=== PATIENT | male | born 1955 | race American Indian/Alaskan Native ===

== ENCOUNTER 2016-04-01 19:13 | Inpatient (IN) | payer MEDICAID, OTHER ==
--- NOTE | 2016-04-01 20:47 | Emergency Department Report ---
HPI - General Chief Complaint: Dizziness Time Seen by Provider: 04/01/16 20:31 - HPI HPI: This is a 60-year-old Afro-Polish male presents to the emergency department from home by EMS with complaint of some dizziness. Patient says that the dizziness occurs when he goes from sitting or laying to standing. When he is just laying down he does not have this dizziness. He denies any headache, vision change, chest pain, shortness of breath, nausea, vomiting or fever. He did not take anything for symptoms prior to presentation. This is been going on for the past 2 days. No recent travel or sick contacts at home. He does not have a primary care doctor. He has a past medical history of non-insulin- dependent diabetes. Patient says he had the same set of symptoms 1 year ago and at that point he required a blood transfusion and was admitted here to [facility]. ED Past Medical Hx - Past Medical History Hx Congestive Heart Failure: No Hx Diabetes: Yes Hx Asthma: No Hx COPD: No - Surgical History Past Surgical History?: No - Social History Smoking Status: Current Every Day Smoker Substance Use Type: None - Medications Home Medications: Home Medications Medication Instructions Recorded Confirmed Last Taken Type metFORMIN 500 mg PO DAILY 04/01/16 04/01/16 Unknown History ED Review of Systems ROS: Stated complaint: DIZZY AND WEAK Other details as noted in HPI Comment: All other systems reviewed and negative Constitutional: denies: chills, fever Eyes: denies: eye pain, eye discharge, vision change ENT: denies: ear pain, throat pain Respiratory: denies: cough, shortness of breath, wheezing Cardiovascular: denies: chest pain, palpitations Gastrointestinal: denies: abdominal pain, nausea, diarrhea Genitourinary: denies: urgency, dysuria Musculoskeletal: denies: back pain, joint swelling, arthralgia Skin: denies: rash, lesions Neurological: other (dizziness/lightheaded). denies: headache, weakness, paresthesias Physical Exam - Physical Exam Vital Signs: Vital Signs 04/01/16 20:06 Temperature 98 F Pulse Rate 83 Respiratory 16 Rate Blood Pressure 136/83 O2 Sat by Pulse 100 Oximetry Physical Exam: GENERAL: The patient is well-developed well-nourished. HEENT: Normocephalic. Atraumatic. Extraocular motions are intact. Patient has moist mucous membranes. Pupils equal reactive to light bilaterally. Slightly pale conjunctiva bilaterally. NECK: Supple. Trachea is midline. CHEST/LUNGS: Clear to auscultation. There is no respiratory distress noted. HEART/CARDIOVASCULAR: Regular. There is no tachycardia. There is no gallop rub or murmur. ABDOMEN: Abdomen is soft, nontender. Patient has normal bowel sounds. There is no abdominal distention. SKIN: There is no rash. There is no edema. There is no diaphoresis. NEURO: The patient is awake, alert, and oriented. The patient is cooperative. The patient has no focal neurologic deficits. The patient has normal speech. Cranial nerves II through XII grossly intact. No dysmetria or pronator drift. MUSCULOSKELETAL: There is no tenderness or deformity. There is no limitation range of motion. There is no evidence of acute injury. Muscle strength 5 out of 5 for upper and lower extremities bilaterally. Cap refill less than 2 seconds. ED Course Vital Signs 04/01/16 20:06 Temperature 98 F Pulse Rate 83 Respiratory 16 Rate Blood Pressure 136/83 O2 Sat by Pulse 100 Oximetry ED Medical Decision Making - Lab Data Result diagrams: 04/01/16 20:44 04/01/16 20:44 - EKG Data -: EKG Interpreted by Tx EKG shows normal: sinus rhythm, axis (LAD), intervals, QRS complexes (left anterior fascicular block, LVH), ST-T waves (early repolarization) Rate: normal - EKG Data When compared to previous EKG there are: changes noted (LVH and early repolarization worse in this EKG from previous) Interpretation: other (sinus rhythm, left anterior fascicular block, LVH, early repolarization) - Medical Decision Making 60-year-old male presents to the emergency department with complaint of nonspecific lightheadedness and/or dizziness that seems to occur or worsen with any type of exertion or movement. Patient does have some fatigable horizontal nystagmus but otherwise does not have any focal, motor or sensory deficits. The patient says that this happened to him about 1 year ago and at that point he required transfusion for anemia. Once again the patient appears to have symptomatic anemia with hemoglobin of 6.8. 2 units of packed red blood cells been ordered and the patient be admitted to hospital for further evaluation and treatment. Patient was accepted for admission by the hospitalist, Dr marquez. - Differential Diagnosis symptomatically anemia, vasovagal, orthostatic hypotension, GA Critical Care Time: No Critical care attestation.: If time is entered above; I have spent that time in minutes in the direct care of this critically ill patient, excluding procedure time. ED Disposition Clinical Impression: Symptomatic anemia, Dizziness, Lightheadedness, Thrombocytosis, History of hepatitis C Disposition: OP ADMITTED IP TO THIS HOSP Is pt being admited?: Yes Condition: Stable Time of Disposition: 22:43
--- NOTE | 2016-04-01 21:04 | Admit Criteria Form ---
Admission Criteria Documentation: DIZZINESS Clinical Indications for Admission to Inpatient Care (Place 'X' for any and all applicable criteria): Admission is indicated for ANY ONE of the following(1)(2)(3)(4): [X ]I. Inpatient admission required rather than observation care (Also use Dizziness: Observation Care as appropriate) because of ANY ONE of the following: [ ]a) Hemodynamic instability that is severe or persistent [ X]b) Signs or symptoms that are severe or persistent (eg, vomit, orthostasis, inability to ambulate) [ ]c) Cardiac arrhythmias of immediate concern [ ]d) Severe (new) neurologic findings requiring inpatient care as indicated by ANY ONE of the following(6)(7): [ ]1) Cerebral bleeding, ischemia, or vasospasm(8)(9) [ ]2) Increased intracranial pressure or hydrocephalus(10)(11)(12) [ ]3) Papilledema [ ]4) Cerebral edema [ ]5) Mass effect on CT scan [ ]e) Continuous IV infusion of anticoagulation, platelet inhibitor, vasoactive, or antiarrhythmic medication [ ]f) Cerebral bleeding, hydrocephalus, or vasospasm monitoring(14) [ ]g) Increased intracranial pressure or cerebral edema monitoring [ ]h) Vomiting that is severe or persistent [ ]i) Other condition, treatment or monitoring requiring inpatient admission [ ]II. A suspected etiology that requires admission for treatment [ ]III. Acute bacterial labyrinthitis [ ]IV. Cerebellar, brainstem, or cerebral ischemia or hemorrhage (5) Extended stay beyond goal length of stay may be needed for evaluating and treating a specific cause of dizziness, including(32) [ ]a) Head injury (Also use Traumatic Brain Injury, Nonsurgical Treatment guideline) [ ]b) New-onset vertebrobasilar vascular insufficiency [ ]c) Acute Meniere disease with intractable symptoms [ ]d) Cardiac arrhythmias or conduction defects [ ]e) Acute neurologic event causing dizziness [ ]f) Myocardial ischemia [ ]g) Acute bacterial labyrinthitis. [ ]h) Severe acute vestibular neuronitis The original [email or web address] content created by [email or web address] has been revised. The portions of the content which have been revised are identified through the use of italic text or in bold, and [facility] [employer] has neither reviewed nor approved the modified material. All other unmodified content is copyright [facility]. Please see references footnoted in the original [facility] edition 2016 Admission Criteria Met: Pending
[2016-04-01 21:25] LABS: Basophils % (Auto) 1.5 % (0.0-1.8); Eosinophils % (Auto) 0.6 % (0.0-4.3); Mean Corpuscular HGB Conc 28 % (32-34); Platelet Count 965 K/mm3 (140-440); Red Blood Count 4.11 M/mm3 (3.65-5.03); White Blood Count 4.7 K/mm3 (4.5-11.0)
[2016-04-01 21:30] LABS: Hematocrit 24.4 % (35.5-45.6); Hemoglobin 6.8 gm/dl (11.8-15.2); Mean Corpuscular Hemoglobin 17 pg (28-32); Mean Corpuscular Volume 59 fl (84-94)
[2016-04-01 21:32] LABS: Anion Gap 21 mmol/L; BUN/Creatinine Ratio 28.33; Blood Urea Nitrogen 17 mg/dL (9-20); Carbon Dioxide 25 mmol/L (22-30); Chloride 96.2 mmol/L (98-107); Glucose 244 mg/dL (75-100); Potassium 4.4 mmol/L (3.6-5.0); Sodium 138 mmol/L (137-145)
[2016-04-01] MEDS ORDERED: NACL 0.9% 500 ML 500 ML IV ONE (21:48)
--- NOTE | 2016-04-01 22:26 | History and Physical Report ---
History of Present Illness Date of examination: 04/01/16 Date of admission: 04/01/16 Chief complaint: presyncope History of present illness: This is a 60-year-old male presents to the emergency department from home by EMS with complaint of some dizziness. Patient says that the dizziness occurs when he goes from sitting or laying to standing. When he is just laying down he does not have this dizziness. He denies any headache, vision change, chest pain, shortness of breath or fever. No recent travel or sick contacts at home. He does not have a primary care doctor. He has a past medical history of [id number] diabetes. Patient had a similar episode and was hospitalized here April 2015. The patient did not have any endoscopy at that time. The patient reports having anemia for at least 10 years and has been suspected of having chronic GI blood loss. His workup in [facility] has included several colonoscopies, the last of which was approximately two years ago and was unrevealing. He reports having upper endoscopy as well which has been negative although has never had a pill camera test. The patient has been on iron therapy chronically. The patient denies any weight loss, melena, rectal bleeding, abdominal pain, nausea or vomiting. Past History Past Medical History: diabetes, hepatitis (C) Past Surgical History: No surgical history Social history: no significant social history Family history: no significant family history Medications and Allergies Allergies Allergy/AdvReac Type Severity Reaction Status Date / Time No Known Allergies Allergy Verified 04/09/15 13:02 Home Medications Medication Instructions Recorded Confirmed Last Taken Type metFORMIN 500 mg PO DAILY 04/01/16 04/01/16 Unknown History Review of Systems All systems: negative Exam - Constitutional Vitals: Temp Pulse Resp BP Pulse Ox 98 F 83 16 136/83 100 04/01/16 20:06 04/01/16 20:06 04/01/16 20:06 04/01/16 20:06 04/01/16 20:06 General appearance: Present: no acute distress, well-nourished - EENT Eyes: Present: PERRL, scleral icterus ENT: hearing intact, clear oral mucosa - Neck Neck: Present: supple, normal ROM - Respiratory Respiratory effort: normal Respiratory: bilateral: CTA - Cardiovascular Heart Sounds: Present: S1 & S2. Absent: rub, click - Extremities Extremities: pulses symmetrical, No edema Peripheral Pulses: within normal limits - Abdominal General gastrointestinal: Present: soft, non-tender, non-distended, normal bowel sounds Male genitourinary: Present: normal - Integumentary Integumentary: Present: clear, warm, dry - Musculoskeletal Musculoskeletal: gait normal, strength equal bilaterally - Psychiatric Psychiatric: appropriate mood/affect, intact judgment & insight - Neurologic Neurologic: CNII-XII intact, moves all extremities Results - Labs CBC & Chem 7: 04/01/16 20:44 04/01/16 20:44 Labs: Laboratory Last Values WBC 4.7 K/mm3 (4.5-11.0) 04/01/16 20:44 RBC 4.11 M/mm3 (3.65-5.03) 04/01/16 20:44 Hgb 6.8 gm/dl (11.8-15.2) L 04/01/16 20:44 Hct 24.4 % (35.5-45.6) L 04/01/16 20:44 MCV 59 fl (84-94) L 04/01/16 20:44 MCH 17 pg (28-32) L 04/01/16 20:44 MCHC 28 % (32-34) L 04/01/16 20:44 RDW 19.0 % (13.2-15.2) H 04/01/16 20:44 Plt Count 965 K/mm3 (140-440) H 04/01/16 20:44 Lymph % (Auto) 19.9 % (13.4-35.0) 04/01/16 20:44 Labette % (Auto) 8.6 % (0.0-7.3) H 04/01/16 20:44 Eos % (Auto) 0.6 % (0.0-4.3) 04/01/16 20:44 Baso % (Auto) 1.5 % (0.0-1.8) 04/01/16 20:44 Lymph # 0.9 K/mm3 (1.2-5.4) L 04/01/16 20:44 Labette # 0.4 K/mm3 (0.0-0.8) 04/01/16 20:44 Eos # 0.0 K/mm3 (0.0-0.4) 04/01/16 20:44 Baso # 0.1 K/mm3 (0.0-0.1) 04/01/16 20:44 Seg Neutrophils % 69.4 % (40.0-70.0) 04/01/16 20:44 Seg Neutrophils # 3.3 K/mm3 (1.8-7.7) 04/01/16 20:44 Carbon Dioxide 25 mmol/L (22-30) 04/01/16 20:44 BUN 17 mg/dL (9-20) 04/01/16 20:44 Creatinine 0.6 mg/dL (0.8-1.5) L 04/01/16 20:44 Estimated GFR > 60 ml/min 04/01/16 20:44 BUN/Creatinine Ratio 28.33 % 04/01/16 20:44 Glucose 244 mg/dL (75-100) H 04/01/16 20:44 POC Glucose 273 (70-105) H 04/01/16 20:15 Calcium 9.0 mg/dL (8.4-10.2) 04/01/16 20:44 Troponin T < 0.010 ng/mL (0.00-0.029) 04/01/16 20:44 TSH 1.220 mlU/mL (0.270-4.200) 04/01/16 20:51 Assessment and Plan Assessment and plan: 1. Anemia likely secondary to chronic blood loss. He has had some workup in the past which has included colonoscopy and probably upper endoscopy by his description elsewhere. He has not had a capsule endoscopy test to exclude small bowel pathology. Patient was scheduled for outpatient workup per GI's note from April 2015. Patient however denies any endoscopy for the past 2 years since he has been in [place]. Consider GI consultation. Transfuse 2 units packed red blood cells. Patient with no signs of active bleeding. Check iron studies, B12, folate and LDH levels. Protonix 40 mg IV twice a day. 2. Hepatitis C. Follow-up with GI. 3. Presyncope. Etiology secondary to above/orthostasis. 4. DVT prophylaxis. Hold anticoagulation, SCDs only.
[2016-04-01] MEDS ORDERED: DULCOLAX PR PRN (22:31)
[2016-04-01] MEDS ORDERED: ZOFRAN IV PRN (22:31)
[2016-04-01] MEDS ORDERED: MILK OF MAGNESIA PO PRN (22:31)
[2016-04-01 23:30] LABS: Albumin/Globulin Ratio 1.3 %; Bilirubin,Direct 0.2 mg/dL (0-0.2); Bilirubin,Indirect 0.3 mg/dL; Bilirubin,Total 0.5 mg/dL (0.1-1.2); Iron 12 ug/dL (49-181); Iron 13 ug/dL (49-181); Lactate Dehydrogenase 118 units/L (91-180); Total Protein 7.1 g/dL (6.3-8.2)
[2016-04-01 23:40] LABS: Total Iron Binding Capacity 524 mcg/dL (250-450)
[2016-04-02] MEDS: TYLENOL PO PRN ×2 (02:33→08:09)
[2016-04-02 07:22] LABS: Mean Corpuscular HGB Conc 28 % (32-34); Platelet Count 775 K/mm3 (140-440); Red Blood Count 3.52 M/mm3 (3.65-5.03); Red Cell Distribution Width 18.8 % (13.2-15.2); White Blood Count 4.9 K/mm3 (4.5-11.0)
[2016-04-02 07:41] LABS: Anion Gap 18 mmol/L; BUN/Creatinine Ratio 28.33; Blood Urea Nitrogen 17 mg/dL (9-20); Calcium 8.5 mg/dL (8.4-10.2); Carbon Dioxide 25 mmol/L (22-30); Chloride 95.5 mmol/L (98-107); Glucose 201 mg/dL (75-100); Potassium 3.7 mmol/L (3.6-5.0); Sodium 135 mmol/L (137-145)
[2016-04-02 07:48] LABS: Hematocrit 20.9 % (35.5-45.6); Mean Corpuscular Hemoglobin 17 pg (28-32); Mean Corpuscular Volume 59 fl (84-94)
[2016-04-02 07:51] LABS: Hemoglobin 5.9 gm/dl (11.8-15.2)
[2016-04-02 09:06] LABS: Basophils % (Manual) 0 % (0.0-1.8); Blastocytes % (Manual) 0 %
[2016-04-02 09:07] LABS: Anisocytosis 1+; Elliptocytes Few; Hypochromasia 3+; Tear Drop Cells Few
[2016-04-02 09:08] LABS: Large Platelets Few; Microcytosis 2+; Ovalocytes Few; Platelet Estimate Appears Increased; Polychromasia Few
[2016-04-02 09:09] LABS: Diff Status Complete
[2016-04-02] MEDS: PROTONIX IV SCH ×2 (09:24→21:34)
[2016-04-02] MEDS ORDERED: FLUARIX QUAD 2016-2017(36 MOS+) IM ONE (12:00)
[2016-04-02] MEDS ORDERED: PNEUMOVAX 23 IM ONE (12:00)
--- NOTE | 2016-04-02 17:08 | Progress Note ---
Assessment and Plan Assessment and plan: -- Anemia likely secondary to chronic blood loss. Patient had extensive evaluation in the past by GI , received multiple units of blood transfusion Transfuse 2 units of PRBC closely monitor H&H , additional PRBC if needed We will consider GI evaluation if any change, patient will follow with GI as outpatient upon discharge --GI recommended capsule endoscopy as outpatient getting previous admission -- Hepatitis C. continue current management -- Presyncope. Candidate for symptomatic anemia -- DVT prophylaxis. No pharmacologic anticoagulation, use SCDs . Patient full CODE STATUS Condition treatment plan discussed in detail with the patient as well as his nurse and the case management History Interval history: patient seen and evaluated medical records reviewed No new events reported by the nursing staff Patient has significant drop in H&H Denies headache dizziness Denies hematemesis or melena Vital signs stable Hospitalist Physical - Constitutional Vitals: Temp Pulse Resp BP Pulse Ox 98.5 F 86 18 130/69 97 04/02/16 16:00 04/02/16 16:00 04/02/16 16:00 04/02/16 16:00 04/02/16 12:16 General appearance: Present: no acute distress, well-nourished - EENT Eyes: Present: PERRL, EOM intact - Neck Neck: Present: supple, normal ROM - Respiratory Respiratory effort: normal Respiratory: bilateral: diminished, negative: rales, rhonchi, wheezing - Cardiovascular Rhythm: regular Heart Sounds: Present: S1 & S2 - Extremities Extremities: no ischemia, pulses intact, pulses symmetrical Peripheral Pulses: within normal limits - Abdominal General gastrointestinal: soft, non-tender, non-distended, normal bowel sounds - Integumentary Integumentary: Present: clear, warm - Psychiatric Psychiatric: appropriate mood/affect, cooperative - Neurologic Neurologic: CNII-XII intact, moves all extremities Results - Labs CBC & Chem 7: 04/02/16 06:39 04/02/16 06:39 Labs: Laboratory Last Values WBC 4.9 K/mm3 (4.5-11.0) 04/02/16 06:39 RBC 3.52 M/mm3 (3.65-5.03) L 04/02/16 06:39 Hgb 5.9 gm/dl (11.8-15.2) L* 04/02/16 06:39 Hct 20.9 % (35.5-45.6) L 04/02/16 06:39 MCV 59 fl (84-94) L 04/02/16 06:39 MCH 17 pg (28-32) L 04/02/16 06:39 MCHC 28 % (32-34) L 04/02/16 06:39 RDW 18.8 % (13.2-15.2) H 04/02/16 06:39 Plt Count 775 K/mm3 (140-440) H 04/02/16 06:39 Lymph % (Auto) 19.9 % (13.4-35.0) 04/01/16 20:44 Drew % (Auto) 8.6 % (0.0-7.3) H 04/01/16 20:44 Eos % (Auto) 0.6 % (0.0-4.3) 04/01/16 20:44 Baso % (Auto) 1.5 % (0.0-1.8) 04/01/16 20:44 Lymph # 0.9 K/mm3 (1.2-5.4) L 04/01/16 20:44 Drew # 0.4 K/mm3 (0.0-0.8) 04/01/16 20:44 Eos # 0.0 K/mm3 (0.0-0.4) 04/01/16 20:44 Baso # 0.1 K/mm3 (0.0-0.1) 04/01/16 20:44 Add Manual Diff Complete 04/02/16 06:39 Total Counted 100 04/02/16 06:39 Seg Neutrophils % 69.4 % (40.0-70.0) 04/01/16 20:44 Seg Neuts % (Manual) 54.0 % (40.0-70.0) 04/02/16 06:39 Band Neutrophils % 0 % 04/02/16 06:39 Lymphocytes % (Manual) 33.0 % (13.4-35.0) 04/02/16 06:39 Reactive Lymphs % (Man) 0 % 04/02/16 06:39 Monocytes % (Manual) 9.0 % (0.0-7.3) H 04/02/16 06:39 Eosinophils % (Manual) 4.0 % (0.0-4.3) 04/02/16 06:39 Basophils % (Manual) 0 % (0.0-1.8) 04/02/16 06:39 Metamyelocytes % 0 % 04/02/16 06:39 Myelocytes % 0 % 04/02/16 06:39 Promyelocytes % 0 % 04/02/16 06:39 Blast Cells % 0 % 04/02/16 06:39 Nucleated RBC % Not Reportable 04/02/16 06:39 Seg Neutrophils # 3.3 K/mm3 (1.8-7.7) 04/01/16 20:44 Seg Neutrophils # Man 2.6 K/mm3 (1.8-7.7) 04/02/16 06:39 Band Neutrophils # 0.0 K/mm3 04/02/16 06:39 Lymphocytes # (Manual) 1.6 K/mm3 (1.2-5.4) 04/02/16 06:39 Abs React Lymphs (Man) 0.0 K/mm3 04/02/16 06:39 Monocytes # (Manual) 0.4 K/mm3 (0.0-0.8) 04/02/16 06:39 Eosinophils # (Manual) 0.2 K/mm3 (0.0-0.4) 04/02/16 06:39 Basophils # (Manual) 0.0 K/mm3 (0.0-0.1) 04/02/16 06:39 Metamyelocytes # 0.0 K/mm3 04/02/16 06:39 Myelocytes # 0.0 K/mm3 04/02/16 06:39 Promyelocytes # 0.0 K/mm3 04/02/16 06:39 Blast Cells # 0.0 K/mm3 04/02/16 06:39 WBC Morphology Not Reportable 04/02/16 06:39 Hypersegmented Neuts Not Reportable 04/02/16 06:39 Hyposegmented Neuts Not Reportable 04/02/16 06:39 Hypogranular Neuts Not Reportable 04/02/16 06:39 Smudge Cells Not Reportable 04/02/16 06:39 Toxic Granulation Not Reportable 04/02/16 06:39 Toxic Vacuolation Not Reportable 04/02/16 06:39 Dohle Bodies Not Reportable 04/02/16 06:39 Pelger-Huet Anomaly Not Reportable 04/02/16 06:39 Katia Rods Not Reportable 04/02/16 06:39 Platelet Estimate Appears increased 04/02/16 06:39 Clumped Platelets Not Reportable 04/02/16 06:39 Plt Clumps, EDTA Not Reportable 04/02/16 06:39 Large Platelets Few 04/02/16 06:39 Giant Platelets Not Reportable 04/02/16 06:39 Platelet Satelliting Not Reportable 04/02/16 06:39 Plt Morphology Comment Not Reportable 04/02/16 06:39 RBC Morphology Not Reportable 04/02/16 06:39 Dimorphic RBCs Not Reportable 04/02/16 06:39 Polychromasia Few 04/02/16 06:39 Hypochromasia 3+ 04/02/16 06:39 Poikilocytosis Not Reportable 04/02/16 06:39 Anisocytosis 1+ 04/02/16 06:39 Microcytosis 2+ 04/02/16 06:39 Macrocytosis Not Reportable 04/02/16 06:39 Spherocytes Not Reportable 04/02/16 06:39 Pappenheimer Bodies Not Reportable 04/02/16 06:39 Sickle Cells Not Reportable 04/02/16 06:39 Target Cells Not Reportable 04/02/16 06:39 Tear Drop Cells Few 04/02/16 06:39 Ovalocytes Few 04/02/16 06:39 Helmet Cells Not Reportable 04/02/16 06:39 Suarez-Saxton Bodies Not Reportable 04/02/16 06:39 Eagan Rings Not Reportable 04/02/16 06:39 Luke Cells Not Reportable 04/02/16 06:39 Bite Cells Not Reportable 04/02/16 06:39 Crenated Cell Not Reportable 04/02/16 06:39 Elliptocytes Few 04/02/16 06:39 Acanthocytes (Spur) Not Reportable 04/02/16 06:39 Rouleaux Not Reportable 04/02/16 06:39 Hemoglobin C Crystals Not Reportable 04/02/16 06:39 Schistocytes Not Reportable 04/02/16 06:39 Malaria parasites Not Reportable 04/02/16 06:39 Jl Bodies Not Reportable 04/02/16 06:39 Hem Pathologist Commnt No 04/02/16 06:39 Sodium 135 mmol/L (137-145) L 04/02/16 06:39 Potassium 3.7 mmol/L (3.6-5.0) 04/02/16 06:39 Chloride 95.5 mmol/L (98-107) L 04/02/16 06:39 Carbon Dioxide 25 mmol/L (22-30) 04/02/16 06:39 Anion Gap 18 mmol/L 04/02/16 06:39 BUN 17 mg/dL (9-20) 04/02/16 06:39 Creatinine 0.6 mg/dL (0.8-1.5) L 04/02/16 06:39 Estimated GFR > 60 ml/min 04/02/16 06:39 BUN/Creatinine Ratio 28.33 % 04/02/16 06:39 Glucose 201 mg/dL (75-100) H 04/02/16 06:39 POC Glucose 273 (70-105) H 04/01/16 20:15 Calcium 8.5 mg/dL (8.4-10.2) 04/02/16 06:39 Iron 12 ug/dL (49-181) L 04/01/16 22:47 TIBC 524 mcg/dL (250-450) H 04/01/16 22:47 Total Bilirubin 0.5 mg/dL (0.1-1.2) 04/01/16 22:47 Direct Bilirubin 0.2 mg/dL (0-0.2) 04/01/16 22:47 Indirect Bilirubin 0.3 mg/dL 04/01/16 22:47 AST 17 units/L (5-40) 04/01/16 22:47 ALT 10 units/L (7-56) 04/01/16 22:47 Alkaline Phosphatase 89 units/L (35-129) 04/01/16 22:47 Lactate Dehydrogenase 118 units/L (91-180) 04/01/16 22:47 Troponin T < 0.010 ng/mL (0.00-0.029) 04/02/16 01:27 Total Protein 7.1 g/dL (6.3-8.2) 04/01/16 22:47 Albumin 4.0 g/dL (3.9-5) 04/01/16 22:47 Albumin/Globulin Ratio 1.3 % 04/01/16 22:47 Vitamin B12 659.9 pg/mL (211-911) 04/01/16 22:47 Folate 17.00 ng/mL (7.3-26.0) 04/01/16 22:47 TSH 1.220 mlU/mL (0.270-4.200) 04/01/16 20:51 Blood Type A POSITIVE 04/01/16 22:47 Antibody Screen Negative 04/01/16 22:47 Crossmatch See Detail 04/01/16 22:47
[2016-04-03] MEDS: PROTONIX IV SCH ×2 (10:37→21:41)
[2016-04-03] MEDS ORDERED: PNEUMOVAX 23 IM ONE (12:00)
[2016-04-03] MEDS ORDERED: FLUARIX QUAD 2016-2017(36 MOS+) IM ONE (12:00)
--- NOTE | 2016-04-03 14:55 | Progress Note ---
Hospitalist Physical - Constitutional Vitals: Temp Pulse Resp BP Pulse Ox 98.1 F 88 20 133/71 100 04/03/16 08:00 04/03/16 08:00 04/03/16 08:00 04/03/16 08:00 04/03/16 10:31 General appearance: Present: no acute distress, well-nourished Results - Labs CBC & Chem 7: 04/02/16 06:39 04/02/16 06:39 Labs: Laboratory Last Values WBC 4.9 K/mm3 (4.5-11.0) 04/02/16 06:39 RBC 3.52 M/mm3 (3.65-5.03) L 04/02/16 06:39 Hgb 5.9 gm/dl (11.8-15.2) L* 04/02/16 06:39 Hct 20.9 % (35.5-45.6) L 04/02/16 06:39 MCV 59 fl (84-94) L 04/02/16 06:39 MCH 17 pg (28-32) L 04/02/16 06:39 MCHC 28 % (32-34) L 04/02/16 06:39 RDW 18.8 % (13.2-15.2) H 04/02/16 06:39 Plt Count 775 K/mm3 (140-440) H 04/02/16 06:39 Lymph % (Auto) 19.9 % (13.4-35.0) 04/01/16 20:44 [place] % (Auto) 8.6 % (0.0-7.3) H 04/01/16 20:44 Eos % (Auto) 0.6 % (0.0-4.3) 04/01/16 20:44 Baso % (Auto) 1.5 % (0.0-1.8) 04/01/16 20:44 Lymph # 0.9 K/mm3 (1.2-5.4) L 04/01/16 20:44 [place] # 0.4 K/mm3 (0.0-0.8) 04/01/16 20:44 Eos # 0.0 K/mm3 (0.0-0.4) 04/01/16 20:44 Baso # 0.1 K/mm3 (0.0-0.1) 04/01/16 20:44 Add Manual Diff Complete 04/02/16 06:39 Total Counted 100 04/02/16 06:39 Seg Neutrophils % 69.4 % (40.0-70.0) 04/01/16 20:44 Seg Neuts % (Manual) 54.0 % (40.0-70.0) 04/02/16 06:39 Band Neutrophils % 0 % 04/02/16 06:39 Lymphocytes % (Manual) 33.0 % (13.4-35.0) 04/02/16 06:39 Reactive Lymphs % (Man) 0 % 04/02/16 06:39 Monocytes % (Manual) 9.0 % (0.0-7.3) H 04/02/16 06:39 Eosinophils % (Manual) 4.0 % (0.0-4.3) 04/02/16 06:39 Basophils % (Manual) 0 % (0.0-1.8) 04/02/16 06:39 Metamyelocytes % 0 % 04/02/16 06:39 Myelocytes % 0 % 04/02/16 06:39 Promyelocytes % 0 % 04/02/16 06:39 Blast Cells % 0 % 04/02/16 06:39 Nucleated RBC % Not Reportable 04/02/16 06:39 Seg Neutrophils # 3.3 K/mm3 (1.8-7.7) 04/01/16 20:44 Seg Neutrophils # Man 2.6 K/mm3 (1.8-7.7) 04/02/16 06:39 Band Neutrophils # 0.0 K/mm3 04/02/16 06:39 Lymphocytes # (Manual) 1.6 K/mm3 (1.2-5.4) 04/02/16 06:39 Abs React Lymphs (Man) 0.0 K/mm3 04/02/16 06:39 Monocytes # (Manual) 0.4 K/mm3 (0.0-0.8) 04/02/16 06:39 Eosinophils # (Manual) 0.2 K/mm3 (0.0-0.4) 04/02/16 06:39 Basophils # (Manual) 0.0 K/mm3 (0.0-0.1) 04/02/16 06:39 Metamyelocytes # 0.0 K/mm3 04/02/16 06:39 Myelocytes # 0.0 K/mm3 04/02/16 06:39 Promyelocytes # 0.0 K/mm3 04/02/16 06:39 Blast Cells # 0.0 K/mm3 04/02/16 06:39 WBC Morphology Not Reportable 04/02/16 06:39 Hypersegmented Neuts Not Reportable 04/02/16 06:39 Hyposegmented Neuts Not Reportable 04/02/16 06:39 Hypogranular Neuts Not Reportable 04/02/16 06:39 Smudge Cells Not Reportable 04/02/16 06:39 Toxic Granulation Not Reportable 04/02/16 06:39 Toxic Vacuolation Not Reportable 04/02/16 06:39 Dohle Bodies Not Reportable 04/02/16 06:39 Pelger-Huet Anomaly Not Reportable 04/02/16 06:39 Katia Rods Not Reportable 04/02/16 06:39 Platelet Estimate Appears increased 04/02/16 06:39 Clumped Platelets Not Reportable 04/02/16 06:39 Plt Clumps, EDTA Not Reportable 04/02/16 06:39 Large Platelets Few 04/02/16 06:39 Giant Platelets Not Reportable 04/02/16 06:39 Platelet Satelliting Not Reportable 04/02/16 06:39 Plt Morphology Comment Not Reportable 04/02/16 06:39 RBC Morphology Not Reportable 04/02/16 06:39 Dimorphic RBCs Not Reportable 04/02/16 06:39 Polychromasia Few 04/02/16 06:39 Hypochromasia 3+ 04/02/16 06:39 Poikilocytosis Not Reportable 04/02/16 06:39 Anisocytosis 1+ 04/02/16 06:39 Microcytosis 2+ 04/02/16 06:39 Macrocytosis Not Reportable 04/02/16 06:39 Spherocytes Not Reportable 04/02/16 06:39 Pappenheimer Bodies Not Reportable 04/02/16 06:39 Sickle Cells Not Reportable 04/02/16 06:39 Target Cells Not Reportable 04/02/16 06:39 Tear Drop Cells Few 04/02/16 06:39 Ovalocytes Few 04/02/16 06:39 Helmet Cells Not Reportable 04/02/16 06:39 Suarez-[place] Bodies Not Reportable 04/02/16 06:39 [place] Rings Not Reportable 04/02/16 06:39 [place] Cells Not Reportable 04/02/16 06:39 Bite Cells Not Reportable 04/02/16 06:39 Crenated Cell Not Reportable 04/02/16 06:39 Elliptocytes Few 04/02/16 06:39 Acanthocytes (Spur) Not Reportable 04/02/16 06:39 Rouleaux Not Reportable 04/02/16 06:39 Hemoglobin C Crystals Not Reportable 04/02/16 06:39 Schistocytes Not Reportable 04/02/16 06:39 Malaria parasites Not Reportable 04/02/16 06:39 Jl Bodies Not Reportable 04/02/16 06:39 Hem Pathologist Commnt No 04/02/16 06:39 Sodium 135 mmol/L (137-145) L 04/02/16 06:39 Potassium 3.7 mmol/L (3.6-5.0) 04/02/16 06:39 Chloride 95.5 mmol/L (98-107) L 04/02/16 06:39 Carbon Dioxide 25 mmol/L (22-30) 04/02/16 06:39 Anion Gap 18 mmol/L 04/02/16 06:39 BUN 17 mg/dL (9-20) 04/02/16 06:39 Creatinine 0.6 mg/dL (0.8-1.5) L 04/02/16 06:39 Estimated GFR > 60 ml/min 04/02/16 06:39 BUN/Creatinine Ratio 28.33 % 04/02/16 06:39 Glucose 201 mg/dL (75-100) H 04/02/16 06:39 POC Glucose 273 (70-105) H 04/01/16 20:15 Calcium 8.5 mg/dL (8.4-10.2) 04/02/16 06:39 Iron 12 ug/dL (49-181) L 04/01/16 22:47 TIBC 524 mcg/dL (250-450) H 04/01/16 22:47 Total Bilirubin 0.5 mg/dL (0.1-1.2) 04/01/16 22:47 Direct Bilirubin 0.2 mg/dL (0-0.2) 04/01/16 22:47 Indirect Bilirubin 0.3 mg/dL 04/01/16 22:47 AST 17 units/L (5-40) 04/01/16 22:47 ALT 10 units/L (7-56) 04/01/16 22:47 Alkaline Phosphatase 89 units/L (35-129) 04/01/16 22:47 Lactate Dehydrogenase 118 units/L (91-180) 04/01/16 22:47 Troponin T < 0.010 ng/mL (0.00-0.029) 04/02/16 01: Total Protein 7.1 g/dL (6.3-8.2) 04/01/16 22:47 Albumin 4.0 g/dL (3.9-5) 04/01/16 22:47 Albumin/Globulin Ratio 1.3 % 04/01/16 22:47 Vitamin B12 659.9 pg/mL (211-911) 04/01/16 22:47 Folate 17.00 ng/mL (7.3-26.0) 04/01/16 22:47 TSH 1.220 mlU/mL (0.270-4.200) 04/01/16 20:51 Blood Type A POSITIVE 04/01/16 22:47 Antibody Screen Negative 04/01/16 22:47 Crossmatch See Detail 04/01/16 22:47
[2016-04-03 15:57] LABS: Mean Corpuscular HGB Conc 29 % (32-34); Platelet Count 573 K/mm3 (140-440); Red Blood Count 3.83 M/mm3 (3.65-5.03); White Blood Count 4.6 K/mm3 (4.5-11.0)
[2016-04-03 16:03] LABS: Hematocrit 25.7 % (35.5-45.6); Hemoglobin 7.6 gm/dl (11.8-15.2); Mean Corpuscular Volume 67 fl (84-94)
[2016-04-03 16:04] LABS: Mean Corpuscular Hemoglobin 20 pg (28-32); Red Cell Distribution Width 25.9 % (13.2-15.2)
--- NOTE | 2016-04-03 16:20 | Progress Note ---
Assessment and Plan Assessment and plan: -- Anemia likely secondary to acute on chronic blood loss. Heme-positive stool Patient had extensive evaluation in the past by GI , received multiple units of blood transfusion Status post 2 units of PRBC transfusion, mild improvement of H&H Consult GI for further evaluation -- Hepatitis C. continue current management --2 diabetes mellitus, moderate control -- Presyncope. Candidate for symptomatic anemia -- DVT prophylaxis. No pharmacologic anticoagulation, use SCDs . Patient full CODE STATUS Condition treatment plan discussed in detail with the patient as well as his nurse and the case management Plan Of care discussed with the patient as well as the nurse History Interval history: Patient seen and evaluated medical records reviewed Admitted with severe anemia status post blood transfusion Mild improvement of H&H Today stool guaiac is positive Patient complains of generalized weakness Alert awake oriented 3 not in acute distress Hospitalist Physical - Constitutional Vitals: Temp Pulse Resp BP Pulse Ox 98.1 F 88 20 133/71 100 04/03/16 08:00 04/03/16 08:00 04/03/16 08:00 04/03/16 08:00 04/03/16 10:31 General appearance: Present: no acute distress, well-nourished - EENT Eyes: Present: PERRL, EOM intact - Neck Neck: Present: supple, normal ROM - Respiratory Respiratory effort: normal Respiratory: bilateral: diminished, negative: rales, rhonchi, wheezing - Cardiovascular Rhythm: regular Heart Sounds: Present: S1 & S2 - Extremities Extremities: no ischemia, pulses intact, pulses symmetrical Peripheral Pulses: within normal limits - Abdominal General gastrointestinal: soft, non-tender, non-distended, normal bowel sounds - Integumentary Integumentary: Present: clear, warm - Psychiatric Psychiatric: appropriate mood/affect, cooperative - Neurologic Neurologic: CNII-XII intact, moves all extremities Results - Labs CBC & Chem 7: 04/04/16 07:44 04/04/16 07:44 Labs: Laboratory Last Values WBC 4.6 K/mm3 (4.5-11.0) 04/03/16 15:11 RBC 3.83 M/mm3 (3.65-5.03) 04/03/16 15:11 Hgb 7.6 gm/dl (11.8-15.2) L 04/03/16 15:11 Hct 25.7 % (35.5-45.6) L 04/03/16 15:11 MCV 67 fl (84-94) L D 04/03/16 15:11 MCH 20 pg (28-32) L 04/03/16 15:11 MCHC 29 % (32-34) L 04/03/16 15:11 RDW 25.9 % (13.2-15.2) H 04/03/16 15:11 Plt Count 573 K/mm3 (140-440) H 04/03/16 15:11 Lymph % (Auto) 19.9 % (13.4-35.0) 04/01/16 20:44 [place] % (Auto) 8.6 % (0.0-7.3) H 04/01/16 20:44 Eos % (Auto) 0.6 % (0.0-4.3) 04/01/16 20:44 Baso % (Auto) 1.5 % (0.0-1.8) 04/01/16 20:44 Lymph # 0.9 K/mm3 (1.2-5.4) L 04/01/16 20:44 [place] # 0.4 K/mm3 (0.0-0.8) 04/01/16 20:44 Eos # 0.0 K/mm3 (0.0-0.4) 04/01/16 20:44 Baso # 0.1 K/mm3 (0.0-0.1) 04/01/16 20:44 Add Manual Diff Complete 04/02/16 06:39 Total Counted 100 04/02/16 06:39 Seg Neutrophils % 69.4 % (40.0-70.0) 04/01/16 20:44 Seg Neuts % (Manual) 54.0 % (40.0-70.0) 04/02/16 06:39 Band Neutrophils % 0 % 04/02/16 06:39 Lymphocytes % (Manual) 33.0 % (13.4-35.0) 04/02/16 06:39 Reactive Lymphs % (Man) 0 % 04/02/16 06:39 Monocytes % (Manual) 9.0 % (0.0-7.3) H 04/02/16 06:39 Eosinophils % (Manual) 4.0 % (0.0-4.3) 04/02/16 06:39 Basophils % (Manual) 0 % (0.0-1.8) 04/02/16 06:39 Metamyelocytes % 0 % 04/02/16 06:39 Myelocytes % 0 % 04/02/16 06:39 Promyelocytes % 0 % 04/02/16 06:39 Blast Cells % 0 % 04/02/16 06:39 Nucleated RBC % Not Reportable 04/02/16 06:39 Seg Neutrophils # 3.3 K/mm3 (1.8-7.7) 04/01/16 20:44 Seg Neutrophils # Man 2.6 K/mm3 (1.8-7.7) 04/02/16 06:39 Band Neutrophils # 0.0 K/mm3 04/02/16 06:39 Lymphocytes # (Manual) 1.6 K/mm3 (1.2-5.4) 04/02/16 06:39 Abs React Lymphs (Man) 0.0 K/mm3 04/02/16 06:39 Monocytes # (Manual) 0.4 K/mm3 (0.0-0.8) 04/02/16 06:39 Eosinophils # (Manual) 0.2 K/mm3 (0.0-0.4) 04/02/16 06:39 Basophils # (Manual) 0.0 K/mm3 (0.0-0.1) 04/02/16 06:39 Metamyelocytes # 0.0 K/mm3 04/02/16 06:39 Myelocytes # 0.0 K/mm3 04/02/16 06:39 Promyelocytes # 0.0 K/mm3 04/02/16 06:39 Blast Cells # 0.0 K/mm3 04/02/16 06:39 WBC Morphology Not Reportable 04/02/16 06:39 Hypersegmented Neuts Not Reportable 04/02/16 06:39 Hyposegmented Neuts Not Reportable 04/02/16 06:39 Hypogranular Neuts Not Reportable 04/02/16 06:39 Smudge Cells Not Reportable 04/02/16 06:39 Toxic Granulation Not Reportable 04/02/16 06:39 Toxic Vacuolation Not Reportable 04/02/16 06:39 Dohle Bodies Not Reportable 04/02/16 06:39 Pelger-Huet Anomaly Not Reportable 04/02/16 06:39 Katia Rods Not Reportable 04/02/16 06:39 Platelet Estimate Appears increased 04/02/16 06:39 Clumped Platelets Not Reportable 04/02/16 06:39 Plt Clumps, EDTA Not Reportable 04/02/16 06:39 Large Platelets Few 04/02/16 06:39 Giant Platelets Not Reportable 04/02/16 06:39 Platelet Satelliting Not Reportable 04/02/16 06:39 Plt Morphology Comment Not Reportable 04/02/16 06:39 RBC Morphology Not Reportable 04/02/16 06:39 Dimorphic RBCs Not Reportable 04/02/16 06:39 Polychromasia Few 04/02/16 06:39 Hypochromasia 3+ 04/02/16 06:39 Poikilocytosis Not Reportable 04/02/16 06:39 Anisocytosis 1+ 04/02/16 06:39 Microcytosis 2+ 04/02/16 06:39 Macrocytosis Not Reportable 04/02/16 06:39 Spherocytes Not Reportable 04/02/16 06:39 Pappenheimer Bodies Not Reportable 04/02/16 06:39 Sickle Cells Not Reportable 04/02/16 06:39 Target Cells Not Reportable 04/02/16 06:39 Tear Drop Cells Few 04/02/16 06:39 Ovalocytes Few 04/02/16 06:39 Helmet Cells Not Reportable 04/02/16 06:39 [place] Bodies Not Reportable 04/02/16 06:39 [place] Rings Not Reportable 04/02/16 06:39 [place] Cells Not Reportable 04/02/16 06:39 Bite Cells Not Reportable 04/02/16 06:39 Crenated Cell Not Reportable 04/02/16 06:39 Elliptocytes Few 04/02/16 06:39 Acanthocytes (Spur) Not Reportable 04/02/16 06:39 Rouleaux Not Reportable 04/02/16 06:39 Hemoglobin C Crystals Not Reportable 04/02/16 06:39 Schistocytes Not Reportable 04/02/16 06:39 Malaria parasites Not Reportable 04/02/16 06:39 Jl Bodies Not Reportable 04/02/16 06:39 Hem Pathologist Commnt No 04/02/16 06:39 Sodium 135 mmol/L (137-145) L 04/02/16 06:39 Potassium 3.7 mmol/L (3.6-5.0) 04/02/16 06:39 Chloride 95.5 mmol/L (98-107) L 04/02/16 06:39 Carbon Dioxide 25 mmol/L (22-30) 04/02/16 06:39 Anion Gap 18 mmol/L 04/02/16 06:39 BUN 17 mg/dL (9-20) 04/02/16 06:39 Creatinine 0.6 mg/dL (0.8-1.5) L 04/02/16 06:39 Estimated GFR > 60 ml/min 04/02/16 06:39 BUN/Creatinine Ratio 28.33 % 04/02/16 06:39 Glucose 201 mg/dL (75-100) H 04/02/16 06:39 POC Glucose 273 (70-105) H 04/01/16 20:15 Calcium 8.5 mg/dL (8.4-10.2) 04/02/16 06:39 Iron 12 ug/dL (49-181) L 04/01/16 22:47 TIBC 524 mcg/dL (250-450) H 04/01/16 22:47 Total Bilirubin 0.5 mg/dL (0.1-1.2) 04/01/16 22:47 Direct Bilirubin 0.2 mg/dL (0-0.2) 04/01/16 22:47 Indirect Bilirubin 0.3 mg/dL 04/01/16 22:47 AST 17 units/L (5-40) 04/01/16 22:47 ALT 10 units/L (7-56) 04/01/16 22:47 Alkaline Phosphatase 89 units/L (35-129) 04/01/16 22:47 Lactate Dehydrogenase 118 units/L (91-180) 04/01/16 22:47 Troponin T < 0.010 ng/mL (0.00-0.029) 04/02/16 01:27 Total Protein 7.1 g/dL (6.3-8.2) 04/01/16 22:47 Albumin 4.0 g/dL (3.9-5) 04/01/16 22:47 Albumin/Globulin Ratio 1.3 % 04/01/16 22:47 Vitamin B12 659.9 pg/mL (211-911) 04/01/16 22:47 Folate 17.00 ng/mL (7.3-26.0) 04/01/16 22:47 TSH 1.220 mlU/mL (0.270-4.200) 04/01/16 20:51 Blood Type A POSITIVE 04/01/16 22:47 Antibody Screen Negative 04/01/16 22:47 Crossmatch See Detail 04/01/16 22:47
[2016-04-04 08:12] LABS: Hematocrit 26.4 % (35.5-45.6); Hemoglobin 7.8 gm/dl (11.8-15.2); Mean Corpuscular HGB Conc 30 % (32-34); Platelet Count 461 K/mm3 (140-440); Red Blood Count 3.96 M/mm3 (3.65-5.03); White Blood Count 5.6 K/mm3 (4.5-11.0)
[2016-04-04 08:23] LABS: Anion Gap 15 mmol/L; Blood Urea Nitrogen 9 mg/dL (9-20); Calcium 8.7 mg/dL (8.4-10.2); Carbon Dioxide 26 mmol/L (22-30); Chloride 97.9 mmol/L (98-107); Glucose 241 mg/dL (75-100); Mean Corpuscular Hemoglobin 20 pg (28-32); Mean Corpuscular Volume 67 fl (84-94); Potassium 4.2 mmol/L (3.6-5.0); Red Cell Distribution Width 26.9 % (13.2-15.2); Sodium 135 mmol/L (137-145)
--- NOTE | 2016-04-04 08:36 | Gastroenterology Consultation ---
<PATRICE COOL FRANCESCA - Last Filed: 04/04/16 08:40> History of Present Illness - Reason for Consult Consult date: 04/04/16 anemia Requesting physician: ESPINOZA GLASGOW - History of Present Illness Mr. Orosco is a 60 y/o male admitted with symptomatic anemia. He reports he has been feeling dizzy over the past few days. On admission his H/H was noted at 5.9/20.9. He has a hx of chronic anemia. He has been suspected chronic GI blood loss. The patient reports having anemia for at least 10 years. His workup in [facility] has included several colonoscopies, the last of which was approximately two years ago and was unrevealing. He reports having upper endoscopy as well which has been negative although has never had a pill camera test. During his last admission 04/2015 it was recommended that the patient follow up as an outpatient for repeat EGD/Colonoscopy with pill camera. He denies any signs of bleeding such as melena, hematochezia and hematemesis. NO N/V or abdominal pain. He was also assessed during previous admission for Hepatitis C and reported that he had been treated in the past. His platelet count at that time was decreased and it was felt as though he may have the early stages of cirrhosis (hx of etoh in the past) although no imaging c/w cirrhosis. Past History Past Medical History: diabetes, hepatitis (C) Past Surgical History: No surgical history Social history: no significant social history Family history: no significant family history Medications and Allergies Allergies Allergy/AdvReac Type Severity Reaction Status Date / Time No Known Allergies Allergy Verified 04/09/15 13:02 Home Medications Medication Instructions Recorded Confirmed Last Taken Type metFORMIN 500 mg PO DAILY 04/01/16 04/01/16 Unknown History Active Meds: Active Medications Acetaminophen (Tylenol) 650 mg PO Q4H PRN PRN Reason: Pain MILD(1-3)/Fever >100.5/DURÁN Last Admin: 04/02/16 08:09 Dose: 650 mg Bisacodyl (Dulcolax) 10 mg [place] QDAY PRN PRN Reason: Constipation unrelieved by MOM Magnesium Hydroxide (Milk Of Magnesia) 30 ml PO Q4H PRN PRN Reason: Constipation Ondansetron HCl (Zofran) 4 mg IV Q8H PRN PRN Reason: N/V unrelieved by Reglan Pantoprazole Sodium (Protonix) 40 mg PO BID LUCIAN Review of Systems - Review of Systems All systems: negative Constitutional: weakness, other (dizziness) Exam - Constitutional Vital Signs: Temp Pulse Resp BP Pulse Ox 99.0 F 99 H 18 112/67 100 04/04/16 04:51 04/04/16 04:51 04/04/16 04:51 04/04/16 04:51 04/04/16 04:51 General appearance: no acute distress - EENT Eyes: EOM intact ENT: hearing intact - Neck Neck: supple - Respiratory Respiratory: bilateral: CTA - Cardiovascular Rhythm: regular Heart Sounds: Present: S1 & S2 Extremities: No edema - Gastrointestinal General gastrointestinal: Present: soft, non-tender, normal bowel sounds - Integumentary Integumentary: Present: warm, dry - Neurologic Neurological: alert and oriented x3 - Psychiatric Psychiatric: appropriate mood/affect, cooperative - Labs CBC & Chem 7: 04/04/16 07:44 04/04/16 07:44 Lab Results: Laboratory Results - last 24 hr 04/03/16 04/04/16 04/04/16 15:11 07:44 07:44 WBC 4.6 5.6 RBC 3.83 3.96 Hgb 7.6 L 7.8 L Hct 25.7 L 26.4 L MCV 67 L D 67 L MCH 20 L 20 L MCHC 29 L 30 L RDW 25.9 H 26.9 H Plt Count 573 H 461 H Sodium 135 L Potassium 4.2 Chloride 97.9 L Carbon Dioxide 26 Anion Gap 15 BUN 9 Creatinine 0.6 L Estimated GFR > 60 BUN/Creatinine Ratio 15.00 Glucose 241 H Calcium 8.7 Assessment and Plan 1. Severe Anemia -Chronic -No overt signs of bleeding. -Will tentatively plan for EGD/Colonoscopy tomorrow. -Clear liquids today -No blood thinning meds -Patient will still need outpatient pill cam and continued work up for ? Hepatitis C per office. -Prep this PM, NPO after MN. <ARCENIO HOLLEY - Last Filed: 04/05/16 08:37> Medications and Allergies Active Meds: Active Medications Acetaminophen (Tylenol) 650 mg PO Q4H PRN PRN Reason: Pain MILD(1-3)/Fever >100.5/DURÁN Last Admin: 04/02/16 08:09 Dose: 650 mg Bisacodyl (Dulcolax) 10 mg [place] QDAY PRN PRN Reason: Constipation unrelieved by MOM Magnesium Hydroxide (Milk Of Magnesia) 30 ml PO Q4H PRN PRN Reason: Constipation Ondansetron HCl (Zofran) 4 mg IV Q8H PRN PRN Reason: N/V unrelieved by Reglan Pantoprazole Sodium (Protonix) 40 mg PO BID LUCIAN Last Admin: 04/04/16 22:20 Dose: 40 mg Exam - Constitutional Vital Signs: Temp Pulse Resp BP Pulse Ox 98.7 F 87 16 119/70 98 04/05/16 07:17 04/05/16 07:17 04/05/16 07:17 04/05/16 07:17 04/05/16 07:17 - Labs CBC & Chem 7: 04/04/16 07:44 04/04/16 07:44 Lab Results: Laboratory Results - last 24 hr 04/04/16 04/04/16 04/04/16 07:44 09:47 21:59 Add Manual Diff Complete Total Counted 100 Seg Neuts % (Manual) 91.0 H Band Neutrophils % 0 Lymphocytes % (Manual) 4.0 L Reactive Lymphs % (Man) 0 Monocytes % (Manual) 4.0 Eosinophils % (Manual) 1.0 Basophils % (Manual) 0 Metamyelocytes % 0 Myelocytes % 0 Promyelocytes % 0 Blast Cells % 0 Nucleated RBC % Not Reportable Seg Neutrophils # Man 5.1 Band Neutrophils # 0.0 Lymphocytes # (Manual) 0.2 L Abs React Lymphs (Man) 0.0 Monocytes # (Manual) 0.2 Eosinophils # (Manual) 0.1 Basophils # (Manual) 0.0 Metamyelocytes # 0.0 Myelocytes # 0.0 Promyelocytes # 0.0 Blast Cells # 0.0 WBC Morphology Not Reportable Hypersegmented Neuts Not Reportable Hyposegmented Neuts Not Reportable Hypogranular Neuts Not Reportable Smudge Cells Not Reportable Toxic Granulation Not Reportable Toxic Vacuolation Not Reportable Dohle Bodies Not Reportable Pelger-Huet Anomaly Not Reportable Katia Rods Not Reportable Platelet Estimate Appears normal Clumped Platelets Not Reportable Plt Clumps, EDTA Not Reportable Large Platelets Not Reportable Giant Platelets Not Reportable Platelet Satelliting Not Reportable Plt Morphology Comment Not Reportable RBC Morphology Not Reportable Dimorphic RBCs Yes Polychromasia 1+ Hypochromasia 2+ Poikilocytosis Not Reportable Anisocytosis 3+ Microcytosis 1+ Macrocytosis Not Reportable Spherocytes Not Reportable Pappenheimer Bodies Not Reportable Sickle Cells Not Reportable Target Cells Not Reportable Tear Drop Cells Few Ovalocytes Few Helmet Cells Not Reportable Su[place] Bodies Not Reportable [place] Rings Not Reportable [place] Cells Not Reportable Bite Cells Not Reportable Crenated Cell Not Reportable Elliptocytes 1+ Acanthocytes (Spur) Not Reportable Rouleaux Not Reportable Hemoglobin C Crystals Not Reportable Schistocytes Not Reportable Malaria parasites Not Reportable Jl Bodies Not Reportable Hem Pathologist Commnt No PT 13.6 INR 1.05 POC Glucose 244 H 04/05/16 06:02 Add Manual Diff Total Counted Seg Neuts % (Manual) Band Neutrophils % Lymphocytes % (Manual) Reactive Lymphs % (Man) Monocytes % (Manual) Eosinophils % (Manual) Basophils % (Manual) Metamyelocytes % Myelocytes % Promyelocytes % Blast Cells % Nucleated RBC % Seg Neutrophils # Man Band Neutrophils # Lymphocytes # (Manual) Abs React Lymphs (Man) Monocytes # (Manual) Eosinophils # (Manual) Basophils # (Manual) Metamyelocytes # Myelocytes # Promyelocytes # Blast Cells # WBC Morphology Hypersegmented Neuts Hyposegmented Neuts Hypogranular Neuts Smudge Cells Toxic Granulation Toxic Vacuolation Dohle Bodies Pelger-Huet Anomaly Katia Rods Platelet Estimate Clumped Platelets Plt Clumps, EDTA Large Platelets Giant Platelets Platelet Satelliting Plt Morphology Comment RBC Morphology Dimorphic RBCs Polychromasia Hypochromasia Poikilocytosis Anisocytosis Microcytosis Macrocytosis Spherocytes Pappenheimer Bodies Sickle Cells Target Cells Tear Drop Cells Ovalocytes Helmet Cells Suarez-[place] Bodies [place] Rings Luke Cells Bite Cells Crenated Cell Elliptocytes Acanthocytes (Spur) Rouleaux Hemoglobin C Crystals Schistocytes Malaria parasites Jl Bodies Hem Pathologist Commnt PT INR POC Glucose 183 H Assessment and Plan Pt seen and examined on 03/25. Agree with note by Anya Cool. He has a h/o chronic [place]IL[place], stopped taking iron ~10 months ago. Previous work up in [facility] included colonoscopy and EGD in the last 2-3 years which did not reveal etiology per pt. No overt GI bleeding. He will need repeat egd/ colonoscopy and likely capsule study which can all be done as outpatient. Restart iron, avoid NSAIDs.
[2016-04-04 09:48] LABS: Basophils % (Manual) 0 % (0.0-1.8); Blastocytes % (Manual) 0 %; Microcytosis 1+
[2016-04-04 09:49] LABS: Anisocytosis 3+; Hypochromasia 2+; Polychromasia 1+
[2016-04-04 09:50] LABS: Elliptocytes 1+; Ovalocytes Few; Tear Drop Cells Few
[2016-04-04 09:51] LABS: Diff Status Complete
[2016-04-04 10:29] LABS: INR 1.05 (0.87-1.13)
[2016-04-04] MEDS: PROTONIX PO SCH ×2 (12:45→22:20)
[2016-04-04] MEDS ORDERED: GOLYTELY PO ONE (18:00)
--- NOTE | 2016-04-04 18:05 | Anesthesia Consultation ---
Anesthesia Consult and Med Hx Date of service: 04/05/16 - Airway Anesthetic Teeth Evaluation: Good ROM Head & Neck: Adequate Mental/Hyoid Distance: Adequate Mallampati Class: Class II Intubation Access Assessment: Probably Good - Pulmonary Exam CTA: Yes - Cardiac Exam Cardiac Exam: RRR - Pre-Operative Health Status ASA Pre-Surgery Classification: ASA3 Proposed Anesthetic Plan: MAC - Pulmonary Hx Smoking: Yes (8-9 cigs/day) Hx Asthma: No COPD: No Hx Pneumonia: No - Cardiovascular System Hx Hypertension: No - Central Nervous System Hx Seizures: No CVA: No Hx Psychiatric Problems: No - Endocrine Hx End Stage Renal Disease: No Hx Cirrhosis: Yes (HEP C) Hx Non-Insulin Dependent Diabetes: Yes - Hematic Hx Anemia: Yes Hx Sickle Cell Disease: No - Other Systems Hx Alcohol Use: Yes Hx Cancer: No
--- NOTE | 2016-04-04 18:11 | Progress Note ---
Assessment and Plan Assessment and plan: -- Anemia likely secondary to acute on chronic blood loss. Heme-positive stool , received 2 units PRBC transfusion Hemoglobin mild improvement GI evaluation noted and appreciated Possible endoscopy tomorrow --Chronic GI bleeding, extensively evaluated in the past Advised capsule endoscopy, patient did not follow up with the GI -- Hepatitis C. continue current management -- Presyncope. Due to symptomatic anemia -- DVT prophylaxis. No pharmacologic anticoagulation, use SCDs . Patient full CODE STATUS Follow endoscopy if negative and patient stable can be discharged home tomorrow Plan of care discussed with the patient, GI his nurse and the case management History Interval history: Patient seen and evaluated medical records reviewed No new events reported by the nursing staff Patient feels better, received 2 units of PRBC GI evaluation noted, possible endoscopy tomorrow Patient denies nausea vomiting Denies diarrhea or abdominal pain Vital signs stable Hospitalist Physical - Constitutional Vitals: Temp Pulse Resp BP Pulse Ox 98.5 F 88 18 121/69 98 04/04/16 16:00 04/04/16 16:00 04/04/16 16:00 04/04/16 16:00 04/04/16 16:00 General appearance: Present: no acute distress, well-nourished - EENT Eyes: Present: PERRL, EOM intact - Neck Neck: Present: supple, normal ROM - Respiratory Respiratory effort: normal Respiratory: bilateral: diminished, negative: rales, rhonchi, wheezing - Cardiovascular Rhythm: regular Heart Sounds: Present: S1 & S2 - Extremities Extremities: no ischemia, pulses intact, pulses symmetrical Peripheral Pulses: within normal limits - Abdominal General gastrointestinal: soft, non-tender, non-distended, normal bowel sounds - Integumentary Integumentary: Present: clear, warm - Psychiatric Psychiatric: appropriate mood/affect, cooperative - Neurologic Neurologic: CNII-XII intact, moves all extremities Results - Labs CBC & Chem 7: 04/04/16 07:44 04/04/16 07:44 Labs: Laboratory Last Values WBC 5.6 K/mm3 (4.5-11.0) 04/04/16 07:44 RBC 3.96 M/mm3 (3.65-5.03) 04/04/16 07:44 Hgb 7.8 gm/dl (11.8-15.2) L 04/04/16 07:44 Hct 26.4 % (35.5-45.6) L 04/04/16 07:44 MCV 67 fl (84-94) L 04/04/16 07:44 MCH 20 pg (28-32) L 04/04/16 07:44 MCHC 30 % (32-34) L 04/04/16 07:44 RDW 26.9 % (13.2-15.2) H 04/04/16 07:44 Plt Count 461 K/mm3 (140-440) H 04/04/16 07:44 Lymph % (Auto) 19.9 % (13.4-35.0) 04/01/16 20:44 Wirt % (Auto) 8.6 % (0.0-7.3) H 04/01/16 20:44 Eos % (Auto) 0.6 % (0.0-4.3) 04/01/16 20:44 Baso % (Auto) 1.5 % (0.0-1.8) 04/01/16 20:44 Lymph # 0.9 K/mm3 (1.2-5.4) L 04/01/16 20:44 Wirt # 0.4 K/mm3 (0.0-0.8) 04/01/16 20:44 Eos # 0.0 K/mm3 (0.0-0.4) 04/01/16 20:44 Baso # 0.1 K/mm3 (0.0-0.1) 04/01/16 20:44 Add Manual Diff Complete 04/04/16 07:44 Total Counted 100 04/04/16 07:44 Seg Neutrophils % 69.4 % (40.0-70.0) 04/01/16 20:44 Seg Neuts % (Manual) 91.0 % (40.0-70.0) H 04/04/16 07:44 Band Neutrophils % 0 % 04/04/16 07:44 Lymphocytes % (Manual) 4.0 % (13.4-35.0) L 04/04/16 07:44 Reactive Lymphs % (Man) 0 % 04/04/16 07:44 Monocytes % (Manual) 4.0 % (0.0-7.3) 04/04/16 07:44 Eosinophils % (Manual) 1.0 % (0.0-4.3) 04/04/16 07:44 Basophils % (Manual) 0 % (0.0-1.8) 04/04/16 07:44 Metamyelocytes % 0 % 04/04/16 07:44 Myelocytes % 0 % 04/04/16 07:44 Promyelocytes % 0 % 04/04/16 07:44 Blast Cells % 0 % 04/04/16 07:44 Nucleated RBC % Not Reportable 04/04/16 07:44 Seg Neutrophils # 3.3 K/mm3 (1.8-7.7) 04/01/16 20:44 Seg Neutrophils # Man 5.1 K/mm3 (1.8-7.7) 04/04/16 07:44 Band Neutrophils # 0.0 K/mm3 04/04/16 07:44 Lymphocytes # (Manual) 0.2 K/mm3 (1.2-5.4) L 04/04/16 07:44 Abs React Lymphs (Man) 0.0 K/mm3 04/04/16 07:44 Monocytes # (Manual) 0.2 K/mm3 (0.0-0.8) 04/04/16 07:44 Eosinophils # (Manual) 0.1 K/mm3 (0.0-0.4) 04/04/16 07:44 Basophils # (Manual) 0.0 K/mm3 (0.0-0.1) 04/04/16 07:44 Metamyelocytes # 0.0 K/mm3 04/04/16 07:44 Myelocytes # 0.0 K/mm3 04/04/16 07:44 Promyelocytes # 0.0 K/mm3 04/04/16 07:44 Blast Cells # 0.0 K/mm3 04/04/16 07:44 WBC Morphology Not Reportable 04/04/16 07:44 Hypersegmented Neuts Not Reportable 04/04/16 07:44 Hyposegmented Neuts Not Reportable 04/04/16 07:44 Hypogranular Neuts Not Reportable 04/04/16 07:44 Smudge Cells Not Reportable 04/04/16 07:44 Toxic Granulation Not Reportable 04/04/16 07:44 Toxic Vacuolation Not Reportable 04/04/16 07:44 Dohle Bodies Not Reportable 04/04/16 07:44 Pelger-Huet Anomaly Not Reportable 04/04/16 07:44 Katia Rods Not Reportable 04/04/16 07:44 Platelet Estimate Appears normal 04/04/16 07:44 Clumped Platelets Not Reportable 04/04/16 07:44 Plt Clumps, EDTA Not Reportable 04/04/16 07:44 Large Platelets Not Reportable 04/04/16 07:44 Giant Platelets Not Reportable 04/04/16 07:44 Platelet Satelliting Not Reportable 04/04/16 07:44 Plt Morphology Comment Not Reportable 04/04/16 07:44 RBC Morphology Not Reportable 04/04/16 07:44 Dimorphic RBCs Yes 04/04/16 07:44 Polychromasia 1+ 04/04/16 07:44 Hypochromasia 2+ 04/04/16 07:44 Poikilocytosis Not Reportable 04/04/16 07:44 Anisocytosis 3+ 04/04/16 07:44 Microcytosis 1+ 04/04/16 07:44 Macrocytosis Not Reportable 04/04/16 07:44 Spherocytes Not Reportable 04/04/16 07:44 Pappenheimer Bodies Not Reportable 04/04/16 07:44 Sickle Cells Not Reportable 04/04/16 07:44 Target Cells Not Reportable 04/04/16 07:44 Tear Drop Cells Few 04/04/16 07:44 Ovalocytes Few 04/04/16 07:44 Helmet Cells Not Reportable 04/04/16 07:44 [place] Bodies Not Reportable 04/04/16 07:44 [place] Rings Not Reportable 04/04/16 07:44 [place] Cells Not Reportable 04/04/16 07:44 Bite Cells Not Reportable 04/04/16 07:44 Crenated Cell Not Reportable 04/04/16 07:44 Elliptocytes 1+ 04/04/16 07:44 Acanthocytes (Spur) Not Reportable 04/04/16 07:44 Rouleaux Not Reportable 04/04/16 07:44 Hemoglobin C Crystals Not Reportable 04/04/16 07:44 Schistocytes Not Reportable 04/04/16 07:44 Malaria parasites Not Reportable 04/04/16 07:44 Jl Bodies Not Reportable 04/04/16 07:44 Hem Pathologist Commnt No 04/04/16 07:44 PT 13.6 Sec. (12.2-14.9) 04/04/16 09:47 INR 1.05 (0.87-1.13) 04/04/16 09:47 Sodium 135 mmol/L (137-145) L 04/04/16 07:44 Potassium 4.2 mmol/L (3.6-5.0) 04/04/16 07:44 Chloride 97.9 mmol/L (98-107) L 04/04/16 07:44 Carbon Dioxide 26 mmol/L (22-30) 04/04/16 07:44 Anion Gap 15 mmol/L 04/04/16 07:44 BUN 9 mg/dL (9-20) 04/04/16 07:44 Creatinine 0.6 mg/dL (0.8-1.5) L 04/04/16 07:44 Estimated GFR > 60 ml/min 04/04/16 07:44 BUN/Creatinine Ratio 15.00 % 04/04/16 07:44 Glucose 241 mg/dL (75-100) H 04/04/16 07:44 POC Glucose 273 (70-105) H 04/01/16 20:15 Calcium 8.7 mg/dL (8.4-10.2) 04/04/16 07:44 Iron 12 ug/dL (49-181) L 04/01/16 22:47 TIBC 524 mcg/dL (250-450) H 04/01/16 22:47 Total Bilirubin 0.5 mg/dL (0.1-1.2) 04/01/16 22:47 Direct Bilirubin 0.2 mg/dL (0-0.2) 04/01/16 22:47 Indirect Bilirubin 0.3 mg/dL 04/01/16 22:47 AST 17 units/L (5-40) 04/01/16 22:47 ALT 10 units/L (7-56) 04/01/16 22:47 Alkaline Phosphatase 89 units/L (35-129) 04/01/16 22:47 Lactate Dehydrogenase 118 units/L (91-180) 04/01/16 22:47 Troponin T < 0.010 ng/mL (0.00-0.029) 04/02/16 01:27 Total Protein 7.1 g/dL (6.3-8.2) 04/01/16 22:47 Albumin 4.0 g/dL (3.9-5) 04/01/16 22:47 Albumin/Globulin Ratio 1.3 % 04/01/16 22:47 Vitamin B12 659.9 pg/mL (211-911) 04/01/16 22:47 Folate 17.00 ng/mL (7.3-26.0) 04/01/16 22:47 TSH 1.220 mlU/mL (0.270-4.200) 04/01/16 20:51 Blood Type A POSITIVE 04/01/16 22:47 Antibody Screen Negative 04/01/16 22:47 Crossmatch See Detail 04/01/16 22:47
[2016-04-05] MEDS ORDERED: WATER FOR IRRIG STERILE IR ONE ×2 (09:45→12:55)
[2016-04-05] MEDS ORDERED: DIPRIVAN 10 MG/ML IV ONE ×3 (09:56→11:13)
[2016-04-05] MEDS: NACL 0.9% 1000 ML 1,000 ML IV SCH ×2 (10:00→14:59)
--- NOTE | 2016-04-05 11:44 | Operative Report ---
Operative Report Operative Report: Date of procedure: 04/05/2016 Procedure: Esophagogastroduodenoscopy Preprocedure diagnosis: Iron deficiency anemia consistent with chronic blood loss Post procedure diagnosis: Notable small AVMs of the duodenum Endoscopist: Dr. Richards Anesthesia: Monitored anesthesia care per anesthesia department Medications: Propofol per anesthesia Estimated blood loss: [0] After careful discussion of the nature and purpose of the procedure as well as details the technique risks benefits and alternatives consent was obtained. The patient was placed in the left lateral decubitus position and medicated per anesthesia. The tip of the [employer] EQ 570 video scope was passed per orum under direct vision into the esophagus and advanced into the stomach and descending duodenum. The descending duodenum revealed multiple small AVMs 2-4 mm in size, approximately 4 or 5 lesions overall. The duodenal bulb and pylorus were symmetrical and normal. The scope was withdrawn into the stomach and the stomach then gently insufflated with air. The antrum was normal. The stomach was further insufflated and the scope was then retroflexed and partially withdrawn. The cardia, fundus, and body of the stomach were within normal limits and easily distensible.The scope was then withdrawn in the forward position. The esophagogastric junction was at 40 cm. The esophageal body was normal throughout. The procedure was was well tolerated and the patient was observed in recovery. 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 Consideration of ablation in the future if the patient's anemia does not correct with iron therapy and if there are no colonic lesions.] Electronically signed: Iker Richards MD
--- NOTE | 2016-04-05 11:49 | Operative Report ---
Operative Report Operative Report: Date of procedure: 04/05/2016 Preprocedure diagnosis: Iron deficiency anemia consistent with chronic GI blood loss Post procedure diagnosis: Multiple AVMs of the right colon, poor prep Procedure: Colonoscopy to the cecum Endoscopist: Dr. Richards Anesthesia: Monitored anesthesia care per anesthesia department Estimated blood loss: 0 Medications: Monitored anesthesia care. See separate report by anesthesia for details. After careful discussion of the nature and purpose of the procedure as well as details of the technique risks benefits and alternatives the patient gave consent. Please see recent history and physical from the office. The patient was placed in the left lateral decubitus position and medicated per anesthesia. A rectal exam was performed sphincter tone was normal there were no masses palpable. The [employer] 570 scope was passed transanally and advanced under continuous direct vision without difficulty to the cecum. The colon was poor overall with her being thick liquid stool and formed stool scattered throughout the colon. The cecum was normal. The ascending colon feels scattered AVMs approximately 7- 10 mm in size. The transverse colon feels scattered AVMs as well. The descending colon and sigmoid colon were normal within the limits of a poor prep. The rectum was normal on forward although the vault was too small for successful retroflexion. A good coned down view of the rectum was obtained. The procedure was well-tolerated overall and the patient was observed in recovery. Conclusions: Multiple AVMs in the right colon and a few in the transverse. Poor colonic preparation with insensitivity for small or flat lesions. The prep was also insufficient for safe use of cautery Plan: Iron therapy. Consider repeating colonoscopy as an outpatient with good preparation for ablation of AVMs to reduce chronic blood loss. Stable GI poole to advance diet and send home today. Office follow-up is requested. Signed electronically: Iker Richards M.D.
[2016-04-05] MEDS: PROTONIX PO SCH (14:59)
[2016-04-05 15:10] VITALS: BP 141/71
[2016-04-05] MEDS ORDERED: NOVOLOG SUB-Q ONE (16:32)
--- NOTE | 2016-04-05 16:37 | Discharge Summary ---
Providers - Providers Date of Admission: 04/01/16 22:31 Date of discharge: 04/05/16 Attending physician: WOODROW BUTLER 04/03/16 16:17 Consult to Physician [CONS] Routine Consulting Provider: PENELOPE DIAS Reason For Exam: severe anemia/heme positive stool Place consult to:: Notified:: [facility] Phone number called:: [phone] Was contact made?: Yes If yes, spoke with:: [facility] Time called:: 17:59 Primary care physician: DRY JANITOR Hospitalization Reason for admission: near syncopal episode Condition: Stable Pertinent studies: Colonoscopy; multiple AV malformation could not be cauterized secondary to poor preparation Repeat colonoscopy with good preparation as outpatient 2 units PRBC transfusion Hospital course: 60-year-old -Wel[place] male patient was admitted through emergency room with near syncope episode, initially evaluated noted to have severe anemia, hemoglobin of 6.8, received multiple units of PRBC Evaluated by GI, underwent colonoscopy which revealed multiple AV malformations Patient did not have proper preparation of the bowel and . Could not be cauterized GI recommend iron supplements, discharge and follow-up with them in the office in 1-2 weeks for further evaluation and management Today he is comfortable in bed alert awake oriented 3 Denies any nausea vomiting or abdominal pain [id number] evaluation and physical examination done by me prior to discharge is unremarkable as detailed below Final diagnosis: -- Anemia likely secondary to acute on chronic blood loss. Status post PRBC blood transfusion --multiple AV malformations on colonoscopy --Iron deficiency anemia --Chronic GI bleeding, -- Hepatitis C. stable -- Presyncope. Due to symptomatic anemia --Type 2 diabetes mellitus Disposition: DISCHARGED TO HOME OR SELFCARE Time spent for discharge: 32 min Core Measure Documentation - Palliative Care Palliative Care/ Comfort Measures: Not Applicable - Core Measures Any of the following diagnoses?: none Exam - Constitutional Vitals: Temp Pulse Resp BP Pulse Ox 97.8 F 76 16 141/71 97 04/05/16 15:10 04/05/16 15:10 04/05/16 15:10 04/05/16 15:10 04/05/16 15:10 General appearance: Present: no acute distress, well-nourished - EENT Eyes: Present: PERRL, EOM intact - Neck Neck: Present: supple, normal ROM - Respiratory Respiratory effort: normal Respiratory: bilateral: diminished, negative: rales, rhonchi, wheezing - Cardiovascular Rhythm: regular Heart Sounds: Present: S1 & S2 - Extremities Extremities: no ischemia, pulses intact, pulses symmetrical Peripheral Pulses: within normal limits - Abdominal General gastrointestinal: Present: soft, non-tender, non-distended, normal bowel sounds - Integumentary Integumentary: Present: clear, warm - Musculoskeletal Musculoskeletal: strength equal bilaterally, generalized weakness - Psychiatric Psychiatric: appropriate mood/affect, cooperative - Neurologic Neurologic: CNII-XII intact, moves all extremities Plan Activity: no restrictions Diet: diabetic Follow up with: PRIMARY CAREMD [Primary Care Provider] - 3-5 Days PENELOPE DIAS MD [Staff Physician] - 7 Days Prescriptions: Ferrous Sulfate [Feosol 325 MG tab] 325 mg PO BID #60 tablet Pantoprazole [Protonix TAB] 40 mg PO BID #60 tablet
== END 2016-04-05 19:45 | disposition home or self-care (01) | DRG 812 ==
LOC: ED 19:13 → 3A 22:31
PROVIDERS: ADMIT Hospitalist; ATTEND Internal Medicine
PROC: 30233N1 Transfusion of Nonautologous Red Blood Cells into Peripheral Vein, Percutaneous Approach (ICD-10-PCS; principal; 2016-04-01)
PROC: 0DJ08ZZ Inspection of Upper Intestinal Tract, Via Natural or Artificial Opening Endoscopic (ICD-10-PCS; 2016-04-05)
PROC: 0DJD8ZZ Inspection of Lower Intestinal Tract, Via Natural or Artificial Opening Endoscopic (ICD-10-PCS; 2016-04-05)
DX: D50.0 Iron deficiency anemia secondary to blood loss (chronic) (principal); K92.2 Gastrointestinal hemorrhage, unspecified; E11.9 Type 2 diabetes mellitus without complications; B19.20 Unspecified viral hepatitis C without hepatic coma; F17.210 Nicotine dependence, cigarettes, uncomplicated; Q27.33 Arteriovenous malformation of digestive system vessel; Z86.19 Personal history of other infectious and parasitic diseases
CPT/HCPCS: 36415; 80048; 80074; 82270; 82607; 82747; 82962; 83540; 83550; 83615; 84443; 84484; 85007; 85025; 85027; 85610; 86850; 86900; 86901; 86920; 90686; 90732; 93005; 93010; 99285; C9113; J1815; J2704; J7030; J7040; P9016

== ENCOUNTER 2017-03-22 00:03 | Inpatient (IN) | payer OTHER ==
[2017-03-22 01:00] LABS: Mean Corpuscular HGB Conc 27 % (32-34); Platelet Count 608 K/mm3 (140-440)
[2017-03-22 01:13] LABS: BUN/Creatinine Ratio 18; Blood Urea Nitrogen 16 mg/dL (9-20); Hemolysis Index 1
[2017-03-22 01:17] LABS: Mean Corpuscular Hemoglobin 17 pg (28-32); Mean Corpuscular Volume 63 fl (84-94); Red Cell Distribution Width 24.1 % (13.2-15.2)
[2017-03-22 01:19] LABS: Hematocrit 18.9 % (35.5-45.6)
[2017-03-22] MEDS ORDERED: NACL 0.9% 500 ML 500 ML IV ONE ×2 (02:18→09:25)
[2017-03-22] MEDS ORDERED: PROTONIX IV ONE (02:32)
--- NOTE | 2017-03-22 02:37 | Emergency Department Report ---
HPI - General Chief Complaint: Dizziness Time Seen by Provider: 03/22/17 02:18 - HPI HPI: Room 3 The patient is 59-year-old male presenting with chief complaint of dizziness. The patient states one week he gets dizzy whenever he stands up and attempts to walk. Patient denies nausea vomiting or diarrhea. Patient denies bright red blood per rectum or melena. Patient states she had a similar episode in April 2016 which required a blood transfusion. Patient states he was never told his source of bleeding Location: [See above] Duration: One week Quality: Dizziness Severity: Moderate Modifying factors: [see above] Context: [see above] Mode of transportation: [not driving] ED Past Medical Hx - Past Medical History Hx Diabetes: Yes - Surgical History Past Surgical History?: No - Family History Family history: no significant - Social History Smoking Status: Current Some Day Smoker (1/3 pack per day) Substance Use Type: None (denies illicit drug use), Alcohol (states he stopped drinking alcohol 25 years ago) - Medications Home Medications: Home Medications Medication Instructions Recorded Confirmed Last Taken Type metFORMIN 500 mg PO DAILY 04/01/16 04/01/16 Unknown History Ferrous Sulfate [Feosol 325 MG tab] 325 mg PO BID #60 tablet 04/05/16 Unknown Rx Pantoprazole [Protonix TAB] 40 mg PO BID #60 tablet 04/05/16 Unknown Rx ED Review of Systems ROS: Stated complaint: DIZZINESS Other details as noted in HPI Constitutional: malaise, other (dizziness) Gastrointestinal: denies: abdominal pain, nausea, diarrhea, hematemesis, melena , hematochezia Physical Exam - Physical Exam Vital Signs: Vital Signs 03/22/17 03/22/17 03/22/17 00:16 00:24 01:09 Temperature 98.4 F Pulse Rate 103 H 94 H Respiratory 16 16 Rate Blood Pressure 95/49 Blood Pressure 75/42 107/63 [Right] O2 Sat by Pulse 100 92 Oximetry 03/22/17 02:14 Temperature Pulse Rate 91 H Respiratory 12 Rate Blood Pressure 115/70 Blood Pressure [Right] O2 Sat by Pulse Oximetry Physical Exam: GENERAL: The patient is well-developed well-nourished male lying on stretcher not appearing to be in acute distress. [] HEENT: Normocephalic. Atraumatic. Extraocular motions are intact. Patient has moist mucous membranes. NECK: Supple. Trachea midline CHEST/LUNGS: Clear to auscultation. There is no respiratory distress noted. HEART/CARDIOVASCULAR: Regular. There is no tachycardia. There is no gallop rub or murmur. ABDOMEN: Abdomen is soft, nontender. Patient has normal bowel sounds. There is no abdominal distention. SKIN: There is no rash. There is no edema. There is no diaphoresis. NEURO: The patient is awake, alert, and oriented. The patient is cooperative. The patient has normal speech MUSCULOSKELETAL: There is no evidence of acute injury. RECTAL: Guaiac positive brown stool ED Course Vital Signs 03/22/17 03/22/17 03/22/17 00:16 00:24 01:09 Temperature 98.4 F Pulse Rate 103 H 94 H Respiratory 16 16 Rate Blood Pressure 95/49 Blood Pressure 75/42 107/63 [Right] O2 Sat by Pulse 100 92 Oximetry 03/22/17 02:14 Temperature Pulse Rate 91 H Respiratory 12 Rate Blood Pressure 115/70 Blood Pressure [Right] O2 Sat by Pulse Oximetry ED Medical Decision Making - Lab Data Result diagrams: 03/22/17 00:43 03/22/17 00:43 Laboratory Tests 03/22/17 03/22/17 00:43 00:43 WBC 3.8 L RBC 3.00 L Hgb 5.0 L* Hct 18.9 L* MCV 63 L MCH 17 L MCHC 27 L RDW 24.1 H Plt Count 608 H Sodium 136 L Potassium 4.1 Chloride 94.4 L Carbon Dioxide 24 Anion Gap 22 BUN 16 Creatinine 0.9 Estimated GFR > 60 BUN/Creatinine Ratio 18 Glucose 86 Calcium 9.0 - EKG Data -: EKG Interpreted by [place] EKG shows normal: sinus rhythm Rate: normal - EKG Data When compared to previous EKG there are: previous EKG unavailable Interpretation: nonspecific ST-T wave yonis (T-wave inversion in lead aVL) - Differential Diagnosis GI bleed Critical care attestation.: If time is entered above; I have spent that time in minutes in the direct care of this critically ill patient, excluding procedure time. ED Disposition Clinical Impression: Symptomatic anemia, GI bleed Disposition: OP ADMIT IP TO THIS HOSP Is pt being admited?: Yes Does the pt Need Aspirin: No Condition: Serious Referrals: CARMEN FUENTES MD [Primary Care Provider] - 3-5 Days Time of Disposition: 02:42 (hospitalist paged (Dr. Back))
--- NOTE | 2017-03-22 02:49 | History and Physical Report ---
History of Present Illness Date of examination: 03/22/17 Chief complaint: Dizziness History of present illness: 61-year-old male with past medical history is significant for diabetes mellitus 2, anemia presented to the emergency department complaining of dizziness for the last 2 days. Patient said he is not able to stand because of the dizziness. He has associated shortness of breath for the last 2 days. Patient didn't notice any change in the color of the stool. Patient has not been taking any NSAIDs. Patient was admitted previously for anemia and workup was done. No other complaints. REVIEW OF SYSTEMS: GENERAL: no weight change, + fatigue, no fever HEAD: no head ache EYES: no blurry vision, no acute visual loss EARS: no hearing loss, no discharge, no earache NOSE: no stuffiness, no sneezing, no discharge MOUTH, THROAT AND NECK: no bleeding gums, no sore throat, no swollen neck CARDIAC: no palpitations, + dyspnea on exertion, no orthopnea, no PND, no edema , no chest pain RESPIRATORY: + shortness of breath, no wheeze, + cough, no sputum, no hemoptysis , no asthma GI: no decreased appetite, no nausea, no vomiting, no dysphagia, no diarrhea, no constipation, no abdominal pain URINARY: no change in frequency, no urgency, no polyuria, no hematuria, no incontinence MUSCULOSKELETAL: no muscle weakness, no pain, no joint stiffness NEUROLOGIC: no loss of sensation/numbness, no tingling, no tremors, no weakness/ paralysis, + Dizziness HEMATOLOGIC: + anemia, no easy bruising SKIN: no rashes ENDOCRINE: no heat/cold intolerance, no polyuria, no polydipsia, no thyroid problems, + diabetes PSYCHIATRIC: no anxiety, no depression, no suicidal ideations Past History Past Medical History: anemia, diabetes Past Surgical History: No surgical history Social history: smoking (5-6 cigarettes a day), full code. denies: alcohol abuse, prescription drug abuse, IV drug use Family history: no significant family history Medications and Allergies Allergies Allergy/AdvReac Type Severity Reaction Status Date / Time No Known Allergies Allergy Verified 04/09/15 13:02 Home Medications Medication Instructions Recorded Confirmed Last Taken Type metFORMIN 500 mg PO DAILY 04/01/16 04/01/16 Unknown History Ferrous Sulfate [Feosol 325 MG tab] 325 mg PO BID #60 tablet 04/05/16 Unknown Rx Pantoprazole [Protonix TAB] 40 mg PO BID #60 tablet 04/05/16 Unknown Rx Exam - Physical Exam Narrative exam: Not in cardiopulmonary distress. The patient appeared well nourished and normally developed. Vital signs as documented. Head exam is unremarkable. No scleral icterus . Neck is without jugular venous distension, thyromegaly, or carotid bruits. Lungs are clear to auscultation. Cardiac exam reveals regular rate and Rhythm. First and second heart sounds normal. No murmurs, rubs or gallops. Abdominal exam reveals normal bowel sounds, no masses, no organomegaly and no aortic enlargement. Extremities are nonedematous and both femoral and pedal pulses are normal. DIRECTOR OF GRADUATE ADMISSIONS: Alert and oriented 3. No focal weakness. - Constitutional Vitals: Temp Pulse Resp BP Pulse Ox 98.4 F 91 H 12 115/70 92 03/22/17 00:16 03/22/17 02:14 03/22/17 02:14 03/22/17 02:14 03/22/17 01:09 Results - Labs CBC & Chem 7: 03/22/17 00:43 03/22/17 00:43 Labs: Laboratory Last Values WBC 3.8 K/mm3 (4.5-11.0) L 03/22/17 00:43 RBC 3.00 M/mm3 (3.65-5.03) L 03/22/17 00:43 Hgb 5.0 gm/dl (11.8-15.2) L* 03/22/17 00:43 Hct 18.9 % (35.5-45.6) L* 03/22/17 00:43 MCV 63 fl (84-94) L 03/22/17 00:43 MCH 17 pg (28-32) L 03/22/17 00:43 MCHC 27 % (32-34) L 03/22/17 00:43 RDW 24.1 % (13.2-15.2) H 03/22/17 00:43 Plt Count 608 K/mm3 (140-440) H 03/22/17 00:43 Sodium 136 mmol/L (137-145) L 03/22/17 00:43 Potassium 4.1 mmol/L (3.6-5.0) 03/22/17 00:43 Chloride 94.4 mmol/L (98-107) L 03/22/17 00:43 Carbon Dioxide 24 mmol/L (22-30) 03/22/17 00:43 Anion Gap 22 mmol/L 03/22/17 00:43 BUN 16 mg/dL (9-20) 03/22/17 00:43 Creatinine 0.9 mg/dL (0.8-1.5) 03/22/17 00:43 Estimated GFR > 60 ml/min 03/22/17 00:43 BUN/Creatinine Ratio 18 % 03/22/17 00:43 Glucose 86 mg/dL (75-100) 03/22/17 00:43 Calcium 9.0 mg/dL (8.4-10.2) 03/22/17 00:43 Assessment and Plan Assessment and plan: Symptomatic anemia, ? GI bleed - FOBT negative - We'll transfuse 2 units of blood, check H&H after that - On IV pantoprazole, GI consulted Diabetes mellitus - His blood sugar this morning was 86, patient said he has not been taking any metformin - The patient may not need antidiabetic medications DVT prophylaxis - SCDs because of severe anemia Disposition - Admit to [facility] floor Advance Directives: Yes VTE prophylaxis?: Mechanical Contraindication Mechanical VTE Prophylaxis: Contraindicated Reason for no VTE Prophylaxis: Medical contraindication Plan of care discussed with patient/family: Yes
[2017-03-22 03:57] LABS: Band Neutrophils # (Manual) 0.2 K/mm3; Eosinophils % (Manual) 0 % (0.0-4.3); Total Cells Counted 100
[2017-03-22 03:58] LABS: Anisocytosis 2+; Hypochromasia 3+; Platelet Estimate Appears Increased
[2017-03-22] MEDS ORDERED: NACL 0.9% 500 ML 500 ML ONE ×2 (04:32→13:10)
--- NOTE | 2017-03-22 09:26 | Progress Note ---
Assessment and Plan Assessment and plan: Symptomatic anemia, ? GI bleed - FOBT negative - We'll transfuse 2 units of blood, check H&H after that - On IV pantoprazole, GI consulted Diabetes mellitus - His blood sugar this morning was 86, patient said he has not been taking any metformin - The patient may not need antidiabetic medications DVT prophylaxis - SCDs because of severe anemia History Interval history: No new issues overnight. Hospitalist Physical - Constitutional Vitals: Temp Pulse Resp BP Pulse Ox 98.4 F 76 17 117/66 100 03/22/17 00:16 03/22/17 06:46 03/22/17 06:46 03/22/17 06:46 03/22/17 06:46 General appearance: Present: no acute distress, well-nourished - EENT Eyes: Present: PERRL, EOM intact ENT: hearing intact, clear oral mucosa, dentition normal - Neck Neck: Present: supple, normal ROM - Respiratory Respiratory effort: normal Respiratory: bilateral: CTA - Cardiovascular Rhythm: regular Heart Sounds: Present: S1 & S2. Absent: gallop, rub - Extremities Extremities: no ischemia, No edema, Full ROM - Abdominal General gastrointestinal: soft, non-tender, non-distended, normal bowel sounds - Integumentary Integumentary: Present: clear, warm, dry - Neurologic Neurologic: CNII-XII intact, moves all extremities Results - Labs CBC & Chem 7: 03/22/17 00:43 03/22/17 00:43 Labs: Laboratory Last Values WBC 3.8 K/mm3 (4.5-11.0) L 03/22/17 00:43 RBC 3.00 M/mm3 (3.65-5.03) L 03/22/17 00:43 Hgb 5.0 gm/dl (11.8-15.2) L* 03/22/17 00:43 Hct 18.9 % (35.5-45.6) L* 03/22/17 00:43 MCV 63 fl (84-94) L 03/22/17 00:43 MCH 17 pg (28-32) L 03/22/17 00:43 MCHC 27 % (32-34) L 03/22/17 00:43 RDW 24.1 % (13.2-15.2) H 03/22/17 00:43 Plt Count 608 K/mm3 (140-440) H 03/22/17 00:43 Add Manual Diff Complete 03/22/17 00:43 Total Counted 100 03/22/17 00:43 Seg Neuts % (Manual) 75.0 % (40.0-70.0) H 03/22/17 00:43 Band Neutrophils % 4.0 % 03/22/17 00:43 Lymphocytes % (Manual) 12.0 % (13.4-35.0) L 03/22/17 00:43 Reactive Lymphs % (Man) 3.0 % 03/22/17 00:43 Monocytes % (Manual) 5.0 % (0.0-7.3) 03/22/17 00:43 Eosinophils % (Manual) 0 % (0.0-4.3) 03/22/17 00:43 Basophils % (Manual) 1.0 % (0.0-1.8) 03/22/17 00:43 Metamyelocytes % 0 % 03/22/17 00:43 Myelocytes % 0 % 03/22/17 00:43 Promyelocytes % 0 % 03/22/17 00:43 Blast Cells % 0 % 03/22/17 00:43 Nucleated RBC % 1.0 % (0.0-0.9) H 03/22/17 00:43 Seg Neutrophils # Man 2.9 K/mm3 (1.8-7.7) 03/22/17 00:43 Band Neutrophils # 0.2 K/mm3 03/22/17 00:43 Lymphocytes # (Manual) 0.5 K/mm3 (1.2-5.4) L 03/22/17 00:43 Abs React Lymphs (Man) 0.1 K/mm3 03/22/17 00:43 Monocytes # (Manual) 0.2 K/mm3 (0.0-0.8) 03/22/17 00:43 Eosinophils # (Manual) 0.0 K/mm3 (0.0-0.4) 03/22/17 00:43 Basophils # (Manual) 0.0 K/mm3 (0.0-0.1) 03/22/17 00:43 Metamyelocytes # 0.0 K/mm3 03/22/17 00:43 Myelocytes # 0.0 K/mm3 03/22/17 00:43 Promyelocytes # 0.0 K/mm3 03/22/17 00:43 Blast Cells # 0.0 K/mm3 03/22/17 00:43 WBC Morphology Not Reportable 03/22/17 00:43 Hypersegmented Neuts Not Reportable 03/22/17 00:43 Hyposegmented Neuts Not Reportable 03/22/17 00:43 Hypogranular Neuts Not Reportable 03/22/17 00:43 Smudge Cells Not Reportable 03/22/17 00:43 Toxic Granulation Not Reportable 03/22/17 00:43 Toxic Vacuolation Not Reportable 03/22/17 00:43 Dohle Bodies Not Reportable 03/22/17 00:43 Pelger-Huet Anomaly Not Reportable 03/22/17 00:43 Katia Rods Not Reportable 03/22/17 00:43 Platelet Estimate Appears increased 03/22/17 00:43 Clumped Platelets Not Reportable 03/22/17 00:43 Plt Clumps, EDTA Not Reportable 03/22/17 00:43 Large Platelets Not Reportable 03/22/17 00:43 Giant Platelets Not Reportable 03/22/17 00:43 Platelet Satelliting Not Reportable 03/22/17 00:43 Plt Morphology Comment Not Reportable 03/22/17 00:43 RBC Morphology Not Reportable 03/22/17 00:43 Dimorphic RBCs Not Reportable 03/22/17 00:43 Polychromasia Not Reportable 03/22/17 00:43 Hypochromasia 3+ 03/22/17 00:43 Poikilocytosis Not Reportable 03/22/17 00:43 Anisocytosis 2+ 03/22/17 00:43 Microcytosis 2+ 03/22/17 00:43 Macrocytosis Not Reportable 03/22/17 00:43 Spherocytes Not Reportable 03/22/17 00:43 Pappenheimer Bodies Not Reportable 03/22/17 00:43 Sickle Cells Not Reportable 03/22/17 00:43 Target Cells Not Reportable 03/22/17 00:43 Tear Drop Cells Not Reportable 03/22/17 00:43 Ovalocytes Not Reportable 03/22/17 00:43 Helmet Cells Not Reportable 03/22/17 00:43 Suarez-[place] Bodies Not Reportable 03/22/17 00:43 [place] Rings Not Reportable 03/22/17 00:43 Luke Cells Not Reportable 03/22/17 00:43 Bite Cells Not Reportable 03/22/17 00:43 Crenated Cell Not Reportable 03/22/17 00:43 Elliptocytes Not Reportable 03/22/17 00:43 Acanthocytes (Spur) Not Reportable 03/22/17 00:43 Rouleaux Not Reportable 03/22/17 00:43 Hemoglobin C Crystals Not Reportable 03/22/17 00:43 Schistocytes Not Reportable 03/22/17 00:43 Malaria parasites Not Reportable 03/22/17 00:43 Jl Bodies Not Reportable 03/22/17 00:43 Hem Pathologist Commnt No 03/22/17 00:43 Sodium 136 mmol/L (137-145) L 03/22/17 00:43 Potassium 4.1 mmol/L (3.6-5.0) 03/22/17 00:43 Chloride 94.4 mmol/L (98-107) L 03/22/17 00:43 Carbon Dioxide 24 mmol/L (22-30) 03/22/17 00:43 Anion Gap 22 mmol/L 03/22/17 00:43 BUN 16 mg/dL (9-20) 03/22/17 00:43 Creatinine 0.9 mg/dL (0.8-1.5) 03/22/17 00:43 Estimated GFR > 60 ml/min 03/22/17 00:43 BUN/Creatinine Ratio 18 % 03/22/17 00:43 Glucose 86 mg/dL (75-100) 03/22/17 00:43 Calcium 9.0 mg/dL (8.4-10.2) 03/22/17 00:43 Blood Type A POSITIVE 03/22/17 01:44 Antibody Screen Negative 03/22/17 01:44 Crossmatch See Detail 03/22/17 01:44
[2017-03-22] MEDS: FEOSOL PO SCH ×2 (11:54→22:02)
[2017-03-22] MEDS: PROTONIX IV SCH ×2 (13:38→22:02)
--- NOTE | 2017-03-22 20:09 | Gastroenterology Consultation ---
History of Present Illness - Reason for Consult Consult date: 03/22/17 Iron Def Anemia Requesting physician: ESPINOZA GLASGOW - History of Present Illness The patient has been seen by us in 2016 and 2017 but has a hx of iron def for years. It was reported in the past that it was "cryptogenic" despite numerous studies in his former residence ([place]). 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 He returns to the ER for weakness and dark stools. He denies NSAIDs or other blood thinners. He has no abdominal pain, nausea, vomiting or weight loss. Of note, he has a hx of HCV "treated in the past" but no recent viral load is found. Past History Past Medical History: anemia (chronic with a hx of IV iron/transfusions and AVMs in upper/lower GI tract), diabetes Past Surgical History: No surgical history Social history: smoking (5-6 cigarettes a day), full code. denies: alcohol abuse, prescription drug abuse, IV drug use Family history: no significant family history Medications and Allergies Allergies Allergy/AdvReac Type Severity Reaction Status Date / Time No Known Allergies Allergy Verified 04/09/15 13:02 Home Medications Medication Instructions Recorded Confirmed Last Taken Type No Known Home Medications [No 03/22/17 03/22/17 Unknown History Reported Home Medications] Active Meds: Active Medications Ferrous Sulfate (Feosol) 325 mg PO BID [facility] Last Admin: 03/22/17 11:54 Dose: 325 mg Pantoprazole Sodium (Protonix) 40 mg IV BID [facility] Last Admin: 03/22/17 13:38 Dose: 40 mg I HAVE REVIEWED AND RECONCILED MEDICATIONS Review of Systems - Review of Systems All systems: negative (as noted in the HPI) Exam - Constitutional Vital Signs: Temp Pulse Resp BP Pulse Ox 99.4 F 82 16 110/61 99 03/22/17 18:49 03/22/17 18:49 03/22/17 18:49 03/22/17 18:49 03/22/17 18:49 General appearance: no acute distress - EENT Eyes: PERRL, EOM intact ENT: hearing intact, clear oral mucosa, poor dentition - Neck Neck: supple, normal ROM - Respiratory Respiratory effort: normal Respiratory: bilateral: CTA - Cardiovascular Rhythm: regular Heart Sounds: Present: S1 & S2 Extremities: no ischemia, No edema - Gastrointestinal General gastrointestinal: Present: soft, non-tender, non-distended - Integumentary Integumentary: Present: clear, warm, dry - Neurologic Neurological: alert and oriented x3 - Labs CBC & Chem 7: 03/22/17 00:43 03/22/17 00:43 Lab Results: Laboratory Results - last 24 hr 03/22/17 03/22/17 03/22/17 00:43 00:43 01:44 WBC 3.8 L RBC 3.00 L Hgb 5.0 L* Hct 18.9 L* MCV 63 L MCH 17 L MCHC 27 L RDW 24.1 H Plt Count 608 H Add Manual Diff Complete Total Counted 100 Seg Neuts % (Manual) 75.0 H Band Neutrophils % 4.0 Lymphocytes % (Manual) 12.0 L Reactive Lymphs % (Man) 3.0 Monocytes % (Manual) 5.0 Eosinophils % (Manual) 0 Basophils % (Manual) 1.0 Metamyelocytes % 0 Myelocytes % 0 Promyelocytes % 0 Blast Cells % 0 Nucleated RBC % 1.0 H Seg Neutrophils # Man 2.9 Band Neutrophils # 0.2 Lymphocytes # (Manual) 0.5 L Abs React Lymphs (Man) 0.1 Monocytes # (Manual) 0.2 Eosinophils # (Manual) 0.0 Basophils # (Manual) 0.0 Metamyelocytes # 0.0 Myelocytes # 0.0 Promyelocytes # 0.0 Blast Cells # 0.0 WBC Morphology Not Reportable Hypersegmented Neuts Not Reportable Hyposegmented Neuts Not Reportable Hypogranular Neuts Not Reportable Smudge Cells Not Reportable Toxic Granulation Not Reportable Toxic Vacuolation Not Reportable Dohle Bodies Not Reportable Pelger-Huet Anomaly Not Reportable Katia Rods Not Reportable Platelet Estimate Appears increased Clumped Platelets Not Reportable Plt Clumps, EDTA Not Reportable Large Platelets Not Reportable Giant Platelets Not Reportable Platelet Satelliting Not Reportable Plt Morphology Comment Not Reportable RBC Morphology Not Reportable Dimorphic RBCs Not Reportable Polychromasia Not Reportable Hypochromasia 3+ Poikilocytosis Not Reportable Anisocytosis 2+ Microcytosis 2+ Macrocytosis Not Reportable Spherocytes Not Reportable Pappenheimer Bodies Not Reportable Sickle Cells Not Reportable Target Cells Not Reportable Tear Drop Cells Not Reportable Ovalocytes Not Reportable Helmet Cells Not Reportable Suarez-[place] Bodies Not Reportable [place] Rings Not Reportable [place] Cells Not Reportable Bite Cells Not Reportable Crenated Cell Not Reportable Elliptocytes Not Reportable Acanthocytes (Spur) Not Reportable Rouleaux Not Reportable Hemoglobin C Crystals Not Reportable Schistocytes Not Reportable Malaria parasites Not Reportable Jl Bodies Not Reportable Hem Pathologist Commnt No Sodium 136 L Potassium 4.1 Chloride 94.4 L Carbon Dioxide 24 Anion Gap 22 BUN 16 Creatinine 0.9 Estimated GFR > 60 BUN/Creatinine Ratio 18 Glucose 86 Calcium 9.0 Blood Type A POSITIVE Antibody Screen Negative Crossmatch See Detail Assessment and Plan - Patient Problems (1) Iron deficiency anemia due to chronic blood loss Current Visit: Yes Status: Acute Plan to address problem: - Hx of AVMs at colonoscopy and EGD 2017. - Will start clears and encourage better prep for EGD/colon on Thursday with [facility]. - Patient needs outpatient f/u with Heme (has seen [facility] in the past) for regular iron infusions. (2) History of hepatitis C Current Visit: No Status: Acute Plan to address problem: - Unclear if treated in the past. - Will check HCV viral load. - US 2017 showed trace ascites and splenomegaly so suspect some degree of liver dysfunction.
[2017-03-22 20:42] LABS: Mean Corpuscular HGB Conc 30 % (32-34); Mean Corpuscular Volume 76 fl (84-94); Platelet Count 515 K/mm3 (140-440)
[2017-03-22 20:52] LABS: Hematocrit 37.3 % (35.5-45.6); Hemoglobin 11.2 gm/dl (11.8-15.2)
[2017-03-22 20:53] LABS: Mean Corpuscular Hemoglobin 23 pg (28-32); Red Cell Distribution Width 27.1 % (13.2-15.2)
--- NOTE | 2017-03-23 10:16 | Gastroenterology Progress Note ---
<KEYANA GALLEGO - Last Filed: 03/23/17 10:17> Assessment and Plan 1.TENNILLE due to chronic blood loss -HGB 11.2-s/p transfusion of 4 units PRBCs -continue to monitor H/H and transfuse as needed -hold blood thinning medications -currently hemodynamically stable -continue PPI -EGD/colonoscopy 2017 showed AVMs -will schedule for EGD/colonoscopy in am with [facility] -pt will need outpatient f/u with heme ([facility]) for regular iron infusions -clear liquids today then NPO after MM -continue supportive care 2.History of hep C -unclear if treated in the past -VL pending -U/S 2017 showed trace ascites and splenomegaly so suspect some degree of liver dysfunction Subjective Date of service: 03/23/17 Principal diagnosis: GI bleed, symptomatic anemia Interval history: Patient resting on stretcher. No acute distress. No active signs of bleeding overnight or this am per pt. Denies abd pain or N/V. Objective - Constitutional Vitals: Temp Pulse Resp BP Pulse Ox 98.1 F 73 18 118/63 100 03/23/17 08:27 03/23/17 08:27 03/23/17 08:27 03/23/17 08:27 03/23/17 08:27 General appearance: no acute distress - EENT Eyes: PERRL, EOM intact ENT: hearing intact - Respiratory Respiratory: bilateral: CTA - Cardiovascular Rhythm: regular Heart Sounds: Present: S1 & S2 - Gastrointestinal General gastrointestinal: Present: soft, non-tender, non-distended, normal bowel sounds - Integumentary Integumentary: Present: warm, dry - Neurologic Neurological: alert and oriented x3 - Labs CBC & Chem 7: 03/22/17 20:19 03/22/17 00:43 Labs: Laboratory Results - last 24 hr 03/22/17 03/22/17 01:44 20:19 WBC 8.1 RBC 4.90 Hgb 11.2 L D Hct 37.3 D MCV 76 L MCH 23 L MCHC 30 L RDW 27.1 H Plt Count 515 H Blood Type A POSITIVE Antibody Screen Negative Crossmatch See Detail <PENELOPE DIAS - Last Filed: 03/23/17 12:34> Assessment and Plan - Patient Problems (1) Iron deficiency anemia due to chronic blood loss Current Visit: Yes Status: Acute Plan to address problem: The patient was seen and examined. The GI care plan, EGD and colonoscopy tomorrow was discussed. Objective - Constitutional Vitals: Temp Pulse Resp BP Pulse Ox 98.1 F 73 18 118/63 100 03/23/17 08:27 03/23/17 08:27 03/23/17 08:27 03/23/17 08:27 03/23/17 08:27 - Labs CBC & Chem 7: 03/22/17 20:19 03/22/17 00:43 Labs: Laboratory Results - last 24 hr 03/22/17 03/22/17 01:44 20:19 WBC 8.1 RBC 4.90 Hgb 11.2 L D Hct 37.3 D MCV 76 L MCH 23 L MCHC 30 L RDW 27.1 H Plt Count 515 H Blood Type A POSITIVE Antibody Screen Negative Crossmatch See Detail
[2017-03-23] MEDS: FEOSOL PO SCH ×2 (11:16→22:06)
--- NOTE | 2017-03-23 14:33 | Progress Note ---
Assessment and Plan Symptomatic anemia, ? - due to GI bleed - FOBT positive - s/p 4units PRBC transfusion - On IV pantoprazole, GI following -EGD/colonoscopy 2016 showed AVMs -Plan for EGD/colonoscopy in am with [facility] -pt will need outpatient f/u with hematology ([facility]) for regular iron infusions -clear liquids today then NPO after Midnight -continue supportive care Diabetes mellitus - cont SSI for now DVT prophylaxis - SCDs because of severe anemia Brief history: 61-year-old male with past medical history is significant for diabetes mellitus 2, anemia presented to the emergency department complaining of dizziness for the last 2 days. On admission his Hb noted to be 5.0. Hospitalist Physical exam: GENERAL: well-developed elderly AAM lying on bed appeared to be in no discomfort. HEENT: Normocephalic. Atraumatic. No conjunctival congestion or icterus. Patient has moist mucous membranes. NECK: Supple. Trachea midline. CHEST/LUNGS: Clear to auscultated bilaterally, breathing nonlabored. No wheezes crackles or rhonchi. HEART/CARDIOVASCULAR: Regular in rate and rhythm. S1 and S2 positive. ABDOMEN: Abdomen is soft, nontender. Patient has normal bowel sounds. SKIN: There is no rash. Warm and dry. NEURO: No focal motor deficit. Follows command. MUSCULOSKELETAL: No joint effusion or tenderness. EXTRIMITY: No edema, no cyanosis or clubbing. PSYCH: Cooperative. Subjective Date of service: 03/23/17 Principal diagnosis: GI bleed, symptomatic anemia Interval history: Patient seen and examined. Medical records and medication list reviewed. No acute event overnight noted by the RN. Patient denies any chest pain or difficulty breathing. Patient has started on clear liquid diet. s/p 4 units of PRBC transfusion, plan for EGD/colonoscopy tomorrow Discussed plan of care at bedside with patient. Objective - Constitutional Vitals: Vital Signs - 12hr 03/23/17 03/23/17 03/23/17 05:30 05:34 08:27 Temperature 99.1 F 98.1 F Pulse Rate 76 73 Respiratory 20 20 18 Rate Blood Pressure 110/59 118/63 [Right] O2 Sat by Pulse 100 100 Oximetry - Labs CBC & Chem 7: 03/22/17 20:19 03/22/17 00:43 Labs: Abnormal lab results 03/22/17 03/22/17 Range/Units 01:44 20:19 Hgb 11.2 L D (11.8-15.2) gm/dl MCV 76 L (84-94) fl MCH 23 L (28-32) pg MCHC 30 L (32-34) % RDW 27.1 H (13.2-15.2) % Plt Count 515 H (140-440) K/mm3 Crossmatch See Detail
[2017-03-23] MEDS ORDERED: GOLYTELY PO ONE (16:00)
[2017-03-23] MEDS: PROTONIX IV SCH (22:07)
[2017-03-24 06:12] LABS: Hematocrit 35.7 % (35.5-45.6); Hemoglobin 11.1 gm/dl (11.8-15.2); Mean Corpuscular HGB Conc 31 % (32-34); Mean Corpuscular Volume 76 fl (84-94); Platelet Count 634 K/mm3 (140-440); Red Blood Count 4.69 M/mm3 (3.65-5.03)
[2017-03-24 06:15] LABS: Mean Corpuscular Hemoglobin 24 pg (28-32); Red Cell Distribution Width 27.6 % (13.2-15.2)
[2017-03-24 06:35] LABS: INR 1.06 (0.87-1.13)
[2017-03-24 08:00] LABS: Anisocytosis 2+; Band Neutrophils # (Manual) 0.1 K/mm3; Basophils % (Manual) 0 % (0.0-1.8); Hypochromasia 1+; Macrocytosis 1+; Total Cells Counted 100
[2017-03-24 08:01] LABS: Large Platelets Few; Platelet Estimate Consistent w Auto
[2017-03-24] MEDS ORDERED: WATER FOR IRRIG STERILE IR ONE (09:00)
[2017-03-24] MEDS ORDERED: WATER FOR IRRIG STERILE ONE (09:01)
[2017-03-24] MEDS ORDERED: INFANTS' GAS RELIEF PO ONE (09:01)
[2017-03-24] MEDS: NACL 0.9% 1000 ML 1,000 ML IV SCH ×2 (09:10→12:50)
--- NOTE | 2017-03-24 09:17 | Anesthesia Day of Surgery ---
Anesthesia Day of Surgery - Day of Surgery Patient Examined: Yes Patient H&P Reviewed: Yes Patient is NPO: Yes
--- NOTE | 2017-03-24 09:17 | Anesthesia Consultation ---
Anesthesia Consult and Med Hx Date of service: 03/24/17 - Airway Anesthetic Teeth Evaluation: Edentulous ROM Head & Neck: Adequate Mental/Hyoid Distance: Adequate Mallampati Class: Class II Intubation Access Assessment: Probably Good - Pre-Operative Health Status ASA Pre-Surgery Classification: ASA3 - Pulmonary Hx Smoking: Yes (8-9 cigs/day) Hx Asthma: No COPD: No Hx Pneumonia: No - Cardiovascular System Hx Hypertension: No - Central Nervous System Hx Seizures: No CVA: No Hx Psychiatric Problems: No - Endocrine Hx End Stage Renal Disease: No Hx Cirrhosis: Yes (HEP C) Hx Non-Insulin Dependent Diabetes: Yes - Hematic Hx Anemia: Yes Hx Sickle Cell Disease: No - Other Systems Hx Alcohol Use: Yes Hx Cancer: No
[2017-03-24] MEDS ORDERED: DIPRIVAN 10 MG/ML IV ONE ×3 (09:31→10:06)
--- NOTE | 2017-03-24 10:29 | Operative Report ---
Operative Report Operative Report: Date of procedure: 03/24/2018 Procedure: Enteroscopy and ablation of multiple AVMs Preprocedure diagnosis: History of AVMs now with recurrent severe anemia Post procedure diagnosis: Multiple AVMs of the upper digestive tract Endoscopist: Dr. Richards Anesthesia: Monitored anesthesia care per anesthesia department Medications: Propofol per anesthesia Estimated blood loss: 0 After careful discussion of the nature and purpose of the procedure as well as details the technique risks benefits and alternatives consent was obtained. The patient was placed in the left lateral decubitus position and medicated per anesthesia. The tip of the [employer] 570 video scope was passed per orum under direct vision into the esophagus and advanced into the stomach, descending duodenum and to the ligament of Treitz. The fourth portion of the duodenum reveal several AVMs which were ablated with the argon plasma cook helper. The third and descending duodenum likewise reveal several AVMs which were ablated with the argon plasma cook helper. The duodenal bulb and pylorus were symmetrical and normal. The scope was withdrawn into the stomach and the stomach then gently insufflated with air. The antrum was normal. The stomach was further insufflated and the scope was then retroflexed and partially withdrawn. The cardia, fundus, and body of the stomach were easily distensible.multiple small AVMs are present, approximately 6 lesions which were ablated with the argon plasma cook helper. The scope was then withdrawn in the forward position. The esophagogastric junction was at 40 cm. The esophageal body was normal throughout. The procedure was was well tolerated and the patient was observed in recovery. 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 Plan: Further evaluation with colonoscopy. Continue lifelong iron therapy. Consideration of pill camera study as outpatient. Electronically signed: Iker Richards MD
--- NOTE | 2017-03-24 10:32 | Post Anesthesia Evaluation ---
- Post Anesthesia Evaluation Patient Participated: Yes Airway Patent: Yes Stable Respiratory Function: Yes Nausea/Vomiting: No Temp > 96.8F: Yes Pain Manageable: Yes Adequeate Hydration: Yes Anesthesia Complications: No
--- NOTE | 2017-03-24 10:34 | Operative Report ---
Operative Report Operative Report: Date of procedure: 03/24/2017 Preprocedure diagnosis: History of arteriovenous malformations of the colon now presenting with severe anemia. Post procedure diagnosis: Numerous AVMs throughout the colon. Fair preparation. Procedure: Colonoscopy to the cecum with argon plasma coagulation and ablation of multiple AVMs. Endoscopist: Dr. Richards Anesthesia: Monitored anesthesia care per anesthesia department Estimated blood loss: 0 Medications: Monitored anesthesia care. See separate report by anesthesia for details. After careful discussion of the nature and purpose of the procedure as well as details of the technique risks benefits and alternatives the patient gave consent. Please see recent history and physical from the office. The patient was placed in the left lateral decubitus position and medicated per anesthesia. A rectal exam was performed sphincter tone was normal there were no masses palpable. The [employer] 570 scope was passed transanally and advanced under continuous direct vision without difficulty to the cecum. The colon preparation was fair and reasonably good after significant lavage. There were several AVMs in 3-6 mm in size in the cecum. Multiple AVMs in the same size category were present throughout the ascending colon, transverse colon and descending colon. Multiple AVMs were ablated with the argon plasma cooking teacher throughout the colon although there were probably several more that may not have been seen due to there being some thick liquid stool present. The sigmoid colon was normal. The rectum was normal on forward and retroflexed views. The procedure was well- tolerated overall and the patient was observed in recovery. Conclusions: Multiple AVMs throughout the colon, at least 15 lesions ablated. Fair prep reducing the sensitivity for additional lesions. No evidence of neoplasia. Plan: Continue lifelong iron therapy, the patient may need IV iron limitation depending on his progress. Consideration of outpatient pill camera study. Advance diet. The patient may go home if stable in other respects today. Signed electronically: Iker Richards M.D.
--- NOTE | 2017-03-24 12:47 | Progress Note ---
<KAILEE WAY - Last Filed: 03/24/17 14:45> Assessment and Plan Assessment and plan: Symptomatic anemia, ? - due to GI bleed - FOBT positive - s/p 4units PRBC transfusion - On IV pantoprazole, GI following -EGD/colonoscopy 2017 showed AVMs -s/p EGD/colonoscopy today with APC- multiple VMs throughout the colon, at least 15 lesions ablated. Fair prep reducing the sensitivity for additional lesions. No evidence of neoplasia. Continue lifelong iron therapy, the patient may need IV iron limitation depending on his progress. Consideration of outpatient pill camera study. -pt will need outpatient f/u with hematology ([place] cancer) for regular iron infusions -continue supportive care Diabetes mellitus - cont SSI for now DVT prophylaxis - SCDs because of severe anemia History Interval history: Patient seen and examined. He denies shortness of breath, nausea, vomiting, chest pain. Labs and nursing notes reviewed Hospitalist Physical - Constitutional Vitals: Temp Pulse Resp BP Pulse Ox 97.6 F 76 22 107/68 100 03/24/17 10:19 03/24/17 10:49 03/24/17 10:49 03/24/17 10:49 03/24/17 10:49 General appearance: Present: no acute distress, well-nourished - EENT Eyes: Present: PERRL, EOM intact ENT: hearing intact, clear oral mucosa - Neck Neck: Present: supple, normal ROM - Respiratory Respiratory effort: normal Respiratory: bilateral: CTA - Cardiovascular Rhythm: regular Heart Sounds: Present: S1 & S2 - Extremities Extremities: no ischemia, No edema - Abdominal General gastrointestinal: soft, non-tender, non-distended - Integumentary Integumentary: Present: clear - Psychiatric Psychiatric: appropriate mood/affect, cooperative - Neurologic Neurologic: CNII-XII intact, moves all extremities - Allied Health Allied health notes reviewed: nursing Results - Labs CBC & Chem 7: 03/24/17 04:43 03/22/17 00:43 Labs: Laboratory Last Values WBC 7.7 K/mm3 (4.5-11.0) 03/24/17 04:43 RBC 4.69 M/mm3 (3.65-5.03) 03/24/17 04:43 Hgb 11.1 gm/dl (11.8-15.2) L 03/24/17 04:43 Hct 35.7 % (35.5-45.6) 03/24/17 04:43 MCV 76 fl (84-94) L 03/24/17 04:43 MCH 24 pg (28-32) L 03/24/17 04:43 MCHC 31 % (32-34) L 03/24/17 04:43 RDW 27.6 % (13.2-15.2) H 03/24/17 04:43 Plt Count 634 K/mm3 (140-440) H 03/24/17 04:43 Add Manual Diff Complete 03/24/17 04:43 Total Counted 100 03/24/17 04:43 Seg Neuts % (Manual) 73.0 % (40.0-70.0) H 03/24/17 04:43 Band Neutrophils % 1.0 % 03/24/17 04:43 Lymphocytes % (Manual) 8.0 % (13.4-35.0) L 03/24/17 04:43 Reactive Lymphs % (Man) 0 % 03/24/17 04:43 Monocytes % (Manual) 13.0 % (0.0-7.3) H 03/24/17 04:43 Eosinophils % (Manual) 5.0 % (0.0-4.3) H 03/24/17 04:43 Basophils % (Manual) 0 % (0.0-1.8) 03/24/17 04:43 Metamyelocytes % 0 % 03/24/17 04:43 Myelocytes % 0 % 03/24/17 04:43 Promyelocytes % 0 % 03/24/17 04:43 Blast Cells % 0 % 03/24/17 04:43 Nucleated RBC % Not Reportable 03/24/17 04:43 Seg Neutrophils # Man 5.6 K/mm3 (1.8-7.7) 03/24/17 04:43 Band Neutrophils # 0.1 K/mm3 03/24/17 04:43 Lymphocytes # (Manual) 0.6 K/mm3 (1.2-5.4) L 03/24/17 04:43 Abs React Lymphs (Man) 0.0 K/mm3 03/24/17 04:43 Monocytes # (Manual) 1.0 K/mm3 (0.0-0.8) H 03/24/17 04:43 Eosinophils # (Manual) 0.4 K/mm3 (0.0-0.4) 03/24/17 04:43 Basophils # (Manual) 0.0 K/mm3 (0.0-0.1) 03/24/17 04:43 Metamyelocytes # 0.0 K/mm3 03/24/17 04:43 Myelocytes # 0.0 K/mm3 03/24/17 04:43 Promyelocytes # 0.0 K/mm3 03/24/17 04:43 Blast Cells # 0.0 K/mm3 03/24/17 04:43 WBC Morphology Not Reportable 03/24/17 04:43 Hypersegmented Neuts Not Reportable 03/24/17 04:43 Hyposegmented Neuts Not Reportable 03/24/17 04:43 Hypogranular Neuts Not Reportable 03/24/17 04:43 Smudge Cells Not Reportable 03/24/17 04:43 Toxic Granulation Not Reportable 03/24/17 04:43 Toxic Vacuolation Not Reportable 03/24/17 04:43 Dohle Bodies Not Reportable 03/24/17 04:43 Pelger-Huet Anomaly Not Reportable 03/24/17 04:43 Katia Rods Not Reportable 03/24/17 04:43 Platelet Estimate Consistent w auto 03/24/17 04:43 Clumped Platelets Not Reportable 03/24/17 04:43 Plt Clumps, EDTA Not Reportable 03/24/17 04:43 Large Platelets Few 03/24/17 04:43 Giant Platelets Not Reportable 03/24/17 04:43 Platelet Satelliting Not Reportable 03/24/17 04:43 Plt Morphology Comment Not Reportable 03/24/17 04:43 RBC Morphology Not Reportable 03/24/17 04:43 Dimorphic RBCs Not Reportable 03/24/17 04:43 Polychromasia 1+ 03/24/17 04:43 Hypochromasia 1+ 03/24/17 04:43 Poikilocytosis Not Reportable 03/24/17 04:43 Anisocytosis 2+ 03/24/17 04:43 Microcytosis Not Reportable 03/24/17 04:43 Macrocytosis 1+ 03/24/17 04:43 Spherocytes Not Reportable 03/24/17 04:43 Pappenheimer Bodies Not Reportable 03/24/17 04:43 Sickle Cells Not Reportable 03/24/17 04:43 Target Cells Not Reportable 03/24/17 04:43 Tear Drop Cells Not Reportable 03/24/17 04:43 Ovalocytes Not Reportable 03/24/17 04:43 Helmet Cells Not Reportable 03/24/17 04:43 [place] Bodies Not Reportable 03/24/17 04:43 [place] Rings Not Reportable 03/24/17 04:43 [place] Cells Not Reportable 03/24/17 04:43 Bite Cells Not Reportable 03/24/17 04:43 Crenated Cell Not Reportable 03/24/17 04:43 Elliptocytes Not Reportable 03/24/17 04:43 Acanthocytes (Spur) Not Reportable 03/24/17 04:43 Rouleaux Not Reportable 03/24/17 04:43 Hemoglobin C Crystals Not Reportable 03/24/17 04:43 Schistocytes Not Reportable 03/24/17 04:43 Malaria parasites Not Reportable 03/24/17 04:43 Jl Bodies Not Reportable 03/24/17 04:43 Hem Pathologist Commnt No 03/24/17 04:43 PT 14.4 Sec. (12.2-14.9) 03/24/17 04:43 INR 1.06 (0.87-1.13) 03/24/17 04:43 Sodium 136 mmol/L (137-145) L 03/22/17 00:43 Potassium 4.1 mmol/L (3.6-5.0) 03/22/17 00:43 Chloride 94.4 mmol/L (98-107) L 03/22/17 00:43 Carbon Dioxide 24 mmol/L (22-30) 03/22/17 00:43 Anion Gap 22 mmol/L 03/22/17 00:43 BUN 16 mg/dL (9-20) 03/22/17 00:43 Creatinine 0.9 mg/dL (0.8-1.5) 03/22/17 00:43 Estimated GFR > 60 ml/min 03/22/17 00:43 BUN/Creatinine Ratio 18 % 03/22/17 00:43 Glucose 86 mg/dL (75-100) 03/22/17 00:43 POC Glucose 74 (70-105) 03/24/17 09:08 Calcium 9.0 mg/dL (8.4-10.2) 03/22/17 00:43 Blood Type A POSITIVE 03/22/17 01:44 Antibody Screen Negative 03/22/17 01:44 Crossmatch See Detail 03/22/17 01:44 <ELISABETH ALBRIGHT R - Last Filed: 03/24/17 15:01> Assessment and Plan Assessment and plan: I saw and evaluated the patient. I agree with the findings and the plan of care as documented in the PA's~note Hospitalist Physical - Constitutional Vitals: Temp Pulse Resp BP Pulse Ox 97.6 F 76 22 107/68 100 03/24/17 10:19 03/24/17 10:49 03/24/17 10:49 03/24/17 10:49 03/24/17 10:49 Results - Labs CBC & Chem 7: 03/24/17 04:43 03/22/17 00:43 Labs: Laboratory Last Values WBC 7.7 K/mm3 (4.5-11.0) 03/24/17 04:43 RBC 4.69 M/mm3 (3.65-5.03) 03/24/17 04:43 Hgb 11.1 gm/dl (11.8-15.2) L 03/24/17 04:43 Hct 35.7 % (35.5-45.6) 03/24/17 04:43 MCV 76 fl (84-94) L 03/24/17 04:43 MCH 24 pg (28-32) L 03/24/17 04:43 MCHC 31 % (32-34) L 03/24/17 04:43 RDW 27.6 % (13.2-15.2) H 03/24/17 04:43 Plt Count 634 K/mm3 (140-440) H 03/24/17 04:43 Add Manual Diff Complete 03/24/17 04:43 Total Counted 100 03/24/17 04:43 Seg Neuts % (Manual) 73.0 % (40.0-70.0) H 03/24/17 04:43 Band Neutrophils % 1.0 % 03/24/17 04:43 Lymphocytes % (Manual) 8.0 % (13.4-35.0) L 03/24/17 04:43 Reactive Lymphs % (Man) 0 % 03/24/17 04:43 Monocytes % (Manual) 13.0 % (0.0-7.3) H 03/24/17 04:43 Eosinophils % (Manual) 5.0 % (0.0-4.3) H 03/24/17 04:43 Basophils % (Manual) 0 % (0.0-1.8) 03/24/17 04:43 Metamyelocytes % 0 % 03/24/17 04:43 Myelocytes % 0 % 03/24/17 04:43 Promyelocytes % 0 % 03/24/17 04:43 Blast Cells % 0 % 03/24/17 04:43 Nucleated RBC % Not Reportable 03/24/17 04:43 Seg Neutrophils # Man 5.6 K/mm3 (1.8-7.7) 03/24/17 04:43 Band Neutrophils # 0.1 K/mm3 03/24/17 04:43 Lymphocytes # (Manual) 0.6 K/mm3 (1.2-5.4) L 03/24/17 04:43 Abs React Lymphs (Man) 0.0 K/mm3 03/24/17 04:43 Monocytes # (Manual) 1.0 K/mm3 (0.0-0.8) H 03/24/17 04:43 Eosinophils # (Manual) 0.4 K/mm3 (0.0-0.4) 03/24/17 04:43 Basophils # (Manual) 0.0 K/mm3 (0.0-0.1) 03/24/17 04:43 Metamyelocytes # 0.0 K/mm3 03/24/17 04:43 Myelocytes # 0.0 K/mm3 03/24/17 04:43 Promyelocytes # 0.0 K/mm3 03/24/17 04:43 Blast Cells # 0.0 K/mm3 03/24/17 04:43 WBC Morphology Not Reportable 03/24/17 04:43 Hypersegmented Neuts Not Reportable 03/24/17 04:43 Hyposegmented Neuts Not Reportable 03/24/17 04:43 Hypogranular Neuts Not Reportable 03/24/17 04:43 Smudge Cells Not Reportable 03/24/17 04:43 Toxic Granulation Not Reportable 03/24/17 04:43 Toxic Vacuolation Not Reportable 03/24/17 04:43 Dohle Bodies Not Reportable 03/24/17 04:43 Pelger-Huet Anomaly Not Reportable 03/24/17 04:43 Katia Rods Not Reportable 03/24/17 04:43 Platelet Estimate Consistent w auto 03/24/17 04:43 Clumped Platelets Not Reportable 03/24/17 04:43 Plt Clumps, EDTA Not Reportable 03/24/17 04:43 Large Platelets Few 03/24/17 04:43 Giant Platelets Not Reportable 03/24/17 04:43 Platelet Satelliting Not Reportable 03/24/17 04:43 Plt Morphology Comment Not Reportable 03/24/17 04:43 RBC Morphology Not Reportable 03/24/17 04:43 Dimorphic RBCs Not Reportable 03/24/17 04:43 Polychromasia 1+ 03/24/17 04:43 Hypochromasia 1+ 03/24/17 04:43 Poikilocytosis Not Reportable 03/24/17 04:43 Anisocytosis 2+ 03/24/17 04:43 Microcytosis Not Reportable 03/24/17 04:43 Macrocytosis 1+ 03/24/17 04:43 Spherocytes Not Reportable 03/24/17 04:43 Pappenheimer Bodies Not Reportable 03/24/17 04:43 Sickle Cells Not Reportable 03/24/17 04:43 Target Cells Not Reportable 03/24/17 04:43 Tear Drop Cells Not Reportable 03/24/17 04:43 Ovalocytes Not Reportable 03/24/17 04:43 Helmet Cells Not Reportable 03/24/17 04:43 [place] Bodies Not Reportable 03/24/17 04:43 [place] Rings Not Reportable 03/24/17 04:43 [place] Cells Not Reportable 03/24/17 04:43 Bite Cells Not Reportable 03/24/17 04:43 Crenated Cell Not Reportable 03/24/17 04:43 Elliptocytes Not Reportable 03/24/17 04:43 Acanthocytes (Spur) Not Reportable 03/24/17 04:43 Rouleaux Not Reportable 03/24/17 04:43 Hemoglobin C Crystals Not Reportable 03/24/17 04:43 Schistocytes Not Reportable 03/24/17 04:43 Malaria parasites Not Reportable 03/24/17 04:43 Jl Bodies Not Reportable 03/24/17 04:43 Hem Pathologist Commnt No 03/24/17 04:43 PT 14.4 Sec. (12.2-14.9) 03/24/17 04:43 INR 1.06 (0.87-1.13) 03/24/17 04:43 Sodium 136 mmol/L (137-145) L 03/22/17 00:43 Potassium 4.1 mmol/L (3.6-5.0) 03/22/17 00:43 Chloride 94.4 mmol/L (98-107) L 03/22/17 00:43 Carbon Dioxide 24 mmol/L (22-30) 03/22/17 00:43 Anion Gap 22 mmol/L 03/22/17 00:43 BUN 16 mg/dL (9-20) 03/22/17 00:43 Creatinine 0.9 mg/dL (0.8-1.5) 03/22/17 00:43 Estimated GFR > 60 ml/min 03/22/17 00:43 BUN/Creatinine Ratio 18 % 03/22/17 00:43 Glucose 86 mg/dL (75-100) 03/22/17 00:43 POC Glucose 74 (70-105) 03/24/17 09:08 Calcium 9.0 mg/dL (8.4-10.2) 03/22/17 00:43 Blood Type A POSITIVE 03/22/17 01:44 Antibody Screen Negative 03/22/17 01:44 Crossmatch See Detail 03/22/17 01:44
[2017-03-24] MEDS: FEOSOL PO SCH ×2 (12:50→22:14)
[2017-03-24] MEDS: PROTONIX PO SCH ×2 (12:50→22:14)
[2017-03-24] MEDS: PROTONIX IV SCH (14:18)
--- NOTE | 2017-03-24 15:01 | Discharge Summary ---
Providers - Providers Date of Admission: 03/22/17 02:50 Date of discharge: 03/24/17 Attending physician: ELISABETH ALBRIGHT 03/22/17 02:42 Consult to Physician [CONS] Urgent Consulting Provider: PENELOPE DIAS Reason For Exam: GI bleed, symptomatic anemia Place consult to:: Notified:: Phone number called:: [phone] Was contact made?: Yes If yes, spoke with:: ALONSO Time called:: 16:56 Comment:: JANKI Primary care physician: CARMEN FUENTES Hospitalization Condition: Stable Hospital course: Patient is a 61-year-old man with history of type 2 diabetes mellitus who presents with rectal bleeding. 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 Dias: Conclusions: Multiple AVMs throughout the colon, at least 15 lesions ablated. Fair prep reducing the sensitivity for additional lesions. No evidence of neoplasia. Plan: Continue lifelong iron therapy, the patient may need IV iron limitation depending on his progress. Consideration of outpatient pill camera study. Advance diet. The patient may go home if stable in other respects today." h/h stable, Will discharge Disposition: DC-01 TO HOME OR SELFCARE Time spent for discharge: 32 minutes Core Measure Documentation - Palliative Care Palliative Care/ Comfort Measures: Not Applicable - Core Measures Any of the following diagnoses?: none - VTE Discharge Requirements Deep Vein Thrombosis/Pulmonary Embolism Present on Admission: No Has pt received <5 days of overlap therapy or INR<2.0: No Anticoagulant overlap therapy prescribed at discharge: No Contraindication No Overlap Therapy order at DC: Not Indicated Exam - Physical Exam Narrative exam: GEN: Thin frail BMI 19.7, NAD, AWAKE, ALERT, ORIENTATED 3 HEENT: NCAT, EOMI, PERRL, OP Clear NECK: supple, no adenopathy, no thyromegaly, no JVD CVS/HEART: RRR, NORMAL S1S2, NO JVD, pulses present bilaterally CHEST/LUNGS: CTA B, Symmetrical chest expansion, good air entry bilaterally GI/Abdomen: soft, NTND, good bowel sounds, no guarding or rebound /Bladder: no suprapubic tenderness, no CVA or paraspinal tenderness EXT/Skin: no c/c/e, no obvious rash MSK: FROM x 4 Neuro: CN 2-12 grossly intact, no new focal deficits Psych: calm - Constitutional Vitals: Temp Pulse Resp BP Pulse Ox 97.6 F 76 22 107/68 100 03/24/17 10:19 03/24/17 10:49 03/24/17 10:49 03/24/17 10:49 03/24/17 10:49 Plan Activity: other (no strenous activity until cleared by pcp) Diet: advance as tolerated Additional Instructions: Please call Dr. Dias office to schedule outpatient camera Scopy Follow up with: CARMEN FUENTES MD [Primary Care Provider] - 3-5 Days PENELOPE DIAS MD [Staff Physician] - 7 Days Prescriptions: Docusate Sodium [Colace] 100 mg PO BID #60 capsule Ferrous Sulfate [Feosol 325 MG tab] 325 mg PO BID #60 tablet Pantoprazole [Protonix TAB] 40 mg PO BID #30 day
[2017-03-25] MEDS: FEOSOL PO SCH (10:19)
[2017-03-25] MEDS: PROTONIX PO SCH (10:19)
[2017-03-25 10:44] VITALS: BP 108/65
--- NOTE | 2017-03-25 12:13 | Progress Note ---
Assessment and Plan Assessment and plan: Patient is a 61-year-old man with history of type 2 diabetes mellitus, anemia and tobacco dependency who presents to the emergency department with dizziness, he was found to have a hemoglobin of 5.0, hematocrit 18.9 with MCV of only 63 and he was fecal occult blood positive. -Acute on chronic blood loss anemia due to colonic AVMs Symptomatic anemia, - due to GI bleed - FOBT positive - s/p 4units PRBC transfusion - On pantoprazole, GI following "s/p EGD/colonoscopy today with APC- multiple AVMs throughout the colon, at least 15 lesions ablated. Fair prep reducing the sensitivity for additional lesions. No evidence of neoplasia. Continue lifelong iron therapy, the patient may need IV iron limitation depending on his progress. Consideration of outpatient pill camera study. pt will need outpatient f/u with hematology ([place] cancer) for regular iron infusions continue supportive care" per GI Diabetes mellitus, type 2 - cont SSI for now - ada diet Tobacco dependency Counseled on stopping DVT prophylaxis Suspected moderate malnutrition Diet supplements, lifestyle modification with diet discussed - DVT prophylaxis: SCDs because of severe anemia 03/25/17: He was supposed to be discharged home yesterday, but he did not leave the hospital stay, reason unknown to me (d/w nursing and Chief Hospitalist who spoke with Case biosolids management technician, David). Today porter sample case reports that nobody will come pick him up today because of bad weather. History Interval history: Patient was seen and examined. Follow-up on current diagnosis/dizziness. Overnight uneventful. Patient denies any chest pain, shortness breath, vomiting or severe headaches. Imaging, nursing note, chart, labs and old chart reviewed. Discussed with patient. Patient states his dizziness is better but is still there. He denies any severe headaches. He was slightly nauseous yesterday but no vomiting. He was supposed to be discharged home yesterday, but he did not leave the hospital stay, reason unknow to me (d/w nursing and Chief Hospitalist who spoke with Case biosolids management technician, David). Today porter sample case reports that nobody will come pick him up today because of bad weather. Hospitalist Physical - Physical exam Narrative exam: GEN: Thin frail BMI 19.7, NAD, AWAKE, ALERT, ORIENTATED 3 HEENT: NCAT, EOMI, PERRL, OP Clear NECK: supple, no adenopathy, no thyromegaly, no JVD CVS/HEART: RRR, NORMAL S1S2, NO JVD, pulses present bilaterally CHEST/LUNGS: CTA B, Symmetrical chest expansion, good air entry bilaterally GI/Abdomen: soft, NTND, good bowel sounds, no guarding or rebound /Bladder: no suprapubic tenderness, no CVA or paraspinal tenderness EXT/Skin: no c/c/e, no obvious rash MSK: FROM x 4 Neuro: CN 2-12 grossly intact, no new focal deficits Psych: calm - Constitutional Vitals: Temp Pulse Resp BP Pulse Ox 99.1 F 96 H 20 108/65 98 03/25/17 08:57 03/25/17 08:57 03/25/17 10:00 03/25/17 08:57 03/25/17 08:57 General appearance: Present: no acute distress, well-nourished Results - Labs CBC & Chem 7: 03/24/17 04:43 03/22/17 00:43 Labs: Laboratory Last Values WBC 7.7 K/mm3 (4.5-11.0) 03/24/17 04:43 RBC 4.69 M/mm3 (3.65-5.03) 03/24/17 04:43 Hgb 11.1 gm/dl (11.8-15.2) L 03/24/17 04:43 Hct 35.7 % (35.5-45.6) 03/24/17 04:43 MCV 76 fl (84-94) L 03/24/17 04:43 MCH 24 pg (28-32) L 03/24/17 04:43 MCHC 31 % (32-34) L 03/24/17 04:43 RDW 27.6 % (13.2-15.2) H 03/24/17 04:43 Plt Count 634 K/mm3 (140-440) H 03/24/17 04:43 Add Manual Diff Complete 03/24/17 04:43 Total Counted 100 03/24/17 04:43 Seg Neuts % (Manual) 73.0 % (40.0-70.0) H 03/24/17 04:43 Band Neutrophils % 1.0 % 03/24/17 04:43 Lymphocytes % (Manual) 8.0 % (13.4-35.0) L 03/24/17 04:43 Reactive Lymphs % (Man) 0 % 03/24/17 04:43 Monocytes % (Manual) 13.0 % (0.0-7.3) H 03/24/17 04:43 Eosinophils % (Manual) 5.0 % (0.0-4.3) H 03/24/17 04:43 Basophils % (Manual) 0 % (0.0-1.8) 03/24/17 04:43 Metamyelocytes % 0 % 03/24/17 04:43 Myelocytes % 0 % 03/24/17 04:43 Promyelocytes % 0 % 03/24/17 04:43 Blast Cells % 0 % 03/24/17 04:43 Nucleated RBC % Not Reportable 03/24/17 04:43 Seg Neutrophils # Man 5.6 K/mm3 (1.8-7.7) 03/24/17 04:43 Band Neutrophils # 0.1 K/mm3 03/24/17 04:43 Lymphocytes # (Manual) 0.6 K/mm3 (1.2-5.4) L 03/24/17 04:43 Abs React Lymphs (Man) 0.0 K/mm3 03/24/17 04:43 Monocytes # (Manual) 1.0 K/mm3 (0.0-0.8) H 03/24/17 04:43 Eosinophils # (Manual) 0.4 K/mm3 (0.0-0.4) 03/24/17 04:43 Basophils # (Manual) 0.0 K/mm3 (0.0-0.1) 03/24/17 04:43 Metamyelocytes # 0.0 K/mm3 03/24/17 04:43 Myelocytes # 0.0 K/mm3 03/24/17 04:43 Promyelocytes # 0.0 K/mm3 03/24/17 04:43 Blast Cells # 0.0 K/mm3 03/24/17 04:43 WBC Morphology Not Reportable 03/24/17 04:43 Hypersegmented Neuts Not Reportable 03/24/17 04:43 Hyposegmented Neuts Not Reportable 03/24/17 04:43 Hypogranular Neuts Not Reportable 03/24/17 04:43 Smudge Cells Not Reportable 03/24/17 04:43 Toxic Granulation Not Reportable 03/24/17 04:43 Toxic Vacuolation Not Reportable 03/24/17 04:43 Dohle Bodies Not Reportable 03/24/17 04:43 Pelger-Huet Anomaly Not Reportable 03/24/17 04:43 Katia Rods Not Reportable 03/24/17 04:43 Platelet Estimate Consistent w auto 03/24/17 04:43 Clumped Platelets Not Reportable 03/24/17 04:43 Plt Clumps, EDTA Not Reportable 03/24/17 04:43 Large Platelets Few 03/24/17 04:43 Giant Platelets Not Reportable 03/24/17 04:43 Platelet Satelliting Not Reportable 03/24/17 04:43 Plt Morphology Comment Not Reportable 03/24/17 04:43 RBC Morphology Not Reportable 03/24/17 04:43 Dimorphic RBCs Not Reportable 03/24/17 04:43 Polychromasia 1+ 03/24/17 04:43 Hypochromasia 1+ 03/24/17 04:43 Poikilocytosis Not Reportable 03/24/17 04:43 Anisocytosis 2+ 03/24/17 04:43 Microcytosis Not Reportable 03/24/17 04:43 Macrocytosis 1+ 03/24/17 04:43 Spherocytes Not Reportable 03/24/17 04:43 Pappenheimer Bodies Not Reportable 03/24/17 04:43 Sickle Cells Not Reportable 03/24/17 04:43 Target Cells Not Reportable 03/24/17 04:43 Tear Drop Cells Not Reportable 03/24/17 04:43 Ovalocytes Not Reportable 03/24/17 04:43 Helmet Cells Not Reportable 03/24/17 04:43 [place] Bodies Not Reportable 03/24/17 04:43 [place] Rings Not Reportable 03/24/17 04:43 [place] Cells Not Reportable 03/24/17 04:43 Bite Cells Not Reportable 03/24/17 04:43 Crenated Cell Not Reportable 03/24/17 04:43 Elliptocytes Not Reportable 03/24/17 04:43 Acanthocytes (Spur) Not Reportable 03/24/17 04:43 Rouleaux Not Reportable 03/24/17 04:43 Hemoglobin C Crystals Not Reportable 03/24/17 04:43 Schistocytes Not Reportable 03/24/17 04:43 Malaria parasites Not Reportable 03/24/17 04:43 Jl Bodies Not Reportable 03/24/17 04:43 Hem Pathologist Commnt No 03/24/17 04:43 PT 14.4 Sec. (12.2-14.9) 03/24/17 04:43 INR 1.06 (0.87-1.13) 03/24/17 04:43 Sodium 136 mmol/L (137-145) L 03/22/17 00:43 Potassium 4.1 mmol/L (3.6-5.0) 03/22/17 00:43 Chloride 94.4 mmol/L (98-107) L 03/22/17 00:43 Carbon Dioxide 24 mmol/L (22-30) 03/22/17 00:43 Anion Gap 22 mmol/L 03/22/17 00:43 BUN 16 mg/dL (9-20) 03/22/17 00:43 Creatinine 0.9 mg/dL (0.8-1.5) 03/22/17 00:43 Estimated GFR > 60 ml/min 03/22/17 00:43 BUN/Creatinine Ratio 18 % 03/22/17 00:43 Glucose 86 mg/dL (75-100) 03/22/17 00:43 POC Glucose 74 (70-105) 03/24/17 09:08 Calcium 9.0 mg/dL (8.4-10.2) 03/22/17 00:43 Blood Type A POSITIVE 03/22/17 01:44 Antibody Screen Negative 03/22/17 01:44 Crossmatch See Detail 03/22/17 01:44
== END 2017-03-25 15:07 | disposition home or self-care (01) | DRG 300 ==
LOC: ED 00:03 → 3A 02:50 → 2B-ACE 03-23 11:38
PROVIDERS: ADMIT Internal Medicine; ATTEND Internal Medicine
PROC: 30233N1 Transfusion of Nonautologous Red Blood Cells into Peripheral Vein, Percutaneous Approach (ICD-10-PCS; 2017-03-22)
PROC: 0D598ZZ Destruction of Duodenum, Via Natural or Artificial Opening Endoscopic (ICD-10-PCS; principal; 2017-03-24)
PROC: 0D5K8ZZ Destruction of Ascending Colon, Via Natural or Artificial Opening Endoscopic (ICD-10-PCS; 2017-03-24)
PROC: 0D5L8ZZ Destruction of Transverse Colon, Via Natural or Artificial Opening Endoscopic (ICD-10-PCS; 2017-03-24)
PROC: 0D5M8ZZ Destruction of Descending Colon, Via Natural or Artificial Opening Endoscopic (ICD-10-PCS; 2017-03-24)
DX: Q27.33 Arteriovenous malformation of digestive system vessel (principal); D62 Acute posthemorrhagic anemia; E11.9 Type 2 diabetes mellitus without complications; Z79.84 Long term (current) use of oral hypoglycemic drugs; F17.210 Nicotine dependence, cigarettes, uncomplicated; B19.20 Unspecified viral hepatitis C without hepatic coma; K74.60 Unspecified cirrhosis of liver
CPT/HCPCS: 36415; 80048; 82271; 82962; 85007; 85025; 85027; 85610; 86850; 86900; 86901; 86920; 87517; 93005; 93010; 96374; 96376; 99285; C9113; J2704; J7030; J7040; P9016

== ENCOUNTER 2017-06-26 12:31 | Inpatient (IN) | payer SELFPAY ==
--- NOTE | 2017-06-26 12:50 | Emergency Department Report ---
ED Dizziness HPI - General Stated Complaint: DIZZINESS Time Seen by Provider: 06/26/17 12:49 Source: patient Mode of arrival: Stretcher Limitations: No Limitations - History of Present Illness Initial Comments: 61-year-old male presents to emergency room with complaints of dizziness that lasted approximately 30 minutes. Patient states the dizziness to place approximately 3 hours ago and he has not had any since. Patient states his dizziness is better with rest. Patient states his dizziness is worse with standing up. Patient denies chest pain and shortness of breath. Patient denies fever and chills. Patient denies cough and abdominal pain. Patient denied syncope or loss of consciousness. MD Complaint: dizziness, lightheadedness -: Sudden Timing: sudden onset Description: lightheadedness History of Same: No History of Trauma: No Severity: severe Improves With: remaining still, rehydration, rest Worsens With: movement, position, exertion Associated Symptoms: denies other symptoms. denies: ataxia, chest pain, confusion, cough, diaphoresis, fever/chills, loss of appetite, malaise, rash, seizure, shortness of breath, syncope, weakness - Related Data Previous Rx's Medication Instructions Recorded Last Taken Type Docusate Sodium [Colace] 100 mg PO BID #60 capsule 03/24/17 Unknown Rx Ferrous Sulfate [Feosol 325 MG tab] 325 mg PO BID #60 tablet 03/24/17 Unknown Rx Pantoprazole [Protonix TAB] 40 mg PO BID #30 day 03/24/17 Unknown Rx Allergies Allergy/AdvReac Type Severity Reaction Status Date / Time No Known Allergies Allergy Verified 04/09/15 13:02 ED Review of Systems ROS: Stated complaint: DIZZINESS Other details as noted in HPI Comment: All other systems reviewed and negative Constitutional: denies: chills, fever Eyes: denies: eye pain, eye discharge, vision change ENT: denies: ear pain, throat pain Respiratory: denies: cough, shortness of breath, wheezing Cardiovascular: denies: chest pain, palpitations Endocrine: no symptoms reported Gastrointestinal: denies: abdominal pain, nausea, diarrhea Genitourinary: denies: urgency, dysuria Musculoskeletal: denies: back pain, joint swelling, arthralgia Skin: denies: rash, lesions Neurological: denies: headache, weakness, paresthesias Psychiatric: denies: anxiety, depression Hematological/Lymphatic: denies: easy bleeding, easy bruising ED Past Medical Hx - Past Medical History Previous Medical History?: Yes Hx Hypertension: No Hx Congestive Heart Failure: No Hx Diabetes: Yes Hx Sickle Cell Disease: No Hx Seizures: No Hx Asthma: No Hx COPD: No Hx Dementia: No Hx HIV: No - Surgical History Past Surgical History?: No - Family History Family history: no significant, diabetes - Social History Smoking Status: Never Smoker Substance Use Type: None - Medications Home Medications: Home Medications Medication Instructions Recorded Confirmed Last Taken Type Docusate Sodium [Colace] 100 mg PO BID #60 capsule 03/24/17 Unknown Rx Ferrous Sulfate [Feosol 325 MG tab] 325 mg PO BID #60 tablet 03/24/17 Unknown Rx Pantoprazole [Protonix TAB] 40 mg PO BID #30 day 03/24/17 Unknown Rx ED Physical Exam - General Limitations: No Limitations General appearance: alert, in no apparent distress - Head Head exam: Present: atraumatic, normocephalic - Eye Eye exam: Present: normal appearance - ENT ENT exam: Present: mucous membranes moist - Neck Neck exam: Present: normal inspection - Respiratory Respiratory exam: Present: normal lung sounds bilaterally. Absent: respiratory distress - Cardiovascular Cardiovascular Exam: Present: regular rate, normal rhythm. Absent: systolic murmur, diastolic murmur, rubs, gallop - GI/Abdominal GI/Abdominal exam: Present: soft, normal bowel sounds - Rectal Rectal exam: Present: normal inspection, normal rectal tone, heme (-) stool - Extremities Exam Extremities exam: Present: normal inspection - Back Exam Back exam: Present: normal inspection - Neurological Exam Neurological exam: Present: alert, oriented X3 - Psychiatric Psychiatric exam: Present: normal affect, normal mood - Skin Skin exam: Present: warm, dry, intact, normal color. Absent: rash ED Course Vital Signs 06/26/17 06/26/17 06/26/17 13:27 13:28 13:30 Pulse Rate 89 85 84 Respiratory 15 18 16 Rate Blood Pressure 114/56 124/60 Blood Pressure 114/60 [Left] O2 Sat by Pulse 100 100 100 Oximetry 06/26/17 06/26/17 06/26/17 13:45 14:00 14:15 Pulse Rate 83 88 90 Respiratory 17 16 17 Rate Blood Pressure 124/60 117/52 117/52 Blood Pressure [Left] O2 Sat by Pulse 100 Oximetry 06/26/17 06/26/17 06/26/17 14:30 14:46 15:00 Pulse Rate 95 H 92 H 93 H Respiratory 14 19 16 Rate Blood Pressure 115/48 117/52 119/59 Blood Pressure [Left] O2 Sat by Pulse 100 100 100 Oximetry 06/26/17 06/26/17 06/26/17 15:16 15:30 15:46 Pulse Rate 91 H 97 H 95 H Respiratory 15 17 14 Rate Blood Pressure 119/59 117/56 117/56 Blood Pressure [Left] O2 Sat by Pulse 100 100 100 Oximetry 06/26/17 06/26/17 06/26/17 16:00 16:16 16:30 Pulse Rate 98 H 92 H 102 H Respiratory 18 15 14 Rate Blood Pressure 122/64 122/64 113/68 Blood Pressure [Left] O2 Sat by Pulse 100 100 100 Oximetry 06/26/17 06/26/17 16:46 17:03 Pulse Rate 109 H Respiratory 13 16 Rate Blood Pressure 113/68 Blood Pressure [Left] O2 Sat by Pulse 98 Oximetry - Reevaluation(s) Reevaluation #1: Discussed case with hospitalist. Hospitalist agreed to admit. Discussed plan of care with patient and admission. Patient agreed to admission. 06/26/17 18:17 ED Medical Decision Making - Lab Data Result diagrams: 06/26/17 14:55 06/26/17 14:55 Critical care attestation.: If time is entered above; I have spent that time in minutes in the direct care of this critically ill patient, excluding procedure time. ED Disposition Clinical Impression: Dizziness, Anemia, Anemia due to chronic blood loss, Lightheadedness Disposition: OP ADMIT IP TO THIS HOSP Is pt being admited?: Yes Does the pt Need Aspirin: No Condition: Serious Referrals: PRIMARY CARE, [Primary Care Provider] - 3-5 Days Time of Disposition: 18:17
[2017-06-26 15:07] LABS: Mean Corpuscular HGB Conc 27 % (32-34); Platelet Count 362 K/mm3 (140-440); Red Blood Count 3.79 M/mm3 (3.65-5.03)
[2017-06-26 15:10] LABS: Hematocrit 24.1 % (35.5-45.6); Hemoglobin 6.6 gm/dl (11.8-15.2); Mean Corpuscular Hemoglobin 17 pg (28-32); Mean Corpuscular Volume 64 fl (84-94)
[2017-06-26 15:11] LABS: Red Cell Distribution Width 21.1 % (13.2-15.2)
[2017-06-26 15:36] LABS: Alanine Aminotransferase 9 units/L (7-56); Albumin 4.3 g/dL (3.9-5); BUN/Creatinine Ratio 23; Blood Urea Nitrogen 16 mg/dL (9-20); Calcium 8.6 mg/dL (8.4-10.2); Hemolysis Index 1
[2017-06-26] MEDS ORDERED: NACL 0.9% 500 ML 500 ML IV ONE (22:02)
[2017-06-26] MEDS ORDERED: SODIUM CHLORIDE FLUSH SYRINGE 10 ML IV PRN (22:02)
[2017-06-26] MEDS ORDERED: TYLENOL PO PRN (22:02)
[2017-06-26] MEDS ORDERED: ZOFRAN IV PRN (22:02)
--- NOTE | 2017-06-26 22:06 | History and Physical Report ---
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 He denies any blood in his stool, black stool, weight loss, shortness of breath, chest pain Review of systems Constitutional: no weight loss, chills Ears, eyes, nose, mouth and throat: no nasal congestion, no nasal discharge, no sinus pressure, no vision change, no red eye. Neck: No neck pain or rigidity. Cardiovascular: no chest pain, palpitations Respiratory: No cough, shortness of breath Gastrointestinal: no abdominal pain, hematochezia Genitourinary : no dysuria, frequency , no hematuria Musculoskeletal: no joint swelling or muscle ache Integumentary: no rash, no pruritis Neurological: no parathesias, no numbness, no focal weakness Endocrine: no cold or heat intolerance, no polyuria or polydipsia Hematologic/Lymphatic: no easy bruising, no easy bleeding, no gland swelling Allergic/Immunologic: no urticaria, no angioedema. PAST MEDICAL HISTORY: AVM, anemia PAST SURGICAL HISTORY: None SOCIAL HISTORY: Denies alcohol, tobacco, drugs FAMILY HISTORY: Hypertension Medications and Allergies Allergies Allergy/AdvReac Type Severity Reaction Status Date / Time No Known Allergies Allergy Verified 04/09/15 13:02 Home Medications Medication Instructions Recorded Confirmed Last Taken Type Docusate Sodium [Colace] 100 mg PO BID #60 capsule 03/24/17 06/26/17 Unknown Rx Ferrous Sulfate [Feosol 325 MG tab] 325 mg PO BID #60 tablet 03/24/17 06/26/17 Unknown Rx Pantoprazole [Protonix TAB] 40 mg PO BID #30 day 03/24/17 06/26/17 Unknown Rx Exam - Physical Exam Narrative exam: Gen. appearance: Patient lying in bed, no apparent distress HEENT: Normocephalic, atraumatic, pupils equally round and reactive to light, extraocular movement intact, and no sclericterus,. No JVD or thyromegaly or nodule,neck supple, no carotid bruit ,mucous membranes moist, no exudate or erythema Heart: S1, S2, regular rate and rhythm Lungs: Clear to auscultation bilaterally, breathing comfortable Abdomen: Positive bowel sounds, nontender, nondistended, no organomegaly Extremity: No edema, cyanosis, clubbing Skin: No rash, nodules, warm, dry Neuro: Oriented 3, cranial nerves II-12 intact, speech is fluent, motor and sensory intact Rectal: heme negative - Constitutional Vitals: Temp Pulse Resp BP Pulse Ox 97 H 11 L 129/71 100 06/26/17 21:46 06/26/17 21:46 06/26/17 21:46 06/26/17 21:46 Results - Labs CBC & Chem 7: 06/26/17 14:55 06/26/17 14:55 Labs: Abnormal lab results 06/26/17 06/26/17 06/26/17 Range/Units 14:55 14:55 16:39 WBC 3.7 L (4.5-11.0) K/mm3 Hgb 6.6 L (11.8-15.2) gm/dl Hct 24.1 L (35.5-45.6) % MCV 64 L (84-94) fl MCH 17 L (28-32) pg MCHC 27 L (32-34) % RDW 21.1 H (13.2-15.2) % Creatinine 0.7 L (0.8-1.5) mg/dL Glucose 102 H (75-100) mg/dL POC Glucose 109 H (70-105) Assessment and Plan Assessment Acute on chronic anemia History of multiple AVMs Plan Admit to medicine Transfuse packed red blood cells, premedicate prior to transfusion Consult GI, DVT prophylaxis
[2017-06-26] MEDS ORDERED: NACL 0.9% 500 ML 500 ML ONE (22:42)
[2017-06-26] MEDS ORDERED: BENADRYL IV PRN (22:49)
[2017-06-27] MEDS ORDERED: NACL 0.9% 500 ML 500 ML IV SCH (04:00)
--- NOTE | 2017-06-27 10:44 | Event Note ---
Date: 06/27/17 - full consult dictated - transfuse - no plans to scope at this time - will follow
--- NOTE | 2017-06-27 11:02 | Progress Note ---
Assessment and Plan Assessment and plan: Acute on chronic anemia. Etiology may be secondary to GI blood loss. Continue to monitor H&H after transfusion. GI consulted. No plans for endoscopy at this time. Patient may have further follow-up as an outpatient. History of multiple AVMs. History Interval history: No new issues overnight. No complaints of dizziness. Hospitalist Physical - Constitutional Vitals: Temp Pulse Resp BP Pulse Ox 98.2 F 82 18 136/73 100 06/27/17 08:08 06/27/17 08:08 06/27/17 08:08 06/27/17 08:08 06/27/17 08:08 General appearance: Present: no acute distress, well-nourished - EENT Eyes: Present: PERRL, EOM intact ENT: hearing intact, clear oral mucosa, dentition normal - Neck Neck: Present: supple, normal ROM - Respiratory Respiratory effort: normal Respiratory: bilateral: CTA - Cardiovascular Rhythm: regular Heart Sounds: Present: S1 & S2. Absent: gallop, rub - Extremities Extremities: no ischemia, No edema, Full ROM - Abdominal General gastrointestinal: soft, non-tender, non-distended, normal bowel sounds - Integumentary Integumentary: Present: clear, warm, dry - Neurologic Neurologic: CNII-XII intact, moves all extremities Results - Labs CBC & Chem 7: 06/26/17 14:55 06/26/17 14:55 Labs: Laboratory Last Values WBC 3.7 K/mm3 (4.5-11.0) L 06/26/17 14:55 RBC 3.79 M/mm3 (3.65-5.03) 06/26/17 14:55 Hgb 6.6 gm/dl (11.8-15.2) L 06/26/17 14:55 Hct 24.1 % (35.5-45.6) L 06/26/17 14:55 MCV 64 fl (84-94) L 06/26/17 14:55 MCH 17 pg (28-32) L 06/26/17 14:55 MCHC 27 % (32-34) L 06/26/17 14:55 RDW 21.1 % (13.2-15.2) H 06/26/17 14:55 Plt Count 362 K/mm3 (140-440) 06/26/17 14:55 Sodium 139 mmol/L (137-145) 06/26/17 14:55 Potassium 4.2 mmol/L (3.6-5.0) 06/26/17 14:55 Chloride 101.7 mmol/L (98-107) 06/26/17 14:55 Carbon Dioxide 23 mmol/L (22-30) 06/26/17 14:55 Anion Gap 19 mmol/L 06/26/17 14:55 BUN 16 mg/dL (9-20) 06/26/17 14:55 Creatinine 0.7 mg/dL (0.8-1.5) L 06/26/17 14:55 Estimated GFR > 60 ml/min 06/26/17 14:55 BUN/Creatinine Ratio 23 % 06/26/17 14:55 Glucose 102 mg/dL (75-100) H 06/26/17 14:55 POC Glucose 109 (70-105) H 06/26/17 16:39 Calcium 8.6 mg/dL (8.4-10.2) 06/26/17 14:55 Total Bilirubin 0.50 mg/dL (0.1-1.2) 06/26/17 14:55 AST 15 units/L (5-40) 06/26/17 14:55 ALT 9 units/L (7-56) 06/26/17 14:55 Alkaline Phosphatase 86 units/L (35-129) 06/26/17 14:55 Total Protein 7.1 g/dL (6.3-8.2) 06/26/17 14:55 Albumin 4.3 g/dL (3.9-5) 06/26/17 14:55 Albumin/Globulin Ratio 1.5 % 06/26/17 14:55 Blood Type A POSITIVE 06/26/17 16:50 Antibody Screen Negative 06/26/17 16:50 Crossmatch See Detail 06/26/17 16:50
[2017-06-27 11:04] LABS: Hematocrit 24.7 % (35.5-45.6); Hemoglobin 7.8 gm/dl (11.8-15.2); Mean Corpuscular HGB Conc 32 % (32-34); Platelet Count 267 K/mm3 (140-440); Red Blood Count 3.77 M/mm3 (3.65-5.03)
[2017-06-27 11:12] LABS: Mean Corpuscular Volume 66 fl (84-94)
[2017-06-27 11:13] LABS: Mean Corpuscular Hemoglobin 21 pg (28-32); Red Cell Distribution Width 25.7 % (13.2-15.2)
[2017-06-27 11:31] LABS: BUN/Creatinine Ratio 23; Blood Urea Nitrogen 14 mg/dL (9-20); Calcium 8.2 mg/dL (8.4-10.2); Hemolysis Index 2
[2017-06-27 12:47] LABS: Anisocytosis 1+; Basophils % (Manual) 0 % (0.0-1.8); Hypochromasia 1+; Total Cells Counted 100
[2017-06-27 12:48] LABS: Platelet Estimate Consistent w Auto; Tear Drop Cells Few
--- NOTE | 2017-06-27 13:42 | Consultation ---
REFERRING PHYSICIAN: Ramsey Rader M.D. INDICATION: GI bleed. HISTORY OF PRESENT ILLNESS: The patient is a 61-year-old man with a history of anemia and AVM in the colon, presents with signs of GI bleed. The patient has had a colonoscopy showing AVMs throughout the colon, which have been treated in the past. The patient on last admission, he was told he may need a PillCam to rule out small bowel AVMs as an outpatient. The patient reports progressive shortness of breath with some dark stools. He denies any hematemesis or bright red blood per rectum. Denies any fevers or chills. He denies any weight loss. Denies any specific other complaints. The patient subsequently came to Emergency Room where he was noted to be anemic and admitted and GI consulted. PAST MEDICAL HISTORY: AVM. MEDICATIONS: See chart. ALLERGIES: No known drug allergies. SOCIAL HISTORY: Denies alcohol, tobacco, or IV drug abuse. FAMILY HISTORY: Negative for colon cancer, IBD, or liver disease. REVIEW OF SYSTEMS: GENERAL: Reports mild weakness. HEENT: No visual complaints or tinnitus. PULMONARY: No shortness of breath. CARDIOVASCULAR: No chest pain. GASTROINTESTINAL: Reports occasional dark stools. All points of 13-point review of systems, otherwise negative. PHYSICAL EXAMINATION: VITAL SIGNS: Temperature of 98.2, pulse 82, respirations 18, blood pressure 136/73. GENERAL: Fairly nourished black male, in no acute distress. HEENT: Pupils equal, round and reactive. PULMONARY: Clear to auscultation bilaterally. CARDIOVASCULAR: Regular rhythm. Normal S1, S2. ABDOMEN: Positive bowel sounds, soft. SKIN: No obvious rashes. LABORATORY DATA: Labs pertinent for white count of 3.7, hemoglobin and hematocrit of 6.6 and 24.1, platelet count 362. Chem-7 within normal limits. LFTs within normal limits. ASSESSMENT AND PLAN: A 61-year-old male with a known history of multiple lower GI AVMs, now presents for anemia. The patient was supposed to get a PillCam as an outpatient. I suspect AVM bleed, either from the colon where he is known to have AVMs from small bowel. At this time, he showed no active bleeding. Management as noted below. PLAN: 1. We will review office chart. 2. Transfuse as ordered. 3. PPI b.i.d. and iron therapy. 4. Would hold on colonoscopy or endoscopic evaluation at this time. 4. We will follow further recommendation based on progress. JOB# [id number] CAB/NTS
[2017-06-27] MEDS: SODIUM CHLORIDE FLUSH SYRINGE 10 ML IV SCH ×2 (17:41→22:51)
[2017-06-28 07:39] VITALS: BP 135/76
--- NOTE | 2017-06-28 09:19 | Discharge Summary ---
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 The patient has a significant past medical history of GI AVMs. Patient was admitted with diagnosis of symptomatic anemia. The patient received PRBCs with stabilization of H&H. The patient was seen by GI consultation who recommended no colonoscopy or endoscopic evaluation at this time. GI suspects AVM bleed but patient showing no active bleeding presently. Therefore, patient will be followed up as an outpatient. Patient was supposed to have a PillCam as outpatient which he was counseled to obtain. The patient will receive PPI twice a day and iron therapy. Dedicated discharge time 32 minutes. Disposition: DC- TO HOME OR SELFCARE Time spent for discharge: 32 - Discharge Diagnoses (1) Dizziness Status: Acute (2) Lightheadedness Status: Acute (3) Anemia Status: Chronic (4) Anemia due to chronic blood loss Status: Chronic (5) GI bleed Status: Acute Core Measure Documentation - Palliative Care Palliative Care/ Comfort Measures: Not Applicable - Core Measures Any of the following diagnoses?: none Exam - Constitutional Vitals: Temp Pulse Resp BP Pulse Ox 98.4 F 89 18 135/76 99 06/28/17 07:00 06/28/17 07:00 06/28/17 07:00 06/28/17 07:00 06/28/17 07:00 General appearance: Present: no acute distress, well-nourished - EENT Eyes: Present: PERRL ENT: hearing intact, clear oral mucosa - Neck Neck: Present: supple, normal ROM - Respiratory Respiratory effort: normal Respiratory: bilateral: CTA - Cardiovascular Heart Sounds: Present: S1 & S2. Absent: rub, click - Extremities Extremities: pulses symmetrical, No edema Peripheral Pulses: within normal limits - Abdominal General gastrointestinal: Present: soft, non-tender, non-distended, normal bowel sounds Male genitourinary: Present: normal - Integumentary Integumentary: Present: clear, warm, dry - Musculoskeletal Musculoskeletal: gait normal, strength equal bilaterally - Psychiatric Psychiatric: appropriate mood/affect, intact judgment & insight - Neurologic Neurologic: CNII-XII intact, moves all extremities Plan Activity: no restrictions Weight Bearing Status: Full Weight Bearing Diet: regular Follow up with: PRIMARY CARE, [Primary Care Provider] - 3-5 Days MILANA SHEEHAN MD [Staff Physician] - 7 Days Prescriptions: Ferrous Sulfate [Feosol 325 MG tab] 325 mg PO BID #60 tablet Pantoprazole [Protonix TAB] 40 mg PO BID #30 day
[2017-06-28 11:21] LABS: Basophils % (Auto) 0.7 % (0.0-1.8); Eosinophils # (Auto) 0.1 K/mm3 (0.0-0.4); Eosinophils % (Auto) 3.1 % (0.0-4.3); Hematocrit 25.8 % (35.5-45.6); Hemoglobin 7.8 gm/dl (11.8-15.2); Lymphocytes # (Auto) 1.1 K/mm3 (1.2-5.4); Lymphocytes % (Auto) 24.5 % (13.4-35.0); Mean Corpuscular HGB Conc 30 % (32-34); Monocytes # (Auto) 0.4 K/mm3 (0.0-0.8); Platelet Count 229 K/mm3 (140-440); Red Blood Count 3.83 M/mm3 (3.65-5.03)
[2017-06-28 11:29] LABS: Mean Corpuscular Hemoglobin 20 pg (28-32); Mean Corpuscular Volume 68 fl (84-94)
[2017-06-28 11:40] LABS: BUN/Creatinine Ratio 18; Blood Urea Nitrogen 11 mg/dL (9-20); Calcium 8.7 mg/dL (8.4-10.2); Hemolysis Index 2
--- NOTE | 2017-06-28 12:52 | Gastroenterology Progress Note ---
Assessment and Plan GI: pt h/o AVM presented w/ anemia now stable - diet as tolerated - pill cam as outpt - ok to d/c from GI standpoint, will sign off, call if needed Subjective Date of service: 06/28/17 Interval history: - no signs bleeding overnight Objective - Constitutional Vitals: Temp Pulse Resp BP Pulse Ox 98.4 F 89 18 135/76 99 06/28/17 07:00 06/28/17 07:00 06/28/17 07:00 06/28/17 07:00 06/28/17 07:00 General appearance: no acute distress - Respiratory Respiratory: bilateral: CTA - Cardiovascular Rhythm: regular Heart Sounds: Present: S1 & S2 - Gastrointestinal General gastrointestinal: Present: soft, non-tender, non-distended - Labs CBC & Chem 7: 06/28/17 10:27 06/28/17 10:27 Labs: Laboratory Results - last 24 hr 06/28/17 06/28/17 10:27 10:27 WBC 4.4 L RBC 3.83 Hgb 7.8 L Hct 25.8 L MCV 68 L MCH 20 L MCHC 30 L RDW 25.0 H Plt Count 229 Lymph % (Auto) 24.5 [place] % (Auto) 9.0 H Eos % (Auto) 3.1 Baso % (Auto) 0.7 Lymph # 1.1 L [place] # 0.4 Eos # 0.1 Baso # 0.0 Seg Neutrophils % 62.7 Seg Neutrophils # 2.7 Sodium 140 Potassium 4.1 Chloride 102.6 Carbon Dioxide 28 Anion Gap 14 BUN 11 Creatinine 0.6 L Estimated GFR > 60 BUN/Creatinine Ratio 18 Glucose 90 Calcium 8.7
[2017-06-28] MEDS: SODIUM CHLORIDE FLUSH SYRINGE 10 ML IV SCH (13:59)
== END 2017-06-28 14:39 | disposition home or self-care (01) | DRG 379 ==
LOC: ED 12:31 → 3A 22:02
PROVIDERS: ADMIT Internal Medicine; ATTEND Hospitalist
DX: K92.2 Gastrointestinal hemorrhage, unspecified (principal); D50.0 Iron deficiency anemia secondary to blood loss (chronic); E11.9 Type 2 diabetes mellitus without complications; Z82.49 Family history of ischemic heart disease and other diseases of the circulatory system; Z79.899 Other long term (current) drug therapy
CPT/HCPCS: 36415; 36430; 80048; 80053; 82962; 85007; 85025; 85027; 86850; 86900; 86901; 86920; 93005; 93010; 99285; J7040; P9016

== ENCOUNTER 2017-07-28 14:53 | Inpatient (IN) | payer SELFPAY ==
[2017-07-28] MEDS ORDERED: ASPIRIN PO ONE (15:06)
[2017-07-28] MEDS ORDERED: NACL 0.9% 1000 ML 1,000 ML IV ONE (15:21)
[2017-07-28 15:40] LABS: Hematocrit 21.1 % (35.5-45.6); Hemoglobin 6.1 gm/dl (11.8-15.2); Mean Corpuscular HGB Conc 29 % (32-34); Platelet Count 377 K/mm3 (140-440); Red Blood Count 3.33 M/mm3 (3.65-5.03)
[2017-07-28 15:41] LABS: Mean Corpuscular Hemoglobin 18 pg (28-32); Mean Corpuscular Volume 63 fl (84-94)
[2017-07-28 15:42] LABS: Basophils % (Auto) 0.8 % (0.0-1.8); Eosinophils % (Auto) 0.5 % (0.0-4.3); Lymphocytes # (Auto) 1.5 K/mm3 (1.2-5.4); Lymphocytes % (Auto) 42.8 % (13.4-35.0); Monocytes # (Auto) 0.2 K/mm3 (0.0-0.8); Monocytes % (Auto) 6.5 % (0.0-7.3)
[2017-07-28 16:14] LABS: INR 0.96 (0.87-1.13)
[2017-07-28 16:15] LABS: Partial Thromboplastin Time 30.7 Sec. (24.2-36.6)
[2017-07-28 16:29] LABS: Alanine Aminotransferase 10 units/L (7-56); Albumin 4.6 g/dL (3.9-5); BUN/Creatinine Ratio 21; Blood Urea Nitrogen 15 mg/dL (9-20); Calcium 9.1 mg/dL (8.4-10.2); Hemolysis Index 2; Lipase 11 units/L (13-60)
[2017-07-28] MEDS ORDERED: NACL 0.9% 500 ML 500 ML IV ONE (21:55)
--- NOTE | 2017-07-28 22:00 | Emergency Department Report ---
ED Dizziness HPI - General Chief Complaint: Dizziness Stated Complaint: DIZZY Time Seen by Provider: 07/28/17 21:37 Source: patient, old records reviewed (admitted mar and june this year for symptomatic anemia and blood transfusion. Endoscopy and colonoscopy performed in Mar 2017 showed multiple AVMs at least 15 lesions of the proximal that and colon that were ablated) Mode of arrival: Ambulatory Limitations: No Limitations - History of Present Illness Initial Comments: 61-year-old male with a past medical history of recurrent anemia requiring blood transfusion, AVMs with hemorrhage, hep C, and type 2 diabetes presents to the hospital complaining of dizziness 2 days. Didn't describe the lightheadedness worse with sitting up and lying position. Patient denies shortness of breath, syncope, chest pain, or fatigue. Similar symptoms in the past with symptomatic anemia requiring blood transfusion. Patient denies melena , hematochezia, hematemesis, aspirin, Motrin, Aleve, or other blood thinner use. Patient's most recent admission for blood transfusion was and June. Patient was discharged on iron tablets and PPI but he is not compliant with these medications. Previous record reviewed patient had endoscopy in March and sure multiple AVMs. As per discharge summary in June patient was to arrange outpatient pill camera evaluation. patient does not have a primary care doctor - Related Data Previous Rx's Medication Instructions Recorded Last Taken Type Docusate Sodium [Colace CAP] 100 mg PO BID #60 capsule 03/24/17 Unknown Rx Ferrous Sulfate [Feosol 325 MG tab] 325 mg PO BID #60 tablet 06/28/17 Unknown Rx Pantoprazole [Protonix TAB] 40 mg PO BID #30 day 06/28/17 Unknown Rx Allergies Allergy/AdvReac Type Severity Reaction Status Date / Time No Known Allergies Allergy Verified 04/09/15 13:02 ED Review of Systems ROS: Stated complaint: DIZZY Other details as noted in HPI Comment: All other systems reviewed and negative ED Past Medical Hx - Past Medical History Previous Medical History?: Yes Hx Hypertension: No Hx Congestive Heart Failure: No Hx Diabetes: Yes (TYPE II) Hx Sickle Cell Disease: No Hx Seizures: No Hx Asthma: No Hx COPD: No Hx Dementia: No Hx HIV: No Additional medical history: ANEMIA. Proximal gut and multiple colon AVM's ( endoscopy/colonoscopy March 2017). hep C - Surgical History Past Surgical History?: No - Social History Smoking Status: Current Every Day Smoker Substance Use Type: None - Medications Home Medications: Home Medications Medication Instructions Recorded Confirmed Last Taken Type Docusate Sodium [Colace CAP] 100 mg PO BID #60 capsule 03/24/17 06/26/17 Unknown Rx Ferrous Sulfate [Feosol 325 MG tab] 325 mg PO BID #60 tablet 06/28/17 Unknown Rx Pantoprazole [Protonix TAB] 40 mg PO BID #30 day 06/28/17 Unknown Rx ED Physical Exam - General Limitations: No Limitations - Other Other exam information: General: No limitations, patient is alert in no acute distress Head exam: Atraumatic, normocephalic Eyes exam: Normal appearance ENT: Moist mucous membrane, normal oropharynx Neck exam: Normal inspection, full range of motion, no meningismus nontender Respiratory exam: Clear to auscultation bilateral, no wheezes, rales, crackles Cardiovascular: Normal rate and rhythm, normal heart sounds Abdomen: Soft, nondistended, and nontender, with normal bowel sounds, no rebound, or guarding Rectal: Guaiac positive stool, no melena, no gross blood Extremity: Full range of motion normal inspection no deformity Back: Normal Inspection, full range of motion, no tenderness Neurologic: Alert, oriented x3, cranial nerves intact, no motor or sensory deficit Psychiatric: normal affect, normal mood Skin: Warm, dry, intact ED Course Vital Signs 07/28/17 07/28/17 07/28/17 15:02 21:52 21:59 Temperature 97.6 F 98.3 F Pulse Rate 95 H 97 H 96 H Respiratory 20 16 16 Rate Blood Pressure 92/50 Blood Pressure 144/77 [Left] O2 Sat by Pulse 96 100 100 Oximetry 07/28/17 07/28/17 22:00 22:16 Temperature Pulse Rate 95 H 98 H Respiratory 14 17 Rate Blood Pressure 127/78 144/77 Blood Pressure [Left] O2 Sat by Pulse 100 Oximetry ED Medical Decision Making - Lab Data Result diagrams: 07/28/17 15:31 07/28/17 15:31 Lab Results 07/28/17 07/28/17 07/28/17 Range/Units 15:31 15:31 15:31 WBC 3.5 L (4.5-11.0) K/mm3 RBC 3.33 L (3.65-5.03) M/mm3 Hgb 6.1 L (11.8-15.2) gm/dl Hct 21.1 L (35.5-45.6) % MCV 63 L (84-94) fl MCH 18 L (28-32) pg MCHC 29 L (32-34) % RDW 24.0 H (13.2-15.2) % Plt Count 377 (140-440) K/mm3 Lymph % (Auto) 42.8 H (13.4-35.0) % [place] % (Auto) 6.5 (0.0-7.3) % Eos % (Auto) 0.5 (0.0-4.3) % Baso % (Auto) 0.8 (0.0-1.8) % Lymph # 1.5 (1.2-5.4) K/mm3 [place] # 0.2 (0.0-0.8) K/mm3 Eos # 0.0 (0.0-0.4) K/mm3 Baso # 0.0 (0.0-0.1) K/mm3 Seg Neutrophils % 49.4 (40.0-70.0) % Seg Neutrophils # 1.7 L (1.8-7.7) K/mm3 PT 13.3 (12.2-14.9) Sec. INR 0.96 (0.87-1.13) APTT 30.7 (24.2-36.6) Sec. Sodium 136 L (137-145) mmol/L Potassium 4.5 (3.6-5.0) mmol/L Chloride 95.7 L (98-107) mmol/L Carbon Dioxide 23 (22-30) mmol/L Anion Gap 22 mmol/L BUN 15 (9-20) mg/dL Creatinine 0.7 L (0.8-1.5) mg/dL Estimated GFR > 60 ml/min BUN/Creatinine Ratio 21 % Glucose 164 H (75-100) mg/dL Calcium 9.1 (8.4-10.2) mg/dL Total Bilirubin 0.80 (0.1-1.2) mg/dL AST 17 (5-40) units/L ALT 10 (7-56) units/L Alkaline Phosphatase 79 (35-129) units/L Total Protein 7.5 (6.3-8.2) g/dL Albumin 4.6 (3.9-5) g/dL Albumin/Globulin Ratio 1.6 % Lipase 11 L (13-60) units/L Blood Type Antibody Screen Crossmatch 07/28/17 Range/Units 15:31 WBC (4.5-11.0) K/mm3 RBC (3.65-5.03) M/mm3 Hgb (11.8-15.2) gm/dl Hct (35.5-45.6) % MCV (84-94) fl MCH (28-32) pg MCHC (32-34) % RDW (13.2-15.2) % Plt Count (140-440) K/mm3 Lymph % (Auto) (13.4-35.0) % [place] % (Auto) (0.0-7.3) % Eos % (Auto) (0.0-4.3) % Baso % (Auto) (0.0-1.8) % Lymph # (1.2-5.4) K/mm3 [place] # (0.0-0.8) K/mm3 Eos # (0.0-0.4) K/mm3 Baso # (0.0-0.1) K/mm3 Seg Neutrophils % (40.0-70.0) % Seg Neutrophils # (1.8-7.7) K/mm3 PT (12.2-14.9) Sec. INR (0.87-1.13) APTT (24.2-36.6) Sec. Sodium (137-145) mmol/L Potassium (3.6-5.0) mmol/L Chloride (98-107) mmol/L Carbon Dioxide (22-30) mmol/L Anion Gap mmol/L BUN (9-20) mg/dL Creatinine (0.8-1.5) mg/dL Estimated GFR ml/min BUN/Creatinine Ratio % Glucose (75-100) mg/dL Calcium (8.4-10.2) mg/dL Total Bilirubin (0.1-1.2) mg/dL AST (5-40) units/L ALT (7-56) units/L Alkaline Phosphatase (35-129) units/L Total Protein (6.3-8.2) g/dL Albumin (3.9-5) g/dL Albumin/Globulin Ratio % Lipase (13-60) units/L Blood Type A POSITIVE Antibody Screen Negative Crossmatch See Detail - EKG Data -: EKG Interpreted by Me EKG shows normal: sinus rhythm, axis (qrs -43 ), QRS complexes (qrsd 92), ST-T waves (no stemi) Rate: normal - EKG Data When compared to previous EKG there are: no significant change - Medical Decision Making Symptomatic anemia Iron studies pending Guaiac positive stool but brown without gross blood 2 units PRBCs ordered Repeat blood pressure normal range Plan to admit for further management - Differential Diagnosis iron deficiency anemia, GI bleed, dehydration, arrhythmia Critical Care Time: No Critical care attestation.: If time is entered above; I have spent that time in minutes in the direct care of this critically ill patient, excluding procedure time. ED Disposition Clinical Impression: Symptomatic anemia, History of hepatitis C, Lightheadedness, Guaiac + stool, Iron deficiency Disposition: OP ADMIT IP TO THIS HOSP Is pt being admited?: Yes Condition: Stable Time of Disposition: 22:12 (Dr Willis/hosp)
[2017-07-28 22:35] LABS: Albumin 4.6 g/dL (3.9-5); Bilirubin,Direct 0.2 mg/dL (0-0.2)
[2017-07-28 22:49] LABS: % Iron Saturation 1.77 %
[2017-07-28] MEDS ORDERED: TYLENOL PO PRN (23:21)
[2017-07-28] MEDS ORDERED: ZOFRAN IV PRN (23:21)
[2017-07-28] MEDS ORDERED: SODIUM CHLORIDE FLUSH SYRINGE 10 ML IV PRN (23:21)
--- NOTE | 2017-07-28 23:21 | History and Physical Report ---
History of Present Illness Date of examination: 07/28/17 History of present illness: 61-year-old man with a history of anemia, AVM, had a recent colonoscopy and EGD which shows multiple AVMs in the ascending, transverse, descending and proximal gut, comes to emergency room today with complaints of dizziness especially with standing. Also complain of generalized weakness, feeling tired. He denies any blood in his stool, black stool Review of systems Constitutional: no weight loss, chills Ears, eyes, nose, mouth and throat: no nasal congestion, no nasal discharge, no sinus pressure, no vision change, no red eye. Neck: No neck pain or rigidity. Cardiovascular: no chest pain, palpitations Respiratory: No cough, shortness of breath Gastrointestinal: no abdominal pain, hematochezia Genitourinary : no dysuria, frequency , no hematuria Musculoskeletal: no joint swelling or muscle ache Integumentary: no rash, no pruritis Neurological: no parathesias, no numbness, no focal weakness Endocrine: no cold or heat intolerance, no polyuria or polydipsia Hematologic/Lymphatic: no easy bruising, no easy bleeding, no gland swelling Allergic/Immunologic: no urticaria, no angioedema. PAST MEDICAL HISTORY: AVM, anemia PAST SURGICAL HISTORY: None SOCIAL HISTORY: Denies alcohol, tobacco, drugs FAMILY HISTORY: Hypertension Medications and Allergies Allergies Allergy/AdvReac Type Severity Reaction Status Date / Time No Known Allergies Allergy Verified 04/09/15 13:02 Home Medications Medication Instructions Recorded Confirmed Last Taken Type No Known Home Medications [No 07/28/17 07/28/17 Unknown History Reported Home Medications] Exam - Physical Exam Narrative exam: Gen. appearance: Patient lying in bed, no apparent distress HEENT: Normocephalic, atraumatic, pupils equally round and reactive to light, extraocular movement intact, and no sclericterus,. No JVD or thyromegaly or nodule,neck supple, no carotid bruit ,mucous membranes moist, no exudate or erythema Heart: S1, S2, regular rate and rhythm Lungs: Clear to auscultation bilaterally, breathing comfortable Abdomen: Positive bowel sounds, nontender, nondistended, no organomegaly Extremity: No edema, cyanosis, clubbing Skin: No rash, nodules, warm, dry Neuro: Oriented 3, cranial nerves II-12 intact, speech is fluent, motor and sensory intact Rectal: heme positive - Constitutional Vitals: Temp Pulse Resp BP Pulse Ox 98.3 F 98 H 17 144/77 100 07/28/17 21:59 07/28/17 22:16 07/28/17 22:16 07/28/17 22:16 07/28/17 22:00 Results - Labs CBC & Chem 7: 07/28/17 15:31 07/28/17 15:31 Labs: Abnormal lab results 07/28/17 07/28/17 07/28/17 Range/Units 15:31 15:31 15:31 WBC 3.5 L (4.5-11.0) K/mm3 RBC 3.33 L (3.65-5.03) M/mm3 Hgb 6.1 L (11.8-15.2) gm/dl Hct 21.1 L (35.5-45.6) % MCV 63 L (84-94) fl MCH 18 L (28-32) pg MCHC 29 L (32-34) % RDW 24.0 H (13.2-15.2) % Lymph % (Auto) 42.8 H (13.4-35.0) % Seg Neutrophils # 1.7 L (1.8-7.7) K/mm3 Sodium 136 L (137-145) mmol/L Chloride 95.7 L (98-107) mmol/L Creatinine 0.7 L (0.8-1.5) mg/dL Glucose 164 H (75-100) mg/dL Iron (49-181) ug/dL TIBC (250-450) mcg/dL Transferrin (180-329) mg/dl Lipase 11 L (13-60) units/L Crossmatch See Detail 07/28/17 Range/Units 22:02 WBC (4.5-11.0) K/mm3 RBC (3.65-5.03) M/mm3 Hgb (11.8-15.2) gm/dl Hct (35.5-45.6) % MCV (84-94) fl MCH (28-32) pg MCHC (32-34) % RDW (13.2-15.2) % Lymph % (Auto) (13.4-35.0) % Seg Neutrophils # (1.8-7.7) K/mm3 Sodium (137-145) mmol/L Chloride (98-107) mmol/L Creatinine (0.8-1.5) mg/dL Glucose (75-100) mg/dL Iron 11 L (49-181) ug/dL TIBC 623 H (250-450) mcg/dL Transferrin 515 H (180-329) mg/dl Lipase (13-60) units/L Crossmatch Assessment and Plan Assessment GI bleed Acute on chronic anemia History of multiple AVMs Plan Admit to medicine Transfuse packed red blood cells, check iron studies Consult GI, DVT prophylaxis
[2017-07-28] MEDS ORDERED: BENADRYL IV PRN (23:31)
[2017-07-29] MEDS ORDERED: NACL 0.9% 500 ML 500 ML ONE (00:04)
[2017-07-29 08:44] LABS: Hematocrit 24.3 % (35.5-45.6); Hemoglobin 7.7 gm/dl (11.8-15.2); Mean Corpuscular HGB Conc 32 % (32-34); Platelet Count 228 K/mm3 (140-440); Red Blood Count 3.49 M/mm3 (3.65-5.03)
[2017-07-29 08:50] VITALS: BP 136/72
[2017-07-29 09:12] LABS: BUN/Creatinine Ratio 32; Blood Urea Nitrogen 16 mg/dL (9-20); Calcium 8.7 mg/dL (8.4-10.2); Hemolysis Index 11
[2017-07-29 09:14] LABS: Mean Corpuscular Hemoglobin 22 pg (28-32); Mean Corpuscular Volume 70 fl (84-94); Red Cell Distribution Width 28.4 % (13.2-15.2)
[2017-07-29] MEDS ORDERED: SODIUM CHLORIDE FLUSH SYRINGE 10 ML IV SCH (10:00)
--- NOTE | 2017-07-29 10:06 | Progress Note ---
Hospitalist Physical - Constitutional Vitals: Temp Pulse Resp BP Pulse Ox 98.4 F 86 20 136/72 100 07/29/17 08:30 07/29/17 08:30 07/29/17 08:30 07/29/17 08:30 07/29/17 08:30 Results - Labs CBC & Chem 7: 07/29/17 07:59 07/29/17 07:59 Labs: Laboratory Last Values WBC 4.1 K/mm3 (4.5-11.0) L 07/29/17 07:59 RBC 3.49 M/mm3 (3.65-5.03) L 07/29/17 07:59 Hgb 7.7 gm/dl (11.8-15.2) L 07/29/17 07:59 Hct 24.3 % (35.5-45.6) L 07/29/17 07:59 MCV 70 fl (84-94) L 07/29/17 07:59 MCH 22 pg (28-32) L 07/29/17 07:59 MCHC 32 % (32-34) 07/29/17 07:59 RDW 28.4 % (13.2-15.2) H 07/29/17 07:59 Plt Count 228 K/mm3 (140-440) 07/29/17 07:59 Lymph % (Auto) 42.8 % (13.4-35.0) H 07/28/17 15:31 [place] % (Auto) 6.5 % (0.0-7.3) 07/28/17 15:31 Eos % (Auto) 0.5 % (0.0-4.3) 07/28/17 15:31 Baso % (Auto) 0.8 % (0.0-1.8) 07/28/17 15:31 Lymph # 1.5 K/mm3 (1.2-5.4) 07/28/17 15:31 [place] # 0.2 K/mm3 (0.0-0.8) 07/28/17 15:31 Eos # 0.0 K/mm3 (0.0-0.4) 07/28/17 15:31 Baso # 0.0 K/mm3 (0.0-0.1) 07/28/17 15:31 Seg Neutrophils % 49.4 % (40.0-70.0) 07/28/17 15:31 Seg Neutrophils # 1.7 K/mm3 (1.8-7.7) L 07/28/17 15:31 PT 13.3 Sec. (12.2-14.9) 07/28/17 15:31 INR 0.96 (0.87-1.13) 07/28/17 15:31 APTT 30.7 Sec. (24.2-36.6) 07/28/17 15:31 Sodium 141 mmol/L (137-145) 07/29/17 07:59 Potassium 4.1 mmol/L (3.6-5.0) 07/29/17 07:59 Chloride 101.3 mmol/L (98-107) 07/29/17 07:59 Carbon Dioxide 27 mmol/L (22-30) 07/29/17 07:59 Anion Gap 17 mmol/L 07/29/17 07:59 BUN 16 mg/dL (9-20) 07/29/17 07:59 Creatinine 0.5 mg/dL (0.8-1.5) L 07/29/17 07:59 Estimated GFR > 60 ml/min 07/29/17 07:59 BUN/Creatinine Ratio 32 % 07/29/17 07:59 Glucose 101 mg/dL (75-100) H 07/29/17 07:59 Calcium 8.7 mg/dL (8.4-10.2) 07/29/17 07:59 Iron 11 ug/dL (49-181) L 07/28/17 22:02 TIBC 623 mcg/dL (250-450) H 07/28/17 22:02 % Saturation 1.77 % 07/28/17 22:02 Transferrin 515 mg/dl (180-329) H 07/28/17 22:02 Total Bilirubin 0.80 mg/dL (0.1-1.2) 07/28/17 15:31 Direct Bilirubin 0.2 mg/dL (0-0.2) 07/28/17 15:31 Indirect Bilirubin 0.6 mg/dL 07/28/17 15:31 AST 25 units/L (5-40) 07/28/17 15:31 ALT 10 units/L (7-56) 07/28/17 15:31 Alkaline Phosphatase 80 units/L (35-129) 07/28/17 15: Total Protein 7.4 g/dL (6.3-8.2) 07/28/17 15: Albumin 4.6 g/dL (3.9-5) 07/28/17 15: Albumin/Globulin Ratio 1.6 % 07/28/17 15: Lipase 11 units/L (13-60) L 07/28/17 15: Blood Type A POSITIVE 07/28/17 15: Antibody Screen Negative 07/28/17: Crossmatch See Detail 07/28/17 15:
--- NOTE | 2017-07-29 10:21 | Gastroenterology Consultation ---
Addendum entered and electronically signed by KEYANA GALLEGO NP 07/29/17 12: 05: rectal exam revealed brown stool Original Note: <KEYANA GALLEGO - Last Filed: 07/29/17 10:53> History of Present Illness - Reason for Consult Consult date: 07/29/17 anemia, heme positive stool Requesting physician: JACQUELINE HAMMOND - History of Present Illness Patient is a 61 y/o male with PMH anemia, AVMs, hep C (s/p treatment), and DM who presented to ED with c/o weakness and dizziness. Upon admission H/H was found to be 6.1/21.1 with stool heme positive to which GI has been consulted. Patient is well known to our service. He has been seen by us since 2015 for a hx of TENNILLE due to AVMs. His last EGD/colonoscopy was done 03/2017 that revealed multiple AVMs in upper and lower GI tract that were ablated with APC. It was recommended that he have an outpatient pill camera to r/o small bowel AVMs, however pt did not follow up. This morning pt was resting in bed w/o acute distress. He denies any active signs of bleeding such as hematemesis, meleana, or hematochezia. Last BM was a couple of days ago with brown stool per pt. Denies CP, SOB, wt loss, abd pain, N/V, diarrhea, or constipation. No NSAID use. He has seen [facility] in the past for iron infusions but is currently off any iron supplements. Past History Past Medical History: anemia (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), diabetes, hepatitis (Hep C s/p treatment) Past Surgical History: No surgical history Social history: smoking Family history: hypertension Medications and Allergies Allergies Allergy/AdvReac Type Severity Reaction Status Date / Time No Known Allergies Allergy Verified 04/09/15 13:02 Home Medications Medication Instructions Recorded Confirmed Last Taken Type Ferrous Sulfate [Feosol 325 MG tab] 325 mg PO BID #60 tablet 07/29/17 Unknown Rx Pantoprazole [Protonix TAB] 40 mg PO QDAY #30 tablet 07/29/17 Unknown Rx Active Meds: Active Medications Acetaminophen (Tylenol) 650 mg PO Q4H PRN PRN Reason: Pain MILD(1-3)/Fever >100.5/DURÁN Diphenhydramine HCl (Benadryl) 25 mg IV Q6H PRN PRN Reason: Itching Ondansetron HCl (Zofran) 4 mg IV Q8H PRN PRN Reason: Nausea And Vomiting Sodium Chloride (Sodium Chloride Flush Syringe 10 Ml) 10 ml IV BID LUCIAN Sodium Chloride (Sodium Chloride Flush Syringe 10 Ml) 10 ml IV PRN PRN PRN Reason: LINE FLUSH Review of Systems - Review of Systems All systems: negative Constitutional: weakness Gastrointestinal: no hematemesis, no melena, no hematochezia Exam - Constitutional Vital Signs: Temp Pulse Resp BP Pulse Ox 98.4 F 86 20 136/72 100 07/29/17 08:30 07/29/17 08:30 07/29/17 08:30 07/29/17 08:30 07/29/17 08:30 General appearance: no acute distress - EENT Eyes: PERRL, EOM intact ENT: hearing intact - Respiratory Respiratory: bilateral: CTA - Cardiovascular Rhythm: regular Heart Sounds: Present: S1 & S2 - Gastrointestinal General gastrointestinal: Present: soft, non-tender, non-distended, normal bowel sounds - Neurologic Neurological: alert and oriented x3 - Labs CBC & Chem 7: 07/29/17 07:59 07/29/17 07:59 Lab Results: Laboratory Results - last 24 hr 07/28/17 07/28/17 07/28/17 15:31 15:31 15:31 WBC 3.5 L RBC 3.33 L Hgb 6.1 L Hct 21.1 L MCV 63 L MCH 18 L MCHC 29 L RDW 24.0 H Plt Count 377 Lymph % (Auto) 42.8 H [place] % (Auto) 6.5 Eos % (Auto) 0.5 Baso % (Auto) 0.8 Lymph # 1.5 [place] # 0.2 Eos # 0.0 Baso # 0.0 Seg Neutrophils % 49.4 Seg Neutrophils # 1.7 L PT 13.3 INR 0.96 APTT 30.7 Sodium 136 L Potassium 4.5 Chloride 95.7 L Carbon Dioxide 23 Anion Gap 22 BUN 15 Creatinine 0.7 L Estimated GFR > 60 BUN/Creatinine Ratio 21 Glucose 164 H Calcium 9.1 Iron TIBC % Saturation Transferrin Total Bilirubin 0.80 Direct Bilirubin Indirect Bilirubin AST 17 ALT 10 Alkaline Phosphatase 79 Total Protein 7.5 Albumin 4.6 Albumin/Globulin Ratio 1.6 Lipase 11 L Blood Type Antibody Screen Crossmatch 07/28/17 07/28/17 07/28/17 15:31 15:31 22:02 WBC RBC Hgb Hct MCV MCH MCHC RDW Plt Count Lymph % (Auto) [place] % (Auto) Eos % (Auto) Baso % (Auto) Lymph # [place] # Eos # Baso # Seg Neutrophils % Seg Neutrophils # PT INR APTT Sodium Potassium Chloride Carbon Dioxide Anion Gap BUN Creatinine Estimated GFR BUN/Creatinine Ratio Glucose Calcium Iron 11 L TIBC 623 H % Saturation 1.77 Transferrin 515 H Total Bilirubin 0.80 Direct Bilirubin 0.2 Indirect Bilirubin 0.6 AST 25 ALT 10 Alkaline Phosphatase 80 Total Protein 7.4 Albumin 4.6 Albumin/Globulin Ratio 1.6 Lipase Blood Type A POSITIVE Antibody Screen Negative Crossmatch See Detail 07/29/17 07/29/17 07:59 07:59 WBC 4.1 L RBC 3.49 L Hgb 7.7 L Hct 24.3 L MCV 70 L MCH 22 L MCHC 32 RDW 28.4 H Plt Count 228 Lymph % (Auto) [place] % (Auto) Eos % (Auto) Baso % (Auto) Lymph # [place] # Eos # Baso # Seg Neutrophils % Seg Neutrophils # PT INR APTT Sodium 141 Potassium 4.1 Chloride 101.3 Carbon Dioxide 27 Anion Gap 17 BUN 16 Creatinine 0.5 L Estimated GFR > 60 BUN/Creatinine Ratio 32 Glucose 101 H Calcium 8.7 Iron TIBC % Saturation Transferrin Total Bilirubin Direct Bilirubin Indirect Bilirubin AST ALT Alkaline Phosphatase Total Protein Albumin Albumin/Globulin Ratio Lipase Blood Type Antibody Screen Crossmatch Assessment and Plan 1.anemia -HGB 7.7- s/p transfusion of 2 units PRBCs -continue to monitor H/H and transfuse as needed -hold blood thinning medications -no active signs of bleeding- HD stable -etiology- pt has a h/o chronic 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 -last EGD/colonoscopy 03/2017 showed multiple AVMs in proximal gut and in colon (ablated with APC) -no recommendations for a repeat endoscopic evaluation at this time unless overt bleeding develops -start on daily PPI and iron supplement BID -avoid NSAIDs -continue supportive care -pt okay to be d/c per a GI standpoint with follow up clinic appt within 2 weeks to schedule outpatient pill camera -discussed plan of care with pt with understanding voiced and office information with card given to pt -will sign off, please call if needed <SUSANA RAMOS R - Last Filed: 07/29/17 15:41> Medications and Allergies Active Meds: Active Medications Acetaminophen (Tylenol) 650 mg PO Q4H PRN PRN Reason: Pain MILD(1-3)/Fever >100.5/DURÁN Diphenhydramine HCl (Benadryl) 25 mg IV Q6H PRN PRN Reason: Itching Ferrous Sulfate (Feosol) 325 mg PO BID [facility] Last Admin: 07/29/17 12:40 Dose: 325 mg Ondansetron HCl (Zofran) 4 mg IV Q8H PRN PRN Reason: Nausea And Vomiting Pantoprazole Sodium (Protonix) 40 mg PO QDAY [facility] Last Admin: 07/29/17 12:40 Dose: 40 mg Sodium Chloride (Sodium Chloride Flush Syringe 10 Ml) 10 ml IV BID [facility] Last Admin: 07/29/17 12:40 Dose: 10 ml Sodium Chloride (Sodium Chloride Flush Syringe 10 Ml) 10 ml IV PRN PRN PRN Reason: LINE FLUSH Exam - Constitutional Vital Signs: Temp Pulse Resp BP Pulse Ox 98.4 F 86 20 136/72 100 07/29/17 08:30 07/29/17 08:30 07/29/17 08:30 07/29/17 08:30 07/29/17 08:30 - Labs CBC & Chem 7: 07/29/17 07:59 07/29/17 07:59 Lab Results: Laboratory Results - last 24 hr 07/28/17 07/28/17 07/28/17 15:31 15:31 15:31 WBC 3.5 L RBC 3.33 L Hgb 6.1 L Hct 21.1 L MCV 63 L MCH 18 L MCHC 29 L RDW 24.0 H Plt Count 377 Lymph % (Auto) 42.8 H [place] % (Auto) 6.5 Eos % (Auto) 0.5 Baso % (Auto) 0.8 Lymph # 1.5 [place] # 0.2 Eos # 0.0 Baso # 0.0 Add Manual Diff Total Counted Seg Neutrophils % 49.4 Seg Neuts % (Manual) Band Neutrophils % Lymphocytes % (Manual) Reactive Lymphs % (Man) Monocytes % (Manual) Eosinophils % (Manual) Basophils % (Manual) Metamyelocytes % Myelocytes % Promyelocytes % Blast Cells % Nucleated RBC % Seg Neutrophils # 1.7 L Seg Neutrophils # Man Band Neutrophils # Lymphocytes # (Manual) Abs React Lymphs (Man) Monocytes # (Manual) Eosinophils # (Manual) Basophils # (Manual) Metamyelocytes # Myelocytes # Promyelocytes # Blast Cells # WBC Morphology Hypersegmented Neuts Hyposegmented Neuts Hypogranular Neuts Smudge Cells Toxic Granulation Toxic Vacuolation Dohle Bodies Pelger-Huet Anomaly Katia Rods Platelet Estimate Clumped Platelets Plt Clumps, EDTA Large Platelets Giant Platelets Platelet Satelliting Plt Morphology Comment RBC Morphology Dimorphic RBCs Polychromasia Hypochromasia Poikilocytosis Anisocytosis Microcytosis Macrocytosis Spherocytes Pappenheimer Bodies Sickle Cells Target Cells Tear Drop Cells Ovalocytes Stomatocytes Helmet Cells Su[place] Bodies [place] Rings [place] Cells Bite Cells Crenated Cell Elliptocytes Acanthocytes (Spur) Rouleaux Hemoglobin C Crystals Schistocytes Malaria parasites Jl Bodies Hem Pathologist Commnt PT 13.3 INR 0.96 APTT 30.7 Sodium 136 L Potassium 4.5 Chloride 95.7 L Carbon Dioxide 23 Anion Gap 22 BUN 15 Creatinine 0.7 L Estimated GFR > 60 BUN/Creatinine Ratio 21 Glucose 164 H POC Glucose Calcium 9.1 Iron TIBC % Saturation Transferrin Total Bilirubin 0.80 Direct Bilirubin Indirect Bilirubin AST 17 ALT 10 Alkaline Phosphatase 79 Total Protein 7.5 Albumin 4.6 Albumin/Globulin Ratio 1.6 Lipase 11 L Blood Type Antibody Screen Crossmatch 07/28/17 07/28/17 07/28/17 15:31 15:31 22:02 WBC RBC Hgb Hct MCV MCH MCHC RDW Plt Count Lymph % (Auto) [place] % (Auto) Eos % (Auto) Baso % (Auto) Lymph # [place] # Eos # Baso # Add Manual Diff Total Counted Seg Neutrophils % Seg Neuts % (Manual) Band Neutrophils % Lymphocytes % (Manual) Reactive Lymphs % (Man) Monocytes % (Manual) Eosinophils % (Manual) Basophils % (Manual) Metamyelocytes % Myelocytes % Promyelocytes % Blast Cells % Nucleated RBC % Seg Neutrophils # Seg Neutrophils # Man Band Neutrophils # Lymphocytes # (Manual) Abs React Lymphs (Man) Monocytes # (Manual) Eosinophils # (Manual) Basophils # (Manual) Metamyelocytes # Myelocytes # Promyelocytes # Blast Cells # WBC Morphology Hypersegmented Neuts Hyposegmented Neuts Hypogranular Neuts Smudge Cells Toxic Granulation Toxic Vacuolation Dohle Bodies Pelger-Huet Anomaly Katia Rods Platelet Estimate Clumped Platelets Plt Clumps, EDTA Large Platelets Giant Platelets Platelet Satelliting Plt Morphology Comment RBC Morphology Dimorphic RBCs Polychromasia Hypochromasia Poikilocytosis Anisocytosis Microcytosis Macrocytosis Spherocytes Pappenheimer Bodies Sickle Cells Target Cells Tear Drop Cells Ovalocytes Stomatocytes Helmet Cells [place] Bodies [place] Rings [place] Cells Bite Cells Crenated Cell Elliptocytes Acanthocytes (Spur) Rouleaux Hemoglobin C Crystals Schistocytes Malaria parasites Jl Bodies Hem Pathologist Commnt PT INR APTT Sodium Potassium Chloride Carbon Dioxide Anion Gap BUN Creatinine Estimated GFR BUN/Creatinine Ratio Glucose POC Glucose Calcium Iron 11 L TIBC 623 H % Saturation 1.77 Transferrin 515 H Total Bilirubin 0.80 Direct Bilirubin 0.2 Indirect Bilirubin 0.6 AST 25 ALT 10 Alkaline Phosphatase 80 Total Protein 7.4 Albumin 4.6 Albumin/Globulin Ratio 1.6 Lipase Blood Type A POSITIVE Antibody Screen Negative Crossmatch See Detail 07/29/17 07/29/17 07/29/17 06:41 07:28 07:59 WBC 4.1 L RBC 3.49 L Hgb 7.7 L Hct 24.3 L MCV 70 L MCH 22 L MCHC 32 RDW 28.4 H Plt Count 228 Lymph % (Auto) [place] % (Auto) Eos % (Auto) Baso % (Auto) Lymph # [place] # Eos # Baso # Add Manual Diff Complete Total Counted 100 Seg Neutrophils % Seg Neuts % (Manual) 68.0 Band Neutrophils % 0 Lymphocytes % (Manual) 25.0 Reactive Lymphs % (Man) 0 Monocytes % (Manual) 6.0 Eosinophils % (Manual) 0 Basophils % (Manual) 1.0 Metamyelocytes % 0 Myelocytes % 0 Promyelocytes % 0 Blast Cells % 0 Nucleated RBC % 1.0 H Seg Neutrophils # Seg Neutrophils # Man 2.8 Band Neutrophils # 0.0 Lymphocytes # (Manual) 1.0 L Abs React Lymphs (Man) 0.0 Monocytes # (Manual) 0.2 Eosinophils # (Manual) 0.0 Basophils # (Manual) 0.0 Metamyelocytes # 0.0 Myelocytes # 0.0 Promyelocytes # 0.0 Blast Cells # 0.0 WBC Morphology Not Reportable Hypersegmented Neuts Not Reportable Hyposegmented Neuts Not Reportable Hypogranular Neuts Not Reportable Smudge Cells Not Reportable Toxic Granulation Not Reportable Toxic Vacuolation Not Reportable Dohle Bodies Not Reportable Pelger-Huet Anomaly Not Reportable Katia Rods Not Reportable Platelet Estimate Appears normal Clumped Platelets Not Reportable Plt Clumps, EDTA Not Reportable Large Platelets Not Reportable Giant Platelets Not Reportable Platelet Satelliting Not Reportable Plt Morphology Comment Not Reportable RBC Morphology Not Reportable Dimorphic RBCs Yes Polychromasia 1+ Hypochromasia 2+ Poikilocytosis 2+ Anisocytosis 2+ Microcytosis Not Reportable Macrocytosis 1+ Spherocytes Not Reportable Pappenheimer Bodies Not Reportable Sickle Cells Not Reportable Target Cells Not Reportable Tear Drop Cells Rare Ovalocytes 2+ Stomatocytes 1+ Helmet Cells Rare [place] Bodies Not Reportable [place] Rings Not Reportable Luke Cells Not Reportable Bite Cells Not Reportable Crenated Cell Not Reportable Elliptocytes 1+ Acanthocytes (Spur) Rare Rouleaux Not Reportable Hemoglobin C Crystals Not Reportable Schistocytes Rare Malaria parasites Not Reportable Jl Bodies Not Reportable Hem Pathologist Commnt No PT INR APTT Sodium Potassium Chloride Carbon Dioxide Anion Gap BUN Creatinine Estimated GFR BUN/Creatinine Ratio Glucose POC Glucose 119 H 139 H Calcium Iron TIBC % Saturation Transferrin Total Bilirubin Direct Bilirubin Indirect Bilirubin AST ALT Alkaline Phosphatase Total Protein Albumin Albumin/Globulin Ratio Lipase Blood Type Antibody Screen Crossmatch 07/29/17 07/29/17 07:59 11:18 WBC RBC Hgb Hct MCV MCH MCHC RDW Plt Count Lymph % (Auto) [place] % (Auto) Eos % (Auto) Baso % (Auto) Lymph # [place] # Eos # Baso # Add Manual Diff Total Counted Seg Neutrophils % Seg Neuts % (Manual) Band Neutrophils % Lymphocytes % (Manual) Reactive Lymphs % (Man) Monocytes % (Manual) Eosinophils % (Manual) Basophils % (Manual) Metamyelocytes % Myelocytes % Promyelocytes % Blast Cells % Nucleated RBC % Seg Neutrophils # Seg Neutrophils # Man Band Neutrophils # Lymphocytes # (Manual) Abs React Lymphs (Man) Monocytes # (Manual) Eosinophils # (Manual) Basophils # (Manual) Metamyelocytes # Myelocytes # Promyelocytes # Blast Cells # WBC Morphology Hypersegmented Neuts Hyposegmented Neuts Hypogranular Neuts Smudge Cells Toxic Granulation Toxic Vacuolation Dohle Bodies Pelger-Huet Anomaly Katia Rods Platelet Estimate Clumped Platelets Plt Clumps, EDTA Large Platelets Giant Platelets Platelet Satelliting Plt Morphology Comment RBC Morphology Dimorphic RBCs Polychromasia Hypochromasia Poikilocytosis Anisocytosis Microcytosis Macrocytosis Spherocytes Pappenheimer Bodies Sickle Cells Target Cells Tear Drop Cells Ovalocytes Stomatocytes Helmet Cells Suarez-[place]un[place] Bodies [place] Rings [place] Cells Bite Cells Crenated Cell Elliptocytes Acanthocytes (Spur) Rouleaux Hemoglobin C Crystals Schistocytes Malaria parasites Jl Bodies Hem Pathologist Commnt PT INR APTT Sodium 141 Potassium 4.1 Chloride 101.3 Carbon Dioxide 27 Anion Gap 17 BUN 16 Creatinine 0.5 L Estimated GFR > 60 BUN/Creatinine Ratio 32 Glucose 101 H POC Glucose 150 H Calcium 8.7 Iron TIBC % Saturation Transferrin Total Bilirubin Direct Bilirubin Indirect Bilirubin AST ALT Alkaline Phosphatase Total Protein Albumin Albumin/Globulin Ratio Lipase Blood Type Antibody Screen Crossmatch Assessment and Plan Pt seen and examined. He has an approx 4 yr hx of anemia requiring transfusions. Does not recall ever getting IV iron. Discussed AVMs, and likely chronic blood loss, with patient. Advised to take chronic bid Iron and avoid ASA/NSAIDs. If this fails to maintain his H/H, he will definitely need Pillcam, and if unamenable to ablation due to numerous AVMs, possibly benefit from thalidomide, estrogen, or other agent that will help her coagulate better.
[2017-07-29 10:55] LABS: Eosinophils % (Manual) 0 % (0.0-4.3); Total Cells Counted 100
[2017-07-29 10:56] LABS: Acanthocytes Rare; Anisocytosis 2+; Dimorphic RBC Yes; Helmet Cells Rare; Hypochromasia 2+; Macrocytosis 1+; Ovalocytes 2+; Poikilocytosis 2+; Schistocytes Rare; Stomatocytes 1+; Tear Drop Cells Rare
[2017-07-29] MEDS ORDERED: PROTONIX PO SCH (11:00)
[2017-07-29] MEDS ORDERED: FEOSOL PO SCH (11:00)
--- NOTE | 2017-07-29 15:27 | Discharge Summary ---
Providers - Providers Date of Admission: 07/28/17 23:21 Date of discharge: 07/29/17 Attending physician: LESLI KELLEY MD 07/28/17 23:21 Consult to Physician [CONS] Routine Comment: Consulting Provider: MILANA SHEEHAN Physician Instructions: Reason For Exam: anemia, heme + stool Primary care physician: [employer] Hospitalization Condition: Stable Hospital course: Patient is a 61-year-old -[place] man who presented to the emergency department with complaints of dizziness exacerbated with standing. He also complained of generalized weakness. Patient has a history of multiple AVMs and his hemoglobin on presentation was 6.1. He was transfused with 2 units PRBC and GI was consulted. Patient was not found to have any acute bleed and his H&H remained stable. He was clinically and hemodynamically stable for discharge and advised to follow-up as an outpatient with GI for pillcam study. Patient is discharged with iron supplementation and Protonix. He will follow up with primary care provider within 5 days of discharge. Discharge diagnoses Symptomatic anemia History of multiple AVMs Disposition: - TO HOME OR SELFCARE Time spent for discharge: 32 minutes Core Measure Documentation - Palliative Care Palliative Care/ Comfort Measures: Not Applicable Exam - Physical Exam Narrative exam: General appearance: Present: no acute distress, well-nourished - EENT Eyes: Present: PERRL, EOM intact ENT: hearing intact, clear oral mucosa - Neck Present: supple, normal ROM - Respiratory Respiratory effort: normal Respiratory: bilateral: CTA - Cardiovascular Rhythm: regular Heart Sounds: Present: S1 & S2 - Extremities Extremities: no ischemia, No edema - Abdominal General gastrointestinal: soft, non-tender, non-distended - Integumentary Integumentary: Present: clear, warm, dry - Psychiatric Psychiatric: appropriate mood/affect, intact judgment & insight, cooperative - Neurologic Neurologic: CNII-XII intact, moves all extremities - Constitutional Vitals: Temp Pulse Resp BP Pulse Ox 98.4 F 86 20 136/72 100 07/29/17 08:30 07/29/17 08:30 07/29/17 08:30 07/29/17 08:30 07/29/17 08:30 Plan Follow up with: SUSANA RAMOS MD [Staff Physician] - 14 Days PRIMARY CARE, [Primary Care Provider] - 7 Days Prescriptions: Ferrous Sulfate [Feosol 325 MG tab] 325 mg PO BID #60 tablet Pantoprazole [Protonix TAB] 40 mg PO QDAY #30 tablet
== END 2017-07-29 16:49 | disposition home or self-care (01) | DRG 379 ==
LOC: ED 14:53 → 3A 23:21
PROVIDERS: ADMIT Internal Medicine; ATTEND Internal Medicine
PROC: 30233N1 Transfusion of Nonautologous Red Blood Cells into Peripheral Vein, Percutaneous Approach (ICD-10-PCS; principal; 2017-07-29)
DX: K92.2 Gastrointestinal hemorrhage, unspecified (principal); D64.9 Anemia, unspecified; B19.20 Unspecified viral hepatitis C without hepatic coma; E11.9 Type 2 diabetes mellitus without complications; F17.200 Nicotine dependence, unspecified, uncomplicated; Z82.49 Family history of ischemic heart disease and other diseases of the circulatory system
CPT/HCPCS: 36415; 80048; 80053; 80074; 82271; 82962; 83550; 83690; 85007; 85025; 85610; 85730; 86850; 86900; 86901; 86920; 93005; 93010; J7040; P9016

== ENCOUNTER 2018-05-03 15:46 | Inpatient (IN) | payer SELFPAY ==
[2018-05-03] MEDS ORDERED: NACL 0.9% 1000 ML 1,000 ML IV ONE (16:24)
--- NOTE | 2018-05-03 16:26 | Emergency Department Report ---
ED Dizziness HPI - General Chief Complaint: Dizziness Stated Complaint: DIZZY Time Seen by Provider: 05/03/18 16:04 Source: patient Mode of arrival: Ambulatory Limitations: No Limitations - History of Present Illness Initial Comments: Patient is a 61-year-old male with past medical history of well-controlled type 2 diabetes as well as a history of chronic anemia who is presenting with dizziness for the past 3 days. Patient states he gets dizzy and lightheaded when he stands. The patient is lying down and sitting in chair is mostly for the last several days. Patient denies any cough cold congestion fevers chills nausea vomiting or diarrhea. Patient states his appetite has been decreased - Related Data Previous Rx's Medication Instructions Recorded Last Taken Type Ferrous Sulfate [Feosol 325 MG tab] 325 mg PO BID #60 tablet 07/29/17 Unknown Rx Allergies Allergy/AdvReac Type Severity Reaction Status Date / Time No Known Allergies Allergy Verified 08/27/17 07:25 ED Review of Systems ROS: Stated complaint: DIZZY Other details as noted in HPI Comment: All other systems reviewed and negative ED Past Medical Hx - Past Medical History Hx Hypertension: No Hx Congestive Heart Failure: No Hx Diabetes: Yes Hx Sickle Cell Disease: No Hx Seizures: No Hx Asthma: No Hx COPD: No Hx Dementia: No Hx HIV: No Additional medical history: ANEMIA. Proximal gut and multiple colon AVM's (endo scopy/colonoscopy March 2017). hep C - Social History Smoking Status: Current Every Day Smoker Substance Use Type: None - Medications Home Medications: Home Medications Medication Instructions Recorded Confirmed Last Taken Type Ferrous Sulfate [Feosol 325 MG tab] 325 mg PO BID #60 tablet 07/29/17 08/27/17 Unknown Rx ED Physical Exam - General Limitations: No Limitations General appearance: alert, in no apparent distress - Head Head exam: Present: atraumatic, normocephalic - Eye Eye exam: Present: normal appearance, PERRL, EOMI, other (muddy sclera) - ENT ENT exam: Present: mucous membranes moist - Neck Neck exam: Present: normal inspection - Respiratory Respiratory exam: Present: normal lung sounds bilaterally. Absent: respiratory distress, wheezes, rales, rhonchi - Cardiovascular Cardiovascular Exam: Present: regular rate, normal rhythm. Absent: systolic murmur, diastolic murmur, rubs, gallop - GI/Abdominal GI/Abdominal exam: Present: soft, normal bowel sounds. Absent: distended, tenderness, guarding, rebound - Rectal Rectal exam: Present: deferred - Extremities Exam Extremities exam: Present: normal inspection - Back Exam Back exam: Present: normal inspection - Neurological Exam Neurological exam: Present: alert, oriented X3 - Psychiatric Psychiatric exam: Present: normal affect, normal mood - Skin Skin exam: Present: warm, dry, intact, normal color. Absent: rash ED Course Vital Signs 05/03/18 05/03/18 15:49 16:04 Temperature 97.5 F L Pulse Rate 87 90 Respiratory 16 16 Rate Blood Pressure 133/72 O2 Sat by Pulse 97 100 Oximetry ED Medical Decision Making - Lab Data Result diagrams: 05/03/18 16:02 05/03/18 16:02 Lab Results 05/03/18 05/03/18 Range/Units 16:02 16:02 WBC 2.7 L (4.5-11.0) K/mm3 RBC 2.50 L (3.65-5.03) M/mm3 Hgb 4.0 L* (11.8-15.2) gm/dl Hct 15.0 L* (35.5-45.6) % MCV 60 L (84-94) fl MCH 16 L (28-32) pg MCHC 27 L (32-34) % RDW 22.9 H (13.2-15.2) % Sodium 143 (137-145) mmol/L Potassium 3.9 (3.6-5.0) mmol/L Chloride 107.5 H (98-107) mmol/L Carbon Dioxide 23 (22-30) mmol/L Anion Gap 16 mmol/L BUN 18 (9-20) mg/dL Creatinine 0.7 L (0.8-1.5) mg/dL Estimated GFR > 60 ml/min BUN/Creatinine Ratio 26 % Glucose 94 (75-100) mg/dL Calcium 8.3 L (8.4-10.2) mg/dL Total Bilirubin 0.50 (0.1-1.2) mg/dL AST 11 (5-40) units/L ALT 8 (7-56) units/L Alkaline Phosphatase 64 (35-129) units/L Total Protein 6.3 (6.3-8.2) g/dL Albumin 3.8 L (3.9-5) g/dL Albumin/Globulin Ratio 1.5 % - EKG Data -: EKG Interpreted by Nv - EKG Data 05/03/18 17:00 EKG shows sinus rhythm a rate of 83 axis is leftward there are Q waves in the septal leads but no ST elevation or depressions. There is no evidence of STEMI. Time interpretation is 1557 - Medical Decision Making Patient is a 62-year-old -[place] male who has dizziness upon standing for the last 2-3 days. Patient noted to have extremely low hemoglobin. Further questioned patient states he has not seen any blood in his stool or any black tarry stools. Patient states he's had several blood transfusions in the last 5 years and no acute toe Y he is also anemic. Patient does have a muddy sclera isn't bilirubin is within normal limits. Patient be admitted to the hospitalist service and Dr. Ambriz. Critical care attestation.: If time is entered above; I have spent that time in minutes in the direct care of this critically ill patient, excluding procedure time. ED Disposition Clinical Impression: Symptomatic anemia, Iron deficiency anemia due to chronic blood loss, Guaiac + stool Disposition: OP ADMIT IP TO THIS HOSP Is pt being admited?: Yes Does the pt Need Aspirin: No Condition: Stable Time of Disposition: 17:04
[2018-05-03 16:31] LABS: Mean Corpuscular HGB Conc 27 % (32-34)
[2018-05-03 16:49] LABS: Mean Corpuscular Volume 60 fl (84-94); Red Cell Distribution Width 22.9 % (13.2-15.2)
[2018-05-03 16:58] LABS: Alanine Aminotransferase 8 units/L (7-56); Albumin 3.8 g/dL (3.9-5); BUN/Creatinine Ratio 26; Blood Urea Nitrogen 18 mg/dL (9-20); Calcium 8.3 mg/dL (8.4-10.2); Hemolysis Index 5
[2018-05-03] MEDS ORDERED: SODIUM CHLORIDE FLUSH SYRINGE 10 ML IV PRN (17:06)
[2018-05-03] MEDS ORDERED: PROVENTIL IH PRN (17:06)
--- NOTE | 2018-05-03 17:08 | History and Physical Report ---
History of Present Illness Chief complaint: I feel weak and dizzy History of present illness: 62 YO Male with Nicotine Dependence, AVM, Iron Deficiency Anemia, HCV, DM, presents to ED for evaluation. Pt states that he has experienced multiple episodes of dizziness, and near syncope upon standing over the past 1 week with progressively worsening symptoms over the past 3 days. Pt acknowledges decreased exercise tolerance, generalized weakness, and shortness of breath at rest and with exertion. Pt transported to [facility] for further care and evaluation. Patient denies fever, chills, CP, Palpitations, leg swelling, calf pain, hemoptysis, productive cough, skin rash, prolonged travel/immoblity, individual/family histo ry of DVT/PE, nausea vomiting or diarrhea. Pt seen and evaluated in ED and found to have GI Bleeding, complicated by symptomatic anemia. Past History Past Medical History: anemia, diabetes, hepatitis Past Surgical History: Other (colonoscopy) Social history: single, smoking Family history: diabetes Medications and Allergies Allergies Allergy/AdvReac Type Severity Reaction Status Date / Time No Known Allergies Allergy Verified 08/27/17 07:25 Home Medications Medication Instructions Recorded Confirmed Last Taken Type Ferrous Sulfate [Feosol 325 MG tab] 325 mg PO BID #60 tablet 07/29/17 08/27/17 Unknown Rx Active Meds: Active Medications Sodium Chloride (Nacl 0.9% 1000 Ml) 1,000 mls @ 999 mls/hr IV BOLUS ONE Stop: 05/03/18 17:24 Review of Systems Constitutional: no weight loss, no weight gain, no fever, no chills Ears, nose, mouth and throat: no ear pain, no ear discharge, no tinnitis, no decreased hearing, no nose pain Cardiovascular: no chest pain, no orthopnea, no palpitations, no rapid/irregular heart beat, no edema Respiratory: no cough, no cough with sputum, no excessive sputum, no hemoptysis Gastrointestinal: no abdominal pain, no nausea, no vomiting Genitourinary Male: no hematuria, no flank pain, no discharge, no urinary frequency, no urinary hesitancy Rectal: no pain, no incontinence, no bleeding Musculoskeletal: no neck stiffness, no neck pain, no shooting arm pain, no low back pain, no shooting leg pain Integumentary: no rash, no pruritis, no redness, no sores, no wounds Neurological: no head injury, no transient paralysis, no paralysis, no weakness, no numbness, no tingling Psychiatric: no anxiety, no memory loss, no change in sleep habits, no sleep disturbances, no insomnia, no hypersomnia Endocrine: no cold intolerance, no heat intolerance, no polyphagia, no excessive thirst, no polydipsia, no polyuria Hematologic/Lymphatic: no easy bruising, no easy bleeding, no lymphadenopathy, no lymphedema Allergic/Immunologic: no urticaria, no allergic rhinitis, no wheezing, no persistent infections, no anaphylaxis Exam - Constitutional Vitals: Temp Pulse Resp BP Pulse Ox 97.5 F L 90 16 133/72 100 05/03/18 15:49 05/03/18 16:04 05/03/18 16:04 05/03/18 15:49 05/03/18 16:04 General appearance: Present: mild distress - EENT Eyes: Present: PERRL (conjunctival pallor) ENT: hearing intact, clear oral mucosa - Neck Neck: Present: supple, normal ROM - Respiratory Respiratory effort: normal Respiratory: bilateral: CTA - Cardiovascular Heart Sounds: Present: S1 & S2. Absent: rub, click - Extremities Extremities: pulses symmetrical, No edema Peripheral Pulses: within normal limits - Abdominal General gastrointestinal: Present: soft, non-tender, non-distended, normal bowel sounds Male genitourinary: Present: normal - Integumentary Integumentary: Present: clear, warm, dry - Musculoskeletal Musculoskeletal: gait normal, strength equal bilaterally - Psychiatric Psychiatric: appropriate mood/affect, intact judgment & insight - Neurologic Neurologic: CNII-XII intact, moves all extremities Results - Labs CBC & Chem 7: 05/03/18 16:02 05/03/18 16:02 Labs: Abnormal lab results 05/03/18 05/03/18 Range/Units 16:02 16:02 WBC 2.7 L (4.5-11.0) K/mm3 RBC 2.50 L (3.65-5.03) M/mm3 Hgb 4.0 L* (11.8-15.2) gm/dl Hct 15.0 L* (35.5-45.6) % MCV 60 L (84-94) fl MCH 16 L (28-32) pg MCHC 27 L (32-34) % RDW 22.9 H (13.2-15.2) % Chloride 107.5 H (98-107) mmol/L Creatinine 0.7 L (0.8-1.5) mg/dL Calcium 8.3 L (8.4-10.2) mg/dL Albumin 3.8 L (3.9-5) g/dL Assessment and Plan - Patient Problems (1) GI bleed Current Visit: No Status: Acute Qualifiers: GI bleed type/associated pathology: unspecified gastrointestinal hemorrhage type Qualified Code(s): K92.2 - Gastrointestinal hemorrhage, unspecified Plan to address problem: Suspected secondary to AVM: IV ppi therapy, serial cbc. (2) Symptomatic anemia Current Visit: Yes Status: Acute Plan to address problem: PRBC transfusion, iron replacement therapy, repeat iron panel (3) Nicotine dependence with withdrawal Current Visit: Yes Status: Acute Qualifiers: Nicotine product type: cigarettes Qualified Code(s): F17.213 - Nicotine dependence, cigarettes, with withdrawal Plan to address problem: smoking cessation counseling, supportive care. (4) Diabetes Current Visit: Yes Status: Acute Plan to address problem: ADA diet, insulin therapy, accu check (5) Iron deficiency anemia due to chronic blood loss Onset Date: 04/10/15 Current Visit: No Status: Chronic Plan to address problem: Iron replacement therapy, iron panel, cbc, (6) DVT prophylaxis Current Visit: Yes Status: Acute Plan to address problem: SCD to BLE while in bed.
[2018-05-03 17:22] LABS: Bilirubin,Direct < 0.2 mg/dL (0-0.2)
[2018-05-03 17:43] LABS: Total Cells Counted 100
[2018-05-03 17:44] LABS: Anisocytosis 2+; Hypochromasia 3+; Platelet Estimate Appears Decreased; Poikilocytosis 2+
[2018-05-03 17:45] LABS: Platelet Count 21 K/mm3 (140-440); Schistocytes Few; Tear Drop Cells 1+
[2018-05-03] MEDS ORDERED: NACL 0.9% 500 ML 500 ML IV ONE (18:40)
[2018-05-03] MEDS ORDERED: NACL 0.9% 500 ML 500 ML IV NR (19:00)
[2018-05-03] MEDS ORDERED: PEPCID IV ONE (23:00)
[2018-05-03] MEDS: PROTONIX IV SCH (23:08)
[2018-05-03] MEDS: FEOSOL PO SCH (23:33)
[2018-05-04] MEDS ORDERED: NACL 0.9% 500 ML 500 ML ONE (00:06)
[2018-05-04] MEDS: SODIUM CHLORIDE FLUSH SYRINGE 10 ML IV SCH ×3 (00:22→21:51)
[2018-05-04 08:11] LABS: Hematocrit 27.2 % (35.5-45.6); Hemoglobin 8.7 gm/dl (11.8-15.2); Mean Corpuscular HGB Conc 32 % (32-34); Mean Corpuscular Volume 72 fl (84-94)
[2018-05-04 09:12] LABS: Eosinophils % (Manual) 0 % (0.0-4.3); Total Cells Counted 100
--- NOTE | 2018-05-04 09:16 | Progress Note ---
Assessment and Plan Assessment and plan: --Acute on chronic GI bleeding; history of AV malformations Closely monitor, GI consult --Acute on chronic blood loss anemia; hemoglobin 4 at the time of admission Received 3 units of PRBC today HB8.7 Closely monitor H&H additional transfusion as needed --Type 2 diabetes mellitus; Accu-Chek sliding scale coverage and ADA diet and insulin as needed --Iron deficiency anemia with chronic blood loss; Iron supplements and supportive care and blood transfusion as needed --Tobacco use; smoking cessation counseling, nicotine patch as needed --DVT prophylaxis; SCD History Interval history: Pt seen and examned Medcal records reviewed [employer] genet new complants vitals stable Hospitalist Physical - Constitutional Vitals: Temp Pulse Resp BP Pulse Ox 98 F 84 16 120/72 99 05/04/18 07:15 05/04/18 07:15 05/04/18 07:15 05/04/18 07:15 05/04/18 07:15 General appearance: Present: no acute distress, well-nourished - EENT Eyes: Present: PERRL, EOM intact - Neck Neck: Present: supple, normal ROM - Respiratory Respiratory effort: normal Respiratory: bilateral: diminished, negative: rales, rhonchi, wheezing - Cardiovascular Rhythm: regular Heart Sounds: Present: S1 & S2 - Extremities Extremities: no ischemia, No edema - Abdominal General gastrointestinal: soft, non-tender, non-distended, distended - Integumentary Integumentary: Present: clear, warm - Psychiatric Psychiatric: appropriate mood/affect, cooperative Results - Labs CBC & Chem 7: 05/05/18 06:47 05/05/18 06:47 Labs: Laboratory Last Values WBC 3.9 K/mm3 (4.5-11.0) L 05/04/18 07:43 RBC 3.80 M/mm3 (3.65-5.03) 05/04/18 07:43 Hgb 8.7 gm/dl (11.8-15.2) L D 05/04/18 07:43 Hct 27.2 % (35.5-45.6) L D 05/04/18 07:43 MCV 72 fl (84-94) L 05/04/18 07:43 MCH 23 pg (28-32) L 05/04/18 07:43 MCHC 32 % (32-34) 05/04/18 07:43 RDW 30.0 % (13.2-15.2) H 05/04/18 07:43 Plt Count 21 K/mm3 (140-440) L 05/03/18 16:02 Lymph % (Auto) Slasher Sawyer 05/04/18 07:43 [place] % (Auto) Slasher Sawyer 05/04/18 07:43 Eos % (Auto) Slasher Sawyer 05/04/18 07:43 Baso % (Auto) Slasher Sawyer 05/04/18 07:43 Lymph # Slasher Sawyer 05/04/18 07:43 [place] # Slasher Sawyer 05/04/18 07:43 Eos # Slasher Sawyer 05/04/18 07:43 Baso # Slasher Sawyer 05/04/18 07:43 Add Manual Diff Complete 05/03/18 16:02 Total Counted 100 05/03/18 16:02 Seg Neutrophils % Slasher Sawyer 05/04/18 07:43 Seg Neuts % (Manual) 66.0 % (40.0-70.0) 05/03/18 16:02 Band Neutrophils % 0 % 05/03/18 16:02 Lymphocytes % (Manual) 28.0 % (13.4-35.0) 05/03/18 16:02 Reactive Lymphs % (Man) 0 % 05/03/18 16:02 Monocytes % (Manual) 2.0 % (0.0-7.3) 05/03/18 16:02 Eosinophils % (Manual) 3.0 % (0.0-4.3) 05/03/18 16:02 Basophils % (Manual) 1.0 % (0.0-1.8) 05/03/18 16:02 Metamyelocytes % 0 % 05/03/18 16:02 Myelocytes % 0 % 05/03/18 16:02 Promyelocytes % 0 % 05/03/18 16:02 Blast Cells % 0 % 05/03/18 16:02 Nucleated RBC % Not Reportable 05/03/18 16:02 Seg Neutrophils # Slasher Sawyer 05/04/18 07:43 Seg Neutrophils # Man 1.8 K/mm3 (1.8-7.7) 05/03/18 16:02 Band Neutrophils # 0.0 K/mm3 05/03/18 16:02 Lymphocytes # (Manual) 0.8 K/mm3 (1.2-5.4) L 05/03/18 16:02 Abs React Lymphs (Man) 0.0 K/mm3 05/03/18 16:02 Monocytes # (Manual) 0.1 K/mm3 (0.0-0.8) 05/03/18 16:02 Eosinophils # (Manual) 0.1 K/mm3 (0.0-0.4) 05/03/18 16:02 Basophils # (Manual) 0.0 K/mm3 (0.0-0.1) 05/03/18 16:02 Metamyelocytes # 0.0 K/mm3 05/03/18 16:02 Myelocytes # 0.0 K/mm3 05/03/18 16:02 Promyelocytes # 0.0 K/mm3 05/03/18 16:02 Blast Cells # 0.0 K/mm3 05/03/18 16:02 WBC Morphology Not Reportable 05/03/18 16:02 Hypersegmented Neuts Not Reportable 05/03/18 16:02 Hyposegmented Neuts Not Reportable 05/03/18 16:02 Hypogranular Neuts Not Reportable 05/03/18 16:02 Smudge Cells Not Reportable 05/03/18 16:02 Toxic Granulation Not Reportable 05/03/18 16:02 Toxic Vacuolation Not Reportable 05/03/18 16:02 Dohle Bodies Not Reportable 05/03/18 16:02 Pelger-Huet Anomaly Not Reportable 05/03/18 16:02 Katia Rods Not Reportable 05/03/18 16:02 Platelet Estimate Appears decreased 05/03/18 16:02 Clumped Platelets Not Reportable 05/03/18 16:02 Plt Clumps, EDTA Not Reportable 05/03/18 16:02 Large Platelets Not Reportable 05/03/18 16:02 Giant Platelets Not Reportable 05/03/18 16:02 Platelet Satelliting Not Reportable 05/03/18 16:02 Plt Morphology Comment Not Reportable 05/03/18 16:02 RBC Morphology Not Reportable 05/03/18 16:02 Dimorphic RBCs Not Reportable 05/03/18 16:02 Polychromasia Not Reportable 05/03/18 16:02 Hypochromasia 3+ 05/03/18 16:02 Poikilocytosis 2+ 05/03/18 16:02 Anisocytosis 2+ 05/03/18 16:02 Microcytosis 1+ 05/03/18 16:02 Macrocytosis Not Reportable 05/03/18 16:02 Spherocytes Not Reportable 05/03/18 16:02 Pappenheimer Bodies Not Reportable 05/03/18 16:02 Sickle Cells Not Reportable 05/03/18 16:02 Target Cells Not Reportable 05/03/18 16:02 Tear Drop Cells 1+ 05/03/18 16:02 Ovalocytes Not Reportable 05/03/18 16:02 Helmet Cells Not Reportable 05/03/18 16:02 [place] Bodies Not Reportable 05/03/18 16:02 [place] Rings Not Reportable 05/03/18 16:02 Luke Cells Not Reportable 05/03/18 16:02 Bite Cells Not Reportable 05/03/18 16:02 Crenated Cell Not Reportable 05/03/18 16:02 Elliptocytes Few 05/03/18 16:02 Acanthocytes (Spur) Not Reportable 05/03/18 16:02 Rouleaux Not Reportable 05/03/18 16:02 Hemoglobin C Crystals Not Reportable 05/03/18 16:02 Schistocytes Few 05/03/18 16:02 Malaria parasites Not Reportable 05/03/18 16:02 Jl Bodies Not Reportable 05/03/18 16:02 Hem Pathologist Commnt No 05/03/18 16:02 Sodium 143 mmol/L (137-145) 05/03/18 16:02 Potassium 3.9 mmol/L (3.6-5.0) 05/03/18 16:02 Chloride 107.5 mmol/L (98-107) H 05/03/18 16:02 Carbon Dioxide 23 mmol/L (22-30) 05/03/18 16:02 Anion Gap 16 mmol/L 05/03/18 16:02 BUN 18 mg/dL (9-20) 05/03/18 16:02 Creatinine 0.7 mg/dL (0.8-1.5) L 05/03/18 16:02 Estimated GFR > 60 ml/min 05/03/18 16:02 BUN/Creatinine Ratio 26 % 05/03/18 16:02 Glucose 94 mg/dL (75-100) 05/03/18 16:02 Calcium 8.3 mg/dL (8.4-10.2) L 05/03/18 16:02 Total Bilirubin 0.50 mg/dL (0.1-1.2) 05/03/18 16:02 Direct Bilirubin < 0.2 mg/dL (0-0.2) 05/03/18 16:02 Indirect Bilirubin 0.3 mg/dL 05/03/18 16:02 AST 11 units/L (5-40) 05/03/18 16:02 ALT 8 units/L (7-56) 05/03/18 16:02 Alkaline Phosphatase 64 units/L (35-129) 05/03/18 16:02 Total Protein 6.3 g/dL (6.3-8.2) 05/03/18 16:02 Albumin 3.8 g/dL (3.9-5) L 05/03/18 16:02 Albumin/Globulin Ratio 1.5 % 05/03/18 16:02 Blood Type A POSITIVE 05/03/18 21:23 Antibody Screen TNR 05/03/18 21:23 JYOTI Antibody Screen Negative 05/03/18 21:23 Crossmatch See Detail 05/03/18 21:23
[2018-05-04 09:27] LABS: Anisocytosis 2+; Hypochromasia 3+; Poikilocytosis 2+; Schistocytes Few; Tear Drop Cells Few
[2018-05-04 09:28] LABS: Platelet Estimate Consistent w Auto
[2018-05-04 10:04] LABS: Platelet Count 21 K/mm3 (140-440)
[2018-05-04] MEDS: FEOSOL PO SCH ×2 (10:07→21:51)
[2018-05-04] MEDS: FOLVITE PO SCH (10:07)
[2018-05-04] MEDS: PROTONIX IV SCH ×2 (10:08→21:51)
--- NOTE | 2018-05-04 10:42 | Gastroenterology Consultation ---
<KEYANA SHER - Last Filed: 05/04/18 11:15> History of Present Illness - Reason for Consult Consult date: 05/04/18 anemia Requesting physician: JOEY CHERRY - History of Present Illness Patient is a 61 y/o male who presented to ED with c/o dizziness x 3 days. Upon admission, he was found to be severely anemic with H/H 4.0/15.0 to which GI has been consulted. H/H now improved to 8.7/27.2 s/p transfusion of 3 units PRBCs. Patient is well know to our service. 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 His last EGD/colonoscopy was in March 2017 with AVMs in upper/lower GI tract ablated with APC with recommendations given for chronic PPI/iron supplement (has seen [facility] in the past for IV infusions) and a pill camera as outpatient to r/o small bowel AVMs, which patient did not follow up in clinic to have done. This morning patient was sitting up on the side of the bed eating breakfast w/o acute distress. Reports dizziness now being improved s/p blood transfusion. Has no active signs of bleeding such as hematemesis, melena, or hematochezia. Last BM was a couple of days ago with brown stool per pt report. Denies fever, CP, SOB, wt loss, abd pain, N/V, diarrhea, or constipation. Tolerating diet. No NSAID use. Admits to being non- compliant with iron supplement at home for last couple of months. PMH significant for DM and hepatitis C (s/p treatment). Past History Past Medical History: anemia (chronic TENNILLE 2/2 AVMs in upper and lower GI tract), diabetes, hepatitis (Hep C (s/p treatment)), other Past Surgical History: Other (EGD/colonoscopy (last 03/2017)) Social history: single, smoking Family history: diabetes, hypertension Medications and Allergies Allergies Allergy/AdvReac Type Severity Reaction Status Date / Time No Known Allergies Allergy Verified 08/27/17 07:25 Home Medications Medication Instructions Recorded Confirmed Last Taken Type Ferrous Sulfate [Feosol 325 MG tab] 325 mg PO BID #60 tablet 05/05/18 Unknown Rx Folic Acid [Folvite] 1 mg PO QDAY #30 tablet 05/05/18 Unknown Rx Pantoprazole [Protonix TAB] 40 mg PO BID #30 tablet 05/05/18 Unknown Rx Active Meds: Active Medications Albuterol (Proventil) 2.5 mg IH Q3HRT PRN PRN Reason: Shortness Of Breath Ferrous Sulfate (Feosol) 325 mg PO BID [facility] Last Admin: 05/04/18 10:07 Dose: 325 mg Documented by: Folic Acid (Folvite) 1 mg PO QDAY [facility] Last Admin: 05/04/18 10:07 Dose: 1 mg Documented by: Pantoprazole Sodium (Protonix) 40 mg IV BID [facility] Last Admin: 05/04/18 10:08 Dose: 40 mg Documented by: Sodium Chloride (Sodium Chloride Flush Syringe 10 Ml) 10 ml IV BID [facility] Last Admin: 05/04/18 10:08 Dose: 10 ml Documented by: Sodium Chloride (Sodium Chloride Flush Syringe 10 Ml) 10 ml IV PRN PRN PRN Reason: LINE FLUSH medications reviewed/updated as required Review of Systems - Review of Systems Constitutional: other (dizziness (now improved)) Gastrointestinal: no abdominal pain, no nausea, no vomiting, no hematemesis, no melena, no hematochezia Exam - Constitutional Vital Signs: Temp Pulse Resp BP Pulse Ox 98 F 84 16 120/72 99 05/04/18 07:15 05/04/18 07:15 05/04/18 07:15 05/04/18 07:15 05/04/18 07:15 General appearance: no acute distress - EENT Eyes: PERRL, EOM intact ENT: hearing intact - Respiratory Respiratory: bilateral: CTA - Cardiovascular Rhythm: regular Heart Sounds: Present: S1 & S2 - Gastrointestinal General gastrointestinal: Present: soft, non-tender, non-distended, normal bowel sounds - Neurologic Neurological: alert and oriented x3 - Labs CBC & Chem 7: 05/04/18 07:43 05/03/18 16:02 Lab Results: Laboratory Results - last 24 hr 05/03/18 05/03/18 05/03/18 16:02 16:02 21:23 WBC 2.7 L RBC 2.50 L Hgb 4.0 L* Hct 15.0 L* MCV 60 L MCH 16 L MCHC 27 L RDW 22.9 H Plt Count 21 L Lymph % (Auto) [place] % (Auto) Eos % (Auto) Baso % (Auto) Lymph # [place] # Eos # Baso # Add Manual Diff Complete Total Counted 100 Seg Neutrophils % Seg Neuts % (Manual) 66.0 Band Neutrophils % 0 Lymphocytes % (Manual) 28.0 Reactive Lymphs % (Man) 0 Monocytes % (Manual) 2.0 Eosinophils % (Manual) 3.0 Basophils % (Manual) 1.0 Metamyelocytes % 0 Myelocytes % 0 Promyelocytes % 0 Blast Cells % 0 Nucleated RBC % Not Reportable Seg Neutrophils # Seg Neutrophils # Man 1.8 Band Neutrophils # 0.0 Lymphocytes # (Manual) 0.8 L Abs React Lymphs (Man) 0.0 Monocytes # (Manual) 0.1 Eosinophils # (Manual) 0.1 Basophils # (Manual) 0.0 Metamyelocytes # 0.0 Myelocytes # 0.0 Promyelocytes # 0.0 Blast Cells # 0.0 WBC Morphology Not Reportable Hypersegmented Neuts Not Reportable Hyposegmented Neuts Not Reportable Hypogranular Neuts Not Reportable Smudge Cells Not Reportable Toxic Granulation Not Reportable Toxic Vacuolation Not Reportable Dohle Bodies Not Reportable Pelger-Huet Anomaly Not Reportable Katia Rods Not Reportable Platelet Estimate Appears decreased Clumped Platelets Not Reportable Plt Clumps, EDTA Not Reportable Large Platelets Not Reportable Giant Platelets Not Reportable Platelet Satelliting Not Reportable Plt Morphology Comment Not Reportable RBC Morphology Not Reportable Dimorphic RBCs Not Reportable Polychromasia Not Reportable Hypochromasia 3+ Poikilocytosis 2+ Anisocytosis 2+ Microcytosis 1+ Macrocytosis Not Reportable Spherocytes Not Reportable Pappenheimer Bodies Not Reportable Sickle Cells Not Reportable Target Cells Not Reportable Tear Drop Cells 1+ Ovalocytes Not Reportable Helmet Cells Not Reportable Suarez-[place]il[place] Bodies Not Reportable [place] Rings Not Reportable [place] Cells Not Reportable Bite Cells Not Reportable Crenated Cell Not Reportable Elliptocytes Few Acanthocytes (Spur) Not Reportable Rouleaux Not Reportable Hemoglobin C Crystals Not Reportable Schistocytes Few Malaria parasites Not Reportable Jl Bodies Not Reportable Hem Pathologist Commnt No Sodium 143 Potassium 3.9 Chloride 107.5 H Carbon Dioxide 23 Anion Gap 16 BUN 18 Creatinine 0.7 L Estimated GFR > 60 BUN/Creatinine Ratio 26 Glucose 94 Calcium 8.3 L Total Bilirubin 0.50 Direct Bilirubin < 0.2 Indirect Bilirubin 0.3 AST 11 ALT 8 Alkaline Phosphatase 64 Total Protein 6.3 Albumin 3.8 L Albumin/Globulin Ratio 1.5 Blood Type A POSITIVE Antibody Screen TNR JYOTI Antibody Screen Negative Crossmatch See Detail 05/04/18 07:43 WBC 3.9 L RBC 3.80 Hgb 8.7 L D Hct 27.2 L D MCV 72 L MCH 23 L MCHC 32 RDW 30.0 H Plt Count 21 L Lymph % (Auto) Pipe Liner [place] % (Auto) Pipe Liner Eos % (Auto) Pipe Liner Baso % (Auto) Pipe Liner Lymph # Pipe Liner [place] # Pipe Liner Eos # Pipe Liner Baso # Pipe Liner Add Manual Diff Complete Total Counted 100 Seg Neutrophils % Pipe Liner Seg Neuts % (Manual) 71.0 H Band Neutrophils % 0 Lymphocytes % (Manual) 22.0 Reactive Lymphs % (Man) 0 Monocytes % (Manual) 6.0 Eosinophils % (Manual) 0 Basophils % (Manual) 1.0 Metamyelocytes % 0 Myelocytes % 0 Promyelocytes % 0 Blast Cells % 0 Nucleated RBC % Not Reportable Seg Neutrophils # Pipe Liner Seg Neutrophils # Man 2.8 Band Neutrophils # 0.0 Lymphocytes # (Manual) 0.9 L Abs React Lymphs (Man) 0.0 Monocytes # (Manual) 0.2 Eosinophils # (Manual) 0.0 Basophils # (Manual) 0.0 Metamyelocytes # 0.0 Myelocytes # 0.0 Promyelocytes # 0.0 Blast Cells # 0.0 WBC Morphology Not Reportable Hypersegmented Neuts Not Reportable Hyposegmented Neuts Not Reportable Hypogranular Neuts Not Reportable Smudge Cells Not Reportable Toxic Granulation Not Reportable Toxic Vacuolation Not Reportable Dohle Bodies Not Reportable Pelger-Huet Anomaly Not Reportable Katia Rods Not Reportable Platelet Estimate Consistent w auto Clumped Platelets Not Reportable Plt Clumps, EDTA Not Reportable Large Platelets Not Reportable Giant Platelets Not Reportable Platelet Satelliting Not Reportable Plt Morphology Comment Not Reportable RBC Morphology Not Reportable Dimorphic RBCs Not Reportable Polychromasia Not Reportable Hypochromasia 3+ Poikilocytosis 2+ Anisocytosis 2+ Microcytosis 1+ Macrocytosis Not Reportable Spherocytes Not Reportable Pappenheimer Bodies Not Reportable Sickle Cells Not Reportable Target Cells Not Reportable Tear Drop Cells Few Ovalocytes Not Reportable Helmet Cells Not Reportable Suarez-[place]il[place] Bodies Not Reportable [place] Rings Not Reportable Luke Cells Not Reportable Bite Cells Not Reportable Crenated Cell Not Reportable Elliptocytes Few Acanthocytes (Spur) Not Reportable Rouleaux Not Reportable Hemoglobin C Crystals Not Reportable Schistocytes Few Malaria parasites Not Reportable Jl Bodies Not Reportable Hem Pathologist Commnt No Sodium Potassium Chloride Carbon Dioxide Anion Gap BUN Creatinine Estimated GFR BUN/Creatinine Ratio Glucose Calcium Total Bilirubin Direct Bilirubin Indirect Bilirubin AST ALT Alkaline Phosphatase Total Protein Albumin Albumin/Globulin Ratio Blood Type Antibody Screen JYOTI Antibody Screen Crossmatch Assessment and Plan 1.anemia -H/H on admission 4.0/15.0- now 8.7/27.2 s/p transfusion 3 units PRBCs -continue to monitor H/H and transfuse as needed -hold blood thinning medications -no active signs of bleeding -etiology-h/o chronic 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 -last EGD/colonoscopy 03/2017 showed multiple AVMs in proximal gut and in colon (ablated with APC) -clinically, patient is stable w/o GI complaints. Tolerating diet . -no recommendations for a repeat endoscopic evaluation at this time unless overt bleeding develops -continue daily PPI -resume iron supplement BID -avoid NSAIDs -continue supportive care -if labs stable in am, patient okay to be d/c per a GI standpoint on lifelong iron therapy with follow up in clinic ~ 2 weeks to schedule outpatient pill camera -will sign off, please call if needed <ARCENIO HOLLEY - Last Filed: 05/05/18 16:09> Medications and Allergies Active Meds: Active Medications Albuterol (Proventil) 2.5 mg IH Q3HRT PRN PRN Reason: Shortness Of Breath Ferrous Sulfate (Feosol) 325 mg PO BID [facility] Last Admin: 05/05/18 10:53 Dose: 325 mg Documented by: Folic Acid (Folvite) 1 mg PO QDAY [facility] Last Admin: 05/05/18 10:53 Dose: 1 mg Documented by: Pantoprazole Sodium (Protonix) 40 mg PO BID [facility] Sodium Chloride (Sodium Chloride Flush Syringe 10 Ml) 10 ml IV BID [facility] Last Admin: 05/05/18 10:54 Dose: 10 ml Documented by: Sodium Chloride (Sodium Chloride Flush Syringe 10 Ml) 10 ml IV PRN PRN PRN Reason: LINE FLUSH Exam - Constitutional Vital Signs: Temp Pulse Resp BP Pulse Ox 98.8 F 85 14 137/76 94 05/05/18 12:00 05/05/18 13:00 05/05/18 13:00 05/05/18 13:00 05/05/18 13:00 - Labs CBC & Chem 7: 05/05/18 06:47 05/05/18 06:47 Lab Results: Laboratory Results - last 24 hr 05/05/18 05/05/18 06:47 06:47 WBC 4.9 RBC 3.64 L Hgb 8.4 L Hct 26.0 L MCV 72 L MCH 23 L MCHC 32 RDW 30.0 H Plt Count 24 L Add Manual Diff Complete Total Counted 100 Seg Neuts % (Manual) 72.0 H Band Neutrophils % 5.0 Lymphocytes % (Manual) 10.0 L Reactive Lymphs % (Man) 0 Monocytes % (Manual) 9.0 H Eosinophils % (Manual) 4.0 Basophils % (Manual) 0 Metamyelocytes % 0 Myelocytes % 0 Promyelocytes % 0 Blast Cells % 0 Nucleated RBC % Not Reportable Seg Neutrophils # Man 3.5 Band Neutrophils # 0.2 Lymphocytes # (Manual) 0.5 L Abs React Lymphs (Man) 0.0 Monocytes # (Manual) 0.4 Eosinophils # (Manual) 0.2 Basophils # (Manual) 0.0 Metamyelocytes # 0.0 Myelocytes # 0.0 Promyelocytes # 0.0 Blast Cells # 0.0 WBC Morphology Not Reportable Hypersegmented Neuts Not Reportable Hyposegmented Neuts Not Reportable Hypogranular Neuts Not Reportable Smudge Cells Not Reportable Toxic Granulation Not Reportable Toxic Vacuolation Not Reportable Dohle Bodies Not Reportable Pelger-Huet Anomaly Not Reportable Katia Rods Not Reportable Platelet Estimate Not Reportable Clumped Platelets Not Reportable Plt Clumps, EDTA Not Reportable Large Platelets Not Reportable Giant Platelets Not Reportable Platelet Satelliting Not Reportable Plt Morphology Comment Not Reportable RBC Morphology Not Reportable Dimorphic RBCs Yes Polychromasia Not Reportable Hypochromasia 2+ Poikilocytosis 2+ Anisocytosis 2+ Microcytosis 2+ Macrocytosis Not Reportable Spherocytes Not Reportable Pappenheimer Bodies Not Reportable Sickle Cells Not Reportable Target Cells Not Reportable Tear Drop Cells Not Reportable Ovalocytes Not Reportable Helmet Cells Not Reportable Suarez-Dilkon Bodies Not Reportable [place] Rings Not Reportable [place] Cells Not Reportable Bite Cells Not Reportable Crenated Cell Not Reportable Elliptocytes Few Acanthocytes (Spur) Not Reportable Rouleaux Not Reportable Hemoglobin C Crystals Not Reportable Schistocytes Few Malaria parasites Not Reportable Jl Bodies Not Reportable Hem Pathologist Commnt No Sodium 139 Potassium 4.1 Chloride 103.5 Carbon Dioxide 25 Anion Gap 15 BUN 11 Creatinine 0.5 L Estimated GFR > 60 BUN/Creatinine Ratio 22 Glucose 89 Calcium 8.5
[2018-05-05 07:08] LABS: Hemoglobin 8.4 gm/dl (11.8-15.2); Mean Corpuscular HGB Conc 32 % (32-34); Mean Corpuscular Volume 72 fl (84-94); Red Blood Count 3.64 M/mm3 (3.65-5.03)
[2018-05-05 07:17] LABS: Platelet Count 24 K/mm3 (140-440)
[2018-05-05 07:26] LABS: BUN/Creatinine Ratio 22; Blood Urea Nitrogen 11 mg/dL (9-20); Calcium 8.5 mg/dL (8.4-10.2); Hemolysis Index 36
[2018-05-05 08:19] LABS: Total Cells Counted 100
[2018-05-05 08:20] LABS: Anisocytosis 2+; Band Neutrophils # (Manual) 0.2 K/mm3; Basophils % (Manual) 0 % (0.0-1.8); Hypochromasia 2+; Poikilocytosis 2+
[2018-05-05 08:21] LABS: Dimorphic RBC Yes; Schistocytes Few
[2018-05-05] MEDS: PROTONIX IV SCH (10:53)
[2018-05-05] MEDS: FEOSOL PO SCH (10:53)
[2018-05-05] MEDS: FOLVITE PO SCH (10:53)
[2018-05-05] MEDS: SODIUM CHLORIDE FLUSH SYRINGE 10 ML IV SCH (10:54)
--- NOTE | 2018-05-05 11:58 | Gastroenterology Progress Note ---
<KEYANA SHER - Last Filed: 05/05/18 11:56> Assessment and Plan 1.anemia -H/H 8.4/26.0-stable -continue to monitor H/H and transfuse as needed -no active signs of bleeding -etiology-h/o chronic 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 -last EGD/colonoscopy 03/2017 showed multiple AVMs in proximal gut and in colon (ablated with APC) -clinically, patient is stable w/o GI complaints. Tolerating diet . -no recommendations for a repeat endoscopic evaluation at this time unless overt bleeding develops -continue daily PPI -continue iron supplement BID -avoid NSAIDs -continue supportive care -patient okay to be d/c per GI standpoint on lifelong iron therapy with follow up in clinic ~ 2 weeks to schedule outpatient pill camera -will sign off, please call if needed Subjective Date of service: 05/05/18 Principal diagnosis: anemia Interval history: No acute distress or GI complaints. No active signs of bleeding overnight. Objective - Constitutional Vitals: Temp Pulse Resp BP Pulse Ox 100.5 F H 79 20 119/54 97 05/05/18 08:00 05/05/18 08:01 05/05/18 08:01 05/05/18 08:01 05/05/18 08:01 General appearance: no acute distress - Respiratory Respiratory: bilateral: CTA - Cardiovascular Rhythm: regular Heart Sounds: Present: S1 & S2 - Gastrointestinal General gastrointestinal: Present: soft, non-tender, non-distended, normal bowel sounds - Neurologic Neurological: alert and oriented x3 - Labs CBC & Chem 7: 05/05/18 06:47 05/05/18 06:47 Labs: Laboratory Results - last 24 hr 05/05/18 05/05/18 06:47 06:47 WBC 4.9 RBC 3.64 L Hgb 8.4 L Hct 26.0 L MCV 72 L MCH 23 L MCHC 32 RDW 30.0 H Plt Count 24 L Add Manual Diff Complete Total Counted 100 Seg Neuts % (Manual) 72.0 H Band Neutrophils % 5.0 Lymphocytes % (Manual) 10.0 L Reactive Lymphs % (Man) 0 Monocytes % (Manual) 9.0 H Eosinophils % (Manual) 4.0 Basophils % (Manual) 0 Metamyelocytes % 0 Myelocytes % 0 Promyelocytes % 0 Blast Cells % 0 Nucleated RBC % Not Reportable Seg Neutrophils # Man 3.5 Band Neutrophils # 0.2 Lymphocytes # (Manual) 0.5 L Abs React Lymphs (Man) 0.0 Monocytes # (Manual) 0.4 Eosinophils # (Manual) 0.2 Basophils # (Manual) 0.0 Metamyelocytes # 0.0 Myelocytes # 0.0 Promyelocytes # 0.0 Blast Cells # 0.0 WBC Morphology Not Reportable Hypersegmented Neuts Not Reportable Hyposegmented Neuts Not Reportable Hypogranular Neuts Not Reportable Smudge Cells Not Reportable Toxic Granulation Not Reportable Toxic Vacuolation Not Reportable Dohle Bodies Not Reportable Pelger-Huet Anomaly Not Reportable Katia Rods Not Reportable Platelet Estimate Not Reportable Clumped Platelets Not Reportable Plt Clumps, EDTA Not Reportable Large Platelets Not Reportable Giant Platelets Not Reportable Platelet Satelliting Not Reportable Plt Morphology Comment Not Reportable RBC Morphology Not Reportable Dimorphic RBCs Yes Polychromasia Not Reportable Hypochromasia 2+ Poikilocytosis 2+ Anisocytosis 2+ Microcytosis 2+ Macrocytosis Not Reportable Spherocytes Not Reportable Pappenheimer Bodies Not Reportable Sickle Cells Not Reportable Target Cells Not Reportable Tear Drop Cells Not Reportable Ovalocytes Not Reportable Helmet Cells Not Reportable Su[place] Bodies Not Reportable [place] Rings Not Reportable [place] Cells Not Reportable Bite Cells Not Reportable Crenated Cell Not Reportable Elliptocytes Few Acanthocytes (Spur) Not Reportable Rouleaux Not Reportable Hemoglobin C Crystals Not Reportable Schistocytes Few Malaria parasites Not Reportable Jl Bodies Not Reportable Hem Pathologist Commnt No Sodium 139 Potassium 4.1 Chloride 103.5 Carbon Dioxide 25 Anion Gap 15 BUN 11 Creatinine 0.5 L Estimated GFR > 60 BUN/Creatinine Ratio 22 Glucose 89 Calcium 8.5 <ARCENIO HOLLEY - Last Filed: 05/05/18 16:10> Assessment and Plan pt seen and examined. agree with note above; needs to be on care home iron replacement therapy for known diffuse bowel avm's. avoid nsaid's. Objective - Constitutional Vitals: Temp Pulse Resp BP Pulse Ox 98.8 F 85 14 137/76 94 05/05/18 12:00 05/05/18 13:00 05/05/18 13:00 05/05/18 13:00 05/05/18 13:00 - Labs CBC & Chem 7: 05/05/18 06:47 05/05/18 06:47 Labs: Laboratory Results - last 24 hr 05/05/18 05/05/18 06:47 06:47 WBC 4.9 RBC 3.64 L Hgb 8.4 L Hct 26.0 L MCV 72 L MCH 23 L MCHC 32 RDW 30.0 H Plt Count 24 L Add Manual Diff Complete Total Counted 100 Seg Neuts % (Manual) 72.0 H Band Neutrophils % 5.0 Lymphocytes % (Manual) 10.0 L Reactive Lymphs % (Man) 0 Monocytes % (Manual) 9.0 H Eosinophils % (Manual) 4.0 Basophils % (Manual) 0 Metamyelocytes % 0 Myelocytes % 0 Promyelocytes % 0 Blast Cells % 0 Nucleated RBC % Not Reportable Seg Neutrophils # Man 3.5 Band Neutrophils # 0.2 Lymphocytes # (Manual) 0.5 L Abs React Lymphs (Man) 0.0 Monocytes # (Manual) 0.4 Eosinophils # (Manual) 0.2 Basophils # (Manual) 0.0 Metamyelocytes # 0.0 Myelocytes # 0.0 Promyelocytes # 0.0 Blast Cells # 0.0 WBC Morphology Not Reportable Hypersegmented Neuts Not Reportable Hyposegmented Neuts Not Reportable Hypogranular Neuts Not Reportable Smudge Cells Not Reportable Toxic Granulation Not Reportable Toxic Vacuolation Not Reportable Dohle Bodies Not Reportable Pelger-Huet Anomaly Not Reportable Katia Rods Not Reportable Platelet Estimate Not Reportable Clumped Platelets Not Reportable Plt Clumps, EDTA Not Reportable Large Platelets Not Reportable Giant Platelets Not Reportable Platelet Satelliting Not Reportable Plt Morphology Comment Not Reportable RBC Morphology Not Reportable Dimorphic RBCs Yes Polychromasia Not Reportable Hypochromasia 2+ Poikilocytosis 2+ Anisocytosis 2+ Microcytosis 2+ Macrocytosis Not Reportable Spherocytes Not Reportable Pappenheimer Bodies Not Reportable Sickle Cells Not Reportable Target Cells Not Reportable Tear Drop Cells Not Reportable Ovalocytes Not Reportable Helmet Cells Not Reportable Su[place] Bodies Not Reportable [place] Rings Not Reportable Luke Cells Not Reportable Bite Cells Not Reportable Crenated Cell Not Reportable Elliptocytes Few Acanthocytes (Spur) Not Reportable Rouleaux Not Reportable Hemoglobin C Crystals Not Reportable Schistocytes Few Malaria parasites Not Reportable Jl Bodies Not Reportable Hem Pathologist Commnt No Sodium 139 Potassium 4.1 Chloride 103.5 Carbon Dioxide 25 Anion Gap 15 BUN 11 Creatinine 0.5 L Estimated GFR > 60 BUN/Creatinine Ratio 22 Glucose 89 Calcium 8.5
--- NOTE | 2018-05-05 14:44 | Discharge Summary ---
Providers - Providers Date of Admission: 05/03/18 17:06 Date of discharge: 05/05/18 Attending physician: WOODROW BUTLER 05/03/18 18:39 Consult to Physician [CONS] Routine Comment: Consulting Provider: PENELOPE DIAS Physician Instructions: Reason For Exam: anemia Primary care physician: [facility] Hospitalization Reason for admission: symptomatic severe anemia Condition: Stable Procedures: 3 units of PRBC transfusion Hospital course: 61-year-old male patient with significant past medical history of recurrent GI bleeds secondary to AV malformations and iron deficiency anemia multiple transfusions in the past hepatitis C virus diabetes mellitus was admitted through emergency room with the generalized weakness and dizziness and near syncope patient was evaluated, Noted to have severe anemia with hemoglobin of 4 and hematocrit of 15, patient had symptomatic anemia, Admitted transfused 3 units of PRBC, evaluated by GI, patient had extensive workup in the past consistent with AV malformations, GI did not recommend any new endoscopic procedures After 2 units of PRBC hemoglobin improved to 8.4, no new episodes of bleeding Today patient is comfortable in no new complaints vital signs stable physical examination unremarkable Clear by GI for discharge and follow up in the office for further evaluation Patient is hemodynamically and clinically stable at discharge Discharge Diagnosis --Acute on chronic GI bleeding; history of AV malformations Closely monitor, GI consult --Acute on chronic blood loss anemia; hemoglobin 4 at the time of admission Received 3 units of PRBC today HB8.7 Closely monitor H&H additional transfusion as needed --Type 2 diabetes mellitus; Accu-Chek sliding scale coverage and ADA diet and insulin as needed --Iron deficiency anemia with chronic blood loss; Iron supplements and supportive care and blood transfusion as needed --Tobacco use; smoking cessation counseling, nicotine patch as needed --DVT prophylaxis; SCD Disposition: DC-01 TO HOME OR SELFCARE Time spent for discharge: 32 min Core Measure Documentation - Palliative Care Palliative Care/ Comfort Measures: Not Applicable - Core Measures Any of the following diagnoses?: none Exam - Constitutional Vitals: Temp Pulse Resp BP Pulse Ox 98.8 F 85 14 137/76 94 05/05/18 12:00 05/05/18 13:00 05/05/18 13:00 05/05/18 13:00 05/05/18 13:00 General appearance: Present: no acute distress, well-nourished - EENT Eyes: Present: PERRL, EOM intact - Neck Neck: Present: supple, normal ROM - Respiratory Respiratory effort: normal Respiratory: bilateral: diminished, negative: rales, rhonchi, wheezing - Cardiovascular Rhythm: regular Heart Sounds: Present: S1 & S2 - Extremities Extremities: no ischemia, No edema - Abdominal General gastrointestinal: Present: soft, non-tender, non-distended, normal bowel sounds - Integumentary Integumentary: Present: clear, warm - Musculoskeletal Musculoskeletal: strength equal bilaterally - Psychiatric Psychiatric: appropriate mood/affect, cooperative - Neurologic Neurologic: CNII-XII intact, moves all extremities Plan Activity: advance as tolerated Diet: regular Additional Instructions: If you have new episodes of GI bleeding contact M.D. or go to emergency room. GI in 2 weeks, possible outpatient Pill Cam study Follow up with: PRIMARY CAREMD [Primary Care Provider] - 7 Days MILANA SHEEHAN MD [Staff Physician] - 14 Days Prescriptions: Ferrous Sulfate [Feosol 325 MG tab] 325 mg PO BID #60 tablet Folic Acid [Folvite] 1 mg PO QDAY #30 tablet Pantoprazole [Protonix TAB] 40 mg PO BID #30 tablet
[2018-05-05 17:57] VITALS: BP 144/72
[2018-05-05] MEDS ORDERED: PROTONIX PO SCH (22:00)
== END 2018-05-05 17:45 | disposition home or self-care (01) | DRG 378 ==
LOC: ED 15:46 → IMCU 17:06 → CC1 05-04 08:54 → IMCU 05-04 09:16
PROVIDERS: ADMIT Internal Medicine; ATTEND Internal Medicine
PROC: 30233N1 Transfusion of Nonautologous Red Blood Cells into Peripheral Vein, Percutaneous Approach (ICD-10-PCS; principal; 2018-05-04)
DX: K55.21 Angiodysplasia of colon with hemorrhage (principal); F17.213 Nicotine dependence, cigarettes, with withdrawal; D62 Acute posthemorrhagic anemia; B19.20 Unspecified viral hepatitis C without hepatic coma; Z83.3 Family history of diabetes mellitus; Z71.6 Tobacco abuse counseling
CPT/HCPCS: 36415; 36430; 80048; 80053; 80076; 85007; 85025; 86850; 86900; 86901; 93005; 93010; 96360; G0378; C9113; J7040; P9016

== ENCOUNTER 2019-02-14 10:57 | Inpatient (IN) | payer OTHER ==
--- NOTE | 2019-02-14 11:31 | Emergency Department Report ---
Blank Doc - Documentation Documentation: 63-year-old male that presents with generlized weakness and dizziness. This initial assessment/diagnostic orders/clinical plan/treatment(s) is/are subject to change based on patient's health status, clinical progression and re- assessment by fellow clinical providers in the ED. Further treatment and workup at subsequent clinical providers discretion. Patient/guardians urged not to elope from the ED as their condition may be serious if not clinically assessed and managed. Initial orders include: 1- Patient sent to [facility] for further evaluation and treatment 2- labs 3- EKG 4- UA
[2019-02-14 12:38] LABS: INR 1.21 (0.87-1.13); Partial Thromboplastin Time 32.4 Sec. (24.2-36.6)
[2019-02-14 12:51] LABS: Alanine Aminotransferase 9 units/L (7-56); Albumin 3.8 g/dL (3.9-5); BUN/Creatinine Ratio 13; Blood Urea Nitrogen 8 mg/dL (9-20); Calcium 8.6 mg/dL (8.4-10.2); Hemolysis Index 0
--- NOTE | 2019-02-14 13:08 | Emergency Department Report ---
ED General Adult HPI - General Chief complaint: Weakness Stated complaint: LOW BLOOD Time Seen by Provider: 02/14/19 11:28 Source: patient Mode of arrival: Wheelchair Limitations: No Limitations - History of Present Illness Initial comments: The patient presents to the emergency department with a chief complaint of dizziness when standing up. Patient states that the last time this happened he needed a blood transfusion secondary to anemia. Patient states he has anemia frequently and does not know the cause of it. Patient denies any blood in the stool. Patient denies a room spinning states she is only dizzy when he tries to stand up. Patient denies slurred speech, facial droop, focal weakness. -: Gradual Severity scale (0 -10): 0 Improves with: none Worsens with: none Associated Symptoms: denies other symptoms Treatments Prior to Arrival: none - Related Data Previous Rx's Medication Instructions Recorded Last Taken Type Ferrous Sulfate [Feosol 325 MG tab] 325 mg PO BID #60 tablet 05/05/18 Unknown Rx Folic Acid [Folvite] 1 mg PO QDAY #30 tablet 05/05/18 Unknown Rx Pantoprazole [Protonix TAB] 40 mg PO BID #30 tablet 05/05/18 Unknown Rx Allergies Allergy/AdvReac Type Severity Reaction Status Date / Time No Known Allergies Allergy Verified 08/27/17 07:25 ED Review of Systems ROS: Stated complaint: LOW BLOOD Other details as noted in HPI Constitutional: denies: chills, fever Eyes: denies: eye pain, eye discharge, vision change ENT: denies: ear pain, throat pain Respiratory: denies: cough, shortness of breath, wheezing Cardiovascular: denies: chest pain, palpitations Endocrine: no symptoms reported Gastrointestinal: denies: abdominal pain, nausea, diarrhea Genitourinary: denies: urgency, dysuria Musculoskeletal: denies: back pain, joint swelling, arthralgia Skin: denies: rash, lesions Neurological: denies: headache, weakness, paresthesias Psychiatric: denies: anxiety, depression Hematological/Lymphatic: denies: easy bleeding, easy bruising ED Past Medical Hx - Past Medical History Previous Medical History?: Yes Hx Hypertension: No Hx Congestive Heart Failure: No Hx Diabetes: Yes Hx Sickle Cell Disease: No Hx Seizures: No Hx Asthma: No Hx COPD: No Hx Dementia: No Hx HIV: No Additional medical history: ANEMIA. Proximal gut and multiple colon AVM's (endoscopy/colonoscopy March 2017). hep C - Social History Smoking Status: Current Every Day Smoker Substance Use Type: None - Medications Home Medications: Home Medications Medication Instructions Recorded Confirmed Last Taken Type Ferrous Sulfate [Feosol 325 MG tab] 325 mg PO BID #60 tablet 05/05/18 Unknown Rx Folic Acid [Folvite] 1 mg PO QDAY #30 tablet 05/05/18 Unknown Rx Pantoprazole [Protonix TAB] 40 mg PO BID #30 tablet 05/05/18 Unknown Rx ED Physical Exam - General Limitations: No Limitations General appearance: alert, in no apparent distress - Head Head exam: Present: atraumatic, normocephalic - Eye Eye exam: Present: normal appearance, PERRL, EOMI - ENT ENT exam: Present: mucous membranes moist - Neck Neck exam: Present: normal inspection - Respiratory Respiratory exam: Present: normal lung sounds bilaterally. Absent: respiratory distress - Cardiovascular Cardiovascular Exam: Present: regular rate, normal rhythm. Absent: systolic murmur, diastolic murmur, rubs, gallop - GI/Abdominal GI/Abdominal exam: Present: soft, normal bowel sounds. Absent: distended, tenderness - Rectal Rectal exam: Present: deferred - Extremities Exam Extremities exam: Present: normal inspection - Back Exam Back exam: Present: normal inspection - Neurological Exam Neurological exam: Present: alert, oriented X3, CN II-XII intact. Absent: motor sensory deficit - Psychiatric Psychiatric exam: Present: normal affect, normal mood - Skin Skin exam: Present: warm, dry, intact, normal color. Absent: rash ED Course Vital Signs 02/14/19 02/14/19 02/14/19 11:17 11:28 11:47 Temperature 97.9 F 97.9 F Pulse Rate 95 H 90 Respiratory 18 Rate Blood Pressure 91/57 91/59 O2 Sat by Pulse 100 Oximetry 02/14/19 02/14/19 02/14/19 12:01 12:11 13:31 Temperature Pulse Rate 88 89 81 Respiratory 14 19 18 Rate Blood Pressure 117/45 117/45 106/58 O2 Sat by Pulse Oximetry ED Medical Decision Making - Lab Data Result diagrams: 02/14/19 13:23 02/14/19 12:22 Lab Results 02/14/19 02/14/19 02/14/19 Range/Units 12:22 12:22 13:23 WBC 3.6 L (4.5-11.0) K/mm3 RBC 2.51 L (3.65-5.03) M/mm3 Hgb 4.3 L* (11.8-15.2) gm/dl Hct 16.1 L* (35.5-45.6) % MCV 64 L (84-94) fl MCH 17 L (28-32) pg MCHC 27 L (32-34) % RDW 24.5 H (13.2-15.2) % Plt Count 245 (140-440) K/mm3 Add Manual Diff Complete Total Counted 100 Seg Neuts % (Manual) 65.0 (40.0-70.0) % Band Neutrophils % 0 % Lymphocytes % (Manual) 23.0 (13.4-35.0) % Reactive Lymphs % (Man) 0 % Monocytes % (Manual) 7.0 (0.0-7.3) % Eosinophils % (Manual) 4.0 (0.0-4.3) % Basophils % (Manual) 1.0 (0.0-1.8) % Metamyelocytes % 0 % Myelocytes % 0 % Promyelocytes % 0 % Blast Cells % 0 % Nucleated RBC % Not Reportable Seg Neutrophils # Man 2.3 (1.8-7.7) K/mm3 Band Neutrophils # 0.0 K/mm3 Lymphocytes # (Manual) 0.8 L (1.2-5.4) K/mm3 Abs React Lymphs (Man) 0.0 K/mm3 Monocytes # (Manual) 0.3 (0.0-0.8) K/mm3 Eosinophils # (Manual) 0.1 (0.0-0.4) K/mm3 Basophils # (Manual) 0.0 (0.0-0.1) K/mm3 Metamyelocytes # 0.0 K/mm3 Myelocytes # 0.0 K/mm3 Promyelocytes # 0.0 K/mm3 Blast Cells # 0.0 K/mm3 WBC Morphology Not Reportable Hypersegmented Neuts Not Reportable Hyposegmented Neuts Not Reportable Hypogranular Neuts Not Reportable Smudge Cells Not Reportable Toxic Granulation Not Reportable Toxic Vacuolation Not Reportable Dohle Bodies Not Reportable Pelger-Huet Anomaly Not Reportable Katia Rods Not Reportable Platelet Estimate Consistent w auto Clumped Platelets Not Reportable Plt Clumps, EDTA Not Reportable Large Platelets Not Reportable Giant Platelets Not Reportable Platelet Satelliting Not Reportable Plt Morphology Comment Not Reportable RBC Morphology Not Reportable Dimorphic RBCs Not Reportable Polychromasia Not Reportable Hypochromasia 3+ Poikilocytosis Few Anisocytosis 3+ Microcytosis 1+ Macrocytosis Not Reportable Spherocytes Not Reportable Pappenheimer Bodies Not Reportable Sickle Cells Not Reportable Target Cells Not Reportable Tear Drop Cells Few Ovalocytes Few Helmet Cells Not Reportable Suarez-[place] Bodies Not Reportable [place] Rings Not Reportable Luke Cells Not Reportable Bite Cells Not Reportable Crenated Cell Not Reportable Elliptocytes Few Acanthocytes (Spur) Not Reportable Rouleaux Not Reportable Hemoglobin C Crystals Not Reportable Schistocytes Not Reportable Malaria parasites Not Reportable Jl Bodies Not Reportable Hem Pathologist Commnt No PT 15.2 H (12.2-14.9) Sec. INR 1.21 H (0.87-1.13) APTT 32.4 (24.2-36.6) Sec. Sodium 143 (137-145) mmol/L Potassium 4.2 (3.6-5.0) mmol/L Chloride 106.9 (98-107) mmol/L Carbon Dioxide 25 (22-30) mmol/L Anion Gap 15 mmol/L BUN 8 L (9-20) mg/dL Creatinine 0.6 L (0.8-1.5) mg/dL Estimated GFR > 60 ml/min BUN/Creatinine Ratio 13 % Glucose 114 H (75-100) mg/dL Calcium 8.6 (8.4-10.2) mg/dL Total Bilirubin 0.50 (0.1-1.2) mg/dL AST 15 (5-40) units/L ALT 9 (7-56) units/L Alkaline Phosphatase 71 (35-129) units/L Total Protein 6.7 (6.3-8.2) g/dL Albumin 3.8 L (3.9-5) g/dL Albumin/Globulin Ratio 1.3 % - Radiology Data Radiology results: report reviewed - Medical Decision Making Results discussed with patient Patient states he has had workups in the past for his anemia and has not been told the reasoning for his anemia Critical Care Time: Yes Critical care time in (mins) excluding proc time.: 35 Critical care attestation.: If time is entered above; I have spent that time in minutes in the direct care of this critically ill patient, excluding procedure time. ED Disposition Clinical Impression: Anemia requiring transfusions Disposition: OP ADMIT IP TO THIS HOSP Is pt being admited?: Yes Does the pt Need Aspirin: No Condition: Fair
--- NOTE | 2019-02-14 13:28 | Cat Scan Report ---
CT HEAD WITHOUT CONTRAST INDICATION / CLINICAL INFORMATION: dizziness. TECHNIQUE: Axial imaging performed from the skull apex through the skull base without the use of cont rast. Sagittal and coronal reformatted images. All CT scans at this location are performed using CT dose reduction for ALARA by means of automated exposure control. COMPARISON: None available. FINDINGS: CEREBRAL PARENCHYMA: No significant abnormality. No acute territorial infarct. HEMORRHAGE: None. EXTRA-AXIAL SPACES: Normal in size and morphology for the patient's age. VENTRICULAR SYSTEM: Normal in size and morphology for the patient's age. MIDLINE SHIFT OR HERNIATION: None. CEREBELLUM / BRAINSTEM: No significant abnormality. CALVARIUM: No significant abnormality. ORBITS: Normal as visualized. PARANASAL SINUSES / MASTOID AIR CELLS: Normal as visualized. SOFT TISSUES of HEAD: No significant abnormality. ADDITIONAL FINDINGS: None. IMPRESSION: No acute intracranial abnormality. Signer Name: Rich Espinosa Jr, MD Signed: 02/14/2019 1:23 PM Workstation Name: [id number]
[2019-02-14 13:40] LABS: Mean Corpuscular HGB Conc 27 % (32-34); Platelet Count 245 K/mm3 (140-440); Red Blood Count 2.51 M/mm3 (3.65-5.03)
[2019-02-14 13:56] LABS: Hematocrit 16.1 % (35.5-45.6); Hemoglobin 4.3 gm/dl (11.8-15.2); Mean Corpuscular Volume 64 fl (84-94); Red Cell Distribution Width 24.5 % (13.2-15.2)
[2019-02-14] MEDS ORDERED: SODIUM CHLORIDE 0.9% 500 ML 500 ML IV ONE (14:30)
[2019-02-14 14:45] LABS: Anisocytosis 3+; Hypochromasia 3+; Total Cells Counted 100
[2019-02-14 14:46] LABS: Ovalocytes Few; Platelet Estimate Consistent w Auto; Poikilocytosis Few; Tear Drop Cells Few
[2019-02-14] MEDS ORDERED: SODIUM CHLORIDE 0.9% 500 ML 500 ML ONE (18:30)
[2019-02-14 18:46] LABS: Bilirubin,Urine NEG (Negative); Blood,Urine NEG (Negative); Color,Urine Yellow (Yellow); Protein,Urine <15 mg/dL mg/dL (Negative); WBC,Urine < 1.0 /HPF (0.0-6.0)
[2019-02-14] MEDS ORDERED: HYDROmorphone 1 MG/1 ML INJ IV PRN (21:59)
[2019-02-14] MEDS ORDERED: METOCLOPRAMIDE 10 MG/2 ML INJ IV PRN (21:59)
[2019-02-14] MEDS ORDERED: oxyCODONE /ACETAMINOPHEN 5-325MG TAB PO PRN (21:59)
[2019-02-14] MEDS ORDERED: ONDANSETRON 4 MG/2 ML INJ IV PRN (21:59)
[2019-02-14] MEDS ORDERED: ACETAMINOPHEN 325 MG TAB PO PRN (21:59)
--- NOTE | 2019-02-14 22:07 | History and Physical Report ---
History of Present Illness Date of examination: 02/14/19 Date of admission: 02/14/19 16:46 Chief complaint: Severe Weakness and Light headedness --1 week History of present illness: The patient presents to the emergency department with a chief complaint of dizziness and light headedness when standing up. Patient states that the last time this happened he needed a blood transfusion secondary to anemia. Patient states he has anemia frequently and does not know the cause of it. Patient denies any blood in the stool. Patient denies a room spinning. states he is only dizzy when he tries to stand up. Patient denies slurred speech, facial droop, focal weakness.No black tarry stools or hematemesis or coffee ground emesis. Past Medical History Previous Medical History?: Yes Diabetes: Yes Additional medical history: ANEMIA. Proximal gut and multiple colon AVM's (endo scopy/colonoscopy March 2017). hep C Surgery history None Social History Smoking Status: Current Every Day Smoker Substance Use Type: None Family History Htn - Medications Home Medications: Home Medications Medication Instructions Recorded Confirmed Last Taken Type Ferrous Sulfate [Feosol 325 MG tab] 325 mg PO BID #60 tablet 05/05/18 Unknown Rx Folic Acid [Folvite] 1 mg PO QDAY #30 tablet 05/05/18 Unknown Rx Pantoprazole [Protonix TAB] 40 mg PO BID #30 tablet 05/05/18 Unknown Rx Review of Systems ROS: Stated complaint: LOW BLOOD Other details as noted in HPI Constitutional: denies: chills, fever Eyes: denies: eye pain, eye discharge, vision change ENT: denies: ear pain, throat pain Respiratory: denies: cough, shortness of breath, wheezing Cardiovascular: denies: chest pain, palpitations Endocrine: no symptoms reported Gastrointestinal: denies: abdominal pain, nausea, diarrhea Genitourinary: denies: urgency, dysuria Musculoskeletal: denies: back pain, joint swelling, arthralgia Skin: denies: rash, lesions Neurological: denies: headache, weakness, paresthesias Psychiatric: denies: anxiety, depression Hematological/Lymphatic: denies: easy bleeding, easy bruising Medications and Allergies Allergies Allergy/AdvReac Type Severity Reaction Status Date / Time No Known Allergies Allergy Verified 08/27/17 07:25 Home Medications Medication Instructions Recorded Confirmed Last Taken Type Ferrous Sulfate [Feosol 325 MG tab] 325 mg PO BID #60 tablet 05/05/18 Unknown Rx Folic Acid [Folvite] 1 mg PO QDAY #30 tablet 05/05/18 Unknown Rx Pantoprazole [Protonix TAB] 40 mg PO BID #30 tablet 05/05/18 Unknown Rx Exam - Constitutional Vitals: Temp Pulse Resp BP Pulse Ox 98.1 F 82 20 114/59 100 02/14/19 20:23 02/14/19 19:35 02/14/19 19:35 02/14/19 19:35 02/14/19 19:35 General appearance: Present: no acute distress, well-nourished - EENT Eyes: Present: PERRL ENT: hearing intact, clear oral mucosa, other (Pale mucous membranes and Conjunctiva) - Neck Neck: Present: supple, normal ROM - Respiratory Respiratory effort: normal Respiratory: bilateral: CTA - Cardiovascular Heart rate: 78 Rhythm: regular Heart Sounds: Present: S1 & S2. Absent: rub, click - Extremities Extremities: no ischemia, pulses intact, pulses symmetrical, No edema Peripheral Pulses: within normal limits - Abdominal General gastrointestinal: Present: soft, non-tender, non-distended, normal bowel sounds Male genitourinary: Present: normal - Rectal Rectal Exam: stool brown (OB negative) - Integumentary Integumentary: Present: clear, warm, dry - Musculoskeletal Musculoskeletal: gait normal, strength equal bilaterally - Psychiatric Psychiatric: appropriate mood/affect, intact judgment & insight - Neurologic Neurologic: CNII-XII intact, moves all extremities - Allied Health Allied health notes reviewed: nursing, case management Results - Labs CBC & Chem 7: 02/14/19 13:23 02/14/19 12:22 Labs: Laboratory Last Values WBC 3.6 K/mm3 (4.5-11.0) L 02/14/19 13:23 RBC 2.51 M/mm3 (3.65-5.03) L 02/14/19 13:23 Hgb 4.3 gm/dl (11.8-15.2) L* 02/14/19 13:23 Hct 16.1 % (35.5-45.6) L* 02/14/19 13:23 MCV 64 fl (84-94) L 02/14/19 13:23 MCH 17 pg (28-32) L 02/14/19 13:23 MCHC 27 % (32-34) L 02/14/19 13:23 RDW 24.5 % (13.2-15.2) H 02/14/19 13:23 Plt Count 245 K/mm3 (140-440) 02/14/19 13:23 Add Manual Diff Complete 02/14/19 13:23 Total Counted 100 02/14/19 13:23 Seg Neuts % (Manual) 65.0 % (40.0-70.0) 02/14/19 13:23 Band Neutrophils % 0 % 02/14/19 13:23 Lymphocytes % (Manual) 23.0 % (13.4-35.0) 02/14/19 13:23 Reactive Lymphs % (Man) 0 % 02/14/19 13:23 Monocytes % (Manual) 7.0 % (0.0-7.3) 02/14/19 13:23 Eosinophils % (Manual) 4.0 % (0.0-4.3) 02/14/19 13:23 Basophils % (Manual) 1.0 % (0.0-1.8) 02/14/19 13:23 Metamyelocytes % 0 % 02/14/19 13:23 Myelocytes % 0 % 02/14/19 13:23 Promyelocytes % 0 % 02/14/19 13:23 Blast Cells % 0 % 02/14/19 13:23 Nucleated RBC % Not Reportable 02/14/19 13:23 Seg Neutrophils # Man 2.3 K/mm3 (1.8-7.7) 02/14/19 13:23 Band Neutrophils # 0.0 K/mm3 02/14/19 13:23 Lymphocytes # (Manual) 0.8 K/mm3 (1.2-5.4) L 02/14/19 13:23 Abs React Lymphs (Man) 0.0 K/mm3 02/14/19 13:23 Monocytes # (Manual) 0.3 K/mm3 (0.0-0.8) 02/14/19 13:23 Eosinophils # (Manual) 0.1 K/mm3 (0.0-0.4) 02/14/19 13:23 Basophils # (Manual) 0.0 K/mm3 (0.0-0.1) 02/14/19 13:23 Metamyelocytes # 0.0 K/mm3 02/14/19 13:23 Myelocytes # 0.0 K/mm3 02/14/19 13:23 Promyelocytes # 0.0 K/mm3 02/14/19 13:23 Blast Cells # 0.0 K/mm3 02/14/19 13:23 WBC Morphology Not Reportable 02/14/19 13:23 Hypersegmented Neuts Not Reportable 02/14/19 13:23 Hyposegmented Neuts Not Reportable 02/14/19 13:23 Hypogranular Neuts Not Reportable 02/14/19 13:23 Smudge Cells Not Reportable 02/14/19 13:23 Toxic Granulation Not Reportable 02/14/19 13:23 Toxic Vacuolation Not Reportable 02/14/19 13:23 Dohle Bodies Not Reportable 02/14/19 13:23 Pelger-Huet Anomaly Not Reportable 02/14/19 13:23 Katia Rods Not Reportable 02/14/19 13:23 Platelet Estimate Consistent w auto 02/14/19 13:23 Clumped Platelets Not Reportable 02/14/19 13:23 Plt Clumps, EDTA Not Reportable 02/14/19 13:23 Large Platelets Not Reportable 02/14/19 13:23 Giant Platelets Not Reportable 02/14/19 13:23 Platelet Satelliting Not Reportable 02/14/19 13:23 Plt Morphology Comment Not Reportable 02/14/19 13:23 RBC Morphology Not Reportable 02/14/19 13:23 Dimorphic RBCs Not Reportable 02/14/19 13:23 Polychromasia Not Reportable 02/14/19 13:23 Hypochromasia 3+ 02/14/19 13:23 Poikilocytosis Few 02/14/19 13:23 Anisocytosis 3+ 02/14/19 13:23 Microcytosis 1+ 02/14/19 13:23 Macrocytosis Not Reportable 02/14/19 13:23 Spherocytes Not Reportable 02/14/19 13:23 Pappenheimer Bodies Not Reportable 02/14/19 13:23 Sickle Cells Not Reportable 02/14/19 13:23 Target Cells Not Reportable 02/14/19 13:23 Tear Drop Cells Few 02/14/19 13:23 Ovalocytes Few 02/14/19 13:23 Helmet Cells Not Reportable 02/14/19 13:23 Suarez-[place] Bodies Not Reportable 02/14/19 13:23 [place] Rings Not Reportable 02/14/19 13:23 Luke Cells Not Reportable 02/14/19 13:23 Bite Cells Not Reportable 02/14/19 13:23 Crenated Cell Not Reportable 02/14/19 13:23 Elliptocytes Few 02/14/19 13:23 Acanthocytes (Spur) Not Reportable 02/14/19 13:23 Rouleaux Not Reportable 02/14/19 13:23 Hemoglobin C Crystals Not Reportable 02/14/19 13:23 Schistocytes Not Reportable 02/14/19 13:23 Malaria parasites Not Reportable 02/14/19 13:23 Jl Bodies Not Reportable 02/14/19 13:23 Hem Pathologist Commnt No 02/14/19 13:23 PT 15.2 Sec. (12.2-14.9) H 02/14/19 12:22 INR 1.21 (0.87-1.13) H 02/14/19 12:22 APTT 32.4 Sec. (24.2-36.6) 02/14/19 12:22 Sodium 143 mmol/L (137-145) 02/14/19 12:22 Potassium 4.2 mmol/L (3.6-5.0) 02/14/19 12:22 Chloride 106.9 mmol/L (98-107) 02/14/19 12:22 Carbon Dioxide 25 mmol/L (22-30) 02/14/19 12:22 Anion Gap 15 mmol/L 02/14/19 12:22 BUN 8 mg/dL (9-20) L 02/14/19 12:22 Creatinine 0.6 mg/dL (0.8-1.5) L 02/14/19 12:22 Estimated GFR > 60 ml/min 02/14/19 12:22 BUN/Creatinine Ratio 13 % 02/14/19 12:22 Glucose 114 mg/dL (75-100) H 02/14/19 12:22 POC Glucose 97 (70-105) 02/14/19 18:25 Calcium 8.6 mg/dL (8.4-10.2) 02/14/19 12:22 Total Bilirubin 0.50 mg/dL (0.1-1.2) 02/14/19 12:22 AST 15 units/L (5-40) 02/14/19 12:22 ALT 9 units/L (7-56) 02/14/19 12:22 Alkaline Phosphatase 71 units/L (35-129) 02/14/19 12:22 Total Protein 6.7 g/dL (6.3-8.2) 02/14/19 12:22 Albumin 3.8 g/dL (3.9-5) L 02/14/19 12:22 Albumin/Globulin Ratio 1.3 % 02/14/19 12:22 Urine Color Yellow (Yellow) 02/14/19 14:00 Urine Turbidity Clear (Clear) 02/14/19 14:00 Urine pH 5.0 (5.0-7.0) 02/14/19 14:00 Ur Specific [place] 1.014 (1.003-1.030) 02/14/19 14:00 Urine Protein <15 mg/dl mg/dL (Negative) 02/14/19 14:00 Urine Glucose (UA) Neg mg/dL (Negative) 02/14/19 14:00 Urine Ketones Neg mg/dL (Negative) 02/14/19 14:00 Urine Blood Neg (Negative) 02/14/19 14:00 Urine Nitrite Neg (Negative) 02/14/19 14:00 Urine Bilirubin Neg (Negative) 02/14/19 14:00 Urine Urobilinogen 4.0 mg/dL (<2.0) 02/14/19 14:00 Ur Leukocyte Esterase Neg (Negative) 02/14/19 14:00 Urine WBC (Auto) < 1.0 /HPF (0.0-6.0) 02/14/19 14:00 Urine RBC (Auto) 2.0 /HPF (0.0-6.0) 02/14/19 14:00 U Epithel Cells (Auto) < 1.0 /HPF (0-13.0) 02/14/19 14:00 Blood Type A POSITIVE 02/14/19 15:15 Antibody Screen TNR 02/14/19 15:15 JYOTI Antibody Screen Negative 02/14/19 15:15 Crossmatch See Detail 02/14/19 15:15 Short CBC 02/14/19 Range/Units 13:23 WBC 3.6 L (4.5-11.0) K/mm3 Hgb 4.3 L* (11.8-15.2) gm/dl Hct 16.1 L* (35.5-45.6) % Plt Count 245 (140-440) K/mm3 BMP 02/14/19 12:22 Sodium 143 Potassium 4.2 Chloride 106.9 Carbon Dioxide 25 BUN 8 L Creatinine 0.6 L Glucose 114 H Calcium 8.6 Liver Function 02/14/19 Range/Units 12:22 Total Bilirubin 0.50 (0.1-1.2) mg/dL AST 15 (5-40) units/L ALT 9 (7-56) units/L Alkaline Phosphatase 71 (35-129) units/L Albumin 3.8 L (3.9-5) g/dL Urine 02/14/19 Range/Units 14:00 Urine Color Yellow (Yellow) Urine pH 5.0 (5.0-7.0) Ur Specific [place] 1.014 (1.003-1.030) Urine Protein <15 mg/dl (Negative) mg/dL Urine Glucose (UA) Neg (Negative) mg/dL - Imaging and Cardiology CT Scan - head: report reviewed (NAF) Assessment and Plan Advance Directives: Yes (Full code) VTE prophylaxis?: Chemical Plan of care discussed with patient/family: Yes - Patient Problems (1) Symptomatic anemia Current Visit: No Status: Acute Plan to address problem: Transfuse 3 units of PRBC Anemia work up Rule out Colon malignancies /Bleeding polyps GI consult requested Abd CT ordered to r/o malignancies (2) GERD (gastroesophageal reflux disease) Current Visit: Yes Status: Chronic Plan to address problem: On PPI's (3) DVT prophylaxis Current Visit: No Status: Acute Plan to address problem: On Heparin and GI prophylaxis
[2019-02-14] MEDS: SODIUM CHLORIDE 0.9% 1000 ML 1,000 ML IV SCH (22:33)
[2019-02-14] MEDS: FAMOTIDINE 20 MG/2 ML INJ IV SCH (22:34)
--- NOTE | 2019-02-15 10:00 | Gastroenterology Consultation ---
History of Present Illness - Reason for Consult Consult date: 02/15/19 anemia Requesting physician: ELIDIA HERNANDEZ - History of Present Illness Patient is a 63 y/o male with PMH of DM, hepatitis C (s/p treatement), and chronic anemia who presented to ED with c/o dizziness/lightheadedness and was admitted for recurrent anemia upon admission with H/H 4.3/16.1 to which GI has been consulted. Patient is well know to our service. 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 His last EGD/colonoscopy was in March 2017 with AVMs in upper/lower GI tract ablated with APC with recommendations given for chronic PPI/iron supplement (has seen [facility] in the past for IV infusions) and a pill camera as outpatient to r/o small bowel AVMs, which patient has not followed up in clinic to have done.This morning patient was resting in bed w/o acute distress. Reports dizziness now being improved s/p blood transfusion. Has no active signs of bleeding such as he matemesis, melena, or hematochezia. Last BM was a couple of days ago with brown stool per pt report. Denies fever, CP, SOB, wt loss, abd pain, N/V, diarrhea, or constipation. Tolerating diet. No NSAID use. Admits to being non-compliant with iron supplement at home as previously recommended. Past History Past Medical History: other (as per HPI) Past Surgical History: Other (EGD/colonoscopy 03/2017) Social history: smoking. denies: alcohol abuse Family history: diabetes, hypertension Medications and Allergies Allergies Allergy/AdvReac Type Severity Reaction Status Date / Time No Known Allergies Allergy Verified 08/27/17 07:25 Home Medications Medication Instructions Recorded Confirmed Last Taken Type Ferrous Sulfate [Feosol 325 MG tab] 325 mg PO BID #60 tablet 05/05/18 Unknown Rx Folic Acid [Folvite] 1 mg PO QDAY #30 tablet 05/05/18 Unknown Rx Pantoprazole [Protonix TAB] 40 mg PO BID #30 tablet 05/05/18 Unknown Rx Active Meds: Active Medications Acetaminophen (Tylenol) 650 mg PO Q4H PRN PRN Reason: Pain MILD(1-3)/Fever >100.5/DURÁN Famotidine (Pepcid) 20 mg IV BID [facility] Last Admin: 02/14/19 22:34 Dose: 20 mg Documented by: Hydromorphone HCl (Dilaudid) 0.5 mg IV Q3H PRN PRN Reason: Pain , Severe (7-10) Sodium Chloride (Nacl 0.9% 1000 Ml) 1,000 mls @ 75 mls/hr IV DIRECT [facility] Last Admin: 02/14/19 22:33 Dose: 75 mls/hr Documented by: Metoclopramide HCl (Reglan) 10 mg IV Q6H PRN PRN Reason: Nausea And Vomiting Ondansetron HCl (Zofran) 4 mg IV Q8H PRN PRN Reason: Nausea And Vomiting Oxycodone/Acetaminophen (Percocet 5/325) 1 tab PO Q6H PRN PRN Reason: Pain, Moderate (4-6) Sodium Chloride (Sodium Chloride Flush Syringe 10 Ml) 10 ml IV BID [facility] Last Admin: 02/14/19 22:34 Dose: 10 ml Documented by: Sodium Chloride (Sodium Chloride Flush Syringe 10 Ml) 10 ml IV PRN PRN PRN Reason: LINE FLUSH medications reviewed/updated as required Review of Systems - Review of Systems All systems: negative Constitutional: other (lightheaded/dizziness) Gastrointestinal: no abdominal pain, no nausea, no vomiting, no hematemesis, no coffee ground emesis, no BRBPR, no melena, no hematochezia Exam - Constitutional Vital Signs: Temp Pulse Resp BP Pulse Ox 98.5 F 132 H 79 H 132/63 19 L 02/15/19 05:57 02/15/19 05:57 02/15/19 05:57 02/15/19 05:57 02/15/19 05:57 General appearance: no acute distress - EENT Eyes: PERRL, EOM intact ENT: hearing intact - Respiratory Respiratory effort: normal Respiratory: bilateral: CTA - Cardiovascular Rhythm: regular - Gastrointestinal General gastrointestinal: Present: soft, non-tender, non-distended, normal bowel sounds - Integumentary Integumentary: Present: warm, dry - Neurologic Neurological: alert and oriented x3 - Labs CBC & Chem 7: 02/14/19 13:23 02/14/19 12:22 Lab Results: Laboratory Results - last 24 hr 02/14/19 02/14/19 02/14/19 12:22 12:22 13:23 WBC 3.6 L RBC 2.51 L Hgb 4.3 L* Hct 16.1 L* MCV 64 L MCH 17 L MCHC 27 L RDW 24.5 H Plt Count 245 Add Manual Diff Complete Total Counted 100 Seg Neuts % (Manual) 65.0 Band Neutrophils % 0 Lymphocytes % (Manual) 23.0 Reactive Lymphs % (Man) 0 Monocytes % (Manual) 7.0 Eosinophils % (Manual) 4.0 Basophils % (Manual) 1.0 Metamyelocytes % 0 Myelocytes % 0 Promyelocytes % 0 Blast Cells % 0 Nucleated RBC % Not Reportable Seg Neutrophils # Man 2.3 Band Neutrophils # 0.0 Lymphocytes # (Manual) 0.8 L Abs React Lymphs (Man) 0.0 Monocytes # (Manual) 0.3 Eosinophils # (Manual) 0.1 Basophils # (Manual) 0.0 Metamyelocytes # 0.0 Myelocytes # 0.0 Promyelocytes # 0.0 Blast Cells # 0.0 WBC Morphology Not Reportable Hypersegmented Neuts Not Reportable Hyposegmented Neuts Not Reportable Hypogranular Neuts Not Reportable Smudge Cells Not Reportable Toxic Granulation Not Reportable Toxic Vacuolation Not Reportable Dohle Bodies Not Reportable Pelger-Huet Anomaly Not Reportable Katia Rods Not Reportable Platelet Estimate Consistent w auto Clumped Platelets Not Reportable Plt Clumps, EDTA Not Reportable Large Platelets Not Reportable Giant Platelets Not Reportable Platelet Satelliting Not Reportable Plt Morphology Comment Not Reportable RBC Morphology Not Reportable Dimorphic RBCs Not Reportable Polychromasia Not Reportable Hypochromasia 3+ Poikilocytosis Few Anisocytosis 3+ Microcytosis 1+ Macrocytosis Not Reportable Spherocytes Not Reportable Pappenheimer Bodies Not Reportable Sickle Cells Not Reportable Target Cells Not Reportable Tear Drop Cells Few Ovalocytes Few Helmet Cells Not Reportable Suarez-Gamaliel Bodies Not Reportable [place] Rings Not Reportable Luke Cells Not Reportable Bite Cells Not Reportable Crenated Cell Not Reportable Elliptocytes Few Acanthocytes (Spur) Not Reportable Rouleaux Not Reportable Hemoglobin C Crystals Not Reportable Schistocytes Not Reportable Malaria parasites Not Reportable Jl Bodies Not Reportable Hem Pathologist Commnt No PT 15.2 H INR 1.21 H APTT 32.4 Sodium 143 Potassium 4.2 Chloride 106.9 Carbon Dioxide 25 Anion Gap 15 BUN 8 L Creatinine 0.6 L Estimated GFR > 60 BUN/Creatinine Ratio 13 Glucose 114 H POC Glucose Hemoglobin A1c Calcium 8.6 Total Bilirubin 0.50 AST 15 ALT 9 Alkaline Phosphatase 71 Total Protein 6.7 Albumin 3.8 L Albumin/Globulin Ratio 1.3 Urine Color Urine Turbidity Urine pH Ur Specific [place] Urine Protein Urine Glucose (UA) Urine Ketones Urine Blood Urine Nitrite Urine Bilirubin Urine Urobilinogen Ur Leukocyte Esterase Urine WBC (Auto) Urine RBC (Auto) U Epithel Cells (Auto) Blood Type Antibody Screen JYOTI Antibody Screen Crossmatch 02/14/19 02/14/19 02/14/19 13:25 14:00 15:15 WBC RBC Hgb Hct MCV MCH MCHC RDW Plt Count Add Manual Diff Total Counted Seg Neuts % (Manual) Band Neutrophils % Lymphocytes % (Manual) Reactive Lymphs % (Man) Monocytes % (Manual) Eosinophils % (Manual) Basophils % (Manual) Metamyelocytes % Myelocytes % Promyelocytes % Blast Cells % Nucleated RBC % Seg Neutrophils # Man Band Neutrophils # Lymphocytes # (Manual) Abs React Lymphs (Man) Monocytes # (Manual) Eosinophils # (Manual) Basophils # (Manual) Metamyelocytes # Myelocytes # Promyelocytes # Blast Cells # WBC Morphology Hypersegmented Neuts Hyposegmented Neuts Hypogranular Neuts Smudge Cells Toxic Granulation Toxic Vacuolation Dohle Bodies Pelger-Huet Anomaly Katia Rods Platelet Estimate Clumped Platelets Plt Clumps, EDTA Large Platelets Giant Platelets Platelet Satelliting Plt Morphology Comment RBC Morphology Dimorphic RBCs Polychromasia Hypochromasia Poikilocytosis Anisocytosis Microcytosis Macrocytosis Spherocytes Pappenheimer Bodies Sickle Cells Target Cells Tear Drop Cells Ovalocytes Helmet Cells Suarez-Gamaliel Bodies [place] Rings [place] Cells Bite Cells Crenated Cell Elliptocytes Acanthocytes (Spur) Rouleaux Hemoglobin C Crystals Schistocytes Malaria parasites Jl Bodies Hem Pathologist Commnt PT INR APTT Sodium Potassium Chloride Carbon Dioxide Anion Gap BUN Creatinine Estimated GFR BUN/Creatinine Ratio Glucose POC Glucose Hemoglobin A1c 8.6 H Calcium Total Bilirubin AST ALT Alkaline Phosphatase Total Protein Albumin Albumin/Globulin Ratio Urine Color Yellow Urine Turbidity Clear Urine pH 5.0 Ur Specific [place] 1.014 Urine Protein <15 mg/dl Urine Glucose (UA) Neg Urine Ketones Neg Urine Blood Neg Urine Nitrite Neg Urine Bilirubin Neg Urine Urobilinogen 4.0 Ur Leukocyte Esterase Neg Urine WBC (Auto) < 1.0 Urine RBC (Auto) 2.0 U Epithel Cells (Auto) < 1.0 Blood Type A POSITIVE Antibody Screen TNR JYOTI Antibody Screen Negative Crossmatch See Detail 02/14/19 18:25 WBC RBC Hgb Hct MCV MCH MCHC RDW Plt Count Add Manual Diff Total Counted Seg Neuts % (Manual) Band Neutrophils % Lymphocytes % (Manual) Reactive Lymphs % (Man) Monocytes % (Manual) Eosinophils % (Manual) Basophils % (Manual) Metamyelocytes % Myelocytes % Promyelocytes % Blast Cells % Nucleated RBC % Seg Neutrophils # Man Band Neutrophils # Lymphocytes # (Manual) Abs React Lymphs (Man) Monocytes # (Manual) Eosinophils # (Manual) Basophils # (Manual) Metamyelocytes # Myelocytes # Promyelocytes # Blast Cells # WBC Morphology Hypersegmented Neuts Hyposegmented Neuts Hypogranular Neuts Smudge Cells Toxic Granulation Toxic Vacuolation Dohle Bodies Pelger-Huet Anomaly Katia Rods Platelet Estimate Clumped Platelets Plt Clumps, EDTA Large Platelets Giant Platelets Platelet Satelliting Plt Morphology Comment RBC Morphology Dimorphic RBCs Polychromasia Hypochromasia Poikilocytosis Anisocytosis Microcytosis Macrocytosis Spherocytes Pappenheimer Bodies Sickle Cells Target Cells Tear Drop Cells Ovalocytes Helmet Cells Suarez-Gamaliel Bodies [place] Rings [place] Cells Bite Cells Crenated Cell Elliptocytes Acanthocytes (Spur) Rouleaux Hemoglobin C Crystals Schistocytes Malaria parasites Jl Bodies Hem Pathologist Commnt PT INR APTT Sodium Potassium Chloride Carbon Dioxide Anion Gap BUN Creatinine Estimated GFR BUN/Creatinine Ratio Glucose POC Glucose 97 Hemoglobin A1c Calcium Total Bilirubin AST ALT Alkaline Phosphatase Total Protein Albumin Albumin/Globulin Ratio Urine Color Urine Turbidity Urine pH Ur Specific [place] Urine Protein Urine Glucose (UA) Urine Ketones Urine Blood Urine Nitrite Urine Bilirubin Urine Urobilinogen Ur Leukocyte Esterase Urine WBC (Auto) Urine RBC (Auto) U Epithel Cells (Auto) Blood Type Antibody Screen JYOTI Antibody Screen Crossmatch Assessment and Plan 1.acute on chronic anemia -HGB 4.3/16.1 on admission-s/p blood transfusion overnight with repeat H/H pending to today -continue to monitor H/H and transfuse as needed -hold blood thinning medications -no active signs of bleeding; HD stable w/o GI complaints. Tolerating diet. -etiology- likely due to chronic blood loss -pt has a h/o chronic 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 -last EGD/colonoscopy 03/2017 showed multiple AVMs in proximal gut and in colon (ablated with APC) -no recommendations for a repeat endoscopic evaluation at this time unless overt bleeding develops -start on daily PPI -resume iron supplement BID -avoid NSAIDs -continue supportive care -if H/H stable in am, patient okay to be d/c per GI standpoint on above medication with f/u in clinic ~2 weeks for further management (need for compliance with iron supplement and f/u discussed with patient with understanding voiced)
[2019-02-15] MEDS: FAMOTIDINE 20 MG/2 ML INJ IV SCH (11:43)
[2019-02-15 11:57] LABS: Hematocrit 26.8 % (35.5-45.6); Hemoglobin 8.1 gm/dl (11.8-15.2); Mean Corpuscular HGB Conc 30 % (32-34); Mean Corpuscular Volume 75 fl (84-94); Platelet Count 322 K/mm3 (140-440); Red Blood Count 3.57 M/mm3 (3.65-5.03)
[2019-02-15 11:58] LABS: Red Cell Distribution Width 27.5 % (13.2-15.2)
[2019-02-15 12:20] LABS: Alanine Aminotransferase 8 units/L (7-56); Albumin 3.6 g/dL (3.9-5); BUN/Creatinine Ratio 10; Blood Urea Nitrogen 6 mg/dL (9-20); Calcium 8.1 mg/dL (8.4-10.2); Hemolysis Index 3
[2019-02-15 12:22] LABS: % Iron Saturation 5.41 %
[2019-02-15 13:05] LABS: Total Cells Counted 100
[2019-02-15 13:06] LABS: Anisocytosis 3+; Hypochromasia 1+; Ovalocytes 1+; Platelet Estimate Consistent w Auto; Poikilocytosis 1+; Tear Drop Cells Few
[2019-02-15] MEDS: PANTOPRAZOLE 40 MG TAB PO SCH (14:16)
--- NOTE | 2019-02-15 15:24 | Progress Note ---
Assessment and Plan Assessment and plan: Acute on chronic 1ron def anemia -etiology- likely due to chronic blood loss -pt has a h/o chronic 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 -s/p blood transf with 3u OF prbcs -H/H improved to 8.1 from 4.3, will monitor -last EGD/colonoscopy 03/2017 showed multiple AVMs in proximal gut and in colon (ablated with APC) -no recommendations for a repeat endoscopic evaluation at this time unless overt bleeding develops -cont oral daily PPI and iron supplement BID -avoid NSAIDs DVT ppx: SCD Disp: for d/c in am if H/H remain stable History Interval history: Pt has no new complaints. He denies bleeding from any orifice. No lightheadedness Hospitalist Physical - Constitutional Vitals: Temp Pulse Resp BP Pulse Ox 98.5 F 132 H 79 H 132/63 19 L 02/15/19 05:57 02/15/19 05:57 02/15/19 05:57 02/15/19 05:57 02/15/19 05:57 General appearance: Present: no acute distress - EENT Eyes: Present: PERRL, EOM intact ENT: hearing intact, clear oral mucosa - Neck Neck: Present: supple - Respiratory Respiratory effort: normal Respiratory: bilateral: CTA - Cardiovascular Rhythm: regular Heart Sounds: Present: S1 & S2 - Extremities Extremities: No edema - Abdominal General gastrointestinal: soft, non-tender, normal bowel sounds - Integumentary Integumentary: Present: pale - Psychiatric Psychiatric: appropriate mood/affect - Neurologic Neurologic: CNII-XII intact Results - Labs CBC & Chem 7: 02/15/19 11:13 02/15/19 11:13 Labs: Laboratory Last Values WBC 4.9 K/mm3 (4.5-11.0) 02/15/19 11:13 RBC 3.57 M/mm3 (3.65-5.03) L 02/15/19 11:13 Hgb 8.1 gm/dl (11.8-15.2) L D 02/15/19 11:13 Hct 26.8 % (35.5-45.6) L D 02/15/19 11:13 MCV 75 fl (84-94) L 02/15/19 11:13 MCH 23 pg (28-32) L 02/15/19 11:13 MCHC 30 % (32-34) L 02/15/19 11:13 RDW 27.5 % (13.2-15.2) H 02/15/19 11:13 Plt Count 322 K/mm3 (140-440) 02/15/19 11:13 Add Manual Diff Complete 02/15/19 11:13 Total Counted 100 02/15/19 11:13 Seg Neuts % (Manual) 78.0 % (40.0-70.0) H 02/15/19 11:13 Band Neutrophils % 1.0 % 02/15/19 11:13 Lymphocytes % (Manual) 12.0 % (13.4-35.0) L 02/15/19 11:13 Reactive Lymphs % (Man) 0 % 02/15/19 11:13 Monocytes % (Manual) 3.0 % (0.0-7.3) 02/15/19 11:13 Eosinophils % (Manual) 4.0 % (0.0-4.3) 02/15/19 11:13 Basophils % (Manual) 2.0 % (0.0-1.8) H 02/15/19 11:13 Metamyelocytes % 0 % 02/15/19 11:13 Myelocytes % 0 % 02/15/19 11:13 Promyelocytes % 0 % 02/15/19 11:13 Blast Cells % 0 % 02/15/19 11:13 Nucleated RBC % Not Reportable 02/15/19 11:13 Seg Neutrophils # Man 3.8 K/mm3 (1.8-7.7) 02/15/19 11:13 Band Neutrophils # 0.0 K/mm3 02/15/19 11:13 Lymphocytes # (Manual) 0.6 K/mm3 (1.2-5.4) L 02/15/19 11:13 Abs React Lymphs (Man) 0.0 K/mm3 02/15/19 11:13 Monocytes # (Manual) 0.1 K/mm3 (0.0-0.8) 02/15/19 11:13 Eosinophils # (Manual) 0.2 K/mm3 (0.0-0.4) 02/15/19 11:13 Basophils # (Manual) 0.1 K/mm3 (0.0-0.1) 02/15/19 11:13 Metamyelocytes # 0.0 K/mm3 02/15/19 11:13 Myelocytes # 0.0 K/mm3 02/15/19 11:13 Promyelocytes # 0.0 K/mm3 02/15/19 11:13 Blast Cells # 0.0 K/mm3 02/15/19 11:13 WBC Morphology Not Reportable 02/15/19 11:13 Hypersegmented Neuts Not Reportable 02/15/19 11:13 Hyposegmented Neuts Not Reportable 02/15/19 11:13 Hypogranular Neuts Not Reportable 02/15/19 11:13 Smudge Cells Not Reportable 02/15/19 11:13 Toxic Granulation Not Reportable 02/15/19 11:13 Toxic Vacuolation Not Reportable 02/15/19 11:13 Dohle Bodies Not Reportable 02/15/19 11:13 Pelger-Huet Anomaly Not Reportable 02/15/19 11:13 Katia Rods Not Reportable 02/15/19 11:13 Platelet Estimate Consistent w auto 02/15/19 11:13 Clumped Platelets Not Reportable 02/15/19 11:13 Plt Clumps, EDTA Not Reportable 02/15/19 11:13 Large Platelets Not Reportable 02/15/19 11:13 Giant Platelets Not Reportable 02/15/19 11:13 Platelet Satelliting Not Reportable 02/15/19 11:13 Plt Morphology Comment Not Reportable 02/15/19 11:13 RBC Morphology Not Reportable 02/15/19 11:13 Dimorphic RBCs Not Reportable 02/15/19 11:13 Polychromasia Not Reportable 02/15/19 11:13 Hypochromasia 1+ 02/15/19 11:13 Poikilocytosis 1+ 02/15/19 11:13 Anisocytosis 3+ 02/15/19 11:13 Microcytosis Few 02/15/19 11:13 Macrocytosis Not Reportable 02/15/19 11:13 Spherocytes Not Reportable 02/15/19 11:13 Pappenheimer Bodies Not Reportable 02/15/19 11:13 Sickle Cells Not Reportable 02/15/19 11:13 Target Cells Not Reportable 02/15/19 11:13 Tear Drop Cells Few 02/15/19 11:13 Ovalocytes 1+ 02/15/19 11:13 Helmet Cells Not Reportable 02/15/19 11:13 Suarez-Wynnewood Bodies Not Reportable 02/15/19 11:13 [place] Rings Not Reportable 02/15/19 11:13 Luke Cells Not Reportable 02/15/19 11:13 Bite Cells Not Reportable 02/15/19 11:13 Crenated Cell Not Reportable 02/15/19 11:13 Elliptocytes 1+ 02/15/19 11:13 Acanthocytes (Spur) Not Reportable 02/15/19 11:13 Rouleaux Not Reportable 02/15/19 11:13 Hemoglobin C Crystals Not Reportable 02/15/19 11:13 Schistocytes Not Reportable 02/15/19 11:13 Malaria parasites Not Reportable 02/15/19 11:13 Jl Bodies Not Reportable 02/15/19 11:13 Hem Pathologist Commnt No 02/15/19 11:13 PT 15.2 Sec. (12.2-14.9) H 02/14/19 12:22 INR 1.21 (0.87-1.13) H 02/14/19 12:22 APTT 32.4 Sec. (24.2-36.6) 02/14/19 12:22 Sodium 142 mmol/L (137-145) 02/15/19 11:13 Potassium 4.0 mmol/L (3.6-5.0) 02/15/19 11:13 Chloride 104.4 mmol/L (98-107) 02/15/19 11:13 Carbon Dioxide 23 mmol/L (22-30) 02/15/19 11:13 Anion Gap 19 mmol/L 02/15/19 11:13 BUN 6 mg/dL (9-20) L 02/15/19 11:13 Creatinine 0.6 mg/dL (0.8-1.5) L 02/15/19 11:13 Estimated GFR > 60 ml/min 02/15/19 11:13 BUN/Creatinine Ratio 10 % 02/15/19 11:13 Glucose 170 mg/dL (75-100) H 02/15/19 11:13 POC Glucose 97 (70-105) 02/14/19 18:25 Hemoglobin A1c 8.6 % (4-6) H 02/14/19 13:25 Calcium 8.1 mg/dL (8.4-10.2) L 02/15/19 11:13 Iron 25 ug/dL (49-181) L 02/15/19 11:13 TIBC 462 mcg/dL (250-450) H 02/15/19 11:13 % Saturation 5.41 % 02/15/19 11:13 Transferrin 364 mg/dl (180-329) H 02/15/19 11:13 Total Bilirubin 1.10 mg/dL (0.1-1.2) 02/15/19 11:13 AST 12 units/L (5-40) 02/15/19 11:13 ALT 8 units/L (7-56) 02/15/19 11:13 Alkaline Phosphatase 65 units/L (35-129) 02/15/19 11:13 Total Protein 6.0 g/dL (6.3-8.2) L 02/15/19 11:13 Albumin 3.6 g/dL (3.9-5) L 02/15/19 11:13 Albumin/Globulin Ratio 1.5 % 02/15/19 11:13 Vitamin B12 492.7 pg/mL (211-911) 02/15/19 11:13 Urine Color Yellow (Yellow) 02/14/19 14:00 Urine Turbidity Clear (Clear) 02/14/19 14:00 Urine pH 5.0 (5.0-7.0) 02/14/19 14:00 Ur Specific [place] 1.014 (1.003-1.030) 02/14/19 14:00 Urine Protein <15 mg/dl mg/dL (Negative) 02/14/19 14:00 Urine Glucose (UA) Neg mg/dL (Negative) 02/14/19 14:00 Urine Ketones Neg mg/dL (Negative) 02/14/19 14:00 Urine Blood Neg (Negative) 02/14/19 14:00 Urine Nitrite Neg (Negative) 02/14/19 14:00 Urine Bilirubin Neg (Negative) 02/14/19 14:00 Urine Urobilinogen 4.0 mg/dL (<2.0) 02/14/19 14:00 Ur Leukocyte Esterase Neg (Negative) 02/14/19 14:00 Urine WBC (Auto) < 1.0 /HPF (0.0-6.0) 02/14/19 14:00 Urine RBC (Auto) 2.0 /HPF (0.0-6.0) 02/14/19 14:00 U Epithel Cells (Auto) < 1.0 /HPF (0-13.0) 02/14/19 14:00 Blood Type A POSITIVE 02/14/19 15:15 Antibody Screen TNR 02/14/19 15:15 JYOTI Antibody Screen Negative 02/14/19 15:15 Crossmatch See Detail 02/14/19 15:15 Active Medications - Current Medications Current Medications: Generic Name Dose Route Start Last Admin Trade Name Freq PRN Reason Stop Dose Admin Acetaminophen 650 mg 02/14/19 21:59 Tylenol PO Q4H PRN Pain MILD(1-3)/Fever >100.5/DURÁN Ferrous Sulfate 325 mg 02/15/19 22:00 Feosol PO BID LUCIAN Hydromorphone HCl 0.5 mg 02/14/19 21:59 Dilaudid IV Q3H PRN Pain , Severe (7-10) Sodium Chloride 1,000 mls @ 75 mls/hr 02/14/19 22:00 02/14/19 22:33 Nacl 0.9% 1000 Ml IV 75 mls/hr DIRECT LUCIAN Administration Metoclopramide HCl 10 mg 02/14/19 21:59 Reglan IV Q6H PRN Nausea And Vomiting Ondansetron HCl 4 mg 02/14/19 21:59 Zofran IV Q8H PRN Nausea And Vomiting Oxycodone/Acetaminophen 1 tab 02/14/19 21:59 Percocet 5/325 PO Q6H PRN Pain, Moderate (4-6) Pantoprazole Sodium 40 mg 02/15/19 14:00 02/15/19 14:16 Protonix PO 40 mg QDAY LUCIAN Administration Sodium Chloride 10 ml 02/14/19 22:00 02/15/19 11:47 Sodium Chloride Flush Syringe 10 Ml IV 10 ml BID LUCIAN Administration Sodium Chloride 10 ml 02/14/19 21:59 Sodium Chloride Flush Syringe 10 Ml IV PRN PRN LINE FLUSH
[2019-02-15] MEDS: SODIUM CHLORIDE 0.9% 1000 ML 1,000 ML IV SCH (16:16)
--- NOTE | 2019-02-15 18:46 | Cat Scan Report ---
CT abdomen pelvis w con INDICATION / CLINICAL INFORMATION: abd pain. TECHNIQUE: All CT scans at this location are performed using CT dose reduction for ALARA by means of automated e xposure control. COMPARISON: None available. FINDINGS: Limited lower thoracic images show very small bilateral pleural effusions and dependent atelectasis. ABDOMEN: Multiple gallstones. The liver, spleen and pancreas are within normal limits with regard to size and morphology.. Tiny bilateral renal cysts are identified. No renal calculi or fractures. Adrenal glands are normal. No retroperitoneal adenopathy. No small bowel dilatation. Pelvis: Small amount of free fluid is noted in the pelvis. No acute colon abnormalities. The appendix is normal. There are degenerative changes in the lumbar spine and multiple pelvic sclerotic densities that it no naggressive and likely represent bone islands. IMPRESSION: 1. No hepatosplenomegaly. 2. Cholelithiasis. 3. Small bilateral pleural effusions and minimal dependent ascites in the pelvis. Signer Name: Cole Amezquita MD Signed: 02/15/2019 6:42 PM Workstation Name: [id number]
[2019-02-15] MEDS: FERROUS SULFATE 325 MG TAB PO SCH (21:18)
[2019-02-16 05:08] LABS: Hematocrit 25.7 % (35.5-45.6)
[2019-02-16] MEDS: PANTOPRAZOLE 40 MG TAB PO SCH (10:05)
[2019-02-16] MEDS: FERROUS SULFATE 325 MG TAB PO SCH ×2 (10:06→21:16)
[2019-02-16] MEDS: SODIUM CHLORIDE 0.9% 1000 ML 1,000 ML IV SCH (10:07)
--- NOTE | 2019-02-16 10:41 | Gastroenterology Progress Note ---
Assessment and Plan 1.acute on chronic anemia -HGB 8.0/25.7-stable -continue to monitor H/H and transfuse as needed -hold blood thinning medications -no active signs of bleeding -clinically, patient is stable w/o GI complaints (denies abd pain or N/V). 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 -last EGD/colonoscopy 03/2017 showed multiple AVMs in proximal gut and in colon (ablated with APC) -no recommendations for a repeat endoscopic evaluation at this time unless overt bleeding develops -continue PPI -continue iron supplement BID -avoid NSAIDs -continue supportive care -patient okay to be d/c per GI standpoint on above medications with f/u in clinic in ~2 weeks for further management as outpatient for pillcam and endoscopy (importance of compliance with iron supplement and f/u discussed with patient with understanding voiced) -will sign off, please call if needed Subjective Date of service: 02/16/19 Principal diagnosis: anemia Interval history: No acute distress or active signs of bleeding. Objective - Constitutional Vitals: Temp Pulse Resp BP Pulse Ox 100.0 F H 81 20 132/63 99 02/16/19 08:00 02/16/19 04:00 02/16/19 04:00 02/15/19 05:57 02/16/19 04:00 General appearance: no acute distress - EENT Eyes: PERRL, EOM intact ENT: hearing intact - Respiratory Respiratory effort: normal Respiratory: bilateral: CTA - Cardiovascular Rhythm: regular - Gastrointestinal General gastrointestinal: Present: soft, non-tender, non-distended, normal bowel sounds - Neurologic Neurological: alert and oriented x3 - Labs CBC & Chem 7: 02/16/19 04:24 02/15/19 11:13 Labs: Laboratory Results - last 24 hr 02/15/19 02/15/19 02/15/19 11:13 11:13 11:13 WBC 4.9 RBC 3.57 L Hgb 8.1 L D Hct 26.8 L D MCV 75 L MCH 23 L MCHC 30 L RDW 27.5 H Plt Count 322 Add Manual Diff Complete Total Counted 100 Seg Neuts % (Manual) 78.0 H Band Neutrophils % 1.0 Lymphocytes % (Manual) 12.0 L Reactive Lymphs % (Man) 0 Monocytes % (Manual) 3.0 Eosinophils % (Manual) 4.0 Basophils % (Manual) 2.0 H Metamyelocytes % 0 Myelocytes % 0 Promyelocytes % 0 Blast Cells % 0 Nucleated RBC % Not Reportable Seg Neutrophils # Man 3.8 Band Neutrophils # 0.0 Lymphocytes # (Manual) 0.6 L Abs React Lymphs (Man) 0.0 Monocytes # (Manual) 0.1 Eosinophils # (Manual) 0.2 Basophils # (Manual) 0.1 Metamyelocytes # 0.0 Myelocytes # 0.0 Promyelocytes # 0.0 Blast Cells # 0.0 WBC Morphology Not Reportable Hypersegmented Neuts Not Reportable Hyposegmented Neuts Not Reportable Hypogranular Neuts Not Reportable Smudge Cells Not Reportable Toxic Granulation Not Reportable Toxic Vacuolation Not Reportable Dohle Bodies Not Reportable Pelger-Huet Anomaly Not Reportable Katia Rods Not Reportable Platelet Estimate Consistent w auto Clumped Platelets Not Reportable Plt Clumps, EDTA Not Reportable Large Platelets Not Reportable Giant Platelets Not Reportable Platelet Satelliting Not Reportable Plt Morphology Comment Not Reportable RBC Morphology Not Reportable Dimorphic RBCs Not Reportable Polychromasia Not Reportable Hypochromasia 1+ Poikilocytosis 1+ Anisocytosis 3+ Microcytosis Few Macrocytosis Not Reportable Spherocytes Not Reportable Pappenheimer Bodies Not Reportable Sickle Cells Not Reportable Target Cells Not Reportable Tear Drop Cells Few Ovalocytes 1+ Helmet Cells Not Reportable Suarez-Rosenberg Bodies Not Reportable [place] Rings Not Reportable [place] Cells Not Reportable Bite Cells Not Reportable Crenated Cell Not Reportable Elliptocytes 1+ Acanthocytes (Spur) Not Reportable Rouleaux Not Reportable Hemoglobin C Crystals Not Reportable Schistocytes Not Reportable Malaria parasites Not Reportable Jl Bodies Not Reportable Hem Pathologist Commnt No Sodium 142 Potassium 4.0 Chloride 104.4 Carbon Dioxide 23 Anion Gap 19 BUN 6 L Creatinine 0.6 L Estimated GFR > 60 BUN/Creatinine Ratio 10 Glucose 170 H Calcium 8.1 L Iron 25 L TIBC 462 H % Saturation 5.41 Transferrin 364 H Total Bilirubin 1.10 AST 12 ALT 8 Alkaline Phosphatase 65 Total Protein 6.0 L Albumin 3.6 L Albumin/Globulin Ratio 1.5 Vitamin B12 12/10/19 12/11/19 11:13 04:24 WBC RBC Hgb 8.0 L Hct 25.7 L MCV MCH MCHC RDW Plt Count Add Manual Diff Total Counted Seg Neuts % (Manual) Band Neutrophils % Lymphocytes % (Manual) Reactive Lymphs % (Man) Monocytes % (Manual) Eosinophils % (Manual) Basophils % (Manual) Metamyelocytes % Myelocytes % Promyelocytes % Blast Cells % Nucleated RBC % Seg Neutrophils # Man Band Neutrophils # Lymphocytes # (Manual) Abs React Lymphs (Man) Monocytes # (Manual) Eosinophils # (Manual) Basophils # (Manual) Metamyelocytes # Myelocytes # Promyelocytes # Blast Cells # WBC Morphology Hypersegmented Neuts Hyposegmented Neuts Hypogranular Neuts Smudge Cells Toxic Granulation Toxic Vacuolation Dohle Bodies Pelger-Huet Anomaly Katia Rods Platelet Estimate Clumped Platelets Plt Clumps, EDTA Large Platelets Giant Platelets Platelet Satelliting Plt Morphology Comment RBC Morphology Dimorphic RBCs Polychromasia Hypochromasia Poikilocytosis Anisocytosis Microcytosis Macrocytosis Spherocytes Pappenheimer Bodies Sickle Cells Target Cells Tear Drop Cells Ovalocytes Helmet Cells Suarez-Rosenberg Bodies [place] Rings Luke Cells Bite Cells Crenated Cell Elliptocytes Acanthocytes (Spur) Rouleaux Hemoglobin C Crystals Schistocytes Malaria parasites Jl Bodies Hem Pathologist Commnt Sodium Potassium Chloride Carbon Dioxide Anion Gap BUN Creatinine Estimated GFR BUN/Creatinine Ratio Glucose Calcium Iron TIBC % Saturation Transferrin Total Bilirubin AST ALT Alkaline Phosphatase Total Protein Albumin Albumin/Globulin Ratio Vitamin B12 492.7
[2019-02-17] MEDS: SODIUM CHLORIDE 0.9% 1000 ML 1,000 ML IV SCH (05:16)
--- NOTE | 2019-02-17 08:02 | Progress Note ---
Assessment and Plan - Patient Problems (1) Symptomatic anemia Current Visit: No Status: Acute Plan to address problem: Transfused 3 units of PRBC HGB 8.0/25.7-stable -continue to monitor H/H and transfuse as needed -hold blood thinning medications -no active signs of bleeding -clinically, patient is stable w/o GI complaints (denies abd pain or N/V). 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 -last EGD/colonoscopy 03/2017 showed multiple AVMs in proximal gut and in colon (ablated with APC) -no recommendations for a repeat endoscopic evaluation at this time unless overt bleeding develops -continue PPI -continue iron supplement BID -avoid NSAIDs -continue supportive care - (2) GERD (gastroesophageal reflux disease) Current Visit: Yes Status: Chronic Plan to address problem: On PPI's (3) DVT prophylaxis Current Visit: No Status: Acute Plan to address problem: SCD's and GI prophylaxis Subjective Date of service: 02/16/19 Principal diagnosis: anemia Interval history: The patient presents to the emergency department with a chief complaint of dizziness and light headedness when standing up. Patient states that the last time this happened he needed a blood transfusion secondary to anemia. Patient states he has anemia frequently and does not know the cause of it. Patient denies any blood in the stool. Patient denies a room spinning. states he is only dizzy when he tries to stand up. Patient denies slurred speech, facial droop, focal weakness.No black tarry stools or hematemesis or coffee ground emesis. Objective - Constitutional Vitals: Vital Signs - 12hr 02/16/19 02/16/19 02/16/19 20:10 20:20 20:30 Temperature Pulse Rate 89 85 91 H Pulse Rate [ From Monitor] Respiratory 25 H 18 20 Rate Blood Pressure 161/66 161/66 161/66 O2 Sat by Pulse 100 100 100 Oximetry 02/16/19 02/16/19 02/16/19 20:40 20:50 21:00 Temperature Pulse Rate 91 H 82 84 Pulse Rate [ From Monitor] Respiratory 19 26 H 29 H Rate Blood Pressure 161/66 161/66 161/66 O2 Sat by Pulse 100 100 100 Oximetry 02/16/19 02/16/19 02/16/19 21:10 21:20 21:30 Temperature Pulse Rate 85 81 81 Pulse Rate [ From Monitor] Respiratory 22 23 21 Rate Blood Pressure 161/66 161/66 161/66 O2 Sat by Pulse 100 100 100 Oximetry 02/16/19 02/16/19 02/16/19 21:40 21:50 22:00 Temperature Pulse Rate 80 85 90 Pulse Rate [ From Monitor] Respiratory 24 14 22 Rate Blood Pressure 161/66 161/66 161/66 O2 Sat by Pulse 100 100 100 Oximetry 02/16/19 02/16/19 02/16/19 22:10 22:20 22:30 Temperature Pulse Rate 86 86 96 H Pulse Rate [ From Monitor] Respiratory 22 18 25 H Rate Blood Pressure 161/66 161/66 161/66 O2 Sat by Pulse 100 100 99 Oximetry 02/16/19 02/16/19 02/16/19 22:40 22:50 23:00 Temperature Pulse Rate 95 H 88 82 Pulse Rate [ From Monitor] Respiratory 14 11 L 27 H Rate Blood Pressure 161/66 161/66 161/66 O2 Sat by Pulse 99 97 99 Oximetry 02/16/19 02/16/19 02/16/19 23:10 23:20 23:30 Temperature Pulse Rate 84 83 82 Pulse Rate [ From Monitor] Respiratory 25 H 16 22 Rate Blood Pressure 161/66 161/66 161/66 O2 Sat by Pulse 99 99 98 Oximetry 02/16/19 02/16/19 02/16/19 23:36 23:40 23:48 Temperature 99.0 F Pulse Rate 87 82 Pulse Rate [ From Monitor] Respiratory 22 Rate Blood Pressure 161/66 O2 Sat by Pulse 99 Oximetry 02/16/19 02/17/19 02/17/19 23:50 00:00 00:10 Temperature Pulse Rate 87 80 81 Pulse Rate [ 88 From Monitor] Respiratory 21 22 24 Rate Blood Pressure 161/66 131/62 131/62 O2 Sat by Pulse 100 99 100 Oximetry 02/17/19 02/17/19 02/17/19 00:20 00:30 00:40 Temperature Pulse Rate 79 82 86 Pulse Rate [ From Monitor] Respiratory 23 20 20 Rate Blood Pressure 131/62 131/62 131/62 O2 Sat by Pulse 100 100 100 Oximetry 02/17/19 02/17/19 02/17/19 00:50 01:00 01:10 Temperature Pulse Rate 82 82 93 H Pulse Rate [ From Monitor] Respiratory 21 23 18 Rate Blood Pressure 131/62 131/62 131/62 O2 Sat by Pulse 100 100 99 Oximetry 02/17/19 02/17/19 02/17/19 01:20 01:30 01:40 Temperature Pulse Rate 89 84 85 Pulse Rate [ From Monitor] Respiratory 18 26 H 19 Rate Blood Pressure 131/62 131/62 131/62 O2 Sat by Pulse 98 100 100 Oximetry 02/17/19 02/17/19 02/17/19 01:50 02:00 02:10 Temperature Pulse Rate 88 85 89 Pulse Rate [ From Monitor] Respiratory 20 25 H 12 Rate Blood Pressure 131/62 131/62 131/62 O2 Sat by Pulse 100 98 99 Oximetry 02/17/19 02/17/19 02/17/19 02:20 02:30 02:40 Temperature Pulse Rate 83 85 87 Pulse Rate [ From Monitor] Respiratory 27 H 27 H 23 Rate Blood Pressure 131/62 131/62 131/62 O2 Sat by Pulse 99 98 98 Oximetry 02/17/19 02/17/19 02/17/19 02:50 03:00 03:10 Temperature 100.2 F H Pulse Rate 89 87 97 H Pulse Rate [ From Monitor] Respiratory 24 23 19 Rate Blood Pressure 131/62 131/62 131/62 O2 Sat by Pulse 97 98 98 Oximetry 02/17/19 02/17/19 02/17/19 03:20 03:30 03:40 Temperature Pulse Rate 86 95 H 88 Pulse Rate [ From Monitor] Respiratory 17 14 22 Rate Blood Pressure 131/62 131/62 131/62 O2 Sat by Pulse 98 99 99 Oximetry 02/17/19 02/17/19 02/17/19 03:50 04:00 04:10 Temperature Pulse Rate 87 88 85 Pulse Rate [ 87 From Monitor] Respiratory 13 21 19 Rate Blood Pressure 131/62 149/75 149/75 O2 Sat by Pulse 100 98 99 Oximetry 02/17/19 02/17/19 02/17/19 04:20 04:30 04:40 Temperature Pulse Rate 86 85 86 Pulse Rate [ From Monitor] Respiratory 19 16 18 Rate Blood Pressure 149/75 149/75 149/75 O2 Sat by Pulse 100 100 99 Oximetry 02/17/19 02/17/19 02/17/19 04:50 05:00 05:10 Temperature Pulse Rate 86 83 77 Pulse Rate [ From Monitor] Respiratory 18 19 20 Rate Blood Pressure 149/75 149/75 149/75 O2 Sat by Pulse 100 98 98 Oximetry 02/17/19 02/17/19 02/17/19 05:20 05:30 05:40 Temperature Pulse Rate 80 81 83 Pulse Rate [ From Monitor] Respiratory 16 15 17 Rate Blood Pressure 149/75 149/75 149/75 O2 Sat by Pulse 100 99 100 Oximetry 02/17/19 02/17/19 02/17/19 05:50 06:00 06:10 Temperature Pulse Rate 80 85 76 Pulse Rate [ From Monitor] Respiratory 19 21 13 Rate Blood Pressure 149/75 149/75 149/75 O2 Sat by Pulse 99 100 99 Oximetry 02/17/19 02/17/19 06:20 07:17 Temperature 98.2 F Pulse Rate 80 Pulse Rate [ From Monitor] Respiratory 14 Rate Blood Pressure 149/75 O2 Sat by Pulse 99 Oximetry - Labs CBC & Chem 7: 02/16/19 04:24 02/15/19 11:13
--- NOTE | 2019-02-17 08:06 | Progress Note ---
Assessment and Plan - Patient Problems (1) Symptomatic anemia Current Visit: No Status: Acute Plan to address problem: Transfused 3 units of PRBC HGB 8.0/25.7-stable -continue to monitor H/H and transfuse as needed -hold blood thinning medications -no active signs of bleeding -clinically, patient is stable w/o GI complaints (denies abd pain or N/V). 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 -last EGD/colonoscopy 03/2017 showed multiple AVMs in proximal gut and in colon (ablated with APC) -no recommendations for a repeat endoscopic evaluation at this time unless overt bleeding develops -continue PPI -continue iron supplement BID -avoid NSAIDs -continue supportive care - (2) GERD (gastroesophageal reflux disease) Current Visit: Yes Status: Chronic Plan to address problem: On PPI's (3) DVT prophylaxis Current Visit: No Status: Acute Plan to address problem: SCD's and GI prophylaxis Subjective Date of service: 02/16/19 Principal diagnosis: anemia Interval history: The patient presents to the emergency department with a chief complaint of dizziness and light headedness when standing up. Patient states that the last time this happened he needed a blood transfusion secondary to anemia. Patient states he has anemia frequently and does not know the cause of it. Patient denies any blood in the stool. Patient denies a room spinning. states he is only dizzy when he tries to stand up. Patient denies slurred speech, facial droop, focal weakness.No black tarry stools or hematemesis or coffee ground emesis. Objective - Constitutional Vitals: Vital Signs - 12hr 02/16/19 02/16/19 02/16/19 20:10 20:20 20:30 Temperature Pulse Rate 89 85 91 H Pulse Rate [ From Monitor] Respiratory 25 H 18 20 Rate Blood Pressure 161/66 161/66 161/66 O2 Sat by Pulse 100 100 100 Oximetry 02/16/19 02/16/19 02/16/19 20:40 20:50 21:00 Temperature Pulse Rate 91 H 82 84 Pulse Rate [ From Monitor] Respiratory 19 26 H 29 H Rate Blood Pressure 161/66 161/66 161/66 O2 Sat by Pulse 100 100 100 Oximetry 02/16/19 02/16/19 02/16/19 21:10 21:20 21:30 Temperature Pulse Rate 85 81 81 Pulse Rate [ From Monitor] Respiratory 22 23 21 Rate Blood Pressure 161/66 161/66 161/66 O2 Sat by Pulse 100 100 100 Oximetry 02/16/19 02/16/19 02/16/19 21:40 21:50 22:00 Temperature Pulse Rate 80 85 90 Pulse Rate [ From Monitor] Respiratory 24 14 22 Rate Blood Pressure 161/66 161/66 161/66 O2 Sat by Pulse 100 100 100 Oximetry 02/16/19 02/16/19 02/16/19 22:10 22:20 22:30 Temperature Pulse Rate 86 86 96 H Pulse Rate [ From Monitor] Respiratory 22 18 25 H Rate Blood Pressure 161/66 161/66 161/66 O2 Sat by Pulse 100 100 99 Oximetry 02/16/19 02/16/19 02/16/19 22:40 22:50 23:00 Temperature Pulse Rate 95 H 88 82 Pulse Rate [ From Monitor] Respiratory 14 11 L 27 H Rate Blood Pressure 161/66 161/66 161/66 O2 Sat by Pulse 99 97 99 Oximetry 02/16/19 02/16/19 02/16/19 23:10 23:20 23:30 Temperature Pulse Rate 84 83 82 Pulse Rate [ From Monitor] Respiratory 25 H 16 22 Rate Blood Pressure 161/66 161/66 161/66 O2 Sat by Pulse 99 99 98 Oximetry 02/16/19 02/16/19 02/16/19 23:36 23:40 23:48 Temperature 99.0 F Pulse Rate 87 82 Pulse Rate [ From Monitor] Respiratory 22 Rate Blood Pressure 161/66 O2 Sat by Pulse 99 Oximetry 02/16/19 02/17/19 02/17/19 23:50 00:00 00:10 Temperature Pulse Rate 87 80 81 Pulse Rate [ 88 From Monitor] Respiratory 21 22 24 Rate Blood Pressure 161/66 131/62 131/62 O2 Sat by Pulse 100 99 100 Oximetry 02/17/19 02/17/19 02/17/19 00:20 00:30 00:40 Temperature Pulse Rate 79 82 86 Pulse Rate [ From Monitor] Respiratory 23 20 20 Rate Blood Pressure 131/62 131/62 131/62 O2 Sat by Pulse 100 100 100 Oximetry 02/17/19 02/17/19 02/17/19 00:50 01:00 01:10 Temperature Pulse Rate 82 82 93 H Pulse Rate [ From Monitor] Respiratory 21 23 18 Rate Blood Pressure 131/62 131/62 131/62 O2 Sat by Pulse 100 100 99 Oximetry 02/17/19 02/17/19 02/17/19 01:20 01:30 01:40 Temperature Pulse Rate 89 84 85 Pulse Rate [ From Monitor] Respiratory 18 26 H 19 Rate Blood Pressure 131/62 131/62 131/62 O2 Sat by Pulse 98 100 100 Oximetry 02/17/19 02/17/19 02/17/19 01:50 02:00 02:10 Temperature Pulse Rate 88 85 89 Pulse Rate [ From Monitor] Respiratory 20 25 H 12 Rate Blood Pressure 131/62 131/62 131/62 O2 Sat by Pulse 100 98 99 Oximetry 02/17/19 02/17/19 02/17/19 02:20 02:30 02:40 Temperature Pulse Rate 83 85 87 Pulse Rate [ From Monitor] Respiratory 27 H 27 H 23 Rate Blood Pressure 131/62 131/62 131/62 O2 Sat by Pulse 99 98 98 Oximetry 02/17/19 02/17/19 02/17/19 02:50 03:00 03:10 Temperature 100.2 F H Pulse Rate 89 87 97 H Pulse Rate [ From Monitor] Respiratory 24 23 19 Rate Blood Pressure 131/62 131/62 131/62 O2 Sat by Pulse 97 98 98 Oximetry 02/17/19 02/17/19 02/17/19 03:20 03:30 03:40 Temperature Pulse Rate 86 95 H 88 Pulse Rate [ From Monitor] Respiratory 17 14 22 Rate Blood Pressure 131/62 131/62 131/62 O2 Sat by Pulse 98 99 99 Oximetry 02/17/19 02/17/19 02/17/19 03:50 04:00 04:10 Temperature Pulse Rate 87 88 85 Pulse Rate [ 87 From Monitor] Respiratory 13 21 19 Rate Blood Pressure 131/62 149/75 149/75 O2 Sat by Pulse 100 98 99 Oximetry 02/17/19 02/17/19 02/17/19 04:20 04:30 04:40 Temperature Pulse Rate 86 85 86 Pulse Rate [ From Monitor] Respiratory 19 16 18 Rate Blood Pressure 149/75 149/75 149/75 O2 Sat by Pulse 100 100 99 Oximetry 02/17/19 02/17/19 02/17/19 04:50 05:00 05:10 Temperature Pulse Rate 86 83 77 Pulse Rate [ From Monitor] Respiratory 18 19 20 Rate Blood Pressure 149/75 149/75 149/75 O2 Sat by Pulse 100 98 98 Oximetry 02/17/19 02/17/19 02/17/19 05:20 05:30 05:40 Temperature Pulse Rate 80 81 83 Pulse Rate [ From Monitor] Respiratory 16 15 17 Rate Blood Pressure 149/75 149/75 149/75 O2 Sat by Pulse 100 99 100 Oximetry 02/17/19 02/17/19 02/17/19 05:50 06:00 06:10 Temperature Pulse Rate 80 85 76 Pulse Rate [ From Monitor] Respiratory 19 21 13 Rate Blood Pressure 149/75 149/75 149/75 O2 Sat by Pulse 99 100 99 Oximetry 02/17/19 02/17/19 06:20 07:17 Temperature 98.2 F Pulse Rate 80 Pulse Rate [ From Monitor] Respiratory 14 Rate Blood Pressure 149/75 O2 Sat by Pulse 99 Oximetry General appearance: Present: no acute distress, well-nourished - EENT Eyes: PERRL, EOM intact ENT: hearing intact, clear oral mucosa Ears: bilateral: normal - Neck Neck: supple, normal ROM - Respiratory Respiratory effort: normal Respiratory: bilateral: CTA - Breasts Breasts: normal - Cardiovascular Rhythm: regular Heart Sounds: Present: S1 & S2. Absent: gallop, rub Extremities: pulses intact, No edema, normal color, Full ROM - Gastrointestinal General gastrointestinal: Present: soft, non-tender, non-distended, normal bowel sounds - Genitourinary Male genitourinary: normal - Integumentary Integumentary: clear, warm, dry - Musculoskeletal Musculoskeletal: 1, strength equal bilaterally - Neurologic Neurologic: moves all extremities - Psychiatric Psychiatric: memory intact, appropriate mood/affect, intact judgment & insight - Labs CBC & Chem 7: 02/16/19 04:24 02/15/19 11:13
--- NOTE | 2019-02-17 08:07 | Discharge Summary ---
Providers - Providers Date of Admission: 02/14/19 16:46 Date of discharge: 02/17/19 Attending physician: ESPINOZA GLASGOW 02/14/19 21:59 Consult to Physician [CONS] Routine Comment: Consulting Provider: SUSANA RAMOS Physician Instructions: Reason For Exam: Anemia [facility] Hospital[facility] Condition: Fair Hospital course: The patient presents to the emergency department with a chief complaint of dizziness and light headedness when standing up. Patient states that the last time this happened he needed a blood transfusion secondary to anemia. Patient states he has anemia frequently and does not know the cause of it. Patient denies any blood in the stool. Patient denies a room spinning. states he is only dizzy when he tries to stand up. Patient denies slurred speech, facial droop, focal weakness.No black tarry stools or hematemesis or coffee ground emesis. (1) Symptomatic anemia Current Visit: No Status: Acute Plan to address problem: Transfused 3 units of PRBC HGB 8.0/25.7-stable -continue to monitor H/H and transfuse as needed -hold blood thinning medications -no active signs of bleeding -clinically, patient is stable w/o GI complaints (denies abd pain or N/V). 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 -last EGD/colonoscopy 03/2017 showed multiple AVMs in proximal gut and in colon (ablated with APC) -no recommendations for a repeat endoscopic evaluation at this time unless overt bleeding develops -continue PPI -continue iron supplement BID -avoid NSAIDs -continue supportive care - (2) GERD (gastroesophageal reflux disease) Current Visit: Yes Status: Chronic Plan to address problem: On PPI's Disposition: - TO HOME OR SELFCARE - Discharge Diagnoses (1) Symptomatic anemia Status: Acute (2) GERD (gastroesophageal reflux disease) Status: Chronic (3) DVT prophylaxis Status: Acute Core Measure Documentation - Palliative Care Palliative Care/ Comfort Measures: Not Applicable - Core Measures Any of the following diagnoses?: none Exam - Constitutional Vitals: Temp Pulse Resp BP Pulse Ox 98.2 F 80 14 149/75 99 02/17/19 07:17 02/17/19 06:20 02/17/19 06:20 02/17/19 06:20 02/17/19 06:20 General appearance: Present: no acute distress, well-nourished - EENT Eyes: Present: PERRL ENT: hearing intact, clear oral mucosa - Neck Neck: Present: supple, normal ROM - Respiratory Respiratory effort: normal Respiratory: bilateral: CTA - Cardiovascular Heart Sounds: Present: S1 & S2. Absent: rub, click - Extremities Extremities: pulses symmetrical, No edema Peripheral Pulses: within normal limits - Abdominal General gastrointestinal: Present: soft, non-tender, non-distended, normal bowel sounds Male genitourinary: Present: normal - Integumentary Integumentary: Present: clear, warm, dry - Musculoskeletal Musculoskeletal: gait normal, strength equal bilaterally - Psychiatric Psychiatric: appropriate mood/affect, intact judgment & insight - Neurologic Neurologic: CNII-XII intact, moves all extremities Plan Activity: no restrictions Diet: regular Follow up with: ARIS GAMEZ MD [Primary Care Provider] - 3-5 Days ARCENIO HOLLEY MD [Staff Physician] - 7 Days
--- NOTE | 2019-02-17 08:15 | Discharge Summary ---
Providers - Providers Date of Admission: 02/14/19 16:46 Attending physician: ESPINOZA GLASGOW 02/14/19 21:59 Consult to Physician [CONS] Routine Comment: Consulting Provider: SUSANA RAMOS Physician Instructions: Reason For Exam: Anemia [facility]: [facility] Core Measure Documentation - Palliative Care Palliative Care/ Comfort Measures: Not Applicable Exam - Constitutional Vitals: Temp Pulse Resp BP Pulse Ox 98.2 F 80 14 149/75 99 02/17/19 07:17 02/17/19 06:20 02/17/19 06:20 02/17/19 06:20 02/17/19 06:20 Plan Follow up with: ARCENIO HOLLEY MD [Staff Physician] - 7 Days [place] ARIS TAYLOR MD [Primary Care Provider] - 3-5 Days Prescriptions: Ferrous Sulfate [Feosol 325 MG tab] 325 mg PO BID #60 tablet Folic Acid [Folvite] 1 mg PO QDAY 30 Days #30 tablet Pantoprazole [Protonix TAB] 40 mg PO BID #30 tablet
[2019-02-17] MEDS: FERROUS SULFATE 325 MG TAB PO SCH (09:26)
[2019-02-17] MEDS: PANTOPRAZOLE 40 MG TAB PO SCH (09:26)
[2019-02-17 13:03] VITALS: BP 156/82
== END 2019-02-17 12:34 | disposition home or self-care (01) | DRG 812 ==
LOC: ED 10:57 → IMCU 16:46
PROVIDERS: ADMIT Internal Medicine; ATTEND Hospitalist
PROC: 30233N1 Transfusion of Nonautologous Red Blood Cells into Peripheral Vein, Percutaneous Approach (ICD-10-PCS; principal; 2019-02-14)
DX: D50.0 Iron deficiency anemia secondary to blood loss (chronic) (principal); K21.9 Gastro-esophageal reflux disease without esophagitis; E11.9 Type 2 diabetes mellitus without complications; F17.210 Nicotine dependence, cigarettes, uncomplicated; Z82.49 Family history of ischemic heart disease and other diseases of the circulatory system; Z79.899 Other long term (current) drug therapy; Z83.3 Family history of diabetes mellitus; Z86.19 Personal history of other infectious and parasitic diseases
CPT/HCPCS: 36415; 70450; 74177; 80053; 81001; 82607; 82747; 82962; 83036; 83550; 85007; 85014; 85018; 85025; 85610; 85730; 86850; 86900; 86901; 93005; 93010; G0378; J7030; J7040; P9016; Q9967

== ENCOUNTER 2020-02-07 10:36 | Emergency (ER) | payer OTHER ==
[2020-02-07 11:11] VITALS: BP 109/58
--- NOTE | 2020-02-07 13:38 | Event Note ---
ED Screening Note ED Screening Note: Patient is a 64-year-old male presents emergency room complaints of left hip pain that began 2 days ago He denies any fall or injury He states it is causing him to walk with a limp He states that he only feels the pain when he tries to get up and stand and walk He denies any numbness or weakness Past medical history of DM and anemia He was last transfused September 2019 This initial assessment/diagnostic orders/clinical plan/treatment(s) is/are subject to change based on patients health status, clinical progression and re- assessment by fellow clinical providers in the ED. Further treatment and workup at subsequent clinical providers discretion. Patient/guardian urged not to elope from the ED as their condition may be serious if not clinically assessed and managed. Initial orders include: Labs, x-ray
--- NOTE | 2020-02-07 14:31 | XRay Report ---
Left hip 2 views INDICATION: Left hip pain. IMPRESSION: No fracture or subluxation of the left hip. Mild degenerative changes of the left hip and left SI joint present. Signer Name: Solitario Lanier MD Signed: 02/07/2020 2:26 PM Workstation Name: [id number]
[2020-02-07 16:15] LABS: Basophils # (Auto) 0.1 K/mm3 (0.0-0.1); Basophils % (Auto) 1.8 % (0.0-1.8); Eosinophils # (Auto) 0.1 K/mm3 (0.0-0.4); Eosinophils % (Auto) 1.3 % (0.0-4.3); Lymphocytes % (Auto) 23.9 % (13.4-35.0); Mean Corpuscular HGB Conc 29 % (32-34); Monocytes # (Auto) 0.5 K/mm3 (0.0-0.8); Monocytes % (Auto) 11.6 % (0.0-7.3); Platelet Count 514 K/mm3 (140-440); Red Blood Count 4.04 M/mm3 (3.65-5.03); Red Cell Distribution Width 19.2 % (13.2-15.2)
[2020-02-07 16:16] LABS: Hematocrit 27.1 % (35.5-45.6); Hemoglobin 7.7 gm/dl (11.8-15.2)
[2020-02-07 16:17] LABS: Mean Corpuscular Volume 67 fl (84-94)
[2020-02-07 16:52] LABS: Alanine Aminotransferase 13 units/L (7-56); Albumin 4.9 g/dL (3.9-5); Blood Urea Nitrogen 13 mg/dL (9-20); Calcium 10.1 mg/dL (8.4-10.2); Hemolysis Index 3
[2020-02-07 16:56] LABS: BUN/Creatinine Ratio 19
[2020-02-07] MEDS ORDERED: KETOROLAC 30 MG/1 ML INJ IM ONE (21:20)
[2020-02-07] MEDS ORDERED: predniSONE 20 MG TAB PO ONE (21:20)
--- NOTE | 2020-02-07 21:31 | Emergency Department Report ---
ED General Adult HPI - General Chief complaint: Extremity Problem,Nontraumatic Stated complaint: LT HIP PAIN Time Seen by Provider: 02/07/20 13:35 Source: patient Mode of arrival: Ambulatory Limitations: No Limitations - History of Present Illness Initial comments: Pt is a 64-year-old male who presents to emergency room complaints of left hip pain that began 2 days ago, pt denies any fall, trauma, or injury, He states pain 4/10 is causing him to walk with a limp, He states that he only feels the pain when he tries to get up and stand and walk, pt denies any numbness or weakness, Past medical history of DM and anemia. pt on Fe therapy. - Related Data Previous Rx's Medication Instructions Recorded Last Taken Type Folic Acid [Folvite] 1 mg PO QDAY 30 Days #30 tablet 02/17/19 Unknown Rx Ferrous Sulfate [Feosol 325 MG tab] 325 mg PO BID #60 tablet 09/08/19 Unknown Rx Pantoprazole [Protonix TAB] 40 mg PO BID 60 Days #30 tablet 09/08/19 Unknown Rx Acetaminophen [Acetaminophen TAB] 1,000 mg PO Q6HR PRN #30 tablet 02/07/20 Unknown Rx Capsaicin 0.075% [Zostrix Hp 1 applicatio TP TID PRN #1 tube 02/07/20 Unknown Rx 0.075%] predniSONE [Deltasone] 20 mg PO QDAY #5 tab 02/07/20 Unknown Rx Allergies Allergy/AdvReac Type Severity Reaction Status Date / Time No Known Allergies Allergy Verified 08/27/17 07:25 ED Review of Systems ROS: Stated complaint: LT HIP PAIN Other details as noted in HPI Constitutional: denies: chills, fever Eyes: denies: eye pain, eye discharge, vision change ENT: denies: ear pain, throat pain Respiratory: denies: cough, shortness of breath, wheezing Cardiovascular: denies: chest pain, palpitations Endocrine: no symptoms reported Gastrointestinal: denies: abdominal pain, nausea, diarrhea Genitourinary: denies: urgency, dysuria Musculoskeletal: arthralgia, other (left hip pain ) Skin: denies: rash, lesions Neurological: denies: headache, weakness, paresthesias Psychiatric: denies: anxiety, depression Hematological/Lymphatic: denies: easy bleeding, easy bruising ED Past Medical Hx - Past Medical History Previous Medical History?: Yes Hx Hypertension: No Hx Congestive Heart Failure: No Hx Diabetes: Yes Hx Sickle Cell Disease: No Hx Seizures: No Hx Asthma: No Hx COPD: No Hx Dementia: No Hx HIV: No Additional medical history: ANEMIA. Proximal gut and multiple colon AVM's (endoscopy/colonoscopy March 2017). hep C - Surgical History Past Surgical History?: No - Social History Smoking Status: Current Every Day Smoker Substance Use Type: None - Medications Home Medications: Home Medications Medication Instructions Recorded Confirmed Last Taken Type Folic Acid [Folvite] 1 mg PO QDAY 30 Days #30 tablet 02/17/19 Unknown Rx Ferrous Sulfate [Feosol 325 MG tab] 325 mg PO BID #60 tablet 09/08/19 Unknown Rx Pantoprazole [Protonix TAB] 40 mg PO BID 60 Days #30 tablet 09/08/19 Unknown Rx Acetaminophen [Acetaminophen TAB] 1,000 mg PO Q6HR PRN #30 tablet 02/07/20 Unknown Rx Capsaicin 0.075% [Zostrix Hp 1 applicatio TP TID PRN #1 tube 02/07/20 Unknown Rx 0.075%] predniSONE [Deltasone] 20 mg PO QDAY #5 tab 02/07/20 Unknown Rx ED Physical Exam - General Limitations: No Limitations General appearance: alert, in no apparent distress - Head Head exam: Present: atraumatic, normocephalic - Eye Eye exam: Present: normal appearance - ENT ENT exam: Present: mucous membranes moist - Neck Neck exam: Present: normal inspection - Respiratory Respiratory exam: Present: normal lung sounds bilaterally. Absent: respiratory distress - Cardiovascular Cardiovascular Exam: Present: regular rate, normal rhythm, normal heart sounds. Absent: systolic murmur, diastolic murmur, rubs, gallop - GI/Abdominal GI/Abdominal exam: Present: soft, normal bowel sounds. Absent: distended, tenderness - Rectal Rectal exam: Present: deferred - Extremities Exam Extremities exam: Present: normal inspection, full ROM, normal capillary refill. Absent: tenderness, joint swelling - Expanded Lower Extremity Exam Left Hip exam: Present: normal inspection, full ROM. Absent: tenderness, swelling, abrasion, laceration, ecchymosis, deformity, crepidus, dislocation, external rotation, internal rotation, shortening, pelvic stability Upper Leg exam: Present: full ROM. Absent: tenderness Knee exam: Present: full ROM. Absent: tenderness Lower Leg exam: Present: full ROM. Absent: tenderness Ankle exam: Present: full ROM. Absent: tenderness Foot/Toe exam: Present: full ROM. Absent: tenderness Neuro vascular tendon exam: Absent: pulse deficit, motor deficit, sensory deficit, tendon deficit Gait: Positive: observed and limited by pain - Back Exam Back exam: Present: normal inspection, full ROM. Absent: CVA tenderness (R), CVA tenderness (L), vertebral tenderness - Neurological Exam Neurological exam: Present: alert, oriented X3, CN II-XII intact, abnormal gait, reflexes normal - Expanded Neurological Exam Expanded Patient oriented to: Present: person, place, time Motor strength exam: RLE: 5, LLE: 5 DTR: ankle (R): 2+, ankle (L): 2+ Best Eye Response (Taiwo): (4) open spontaneously Best Motor Response (Clio): (6) obeys commands Best Verbal Response (Taiwo): (5) oriented Clio Total: 15 - Psychiatric Psychiatric exam: Present: normal affect, normal mood - Skin Skin exam: Present: warm, dry, intact, normal color. Absent: rash ED Course Vital Signs 02/07/20 02/07/20 11:09 20:23 Temperature 98.5 F Pulse Rate 102 H 85 Respiratory 17 17 Rate Blood Pressure 109/58 [Left] O2 Sat by Pulse 100 99 Oximetry ED Medical Decision Making - Lab Data Result diagrams: 02/07/20 15:57 02/07/20 15:57 - Radiology Data Radiology results: report reviewed, image reviewed Findings Reporting MD: Solitario Lanier Dictation Time: February 07, 2020 13:26 Fried Cake Maker: Not available Watch Electrician Date: Left hip 2 views INDICATION: Left hip pain. IMPRESSION: No fracture or subluxation of the left hip. Mild degenerative c hanges of the left hip and left SI joint present. Signer Name: Solitario Lanier MD Signed: 02/07/2020 1:26 PM Workstation Name: [id number] - Medical Decision Making Left hip x-rays SI joint degenerative changes, this is likely arthralgia. Pain is improved with medications given in ED. Patient is ambulatory with steady gait at this time. Range of motion is improved with pain relief. Plan DC to home , prescription for Tylenol arthritis, capsaicin gel, hip exercises, follow- up with PCP in 2 to 3 days. Patient verbalizes agreement and understanding with discharge plan. Patient DC'd home in stable condition at this time Critical care attestation.: If time is entered above; I have spent that time in minutes in the direct care of this critically ill patient, excluding procedure time. ED Disposition Clinical Impression: Arthralgia of hip, left Disposition: DC-01 TO HOME OR SELFCARE Is pt being admited?: No Does the pt Need Aspirin: No Condition: Stable Instructions: Hip Pain, Joint Pain Prescriptions: Acetaminophen [Acetaminophen TAB] 1,000 mg PO Q6HR PRN #30 tablet PRN Reason: pain predniSONE [Deltasone] 20 mg PO QDAY #5 tab Capsaicin 0.075% [Zostrix Hp 0.075%] 1 applicatio TP TID PRN #1 tube PRN Reason: pain Referrals: CODY MCCORMACK MD [Staff Physician] - 3-5 Days Forms: Work/School Release Form(ED) Time of Disposition: 21:43
== END 2020-02-07 23:02 | disposition home or self-care (01) ==
LOC: ED 10:36
DX: M25.552 Pain in left hip (principal); F17.200 Nicotine dependence, unspecified, uncomplicated; E11.9 Type 2 diabetes mellitus without complications; D64.9 Anemia, unspecified; Z79.899 Other long term (current) drug therapy
CPT/HCPCS: 36415; 73502; 80053; 85025; 96372; 99283; J1885; J7512

== ENCOUNTER 2020-02-16 10:32 | Emergency (ER) | payer SELFPAY ==
[2020-02-16 10:43] VITALS: BP 99/56
--- NOTE | 2020-02-16 12:15 | Emergency Department Report ---
Chief Complaint: Extremity Injury, Lower Stated Complaint: LT HIP PAIN Time Seen by Provider: 02/16/20 12:07 - HPI History of Present Illness: Patient is a 64-year-old male who presents emergency room with complaints of left hip pain that began 2 weeks ago. Patient was evaluated in the emergency department on 02/07/2020 for the same symptoms. he had a left XR hip at that time which showed: IMPRESSION: No fracture or subluxation of the left hip. Mild degenerative changes of the left hip and left SI joint present. Patient has not followed up with a primary care doctor or an orthopedic. He denies any fall or injury. He denies any numbness or weakness. He states that he has pain whenever he first stands up to ambulate. Past medical history of anemia and diabetes. No allergies to medications. VSS On exam: No bony tenderness palpation of the left lower extremity, full range of motion of the left lower extremity, mild discomfort with full flexion of the hip, no edema, no increased warmth, no erythema, no skin changes, strong PT pulse, neurovascularly intact, no calf tenderness palpation, no edema of the leg Patient presents for left hip pain that has been ongoing for 2 weeks He has had no trauma He was evaluated in the emergency department on 02/07/2020 and had a x-ray at that time with no acute process He has a strong PT pulse, no signs of arterial occlusion He has no leg swelling, no calf tenderness, no signs of DVT He has no clinical signs of gout or septic joint He has full range of motion, no bony tenderness palpation Patient be referred to primary care doctor and orthopedic for further evaluation and management Discussed strict return precautions with patient Medical screening examination performed there is no threat to life or limb in this time - Exam Vital Signs: Vital Signs 02/16/20 10:42 Temperature 98.2 F Pulse Rate 102 H Respiratory 17 Rate Blood Pressure 99/56 O2 Sat by Pulse 96 Oximetry MSE screening note: Focused history and physical exam performed. ED Disposition for MSE Clinical Impression: Left hip pain Disposition: Z- MED SCREENING EXAM-LEFT Is pt being admited?: No Does the pt Need Aspirin: No Condition: Stable Instructions: Hip Pain Additional Instructions: Please continue using medications from your last emergency room visit. May use ice pack, heating pad, rest, and epsom salt bath. Follow-up with orthopedic doctor. Follow-up with a primary care doctor. Return to emergency room for any new or worsening symptoms. Referrals: ANNEL GUERRERO MD [Staff Physician] - 2-3 Days [facility] [Provider Group] - 2-3 Days DAREN RIVAS MD [Staff Physician] - 2-3 Days [facility] [Provider Group] - 2-3 Days [facility], [LAB/CONTRACT] - 2-3 Days Time of Disposition: 12:17 Print Language: [place]
== END 2020-02-16 12:20 | disposition left against medical advice (07) ==
LOC: ED 10:32
DX: M25.552 Pain in left hip (principal); Z53.21 Procedure and treatment not carried out due to patient leaving prior to being seen by health care provider

== ENCOUNTER 2020-03-24 11:08 | Inpatient (IN) | payer OTHER ==
--- NOTE | 2020-03-24 12:31 | Event Note ---
ED Screening Note Date of service: 03/24/20 Time: 12:26 ED Screening Note: This initial assessment/diagnostic orders/clinical plan/treatment(s) is/are subject to change based on patients health status, clinical progression and re- assessment by fellow clinical providers in the ED. Further treatment and workup at subsequent clinical providers discretion. Patient/guardian urged not to elope from the ED as their condition may be serious if not clinically assessed and managed. Initial orders include: 64-year-old male presents to the emergency room complaining of headache, generalized weakness chest pain dry cough states he has chills and his left leg is swollen x2 days. He denies nausea vomiting and diarrhea. States that he is unable to walk patient currently in a wheelchair. He reports a history of anemia. He is in no acute distress
--- NOTE | 2020-03-24 12:57 | XRay Report ---
CHEST 2 VIEWS INDICATION / CLINICAL INFORMATION: COUGH. COMPARISON: 09/07/2019 FINDINGS: SUPPORT DEVICES: None. HEART / MEDIASTINUM: No significant abnormality. LUNGS / PLEURA: No significant pulmonary or pleural abnormality. No pneumothorax. ADDITIONAL FINDINGS: No significant additional findings. IMPRESSION: 1. No acute findings. No significant interval change since 09/07/2019. Signer Name: Reggie White MD Signed: 03/24/2020 12:53 PM Workstation Name: [id number]
[2020-03-24] MEDS ORDERED: MORPHINE 4 MG/1 ML INJ IV ONE (13:51)
[2020-03-24] MEDS ORDERED: SODIUM CHLORIDE 0.9% 1000 ML 1,000 ML IV ONE (13:51)
[2020-03-24] MEDS ORDERED: ONDANSETRON 4 MG/2 ML INJ IV ONE (13:51)
--- NOTE | 2020-03-24 13:58 | Emergency Department Report ---
ED General Adult HPI - General Chief complaint: Pain General Stated complaint: GENERAL ILLNESS Time Seen by Provider: 03/24/20 13:43 Source: patient, EMS Mode of arrival: Wheelchair Limitations: Physical Limitation - History of Present Illness Initial comments: Patient is 64 years old male with history of diabetes and chronic anemia with multiple blood transfusions and colonoscopies and endoscopies before. 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 Patient presented to the ER complaining of left hip pain, generalized weakness, chills and difficulty walking because of the left hip pain. Patient denied any recent injury. Patient denied any chest pain or shortness of breath or cough. Patient also denied any hematemesis, hematochezia, melena, hemoptysis or hematuria. Patient has the left hip pain for a while but did not follow-up with the doctor. -: days(s) Severity scale (0 -10): 7 - Related Data Previous Rx's Medication Instructions Recorded Last Taken Type Folic Acid [Folvite] 1 mg PO QDAY 30 Days #30 tablet 02/17/19 Unknown Rx Ferrous Sulfate [Feosol 325 MG tab] 325 mg PO BID #60 tablet 09/08/19 Unknown Rx Pantoprazole [Protonix TAB] 40 mg PO BID 60 Days #30 tablet 09/08/19 Unknown Rx Acetaminophen [Acetaminophen TAB] 1,000 mg PO Q6HR PRN #30 tablet 02/07/20 Unknown Rx Capsaicin 0.075% [Zostrix Hp 1 applicatio TP TID PRN #1 tube 02/07/20 Unknown Rx 0.075%] predniSONE [Deltasone] 20 mg PO QDAY #5 tab 02/07/20 Unknown Rx Allergies Allergy/AdvReac Type Severity Reaction Status Date / Time No Known Allergies Allergy Verified 08/27/17 07:25 ED Review of Systems ROS: Stated complaint: GENERAL ILLNESS Other details as noted in HPI Comment: All other systems reviewed and negative Constitutional: chills. denies: fever ENT: congestion Respiratory: denies: cough, shortness of breath, SOB with exertion Cardiovascular: denies: chest pain, palpitations Gastrointestinal: denies: abdominal pain, nausea, vomiting, diarrhea, constipation, hematemesis, melena, hematochezia Musculoskeletal: arthralgia Neurological: weakness. denies: headache, numbness, paresthesias, confusion, abnormal gait ED Past Medical Hx - Past Medical History Previous Medical History?: Yes Hx Hypertension: No Hx Congestive Heart Failure: No Hx Diabetes: Yes Hx Sickle Cell Disease: No Hx Seizures: No Hx Asthma: No Hx COPD: No Hx Dementia: No Hx HIV: No Additional medical history: ANEMIA. Proximal gut and multiple colon AVM's (endoscopy/colonoscopy March 2017). hep C - Surgical History Past Surgical History?: No - Social History Smoking Status: Current Every Day Smoker Substance Use Type: None - Medications Home Medications: Home Medications Medication Instructions Recorded Confirmed Last Taken Type Folic Acid [Folvite] 1 mg PO QDAY 30 Days #30 tablet 02/17/19 Unknown Rx Ferrous Sulfate [Feosol 325 MG tab] 325 mg PO BID #60 tablet 09/08/19 Unknown Rx Pantoprazole [Protonix TAB] 40 mg PO BID 60 Days #30 tablet 09/08/19 Unknown Rx Acetaminophen [Acetaminophen TAB] 1,000 mg PO Q6HR PRN #30 tablet 02/07/20 Unknown Rx Capsaicin 0.075% [Zostrix Hp 1 applicatio TP TID PRN #1 tube 02/07/20 Unknown Rx 0.075%] predniSONE [Deltasone] 20 mg PO QDAY #5 tab 02/07/20 Unknown Rx ED Physical Exam - General Limitations: Physical Limitation General appearance: alert, in no apparent distress - Head Head exam: Present: atraumatic, normocephalic, normal inspection - Eye Eye exam: Present: normal appearance, PERRL - ENT ENT exam: Present: mucous membranes dry - Neck Neck exam: Present: normal inspection, full ROM. Absent: tenderness, meningismus, lymphadenopathy, thyromegaly - Respiratory Respiratory exam: Present: normal lung sounds bilaterally - Cardiovascular Cardiovascular Exam: Present: regular rate, normal rhythm, normal heart sounds - GI/Abdominal GI/Abdominal exam: Present: soft, normal bowel sounds. Absent: distended, tenderness, guarding, rebound, rigid, organomegaly, mass, bruit, pulsatile mass, hernia - Extremities Exam Extremities exam: Present: normal inspection, full ROM, normal capillary refill. Absent: tenderness, pedal edema, joint swelling, calf tenderness - Back Exam Back exam: Present: normal inspection, full ROM. Absent: CVA tenderness (R), CVA tenderness (L), muscle spasm, paraspinal tenderness, vertebral tenderness - Neurological Exam Neurological exam: Present: alert, oriented X3, CN II-XII intact - Psychiatric Psychiatric exam: Present: normal mood - Skin Skin exam: Present: warm, intact, normal color ED Course Vital Signs 03/24/20 03/24/20 03/24/20 11:35 13:30 13:40 Temperature 98.0 F Pulse Rate 91 H 104 H Respiratory 18 16 Rate Blood Pressure 99/31 130/52 Blood Pressure 130/52 [Left] O2 Sat by Pulse 100 96 Oximetry 03/24/20 03/24/20 03/24/20 14:00 15:00 16:00 Temperature Pulse Rate 94 H 89 Respiratory 14 14 Rate Blood Pressure 126/40 124/52 126/40 Blood Pressure [Left] O2 Sat by Pulse 100 91 100 Oximetry 03/24/20 03/24/20 17:00 18:00 Temperature Pulse Rate Respiratory Rate Blood Pressure 124/52 124/52 Blood Pressure [Left] O2 Sat by Pulse 100 95 Oximetry - EJ/Peripheral Line Neck R Time Out Performed: Yes Indications: nurses unable to establis Skin Cleansed in Sterile Fashion: Yes Size: 20 Dressing Placed: Tegaderm, tape Patient Tolerated Procedure: well, no complications ED Medical Decision Making - Lab Data Result diagrams: 03/24/20 13:33 03/24/20 13:33 - Radiology Data Radiology results: report reviewed - Medical Decision Making Patient is 64 years old male with history of diabetes and chronic anemia with multiple blood transfusions and colonoscopies and endoscopies before. 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 Patient presented to the ER complaining of left hip pain, generalized weakness, chills and difficulty walking because of the left hip pain. Patient denied any recent injury. Patient denied any chest pain or shortness of breath or cough. Patient also denied any hematemesis, hematochezia, melena, hemoptysis or hematuria. Patient has the left hip pain for a while but did not follow-up with the doctor. Patient found to have a hemoglobin of 3.4 and hematocrit of 12. Patient has a similar episode last year and the year before for which patient received 3 units of PRBC. GI was consulted last time, Dr. Norton, she advised last time that patient unless he has an active bleeding there is no need for endoscopy or colonoscopy. I order 3 units of PRBC. I discussed the patient with Dr. Obrien, he agreed to admit the patient to medical service for further management. Critical Care Time: Yes Critical care time in (mins) excluding proc time.: 30 Critical care attestation.: If time is entered above; I have spent that time in minutes in the direct care of this critically ill patient, excluding procedure time. ED Disposition Clinical Impression: Symptomatic anemia, Anemia requiring transfusions, Lightheadedness Disposition: 09 OP ADMIT IP TO THIS HOSP Is pt being admited?: Yes Condition: Stable
[2020-03-24 14:05] LABS: Alanine Aminotransferase 11 units/L (7-56); Albumin 4.2 g/dL (3.9-5); Blood Urea Nitrogen 14 mg/dL (9-20); Calcium 8.6 mg/dL (8.4-10.2); Hemolysis Index 4
[2020-03-24 14:10] LABS: BUN/Creatinine Ratio 23
[2020-03-24 14:49] LABS: Hemoglobin 3.4 gm/dl (11.8-15.2); Red Blood Count 1.96 M/mm3 (3.65-5.03)
[2020-03-24 14:50] LABS: Hematocrit 12.3 % (35.5-45.6); Mean Corpuscular Volume 63 fl (84-94)
[2020-03-24 14:51] LABS: Mean Corpuscular HGB Conc 28 % (32-34); Platelet Count 29 K/mm3 (140-440)
[2020-03-24] MEDS ORDERED: SODIUM CHLORIDE 0.9% 500 ML 500 ML IV ONE (14:52)
[2020-03-24 14:58] LABS: Bilirubin,Urine NEG (Negative); Blood,Urine NEG (Negative); Color,Urine Yellow (Yellow); Mucus,Urine FEW /HPF; Protein,Urine <15 mg/dL mg/dL (Negative)
--- NOTE | 2020-03-24 15:12 | XRay Report ---
LEFT HIP 3 VIEW(S) INDICATION / CLINICAL INFORMATION: left hip pain COMPARISON: 02/07/2020 FINDINGS: BONES / JOINT(S): No acute fracture or subluxation. Moderate bilateral hip arthrosis. Moderate partia lly visualized lumbar spondylosis. Degenerative changes of the bilateral SI joints are similar, worse on the left. SOFT TISSUES: No significant abnormality. ADDITIONAL FINDINGS: None. Signer Name: Reggie White MD Signed: 03/24/2020 3:08 PM Workstation Name: [id number]
[2020-03-24 16:01] LABS: INR 1.09 (0.87-1.13)
[2020-03-24 16:02] LABS: Partial Thromboplastin Time 23.6 Sec. (24.2-36.6)
[2020-03-24] MEDS ORDERED: SODIUM CHLORIDE 0.9% 500 ML 500 ML ONE (18:52)
[2020-03-25] MEDS: FERROUS SULFATE 325 MG TAB PO SCH ×3 (00:41→22:11)
[2020-03-25] MEDS: PANTOPRAZOLE 80 MG in SODIUM CHLORIDE 0.9% 100 ML IV SCH ×2 (00:42→13:52)
[2020-03-25 09:43] LABS: Hematocrit 23.5 % (35.5-45.6); Hemoglobin 7.5 gm/dl (11.8-15.2); Mean Corpuscular HGB Conc 32 % (32-34); Mean Corpuscular Volume 79 fl (84-94); Red Blood Count 2.98 M/mm3 (3.65-5.03)
[2020-03-25 09:47] LABS: Platelet Count 20 K/mm3 (140-440)
[2020-03-25] MEDS ORDERED: SODIUM CHLORIDE 0.9% 500 ML 500 ML IV ONE ×2 (10:00→21:45)
--- NOTE | 2020-03-25 10:07 | History and Physical Report ---
History of Present Illness Date of examination: 03/24/20 Date of admission: 03/24/20 17:55 Chief complaint: Severe weakness for 1 week Left hip pain for 1 week History of present illness: 64 years old male with history of diabetes and chronic anemia with multiple blo od transfusions and colonoscopies and endoscopies before. Last endoscopy was in 2017 and found to have multiple AVM. Patient presented to the ER complaining of left hip pain, generalized weakness, chills and difficulty walking because of the left hip pain. Patient denied any recent injury. Patient denied any chest pain or shortness of breath or cough. Patient also denied any hematemesis, samantha tochezia, melena, hemoptysis or hematuria. Patient has the left hip pain for a while but did not follow-up with the doctor. - Past Medical History Previous Medical History?: Yes --Diabetes: Yes --ANEMIA. Proximal gut and multiple colon AVM's (endoscopy/colonoscopy March 2017). --hep C - Surgical History Past Surgical History?: No - Social History Smoking Status: Current Every Day Smoker Substance Use Type: None Family history Htn - Medications Home Medications: Home Medications Medication Instructions Recorded Confirmed Last Taken Type Folic Acid [Folvite] 1 mg PO QDAY 30 Days #30 tablet 02/17/19 Unknown Rx Ferrous Sulfate [Feosol 325 MG tab] 325 mg PO BID #60 tablet 09/08/19 Unknown Rx Pantoprazole [Protonix TAB] 40 mg PO BID 60 Days #30 tablet 09/08/19 Unknown Rx Acetaminophen [Acetaminophen TAB] 1,000 mg PO Q6HR PRN #30 tablet 02/07/20 Unknown Rx Capsaicin 0.075% [Zostrix Hp 1 applicatio TP TID PRN #1 tube 02/07/20 Unknown Rx 0.075%] predniSONE [Deltasone] 20 mg PO QDAY #5 tab 02/07/20 Unknown Rx Review of Systems ROS: Stated complaint: GENERAL ILLNESS Other details as noted in HPI Comment: All other systems reviewed and negative Constitutional: chills. denies: fever ENT: congestion Respiratory: denies: cough, shortness of breath, SOB with exertion Cardiovascular: denies: chest pain, palpitations Gastrointestinal: denies: abdominal pain, nausea, vomiting, diarrhea, constipation, hematemesis, melena, hematochezia Musculoskeletal: arthralgia Neurological: weakness. denies: headache, numbness, paresthesias, confusion, abnormal gait Medications and Allergies Allergies Allergy/AdvReac Type Severity Reaction Status Date / Time No Known Allergies Allergy Verified 08/27/17 07:25 Home Medications Medication Instructions Recorded Confirmed Last Taken Type Folic Acid [Folvite] 1 mg PO QDAY 30 Days #30 tablet 02/17/19 03/24/20 03/23/20 Rx Ferrous Sulfate [Feosol 325 MG tab] 325 mg PO BID #60 tablet 09/08/19 03/24/20 03/23/20 Rx Pantoprazole [Protonix TAB] 40 mg PO BID 60 Days #30 tablet 09/08/19 03/24/20 Unknown Rx Acetaminophen [Acetaminophen TAB] 1,000 mg PO Q6HR PRN #30 tablet 02/07/20 03/23/20 Rx Active Meds: Active Medications Acetaminophen (Acetaminophen 500 Mg Tab) 1,000 mg PO Q6HR PRN PRN Reason: pain Ferrous Sulfate (Ferrous Sulfate 325 Mg Tab) 325 mg PO BID [facility] [place] Last Admin: 03/25/20 00:41 Dose: 325 mg Documented by: Folic Acid (Folic Acid 1 Mg Tab) 1 mg PO QDAY [facility] [place] Pantoprazole Sodium 80 mg/ (Sodium Chloride) 100 mls @ 10 mls/hr IV DIRECT [facility] Last Admin: 03/25/20 00:42 Dose: 8 mg/hr, 10 mls/hr Documented by: Sodium Chloride (Nacl 0.9% 500 Ml) 500 mls @ 0 mls/hr IV ONCE ONE Stop: 03/25/20 10:01 Pneumococcal Polyvalent Vaccine (Pneumococcal 23 Valent 0.5 Ml Vial) 0.5 ml IM .ONCE ONE Stop: 03/25/20 12:01 Exam - Constitutional Vitals: Temp Pulse Resp BP Pulse Ox 98.1 F 87 18 124/69 98 03/25/20 09:01 03/25/20 09:01 03/25/20 06:05 03/25/20 09:01 03/25/20 09:01 General appearance: Present: no acute distress, well-nourished, other (Pale mucous membranes) - EENT Eyes: Present: PERRL ENT: hearing intact, clear oral mucosa, other - Neck Neck: Present: supple, normal ROM - Respiratory Respiratory effort: normal Respiratory: bilateral: CTA - Cardiovascular Heart rate: 78 Rhythm: regular Heart Sounds: Present: S1 & S2. Absent: rub, click - Extremities Extremities: pulses symmetrical, No edema Peripheral Pulses: within normal limits - Abdominal General gastrointestinal: Present: soft, non-tender, non-distended, normal bowel sounds Male genitourinary: Present: normal - Rectal Rectal Exam: stool dark - Integumentary Integumentary: Present: clear, warm, dry - Musculoskeletal Musculoskeletal: gait normal, strength equal bilaterally - Psychiatric Psychiatric: appropriate mood/affect, intact judgment & insight - Neurologic Neurologic: CNII-XII intact, moves all extremities - Allied Health Allied health notes reviewed: nursing, case management (Now broke) HEART Score - HEART Score Troponin: Troponin T < 0.010 ng/mL (0.00-0.029) 03/24/20 13:33 Results - Labs CBC & Chem 7: 03/25/20 08:38 03/24/20 13:33 Labs: Laboratory Last Values WBC 4.0 K/mm3 (4.5-11.0) L 03/25/20 08:38 RBC 2.98 M/mm3 (3.65-5.03) L 03/25/20 08:38 Hgb 7.5 gm/dl (11.8-15.2) L D 03/25/20 08:38 Hct 23.5 % (35.5-45.6) L D 03/25/20 08:38 MCV 79 fl (84-94) L 03/25/20 08:38 MCH 25 pg (28-32) L 03/25/20 08:38 MCHC 32 % (32-34) 03/25/20 08:38 RDW 26.0 % (13.2-15.2) H 03/25/20 08:38 Plt Count 20 K/mm3 (140-440) L 03/25/20 08:38 PT 13.9 Sec. (12.2-14.9) 03/24/20 15:18 INR 1.09 (0.87-1.13) 03/24/20 15:18 APTT 23.6 Sec. (24.2-36.6) L 03/24/20 15:18 Sodium 139 mmol/L (137-145) 03/24/20 13:33 Potassium 4.1 mmol/L (3.6-5.0) 03/24/20 13:33 Chloride 104.4 mmol/L (98-107) 03/24/20 13:33 Carbon Dioxide 25 mmol/L (22-30) 03/24/20 13:33 Anion Gap 14 mmol/L 03/24/20 13:33 BUN 14 mg/dL (9-20) 03/24/20 13:33 Creatinine 0.6 mg/dL (0.8-1.3) L 03/24/20 13:33 Estimated GFR > 60 ml/min 03/24/20 13:33 BUN/Creatinine Ratio 23 % 03/24/20 13:33 Glucose 165 mg/dL (75-100) H 03/24/20 13:33 Calcium 8.6 mg/dL (8.4-10.2) 03/24/20 13:33 Total Bilirubin 0.60 mg/dL (0.1-1.2) 03/24/20 13:33 AST 18 units/L (5-40) 03/24/20 13:33 ALT 11 units/L (7-56) 03/24/20 13:33 Alkaline Phosphatase 59 units/L (35-129) 03/24/20 13:33 Troponin T < 0.010 ng/mL (0.00-0.029) 03/24/20 13:33 Total Protein 6.6 g/dL (6.3-8.2) 03/24/20 13:33 Albumin 4.2 g/dL (3.9-5) 03/24/20 13:33 Albumin/Globulin Ratio 1.8 % 03/24/20 13:33 Urine Color Yellow (Yellow) 03/24/20 14:23 Urine Turbidity Clear (Clear) 03/24/20 14:23 Urine pH 5.0 (5.0-7.0) 03/24/20 14:23 Ur Specific Tillman 1.013 (1.003-1.030) 03/24/20 14:23 Urine Protein <15 mg/dl mg/dL (Negative) 03/24/20 14:23 Urine Glucose (UA) Neg mg/dL (Negative) 03/24/20 14:23 Urine Ketones Neg mg/dL (Negative) 03/24/20 14:23 Urine Blood Neg (Negative) 03/24/20 14:23 Urine Nitrite Neg (Negative) 03/24/20 14:23 Urine Bilirubin Neg (Negative) 03/24/20 14:23 Urine Urobilinogen 4.0 mg/dL (<2.0) 03/24/20 14:23 Ur Leukocyte Esterase Neg (Negative) 03/24/20 14:23 Urine WBC (Auto) 2.0 /HPF (0.0-6.0) 03/24/20 14:23 Urine RBC (Auto) 1.0 /HPF (0.0-6.0) 03/24/20 14:23 Urine Mucus Few /HPF 03/24/20 14:23 Blood Type A POSITIVE 03/24/20 15:19 Antibody Screen Negative 03/24/20 15:19 Crossmatch See Detail 03/24/20 15:19 Short CBC 03/24/20 03/25/20 Range/Units 13:33 08:38 WBC 3.0 L 4.0 L (4.5-11.0) K/mm3 Hgb 3.4 L* 7.5 L D (11.8-15.2) gm/dl Hct 12.3 L* 23.5 L D (35.5-45.6) % Plt Count 29 L 20 L (140-440) K/mm3 BMP 03/24/20 13:33 Sodium 139 Potassium 4.1 Chloride 104.4 Carbon Dioxide 25 BUN 14 Creatinine 0.6 L Glucose 165 H Calcium 8.6 Cardiac Enzymes 03/24/20 Range/Units 13:33 Troponin T < 0.010 (0.00-0.029) ng/mL Liver Function 03/24/20 Range/Units 13:33 Total Bilirubin 0.60 (0.1-1.2) mg/dL AST 18 (5-40) units/L ALT 11 (7-56) units/L Alkaline Phosphatase 59 (35-129) units/L Albumin 4.2 (3.9-5) g/dL Urine 03/24/20 Range/Units 14:23 Urine Color Yellow (Yellow) Urine pH 5.0 (5.0-7.0) Ur Specific Tillman 1.013 (1.003-1.030) Urine Protein <15 mg/dl (Negative) mg/dL Urine Glucose (UA) Neg (Negative) mg/dL Parker/IV: Voiding Method Urinal IV Catheter Type [Right Hand] right IJ Assessment and Plan Advance Directives: Yes (Full code) VTE prophylaxis?: Mechanical Plan of care discussed with patient/family: Yes - Patient Problems (1) Symptomatic anemia Current Visit: Yes Status: Acute Plan to address problem: Secondary to 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 especially: Patient had a colonoscopy and upper endoscopy in 2018 Major GI consult Transfuse 3 to 4 units of packed red blood cells (2) Anemia requiring transfusions Current Visit: Yes Status: Acute Plan to address problem: Transfuse 3 to 4 units of packed red blood cells GI consult (3) Lower GI bleed Current Visit: Yes Status: Acute Plan to address problem: Secondary to AVMs GI consult requested (4) T2DM (type 2 diabetes mellitus) Current Visit: Yes Status: Chronic Qualifiers: Diabetes mellitus fpc insulin use: unspecified fpc insulin use s tatus Plan to address problem: Coverage for now Check hemoglobin A1c (5) DVT prophylaxis Current Visit: No Status: Acute Plan to address problem: On SCDs and GI prophylaxis
[2020-03-25] MEDS: ACETAMINOPHEN 500 MG TAB PO PRN ×2 (10:36→22:12)
[2020-03-25] MEDS: FOLIC ACID 1 MG TAB PO SCH (10:38)
[2020-03-25 11:28] LABS: Hypochromasia Few; Platelet Estimate Consistent w Auto; Tear Drop Cells Few; Total Cells Counted 100
[2020-03-25] MEDS ORDERED: PNEUMOCOCCAL 23 Valent 0.5 ML VIAL IM ONE (12:00)
[2020-03-25] MEDS ORDERED: FLU VACC QUAD 2020-2021 (6 months +)/PF 60 0.5 ML SYRINGE IM ONE (12:00)
--- NOTE | 2020-03-25 16:57 | Event Note ---
Date: 03/25/20 full consult dictated - pt will need egd/colon but need increase plt count - transfuse plt (or consult hematology) per primary team - will tentatively plan egd/colon for am (ok to hold by priary team if unable to give platelets) -will follow
[2020-03-25] MEDS ORDERED: POLYETHYLENE GLYCOL/ELECT SOLN 4000 ML PO ONE (18:00)
--- NOTE | 2020-03-25 20:21 | Consultation ---
REFERRING PHYSICIAN: Melvin Obrien MD INDICATION: 1. Anemia. 2. GI bleed. HISTORY OF PRESENT ILLNESS: The patient is a 64-year-old black male with history of diabetes, chronic anemia with transfusions in the past, presents for GI evaluation. The patient reports he has been having left hip pain and progressive weakness. He denies any bright red blood per rectum, melena or hematemesis. The patient subsequently came to the Emergency Room where he was noted to be profoundly anemic, admitted and GI consulted. The patient has a history of AVMs in both upper and lower GI tracts with the last EGD, colonoscopy with AVM treatment back in 2018. No other specific complaints. PAST MEDICAL HISTORY: 1. Diabetes. 2. Anemia. 3. Hep C. MEDICATIONS: Reviewed and updated in chart. ALLERGIES: No known drug allergies. SOCIAL HISTORY: Denies alcohol, tobacco or drug abuse. FAMILY HISTORY: Negative for colon cancer, IBD, or liver disease. REVIEW OF SYSTEMS: GENERAL: Reports some weakness. HEENT: No visual complaints or tinnitus. PULMONARY: No shortness of breath. No cough. No chest pain. GASTROINTESTINAL: Denies any obvious signs of bleeding. All points of 13-point review of systems are otherwise negative. PHYSICAL EXAMINATION: VITAL SIGNS: Temperature of 98.2, pulse 82, respirations 18, blood pressure 142/75. GENERAL: Fairly nourished male in no acute distress. HEENT: Pupils equal, round and reactive. PULMONARY: Clear. CARDIOVASCULAR: Regular rhythm. Normal S1, S2. ABDOMEN: Positive bowel sounds, soft. SKIN: No obvious rashes. LABORATORY DATA: Pertinent for white count of 4.0, hemoglobin and hematocrit of 7.5 and 23.5. Initial hemoglobin and hematocrit of 3.1 and 12.3 prior to 4 units of transfusion. Platelet count of 20. INR of 1.09. Chem-7 within normal limits. ASSESSMENT: A 64-year-old male with a history of upper and lower GI arteriovenous malformations with treatment in the past, last in 2018, now with symptomatic anemia. The patient will eventually require EGD and colonoscopy, but will require his platelet count to be more up prior to procedure. PLAN: 1. Follow hematocrit and transfuse as needed. 2. Increase platelet count per primary team and hematology. 3. PPI daily. 4. Plan EGD and colonoscopy in a.m. if stable. JOB# [id number] JAIME/NTS
--- NOTE | 2020-03-25 21:48 | Progress Note ---
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 especially: Patient had a colonoscopy and upper endoscopy in 2018 Major GI consult Transfuse 3 to 4 units of packed red blood cells (2) Anemia requiring transfusions Current Visit: Yes Status: Acute Plan to address problem: Transfuse 3 to 4 units of packed red blood cells GI consult (3) Lower GI bleed Current Visit: Yes Status: Acute Plan to address problem: Secondary to AVMs GI consult requested (4) T2DM (type 2 diabetes mellitus) Current Visit: Yes Status: Chronic 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 Patient presented to the ER complaining of left hip pain, generalized weakness, chills and difficulty walking because of the left hip pain. Patient denied any recent injury. Patient denied any chest pain or shortness of breath or cough. Patient also denied any hematemesis, hematochezia, melena, hemoptysis or hematuria. Patient has the left hip pain fo r a while but did not follow-up with the doctor. 03/25/2020 GI consult appreciated Patient is thrombocytopenic Hematology consult requested Hemoglobin improved to 7.5 Objective - Constitutional Vitals: Vital Signs - 12hr 03/25/20 03/25/20 03/25/20 12:18 14:32 16:43 Temperature 97.3 F L Pulse Rate 87 78 Respiratory 18 20 Rate Blood Pressure 124/62 103/72 139/55 O2 Sat by Pulse 98 98 Oximetry General appearance: Present: no acute distress, well-nourished - EENT Eyes: PERRL, EOM intact ENT: hearing intact, clear oral mucosa Ears: bilateral: normal - Neck Neck: supple, normal ROM - Respiratory Respiratory effort: normal Respiratory: bilateral: CTA - Breasts Breasts: normal - Cardiovascular Heart rate: 78 Rhythm: regular Heart Sounds: Present: S1 & S2. Absent: gallop, rub Extremities: pulses intact, No edema, normal color, Full ROM - Gastrointestinal General gastrointestinal: Present: soft, non-tender, non-distended, normal bowel sounds - Genitourinary Male genitourinary: normal - Integumentary Integumentary: clear, warm, dry - Musculoskeletal Musculoskeletal: 1, strength equal bilaterally - Neurologic Neurologic: moves all extremities - Psychiatric Psychiatric: memory intact, appropriate mood/affect, intact judgment & insight - Allied health notes Allied health notes reviewed: nursing, case management - Labs CBC & Chem 7: 03/25/20 08:38 03/24/20 13:33 Labs: Abnormal lab results 03/24/20 03/25/20 Range/Units 15:19 08:38 WBC 4.0 L (4.5-11.0) K/mm3 RBC 2.98 L (3.65-5.03) M/mm3 Hgb 7.5 L D (11.8-15.2) gm/dl Hct 23.5 L D (35.5-45.6) % MCV 79 L (84-94) fl MCH 25 L (28-32) pg RDW 26.0 H (13.2-15.2) % Plt Count 20 L (140-440) K/mm3 Lymphocytes # (Manual) 1.0 L (1.2-5.4) K/mm3 Crossmatch See Detail HEART Score - HEART Score Troponin: Troponin T < 0.010 ng/mL (0.00-0.029) 03/24/20 13:33
--- NOTE | 2020-03-25 22:34 | Hem/Onc Consultation ---
History of Present Illness - History of Present Illness HEME/ONC DATA REVIEW CONSULT TO FOLLOW heme consult for pancytopenia, requested by Dr. Obrien 64yo man with h/o AVM, chronic iron deficiency, several hospitalizations during the past 6 years for severe anemia, usually with very low plt count 20's, refractory to plt transfusions-->sometimes very high plt count 1.5M Now eval for severe anemia and low plt count 20's has already received RBC transfusions, planning plt transfusion PMH: HCV (treated?) imaging from past few years shows normal-appearing liver and spleen Soc: smoker, h/o alcohol dependence several years ago, per notes DATA REVIEWED BELOW IMPRESSION: chronic iron deficiency anemia, maybe due too chronic bleeding he could have "Xldig-Pjitl-Xjgct/HHT" syndrome another possibility is PNH syndrome with chronic hemolytic anemia low plt count is best explained as ITP, maybe related to bleeding tendency RECOMMEND: plt transfusion requested by hospitalist consider IVIG infusion if plt transfusion does not increase count he should get outpatient ITP treatment to try to maintain goal plt count >50 labs to include LDH, daren will try for outpt televisit hematology f/u after discharge Vital Signs Temp Pulse Resp BP Pulse Ox 98.2 F 87 17 137/83 60 L 03/25/20 22:04 03/25/20 22:04 03/25/20 22:12 03/25/20 22:04 03/25/20 22:04 Temperature -Last 24 Hours Temperature 98.2 F Temperature 97.3 F Temperature 98.1 F Temperature 98.2 F Temperature 98.2 F Temperature 98.7 F Temperature 98.2 F Temperature 98.1 F Temperature 98.7 F Temperature 98.4 F Temperature 97.9 F Temperature 97.8 F Active Medications Acetaminophen (Acetaminophen 500 Mg Tab) 1,000 mg PO Q6HR PRN PRN Reason: pain Last Admin: 03/25/20 22:12 Dose: 1,000 mg Documented by: Ferrous Sulfate (Ferrous Sulfate 325 Mg Tab) 325 mg PO BID [facility] Last Admin: 03/25/20 22:11 Dose: 325 mg Documented by: Folic Acid (Folic Acid 1 Mg Tab) 1 mg PO QDAY [facility] Last Admin: 03/25/20 10:38 Dose: 1 mg Documented by: Pantoprazole Sodium 80 mg/ (Sodium Chloride) 100 mls @ 10 mls/hr IV DIRECT [facility] Last Admin: 03/25/20 13:52 Dose: 8 mg/hr, 10 mls/hr Documented by: Laboratory Last Values WBC 4.0 K/mm3 (4.5-11.0) L 03/25/20 08:38 Hgb 7.5 gm/dl (11.8-15.2) L D 03/25/20 08:38 Hct 23.5 % (35.5-45.6) L D 03/25/20 08:38 MCV 79 fl (84-94) L 03/25/20 08:38 Plt Count 20 K/mm3 (140-440) L 03/25/20 08:38 INR 1.09 (0.87-1.13) 03/24/20 15:18 Creatinine 0.6 mg/dL (0.8-1.3) L 03/24/20 13:33 AST 18 units/L (5-40) 03/24/20 13:33 ALT 11 units/L (7-56) 03/24/20 13:33 Alkaline Phosphatase 59 units/L (35-129) 03/24/20 13:33 Crossmatch See Detail 03/24/20 15:19 Medications and Allergies Allergies Allergy/AdvReac Type Severity Reaction Status Date / Time No Known Allergies Allergy Verified 08/27/17 07:25 Home Medications Medication Instructions Recorded Confirmed Last Taken Type Folic Acid [Folvite] 1 mg PO QDAY 30 Days #30 tablet 02/17/19 03/24/20 03/23/20 Rx Ferrous Sulfate [Feosol 325 MG tab] 325 mg PO BID #60 tablet 09/08/19 03/24/20 03/23/20 Rx Pantoprazole [Protonix TAB] 40 mg PO BID 60 Days #30 tablet 09/08/19 03/24/20 Unknown Rx Acetaminophen [Acetaminophen TAB] 1,000 mg PO Q6HR PRN #30 tablet 02/07/20 03/23/20 Rx Active Meds: Active Medications Acetaminophen (Acetaminophen 500 Mg Tab) 1,000 mg PO Q6HR PRN PRN Reason: pain Last Admin: 03/25/20 22:12 Dose: 1,000 mg Documented by: Ferrous Sulfate (Ferrous Sulfate 325 Mg Tab) 325 mg PO BID [facility] Last Admin: 03/25/20 22:11 Dose: 325 mg Documented by: Folic Acid (Folic Acid 1 Mg Tab) 1 mg PO QDAY [facility] Last Admin: 03/25/20 10:38 Dose: 1 mg Documented by: Pantoprazole Sodium 80 mg/ (Sodium Chloride) 100 mls @ 10 mls/hr IV DIRECT [facility] Last Admin: 03/25/20 13:52 Dose: 8 mg/hr, 10 mls/hr Documented by: Exam - Constitutional Vitals: Last Vital Signs Temp 98.2 F 03/25/20 22:04 Pulse 87 03/25/20 22:04 Resp 17 03/25/20 22:12 BP 137/83 03/25/20 22:04 Pulse Ox 60 L 03/25/20 22:04 Results - Labs lab Results: Laboratory Results - last 24 hr 03/24/20 03/25/20 03/25/20 15:19 08:38 08:38 WBC 4.0 L RBC 2.98 L Hgb 7.5 L D Hct 23.5 L D MCV 79 L MCH 25 L MCHC 32 RDW 26.0 H Plt Count 20 L Add Manual Diff Complete Total Counted 100 Seg Neuts % (Manual) 63.0 Lymphocytes % (Manual) 26.0 Monocytes % (Manual) 3.0 Eosinophils % (Manual) 4.0 Metamyelocytes % 4.0 Nucleated RBC % Not Reportable Seg Neutrophils # Man 2.5 Band Neutrophils # 0.0 Lymphocytes # (Manual) 1.0 L Abs React Lymphs (Man) 0.0 Monocytes # (Manual) 0.1 Eosinophils # (Manual) 0.2 Basophils # (Manual) 0.0 Metamyelocytes # 0.2 Myelocytes # 0.0 Promyelocytes # 0.0 Blast Cells # 0.0 WBC Morphology Not Reportable TNR Hypersegmented Neuts Not Reportable Hyposegmented Neuts Not Reportable Hypogranular Neuts Not Reportable Smudge Cells Not Reportable Toxic Granulation Not Reportable Toxic Vacuolation Not Reportable Dohle Bodies Not Reportable Pelger-Huet Anomaly Not Reportable Katia Rods Not Reportable Platelet Estimate Consistent w auto Clumped Platelets Not Reportable Plt Clumps, EDTA Not Reportable Large Platelets Not Reportable Giant Platelets Not Reportable Platelet Satelliting Not Reportable Plt Morphology Comment Not Reportable RBC Morphology Not Reportable Dimorphic RBCs Not Reportable Polychromasia Not Reportable Hypochromasia Few Poikilocytosis Not Reportable Anisocytosis Not Reportable Microcytosis Not Reportable Macrocytosis Not Reportable Spherocytes Not Reportable Pappenheimer Bodies Not Reportable Sickle Cells Not Reportable Target Cells Not Reportable Tear Drop Cells Few Ovalocytes Not Reportable Helmet Cells Not Reportable [place] Bodies Not Reportable [place] Rings Not Reportable [place] Cells Not Reportable Bite Cells Not Reportable Crenated Cell Not Reportable Elliptocytes 1+ Acanthocytes (Spur) Not Reportable Rouleaux Not Reportable Hemoglobin C Crystals Not Reportable Schistocytes Not Reportable Malaria parasites Not Reportable Jl Bodies Not Reportable Hem Pathologist Commnt No Nasal Screen MRSA (PCR) Blood Type A POSITIVE Antibody Screen Negative Crossmatch See Detail 03/25/20 09:01 WBC RBC Hgb Hct MCV MCH MCHC RDW Plt Count Add Manual Diff Total Counted Seg Neuts % (Manual) Lymphocytes % (Manual) Monocytes % (Manual) Eosinophils % (Manual) Metamyelocytes % Nucleated RBC % Seg Neutrophils # Man Band Neutrophils # Lymphocytes # (Manual) Abs React Lymphs (Man) Monocytes # (Manual) Eosinophils # (Manual) Basophils # (Manual) Metamyelocytes # Myelocytes # Promyelocytes # Blast Cells # WBC Morphology Hypersegmented Neuts Hyposegmented Neuts Hypogranular Neuts Smudge Cells Toxic Granulation Toxic Vacuolation Dohle Bodies Pelger-Huet Anomaly Katia Rods Platelet Estimate Clumped Platelets Plt Clumps, EDTA Large Platelets Giant Platelets Platelet Satelliting Plt Morphology Comment RBC Morphology Dimorphic RBCs Polychromasia Hypochromasia Poikilocytosis Anisocytosis Microcytosis Macrocytosis Spherocytes Pappenheimer Bodies Sickle Cells Target Cells Tear Drop Cells Ovalocytes Helmet Cells [place] Bodies [place] Rings Luke Cells Bite Cells Crenated Cell Elliptocytes Acanthocytes (Spur) Rouleaux Hemoglobin C Crystals Schistocytes Malaria parasites Jl Bodies Hem Pathologist Commnt Nasal Screen MRSA (PCR) Negative Blood Type Antibody Screen Crossmatch
[2020-03-26] MEDS: PANTOPRAZOLE 80 MG in SODIUM CHLORIDE 0.9% 100 ML IV SCH (00:01)
[2020-03-26] MEDS ORDERED: SODIUM CHLORIDE 0.9% 500 ML 500 ML IV ONE ×2 (02:05→17:00)
[2020-03-26 08:01] LABS: Hemoglobin 6.4 gm/dl (11.8-15.2); Mean Corpuscular HGB Conc 33 % (32-34); Mean Corpuscular Volume 80 fl (84-94); Red Blood Count 2.44 M/mm3 (3.65-5.03)
[2020-03-26 08:12] LABS: Hematocrit 19.6 % (35.5-45.6); Red Cell Distribution Width 24.6 % (13.2-15.2)
[2020-03-26 08:14] LABS: Platelet Count 13 K/mm3 (140-440)
[2020-03-26 08:22] LABS: Blood Urea Nitrogen 14 mg/dL (9-20); Calcium 8.1 mg/dL (8.4-10.2); Hemolysis Index 7
[2020-03-26 08:38] LABS: BUN/Creatinine Ratio 23
[2020-03-26] MEDS ORDERED: IMMUNE GLOBULIN IV ONE (10:00)
[2020-03-26] MEDS ORDERED: [UNRECOGNIZED DRUG - OTHER] IV ONE (10:00)
[2020-03-26] MEDS ORDERED: ACETAMINOPHEN 325 MG TAB PO ONE (10:00)
[2020-03-26] MEDS ORDERED: IGA AVG IV ONE (10:00)
[2020-03-26] MEDS ORDERED: GLY IV ONE (10:00)
[2020-03-26] MEDS ORDERED: diphenhydrAMINE 50 MG/ML VIAL IV ONE (10:00)
[2020-03-26] MEDS ORDERED: IMMUNE GLOBUL IV ONE (10:00)
[2020-03-26] MEDS ORDERED: [UNRECOGNIZED DRUG - OTHER] IV ONE (10:00)
[2020-03-26 10:14] LABS: Hemoglobin 6.3 gm/dl (11.8-15.2)
[2020-03-26] MEDS: FOLIC ACID 1 MG TAB PO SCH (10:16)
[2020-03-26] MEDS: FERROUS SULFATE 325 MG TAB PO SCH ×2 (10:16→22:23)
[2020-03-26 10:34] LABS: Anisocytosis 2+; Hypochromasia 1+; Poikilocytosis 1+; Total Cells Counted 100
[2020-03-26 10:35] LABS: Ovalocytes Few; Platelet Estimate Appears Decreased
[2020-03-26] MEDS: SODIUM CHLORIDE 0.9% 1000 ML 1,000 ML IV SCH (10:45)
--- NOTE | 2020-03-26 10:46 | Hem/Onc Progress Note ---
Subjective Interval history: data review 64yo man with h/o AVM, chronic iron deficiency, several hospitalizations during the past 6 years for severe anemia, usually with very low plt count 20's, refractory to plt transfusions-->sometimes very high plt count 1.5M Now eval for severe anemia and low plt count 20's has already received RBC transfusions, planning plt transfusion still severe anemia did not respond to plt transfusion DATA REVIEWED BELOW IMPRESSION: chronic iron deficiency anemia, likely due to chronic GI bleeding; he may have OWR/HHT severe anemia maybe due to acute GI tract bleeding 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 RECOMMEND: skip plt transfusions for now RBC transfusions for severe anemia trial of IVIG when possible Laboratory Last Values WBC 5.6 K/mm3 (4.5-11.0) 03/26/20 06:59 Hgb 6.3 gm/dl (11.8-15.2) L 03/26/20 09:56 Hct 19.0 % (35.5-45.6) L* 03/26/20 09:56 MCV 80 fl (84-94) L 03/26/20 06:59 Plt Count 14 K/mm3 (140-440) L* 03/26/20 09:56 Total Bilirubin 0.60 mg/dL (0.1-1.2) 03/24/20 13:33 Lactate Dehydrogenase 195 units/L (91-180) H 03/26/20 06:59 Antibody Screen Negative 03/24/20 15:19 Direct Antiglob Test Negative 03/25/20 00:40 SLIM, Poly Interpret Negative 03/25/20 00:40 Crossmatch See Detail 03/24/20 15:19 Objective - Constitutional Vitals: Last Vital Signs Temp 98.2 F 03/26/20 08:50 Pulse 117 H 03/26/20 08:50 Resp 20 03/26/20 08:50 BP 140/56 03/26/20 08:50 Pulse Ox 97 03/26/20 08:50 - Labs Lab Results: Laboratory Results - last 24 hr 03/24/20 03/25/20 03/25/20 15:19 00:40 08:38 WBC RBC Hgb Hct MCV MCH MCHC RDW Plt Count Add Manual Diff Complete Total Counted 100 Seg Neuts % (Manual) 63.0 Lymphocytes % (Manual) 26.0 Monocytes % (Manual) 3.0 Eosinophils % (Manual) 4.0 Metamyelocytes % 4.0 Nucleated RBC % Not Reportable Seg Neutrophils # Man 2.5 Band Neutrophils # 0.0 Lymphocytes # (Manual) 1.0 L Abs React Lymphs (Man) 0.0 Monocytes # (Manual) 0.1 Eosinophils # (Manual) 0.2 Basophils # (Manual) 0.0 Metamyelocytes # 0.2 Myelocytes # 0.0 Promyelocytes # 0.0 Blast Cells # 0.0 WBC Morphology Not Reportable Hypersegmented Neuts Not Reportable Hyposegmented Neuts Not Reportable Hypogranular Neuts Not Reportable Smudge Cells Not Reportable Toxic Granulation Not Reportable Toxic Vacuolation Not Reportable Dohle Bodies Not Reportable Pelger-Huet Anomaly Not Reportable Katia Rods Not Reportable Platelet Estimate Consistent w auto Clumped Platelets Not Reportable Plt Clumps, EDTA Not Reportable Large Platelets Not Reportable Giant Platelets Not Reportable Platelet Satelliting Not Reportable Plt Morphology Comment Not Reportable RBC Morphology Not Reportable Dimorphic RBCs Not Reportable Polychromasia Not Reportable Hypochromasia Few Poikilocytosis Not Reportable Anisocytosis Not Reportable Microcytosis Not Reportable Macrocytosis Not Reportable Spherocytes Not Reportable Pappenheimer Bodies Not Reportable Sickle Cells Not Reportable Target Cells Not Reportable Tear Drop Cells Few Ovalocytes Not Reportable Helmet Cells Not Reportable [place] Bodies Not Reportable [place] Rings Not Reportable Luke Cells Not Reportable Bite Cells Not Reportable Crenated Cell Not Reportable Elliptocytes 1+ Acanthocytes (Spur) Not Reportable Rouleaux Not Reportable Hemoglobin C Crystals Not Reportable Schistocytes Not Reportable Malaria parasites Not Reportable Jl Bodies Not Reportable Hem Pathologist Commnt No Sodium Potassium Chloride Carbon Dioxide Anion Gap BUN Creatinine Estimated GFR BUN/Creatinine Ratio Glucose Calcium Lactate Dehydrogenase Nasal Screen MRSA (PCR) Blood Type A POSITIVE Antibody Screen Negative Direct Antiglob Test Negative SLIM, Poly Interpret Negative Crossmatch See Detail 03/25/20 03/26/20 03/26/20 09:01 06:59 06:59 WBC 5.6 RBC 2.44 L Hgb 6.4 L Hct 19.6 L* MCV 80 L MCH 26 L MCHC 33 RDW 24.6 H Plt Count 13 L* Add Manual Diff Complete Total Counted 100 Seg Neuts % (Manual) 90.0 H Lymphocytes % (Manual) 5.0 L Monocytes % (Manual) 3.0 Eosinophils % (Manual) 2.0 Metamyelocytes % Nucleated RBC % Not Reportable Seg Neutrophils # Man 5.0 Band Neutrophils # 0.0 Lymphocytes # (Manual) 0.3 L Abs React Lymphs (Man) 0.0 Monocytes # (Manual) 0.2 Eosinophils # (Manual) 0.1 Basophils # (Manual) 0.0 Metamyelocytes # 0.0 Myelocytes # 0.0 Promyelocytes # 0.0 Blast Cells # 0.0 WBC Morphology Not Reportable Hypersegmented Neuts Not Reportable Hyposegmented Neuts Not Reportable Hypogranular Neuts Not Reportable Smudge Cells Not Reportable Toxic Granulation Not Reportable Toxic Vacuolation Not Reportable Dohle Bodies Not Reportable Pelger-Huet Anomaly Not Reportable Katia Rods Not Reportable Platelet Estimate Appears decreased Clumped Platelets Not Reportable Plt Clumps, EDTA Not Reportable Large Platelets Not Reportable Giant Platelets Not Reportable Platelet Satelliting Not Reportable Plt Morphology Comment Not Reportable RBC Morphology Not Reportable Dimorphic RBCs Not Reportable Polychromasia Not Reportable Hypochromasia 1+ Poikilocytosis 1+ Anisocytosis 2+ Microcytosis Not Reportable Macrocytosis Not Reportable Spherocytes Not Reportable Pappenheimer Bodies Not Reportable Sickle Cells Not Reportable Target Cells Not Reportable Tear Drop Cells Not Reportable Ovalocytes Few Helmet Cells Not Reportable [place] Bodies Not Reportable [place] Rings Not Reportable Luke Cells Not Reportable Bite Cells Not Reportable Crenated Cell Not Reportable Elliptocytes Few Acanthocytes (Spur) Not Reportable Rouleaux Not Reportable Hemoglobin C Crystals Not Reportable Schistocytes Not Reportable Malaria parasites Not Reportable Jl Bodies Not Reportable Hem Pathologist Commnt No Sodium 141 Potassium 4.1 Chloride 107.9 H Carbon Dioxide 28 Anion Gap 9 BUN 14 Creatinine 0.6 L Estimated GFR > 60 BUN/Creatinine Ratio 23 Glucose 78 Calcium 8.1 L Lactate Dehydrogenase 195 H Nasal Screen MRSA (PCR) Negative Blood Type Antibody Screen Direct Antiglob Test SLIM, Poly Interpret Crossmatch 03/26/20 09:56 WBC RBC Hgb 6.3 L Hct 19.0 L* MCV MCH MCHC RDW Plt Count 14 L* Add Manual Diff Total Counted Seg Neuts % (Manual) Lymphocytes % (Manual) Monocytes % (Manual) Eosinophils % (Manual) Metamyelocytes % Nucleated RBC % Seg Neutrophils # Man Band Neutrophils # Lymphocytes # (Manual) Abs React Lymphs (Man) Monocytes # (Manual) Eosinophils # (Manual) Basophils # (Manual) Metamyelocytes # Myelocytes # Promyelocytes # Blast Cells # WBC Morphology Hypersegmented Neuts Hyposegmented Neuts Hypogranular Neuts Smudge Cells Toxic Granulation Toxic Vacuolation Dohle Bodies Pelger-Huet Anomaly Katia Rods Platelet Estimate Clumped Platelets Plt Clumps, EDTA Large Platelets Giant Platelets Platelet Satelliting Plt Morphology Comment RBC Morphology Dimorphic RBCs Polychromasia Hypochromasia Poikilocytosis Anisocytosis Microcytosis Macrocytosis Spherocytes Pappenheimer Bodies Sickle Cells Target Cells Tear Drop Cells Ovalocytes Helmet Cells [place] Bodies Social Circle Rings [place] Cells Bite Cells Crenated Cell Elliptocytes Acanthocytes (Spur) Rouleaux Hemoglobin C Crystals Schistocytes Malaria parasites Jl Bodies Hem Pathologist Commnt Sodium Potassium Chloride Carbon Dioxide Anion Gap BUN Creatinine Estimated GFR BUN/Creatinine Ratio Glucose Calcium Lactate Dehydrogenase Nasal Screen MRSA (PCR) Blood Type Antibody Screen Direct Antiglob Test SLIM, Poly Interpret Crossmatch Medications & Allergies - Medications Allergies/Adverse Reactions: Allergies No Known Allergies Allergy (Verified 08/27/17 07:25) Home Medications: Home Medications Medication Instructions Recorded Confirmed Last Taken Type Folic Acid [Folvite] 1 mg PO QDAY 30 Days #30 tablet 02/17/19 03/24/20 03/23/20 Rx Ferrous Sulfate [Feosol 325 MG tab] 325 mg PO BID #60 tablet 09/08/19 03/24/20 03/23/20 Rx Pantoprazole [Protonix TAB] 40 mg PO BID 60 Days #30 tablet 09/08/19 03/24/20 Unknown Rx Acetaminophen [Acetaminophen TAB] 1,000 mg PO Q6HR PRN #30 tablet 02/07/20 03/23/20 Rx Active Medications: Generic Name Dose Route Start Last Admin Trade Name Freq PRN Reason Stop Dose Admin Acetaminophen 1,000 mg 03/24/20 22:14 03/25/20 22:12 Acetaminophen 500 Mg Tab PO 1,000 mg Q6HR PRN Administration pain Acetaminophen 650 mg 03/26/20 10:40 Acetaminophen 325 Mg Tab PO Q4H PRN Pain, Mild (1-3) Diphenhydramine HCl 25 mg 03/26/20 10:39 Diphenhydramine 50 Mg/Ml Vial IV Q6H PRN Rash Ferrous Sulfate 325 mg 03/24/20 23:00 03/26/20 10:16 Ferrous Sulfate 325 Mg Tab PO 325 mg BID LUCIAN Administration Folic Acid 1 mg 03/25/20 10:00 03/26/20 10:16 Folic Acid 1 Mg Tab PO 1 mg QDAY LUCIAN Administration Pantoprazole Sodium 80 mg/ 100 mls @ 10 mls/hr 03/24/20 23:00 03/26/20 00:01 Sodium Chloride IV 8 mg/hr DIRECT LUCIAN 10 mls/hr Administration 8 MG/HR Sodium Chloride 1,000 mls @ 50 mls/hr 03/26/20 08:15 Nacl 0.9% 1000 Ml IV DIRECT LUCIAN
[2020-03-26] MEDS ORDERED: diphenhydrAMINE 50 MG/ML VIAL IV PRN (11:00)
--- NOTE | 2020-03-26 15:25 | Gastroenterology Progress Note ---
Assessment and Plan GI: h/o anemia and AVM now presents w/ aneia along with noted low platelets - no further signs bleeding but noted decrease platelets, too low for any endoscopic procedures - Hematology input noted - follow h/h, transfuse as needed - would prefer platelets >50 before procedures - soft diet - PPI qd - will follow Subjective Date of service: 03/26/20 Principal diagnosis: Symptomatic anemia, chronic GI bleed Interval history: - no signs bleeding or other GI complaints overnight Objective - Constitutional Vitals: Temp Pulse Resp BP Pulse Ox 97.9 F 109 H 18 125/65 97 03/26/20 11:13 03/26/20 11:55 03/26/20 11:13 03/26/20 11:13 03/26/20 11:13 General appearance: no acute distress - EENT Eyes: PERRL - Respiratory Respiratory: bilateral: CTA - Cardiovascular Rhythm: regular Heart Sounds: Present: S1 & S2 - Gastrointestinal General gastrointestinal: Present: soft, non-tender, non-distended - Labs CBC & Chem 7: 03/26/20 09:56 03/26/20 06:59 Labs: Laboratory Results - last 24 hr 03/24/20 03/25/20 03/26/20 15:19 00:40 06:59 WBC RBC Hgb Hct MCV MCH MCHC RDW Plt Count Add Manual Diff Total Counted Seg Neuts % (Manual) Lymphocytes % (Manual) Monocytes % (Manual) Eosinophils % (Manual) Nucleated RBC % Seg Neutrophils # Man Band Neutrophils # Lymphocytes # (Manual) Abs React Lymphs (Man) Monocytes # (Manual) Eosinophils # (Manual) Basophils # (Manual) Metamyelocytes # Myelocytes # Promyelocytes # Blast Cells # WBC Morphology Hypersegmented Neuts Hyposegmented Neuts Hypogranular Neuts Smudge Cells Toxic Granulation Toxic Vacuolation Dohle Bodies Pelger-Huet Anomaly Katia Rods Platelet Estimate Clumped Platelets Plt Clumps, EDTA Large Platelets Giant Platelets Platelet Satelliting Plt Morphology Comment RBC Morphology Dimorphic RBCs Polychromasia Hypochromasia Poikilocytosis Anisocytosis Microcytosis Macrocytosis Spherocytes Pappenheimer Bodies Sickle Cells Target Cells Tear Drop Cells Ovalocytes Helmet Cells [place] Bodies [place] Rings Luke Cells Bite Cells Crenated Cell Elliptocytes Acanthocytes (Spur) Rouleaux Hemoglobin C Crystals Schistocytes Malaria parasites Jl Bodies Hem Pathologist Commnt Sodium 141 Potassium 4.1 Chloride 107.9 H Carbon Dioxide 28 Anion Gap 9 BUN 14 Creatinine 0.6 L Estimated GFR > 60 BUN/Creatinine Ratio 23 Glucose 78 Calcium 8.1 L Lactate Dehydrogenase 195 H Blood Type A POSITIVE Antibody Screen Negative Direct Antiglob Test Negative SLIM, Poly Interpret Negative Crossmatch See Detail 03/26/20 03/26/20 06:59 09:56 WBC 5.6 RBC 2.44 L Hgb 6.4 L 6.3 L Hct 19.6 L* 19.0 L* MCV 80 L MCH 26 L MCHC 33 RDW 24.6 H Plt Count 13 L* 14 L* Add Manual Diff Complete Total Counted 100 Seg Neuts % (Manual) 90.0 H Lymphocytes % (Manual) 5.0 L Monocytes % (Manual) 3.0 Eosinophils % (Manual) 2.0 Nucleated RBC % Not Reportable Seg Neutrophils # Man 5.0 Band Neutrophils # 0.0 Lymphocytes # (Manual) 0.3 L Abs React Lymphs (Man) 0.0 Monocytes # (Manual) 0.2 Eosinophils # (Manual) 0.1 Basophils # (Manual) 0.0 Metamyelocytes # 0.0 Myelocytes # 0.0 Promyelocytes # 0.0 Blast Cells # 0.0 WBC Morphology Not Reportable Hypersegmented Neuts Not Reportable Hyposegmented Neuts Not Reportable Hypogranular Neuts Not Reportable Smudge Cells Not Reportable Toxic Granulation Not Reportable Toxic Vacuolation Not Reportable Dohle Bodies Not Reportable Pelger-Huet Anomaly Not Reportable Katia Rods Not Reportable Platelet Estimate Appears decreased Clumped Platelets Not Reportable Plt Clumps, EDTA Not Reportable Large Platelets Not Reportable Giant Platelets Not Reportable Platelet Satelliting Not Reportable Plt Morphology Comment Not Reportable RBC Morphology Not Reportable Dimorphic RBCs Not Reportable Polychromasia Not Reportable Hypochromasia 1+ Poikilocytosis 1+ Anisocytosis 2+ Microcytosis Not Reportable Macrocytosis Not Reportable Spherocytes Not Reportable Pappenheimer Bodies Not Reportable Sickle Cells Not Reportable Target Cells Not Reportable Tear Drop Cells Not Reportable Ovalocytes Few Helmet Cells Not Reportable [place] Bodies Not Reportable [place] Rings Not Reportable Luke Cells Not Reportable Bite Cells Not Reportable Crenated Cell Not Reportable Elliptocytes Few Acanthocytes (Spur) Not Reportable Rouleaux Not Reportable Hemoglobin C Crystals Not Reportable Schistocytes Not Reportable Malaria parasites Not Reportable Jl Bodies Not Reportable Hem Pathologist Commnt No Sodium Potassium Chloride Carbon Dioxide Anion Gap BUN Creatinine Estimated GFR BUN/Creatinine Ratio Glucose Calcium Lactate Dehydrogenase Blood Type Antibody Screen Direct Antiglob Test SLIM, Poly Interpret Crossmatch
--- NOTE | 2020-03-26 19:26 | Hem/Onc Progress Note ---
Subjective Interval history: heme consult for pancytopenia, requested by Dr. 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 says he feels sl less dizzy after last night's transfusions] did not increase RBC or plt with transfusion daren neg, LDH low PMH: HCV (treated?) imaging from past few years shows normal-appearing liver and spleen Soc: smoker, h/o alcohol dependence several years ago, per notes EXAM: NAD looks better than his numbers would suggest DATA REVIEWED BELOW IMPRESSION: severe anemia out of proportion to clinical appearance chronic iron deficiency anemia, maybe due to chronic bleeding not sure whether he has acute bleeding or not he could have "[id number]" syndrome 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 (24.2-36.6) L 03/24/20 15:18 Lactate Dehydrogenase 195 units/L (91-180) H 03/26/20 06:59 Albumin 4.2 g/dL (3.9-5) 03/24/20 13:33 Albumin/Globulin Ratio 1.8 % 03/24/20 13:33 Antibody Screen Negative 03/24/20 15:19 Direct Antiglob Test Negative 03/25/20 00:40 SLIM, Poly Interpret Negative 03/25/20 00:40 Crossmatch See Detail 03/24/20 15:19 Objective - Constitutional Vitals: Last Vital Signs Temp 98.2 F 03/26/20 16:23 Pulse 100 H 03/26/20 16:23 Resp 18 03/26/20 16:23 BP 116/55 03/26/20 16:23 Pulse Ox 100 03/26/20 16:23 - Labs Lab Results: Laboratory Results - last 24 hr 03/24/20 03/25/20 03/26/20 15:19 00:40 06:59 WBC RBC Hgb Hct MCV MCH MCHC RDW Plt Count Add Manual Diff Total Counted Seg Neuts % (Manual) Lymphocytes % (Manual) Monocytes % (Manual) Eosinophils % (Manual) Nucleated RBC % Seg Neutrophils # Man Band Neutrophils # Lymphocytes # (Manual) Abs React Lymphs (Man) Monocytes # (Manual) Eosinophils # (Manual) Basophils # (Manual) Metamyelocytes # Myelocytes # Promyelocytes # Blast Cells # WBC Morphology Hypersegmented Neuts Hyposegmented Neuts Hypogranular Neuts Smudge Cells Toxic Granulation Toxic Vacuolation Dohle Bodies Pelger-Huet Anomaly Katia Rods Platelet Estimate Clumped Platelets Plt Clumps, EDTA Large Platelets Giant Platelets Platelet Satelliting Plt Morphology Comment RBC Morphology Dimorphic RBCs Polychromasia Hypochromasia Poikilocytosis Anisocytosis Microcytosis Macrocytosis Spherocytes Pappenheimer Bodies Sickle Cells Target Cells Tear Drop Cells Ovalocytes Helmet Cells [place] Bodies [place] Rings [place] Cells Bite Cells Crenated Cell Elliptocytes Acanthocytes (Spur) Rouleaux Hemoglobin C Crystals Schistocytes Malaria parasites Jl Bodies Hem Pathologist Commnt Sodium 141 Potassium 4.1 Chloride 107.9 H Carbon Dioxide 28 Anion Gap 9 BUN 14 Creatinine 0.6 L Estimated GFR > 60 BUN/Creatinine Ratio 23 Glucose 78 Calcium 8.1 L Lactate Dehydrogenase 195 H Blood Type A POSITIVE Antibody Screen Negative Direct Antiglob Test Negative SLIM, Poly Interpret Negative Crossmatch See Detail 03/26/20 03/26/20 06:59 09:56 WBC 5.6 RBC 2.44 L Hgb 6.4 L 6.3 L Hct 19.6 L* 19.0 L* MCV 80 L MCH 26 L MCHC 33 RDW 24.6 H Plt Count 13 L* 14 L* Add Manual Diff Complete Total Counted 100 Seg Neuts % (Manual) 90.0 H Lymphocytes % (Manual) 5.0 L Monocytes % (Manual) 3.0 Eosinophils % (Manual) 2.0 Nucleated RBC % Not Reportable Seg Neutrophils # Man 5.0 Band Neutrophils # 0.0 Lymphocytes # (Manual) 0.3 L Abs React Lymphs (Man) 0.0 Monocytes # (Manual) 0.2 Eosinophils # (Manual) 0.1 Basophils # (Manual) 0.0 Metamyelocytes # 0.0 Myelocytes # 0.0 Promyelocytes # 0.0 Blast Cells # 0.0 WBC Morphology Not Reportable Hypersegmented Neuts Not Reportable Hyposegmented Neuts Not Reportable Hypogranular Neuts Not Reportable Smudge Cells Not Reportable Toxic Granulation Not Reportable Toxic Vacuolation Not Reportable Dohle Bodies Not Reportable Pelger-Huet Anomaly Not Reportable Katia Rods Not Reportable Platelet Estimate Appears decreased Clumped Platelets Not Reportable Plt Clumps, EDTA Not Reportable Large Platelets Not Reportable Giant Platelets Not Reportable Platelet Satelliting Not Reportable Plt Morphology Comment Not Reportable RBC Morphology Not Reportable Dimorphic RBCs Not Reportable Polychromasia Not Reportable Hypochromasia 1+ Poikilocytosis 1+ Anisocytosis 2+ Microcytosis Not Reportable Macrocytosis Not Reportable Spherocytes Not Reportable Pappenheimer Bodies Not Reportable Sickle Cells Not Reportable Target Cells Not Reportable Tear Drop Cells Not Reportable Ovalocytes Few Helmet Cells Not Reportable [place] Bodies Not Reportable [place] Rings Not Reportable [place] Cells Not Reportable Bite Cells Not Reportable Crenated Cell Not Reportable Elliptocytes Few Acanthocytes (Spur) Not Reportable Rouleaux Not Reportable Hemoglobin C Crystals Not Reportable Schistocytes Not Reportable Malaria parasites Not Reportable Jl Bodies Not Reportable Hem Pathologist Commnt No Sodium Potassium Chloride Carbon Dioxide Anion Gap BUN Creatinine Estimated GFR BUN/Creatinine Ratio Glucose Calcium Lactate Dehydrogenase Blood Type Antibody Screen Direct Antiglob Test SLIM, Poly Interpret Crossmatch Medications & Allergies - Medications Allergies/Adverse Reactions: Allergies No Known Allergies Allergy (Verified 08/27/17 07:25) Home Medications: Home Medications Medication Instructions Recorded Confirmed Last Taken Type Folic Acid [Folvite] 1 mg PO QDAY 30 Days #30 tablet 02/17/19 03/24/20 03/23/20 Rx Ferrous Sulfate [Feosol 325 MG tab] 325 mg PO BID #60 tablet 09/08/19 03/24/20 03/23/20 Rx Pantoprazole [Protonix TAB] 40 mg PO BID 60 Days #30 tablet 09/08/19 03/24/20 Unknown Rx Acetaminophen [Acetaminophen TAB] 1,000 mg PO Q6HR PRN #30 tablet 02/07/20 03/23/20 Rx Active Medications: Generic Name Dose Route Start Last Admin Trade Name Freq PRN Reason Stop Dose Admin Acetaminophen 650 mg 03/26/20 11:00 Acetaminophen 325 Mg Tab PO Q4H PRN Pain, Mild (1-3) Diphenhydramine HCl 25 mg 03/26/20 11:00 Diphenhydramine 50 Mg/Ml Vial IV Q6H PRN Rash Ferrous Sulfate 325 mg 03/24/20 23:00 03/26/20 10:16 Ferrous Sulfate 325 Mg Tab PO 325 mg BID LUCIAN Administration Folic Acid 1 mg 03/25/20 10:00 03/26/20 10:16 Folic Acid 1 Mg Tab PO 1 mg QDAY LUCIAN Administration Pantoprazole Sodium 80 mg/ 100 mls @ 10 mls/hr 03/24/20 23:00 03/26/20 00:01 Sodium Chloride IV 8 mg/hr DIRECT LUCIAN 10 mls/hr Administration 8 MG/HR Sodium Chloride 1,000 mls @ 50 mls/hr 03/26/20 08:15 03/26/20 10:45 Nacl 0.9% 1000 Ml IV 50 mls/hr DIRECT LUCIAN Administration
[2020-03-26] MEDS: ACETAMINOPHEN 325 MG TAB PO PRN (22:26)
[2020-03-27] MEDS: PANTOPRAZOLE 80 MG in SODIUM CHLORIDE 0.9% 100 ML IV SCH (00:46)
[2020-03-27] MEDS: ACETAMINOPHEN 325 MG TAB PO PRN ×2 (04:45→21:18)
[2020-03-27] MEDS ORDERED: SODIUM CHLORIDE 0.9% 500 ML 500 ML IV NR (07:34)
--- NOTE | 2020-03-27 07:48 | Progress Note ---
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 especially: Patient had a colonoscopy and upper endoscopy in 2018 Major GI consult Transfuse 3 to 4 units of packed red blood cells Patient to be transfused 1 more unit of packed red blood cells today because of the drop of hemoglobin (3) Anemia requiring transfusions Current Visit: Yes Status: Acute Plan to address problem: Transfuse 3 to 4 units of packed red blood cells GI consult (4) Lower GI bleed Current Visit: Yes Status: Acute Plan to address problem: Secondary to AVMs GI consult requested (5) T2DM (type 2 diabetes mellitus) Current Visit: Yes Status: Chronic 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 Patient presented to the ER complaining of left hip pain, generalized weakness, chills and difficulty walking because of the left hip pain. Patient denied any recent injury. Patient denied any chest pain or shortness of breath or cough. Patient also denied any hematemesis, hematochezia, melena, hemoptysis or hematuria. Patient has the left hip pain for a while but did not follow-up with the doctor. 03/25/2020 GI consult appreciated Patient is thrombocytopenic Hematology consult requested Hemoglobin improved to 7.5 03/26/2020 Hemoglobin again dropped to 6.4 Platelet count also dropped to about 14,000 Objective - Constitutional Vitals: Vital Signs - 12hr 03/26/20 03/26/20 03/27/20 20:04 23:35 04:25 Temperature 99.1 F 99.3 F 98.5 F Pulse Rate 97 H 107 H Respiratory 16 16 16 Rate Blood Pressure 110/56 102/45 98/48 O2 Sat by Pulse 100 100 Oximetry General appearance: Present: no acute distress, well-nourished - EENT Eyes: PERRL, EOM intact ENT: hearing intact, clear oral mucosa Ears: bilateral: normal - Neck Neck: supple, normal ROM - Respiratory Respiratory effort: normal Respiratory: bilateral: CTA - Breasts Breasts: normal - Cardiovascular Heart rate: 78 Rhythm: regular Heart Sounds: Present: S1 & S2. Absent: gallop, rub Extremities: pulses intact, No edema, normal color, Full ROM - Gastrointestinal General gastrointestinal: Present: soft, non-tender, non-distended, normal bowel sounds - Genitourinary Male genitourinary: normal - Integumentary Integumentary: clear, warm, dry - Musculoskeletal Musculoskeletal: 1, strength equal bilaterally - Neurologic Neurologic: moves all extremities - Psychiatric Psychiatric: memory intact, appropriate mood/affect, intact judgment & insight - Labs CBC & Chem 7: 03/26/20 09:56 03/26/20 06:59 Labs: Abnormal lab results 03/24/20 03/26/20 03/26/20 Range/Units 15:19 06:59 06:59 RBC 2.44 L (3.65-5.03) M/mm3 Hgb 6.4 L (11.8-15.2) gm/dl Hct 19.6 L* (35.5-45.6) % MCV 80 L (84-94) fl MCH 26 L (28-32) pg RDW 24.6 H (13.2-15.2) % Plt Count 13 L* (140-440) K/mm3 Seg Neuts % (Manual) 90.0 H (40.0-70.0) % Lymphocytes % (Manual) 5.0 L (13.4-35.0) % Lymphocytes # (Manual) 0.3 L (1.2-5.4) K/mm3 Chloride 107.9 H (98-107) mmol/L Creatinine 0.6 L (0.8-1.3) mg/dL Calcium 8.1 L (8.4-10.2) mg/dL Lactate Dehydrogenase 195 H (91-180) units/L Crossmatch See Detail 03/26/20 Range/Units 09:56 RBC (3.65-5.03) M/mm3 Hgb 6.3 L (11.8-15.2) gm/dl Hct 19.0 L* (35.5-45.6) % MCV (84-94) fl MCH (28-32) pg RDW (13.2-15.2) % Plt Count 14 L* (140-440) K/mm3 Seg Neuts % (Manual) (40.0-70.0) % Lymphocytes % (Manual) (13.4-35.0) % Lymphocytes # (Manual) (1.2-5.4) K/mm3 Chloride (98-107) mmol/L Creatinine (0.8-1.3) mg/dL Calcium (8.4-10.2) mg/dL Lactate Dehydrogenase (91-180) units/L Crossmatch HEART Score - HEART Score Troponin: Troponin T < 0.010 ng/mL (0.00-0.029) 03/24/20 13:33
[2020-03-27] MEDS: FERROUS SULFATE 325 MG TAB PO SCH ×2 (09:44→21:19)
[2020-03-27] MEDS: FOLIC ACID 1 MG TAB PO SCH (09:44)
[2020-03-27] MEDS: PANTOPRAZOLE 40 MG TAB PO SCH (09:44)
--- NOTE | 2020-03-27 10:32 | Progress Note ---
Assessment and Plan Assessment and plan: 64 years old male with history of diabetes and chronic anemia with multiple blood transfusions and colonoscopies and endoscopies before. 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 "Jeqqj-Ccwff-Vgeqz/HHT" syndrome, ? ITP Lower GI bleed Secondary to AVMs GI following T2DM (type 2 diabetes mellitus) Coverage for now Check hemoglobin A1c DVT prophylaxis 03/25/2020 GI consult appreciated Patient is thrombocytopenic Hematology consult requested Hemoglobin improved to 7.5 03/26/2020 Hemoglobin again dropped to 6.4 Platelet count also dropped to about 14,000 03/27. Cont. IVIG for therombocytopenia. PRBCs as needed. Endoscopy when plt > 50. F/U electrophoresis and SPEP History Interval history: No new issues Hospitalist Physical - Constitutional Vitals: Temp Pulse Resp BP Pulse Ox 97.9 F 98 H 16 107/48 99 03/27/20 08:40 03/27/20 08:40 03/27/20 08:40 03/27/20 08:40 03/27/20 08:40 General appearance: Present: no acute distress, well-nourished - EENT Eyes: Present: PERRL, EOM intact ENT: hearing intact, clear oral mucosa, dentition normal - Neck Neck: Present: supple, normal ROM - Respiratory Respiratory effort: normal Respiratory: bilateral: CTA - Cardiovascular Rhythm: regular Heart Sounds: Present: S1 & S2. Absent: gallop, rub - Extremities Extremities: no ischemia, No edema, Full ROM - Abdominal General gastrointestinal: soft, non-tender, non-distended, normal bowel sounds - Integumentary Integumentary: Present: clear, warm, dry - Neurologic Neurologic: CNII-XII intact, moves all extremities HEART Score - HEART Score Troponin: Troponin T < 0.010 ng/mL (0.00-0.029) 03/24/20 13:33 Results - Labs CBC & Chem 7: 03/26/20 09:56 03/26/20 06:59 Labs: Laboratory Last Values WBC 5.6 K/mm3 (4.5-11.0) 03/26/20 06:59 RBC 2.44 M/mm3 (3.65-5.03) L 03/26/20 06:59 Hgb 6.3 gm/dl (11.8-15.2) L 03/26/20 09:56 Hct 19.0 % (35.5-45.6) L* 03/26/20 09:56 MCV 80 fl (84-94) L 03/26/20 06:59 MCH 26 pg (28-32) L 03/26/20 06:59 MCHC 33 % (32-34) 03/26/20 06:59 RDW 24.6 % (13.2-15.2) H 03/26/20 06:59 Plt Count 14 K/mm3 (140-440) L* 03/26/20 09:56 Add Manual Diff Complete 03/26/20 06:59 Total Counted 100 03/26/20 06:59 Seg Neuts % (Manual) 90.0 % (40.0-70.0) H 03/26/20 06:59 Lymphocytes % (Manual) 5.0 % (13.4-35.0) L 03/26/20 06:59 Monocytes % (Manual) 3.0 % (0.0-7.3) 03/26/20 06:59 Eosinophils % (Manual) 2.0 % (0.0-4.3) 03/26/20 06:59 Metamyelocytes % 4.0 % 03/25/20 08:38 Nucleated RBC % Not Reportable 03/26/20 06:59 Seg Neutrophils # Man 5.0 K/mm3 (1.8-7.7) 03/26/20 06:59 Band Neutrophils # 0.0 K/mm3 03/26/20 06:59 Lymphocytes # (Manual) 0.3 K/mm3 (1.2-5.4) L 03/26/20 06:59 Abs React Lymphs (Man) 0.0 K/mm3 03/26/20 06:59 Monocytes # (Manual) 0.2 K/mm3 (0.0-0.8) 03/26/20 06:59 Eosinophils # (Manual) 0.1 K/mm3 (0.0-0.4) 03/26/20 06:59 Basophils # (Manual) 0.0 K/mm3 (0.0-0.1) 03/26/20 06:59 Metamyelocytes # 0.0 K/mm3 03/26/20 06:59 Myelocytes # 0.0 K/mm3 03/26/20 06:59 Promyelocytes # 0.0 K/mm3 03/26/20 06:59 Blast Cells # 0.0 K/mm3 03/26/20 06:59 WBC Morphology Not Reportable 03/26/20 06:59 Hypersegmented Neuts Not Reportable 03/26/20 06:59 Hyposegmented Neuts Not Reportable 03/26/20 06:59 Hypogranular Neuts Not Reportable 03/26/20 06:59 Smudge Cells Not Reportable 03/26/20 06:59 Toxic Granulation Not Reportable 03/26/20 06:59 Toxic Vacuolation Not Reportable 03/26/20 06:59 Dohle Bodies Not Reportable 03/26/20 06:59 Pelger-Huet Anomaly Not Reportable 03/26/20 06:59 Katia Rods Not Reportable 03/26/20 06:59 Platelet Estimate Appears decreased 03/26/20 06:59 Clumped Platelets Not Reportable 03/26/20 06:59 Plt Clumps, EDTA Not Reportable 03/26/20 06:59 Large Platelets Not Reportable 03/26/20 06:59 Giant Platelets Not Reportable 03/26/20 06:59 Platelet Satelliting Not Reportable 03/26/20 06:59 Plt Morphology Comment Not Reportable 03/26/20 06:59 RBC Morphology Not Reportable 03/26/20 06:59 Dimorphic RBCs Not Reportable 03/26/20 06:59 Polychromasia Not Reportable 03/26/20 06:59 Hypochromasia 1+ 03/26/20 06:59 Poikilocytosis 1+ 03/26/20 06:59 Anisocytosis 2+ 03/26/20 06:59 Microcytosis Not Reportable 03/26/20 06:59 Macrocytosis Not Reportable 03/26/20 06:59 Spherocytes Not Reportable 03/26/20 06:59 Pappenheimer Bodies Not Reportable 03/26/20 06:59 Sickle Cells Not Reportable 03/26/20 06:59 Target Cells Not Reportable 03/26/20 06:59 Tear Drop Cells Not Reportable 03/26/20 06:59 Ovalocytes Few 03/26/20 06:59 Helmet Cells Not Reportable 03/26/20 06:59 Suarez-Re[place] Bodies Not Reportable 03/26/20 06:59 [place] Rings Not Reportable 03/26/20 06:59 Lula Cells Not Reportable 03/26/20 06:59 Bite Cells Not Reportable 03/26/20 06:59 Crenated Cell Not Reportable 03/26/20 06:59 Elliptocytes Few 03/26/20 06:59 Acanthocytes (Spur) Not Reportable 03/26/20 06:59 Rouleaux Not Reportable 03/26/20 06:59 Hemoglobin C Crystals Not Reportable 03/26/20 06:59 Schistocytes Not Reportable 03/26/20 06:59 Malaria parasites Not Reportable 03/26/20 06:59 Jl Bodies Not Reportable 03/26/20 06:59 Hem Pathologist Commnt No 03/26/20 06:59 PT 13.9 Sec. (12.2-14.9) 03/24/20 15:18 INR 1.09 (0.87-1.13) 03/24/20 15:18 APTT 23.6 Sec. (24.2-36.6) L 03/24/20 15:18 Sodium 141 mmol/L (137-145) 03/26/20 06:59 Potassium 4.1 mmol/L (3.6-5.0) 03/26/20 06:59 Chloride 107.9 mmol/L (98-107) H 03/26/20 06:59 Carbon Dioxide 28 mmol/L (22-30) 03/26/20 06:59 Anion Gap 9 mmol/L 03/26/20 06:59 BUN 14 mg/dL (9-20) 03/26/20 06:59 Creatinine 0.6 mg/dL (0.8-1.3) L 03/26/20 06:59 Estimated GFR > 60 ml/min 03/26/20 06:59 BUN/Creatinine Ratio 23 % 03/26/20 06:59 Glucose 78 mg/dL (75-100) 03/26/20 06:59 Calcium 8.1 mg/dL (8.4-10.2) L 03/26/20 06:59 Total Bilirubin 0.60 mg/dL (0.1-1.2) 03/24/20 13:33 AST 18 units/L (5-40) 03/24/20 13:33 ALT 11 units/L (7-56) 03/24/20 13:33 Alkaline Phosphatase 59 units/L (35-129) 03/24/20 13:33 Lactate Dehydrogenase 195 units/L (91-180) H 03/26/20 06:59 Troponin T < 0.010 ng/mL (0.00-0.029) 03/24/20 13:33 Total Protein 6.6 g/dL (6.3-8.2) 03/24/20 13:33 Albumin 4.2 g/dL (3.9-5) 03/24/20 13:33 Albumin/Globulin Ratio 1.8 % 03/24/20 13:33 Urine Color Yellow (Yellow) 03/24/20 14:23 Urine Turbidity Clear (Clear) 03/24/20 14:23 Urine pH 5.0 (5.0-7.0) 03/24/20 14:23 Ur Specific [place] 1.013 (1.003-1.030) 03/24/20 14:23 Urine Protein <15 mg/dl mg/dL (Negative) 03/24/20 14:23 Urine Glucose (UA) Neg mg/dL (Negative) 03/24/20 14:23 Urine Ketones Neg mg/dL (Negative) 03/24/20 14:23 Urine Blood Neg (Negative) 03/24/20 14:23 Urine Nitrite Neg (Negative) 03/24/20 14:23 Urine Bilirubin Neg (Negative) 03/24/20 14:23 Urine Urobilinogen 4.0 mg/dL (<2.0) 03/24/20 14:23 Ur Leukocyte Esterase Neg (Negative) 03/24/20 14:23 Urine WBC (Auto) 2.0 /HPF (0.0-6.0) 03/24/20 14:23 Urine RBC (Auto) 1.0 /HPF (0.0-6.0) 03/24/20 14:23 Urine Mucus Few /HPF 03/24/20 14:23 Nasal Screen MRSA (PCR) Negative (Negative) 03/25/20 09:01 Blood Type A POSITIVE 03/24/20 15:19 Antibody Screen Negative 03/24/20 15:19 Direct Antiglob Test Negative 03/25/20 00:40 SLIM, Poly Interpret Negative 03/25/20 00:40 Crossmatch See Detail 03/24/20 15:19 Parker/IV: Voiding Method Urinal IV Catheter Type [Right Hand] right EJ Active Medications - Current Medications Current Medications: Generic Name Dose Route Start Last Admin Trade Name Freq PRN Reason Stop Dose Admin Acetaminophen 650 mg 03/26/20 11:00 03/27/20 04:45 Acetaminophen 325 Mg Tab PO 650 mg Q4H PRN Administration Pain, Mild (1-3) Diphenhydramine HCl 25 mg 03/26/20 11:00 Diphenhydramine 50 Mg/Ml Vial IV Q6H PRN Rash Ferrous Sulfate 325 mg 03/24/20 23:00 03/27/20 09:44 Ferrous Sulfate 325 Mg Tab PO 325 mg BID LUCIAN Administration Folic Acid 1 mg 03/25/20 10:00 03/27/20 09:44 Folic Acid 1 Mg Tab PO 1 mg QDAY LUCIAN Administration Sodium Chloride 1,000 mls @ 50 mls/hr 03/26/20 08:15 03/26/20 10:45 Nacl 0.9% 1000 Ml IV 50 mls/hr DIRECT LUCIAN Administration Sodium Chloride 500 mls @ 0 mls/hr 03/27/20 07:34 Nacl 0.9% 500 Ml IV 03/28/20 07:33 ONCE NR As Directed Pantoprazole Sodium 40 mg 03/27/20 07:30 03/27/20 09:44 Pantoprazole 40 Mg Tab PO 40 mg QDAC LUCIAN Administration Nutrition/Malnutrition Assess - Dietary Evaluation Nutrition/Malnutrition Findings: Nutrition Notes Start: 03/26/20 13:21 Freq: Status: Active Protocol: Document 03/26/20 13:21 (Rec: 03/26/20 13:24 [id number]) Nutrition Notes Need for Assessment generated from: Low BMI Initial or Follow up Brief Note Current Diagnosis Diabetes Other Pertinent Diagnosis lower GIB, anemia Current Diet NPO Subjective/Other Information Screen for low BMI. Pt reports always being smaller and no recent weight loss. Pt has no appetite changes and is feeling hungry. Pt does not appear malnurished. Nutrition Intervention Revisit per MD consult or patient Sign Off request:
[2020-03-27] MEDS: SODIUM CHLORIDE 0.9% 1000 ML 1,000 ML IV SCH (12:25)
--- NOTE | 2020-03-27 13:08 | Gastroenterology Progress Note ---
Assessment and Plan GI: no further signs bleeding - still w/ low platelets, Heme input noted - follow h/h, transfuse as needed to keep Hgb >7 - PPI qd - EGD/colon when platelets improved (>50) - will follow Subjective Date of service: 03/27/20 Principal diagnosis: Symptomatic anemia, chronic GI bleed Interval history: - no signs bleeding overnight Objective - Constitutional Vitals: Temp Pulse Resp BP Pulse Ox 97.9 F 98 H 16 107/48 99 03/27/20 08:40 03/27/20 08:40 03/27/20 08:40 03/27/20 08:40 03/27/20 08:40 General appearance: no acute distress - EENT Eyes: PERRL - Respiratory Respiratory: bilateral: CTA - Cardiovascular Rhythm: regular Heart Sounds: Present: S1 & S2 - Gastrointestinal General gastrointestinal: Present: soft, non-tender, non-distended - Labs CBC & Chem 7: 03/26/20 09:56 03/26/20 06:59 Labs: Laboratory Results - last 24 hr 03/24/20 15:19 Blood Type A POSITIVE Antibody Screen Negative Crossmatch See Detail
[2020-03-27 13:25] LABS: Mean Corpuscular HGB Conc 31 % (32-34); Mean Corpuscular Volume 82 fl (84-94); Red Blood Count 1.75 M/mm3 (3.65-5.03)
[2020-03-27 13:29] LABS: Hemoglobin 4.5 gm/dl (11.8-15.2)
[2020-03-27 13:30] LABS: Hematocrit 14.3 % (35.5-45.6); Red Cell Distribution Width 24.9 % (13.2-15.2)
[2020-03-27 14:42] LABS: Platelet Count 21 K/mm3 (140-440)
[2020-03-27] MEDS ORDERED: [UNRECOGNIZED DRUG - OTHER] IV ONE (15:00)
[2020-03-27] MEDS ORDERED: IMMUNE GLOBULIN IV ONE (15:00)
[2020-03-27] MEDS: methylPREDNISolone Sod Succinate 125 MG/2 ML INJ IV SCH (15:12)
[2020-03-27] MEDS ORDERED: IMMUNE GLOBULIN G/GLY/IGA AVG 46 20 GM/200 ML VIAL IV ONE (15:30)
[2020-03-27] MEDS ORDERED: GLY IV SCH ×2 (16:00)
[2020-03-27] MEDS ORDERED: IMMUNE GLOBUL IV SCH ×2 (16:00)
[2020-03-27] MEDS ORDERED: IGA AVG IV SCH ×2 (16:00)
[2020-03-27] MEDS ORDERED: SODIUM CHLORIDE 0.9% 500 ML 500 ML IV SCH (17:34)
[2020-03-27 20:45] LABS: Hemoglobin 6.3 gm/dl (11.8-15.2); Mean Corpuscular HGB Conc 32 % (32-34); Mean Corpuscular Volume 84 fl (84-94); Red Blood Count 2.34 M/mm3 (3.65-5.03)
[2020-03-27 20:57] LABS: Platelet Count 24 K/mm3 (140-440)
[2020-03-27 20:59] LABS: Hematocrit 19.5 % (35.5-45.6); Red Cell Distribution Width 21.7 % (13.2-15.2)
--- NOTE | 2020-03-28 02:10 | Hem/Onc Progress Note ---
Subjective Interval history: heme f/u televisit by som 64yo man with h/o AVM, chronic iron deficiency, several hospitalizations during the past 6 years for severe anemia, usually with very low plt count 20's, refractory to plt transfusions-->sometimes very high plt count 1.5M Now eval for severe anemia and low plt count 20's and severe anemia no overt bleeding while in hospital says he does not feel dizzy c/o L hip pain EXAM: NAD looks better than his numbers would suggest DATA REVIEWED BELOW IMPRESSION: severe anemia out of proportion to clinical appearance transfusion refractory--looking like AIHA even though daren neg 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 RECOMMEND: 2nd dose of IVIG; consider Nplate RBC transfusion, steroid pulse GI eval underway-->goal plt >50 for procedures bone marrow biopsy may be needed if counts stay low will try for outpt televisit hematology f/u after discharge Laboratory Last Values WBC 3.5 K/mm3 (4.5-11.0) L 03/27/20 20:10 Hgb 6.3 gm/dl (11.8-15.2) L 03/27/20 20:10 Hct 19.5 % (35.5-45.6) L* 03/27/20 20:10 Plt Count 24 K/mm3 (140-440) L 03/27/20 20:10 Crossmatch See Detail 03/27/20 20:00 Objective - Constitutional Vitals: Last Vital Signs Temp 98.4 F 03/28/20 01:55 Pulse 95 H 03/28/20 01:55 Resp 18 03/28/20 01:55 BP 148/70 03/28/20 01:55 Pulse Ox 100 03/28/20 01:55 - Labs Lab Results: Laboratory Results - last 24 hr 03/24/20 03/27/20 03/27/20 15:19 13:00 20:00 WBC 2.8 L RBC 1.75 L Hgb 4.5 L* Hct 14.3 L* MCV 82 L MCH 26 L MCHC 31 L RDW 24.9 H Plt Count 21 L Blood Type A POSITIVE A POSITIVE Antibody Screen Negative Negative Crossmatch See Detail See Detail 03/27/20 20:10 WBC 3.5 L RBC 2.34 L Hgb 6.3 L Hct 19.5 L* MCV 84 MCH 27 L MCHC 32 RDW 21.7 H Plt Count 24 L Blood Type Antibody Screen Crossmatch Medications & Allergies - Medications Allergies/Adverse Reactions: Allergies No Known Allergies Allergy (Verified 08/27/17 07:25) Home Medications: Home Medications Medication Instructions Recorded Confirmed Last Taken Type Folic Acid [Folvite] 1 mg PO QDAY 30 Days #30 tablet 02/17/19 03/24/20 03/23/20 Rx Ferrous Sulfate [Feosol 325 MG tab] 325 mg PO BID #60 tablet 09/08/19 03/24/20 03/23/20 Rx Pantoprazole [Protonix TAB] 40 mg PO BID 60 Days #30 tablet 09/08/19 03/24/20 Unknown Rx Acetaminophen [Acetaminophen TAB] 1,000 mg PO Q6HR PRN #30 tablet 02/07/20 03/23/20 Rx Active Medications: Generic Name Dose Route Start Last Admin Trade Name Freq PRN Reason Stop Dose Admin Acetaminophen 650 mg 03/26/20 11:00 03/27/20 21:18 Acetaminophen 325 Mg Tab PO 650 mg Q4H PRN Administration Pain, Mild (1-3) Diphenhydramine HCl 25 mg 03/26/20 11:00 03/27/20 21:18 Diphenhydramine 50 Mg/Ml Vial IV 25 mg Q6H PRN Administration Rash Ferrous Sulfate 325 mg 03/24/20 23:00 03/27/20 21:19 Ferrous Sulfate 325 Mg Tab PO 325 mg BID LUCIAN Administration Folic Acid 1 mg 03/25/20 10:00 03/27/20 09:44 Folic Acid 1 Mg Tab PO 1 mg QDAY LUCIAN Administration Sodium Chloride 1,000 mls @ 50 mls/hr 03/26/20 08:15 03/27/20 12:25 Nacl 0.9% 1000 Ml IV 50 mls/hr DIRECT LUCIAN Administration Sodium Chloride 500 mls @ 0 mls/hr 03/27/20 07:34 Nacl 0.9% 500 Ml IV 03/28/20 07:33 ONCE NR As Directed IMMUNE GLOBUL G/GLY/IGA AVG 46 200 mls @ 400 mls/hr 03/27/20 16:00 03/27/20 22:51 20 gm/ Miscellaneous IV 400 mls/hr Information ONCE LUCIAN Administration Sodium Chloride 500 mls @ 0 mls/hr 03/27/20 17:34 Nacl 0.9% 500 Ml IV ONCE LUCIAN As Directed Methylprednisolone Sodium Succinate 60 mg 03/27/20 15:00 03/27/20 15:12 Methylprednisolone Sod Succinate 125 Mg/2 Ml Inj IV 60 mg Q12H LUCIAN Administration Pantoprazole Sodium 40 mg 03/27/20 07:30 03/27/20 09:44 Pantoprazole 40 Mg Tab PO 40 mg QDAC LUCIAN Administration
[2020-03-28] MEDS: methylPREDNISolone Sod Succinate 125 MG/2 ML INJ IV SCH ×2 (05:24→14:02)
[2020-03-28 07:51] LABS: Hematocrit 21.8 % (35.5-45.6); Hemoglobin 7.4 gm/dl (11.8-15.2)
[2020-03-28] MEDS: FERROUS SULFATE 325 MG TAB PO SCH ×2 (10:10→20:59)
[2020-03-28] MEDS: FOLIC ACID 1 MG TAB PO SCH (10:10)
[2020-03-28] MEDS: PANTOPRAZOLE 40 MG TAB PO SCH (10:10)
--- NOTE | 2020-03-28 10:13 | Progress Note ---
Assessment and Plan Assessment and plan: 64 years old male with history of diabetes and chronic anemia with multiple blood transfusions and colonoscopies and endoscopies before. 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 "[id number]-Oextm/HHT" syndrome, ? ITP Lower GI bleed Secondary to AVMs GI following T2DM (type 2 diabetes mellitus) Coverage for now Check hemoglobin A1c DVT prophylaxis 03/25/2020 GI consult appreciated Patient is thrombocytopenic Hematology consult requested Hemoglobin improved to 7.5 03/26/2020 Hemoglobin again dropped to 6.4 Platelet count also dropped to about 14,000 03/27. Cont. IVIG for therombocytopenia. PRBCs as needed. Endoscopy when plt > 50. F/U electrophoresis and SPEP 03/28. Continue IVIG and pulse steroids per hematology recommendations. Probable autoimmune hemolytic anemia/ITP. GI evaluation when platelets greater than 50,000. Bone marrow biopsy per hematology. History Interval history: No new issues Hospitalist Physical - Constitutional Vitals: Temp Pulse Resp BP Pulse Ox 98.6 F 78 20 167/84 100 03/28/20 05:09 03/28/20 05:09 03/28/20 05:09 03/28/20 05:09 03/28/20 05:09 General appearance: Present: no acute distress, well-nourished - EENT Eyes: Present: PERRL, EOM intact ENT: hearing intact, clear oral mucosa, dentition normal - Neck Neck: Present: supple, normal ROM - Respiratory Respiratory effort: normal Respiratory: bilateral: CTA - Cardiovascular Rhythm: regular Heart Sounds: Present: S1 & S2. Absent: gallop, rub - Extremities Extremities: no ischemia, No edema, Full ROM - Abdominal General gastrointestinal: soft, non-tender, non-distended, normal bowel sounds - Integumentary Integumentary: Present: clear, warm, dry - Neurologic Neurologic: CNII-XII intact, moves all extremities HEART Score - HEART Score Troponin: Troponin T < 0.010 ng/mL (0.00-0.029) 03/24/20 13:33 Results - Labs CBC & Chem 7: 03/28/20 07:41 03/26/20 06:59 Labs: Laboratory Last Values WBC 3.5 K/mm3 (4.5-11.0) L 03/27/20 20:10 RBC 2.34 M/mm3 (3.65-5.03) L 03/27/20 20:10 Hgb 7.4 gm/dl (11.8-15.2) L 03/28/20 07:41 Hct 21.8 % (35.5-45.6) L 03/28/20 07:41 MCV 84 fl (84-94) 03/27/20 20:10 MCH 27 pg (28-32) L 03/27/20 20:10 MCHC 32 % (32-34) 03/27/20 20:10 RDW 21.7 % (13.2-15.2) H 03/27/20 20:10 Plt Count 24 K/mm3 (140-440) L 03/27/20 20:10 Add Manual Diff Complete 03/26/20 06:59 Total Counted 100 03/26/20 06:59 Seg Neuts % (Manual) 90.0 % (40.0-70.0) H 03/26/20 06:59 Lymphocytes % (Manual) 5.0 % (13.4-35.0) L 03/26/20 06:59 Monocytes % (Manual) 3.0 % (0.0-7.3) 03/26/20 06:59 Eosinophils % (Manual) 2.0 % (0.0-4.3) 03/26/20 06:59 Metamyelocytes % 4.0 % 03/25/20 08:38 Nucleated RBC % Not Reportable 03/26/20 06:59 Seg Neutrophils # Man 5.0 K/mm3 (1.8-7.7) 03/26/20 06:59 Band Neutrophils # 0.0 K/mm3 03/26/20 06:59 Lymphocytes # (Manual) 0.3 K/mm3 (1.2-5.4) L 03/26/20 06:59 Abs React Lymphs (Man) 0.0 K/mm3 03/26/20 06:59 Monocytes # (Manual) 0.2 K/mm3 (0.0-0.8) 03/26/20 06:59 Eosinophils # (Manual) 0.1 K/mm3 (0.0-0.4) 03/26/20 06:59 Basophils # (Manual) 0.0 K/mm3 (0.0-0.1) 03/26/20 06:59 Metamyelocytes # 0.0 K/mm3 03/26/20 06:59 Myelocytes # 0.0 K/mm3 03/26/20 06:59 Promyelocytes # 0.0 K/mm3 03/26/20 06:59 Blast Cells # 0.0 K/mm3 03/26/20 06:59 WBC Morphology Not Reportable 03/26/20 06:59 Hypersegmented Neuts Not Reportable 03/26/20 06:59 Hyposegmented Neuts Not Reportable 03/26/20 06:59 Hypogranular Neuts Not Reportable 03/26/20 06:59 Smudge Cells Not Reportable 03/26/20 06:59 Toxic Granulation Not Reportable 03/26/20 06:59 Toxic Vacuolation Not Reportable 03/26/20 06:59 Dohle Bodies Not Reportable 03/26/20 06:59 Pelger-Huet Anomaly Not Reportable 03/26/20 06:59 Katia Rods Not Reportable 03/26/20 06:59 Platelet Estimate Appears decreased 03/26/20 06:59 Clumped Platelets Not Reportable 03/26/20 06:59 Plt Clumps, EDTA Not Reportable 03/26/20 06:59 Large Platelets Not Reportable 03/26/20 06:59 Giant Platelets Not Reportable 03/26/20 06:59 Platelet Satelliting Not Reportable 03/26/20 06:59 Plt Morphology Comment Not Reportable 03/26/20 06:59 RBC Morphology Not Reportable 03/26/20 06:59 Dimorphic RBCs Not Reportable 03/26/20 06:59 Polychromasia Not Reportable 03/26/20 06:59 Hypochromasia 1+ 03/26/20 06:59 Poikilocytosis 1+ 03/26/20 06:59 Anisocytosis 2+ 03/26/20 06:59 Microcytosis Not Reportable 03/26/20 06:59 Macrocytosis Not Reportable 03/26/20 06:59 Spherocytes Not Reportable 03/26/20 06:59 Pappenheimer Bodies Not Reportable 03/26/20 06:59 Sickle Cells Not Reportable 03/26/20 06:59 Target Cells Not Reportable 03/26/20 06:59 Tear Drop Cells Not Reportable 03/26/20 06:59 Ovalocytes Few 03/26/20 06:59 Helmet Cells Not Reportable 03/26/20 06:59 Suarez-Benbow Bodies Not Reportable 03/26/20 06:59 [place] Rings Not Reportable 03/26/20 06:59 [place] Cells Not Reportable 03/26/20 06:59 Bite Cells Not Reportable 03/26/20 06:59 Crenated Cell Not Reportable 03/26/20 06:59 Elliptocytes Few 03/26/20 06:59 Acanthocytes (Spur) Not Reportable 03/26/20 06:59 Rouleaux Not Reportable 03/26/20 06:59 Hemoglobin C Crystals Not Reportable 03/26/20 06:59 Schistocytes Not Reportable 03/26/20 06:59 Malaria parasites Not Reportable 03/26/20 06:59 Jl Bodies Not Reportable 03/26/20 06:59 Hem Pathologist Commnt No 03/26/20 06:59 PT 13.9 Sec. (12.2-14.9) 03/24/20 15:18 INR 1.09 (0.87-1.13) 03/24/20 15:18 APTT 23.6 Sec. (24.2-36.6) L 03/24/20 15:18 Sodium 141 mmol/L (137-145) 03/26/20 06:59 Potassium 4.1 mmol/L (3.6-5.0) 03/26/20 06:59 Chloride 107.9 mmol/L (98-107) H 03/26/20 06:59 Carbon Dioxide 28 mmol/L (22-30) 03/26/20 06:59 Anion Gap 9 mmol/L 03/26/20 06:59 BUN 14 mg/dL (9-20) 03/26/20 06:59 Creatinine 0.6 mg/dL (0.8-1.3) L 03/26/20 06:59 Estimated GFR > 60 ml/min 03/26/20 06:59 BUN/Creatinine Ratio 23 % 03/26/20 06:59 Glucose 78 mg/dL (75-100) 03/26/20 06:59 Calcium 8.1 mg/dL (8.4-10.2) L 03/26/20 06:59 Total Bilirubin 0.60 mg/dL (0.1-1.2) 03/24/20 13:33 AST 18 units/L (5-40) 03/24/20 13:33 ALT 11 units/L (7-56) 03/24/20 13:33 Alkaline Phosphatase 59 units/L (35-129) 03/24/20 13:33 Lactate Dehydrogenase 195 units/L (91-180) H 03/26/20 06:59 Troponin T < 0.010 ng/mL (0.00-0.029) 03/24/20 13:33 Total Protein 6.6 g/dL (6.3-8.2) 03/24/20 13:33 Albumin 4.2 g/dL (3.9-5) 03/24/20 13:33 Albumin/Globulin Ratio 1.8 % 03/24/20 13:33 Urine Color Yellow (Yellow) 03/24/20 14:23 Urine Turbidity Clear (Clear) 03/24/20 14:23 Urine pH 5.0 (5.0-7.0) 03/24/20 14:23 Ur Specific Funk 1.013 (1.003-1.030) 03/24/20 14:23 Urine Protein <15 mg/dl mg/dL (Negative) 03/24/20 14:23 Urine Glucose (UA) Neg mg/dL (Negative) 03/24/20 14:23 Urine Ketones Neg mg/dL (Negative) 03/24/20 14:23 Urine Blood Neg (Negative) 03/24/20 14:23 Urine Nitrite Neg (Negative) 03/24/20 14:23 Urine Bilirubin Neg (Negative) 03/24/20 14:23 Urine Urobilinogen 4.0 mg/dL (<2.0) 03/24/20 14:23 Ur Leukocyte Esterase Neg (Negative) 03/24/20 14:23 Urine WBC (Auto) 2.0 /HPF (0.0-6.0) 03/24/20 14:23 Urine RBC (Auto) 1.0 /HPF (0.0-6.0) 03/24/20 14:23 Urine Mucus Few /HPF 03/24/20 14:23 Nasal Screen MRSA (PCR) Negative (Negative) 03/25/20 09:01 Blood Type A POSITIVE 03/27/20 20:00 Antibody Screen Negative 03/27/20 20:00 Direct Antiglob Test Negative 03/25/20 00:40 SLIM, Poly Interpret Negative 03/25/20 00:40 Crossmatch See Detail 03/27/20 20:00 Parker/IV: Voiding Method Urinal IV Catheter Type [Left INT / Saline Lock Antecubital] IV Catheter Type [Left Forearm INT / Saline Lock ] IV Catheter Type [Right Hand] right EJ Active Medications - Current Medications Current Medications: Generic Name Dose Route Start Last Admin Trade Name Freq PRN Reason Stop Dose Admin Acetaminophen 650 mg 03/26/20 11:00 03/27/20 21:18 Acetaminophen 325 Mg Tab PO 650 mg Q4H PRN Administration Pain, Mild (1-3) Diphenhydramine HCl 25 mg 03/26/20 11:00 03/27/20 21:18 Diphenhydramine 50 Mg/Ml Vial IV 25 mg Q6H PRN Administration Rash Ferrous Sulfate 325 mg 03/24/20 23:00 03/28/20 10:10 Ferrous Sulfate 325 Mg Tab PO 325 mg BID LUCIAN Administration Folic Acid 1 mg 03/25/20 10:00 03/28/20 10:10 Folic Acid 1 Mg Tab PO 1 mg QDAY LUCIAN Administration Sodium Chloride 1,000 mls @ 50 mls/hr 03/26/20 08:15 03/27/20 12:25 Nacl 0.9% 1000 Ml IV 50 mls/hr DIRECT LUCIAN Administration Sodium Chloride 500 mls @ 0 mls/hr 03/27/20 17:34 Nacl 0.9% 500 Ml IV ONCE LUCIAN As Directed Methylprednisolone Sodium Succinate 60 mg 03/27/20 15:00 03/28/20 05:24 Methylprednisolone Sod Succinate 125 Mg/2 Ml Inj IV 60 mg Q12H LUCIAN Administration Pantoprazole Sodium 40 mg 03/27/20 07:30 03/28/20 10:10 Pantoprazole 40 Mg Tab PO 40 mg QDAC LUCIAN Administration Nutrition/Malnutrition Assess - Dietary Evaluation Nutrition/Malnutrition Findings: Nutrition Notes Start: 03/26/20 13:21 Freq: Status: Active Protocol: Document 03/26/20 13:21 WALKER (Rec: 03/26/20 13:24 [id number]) Nutrition Notes Need for Assessment generated from: Low BMI Initial or Follow up Brief Note Current Diagnosis Diabetes Other Pertinent Diagnosis lower GIB, anemia Current Diet NPO Subjective/Other Information Screen for low BMI. Pt reports always being smaller and no recent weight loss. Pt has no appetite changes and is feeling hungry. Pt does not appear malnurished. Nutrition Intervention Revisit per MD consult or patient Sign Off request:
--- NOTE | 2020-03-28 12:51 | Gastroenterology Progress Note ---
Assessment and Plan GI: h/h stable without further signs bleeding - awaiting increased platelets count to perform egd/colon - hopefully can be stable for scope on Thursday - follow h/h, transfuse as needed - - will follow Subjective Date of service: 03/28/20 Principal diagnosis: Symptomatic anemia, chronic GI bleed Interval history: - no GI complaints overnight. No signs bleeding Objective - Constitutional Vitals: Temp Pulse Resp BP Pulse Ox 98.6 F 77 20 167/84 100 03/28/20 05:09 03/28/20 10:00 03/28/20 05:09 03/28/20 05:09 03/28/20 05:09 General appearance: no acute distress - EENT Eyes: PERRL - Respiratory Respiratory: bilateral: CTA - Cardiovascular Rhythm: regular Heart Sounds: Present: S1 & S2 - Gastrointestinal General gastrointestinal: Present: soft, non-tender, non-distended - Labs CBC & Chem 7: 03/28/20 07:41 03/26/20 06:59 Labs: Laboratory Results - last 24 hr 03/24/20 03/27/20 03/27/20 15:19 13:00 20:00 WBC 2.8 L RBC 1.75 L Hgb 4.5 L* Hct 14.3 L* MCV 82 L MCH 26 L MCHC 31 L RDW 24.9 H Plt Count 21 L Blood Type A POSITIVE A POSITIVE Antibody Screen Negative Negative Crossmatch See Detail See Detail 03/27/20 03/28/20 20:10 07:41 WBC 3.5 L RBC 2.34 L Hgb 6.3 L 7.4 L Hct 19.5 L* 21.8 L MCV 84 MCH 27 L MCHC 32 RDW 21.7 H Plt Count 24 L Blood Type Antibody Screen Crossmatch
[2020-03-28 14:19] LABS: Hematocrit 21.2 % (35.5-45.6); Hemoglobin 7.3 gm/dl (11.8-15.2); Mean Corpuscular HGB Conc 35 % (32-34); Mean Corpuscular Volume 84 fl (84-94); Platelet Count 37 K/mm3 (140-440); Red Blood Count 2.53 M/mm3 (3.65-5.03); Red Cell Distribution Width 18.1 % (13.2-15.2)
--- NOTE | 2020-03-28 17:25 | Hem/Onc Progress Note ---
Subjective Interval history: heme data review 64yo man with h/o AVM, chronic iron deficiency, several hospitalizations during the past 6 years for severe anemia, usually with very low plt count 20's, refractory to plt transfusions-->sometimes very high plt count 1.5M Now eval for severe anemia and low plt count 20's and severe anemia no overt bleeding while in hospital has c/o L hip pain started steroid pulse has received RBC 6 units and plt 2 doses last rbc was overnight last night DATA REVIEWED BELOW IMPRESSION: severe anemia out of proportion to clinical appearance transfusion refractory--looking like AIHA even though daren neg 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, s/p IVIG x 2 doses RECOMMEND: cont same steroid pulse GI eval underway-->goal plt >50 for procedures nplate may be needed for ITP-->for now not planned bone marrow biopsy may be needed if counts stay low--for now not planned will try for outpt televisit hematology f/u after discharge Active Medications Methylprednisolone Sodium Succinate (Methylprednisolone Sod Succinate 125 Mg/2 Ml Inj) 60 mg IV Q12H LUCIAN Last Admin: 03/28/20 14:02 Dose: 60 mg Documented by: Laboratory Last Values WBC 8.3 K/mm3 (4.5-11.0) 03/28/20 13:54 Hgb 7.3 gm/dl (11.8-15.2) L 03/28/20 13:54 Hct 21.2 % (35.5-45.6) L 03/28/20 13:54 Plt Count 37 K/mm3 (140-440) L 03/28/20 13:54 Lactate Dehydrogenase 195 units/L (91-180) H 03/26/20 06:59 Crossmatch See Detail 03/27/20 20:00 Objective - Constitutional Vitals: Last Vital Signs Temp 98.1 F 03/28/20 12:57 Pulse 98 H 03/28/20 12:57 Resp 18 03/28/20 12:57 BP 165/89 03/28/20 12:57 Pulse Ox 98 03/28/20 12:57 - Labs Lab Results: Laboratory Results - last 24 hr 03/24/20 03/27/20 03/27/20 15:19 20:00 20:10 WBC 3.5 L RBC 2.34 L Hgb 6.3 L Hct 19.5 L* MCV 84 MCH 27 L MCHC 32 RDW 21.7 H Plt Count 24 L Blood Type A POSITIVE Antibody Screen Negative Crossmatch See Detail See Detail 03/28/20 03/28/20 07:41 13:54 WBC 8.3 RBC 2.53 L Hgb 7.4 L 7.3 L Hct 21.8 L 21.2 L MCV 84 MCH 29 MCHC 35 H RDW 18.1 H Plt Count 37 L Blood Type Antibody Screen Crossmatch Medications & Allergies - Medications Allergies/Adverse Reactions: Allergies No Known Allergies Allergy (Verified 08/27/17 07:25) Home Medications: Home Medications Medication Instructions Recorded Confirmed Last Taken Type Folic Acid [Folvite] 1 mg PO QDAY 30 Days #30 tablet 02/17/19 03/24/20 03/23/20 Rx Ferrous Sulfate [Feosol 325 MG tab] 325 mg PO BID #60 tablet 09/08/19 03/24/20 03/23/20 Rx Pantoprazole [Protonix TAB] 40 mg PO BID 60 Days #30 tablet 09/08/19 03/24/20 Unknown Rx Acetaminophen [Acetaminophen TAB] 1,000 mg PO Q6HR PRN #30 tablet 02/07/20 03/28/20 Unknown Rx Active Medications: Generic Name Dose Route Start Last Admin Trade Name Freq PRN Reason Stop Dose Admin Acetaminophen 650 mg 03/26/20 11:00 03/27/20 21:18 Acetaminophen 325 Mg Tab PO 650 mg Q4H PRN Administration Pain, Mild (1-3) Diphenhydramine HCl 25 mg 03/26/20 11:00 03/27/20 21:18 Diphenhydramine 50 Mg/Ml Vial IV 25 mg Q6H PRN Administration Rash Ferrous Sulfate 325 mg 03/24/20 23:00 03/28/20 10:10 Ferrous Sulfate 325 Mg Tab PO 325 mg BID LUCIAN Administration Folic Acid 1 mg 03/25/20 10:00 03/28/20 10:10 Folic Acid 1 Mg Tab PO 1 mg QDAY LUCIAN Administration Sodium Chloride 1,000 mls @ 50 mls/hr 03/26/20 08:15 03/27/20 12:25 Nacl 0.9% 1000 Ml IV 50 mls/hr DIRECT LUCIAN Administration Sodium Chloride 500 mls @ 0 mls/hr 03/27/20 17:34 Nacl 0.9% 500 Ml IV ONCE LUCIAN As Directed Methylprednisolone Sodium Succinate 60 mg 03/27/20 15:00 03/28/20 14:02 Methylprednisolone Sod Succinate 125 Mg/2 Ml Inj IV 60 mg Q12H LUCIAN Administration Pantoprazole Sodium 40 mg 03/27/20 07:30 03/28/20 10:10 Pantoprazole 40 Mg Tab PO 40 mg QDAC LUCIAN Administration
[2020-03-28] MEDS: ACETAMINOPHEN 325 MG TAB PO PRN (18:19)
[2020-03-29] MEDS: ACETAMINOPHEN 325 MG TAB PO PRN ×3 (02:06→23:09)
[2020-03-29] MEDS: methylPREDNISolone Sod Succinate 125 MG/2 ML INJ IV SCH (02:08)
[2020-03-29 06:06] LABS: Hematocrit 23.2 % (35.5-45.6); Hemoglobin 7.5 gm/dl (11.8-15.2); Mean Corpuscular HGB Conc 32 % (32-34); Mean Corpuscular Volume 87 fl (84-94); Platelet Count 105 K/mm3 (140-440); Red Blood Count 2.67 M/mm3 (3.65-5.03); Red Cell Distribution Width 19.1 % (13.2-15.2)
[2020-03-29 06:15] LABS: Blood Urea Nitrogen 14 mg/dL (9-20); Calcium 8.7 mg/dL (8.4-10.2); Hemolysis Index 11
[2020-03-29 06:17] LABS: BUN/Creatinine Ratio 23
[2020-03-29] MEDS: hydrALAZINE 20 MG/1 ML INJ IV PRN ×2 (07:06→23:10)
--- NOTE | 2020-03-29 09:01 | Hem/Onc Progress Note ---
Subjective Interval history: heme data review 64yo man with h/o AVM, chronic iron deficiency, now with acute ITP exacerbation and severe anemia, maybe AIHA on steroid pulse, s/p IVIG x 2 doses, has had several RBC transfusions no overt bleeding in hospital numbers improving DATA REVIEWED BELOW IMPRESSION: recent severe anemia out of proportion to clinical appearance transfusion refractory--looking like AIHA even though daren neg 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, s/p IVIG x 2 doses and steroid pulse RECOMMEND: OK for endoscopy from heme perspective, though not sure it's urgent start steroid "taper" planning for outpt prednisone taper over 2-4 weeks stay in hospital at least one more day to see stability skipping bone marrow biopsy will try for outpt televisit hematology f/u after discharge Active Medications Ferrous Sulfate (Ferrous Sulfate 325 Mg Tab) 325 mg PO BID [facility] Last Admin: 03/28/20 20:59 Dose: 325 mg Documented by: Folic Acid (Folic Acid 1 Mg Tab) 1 mg PO QDAY [facility] Last Admin: 03/28/20 10:10 Dose: 1 mg Documented by: Methylprednisolone Sodium Succinate (Methylprednisolone Sod Succinate 125 Mg/2 Ml Inj) 60 mg IV Q12H [facility] Last Admin: 03/29/20 02:08 Dose: 60 mg Documented by: Laboratory Last Values WBC 15.3 K/mm3 (4.5-11.0) H 03/29/20 05:15 Hgb 7.5 gm/dl (11.8-15.2) L 03/29/20 05:15 Hct 23.2 % (35.5-45.6) L 03/29/20 05:15 Plt Count 105 K/mm3 (140-440) L D 03/29/20 05:15 INR 1.09 (0.87-1.13) 03/24/20 15:18 APTT 23.6 Sec. (24.2-36.6) L 03/24/20 15:18 Lactate Dehydrogenase 195 units/L (91-180) H 03/26/20 06:59 SLIM, Poly Interpret Negative 03/25/20 00:40 Crossmatch See Detail 03/27/20 20:00 Objective - Constitutional Vitals: Last Vital Signs Temp 97.8 F 03/29/20 08:47 Pulse 91 H 03/29/20 08:47 Resp 18 03/29/20 05:26 BP 133/64 03/29/20 08:47 Pulse Ox 98 03/29/20 08:47 - Labs Lab Results: Laboratory Results - last 24 hr 03/28/20 03/29/20 03/29/20 13:54 05:15 05:15 WBC 8.3 15.3 H RBC 2.53 L 2.67 L Hgb 7.3 L 7.5 L Hct 21.2 L 23.2 L MCV 84 87 MCH 29 28 MCHC 35 H 32 RDW 18.1 H 19.1 H Plt Count 37 L 105 L D Sodium 138 Potassium 4.0 Chloride 104.6 Carbon Dioxide 23 Anion Gap 14 BUN 14 Creatinine 0.6 L Estimated GFR > 60 BUN/Creatinine Ratio 23 Glucose 350 H Calcium 8.7 Medications & Allergies - Medications Allergies/Adverse Reactions: Allergies No Known Allergies Allergy (Verified 08/27/17 07:25) Home Medications: Home Medications Medication Instructions Recorded Confirmed Last Taken Type Folic Acid [Folvite] 1 mg PO QDAY 30 Days #30 tablet 02/17/19 03/24/20 03/23/20 Rx Ferrous Sulfate [Feosol 325 MG tab] 325 mg PO BID #60 tablet 09/08/19 03/24/20 03/23/20 Rx Pantoprazole [Protonix TAB] 40 mg PO BID 60 Days #30 tablet 09/08/19 03/24/20 Unknown Rx Acetaminophen [Acetaminophen TAB] 1,000 mg PO Q6HR PRN #30 tablet 02/07/20 03/28/20 Unknown Rx Active Medications: Generic Name Dose Route Start Last Admin Trade Name Freq PRN Reason Stop Dose Admin Acetaminophen 650 mg 03/26/20 11:00 03/29/20 02:06 Acetaminophen 325 Mg Tab PO 650 mg Q4H PRN Administration Pain, Mild (1-3) Diphenhydramine HCl 25 mg 03/26/20 11:00 03/27/20 21:18 Diphenhydramine 50 Mg/Ml Vial IV 25 mg Q6H PRN Administration Rash Ferrous Sulfate 325 mg 03/24/20 23:00 03/28/20 20:59 Ferrous Sulfate 325 Mg Tab PO 325 mg BID LUCIAN Administration Folic Acid 1 mg 03/25/20 10:00 03/28/20 10:10 Folic Acid 1 Mg Tab PO 1 mg QDAY LUCIAN Administration Hydralazine HCl 5 mg 03/29/20 06:16 03/29/20 07:06 Hydralazine 20 Mg/1 Ml Inj IV 5 mg Q6HR PRN Administration Hypertension Sodium Chloride 1,000 mls @ 50 mls/hr 03/26/20 08:15 03/27/20 12:25 Nacl 0.9% 1000 Ml IV 50 mls/hr DIRECT LUCIAN Administration Sodium Chloride 500 mls @ 0 mls/hr 03/27/20 17:34 Nacl 0.9% 500 Ml IV ONCE LUCIAN As Directed Methylprednisolone Sodium Succinate 60 mg 03/27/20 15:00 03/29/20 02:08 Methylprednisolone Sod Succinate 125 Mg/2 Ml Inj IV 60 mg Q12H LUCIAN Administration Pantoprazole Sodium 40 mg 03/27/20 07:30 03/28/20 10:10 Pantoprazole 40 Mg Tab PO 40 mg QDAC LUCIAN Administration
[2020-03-29 09:43] LABS: Anisocytosis 1+; Band Neutrophils # (Manual) 0.5 K/mm3; Total Cells Counted 100
[2020-03-29 09:44] LABS: Hypochromasia Few; Macrocytosis Few
[2020-03-29 09:50] LABS: Platelet Estimate Consistent w Auto
[2020-03-29] MEDS: PANTOPRAZOLE 40 MG TAB PO SCH (10:24)
[2020-03-29] MEDS: predniSONE 20 MG TAB PO SCH (10:24)
--- NOTE | 2020-03-29 10:50 | Progress Note ---
Assessment and Plan Assessment and plan: 64 years old male with history of diabetes and chronic anemia with multiple blood transfusions and colonoscopies and endoscopies before. 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 "[id number]-[id number]/HHT" syndrome, ? ITP Lower GI bleed Secondary to AVMs GI following T2DM (type 2 diabetes mellitus) Coverage for now Check hemoglobin A1c DVT prophylaxis 03/25/2020 GI consult appreciated Patient is thrombocytopenic Hematology consult requested Hemoglobin improved to 7.5 03/26/2020 Hemoglobin again dropped to 6.4 Platelet count also dropped to about 14,000 03/27. Cont. IVIG for therombocytopenia. PRBCs as needed. Endoscopy when plt > 50. F/U electrophoresis and SPEP 03/28. Continue IVIG and pulse steroids per hematology recommendations. Probable autoimmune hemolytic anemia/ITP. GI evaluation when platelets greater than 50,000. Bone marrow biopsy per hematology. 03/29. Patient is s/p IVIG x2 doses and pulse dosed steroids. Start steroid taper per hematology and okay for endoscopy per hematology. Bone marrow biopsy and endoscopy may be done as an outpatient. Anticipate discharge in a.m. History Interval history: No new issues Hospitalist Physical - Constitutional Vitals: Temp Pulse Resp BP Pulse Ox 97.8 F 91 H 18 133/64 98 03/29/20 08:47 03/29/20 08:47 03/29/20 05:26 03/29/20 08:47 03/29/20 08:47 General appearance: Present: no acute distress, well-nourished - EENT Eyes: Present: PERRL, EOM intact ENT: hearing intact, clear oral mucosa, dentition normal - Neck Neck: Present: supple, normal ROM - Respiratory Respiratory effort: normal Respiratory: bilateral: CTA - Cardiovascular Rhythm: regular Heart Sounds: Present: S1 & S2. Absent: gallop, rub - Extremities Extremities: no ischemia, No edema, Full ROM - Abdominal General gastrointestinal: soft, non-tender, non-distended, normal bowel sounds - Integumentary Integumentary: Present: clear, warm, dry - Neurologic Neurologic: CNII-XII intact, moves all extremities HEART Score - HEART Score Troponin: Troponin T < 0.010 ng/mL (0.00-0.029) 03/24/20 13:33 Results - Labs CBC & Chem 7: 03/29/20 05:15 03/29/20 05:15 Labs: Laboratory Last Values WBC 15.3 K/mm3 (4.5-11.0) H 03/29/20 05:15 RBC 2.67 M/mm3 (3.65-5.03) L 03/29/20 05:15 Hgb 7.5 gm/dl (11.8-15.2) L 03/29/20 05:15 Hct 23.2 % (35.5-45.6) L 03/29/20 05:15 MCV 87 fl (84-94) 03/29/20 05:15 MCH 28 pg (28-32) 03/29/20 05:15 MCHC 32 % (32-34) 03/29/20 05:15 RDW 19.1 % (13.2-15.2) H 03/29/20 05:15 Plt Count 105 K/mm3 (140-440) L D 03/29/20 05:15 Add Manual Diff Complete 03/29/20 05:15 Total Counted 100 03/29/20 05:15 Seg Neuts % (Manual) 86.0 % (40.0-70.0) H 03/29/20 05:15 Band Neutrophils % 3.0 % 03/29/20 05:15 Lymphocytes % (Manual) 8.0 % (13.4-35.0) L 03/29/20 05:15 Monocytes % (Manual) 3.0 % (0.0-7.3) 03/29/20 05:15 Eosinophils % (Manual) 2.0 % (0.0-4.3) 03/26/20 06:59 Metamyelocytes % 4.0 % 03/25/20 08:38 Nucleated RBC % Not Reportable 03/29/20 05:15 Seg Neutrophils # Man 13.2 K/mm3 (1.8-7.7) H 03/29/20 05:15 Band Neutrophils # 0.5 K/mm3 03/29/20 05:15 Lymphocytes # (Manual) 1.2 K/mm3 (1.2-5.4) 03/29/20 05:15 Abs React Lymphs (Man) 0.0 K/mm3 03/29/20 05:15 Monocytes # (Manual) 0.5 K/mm3 (0.0-0.8) 03/29/20 05:15 Eosinophils # (Manual) 0.0 K/mm3 (0.0-0.4) 03/29/20 05:15 Basophils # (Manual) 0.0 K/mm3 (0.0-0.1) 03/29/20 05:15 Metamyelocytes # 0.0 K/mm3 03/29/20 05:15 Myelocytes # 0.0 K/mm3 03/29/20 05:15 Promyelocytes # 0.0 K/mm3 03/29/20 05:15 Blast Cells # 0.0 K/mm3 03/29/20 05:15 WBC Morphology Not Reportable 03/29/20 05:15 Hypersegmented Neuts Not Reportable 03/29/20 05:15 Hyposegmented Neuts Not Reportable 03/29/20 05:15 Hypogranular Neuts Not Reportable 03/29/20 05:15 Smudge Cells Not Reportable 03/29/20 05:15 Toxic Granulation Not Reportable 03/29/20 05:15 Toxic Vacuolation Not Reportable 03/29/20 05:15 Dohle Bodies Not Reportable 03/29/20 05:15 Pelger-Huet Anomaly Not Reportable 03/29/20 05:15 Katia Rods Not Reportable 03/29/20 05:15 Platelet Estimate Consistent w auto 03/29/20 05:15 Clumped Platelets Not Reportable 03/29/20 05:15 Plt Clumps, EDTA Not Reportable 03/29/20 05:15 Large Platelets Not Reportable 03/29/20 05:15 Giant Platelets Not Reportable 03/29/20 05:15 Platelet Satelliting Not Reportable 03/29/20 05:15 Plt Morphology Comment Not Reportable 03/29/20 05:15 RBC Morphology Not Reportable 03/29/20 05:15 Dimorphic RBCs Not Reportable 03/29/20 05:15 Polychromasia Few 03/29/20 05:15 Hypochromasia Few 03/29/20 05:15 Poikilocytosis Not Reportable 03/29/20 05:15 Anisocytosis 1+ 03/29/20 05:15 Microcytosis Not Reportable 03/29/20 05:15 Macrocytosis Few 03/29/20 05:15 Spherocytes Not Reportable 03/29/20 05:15 Pappenheimer Bodies Not Reportable 03/29/20 05:15 Sickle Cells Not Reportable 03/29/20 05:15 Target Cells Not Reportable 03/29/20 05:15 Tear Drop Cells Not Reportable 03/29/20 05:15 Ovalocytes Not Reportable 03/29/20 05:15 Helmet Cells Not Reportable 03/29/20 05:15 Suarez-Buhl Bodies Not Reportable 03/29/20 05:15 [place] Rings Not Reportable 03/29/20 05:15 Luke Cells Not Reportable 03/29/20 05:15 Bite Cells Not Reportable 03/29/20 05:15 Crenated Cell Not Reportable 03/29/20 05:15 Elliptocytes Not Reportable 03/29/20 05:15 Acanthocytes (Spur) Not Reportable 03/29/20 05:15 Rouleaux Not Reportable 03/29/20 05:15 Hemoglobin C Crystals Not Reportable 03/29/20 05:15 Schistocytes Not Reportable 03/29/20 05:15 Malaria parasites Not Reportable 03/29/20 05:15 Jl Bodies Not Reportable 03/29/20 05:15 Hem Pathologist Commnt No 03/29/20 05:15 PT 13.9 Sec. (12.2-14.9) 03/24/20 15:18 INR 1.09 (0.87-1.13) 03/24/20 15:18 APTT 23.6 Sec. (24.2-36.6) L 03/24/20 15:18 Sodium 138 mmol/L (137-145) 03/29/20 05:15 Potassium 4.0 mmol/L (3.6-5.0) 03/29/20 05:15 Chloride 104.6 mmol/L (98-107) 03/29/20 05:15 Carbon Dioxide 23 mmol/L (22-30) 03/29/20 05:15 Anion Gap 14 mmol/L 03/29/20 05:15 BUN 14 mg/dL (9-20) 03/29/20 05:15 Creatinine 0.6 mg/dL (0.8-1.3) L 03/29/20 05:15 Estimated GFR > 60 ml/min 03/29/20 05:15 BUN/Creatinine Ratio 23 % 03/29/20 05:15 Glucose 350 mg/dL (75-100) H 03/29/20 05:15 Calcium 8.7 mg/dL (8.4-10.2) 03/29/20 05:15 Total Bilirubin 0.60 mg/dL (0.1-1.2) 03/24/20 13:33 AST 18 units/L (5-40) 03/24/20 13:33 ALT 11 units/L (7-56) 03/24/20 13:33 Alkaline Phosphatase 59 units/L (35-129) 03/24/20 13:33 Lactate Dehydrogenase 195 units/L (91-180) H 03/26/20 06:59 Troponin T < 0.010 ng/mL (0.00-0.029) 03/24/20 13:33 Total Protein 6.6 g/dL (6.3-8.2) 03/24/20 13:33 Albumin 4.2 g/dL (3.9-5) 03/24/20 13:33 Albumin/Globulin Ratio 1.8 % 03/24/20 13:33 Urine Color Yellow (Yellow) 03/24/20 14:23 Urine Turbidity Clear (Clear) 03/24/20 14:23 Urine pH 5.0 (5.0-7.0) 03/24/20 14:23 Ur Specific [place] 1.013 (1.003-1.030) 03/24/20 14:23 Urine Protein <15 mg/dl mg/dL (Negative) 03/24/20 14:23 Urine Glucose (UA) Neg mg/dL (Negative) 03/24/20 14:23 Urine Ketones Neg mg/dL (Negative) 03/24/20 14:23 Urine Blood Neg (Negative) 03/24/20 14:23 Urine Nitrite Neg (Negative) 03/24/20 14:23 Urine Bilirubin Neg (Negative) 03/24/20 14:23 Urine Urobilinogen 4.0 mg/dL (<2.0) 03/24/20 14:23 Ur Leukocyte Esterase Neg (Negative) 03/24/20 14:23 Urine WBC (Auto) 2.0 /HPF (0.0-6.0) 03/24/20 14:23 Urine RBC (Auto) 1.0 /HPF (0.0-6.0) 03/24/20 14:23 Urine Mucus Few /HPF 03/24/20 14:23 Nasal Screen MRSA (PCR) Negative (Negative) 03/25/20 09:01 Blood Type A POSITIVE 03/27/20 20:00 Antibody Screen Negative 03/27/20 20:00 Direct Antiglob Test Negative 03/25/20 00:40 SLIM, Poly Interpret Negative 03/25/20 00:40 Crossmatch See Detail 03/27/20 20:00 Parker/IV: Voiding Method Urinal IV Catheter Type [Left INT / Saline Lock Antecubital] IV Catheter Type [Left Forearm INT / Saline Lock ] IV Catheter Type [Right Hand] right EJ Active Medications - Current Medications Current Medications: Generic Name Dose Route Start Last Admin Trade Name Freq PRN Reason Stop Dose Admin Acetaminophen 650 mg 03/26/20 11:00 03/29/20 10:23 Acetaminophen 325 Mg Tab PO 650 mg Q4H PRN Administration Pain, Mild (1-3) Diphenhydramine HCl 25 mg 03/26/20 11:00 03/27/20 21:18 Diphenhydramine 50 Mg/Ml Vial IV 25 mg Q6H PRN Administration Rash Hydralazine HCl 5 mg 03/29/20 06:16 03/29/20 07:06 Hydralazine 20 Mg/1 Ml Inj IV 5 mg Q6HR PRN Administration Hypertension Sodium Chloride 1,000 mls @ 50 mls/hr 03/26/20 08:15 03/27/20 12:25 Nacl 0.9% 1000 Ml IV 50 mls/hr DIRECT LUCIAN Administration Sodium Chloride 500 mls @ 0 mls/hr 03/27/20 17:34 Nacl 0.9% 500 Ml IV ONCE LUCIAN As Directed Pantoprazole Sodium 40 mg 03/27/20 07:30 03/29/20 10:24 Pantoprazole 40 Mg Tab PO 40 mg QDAC LUCIAN Administration Polyethylene Glycol/Electrolytes 4,000 ml 03/29/20 18:00 Polyethylene Glycol/Elect Soln 4000 Ml PO 03/29/20 20:00 ONCE NR Prednisone 40 mg 03/29/20 10:00 03/29/20 10:24 Prednisone 20 Mg Tab PO 40 mg QDAY LUCIAN Administration Nutrition/Malnutrition Assess - Dietary Evaluation Nutrition/Malnutrition Findings: Nutrition Notes Start: 03/26/20 13:21 Freq: Status: Active Protocol: Document 03/26/20 13:21 (Rec: 03/26/20 13:24 [id number]) Nutrition Notes Need for Assessment generated from: Low BMI Initial or Follow up Brief Note Current Diagnosis Diabetes Other Pertinent Diagnosis lower GIB, anemia Current Diet NPO Subjective/Other Information Screen for low BMI. Pt reports always being smaller and no recent weight loss. Pt has no appetite changes and is feeling hungry. Pt does not appear malnurished. Nutrition Intervention Revisit per MD consult or patient Sign Off request:
[2020-03-29 10:52] LABS: Hematocrit 24.9 % (35.5-45.6); Hemoglobin 7.8 gm/dl (11.8-15.2); Mean Corpuscular HGB Conc 31 % (32-34); Mean Corpuscular Volume 89 fl (84-94); Platelet Count 140 K/mm3 (140-440); Red Cell Distribution Width 19.6 % (13.2-15.2)
--- NOTE | 2020-03-29 12:58 | Gastroenterology Progress Note ---
Assessment and Plan 1. GI: stable h/h - increase platelets - egd/colonoscopy in am Subjective Date of service: 03/29/20 Principal diagnosis: Symptomatic anemia, chronic GI bleed Interval history: - no GI complaints overnight Objective - Constitutional Vitals: Temp Pulse Resp BP Pulse Ox 98.7 F 98 H 20 144/75 98 03/29/20 12:31 03/29/20 12:31 03/29/20 12:31 03/29/20 12:31 03/29/20 12:31 - EENT Eyes: PERRL - Respiratory Respiratory: bilateral: CTA - Cardiovascular Rhythm: regular Heart Sounds: Present: S1 & S2 - Gastrointestinal General gastrointestinal: Present: soft, non-tender, non-distended - Labs CBC & Chem 7: 03/29/20 10:37 03/29/20 05:15 Labs: Laboratory Results - last 24 hr 03/28/20 03/29/20 03/29/20 13:54 05:15 05:15 WBC 8.3 15.3 H RBC 2.53 L 2.67 L Hgb 7.3 L 7.5 L Hct 21.2 L 23.2 L MCV 84 87 MCH 29 28 MCHC 35 H 32 RDW 18.1 H 19.1 H Plt Count 37 L 105 L D Add Manual Diff Complete Total Counted 100 Seg Neuts % (Manual) 86.0 H Band Neutrophils % 3.0 Lymphocytes % (Manual) 8.0 L Monocytes % (Manual) 3.0 Nucleated RBC % Not Reportable Seg Neutrophils # Man 13.2 H Band Neutrophils # 0.5 Lymphocytes # (Manual) 1.2 Abs React Lymphs (Man) 0.0 Monocytes # (Manual) 0.5 Eosinophils # (Manual) 0.0 Basophils # (Manual) 0.0 Metamyelocytes # 0.0 Myelocytes # 0.0 Promyelocytes # 0.0 Blast Cells # 0.0 WBC Morphology Not Reportable Hypersegmented Neuts Not Reportable Hyposegmented Neuts Not Reportable Hypogranular Neuts Not Reportable Smudge Cells Not Reportable Toxic Granulation Not Reportable Toxic Vacuolation Not Reportable Dohle Bodies Not Reportable Pelger-Huet Anomaly Not Reportable Katia Rods Not Reportable Platelet Estimate Consistent w auto Clumped Platelets Not Reportable Plt Clumps, EDTA Not Reportable Large Platelets Not Reportable Giant Platelets Not Reportable Platelet Satelliting Not Reportable Plt Morphology Comment Not Reportable RBC Morphology Not Reportable Dimorphic RBCs Not Reportable Polychromasia Few Hypochromasia Few Poikilocytosis Not Reportable Anisocytosis 1+ Microcytosis Not Reportable Macrocytosis Few Spherocytes Not Reportable Pappenheimer Bodies Not Reportable Sickle Cells Not Reportable Target Cells Not Reportable Tear Drop Cells Not Reportable Ovalocytes Not Reportable Helmet Cells Not Reportable Suarez-[place]ornton Bodies Not Reportable [place] Rings Not Reportable Luke Cells Not Reportable Bite Cells Not Reportable Crenated Cell Not Reportable Elliptocytes Not Reportable Acanthocytes (Spur) Not Reportable Rouleaux Not Reportable Hemoglobin C Crystals Not Reportable Schistocytes Not Reportable Malaria parasites Not Reportable Jl Bodies Not Reportable Hem Pathologist Commnt No Sodium 138 Potassium 4.0 Chloride 104.6 Carbon Dioxide 23 Anion Gap 14 BUN 14 Creatinine 0.6 L Estimated GFR > 60 BUN/Creatinine Ratio 23 Glucose 350 H Calcium 8.7 03/29/20 10:37 WBC 17.3 H RBC 2.80 L Hgb 7.8 L Hct 24.9 L MCV 89 MCH 28 MCHC 31 L RDW 19.6 H Plt Count 140 Add Manual Diff Total Counted Seg Neuts % (Manual) Band Neutrophils % Lymphocytes % (Manual) Monocytes % (Manual) Nucleated RBC % Seg Neutrophils # Man Band Neutrophils # Lymphocytes # (Manual) Abs React Lymphs (Man) Monocytes # (Manual) Eosinophils # (Manual) Basophils # (Manual) Metamyelocytes # Myelocytes # Promyelocytes # Blast Cells # WBC Morphology Hypersegmented Neuts Hyposegmented Neuts Hypogranular Neuts Smudge Cells Toxic Granulation Toxic Vacuolation Dohle Bodies Pelger-Huet Anomaly Katia Rods Platelet Estimate Clumped Platelets Plt Clumps, EDTA Large Platelets Giant Platelets Platelet Satelliting Plt Morphology Comment RBC Morphology Dimorphic RBCs Polychromasia Hypochromasia Poikilocytosis Anisocytosis Microcytosis Macrocytosis Spherocytes Pappenheimer Bodies Sickle Cells Target Cells Tear Drop Cells Ovalocytes Helmet Cells Suarez-[place]orn[place] Bodies Paul[place] Rings [place] Cells Bite Cells Crenated Cell Elliptocytes Acanthocytes (Spur) Rouleaux Hemoglobin C Crystals Schistocytes Malaria parasites Jl Bodies Hem Pathologist Commnt Sodium Potassium Chloride Carbon Dioxide Anion Gap BUN Creatinine Estimated GFR BUN/Creatinine Ratio Glucose Calcium
--- NOTE | 2020-03-29 16:49 | Post Anesthesia Evaluation ---
- Post Anesthesia Evaluation Patient Participated: Yes Airway Patent: Yes Stable Respiratory Function: Yes Nausea/Vomiting: No Temp > 96.8F: Yes Pain Manageable: Yes Adequeate Hydration: Yes Anesthesia Complications: No Block Receding Appropriately: Not Applicable Patient on Ventilator: No
[2020-03-29] MEDS ORDERED: POLYETHYLENE GLYCOL/ELECT SOLN 4000 ML PO NR (18:00)
[2020-03-30 05:50] LABS: Hematocrit 22.4 % (35.5-45.6); Hemoglobin 7.4 gm/dl (11.8-15.2); Mean Corpuscular HGB Conc 33 % (32-34); Mean Corpuscular Volume 85 fl (84-94); Platelet Count 259 K/mm3 (140-440); Red Blood Count 2.64 M/mm3 (3.65-5.03); Red Cell Distribution Width 19.5 % (13.2-15.2)
[2020-03-30 06:05] LABS: Blood Urea Nitrogen 14 mg/dL (9-20); Calcium 8.6 mg/dL (8.4-10.2); Hemolysis Index 0
[2020-03-30 06:07] LABS: BUN/Creatinine Ratio 23
[2020-03-30 06:52] LABS: Band Neutrophils # (Manual) 0.2 K/mm3; Total Cells Counted 100
[2020-03-30 06:53] LABS: Anisocytosis 1+; Hypochromasia 2+; Schistocytes Few; Tear Drop Cells Few
[2020-03-30 06:54] LABS: Platelet Estimate Consistent w Auto
[2020-03-30] MEDS: PANTOPRAZOLE 40 MG TAB PO SCH (08:15)
[2020-03-30] MEDS: predniSONE 20 MG TAB PO SCH ×2 (11:05→16:34)
[2020-03-30] MEDS ORDERED: SODIUM CHLORIDE 0.9% 1000 ML 1,000 ML IV SCH (12:00)
--- NOTE | 2020-03-30 13:29 | Progress Note ---
Assessment and Plan Assessment and plan: 64 years old male with history of diabetes and chronic anemia with multiple blood transfusions and colonoscopies and endoscopies before. 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 "Gtqbn-Kpcmx-Jzdqy/HHT" syndrome, ? ITP Left hip pain lower GI bleed Etiology probably secondary to AVMs GI following T2DM (type 2 diabetes mellitus) Coverage for now Check hemoglobin A1c DVT prophylaxis 03/25/2020 GI consult appreciated Patient is thrombocytopenic Hematology consult requested Hemoglobin improved to 7.5 03/26/2020 Hemoglobin again dropped to 6.4 Platelet count also dropped to about 14,000 03/27. Cont. IVIG for therombocytopenia. PRBCs as needed. Endoscopy when plt > 50. F/U electrophoresis and SPEP 03/28. Continue IVIG and pulse steroids per hematology recommendations. Probable autoimmune hemolytic anemia/ITP. GI evaluation when platelets greater than 50,000. Bone marrow biopsy per hematology. 03/29. Patient is s/p IVIG x2 doses and pulse dosed steroids. Start steroid taper per hematology and okay for endoscopy per hematology. Bone marrow biopsy and endoscopy may be done as an outpatient. Anticipate discharge in a.m. 03/30. Patient complains of left hip pain which has limited his mobility. Check CT scan of the hip to rule out fracture. Left hip plain films were negative on admission. Consider Ortho evaluation. PT/OT evaluation after imaging. EGD/colonoscopy today per GI for anemia. History Interval history: No new issues Hospitalist Physical - Constitutional Vitals: Temp Pulse Resp BP Pulse Ox 98.1 F 98 H 19 142/73 100 03/30/20 09:19 03/30/20 10:00 03/30/20 10:00 03/30/20 09:19 03/30/20 10:00 General appearance: Present: no acute distress, well-nourished - EENT Eyes: Present: PERRL, EOM intact ENT: hearing intact, clear oral mucosa, dentition normal - Neck Neck: Present: supple, normal ROM - Respiratory Respiratory effort: normal Respiratory: bilateral: CTA - Cardiovascular Rhythm: regular Heart Sounds: Present: S1 & S2. Absent: gallop, rub - Extremities Extremities: no ischemia, No edema, Full ROM - Abdominal General gastrointestinal: soft, non-tender, non-distended, normal bowel sounds - Integumentary Integumentary: Present: clear, warm, dry - Neurologic Neurologic: CNII-XII intact, moves all extremities HEART Score - HEART Score Troponin: Troponin T < 0.010 ng/mL (0.00-0.029) 03/24/20 13:33 Results - Labs CBC & Chem 7: 03/30/20 05:33 03/30/20 05:33 Labs: Laboratory Last Values WBC 15.3 K/mm3 (4.5-11.0) H 03/30/20 05:33 RBC 2.64 M/mm3 (3.65-5.03) L 03/30/20 05:33 Hgb 7.4 gm/dl (11.8-15.2) L 03/30/20 05:33 Hct 22.4 % (35.5-45.6) L 03/30/20 05:33 MCV 85 fl (84-94) 03/30/20 05:33 MCH 28 pg (28-32) 03/30/20 05:33 MCHC 33 % (32-34) 03/30/20 05:33 RDW 19.5 % (13.2-15.2) H 03/30/20 05:33 Plt Count 259 K/mm3 (140-440) 03/30/20 05:33 Add Manual Diff Complete 03/30/20 05:33 Total Counted 100 03/30/20 05:33 Seg Neuts % (Manual) 81.0 % (40.0-70.0) H 03/30/20 05:33 Band Neutrophils % 1.0 % 03/30/20 05:33 Lymphocytes % (Manual) 9.0 % (13.4-35.0) L 03/30/20 05:33 Monocytes % (Manual) 7.0 % (0.0-7.3) 03/30/20 05:33 Eosinophils % (Manual) 2.0 % (0.0-4.3) 03/26/20 06:59 Metamyelocytes % 2.0 % 03/30/20 05:33 Nucleated RBC % Not Reportable 03/30/20 05:33 Seg Neutrophils # Man 12.4 K/mm3 (1.8-7.7) H 03/30/20 05:33 Band Neutrophils # 0.2 K/mm3 03/30/20 05:33 Lymphocytes # (Manual) 1.4 K/mm3 (1.2-5.4) 03/30/20 05:33 Abs React Lymphs (Man) 0.0 K/mm3 03/30/20 05:33 Monocytes # (Manual) 1.1 K/mm3 (0.0-0.8) H 03/30/20 05:33 Eosinophils # (Manual) 0.0 K/mm3 (0.0-0.4) 03/30/20 05:33 Basophils # (Manual) 0.0 K/mm3 (0.0-0.1) 03/30/20 05:33 Metamyelocytes # 0.3 K/mm3 03/30/20 05:33 Myelocytes # 0.0 K/mm3 03/30/20 05:33 Promyelocytes # 0.0 K/mm3 03/30/20 05:33 Blast Cells # 0.0 K/mm3 03/30/20 05:33 WBC Morphology Not Reportable 03/30/20 05:33 Hypersegmented Neuts Not Reportable 03/30/20 05:33 Hyposegmented Neuts Not Reportable 03/30/20 05:33 Hypogranular Neuts Not Reportable 03/30/20 05:33 Smudge Cells Not Reportable 03/30/20 05:33 Toxic Granulation Not Reportable 03/30/20 05:33 Toxic Vacuolation Not Reportable 03/30/20 05:33 Dohle Bodies Not Reportable 03/30/20 05:33 Pelger-Huet Anomaly Not Reportable 03/30/20 05:33 Katia Rods Not Reportable 03/30/20 05:33 Platelet Estimate Consistent w auto 03/30/20 05:33 Clumped Platelets Not Reportable 03/30/20 05:33 Plt Clumps, EDTA Not Reportable 03/30/20 05:33 Large Platelets Not Reportable 03/30/20 05:33 Giant Platelets Not Reportable 03/30/20 05:33 Platelet Satelliting Not Reportable 03/30/20 05:33 Plt Morphology Comment Not Reportable 03/30/20 05:33 RBC Morphology Not Reportable 03/30/20 05:33 Dimorphic RBCs Not Reportable 03/30/20 05:33 Polychromasia Few 03/30/20 05:33 Hypochromasia 2+ 03/30/20 05:33 Poikilocytosis Not Reportable 03/30/20 05:33 Anisocytosis 1+ 03/30/20 05:33 Microcytosis Not Reportable 03/30/20 05:33 Macrocytosis Not Reportable 03/30/20 05:33 Spherocytes Not Reportable 03/30/20 05:33 Pappenheimer Bodies Not Reportable 03/30/20 05:33 Sickle Cells Not Reportable 03/30/20 05:33 Target Cells Not Reportable 03/30/20 05:33 Tear Drop Cells Few 03/30/20 05:33 Ovalocytes Not Reportable 03/30/20 05:33 Helmet Cells Not Reportable 03/30/20 05:33 Suarez-[place]ung Bodies Not Reportable 03/30/20 05:33 [place] Rings Not Reportable 03/30/20 05:33 Luke Cells Not Reportable 03/30/20 05:33 Bite Cells Not Reportable 03/30/20 05:33 Crenated Cell Not Reportable 03/30/20 05:33 Elliptocytes Not Reportable 03/30/20 05:33 Acanthocytes (Spur) Not Reportable 03/30/20 05:33 Rouleaux Not Reportable 03/30/20 05:33 Hemoglobin C Crystals Not Reportable 03/30/20 05:33 Schistocytes Few 03/30/20 05:33 Malaria parasites Not Reportable 03/30/20 05:33 Jl Bodies Not Reportable 03/30/20 05:33 Hem Pathologist Commnt No 03/30/20 05:33 PT 13.9 Sec. (12.2-14.9) 03/24/20 15:18 INR 1.09 (0.87-1.13) 03/24/20 15:18 APTT 23.6 Sec. (24.2-36.6) L 03/24/20 15:18 Sodium 141 mmol/L (137-145) 03/30/20 05:33 Potassium 3.4 mmol/L (3.6-5.0) L 03/30/20 05:33 Chloride 103.5 mmol/L (98-107) 03/30/20 05:33 Carbon Dioxide 34 mmol/L (22-30) H D 03/30/20 05:33 Anion Gap 7 mmol/L 03/30/20 05:33 BUN 14 mg/dL (9-20) 03/30/20 05:33 Creatinine 0.6 mg/dL (0.8-1.3) L 03/30/20 05:33 Estimated GFR > 60 ml/min 03/30/20 05:33 BUN/Creatinine Ratio 23 % 03/30/20 05:33 Glucose 175 mg/dL (75-100) H 03/30/20 05:33 Calcium 8.6 mg/dL (8.4-10.2) 03/30/20 05:33 Magnesium 1.70 mg/dL (1.7-2.3) 03/30/20 05:33 Total Bilirubin 0.60 mg/dL (0.1-1.2) 03/24/20 13:33 AST 18 units/L (5-40) 03/24/20 13:33 ALT 11 units/L (7-56) 03/24/20 13:33 Alkaline Phosphatase 59 units/L (35-129) 03/24/20 13:33 Lactate Dehydrogenase 195 units/L (91-180) H 03/26/20 06:59 Troponin T < 0.010 ng/mL (0.00-0.029) 03/24/20 13:33 Total Protein 6.6 g/dL (6.3-8.2) 03/24/20 13:33 Albumin 4.2 g/dL (3.9-5) 03/24/20 13:33 Albumin/Globulin Ratio 1.8 % 03/24/20 13:33 Urine Color Yellow (Yellow) 03/24/20 14:23 Urine Turbidity Clear (Clear) 03/24/20 14:23 Urine pH 5.0 (5.0-7.0) 03/24/20 14:23 Ur Specific Chloride 1.013 (1.003-1.030) 03/24/20 14:23 Urine Protein <15 mg/dl mg/dL (Negative) 03/24/20 14:23 Urine Glucose (UA) Neg mg/dL (Negative) 03/24/20 14:23 Urine Ketones Neg mg/dL (Negative) 03/24/20 14:23 Urine Blood Neg (Negative) 03/24/20 14:23 Urine Nitrite Neg (Negative) 03/24/20 14:23 Urine Bilirubin Neg (Negative) 03/24/20 14:23 Urine Urobilinogen 4.0 mg/dL (<2.0) 03/24/20 14:23 Ur Leukocyte Esterase Neg (Negative) 03/24/20 14:23 Urine WBC (Auto) 2.0 /HPF (0.0-6.0) 03/24/20 14:23 Urine RBC (Auto) 1.0 /HPF (0.0-6.0) 03/24/20 14:23 Urine Mucus Few /HPF 03/24/20 14:23 Nasal Screen MRSA (PCR) Negative (Negative) 03/25/20 09:01 Blood Type A POSITIVE 03/27/20 20:00 Antibody Screen Negative 03/27/20 20:00 Direct Antiglob Test Negative 03/25/20 00:40 SLIM, Poly Interpret Negative 03/25/20 00:40 Crossmatch See Detail 03/27/20 20:00 Parker/IV: Voiding Method Urinal IV Catheter Type [Left INT / Saline Lock Antecubital] IV Catheter Type [Left Forearm INT / Saline Lock ] IV Catheter Type [Right Hand] right EJ Active Medications - Current Medications Current Medications: Generic Name Dose Route Start Last Admin Trade Name Freq PRN Reason Stop Dose Admin Acetaminophen 650 mg 03/26/20 11:00 03/29/20 23:09 Acetaminophen 325 Mg Tab PO 650 mg Q4H PRN Administration Pain, Mild (1-3) Diphenhydramine HCl 25 mg 03/26/20 11:00 03/27/20 21:18 Diphenhydramine 50 Mg/Ml Vial IV 25 mg Q6H PRN Administration Rash Hydralazine HCl 5 mg 03/29/20 06:16 03/29/20 23:10 Hydralazine 20 Mg/1 Ml Inj IV 5 mg Q6HR PRN Administration Hypertension Sodium Chloride 500 mls @ 0 mls/hr 03/27/20 17:34 Nacl 0.9% 500 Ml IV ONCE LUCIAN As Directed Sodium Chloride 1,000 mls @ 50 mls/hr 03/30/20 12:00 Nacl 0.9% 1000 Ml IV DIRECT LUCIAN Pantoprazole Sodium 40 mg 03/27/20 07:30 03/30/20 08:15 Pantoprazole 40 Mg Tab PO Not Given QDAC LUCIAN Prednisone 40 mg 03/29/20 10:00 03/30/20 11:05 Prednisone 20 Mg Tab PO Not Given QDAY LUCIAN Nutrition/Malnutrition Assess - Dietary Evaluation Nutrition/Malnutrition Findings: Nutrition Notes Start: 03/26/20 13:21 Freq: Status: Active Protocol: Document 03/26/20 13:21 (Rec: 03/26/20 13:24 [id number]) Nutrition Notes Need for Assessment generated from: Low BMI Initial or Follow up Brief Note Current Diagnosis Diabetes Other Pertinent Diagnosis lower GIB, anemia Current Diet NPO Subjective/Other Information Screen for low BMI. Pt reports always being smaller and no recent weight loss. Pt has no appetite changes and is feeling hungry. Pt does not appear malnurished. Nutrition Intervention Revisit per MD consult or patient Sign Off request:
--- NOTE | 2020-03-30 14:27 | Anesthesia Consultation ---
Anesthesia Consult and Med Hx Date of service: 03/30/20 - Airway Anesthetic Teeth Evaluation: Edentulous ROM Head & Neck: Adequate Mental/Hyoid Distance: Adequate Mallampati Class: Class III Intubation Access Assessment: Probably Good - Pre-Operative Health Status ASA Pre-Surgery Classification: ASA3 Proposed Anesthetic Plan: MAC - Pulmonary Hx Smoking: Yes (1 pack q2days) Hx Asthma: No Hx Respiratory Symptoms: No SOB: No COPD: No Home Oxygen Therapy: No Hx Pneumonia: No Hx Sleep Apnea: No - Cardiovascular System Hx Hypertension: No Hx Coronary Artery Disease: No Hx Heart Attack/AMI: No Hx Angina: No Hx Percutaneous Transluminal Coronary Angioplasty (PTCA): No Hx Cardia Arrhythmia: No Hx Pacemaker: No Hx Internal Defibrillator: No Hx Valvular Heart Disease: No Hx Heart Murmur: No Hx Peripheral Vascular Disease: No - Central Nervous System Hx Neuromuscular Disorder: No Hx Seizures: No CVA: No Hx Back Pain: No Hx Psychiatric Problems: No - Gastrointestinal Hx Ulcer: No Hx Gastroesophageal Reflux Disease: No - Endocrine Hx Renal Disease: No Hx End Stage Renal Disease: No Hx Cirrhosis: Yes (HEP C) Hx Liver Disease: No Hx Insulin Dependent Diabetes: No Hx Non-Insulin Dependent Diabetes: Yes Hx Thyroid Disease: No Hx Hypothyroidism: No Hx Hyperthyroidism: No - Hematic Hx Anemia: Yes Hx Sickle Cell Disease: No - Other Systems Hx Alcohol Use: Yes (hx:no ETOH since 1991) Hx Substance Use: No Hx Cancer: No Hx Obesity: No
--- NOTE | 2020-03-30 14:28 | Anesthesia Day of Surgery ---
Anesthesia Day of Surgery - Day of Surgery Patient Examined: Yes Patient H&P Reviewed: Yes Patient is NPO: Yes Beta Blockers: No
[2020-03-30] MEDS ORDERED: ONDANSETRON 4 MG/2 ML INJ ONE (14:54)
[2020-03-30] MEDS ORDERED: propofoL 200 MG/20 ML VIAL IV ONE ×2 (14:54→15:02)
--- NOTE | 2020-03-30 14:55 | Cat Scan Report ---
CT lower extremity LT wo con INDICATION: left hip pain r/o hip fx. TECHNIQUE: All CT scans at this location are performed using CT dose reduction for ALARA by means of automated e xposure control. COMPARISON: Left hip x-ray 03/24/2020 FINDINGS: Scan limited by motion artifact. No displaced fracture left hip. Mild/moderate degenerative arthrosis left hip. IMPRESSION: 1. No displaced left hip fracture. 2. Left hip arthrosis Signer Name: Tano Rodriguez MD Signed: 03/30/2020 2:50 PM Workstation Name: [id number]
--- NOTE | 2020-03-30 15:20 | Post Operative Note ---
Pre-op diagnosis: gi bleed Post-op diagnosis: same Findings: EGD: hiatal hernia - gastritis - negative other Colon: poor prep, completed - no obvious pathology noted Procedure: EGD/colon Anesthesia: MAC Surgeon: MILANA SHEEHAN Estimated blood loss: none Pathology: list Specimen disposition: to lab Condition: stable Disposition: floor
--- NOTE | 2020-03-30 15:40 | Vascular Lab Report ---
VL venous duplex LE LT INDICATION / CLINICAL INFORMATION: left hip and leg pain, r/o DVT. COMPARISON: None available. FINDINGS: No evidence of deep vein thrombosis. Signer Name: Alex Nguyen MD Signed: 03/30/2020 3:36 PM Workstation Name: [id number]
[2020-03-30] MEDS: ACETAMINOPHEN 325 MG TAB PO PRN ×2 (16:34→22:43)
--- NOTE | 2020-03-30 16:39 | Operative Report ---
INDICATIONS: 1. Anemia. 2. Gastrointestinal bleed. MEDICATIONS: Propofol per MEDICAL RECORDS CODER. COMPLICATIONS: None. DESCRIPTION OF PROCEDURE: The patient brought to procedure suite. The patient had the procedure discussed with him at length. All risks, complications, and benefits discussed after which the patient signed for the procedure performed. The patient was placed in left lateral decubitus position. Mouth block was placed in the patient's oral cavity. After adequate sedation medication as above, endoscope placed in the mouth and brought to level of the second portion of duodenum. Retroflexion view performed. The patient's vital signs remained stable throughout the procedure. FINDINGS: There is a small hiatal hernia at GE junction at 38 cm from the gums.Noted white material esophagus, possible Debbi, biopsied.The esophagus otherwise appeared to be normal. Mild gastritis noted in the stomach scattered. The stomach otherwise appeared to be normal. The duodenum appeared to be normal. Retroflexion view performed in the stomach showed no other pathology other than noted above. The patient tolerated the procedure well. No complications at end of the procedure. IMPRESSION: 1. Hiatal hernia. 2. Possible Debbi (bx's) 3. Mild gastritis. 4. Otherwise, normal EGD. RECOMMENDATIONS: 1. PPI daily. 2. Follow hematocrit and transfuse as needed. 3. Colonoscopy followup, further recommendation based on colonoscopy results. JOB# [id number] [facility]
--- NOTE | 2020-03-30 16:52 | Operative Report ---
PROCEDURE: Colonoscopy. INDICATIONS: 1. Anemia. 2. Gastrointestinal bleed. 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 COMPLICATIONS: None. DESCRIPTION OF PROCEDURE: The patient brought to procedure suite. The patient had the procedure discussed with him at length. All risks, complications, and benefits discussed after which the patient signed for the procedure performed. The patient was placed in left lateral decubitus position. Rectal exam performed prior to insertion of the scope. After the adequate sedation medication as above, scope was introduced into the rectum and brought to the level of the cecum. Colonoscope was then removed and mucosa visualized. Prep quality was very poor. The patient's vital signs remained stable throughout the procedure. FINDINGS: This was a very poor prep, but completed the procedure. Cannot rule out small to medium lesions. There were no obvious mass lesions or polyps noted during this procedure. Due to the poor prep nature, may not be able to rule out small AVMs. No obvious signs of bleeding was noted. No old blood was needed. The patient tolerated the procedure well. Medium internal hemorrhoids. No complications during the procedure. IMPRESSION: 1. Poor prep and so cannot rule out small lesions as well as possible small to medium AVMs. 2. Procedure completed. 3. Internal hemorrhoids. 4. Also noted small scattered diverticulosis. RECOMMENDATIONS: 1. Follow hematocrit and transfuse as needed. 2. PPI daily. 3. Advance diet. 4. Okay to discharge from GI standpoint with followup as an outpatient. JOB# [id number] [facility]
[2020-03-31] MEDS: hydrALAZINE 20 MG/1 ML INJ IV PRN (04:31)
[2020-03-31 06:25] LABS: Albumin 2.8 g/dL (3.8-4.8); Gamma Globulin 1.6 g/dL (0.8-1.7)
[2020-03-31 07:41] LABS: Hematocrit 23.8 % (35.5-45.6); Hemoglobin 7.9 gm/dl (11.8-15.2); Mean Corpuscular HGB Conc 33 % (32-34); Mean Corpuscular Volume 87 fl (84-94); Platelet Count 424 K/mm3 (140-440); Red Blood Count 2.74 M/mm3 (3.65-5.03); Red Cell Distribution Width 19.6 % (13.2-15.2)
[2020-03-31 07:59] LABS: Blood Urea Nitrogen 13 mg/dL (9-20); Calcium 8.5 mg/dL (8.4-10.2); Hemolysis Index 12
[2020-03-31 08:08] LABS: BUN/Creatinine Ratio 19
--- NOTE | 2020-03-31 08:34 | Hem/Onc Progress Note ---
Subjective Interval history: heme data review 64yo man with h/o AVM, chronic iron deficiency, now with acute ITP exacerbation and severe anemia, maybe AIHA s/p steroid pulse, s/p IVIG x 2 doses, has had several RBC transfusions last week no overt bleeding in hospital plt count high now no overt bleeding EGD/colon: no cause of bleeding found, no pathology found DATA REVIEWED BELOW IMPRESSION: recent severe anemia, maybe autoimmune hemolysis vs. bleeding heme malignancy is possible, but not proven (e.g. myelofibrosis or MDS) 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, s/p IVIG x 2 doses and steroid pulse persistent L hip pain, cause unknown RECOMMEND: hemoglobin electrophoresis OK to plan discharge--> will try for outpt televisit hematology f/u after discharge steroid taper over a few days Laboratory Last Values WBC 12.5 K/mm3 (4.5-11.0) H 03/31/20 06:40 Hgb 7.9 gm/dl (11.8-15.2) L 03/31/20 06:40 Hct 23.8 % (35.5-45.6) L 03/31/20 06:40 Plt Count 424 K/mm3 (140-440) 03/31/20 06:40 Crossmatch See Detail 03/27/20 20:00 Objective - Constitutional Vitals: Last Vital Signs Temp 98.0 F 03/31/20 04:06 Pulse 85 03/31/20 04:06 Resp 18 03/31/20 04:06 BP 185/94 03/31/20 04:06 Pulse Ox 98 03/31/20 04:06 - Labs Lab Results: Laboratory Results - last 24 hr 03/27/20 03/30/20 03/31/20 06:51 15:41 06:40 WBC 12.5 H RBC 2.74 L Hgb 7.9 L Hct 23.8 L MCV 87 MCH 29 MCHC 33 RDW 19.6 H Plt Count 424 Sodium Potassium Chloride Carbon Dioxide Anion Gap BUN Creatinine Estimated GFR BUN/Creatinine Ratio Glucose POC Glucose 102 Calcium Serum Total Protein 5.7 L Albumin 2.8 L Tnmcw-3-Avtrbcxff 0.3 Wvhez-3-Bkgneafma 0.4 L Beta Globulins 0.2 Gamma Globulins 1.6 Abnorm Protein Band 1 see below PEP Interpretation see below H 03/31/20 06:40 WBC RBC Hgb Hct MCV MCH MCHC RDW Plt Count Sodium 136 L Potassium 4.2 D Chloride 100.9 Carbon Dioxide 29 Anion Gap 10 BUN 13 Creatinine 0.7 L Estimated GFR > 60 BUN/Creatinine Ratio 19 Glucose 428 H POC Glucose Calcium 8.5 Serum Total Protein Albumin Zsuzq-2-Mywqfalkm Xdbls-8-Itrzjwjrp Beta Globulins Gamma Globulins Abnorm Protein Band 1 PEP Interpretation Medications & Allergies - Medications Allergies/Adverse Reactions: Allergies No Known Allergies Allergy (Verified 08/27/17 07:25) Home Medications: Home Medications Medication Instructions Recorded Confirmed Last Taken Type Folic Acid [Folvite] 1 mg PO QDAY 30 Days #30 tablet 02/17/19 03/24/20 03/23/20 Rx Ferrous Sulfate [Feosol 325 MG tab] 325 mg PO BID #60 tablet 09/08/19 03/24/20 03/23/20 Rx Pantoprazole [Protonix TAB] 40 mg PO BID 60 Days #30 tablet 09/08/19 03/24/20 Unknown Rx Acetaminophen [Acetaminophen TAB] 1,000 mg PO Q6HR PRN #30 tablet 02/07/20 03/28/20 Unknown Rx Active Medications: Generic Name Dose Route Start Last Admin Trade Name Freq PRN Reason Stop Dose Admin Acetaminophen 650 mg 03/26/20 11:00 03/30/20 22:43 Acetaminophen 325 Mg Tab PO 650 mg Q4H PRN Administration Pain, Mild (1-3) Diphenhydramine HCl 25 mg 03/26/20 11:00 03/27/20 21:18 Diphenhydramine 50 Mg/Ml Vial IV 25 mg Q6H PRN Administration Rash Hydralazine HCl 5 mg 03/29/20 06:16 03/31/20 04:31 Hydralazine 20 Mg/1 Ml Inj IV 5 mg Q6HR PRN Administration Hypertension Sodium Chloride 500 mls @ 0 mls/hr 03/27/20 17:34 Nacl 0.9% 500 Ml IV ONCE LUCIAN As Directed Pantoprazole Sodium 40 mg 03/27/20 07:30 03/30/20 08:15 Pantoprazole 40 Mg Tab PO Not Given QDAC LUCIAN Prednisone 40 mg 03/29/20 10:00 03/30/20 16:34 Prednisone 20 Mg Tab PO 40 mg QDAY LUCIAN Administration
[2020-03-31 08:35] LABS: Band Neutrophils # (Manual) 0.1 K/mm3; Total Cells Counted 100
[2020-03-31 08:36] LABS: Anisocytosis 1+; Hypochromasia 1+; Poikilocytosis 1+
[2020-03-31 08:37] LABS: Platelet Estimate Consistent w Auto; Schistocytes Rare; Tear Drop Cells Few
--- NOTE | 2020-03-31 09:24 | Progress Note ---
Assessment and Plan Assessment and plan: 64 years old male with history of diabetes and chronic anemia with multiple blood transfusions and colonoscopies and endoscopies before. 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 "Uqdnk-Nbcem-Wihsb/HHT" syndrome, ? ITP Left hip pain lower GI bleed Etiology probably secondary to AVMs GI following T2DM (type 2 diabetes mellitus) Coverage for now Check hemoglobin A1c DVT prophylaxis 03/25/2020 GI consult appreciated Patient is thrombocytopenic Hematology consult requested Hemoglobin improved to 7.5 03/26/2020 Hemoglobin again dropped to 6.4 Platelet count also dropped to about 14,000 03/27. Cont. IVIG for therombocytopenia. PRBCs as needed. Endoscopy when plt > 50. F/U electrophoresis and SPEP 03/28. Continue IVIG and pulse steroids per hematology recommendations. Probable autoimmune hemolytic anemia/ITP. GI evaluation when platelets greater than 50,000. Bone marrow biopsy per hematology. 03/29. Patient is s/p IVIG x2 doses and pulse dosed steroids. Start steroid taper per hematology and okay for endoscopy per hematology. Bone marrow biopsy and endoscopy may be done as an outpatient. Anticipate discharge in a.m. 03/30. Patient complains of left hip pain which has limited his mobility. Check CT scan of the hip to rule out fracture. Left hip plain films were negative on admission. Consider Ortho evaluation. PT/OT evaluation after imaging. EGD/colonoscopy today per GI for anemia. 03/31. GI reports EGD revealed hiatal hernia and gastritis but otherwise normal. Colonoscopy showed no obvious pathology. Hematology reports anemia likely secondary to autoimmune hemolysis versus bleeding that is now resolved. Thrombocytopenia likely secondary to ITP. Patient is s/p IVIG x2 doses and steroid pulse therapy. CT scan of hip negative for fracture. Patient potentially may discharge home if cleared by PT. Hematology outpatient follow- up. History Interval history: No new issues Hospitalist Physical - Constitutional Vitals: Temp Pulse Resp BP Pulse Ox 98.0 F 85 18 185/94 98 03/31/20 04:06 03/31/20 04:06 03/31/20 04:06 03/31/20 04:06 03/31/20 04:06 General appearance: Present: no acute distress, well-nourished - EENT Eyes: Present: PERRL, EOM intact ENT: hearing intact, clear oral mucosa, dentition normal - Neck Neck: Present: supple, normal ROM - Respiratory Respiratory effort: normal Respiratory: bilateral: CTA - Cardiovascular Rhythm: regular Heart Sounds: Present: S1 & S2. Absent: gallop, rub - Extremities Extremities: no ischemia, No edema, Full ROM - Abdominal General gastrointestinal: soft, non-tender, non-distended, normal bowel sounds - Integumentary Integumentary: Present: clear, warm, dry - Neurologic Neurologic: CNII-XII intact, moves all extremities HEART Score - HEART Score Troponin: Troponin T < 0.010 ng/mL (0.00-0.029) 03/24/20 13:33 Results - Labs CBC & Chem 7: 03/31/20 06:40 03/31/20 06:40 Labs: Laboratory Last Values WBC 12.5 K/mm3 (4.5-11.0) H 03/31/20 06:40 RBC 2.74 M/mm3 (3.65-5.03) L 03/31/20 06:40 Hgb 7.9 gm/dl (11.8-15.2) L 03/31/20 06:40 Hct 23.8 % (35.5-45.6) L 03/31/20 06:40 MCV 87 fl (84-94) 03/31/20 06:40 MCH 29 pg (28-32) 03/31/20 06:40 MCHC 33 % (32-34) 03/31/20 06:40 RDW 19.6 % (13.2-15.2) H 03/31/20 06:40 Plt Count 424 K/mm3 (140-440) 03/31/20 06:40 Add Manual Diff Complete 03/31/20 06:40 Total Counted 100 03/31/20 06:40 Seg Neuts % (Manual) 88.0 % (40.0-70.0) H 03/31/20 06:40 Band Neutrophils % 1.0 % 03/31/20 06:40 Lymphocytes % (Manual) 7.0 % (13.4-35.0) L 03/31/20 06:40 Monocytes % (Manual) 3.0 % (0.0-7.3) 03/31/20 06:40 Eosinophils % (Manual) 2.0 % (0.0-4.3) 03/26/20 06:59 Metamyelocytes % 1.0 % 03/31/20 06:40 Nucleated RBC % 5.0 % (0.0-0.9) H 03/31/20 06:40 Seg Neutrophils # Man 11.0 K/mm3 (1.8-7.7) H 03/31/20 06:40 Band Neutrophils # 0.1 K/mm3 03/31/20 06:40 Lymphocytes # (Manual) 0.9 K/mm3 (1.2-5.4) L 03/31/20 06:40 Abs React Lymphs (Man) 0.0 K/mm3 03/31/20 06:40 Monocytes # (Manual) 0.4 K/mm3 (0.0-0.8) 03/31/20 06:40 Eosinophils # (Manual) 0.0 K/mm3 (0.0-0.4) 03/31/20 06:40 Basophils # (Manual) 0.0 K/mm3 (0.0-0.1) 03/31/20 06:40 Metamyelocytes # 0.1 K/mm3 03/31/20 06:40 Myelocytes # 0.0 K/mm3 03/31/20 06:40 Promyelocytes # 0.0 K/mm3 03/31/20 06:40 Blast Cells # 0.0 K/mm3 03/31/20 06:40 WBC Morphology Not Reportable 03/31/20 06:40 Hypersegmented Neuts Not Reportable 03/31/20 06:40 Hyposegmented Neuts Not Reportable 03/31/20 06:40 Hypogranular Neuts Not Reportable 03/31/20 06:40 Smudge Cells Not Reportable 03/31/20 06:40 Toxic Granulation Not Reportable 03/31/20 06:40 Toxic Vacuolation Not Reportable 03/31/20 06:40 Dohle Bodies Not Reportable 03/31/20 06:40 Pelger-Huet Anomaly Not Reportable 03/31/20 06:40 Katia Rods Not Reportable 03/31/20 06:40 Platelet Estimate Consistent w auto 03/31/20 06:40 Clumped Platelets Not Reportable 03/31/20 06:40 Plt Clumps, EDTA Not Reportable 03/31/20 06:40 Large Platelets Not Reportable 03/31/20 06:40 Giant Platelets Not Reportable 03/31/20 06:40 Platelet Satelliting Not Reportable 03/31/20 06:40 Plt Morphology Comment Not Reportable 03/31/20 06:40 RBC Morphology Not Reportable 03/31/20 06:40 Dimorphic RBCs Not Reportable 03/31/20 06:40 Polychromasia Few 03/31/20 06:40 Hypochromasia 1+ 03/31/20 06:40 Poikilocytosis 1+ 03/31/20 06:40 Anisocytosis 1+ 03/31/20 06:40 Microcytosis Not Reportable 03/31/20 06:40 Macrocytosis Not Reportable 03/31/20 06:40 Spherocytes Not Reportable 03/31/20 06:40 Pappenheimer Bodies Not Reportable 03/31/20 06:40 Sickle Cells Not Reportable 03/31/20 06:40 Target Cells Not Reportable 03/31/20 06:40 Tear Drop Cells Few 03/31/20 06:40 Ovalocytes Not Reportable 03/31/20 06:40 Helmet Cells Not Reportable 03/31/20 06:40 Suarez-Lamberton Bodies Not Reportable 03/31/20 06:40 [place] Rings Not Reportable 03/31/20 06:40 Luke Cells Not Reportable 03/31/20 06:40 Bite Cells Not Reportable 03/31/20 06:40 Crenated Cell Not Reportable 03/31/20 06:40 Elliptocytes Few 03/31/20 06:40 Acanthocytes (Spur) Not Reportable 03/31/20 06:40 Rouleaux Not Reportable 03/31/20 06:40 Hemoglobin C Crystals Not Reportable 03/31/20 06:40 Schistocytes Rare 03/31/20 06:40 Malaria parasites Not Reportable 03/31/20 06:40 Jl Bodies Not Reportable 03/31/20 06:40 Hem Pathologist Commnt No 03/31/20 06:40 PT 13.9 Sec. (12.2-14.9) 03/24/20 15:18 INR 1.09 (0.87-1.13) 03/24/20 15:18 APTT 23.6 Sec. (24.2-36.6) L 03/24/20 15:18 Sodium 136 mmol/L (137-145) L 03/31/20 06:40 Potassium 4.2 mmol/L (3.6-5.0) D 03/31/20 06:40 Chloride 100.9 mmol/L (98-107) 03/31/20 06:40 Carbon Dioxide 29 mmol/L (22-30) 03/31/20 06:40 Anion Gap 10 mmol/L 03/31/20 06:40 BUN 13 mg/dL (9-20) 03/31/20 06:40 Creatinine 0.7 mg/dL (0.8-1.3) L 03/31/20 06:40 Estimated GFR > 60 ml/min 03/31/20 06:40 BUN/Creatinine Ratio 19 % 03/31/20 06:40 Glucose 428 mg/dL (75-100) H 03/31/20 06:40 POC Glucose 102 mg/dL (70-105) 03/30/20 15:41 Calcium 8.5 mg/dL (8.4-10.2) 03/31/20 06:40 Magnesium 1.70 mg/dL (1.7-2.3) 03/30/20 05:33 Total Bilirubin 0.60 mg/dL (0.1-1.2) 03/24/20 13:33 AST 18 units/L (5-40) 03/24/20 13:33 ALT 11 units/L (7-56) 03/24/20 13:33 Alkaline Phosphatase 59 units/L (35-129) 03/24/20 13:33 Lactate Dehydrogenase 195 units/L (91-180) H 03/26/20 06:59 Troponin T < 0.010 ng/mL (0.00-0.029) 03/24/20 13:33 Serum Total Protein 5.7 g/dL (6.1-8.1) L 03/27/20 06:51 Total Protein 6.6 g/dL (6.3-8.2) 03/24/20 13:33 Albumin 2.8 g/dL (3.8-4.8) L 03/27/20 06:51 Albumin/Globulin Ratio 1.8 % 03/24/20 13:33 Rkdvl-4-Xjskzjiid 0.3 g/dL (0.2-0.3) 03/27/20 06:51 Qgnwm-9-Ohrqdsfht 0.4 g/dL (0.5-0.9) L 03/27/20 06:51 Beta Globulins 0.2 g/dL (0.2-0.5) 03/27/20 06:51 Gamma Globulins 1.6 g/dL (0.8-1.7) 03/27/20 06:51 Abnorm Protein Band 1 see below 03/27/20 06:51 PEP Interpretation see below H 03/27/20 06:51 Urine Color Yellow (Yellow) 03/24/20 14:23 Urine Turbidity Clear (Clear) 03/24/20 14:23 Urine pH 5.0 (5.0-7.0) 03/24/20 14:23 Ur Specific [place] 1.013 (1.003-1.030) 03/24/20 14:23 Urine Protein <15 mg/dl mg/dL (Negative) 03/24/20 14:23 Urine Glucose (UA) Neg mg/dL (Negative) 03/24/20 14:23 Urine Ketones Neg mg/dL (Negative) 03/24/20 14:23 Urine Blood Neg (Negative) 03/24/20 14:23 Urine Nitrite Neg (Negative) 03/24/20 14:23 Urine Bilirubin Neg (Negative) 03/24/20 14:23 Urine Urobilinogen 4.0 mg/dL (<2.0) 03/24/20 14:23 Ur Leukocyte Esterase Neg (Negative) 03/24/20 14:23 Urine WBC (Auto) 2.0 /HPF (0.0-6.0) 03/24/20 14:23 Urine RBC (Auto) 1.0 /HPF (0.0-6.0) 03/24/20 14:23 Urine Mucus Few /HPF 03/24/20 14:23 Nasal Screen MRSA (PCR) Negative (Negative) 03/25/20 09:01 Blood Type A POSITIVE 03/27/20 20:00 Antibody Screen Negative 03/27/20 20:00 Direct Antiglob Test Negative 03/25/20 00:40 SLIM, Poly Interpret Negative 03/25/20 00:40 Crossmatch See Detail 03/27/20 20:00 Parker/IV: Voiding Method Urinal IV Catheter Type [Left INT / Saline Lock Antecubital] IV Catheter Type [Left Forearm INT / Saline Lock ] IV Catheter Type [Right Hand] right EJ Active Medications - Current Medications Current Medications: Generic Name Dose Route Start Last Admin Trade Name Freq PRN Reason Stop Dose Admin Acetaminophen 650 mg 03/26/20 11:00 03/30/20 22:43 Acetaminophen 325 Mg Tab PO 650 mg Q4H PRN Administration Pain, Mild (1-3) Diphenhydramine HCl 25 mg 03/26/20 11:00 03/27/20 21:18 Diphenhydramine 50 Mg/Ml Vial IV 25 mg Q6H PRN Administration Rash Hydralazine HCl 5 mg 03/29/20 06:16 03/31/20 04:31 Hydralazine 20 Mg/1 Ml Inj IV 5 mg Q6HR PRN Administration Hypertension Sodium Chloride 500 mls @ 0 mls/hr 03/27/20 17:34 Nacl 0.9% 500 Ml IV ONCE LUCIAN As Directed Pantoprazole Sodium 40 mg 03/27/20 07:30 03/30/20 08:15 Pantoprazole 40 Mg Tab PO Not Given QDAC LUCIAN Prednisone 20 mg 03/31/20 10:00 Prednisone 20 Mg Tab PO QDAY LUCIAN Nutrition/Malnutrition Assess - Dietary Evaluation Nutrition/Malnutrition Findings: Nutrition Notes Start: 03/26/20 13:21 Freq: Status: Active Protocol: Document 03/30/20 14:04 CHULA (Rec: 03/30/20 14:16 CHULA [id number]) Co-Sign 03/30/20 14:04 LP Nutrition Notes Initial or Follow up Assessment Current Diagnosis Diabetes Other Pertinent Diagnosis lower GIB, chronic anemia, severe hip arthritis Current Diet NPO Labs/Tests K 3.4 Cr 0.6 BG 175 Pertinent Medications Prednisone NS at 50 ml/h for 1000 ml [place] Height 5 ft 6 in Weight 49.895 kg [place] Body Weight (kg) 64.54 BMI 17.7 Weight Status Underweight Subjective/Other Information LOS. 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 Spoke with RN, reported pt is very hungery, 100% intakes, plus three snacks yesterday. Once NPO is lifted, recommend double portions of diet order. Last order was for GI soft on 1/18/21. Pt does ambulate. Pt NPO for colonoscopy. Burn Absent Trauma Absent GI Symptoms None Current % PO Negligible Minimum of two criteria No #2 Nutrition Diagnosis Predicted suboptimal energy intake Etiology colonoscopy As Evidenced by Signs and Symptoms pt was NPO for procedure #1 Nutrition Diagnosis Underweight Etiology chronic disease As Evidenced by Signs and Symptoms pt has low BMI Is patient on ventilator? No Is Patient Ambulatory and/or Out of Bed Yes REE-([facility]-ambulatory/OOB) [ [id number] [id number]] Calculation Used for Recommendations [facility] Additional Notes Protein: 50-60 g (1-1.2 g/kg) Fluid: 1ml/kcal Nutrition Intervention Change Diet Order: advance diet once medically able Revisit per MD consult or patient Sign Off request:
--- NOTE | 2020-03-31 09:31 | Discharge Summary ---
Providers - Providers Date of Admission: 03/24/20 17:55 Date of discharge: 03/31/20 Attending physician: ESPINOZA GLASGOW 03/24/20 22:16 Consult to Physician [CONS] Routine Comment: Consulting Provider: ARCENIO HOLLEY Physician Instructions: Reason For Exam: GI bleed 03/25/20 21:42 Consult to Physician [CONS] Routine Comment: Consulting Provider: MILLI JON Physician Instructions: Reason For Exam: Thrombocytopenia 03/31/20 08:29 Physical Therapy Evaluation and Treat [CONS] Routine Comment: Reason For Exam: Left hip pain, difficulty ambulating Primary care physician: [employer] Hospitalization Reason for admission: anemia Condition: Stable Hospital course: 64-year-old male with past medical history significant for HCV, AVM, chronic iron deficiency and several hospitalizations during the past 6 years for severe anemia/thrombocytopenia admitted through the emergency department with diagnosis of symptomatic anemia/pancytopenia/lower GI bleed and left hip pain. The patient received a total of 6 units PRBCs during hospitalization and 2 units of platelet pheresis. Patient was seen by hematology and GI in consultation. Hospital course: 03/25/2020 GI consult appreciated Patient is thrombocytopenic Hematology consult requested Hemoglobin improved to 7.5 03/26/2020 Hemoglobin again dropped to 6.4 Platelet count also dropped to about 14,000 03/27. Cont. IVIG for therombocytopenia. PRBCs as needed. Endoscopy when plt > 50. F/U electrophoresis and SPEP 03/28. Continue IVIG and pulse steroids per hematology recommendations. Probable autoimmune hemolytic anemia/ITP. GI evaluation when platelets greater than 50,000. Bone marrow biopsy per hematology. 03/29. Patient is s/p IVIG x2 doses and pulse dosed steroids. Start steroid taper per hematology and okay for endoscopy per hematology. Bone marrow biopsy and endoscopy may be done as an outpatient. Anticipate discharge in a.m. 03/30. Patient complains of left hip pain which has limited his mobility. Check CT scan of the hip to rule out fracture. Left hip plain films were negative on admission. Consider Ortho evaluation. PT/OT evaluation after imaging. EGD/colonoscopy today per GI for anemia. 03/31. GI reports EGD revealed hiatal hernia and gastritis but otherwise normal. Colonoscopy showed no obvious pathology. Hematology reports anemia likely secondary to autoimmune hemolysis versus bleeding that is now resolved. Thrombocytopenia likely secondary to ITP. Patient is s/p IVIG x2 doses and steroid pulse therapy. CT scan of hip negative for fracture. Patient potentially may discharge home if cleared by PT. Hematology outpatient follow- up. The patient is to follow-up with hematology and GI as an outpatient. Dedicated discharge time 35 minutes. Disposition: DC-01 TO HOME OR SELFCARE Time spent for discharge: 35 - Discharge Diagnoses (1) Acute ITP Status: Acute (2) Anemia requiring transfusions Status: Acute (3) Symptomatic anemia Status: Acute (4) Thrombocytopenia Status: Acute (5) T2DM (type 2 diabetes mellitus) Status: Chronic Qualifiers: Diabetes mellitus skilled nursing insulin use: unspecified skilled nursing insulin use status (6) Diabetes Status: Acute (7) History of hepatitis C Status: Acute (8) Iron deficiency Status: Acute Core Measure Documentation - Palliative Care Palliative Care/ Comfort Measures: Not Applicable - Core Measures Any of the following diagnoses?: none Exam - Constitutional Vitals: Temp Pulse Resp BP Pulse Ox 98.0 F 85 18 185/94 98 03/31/20 04:06 03/31/20 04:06 03/31/20 04:06 03/31/20 04:06 03/31/20 04:06 General appearance: Present: no acute distress, well-nourished - EENT Eyes: Present: PERRL ENT: hearing intact, clear oral mucosa - Neck Neck: Present: supple, normal ROM - Respiratory Respiratory effort: normal Respiratory: bilateral: CTA - Cardiovascular Heart Sounds: Present: S1 & S2. Absent: rub, click - Extremities Extremities: pulses symmetrical, No edema Peripheral Pulses: within normal limits - Abdominal General gastrointestinal: Present: soft, non-tender, non-distended, normal bowel sounds Male genitourinary: Present: normal - Integumentary Integumentary: Present: clear, warm, dry - Musculoskeletal Musculoskeletal: gait normal, strength equal bilaterally - Psychiatric Psychiatric: appropriate mood/affect, intact judgment & insight - Neurologic Neurologic: CNII-XII intact, moves all extremities Plan Activity: advance as tolerated Weight Bearing Status: Weight Bear as Tolerated Durable Medical Equipment Needed Upon Discharge: Walker-Rolling Follow up with: THAD FUCHS MD [Primary Care Provider] - 3-5 Days MILLI JON MD [Staff Physician] - 7 Days MILANA SHEEHAN MD [Staff Physician] - 7 Days
[2020-03-31] MEDS ORDERED: predniSONE 20 MG TAB PO SCH (10:00)
[2020-03-31] MEDS: PANTOPRAZOLE 40 MG TAB PO SCH (10:44)
[2020-03-31 12:14] VITALS: BP 155/69
[2020-04-02 13:14] LABS: Hemoglobin A2 Prime SEE SCANNED RESULT; Hemoglobin Barts SEE SCANNED RESULT; Hemoglobin E SEE SCANNED RESULT; Hemoglobin G SEE SCANNED RESULT; Hemoglobin Lepore SEE SCANNED RESULT; Hemoglobin O-Arab SEE SCANNED RESULT; IEF Confirm SEE SCANNED RESULT; Sickle Solubility Test SEE SCANNED RESULT
[2020-04-02 13:15] LABS: Interpretation SEE SCANNED RESULT
== END 2020-03-31 14:10 | disposition home or self-care (01) | DRG 378 ==
LOC: ED 11:08 → 4A 17:55
PROVIDERS: ADMIT Internal Medicine; ATTEND Hospitalist
PROC: 30233N1 Transfusion of Nonautologous Red Blood Cells into Peripheral Vein, Percutaneous Approach (ICD-10-PCS; principal; 2020-03-24)
PROC: 30233R1 Transfusion of Nonautologous Platelets into Peripheral Vein, Percutaneous Approach (ICD-10-PCS; 2020-03-26)
PROC: 0DB58ZX Excision of Esophagus, Via Natural or Artificial Opening Endoscopic, Diagnostic (ICD-10-PCS; 2020-03-30)
PROC: 0DJD8ZZ Inspection of Lower Intestinal Tract, Via Natural or Artificial Opening Endoscopic (ICD-10-PCS; 2020-03-30)
DX: K29.71 Gastritis, unspecified, with bleeding (principal); D69.3 Immune thrombocytopenic purpura; D50.0 Iron deficiency anemia secondary to blood loss (chronic); E11.9 Type 2 diabetes mellitus without complications; F17.210 Nicotine dependence, cigarettes, uncomplicated; Z82.49 Family history of ischemic heart disease and other diseases of the circulatory system; D69.6 Thrombocytopenia, unspecified; K44.9 Diaphragmatic hernia without obstruction or gangrene; K64.8 Other hemorrhoids; K57.30 Diverticulosis of large intestine without perforation or abscess without bleeding
CPT/HCPCS: 36415; 71046; 80048; 80053; 81001; 82962; 83615; 83735; 84165; 84484; 85007; 85014; 85018; 85025; 85027; 85049; 85610; 85730; 86850; 86880; 86900; 86901; 87641; 88305; 90686; 90732; 93005; 96374; 96375; 96376; G0378; C9113; J0360; J1200; J2270; J2405; J2704; J2930; J7030; J7040; J7512; P9016; P9035

== ENCOUNTER 2020-08-17 17:20 | Inpatient (IN) | payer MEDICAID, OTHER ==
--- NOTE | 2020-08-17 19:16 | Emergency Department Report ---
ED Recheck HPI - General Chief Complaint: Recheck/Abnormal Lab/Rx Stated Complaint: TRANFUSION Time Seen by Provider: 08/17/20 19:11 Source: patient Mode of arrival: Ambulatory Limitations: No Limitations - History of Present Illness Initial Comments: Patient is a 64-year-old male that presents emergency room with complaints of lightheadedness and anemia. Patient states he went to his primary care office because he had some lightheadedness. Patient dates his primary care checked his CBC and he was found to be anemic with a hemoglobin of 2.6. Patient had a repeat CBC and it was found to be 2.8. Patient was then sent to the emergency room for further evaluation treatment. Patient's blood glucose at the office was 323. They were unable to run an A1c because hemoglobin is too low. Patient's blood pressure at the office was 104/54 and 105/59 patient heart rate was 107. Patient states lightheadedness better with rest and worse with exertio n. Patient states he had a history of anemia and requiring transfusions. Patient states is not sure why he is anemic. Patient states he is not on iron tabs at this time. Patient states he has history of diabetes. Patient denies recent travel. Patient denies recent international travel. Patient denies exposure to the novel coronavirus. Patient denies sick contacts. Patient denies fever and chills. Patient denies cough. Patient denies diarrhea. Patient denies coming in contact with anybody with symptoms of the novel coronavirus. Complaint: abnormal lab -: Sudden Associated Symptoms: none - Related Data Previous Rx's Medication Instructions Recorded Last Taken Type Acetaminophen [Acetaminophen TAB] 1,000 mg PO Q6HR PRN #30 tablet 02/07/20 Unknown Rx Ferrous Sulfate [Feosol 325 MG tab] 325 mg PO BID #60 tablet 03/31/20 Unknown Rx Folic Acid [Folvite] 1 mg PO QDAY 30 Days #30 tablet 03/31/20 Unknown Rx Pantoprazole [Protonix TAB] 40 mg PO BID 60 Days #30 tablet 03/31/20 Unknown Rx predniSONE 10 mg PO QDAY #21 tab 03/31/20 Unknown Rx Allergies Allergy/AdvReac Type Severity Reaction Status Date / Time No Known Allergies Allergy Verified 08/27/17 07:25 ED Review of Systems ROS: Stated complaint: TRANFUSION Other details as noted in HPI Constitutional: denies: chills, fever Eyes: denies: eye pain, eye discharge, vision change ENT: denies: ear pain, throat pain Respiratory: denies: cough, shortness of breath, wheezing Cardiovascular: denies: chest pain, palpitations Endocrine: no symptoms reported Gastrointestinal: denies: abdominal pain, nausea, diarrhea Genitourinary: denies: urgency, dysuria Musculoskeletal: denies: back pain, joint swelling, arthralgia Skin: denies: rash, lesions Neurological: as per HPI. denies: headache, weakness, paresthesias Psychiatric: denies: anxiety, depression Hematological/Lymphatic: denies: easy bleeding, easy bruising ED Past Medical Hx - Past Medical History Previous Medical History?: Yes Hx Hypertension: No Hx Heart Attack/AMI: No Hx Congestive Heart Failure: No Hx Diabetes: Yes Hx Liver Disease: No Hx Renal Disease: No Hx Sickle Cell Disease: No Hx Arthritis: Yes Hx Seizures: No Hx Asthma: No Hx COPD: No Hx Dementia: No Hx HIV: No Additional medical history: ANEMIA. Proximal gut and multiple colon AVM's (endoscopy/colonoscopy March 2017). hep C - Surgical History Past Surgical History?: No Hx Pacemaker: No Hx Internal Defibrillator: No - Family History Family history: no significant - Social History Smoking Status: Current Every Day Smoker Substance Use Type: None - Medications Home Medications: Home Medications Medication Instructions Recorded Confirmed Last Taken Type Acetaminophen [Acetaminophen TAB] 1,000 mg PO Q6HR PRN #30 tablet 02/07/20 03/28/20 Unknown Rx Ferrous Sulfate [Feosol 325 MG tab] 325 mg PO BID #60 tablet 03/31/20 Unknown Rx Folic Acid [Folvite] 1 mg PO QDAY 30 Days #30 tablet 03/31/20 Unknown Rx Pantoprazole [Protonix TAB] 40 mg PO BID 60 Days #30 tablet 03/31/20 Unknown Rx predniSONE 10 mg PO QDAY #21 tab 03/31/20 Unknown Rx ED Physical Exam - General Limitations: No Limitations General appearance: alert, in no apparent distress - Head Head exam: Present: atraumatic, normocephalic - Eye Eye exam: Present: normal appearance - ENT ENT exam: Present: mucous membranes moist - Neck Neck exam: Present: normal inspection - Respiratory Respiratory exam: Present: normal lung sounds bilaterally. Absent: respiratory distress - Cardiovascular Cardiovascular Exam: Present: regular rate, normal rhythm. Absent: systolic murmur, diastolic murmur, rubs, gallop - GI/Abdominal GI/Abdominal exam: Present: soft, normal bowel sounds - Rectal Rectal exam: Present: deferred - Extremities Exam Extremities exam: Present: normal inspection - Back Exam Back exam: Present: normal inspection - Neurological Exam Neurological exam: Present: alert, oriented X3 - Psychiatric Psychiatric exam: Present: normal affect, normal mood - Skin Skin exam: Present: warm, dry, intact, normal color. Absent: rash ED Course Vital Signs 08/17/20 08/17/20 18:53 20:27 Temperature 98.3 F Pulse Rate 104 H 101 H Respiratory 16 21 Rate Blood Pressure 88/37 105/56 [Left] O2 Sat by Pulse 94 97 Oximetry - Reevaluation(s) Reevaluation #1: Patient was initially hypotensive and patient blood pressure improved on its own. Patient blood pressure monitoring adjust treatment as needed. 08/17/20 19:27 Reevaluation #2: I discussed all results with patient. I discussed plan of care with patient. Patient agrees with plan of care and admission. Patient to be admitted to the hospitalist service. 08/17/20 19:58 - Consultations Consultation #1: Hospitalist consulted for admission. Hospitalist to admit patient. 08/17/20 20:10 ED Recheck MDM - Differential Diagnosis Anemia, lab error, lightheadedness - Medical Decision Making Patient is 64-year-old male presents emergency room with complaints of lightheadedness and anemia. Patient has history of anemia requiring transfusion. Patient's hemoglobin at his primary care's office was 2.6 and 2.8 on 2 separate rechecks today. Patient found to be hypoxic and tachycardiac in the ER. Patient was sent here for evaluation by her primary care provider patient had labs done which showed anemia on her CBC. Patient's hemoglobin 3.5. Patient typed and crossed and transfused 1 unit. Patient's chemistries unremarkable. Patient admitted to the hospital service for evaluation treatment. Critical care time documented due to the multiple reassessments, prolonged time at the bedside, interpretation of diagnostics and labs. Critical Care Time: Yes Critical care time in (mins) excluding proc time.: 35 Critical care attestation.: If time is entered above; I have spent that time in minutes in the direct care of this critically ill patient, excluding procedure time. Critical Care Time: 35 MINUTES ED Disposition Clinical Impression: Anemia requiring transfusions, Lightheadedness Anemia Qualifiers: Anemia type: unspecified type Qualified Code(s): D64.9 - Anemia, unspecified Hypotension Qualifiers: Hypotension type: unspecified hypotension type Qualified Code(s): I95.9 - Hypotension, unspecified Disposition: 09 OP ADMIT IP TO THIS HOSP Is pt being admited?: Yes Does the pt Need Aspirin: No Condition: Critical Time of Disposition: 20:11
[2020-08-17 19:38] LABS: Mean Corpuscular HGB Conc 28 % (32-34); Platelet Count 432 K/mm3 (140-440); Red Blood Count 2.11 M/mm3 (3.65-5.03)
[2020-08-17 19:47] LABS: Hematocrit 12.8 % (35.5-45.6); Hemoglobin 3.5 gm/dl (11.8-15.2); Mean Corpuscular Volume 61 fl (84-94); Red Cell Distribution Width 23.2 % (13.2-15.2)
[2020-08-17] MEDS ORDERED: SODIUM CHLORIDE 0.9% 500 ML 500 ML IV ONE ×3 (19:54→20:27)
[2020-08-17 19:57] LABS: BUN/Creatinine Ratio 18; Blood Urea Nitrogen 14 mg/dL (9-20); Calcium 8.3 mg/dL (8.4-10.2); Hemolysis Index 0
[2020-08-17] MEDS ORDERED: ALBUTEROL 2.5 MG/3 ML NEBU IH PRN (20:01)
[2020-08-17] MEDS ORDERED: ONDANSETRON 4 MG/2 ML INJ IV PRN (20:01)
[2020-08-17] MEDS ORDERED: ACETAMINOPHEN 325 MG TAB PO PRN (20:01)
--- NOTE | 2020-08-17 20:05 | History and Physical Report ---
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 Pt reports "I feel weak and lightheaded". Pt states that he has experienced weakness and lightheadedness ov er the past 1 week. Pt was seen and evaluated by his PCP and was found to have Symptomatic anemia with a hemoglobin of 2.6. Pt was instructed to seen further care at [facility]. Pt transported to [facility] via private vehicle for further care and evaluation of the aforementioned symptoms. Pt seen and evaluated in ED. All labs and imaging studies reviewed. Pt found to have symptomatic anemia with a hemoglobin of 3.5 as well as systolic blood pressure of 99 mmHg. Pt placed in observation status and admitted to medical floor. Pt transfused with PRBC. Patient denies fever, chills, chest pain, palpitation, productive cough, skin rash, recent ill contact, or known exposure to COVID-19, bright red blood per re ctum, melanotic stool, recent ill contacts. Advanced care planning conducted in ED. Past History Past Medical History: diabetes, GERD, hepatitis, other (see HPI) Past Surgical History: No surgical history, Other (reviewed) Social history: single, smoking. denies: alcohol abuse, prescription drug abuse Family history: diabetes, hypertension Medications and Allergies Allergies Allergy/AdvReac Type Severity Reaction Status Date / Time No Known Allergies Allergy Verified 08/27/17 07:25 Home Medications Medication Instructions Recorded Confirmed Last Taken Type Acetaminophen [Acetaminophen TAB] 1,000 mg PO Q6HR PRN #30 tablet 02/07/20 03/28/20 Unknown Rx Ferrous Sulfate [Feosol 325 MG tab] 325 mg PO BID #60 tablet 03/31/20 Unknown Rx Folic Acid [Folvite] 1 mg PO QDAY 30 Days #30 tablet 03/31/20 Unknown Rx Pantoprazole [Protonix TAB] 40 mg PO BID 60 Days #30 tablet 03/31/20 Unknown Rx predniSONE 10 mg PO QDAY #21 tab 03/31/20 Unknown Rx Active Meds: Active Medications Acetaminophen (Acetaminophen 325 Mg Tab) 650 mg PO Q4H PRN PRN Reason: Pain MILD(1-3)/Fever >100.5/DURÁN Albuterol (Albuterol 2.5 Mg/3 Ml Nebu) 2.5 mg IH Q4HRT PRN PRN Reason: Shortness Of Breath Ondansetron HCl (Ondansetron 4 Mg/2 Ml Inj) 4 mg IV Q8H PRN PRN Reason: Nausea And Vomiting Sodium Chloride (Sodium Chloride 0.9% 10 Ml Flush Syringe) 10 ml IV BID LUCIAN Sodium Chloride (Sodium Chloride 0.9% 10 Ml Flush Syringe) 10 ml IV PRN PRN PRN Reason: LINE FLUSH Review of Systems Constitutional: weakness, no weight loss, no weight gain, no chills, no sweats Ears, nose, mouth and throat: no ear pain, no tinnitis, no decreased hearing, no nose pain, no nasal discharge, no sinus pressure Cardiovascular: no chest pain, no palpitations, no edema, no syncope, no lightheadedness Respiratory: no cough, no cough with sputum, no hemoptysis, no shortness of breath Gastrointestinal: no abdominal pain, no vomiting, no diarrhea, no constipation, no change in bowel habits Genitourinary Male: no hematuria, no flank pain, no nocturia, no incontinence, no erectile dysfunction Rectal: no pain, no incontinence, no bleeding Musculoskeletal: no neck stiffness, no low back pain Integumentary: no rash, no redness, no sores, no wounds, no jaundice Neurological: no transient paralysis, no weakness, no parathesias, no numbness, no seizures, no syncope, no ataxia Psychiatric: no anxiety, no memory loss, no change in sleep habits, no insomnia, no change in appetite, no change in libido Endocrine: no cold intolerance, no polyphagia, no polydipsia, no polyuria, no nocturia, no excessive sweating Hematologic/Lymphatic: no easy bruising, no easy bleeding Allergic/Immunologic: no urticaria, no wheezing Exam - Constitutional Vitals: Temp Pulse Resp BP Pulse Ox 98.3 F 104 H 16 88/37 94 08/17/20 18:53 08/17/20 18:53 08/17/20 18:53 08/17/20 18:53 08/17/20 18:53 General appearance: Present: mild distress - EENT Eyes: Present: PERRL (conjunctival pallor) ENT: hearing intact, clear oral mucosa - Neck Neck: Present: supple, normal ROM - Respiratory Respiratory effort: normal Respiratory: bilateral: CTA - Cardiovascular Heart Sounds: Present: S1 & S2. Absent: rub, click - Extremities Extremities: pulses symmetrical, No edema Peripheral Pulses: within normal limits - Abdominal General gastrointestinal: Present: soft, non-tender, non-distended, normal bowel sounds Male genitourinary: Present: normal - Integumentary Integumentary: Present: clear, warm, dry - Musculoskeletal Musculoskeletal: gait normal, strength equal bilaterally - Psychiatric Psychiatric: appropriate mood/affect, intact judgment & insight - Neurologic Neurologic: CNII-XII intact, moves all extremities Results - Labs CBC & Chem 7: 08/17/20 19:23 08/17/20 19:23 Labs: Abnormal lab results 08/17/20 Range/Units 19:23 RBC 2.11 L (3.65-5.03) M/mm3 Hgb 3.5 L* (11.8-15.2) gm/dl Hct 12.8 L* (35.5-45.6) % MCV 61 L (84-94) fl MCH 17 L (28-32) pg MCHC 28 L (32-34) % RDW 23.2 H (13.2-15.2) % Assessment and Plan - Patient Problems (1) Anemia requiring transfusions Current Visit: Yes Status: Acute Plan to address problem: CBC, packed red blood cell transfusion, supportive care, repeat CBC in a.m. (2) Hypotension Current Visit: Yes Status: Acute Qualifiers: Hypotension type: unspecified hypotension type Qualified Code(s): I95.9 - Hypotension, unspecified Plan to address problem: IV fluid resuscitation therapy as clinically indicated, packed red blood cell transfusion, fall precautions. (3) Nicotine dependence Current Visit: Yes Status: Acute Qualifiers: Nicotine product type: cigarettes Substance use status: in withdrawal Qualified Code(s): F17.213 - Nicotine dependence, cigarettes, with withdrawal Plan to address problem: Localization counseling, behavior change counseling, supportive care. +15 minutes. (4) Diabetes Current Visit: Yes Status: Acute Plan to address problem: Consistent carbohydrate diet, sliding scale insulin therapy, hypoglycemia protocol. (5) DVT prophylaxis Current Visit: No Status: Acute Plan to address problem: SCD bilateral lower extremities while in bed, patient is ambulatory. (6) Advance care planning Current Visit: Yes Status: Acute Plan to address problem: Disease education done, care plan discussed, diagnoses discussed, patient is full code, patient knowledges understanding and agree with care plan, +30 minutes.
[2020-08-17 20:20] LABS: INR 1.3 (0.87-1.13)
[2020-08-18 03:55] LABS: Anisocytosis 2+; Total Cells Counted 100
[2020-08-18 03:56] LABS: Hypochromasia 2+; Platelet Estimate Consistent w Auto
[2020-08-18 08:55] LABS: Basophils # (Auto) 0.1 K/mm3 (0.0-0.1); Basophils % (Auto) 0.6 % (0.0-1.8); Eosinophils # (Auto) 0.1 K/mm3 (0.0-0.4); Eosinophils % (Auto) 1.1 % (0.0-4.3); Lymphocytes # (Auto) 0.6 K/mm3 (1.2-5.4); Lymphocytes % (Auto) 7.1 % (13.4-35.0); Mean Corpuscular HGB Conc 27 % (32-34); Monocytes # (Auto) 0.6 K/mm3 (0.0-0.8); Platelet Count 439 K/mm3 (140-440); Red Blood Count 2.24 M/mm3 (3.65-5.03)
[2020-08-18 09:11] LABS: Hematocrit 13.8 % (35.5-45.6); Hemoglobin 3.8 gm/dl (11.8-15.2); Mean Corpuscular Volume 62 fl (84-94); Red Cell Distribution Width 23.2 % (13.2-15.2)
--- NOTE | 2020-08-18 13:29 | Progress Note ---
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 Pt reports "I feel weak and lightheaded". Pt states that he has experienced weakness and lightheadedness over the past 1 week. Pt was seen and evaluated by his PCP and was found to have Symptomatic anemia with a hemoglobin of 2.6. Pt was instructed to seen further care at [facility]. Pt transported to [facility] via private vehicle for further care and evaluation of the aforementioned symptoms. Pt seen and evaluated in ED. All labs and imaging studies reviewed. Pt found to have symptomatic anemia with a hemoglobin of 3.5 as well as systolic blood pressure of 99 mmHg. Pt placed in observation status and admitted to medical floor. Pt transfused with PRBC. Patient denies fever, chills, chest pain, palpitation, productive cough, skin rash, recent ill contact, or known exposure to COVID-19, bright red blood per rectum, melanotic stool, recent ill contacts. Advanced care planning conducted in ED. 08/18: Continue supportive care awaiting blood transfusion, from [place]. Extensive discussion with this patient about quitting tobacco use he verbalized understanding I also informed him need to follow-up with enterprise data architect outpatient I will refer the patient to Dr. Wade. Will resume patient steroids from home. Patient had extensive work-up in the past recently this year with GI evaluation and enterprise data architect. Does feel that this is secondary to autoimmune effect . (1) Anemia requiring transfusions Current Visit: Yes Status: Acute Plan to address problem: CBC, packed red blood cell transfusion, supportive care, repeat CBC in a.m. (2) Hypotension Current Visit: Yes Status: Acute Qualifiers: Hypotension type: unspecified hypotension type Qualified Code(s): I95.9 - Hypotension, unspecified Plan to address problem: IV fluid resuscitation therapy as clinically indicated, packed red blood cell transfusion, fall precautions. (3) Nicotine dependence Current Visit: Yes Status: Acute Qualifiers: Nicotine product type: cigarettes Substance use status: in withdrawal Qualified Code(s): F17.213 - Nicotine dependence, cigarettes, with withdrawal Plan to address problem: Localization counseling, behavior change counseling, supportive care. +15 mi nutes. (4) Diabetes Current Visit: Yes Status: Acute Plan to address problem: Consistent carbohydrate diet, sliding scale insulin therapy, hypoglycemia protocol. (5) DVT prophylaxis Current Visit: No Status: Acute Plan to address problem: SCD bilateral lower extremities while in bed, patient is ambulatory. (6) Advance care planning Current Visit: Yes Status: Acute Plan to address problem: Disease education done, care plan discussed, diagnoses discussed, patient is full code, patient knowledges understanding and agree with care plan, +30 minutes. History Interval history: Patient seen and examined no acute distress tells me that he did not follow-up with any enterprise data architect as he was not given 1 during the last time. He says that he has a primary care doctor. Hospitalist Physical - Physical exam Narrative exam: VITAL SIGNS: Reviewed. GENERAL: The patient appears normally developed, Vital signs as documented. HEAD: No signs of head trauma. EYES: Pupils are equal. Extraocular motions intact. Conjunctival pallor still remains EARS: Hearing grossly intact. MOUTH: Oropharynx is normal. NECK: No adenopathy, no JVD. CHEST: Chest with clear breath sounds bilaterally. No wheezes, rales, or rhonchi. CARDIAC: Regular rate and rhythm. S1 and S2, without murmurs, gallops, or rubs. VASCULAR: No Edema. Peripheral pulses normal and equal in all extremities. ABDOMEN: Soft, non tender and non distended. No rebound or guarding, and no masses palpated. Bowel Sounds normal. MUSCULOSKELETAL: Good range of motion of all major joints. Extremities without clubbing, cyanosis or edema. NEUROLOGIC EXAM: Alert and oriented x 3 No focal sensory or strength deficits. Speech normal. Follows commands. PSYCHIATRIC: Mood normal. SKIN: detail exam as documented in skin assessment - Constitutional Vitals: Temp Pulse Resp BP Pulse Ox 101.8 F H 118 H 20 110/57 92 08/18/20 11:58 08/18/20 11:58 08/18/20 11:58 08/18/20 11:58 08/18/20 11:58 General appearance: Present: mild distress Results - Labs CBC & Chem 7: 08/18/20 08:49 08/17/20 19:23 Labs: Laboratory Last Values WBC 9.0 K/mm3 (4.5-11.0) 08/18/20 08:49 RBC 2.24 M/mm3 (3.65-5.03) L 08/18/20 08:49 Hgb 3.8 gm/dl (11.8-15.2) L* 08/18/20 08:49 Hct 13.8 % (35.5-45.6) L* 08/18/20 08:49 MCV 62 fl (84-94) L 08/18/20 08:49 MCH 17 pg (28-32) L 08/18/20 08:49 MCHC 27 % (32-34) L 08/18/20 08:49 RDW 23.2 % (13.2-15.2) H 08/18/20 08:49 Plt Count 439 K/mm3 (140-440) 08/18/20 08:49 Lymph % (Auto) 7.1 % (13.4-35.0) L 08/18/20 08:49 [place] % (Auto) 7.0 % (0.0-7.3) 08/18/20 08:49 Eos % (Auto) 1.1 % (0.0-4.3) 08/18/20 08:49 Baso % (Auto) 0.6 % (0.0-1.8) 08/18/20 08:49 Lymph # (Auto) 0.6 K/mm3 (1.2-5.4) L 08/18/20 08:49 [place] # (Auto) 0.6 K/mm3 (0.0-0.8) 08/18/20 08:49 Eos # (Auto) 0.1 K/mm3 (0.0-0.4) 08/18/20 08:49 Baso # (Auto) 0.1 K/mm3 (0.0-0.1) 08/18/20 08:49 Add Manual Diff Complete 08/17/20 19:23 Total Counted 100 08/17/20 19:23 Seg Neutrophils % 84.2 % (40.0-70.0) H 08/18/20 08:49 Seg Neuts % (Manual) 73.0 % (40.0-70.0) H 08/17/20 19:23 Lymphocytes % (Manual) 20.0 % (13.4-35.0) 08/17/20 19:23 Monocytes % (Manual) 6.0 % (0.0-7.3) 08/17/20 19:23 Eosinophils % (Manual) 1.0 % (0.0-4.3) 08/17/20 19:23 Nucleated RBC % Not Reportable 08/17/20 19:23 Seg Neutrophils # 7.6 K/mm3 (1.8-7.7) 08/18/20 08:49 Seg Neutrophils # Man 3.4 K/mm3 (1.8-7.7) 08/17/20 19:23 Band Neutrophils # 0.0 K/mm3 08/17/20 19:23 Lymphocytes # (Manual) 0.9 K/mm3 (1.2-5.4) L 08/17/20 19:23 Abs React Lymphs (Man) 0.0 K/mm3 08/17/20 19:23 Monocytes # (Manual) 0.3 K/mm3 (0.0-0.8) 08/17/20 19:23 Eosinophils # (Manual) 0.0 K/mm3 (0.0-0.4) 08/17/20 19:23 Basophils # (Manual) 0.0 K/mm3 (0.0-0.1) 08/17/20 19:23 Metamyelocytes # 0.0 K/mm3 08/17/20 19:23 Myelocytes # 0.0 K/mm3 08/17/20 19:23 Promyelocytes # 0.0 K/mm3 08/17/20 19:23 Blast Cells # 0.0 K/mm3 08/17/20 19:23 WBC Morphology Not Reportable 08/17/20 19:23 Hypersegmented Neuts Not Reportable 08/17/20 19:23 Hyposegmented Neuts Not Reportable 08/17/20 19:23 Hypogranular Neuts Not Reportable 08/17/20 19:23 Smudge Cells Not Reportable 08/17/20 19:23 Toxic Granulation Not Reportable 08/17/20 19:23 Toxic Vacuolation Not Reportable 08/17/20 19:23 Dohle Bodies Not Reportable 08/17/20 19:23 Pelger-Huet Anomaly Not Reportable 08/17/20 19:23 Katia Rods Not Reportable 08/17/20 19:23 Platelet Estimate Consistent w auto 08/17/20 19:23 Clumped Platelets Not Reportable 08/17/20 19:23 Plt Clumps, EDTA Not Reportable 08/17/20 19:23 Large Platelets Not Reportable 08/17/20 19:23 Giant Platelets Not Reportable 08/17/20 19:23 Platelet Satelliting Not Reportable 08/17/20 19:23 Plt Morphology Comment Not Reportable 08/17/20 19:23 RBC Morphology Not Reportable 08/17/20 19:23 Dimorphic RBCs Not Reportable 08/17/20 19:23 Polychromasia Not Reportable 08/17/20 19:23 Hypochromasia 2+ 08/17/20 19:23 Poikilocytosis Not Reportable 08/17/20 19:23 Anisocytosis 2+ 08/17/20 19:23 Microcytosis 2+ 08/17/20 19:23 Macrocytosis Not Reportable 08/17/20 19:23 Spherocytes Not Reportable 08/17/20 19:23 Pappenheimer Bodies Not Reportable 08/17/20 19:23 Sickle Cells Not Reportable 08/17/20 19:23 Target Cells Not Reportable 08/17/20 19:23 Tear Drop Cells Not Reportable 08/17/20 19:23 Ovalocytes Not Reportable 08/17/20 19:23 Helmet Cells Not Reportable 08/17/20 19:23 Suarez-Selz Bodies Not Reportable 08/17/20 19:23 [place] Rings Not Reportable 08/17/20 19:23 Luke Cells Not Reportable 08/17/20 19:23 Bite Cells Not Reportable 08/17/20 19:23 Crenated Cell Not Reportable 08/17/20 19:23 Elliptocytes Not Reportable 08/17/20 19:23 Acanthocytes (Spur) Not Reportable 08/17/20 19:23 Rouleaux Not Reportable 08/17/20 19:23 Hemoglobin C Crystals Not Reportable 08/17/20 19:23 Schistocytes Not Reportable 08/17/20 19:23 Malaria parasites Not Reportable 08/17/20 19:23 Jl Bodies Not Reportable 08/17/20 19:23 Hem Pathologist Commnt No 08/17/20 19:23 PT 16.8 Sec. (12.2-14.9) H 08/17/20 19:23 INR 1.30 (0.87-1.13) H 08/17/20 19:23 Sodium 138 mmol/L (137-145) 08/17/20 19:23 Potassium 3.8 mmol/L (3.6-5.0) 08/17/20 19:23 Chloride 103.7 mmol/L (98-107) 08/17/20 19:23 Carbon Dioxide 24 mmol/L (22-30) 08/17/20 19:23 Anion Gap 14 mmol/L 08/17/20 19:23 BUN 14 mg/dL (9-20) 08/17/20 19:23 Creatinine 0.8 mg/dL (0.8-1.3) 08/17/20 19:23 Estimated GFR > 60 ml/min 08/17/20 19:23 BUN/Creatinine Ratio 18 % 08/17/20 19:23 Glucose 163 mg/dL (75-100) H 08/17/20 19:23 POC Glucose 170 mg/dL (70-105) H 08/18/20 07:53 Calcium 8.3 mg/dL (8.4-10.2) L 08/17/20 19:23 Blood Type A POSITIVE 08/17/20 19:23 JYOTI Antibody Screen Negative 08/17/20 19:23 Crossmatch See Detail 08/17/20 19:23 Parker/IV: Voiding Method Urinal Active Medications - Current Medications Current Medications: Generic Name Dose Route Start Last Admin Trade Name Freq PRN Reason Stop Dose Admin Acetaminophen 650 mg 08/17/20 20:01 Acetaminophen 325 Mg Tab PO Q4H PRN Pain MILD(1-3)/Fever >100.5/DURÁN Albuterol 2.5 mg 08/17/20 20:01 Albuterol 2.5 Mg/3 Ml Nebu IH Q4HRT PRN Shortness Of Breath Ondansetron HCl 4 mg 08/17/20 20:01 Ondansetron 4 Mg/2 Ml Inj IV Q8H PRN Nausea And Vomiting Sodium Chloride 10 ml 08/17/20 22:00 08/18/20 09:01 Sodium Chloride 0.9% 10 Ml Flush Syringe IV 10 ml BID LUCIAN Administration Sodium Chloride 10 ml 08/17/20 20:01 Sodium Chloride 0.9% 10 Ml Flush Syringe IV PRN PRN LINE FLUSH Nutrition/Malnutrition Assess - Dietary Evaluation Nutrition/Malnutrition Findings: Nutrition Notes Start: 08/18/20 13:07 Freq: Status: Active Protocol: Document 08/18/20 13:07 CW (Rec: 08/18/20 13:12 CW [id number]) Nutrition Notes 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 Skin is intact. No toyin score available. Pt reports a poor appetite [place] but denies any weight loss. Pt reports PO intake of 50%or less of meals during stay. Pt interested in trying ONS, vanilla flavor. Pt reported UBW of 138 lbs. Burn Absent Trauma Absent GI Symptoms None Food Allergy No Skin Integrity/Comment Intact Current % PO Poor (25-49%) Minimum of two criteria No Energy Intake (severe) < or equal to 50% Estimated Energy Requirement > or equal to 5 days #1 Nutrition Diagnosis Inadequate oral intake Etiology loss of appetite As Evidenced by Signs and Symptoms Pt consuming 50% of less of meals provided Is patient on ventilator? No Is Patient Ambulatory and/or Out of Bed No REE-([place]-confined to bed) 1610.242 Calculation Used for Recommendations [facility] Additional Notes protein needs:61 - 73 (1 -1.2g /gBW) fluid needs: 1 ml/kcal Nutrition Intervention Change Diet Order: Change diet to Consistent Carbohydrate Diet Add Supplement/Snack (indicate name/kcal Glucerna Vanilla BID /protein ) Provides kCal: 440 Provides Protein (gm) 20 Goal #1 Meet at least 75% of kcal and protein needs via PO Anticipated Discharge Needs: Consistent Carbohydrate Diet Follow-Up By: 08/20/20 Additional Comments F/U for ONS tolerance and PO intake
[2020-08-18] MEDS ORDERED: SODIUM CHLORIDE 0.9% 500 ML 500 ML ONE (16:13)
[2020-08-18] MEDS ORDERED: SODIUM CHLORIDE 0.9% 500 ML IVPB IV SCH (20:00)
[2020-08-18] MEDS: FERROUS SULFATE 325 MG TAB PO SCH (22:43)
[2020-08-19 08:37] LABS: Hematocrit 21.7 % (35.5-45.6); Hemoglobin 6.6 gm/dl (11.8-15.2)
[2020-08-19 08:38] LABS: Blood Urea Nitrogen 13 mg/dL (9-20); Hemolysis Index 5
[2020-08-19 08:39] LABS: BUN/Creatinine Ratio 22
--- NOTE | 2020-08-19 09:22 | Discharge Summary ---
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 Pt reports "I feel weak and lightheaded". Pt states that he has experienced weakness and lightheadedness over the past 1 week. Pt was seen and evaluated by his PCP and was found to have Symptomatic anemia with a hemoglobin of 2.6. Pt was instructed to seen further care at [facility]. Pt transported to [facility] via private vehicle for further care and evaluation of the aforementioned symptoms. Pt seen and evaluated in ED. All labs and imaging studies reviewed. Pt found to have symptomatic anemia with a hemoglobin of 3.5 as well as systolic blood pressure of 99 mmHg. Pt placed in observation status and admitted to medical floor. Pt transfused with PRBC. Patient denies fever, chills, chest pain, palpitation, productive cough, skin rash, recent ill contact, or known exposure to COVID-19, bright red blood per rectum, melanotic stool, recent ill contacts. Advanced care planning conducted in ED. 08/18: Continue supportive care awaiting blood transfusion, from [place]. Extensive discussion with this patient about quitting tobacco use he verbalized understanding I also informed him need to follow-up with cream tester outpatient I will refer the patient to Dr. Wade. Will resume patient steroids from home. Patient had extensive work-up in the past recently this year with GI evaluation and cream tester. Does feel that this is secondary to autoimmune effect . 08/19: Patient reports improvement in symptoms today. No new complaints. He did receive 3 units packed red blood cell with improvement of hemoglobin to 6.6 additional units to be given today and patient can be discharged I stressed the importance of following up with his cream tester and I did recommend a physician for the patient. Patient verbalized understanding. He will continue on the steroids until full work-up is done by hematology he is to monitor his blood sugar with a steroid therapy. He is also to quit tobacco use he verbalized understanding while his blood sugar has been diet controlled I did order some insulin for him on discharge considering the steroid therapy. (1) Anemia requiring transfusions Current Visit: Yes Status: Acute Plan to address problem: CBC, packed red blood cell transfusion, supportive care, repeat CBC in a.m. (2) Hypotension Current Visit: Yes Status: Acute Qualifiers: Hypotension type: unspecified hypotension type Qualified Code(s): I95.9 - Hypotension, unspecified Plan to address problem: IV fluid resuscitation therapy as clinically indicated, packed red blood cell transfusion, fall precautions. (3) Nicotine dependence Current Visit: Yes Status: Acute Qualifiers: Nicotine product type: cigarettes Substance use status: in withdrawal Qualified Code(s): F17.213 - Nicotine dependence, cigarettes, with withdrawal Plan to address problem: Localization counseling, behavior change counseling, supportive care. +15 minutes. (4) Diabetes Current Visit: Yes Status: Acute Plan to address problem: Consistent carbohydrate diet, sliding scale insulin therapy, hypoglycemia protocol. Disposition: DC- TO HOME OR SELFCARE Final Discharge Diagnosis (Prints w/discharge instructions): Symptomatic anemia Time spent for discharge: 35 MINS Core Measure Documentation - Palliative Care Palliative Care/ Comfort Measures: Not Applicable - Core Measures Any of the following diagnoses?: none Exam - Physical Exam Narrative exam: VITAL SIGNS: Reviewed. GENERAL: The patient appears normally developed, Vital signs as documented. HEAD: No signs of head trauma. EYES: Pupils are equal. Extraocular motions intact. Conjunctival pallor still remains EARS: Hearing grossly intact. MOUTH: Oropharynx is normal. NECK: No adenopathy, no JVD. CHEST: Chest with clear breath sounds bilaterally. No wheezes, rales, or rhonchi. CARDIAC: Regular rate and rhythm. S1 and S2, without murmurs, gallops, or rubs. VASCULAR: No Edema. Peripheral pulses normal and equal in all extremities. ABDOMEN: Soft, non tender and non distended. No rebound or guarding, and no masses palpated. Bowel Sounds normal. MUSCULOSKELETAL: Good range of motion of all major joints. Extremities without clubbing, cyanosis or edema. NEUROLOGIC EXAM: Alert and oriented x 3 No focal sensory or strength deficits. Speech normal. Follows commands. PSYCHIATRIC: Mood normal. SKIN: detail exam as documented in skin assessment - Constitutional Vitals: Temp Pulse Resp BP Pulse Ox 98.2 F 98 H 20 114/68 96 08/19/20 04:49 08/19/20 04:49 08/19/20 04:49 08/19/20 04:49 08/19/20 04:49 Plan Activity: advance as tolerated, fall precautions Diet: low fat Special Instructions: record daily BP diary, smoking cessation Follow up with: PRIMARY CARE, [Primary Care Provider] - 3-5 Days EVENS WADE MD [Staff Physician] - 7 Days Prescriptions: predniSONE 10 mg PO QDAY #30 tab Pantoprazole [Protonix TAB] 40 mg PO BID 60 Days #30 tablet
[2020-08-19] MEDS: predniSONE 10 MG TAB PO SCH (09:40)
[2020-08-19] MEDS: FOLIC ACID 1 MG TAB PO SCH (09:40)
[2020-08-19] MEDS: FERROUS SULFATE 325 MG TAB PO SCH ×2 (09:40→22:38)
[2020-08-19] MEDS ORDERED: SODIUM CHLORIDE 0.9% 1000 ML 500 ML IV ONE (10:00)
[2020-08-19] MEDS ORDERED: SODIUM CHLORIDE 0.9% 500 ML IVPB IV NR (10:09)
[2020-08-19] MEDS ORDERED: DEXTROSE 50% IN WATER (25GM) 50 ML SYRINGE IV PRN (11:36)
--- NOTE | 2020-08-19 11:38 | Consultation ---
History of Present Illness Consult date: 08/19/20 Requesting physician: GOMEZ ARAYA Consult reason: tachycardia History of present illness: Patient is a 64-year-old male with no prior medical problems was admitted to the hospital for work-up of anemia. Apparently patient was seen by primary care for dizziness and lightheadedness. Noted to have significantly low hemoglobin and he was sent to the hospital. In the hospital patient was noted to have a hemoglobin around 3. He has since been transfused with gradual improvement in his hemoglobin. monitoring specialist showed episodes of asymptomatic brief nonsustained VT which is improving since he got his blood transfusion. Patient denies any chest pain or palpitations or dizziness. No prior cardiac history. Past History Past Medical History: diabetes, GERD, hepatitis Past Surgical History: No surgical history, Other (reviewed) Social history: single, smoking. denies: alcohol abuse, prescription drug abuse Family history: diabetes, hypertension Medications and Allergies Allergies Allergy/AdvReac Type Severity Reaction Status Date / Time No Known Allergies Allergy Verified 08/27/17 07:25 Home Medications Medication Instructions Recorded Confirmed Last Taken Type Acetaminophen [Acetaminophen TAB] 1,000 mg PO Q6HR PRN #30 tablet 02/07/20 03/28/20 Unknown Rx Ferrous Sulfate [Feosol 325 MG tab] 325 mg PO BID #60 tablet 03/31/20 Unknown Rx Folic Acid [Folvite] 1 mg PO QDAY 30 Days #30 tablet 03/31/20 Unknown Rx Insulin Regular, Human [HumuLIN R] 0 unit SQ AC #1 vial 08/19/20 Unknown Rx Pantoprazole [Protonix TAB] 40 mg PO BID 60 Days #30 tablet 08/19/20 Unknown Rx predniSONE 10 mg PO QDAY #30 tab 08/19/20 Unknown Rx Active Meds: Active Medications Acetaminophen (Acetaminophen 325 Mg Tab) 650 mg PO Q4H PRN PRN Reason: Pain MILD(1-3)/Fever >100.5/DURÁN Last Admin: 08/18/20 21:18 Dose: 650 mg Documented by: Albuterol (Albuterol 2.5 Mg/3 Ml Nebu) 2.5 mg IH Q4HRT PRN PRN Reason: Shortness Of Breath Ferrous Sulfate (Ferrous Sulfate 325 Mg Tab) 325 mg PO BID LUCIAN Last Admin: 08/19/20 09:40 Dose: 325 mg Documented by: Folic Acid (Folic Acid 1 Mg Tab) 1 mg PO QDAY [facility] Last Admin: 08/19/20 09:40 Dose: 1 mg Documented by: Sodium Chloride (Nacl 0.9% 1000 Ml) 500 mls @ 42 mls/hr IV ONCE ONE Stop: 08/19/20 21:54 Last Admin: 08/19/20 10:15 Dose: Not Given Documented by: Ondansetron HCl (Ondansetron 4 Mg/2 Ml Inj) 4 mg IV Q8H PRN PRN Reason: Nausea And Vomiting Prednisone (Prednisone 10 Mg Tab) 10 mg PO QDAY [facility] Last Admin: 08/19/20 09:40 Dose: 10 mg Documented by: Sodium Chloride (Sodium Chloride 0.9% 10 Ml Flush Syringe) 10 ml IV BID [facility] Last Admin: 08/19/20 09:40 Dose: 10 ml Documented by: Sodium Chloride (Sodium Chloride 0.9% 10 Ml Flush Syringe) 10 ml IV PRN PRN PRN Reason: LINE FLUSH Sodium Chloride (Sodium Chloride 0.9% 500 Ml Ivpb) 500 ml IV ONCE NR Stop: 08/19/20 20:00 Last Admin: 08/19/20 10:16 Dose: 500 ml Documented by: Review of Systems All systems: negative (As mentioned in the H&P) Physical Examination Vital Signs Temp Pulse Resp BP Pulse Ox 98.3 F 104 H 16 88/37 94 08/17/20 18:53 08/17/20 18:53 08/17/20 18:53 08/17/20 18:53 08/17/20 18:53 General appearance: no acute distress HEENT: Positive: Normocephaly Neck: Positive: trachea midline Cardiac: Positive: Reg Rate and Rhythm Lungs: Positive: clear to auscultation Neuro: Positive: Grossly Intact Abdomen: Positive: Unremarkable Extremities: Present: normal Results 08/19/20 07:38 08/19/20 07:38 CBC 08/19/20 Range/Units 07:38 Hgb 6.6 L (11.8-15.2) gm/dl Hct 21.7 L D (35.5-45.6) % Comprehensive Metabolic Panel 08/19/20 Range/Units 07:38 Sodium 137 (137-145) mmol/L Potassium 4.0 (3.6-5.0) mmol/L Chloride 105.0 (98-107) mmol/L Carbon Dioxide 22 (22-30) mmol/L BUN 13 (9-20) mg/dL Creatinine 0.6 L (0.8-1.3) mg/dL Glucose 154 H (75-100) mg/dL Calcium 8.0 L (8.4-10.2) mg/dL EKG interpretations - Telemetry EKG Rhythm: Sinus Rhythm (No acute ST-T wave changes.) Assessment and Plan Impression 1. Asymptomatic nonsustained VT in the setting of severe anemia. 2. Severe anemia improving with blood transfusion 3. History of hepatitis Plan Continue treatment and evaluation of anemia as per primary team We will get a 2D echo and if EF is normal may not need any further work-up Start low-dose beta-blockers as tolerated In the setting of severe anemia will hold off on ischemia evaluation
[2020-08-19] MEDS: INSULIN LISPRO 100 UNIT/ML SUB-Q SCH ×3 (13:00→22:39)
[2020-08-19 20:45] LABS: Hemoglobin 8.6 gm/dl (11.8-15.2)
[2020-08-20 05:42] LABS: Hematocrit 29.3 % (35.5-45.6); Hemoglobin 9.2 gm/dl (11.8-15.2); Mean Corpuscular HGB Conc 31 % (32-34); Mean Corpuscular Volume 73 fl (84-94); Platelet Count 224 K/mm3 (140-440); Red Blood Count 4.02 M/mm3 (3.65-5.03)
[2020-08-20 05:48] LABS: Red Cell Distribution Width 27.2 % (13.2-15.2)
[2020-08-20 05:57] LABS: Blood Urea Nitrogen 10 mg/dL (9-20); Calcium 8.5 mg/dL (8.4-10.2); Hemolysis Index 5
[2020-08-20 05:58] LABS: BUN/Creatinine Ratio 20
[2020-08-20] MEDS: INSULIN LISPRO 100 UNIT/ML SUB-Q SCH ×2 (09:39→12:17)
[2020-08-20] MEDS: predniSONE 10 MG TAB PO SCH (09:39)
[2020-08-20] MEDS: FERROUS SULFATE 325 MG TAB PO SCH (09:39)
[2020-08-20] MEDS: FOLIC ACID 1 MG TAB PO SCH (09:39)
--- NOTE | 2020-08-20 11:49 | Progress Note ---
Assessment and Plan - Patient Problems (1) Nonsustained ventricular tachycardia Current Visit: Yes Status: Acute Plan to address problem: Asymptomatic ventricular ectopy in the setting of profound anemia. Work-up and management of the anemia is ongoing. With regards to the cardiac status, an echocardiogram has been ordered for left ventricular function assessment, we will add empiric metoprolol to the management, but otherwise conservative cardiac approach to management. Subjective Date of service: 08/20/20 Interval history: Patient was admitted for severe symptomatic anemia with a hematocrit of 12 on his presentation. He is much less symptomatic following blood transfusion, and currently undergoing both GI and hematology evaluation for his presenting anemia . Cardiology work-up was requested for the finding of an asymptomatic short burst of nonsustained ventricular tachycardia. My review of the chart shows that his baseline EKG was a sinus rhythm with frequent isolated PVCs, and nonspecific ST segment abnormalities. There are no available telemetry strips for review documenting the nonsustained ventricular tachycardia. Objective Vital Signs Temp Pulse Pulse Resp BP Pulse Ox 08/20/20 08:11 104 H 08/20/20 04:26 98.0 F 95 H 22 137/79 95 08/19/20 22:47 98.3 F 103 H 22 147/84 92 08/19/20 16:46 97.6 F 101 H 22 129/80 91 08/19/20 14:05 98.1 F 95 H 20 158/83 99 08/19/20 13:35 98.1 F 95 H 20 145/84 97 08/19/20 13:05 98.1 F 96 H 20 145/81 98 08/19/20 12:35 97.9 F 97 H 20 136/76 92 08/19/20 12:05 97.0 F L 96 H 20 131/78 97 - Physical Examination General: No Apparent Distress HEENT: Positive: Normocephaly Neck: Positive: trachea midline Cardiac: Positive: Reg Rate and Rhythm Lungs: Positive: Decreased Breath Sounds Neuro: Positive: Grossly Intact Abdomen: Positive: Unremarkable Skin: Positive: Clear Extremities: Present: normal - Labs and Meds CBC 08/19/20 08/20/20 Range/Units 19:50 05:21 WBC 5.4 (4.5-11.0) K/mm3 RBC 4.02 (3.65-5.03) M/mm3 Hgb 8.6 L 9.2 L (11.8-15.2) gm/dl Hct 28.0 L D 29.3 L (35.5-45.6) % Plt Count 224 (140-440) K/mm3 Comprehensive Metabolic Panel 08/20/20 Range/Units 05:21 Sodium 138 (137-145) mmol/L Potassium 3.7 (3.6-5.0) mmol/L Chloride 105.4 (98-107) mmol/L Carbon Dioxide 23 (22-30) mmol/L BUN 10 (9-20) mg/dL Creatinine 0.5 L (0.8-1.3) mg/dL Glucose 156 H (75-100) mg/dL Calcium 8.5 (8.4-10.2) mg/dL
[2020-08-20] MEDS ORDERED: METOPROLOL TARTRATE 25 MG TAB PO SCH (12:00)
[2020-08-20 12:05] VITALS: BP 125/79
--- NOTE | 2020-08-20 12:08 | Discharge Summary ---
Providers - Providers Date of Admission: 08/17/20 20:03 Attending physician: GOMEZ ARAYA MD 08/19/20 01:48 Consult to Physician [CONS] Routine Comment: Consulting Provider: LEORA VILLARREAL Physician Instructions: Reason For Exam: run of [employer] Primary care physician: HARNESS INSPECTOR Hospitalization Reason for admission: Symptomatic anemia Condition: Stable Hospital course: 64 YO Male with DM, OA, AVM complicated by Symptomatic Anemia, Nicotine Dependence, HCV, GERD presents to ED for evaluation. Pt reports "I feel weak and lightheaded". Pt states that he has experienced weakness and lightheadedness over the past 1 week. Pt was seen and evaluated by his PCP and was found to have Symptomatic anemia with a hemoglobin of 2.6. Pt was instructed to seen further care at [facility]. Pt transported to [facility] via private vehicle for further care and evaluation of the aforementioned symptoms. Pt seen and evaluated in ED. All labs and imaging studies reviewed. Pt found to have symptomatic anemia with a hemoglobin of 3.5 as well as systolic blood pressure of 99 mmHg. Pt placed in observation status and admitted to medical floor. Pt transfused with PRBC. Patient denies fever, chills, chest pain, palpitation, productive cough, skin rash, recent ill contact, or known exposure to COVID-19, bright red blood per rectum, melanotic stool, recent ill contacts. Advanced care planning conducted in ED. 08/18: Continue supportive care awaiting blood transfusion, from [place]. Extensive discussion with this patient about quitting tobacco use he verbalized understanding I also informed him need to follow-up with calibration checker outpatient I will refer the patient to Dr. Woods. Will resume patient steroids from home. Patient had extensive work-up in the past recently this year with GI evaluation and calibration checker. Does feel that this is secondary to autoimmune effect . 08/19: Patient reports improvement in symptoms today. No new complaints. He did receive 3 units packed red blood cell with improvement of hemoglobin to 6.6 additional units to be given today and patient can be discharged I stressed the importance of following up with his calibration checker and I did recommend a physician for the patient. Patient verbalized understanding. He will continue on the steroids until full work-up is done by hematology he is to monitor his blood sugar with a steroid therapy. He is also to quit tobacco use he verbalized understanding while his blood sugar has been diet controlled I did order some insulin for him on discharge considering the steroid therapy. vtach noted. paper bags sewing machine operator will like to further monitor patient and obtain risk stratification 08/20: Patient seen and examined states that he is doing well this morning no further incident noted. House Steward/Stewardess reviewed him again today felt that this is secondary to profound anemia. Patient was started on metoprolol nevertheless he will follow with paper bags sewing machine operator outpatient. Again I discussed prior recommended follow-up with him including calibration checker he verbalized understanding (1) symptomatic anemia requiring transfusions Current Visit: Yes Status: Acute Plan to address problem: CBC, packed red blood cell transfusion, supportive care, repeat CBC in a.m. (2) Hypotension Current Visit: Yes Status: Acute Qualifiers: Hypotension type: unspecified hypotension type Qualified Code(s): I95.9 - Hypotension, unspecified Plan to address problem: IV fluid resuscitation therapy as clinically indicated, packed red blood cell transfusion, fall precautions. (3) Nicotine dependence Current Visit: Yes Status: Acute Qualifiers: Nicotine product type: cigarettes Substance use status: in withdrawal Qualified Code(s): F17.213 - Nicotine dependence, cigarettes, with withdrawal Plan to address problem: Localization counseling, behavior change counseling, supportive care. +15 minutes. (4) Diabetes Current Visit: Yes Status: Acute Plan to address problem: Consistent carbohydrate diet, sliding scale insulin therapy, hypoglycemia protocol. Disposition: TO HOME OR SELFCARE Final Discharge Diagnosis (Prints w/discharge instructions): Symptomatic anemia Time spent for discharge: 35 minutes Core Measure Documentation - Palliative Care Palliative Care/ Comfort Measures: Not Applicable - Core Measures Any of the following diagnoses?: none Exam - Physical Exam Narrative exam: VITAL SIGNS: Reviewed. GENERAL: The patient appears normally developed, Vital signs as documented. HEAD: No signs of head trauma. EYES: Pupils are equal. Extraocular motions intact. EARS: Hearing grossly intact. MOUTH: Oropharynx is normal. NECK: No adenopathy, no JVD. CHEST: Chest with clear breath sounds bilaterally. No wheezes, rales, or rhonchi. CARDIAC: Regular rate and rhythm. S1 and S2, without murmurs, gallops, or rubs. VASCULAR: No Edema. Peripheral pulses normal and equal in all extremities. ABDOMEN: Soft, non tender and non distended. No rebound or guarding, and no masses palpated. Bowel Sounds normal. MUSCULOSKELETAL: Good range of motion of all major joints. Extremities without clubbing, cyanosis or edema. NEUROLOGIC EXAM: Alert and oriented x 3 No focal sensory or strength deficits. Speech normal. Follows commands. PSYCHIATRIC: Mood normal. SKIN: detail exam as documented in skin assessment - Constitutional Vitals: Temp Pulse Resp BP Pulse Ox 98.0 F 104 H 22 137/79 95 08/20/20 04:26 08/20/20 08:11 08/20/20 04:26 08/20/20 04:26 08/20/20 04:26 Plan Activity: advance as tolerated, fall precautions Diet: low fat Special Instructions: record daily weights, record daily BP diary, record blood sugar diary, smoking cessation Follow up with: EVENS WOODS MD [Staff Physician] - 7 Days PRIMARY CAREMD [Primary Care Provider] - 3-5 Days NOELLE LOPEZ MD [Staff Physician] - 7 Days Prescriptions: Metoprolol [Lopressor TAB] 25 mg PO BID #60 tablet Other Discharge Orders: Glucometer (Amb) Location: None Selected Glucometer supplies[Amb] Location: None Selected
--- NOTE | 2020-08-23 12:56 | Electrocardiograph Report ---
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
== END 2020-08-20 15:37 | disposition home or self-care (01) | DRG 812 ==
LOC: ED 17:20 → 3A 20:03 → OBSVTOIN 20:03 → 3A 20:53
PROVIDERS: ADMIT Internal Medicine; ATTEND Internal Medicine
PROC: 30233N1 Transfusion of Nonautologous Red Blood Cells into Peripheral Vein, Percutaneous Approach (ICD-10-PCS; principal; 2020-08-19)
DX: D64.9 Anemia, unspecified (principal); F17.213 Nicotine dependence, cigarettes, with withdrawal; M19.90 Unspecified osteoarthritis, unspecified site; K75.89 Other specified inflammatory liver diseases; I95.9 Hypotension, unspecified; E11.9 Type 2 diabetes mellitus without complications; K21.9 Gastro-esophageal reflux disease without esophagitis; Z83.3 Family history of diabetes mellitus; Z79.899 Other long term (current) drug therapy; Z82.49 Family history of ischemic heart disease and other diseases of the circulatory system
CPT/HCPCS: 36415; 80048; 82962; 83735; 85007; 85014; 85018; 85025; 85027; 85610; 86850; 86870; 86900; 86901; 86922; 93005; 93306; G0378; J1815; J7040; J7512; P9016

== ENCOUNTER 2020-10-16 13:49 | Emergency (ER) | payer MEDICAID, OTHER ==
--- NOTE | 2020-10-16 15:08 | Emergency Department Report ---
Blank Doc - Documentation Documentation: 65-year-old male that presents with dizziness. Patient was sent by PCP for low H&H and blood transfusion. Patient has history of blood transfusions. 1- This is a initial triage assessment/medical screening only. Full assessment and work-up will be completed once the patient is in proper hospital gown, ED bed and in a private room setting. This initial assessment/diagnostic orders/clinical plan/ treatment(s) is/are subject to change based on pt's health status, clinical progression and re-assessment by fellow clinical providers in the ED. Further treatment and workup at subsequent clinical providers discretion. Patient/guardians urged not to elope from ED as their condition may be serious if not clinically assessed and managed. 2-labs and EKG
[2020-10-16 15:30] LABS: INR 0.99 (0.87-1.13)
[2020-10-16 15:31] LABS: Alanine Aminotransferase 7 units/L (7-56); Albumin 4.2 g/dL (3.9-5); Blood Urea Nitrogen 6 mg/dL (9-20); Calcium 9.2 mg/dL (8.4-10.2); Hemolysis Index 13; Partial Thromboplastin Time 30.1 Sec. (24.2-36.6)
[2020-10-16 15:33] LABS: BUN/Creatinine Ratio 12
[2020-10-16 15:36] LABS: Mean Corpuscular HGB Conc 28 % (32-34); Platelet Count 350 K/mm3 (140-440); Red Blood Count 2.83 M/mm3 (3.65-5.03)
[2020-10-16 15:37] LABS: Mean Corpuscular Volume 70 fl (84-94)
[2020-10-16 15:49] LABS: Hematocrit 19.7 % (35.5-45.6); Hemoglobin 5.6 gm/dl (11.8-15.2)
[2020-10-16 16:59] LABS: Total Cells Counted 100
[2020-10-16 17:00] LABS: Hypochromasia 2+
[2020-10-16 17:01] LABS: Ovalocytes 1+
[2020-10-16 17:02] LABS: Platelet Estimate Consistent w Auto; Schistocytes Rare; Tear Drop Cells Rare
[2020-10-16] MEDS ORDERED: SODIUM CHLORIDE 0.9% 500 ML 500 ML IV ONE ×2 (17:27→22:14)
--- NOTE | 2020-10-16 17:31 | Emergency Department Report ---
ED General Adult HPI - General Chief complaint: Medical Clearance Stated complaint: BLOOD Time Seen by Provider: 10/16/20 14:21 Source: patient Mode of arrival: Ambulatory Limitations: No Limitations - History of Present Illness Initial comments: Patient is 65-year-old male with history of diabetes and chronic anemia. Patient sent by his primary care physician for evaluation and blood transfusion. Patient was found to have a hemoglobin of 5.6. Patient had multiple transfusion before. I reviewed patient records from August of this year where he was admitted with a hemoglobin of 3.5. Patient had an extensive work-up with GI and loan processing supervisor and concluded this is most likely autoimmune disease. - Related Data Previous Rx's Medication Instructions Recorded Last Taken Type Insulin Regular, Human [HumuLIN R] 0 unit SQ AC #1 vial 08/20/20 Unknown Rx Metoprolol [Lopressor TAB] 25 mg PO BID #60 tablet 08/20/20 Unknown Rx Allergies Allergy/AdvReac Type Severity Reaction Status Date / Time No Known Allergies Allergy Verified 08/27/17 07:25 ED Review of Systems ROS: Stated complaint: BLOOD Other details as noted in HPI Comment: All other systems reviewed and negative Constitutional: denies: chills, fever Respiratory: denies: cough, shortness of breath, SOB with exertion Cardiovascular: palpitations. denies: chest pain Gastrointestinal: denies: abdominal pain, nausea, vomiting Musculoskeletal: denies: back pain Neurological: weakness. denies: headache, numbness, paresthesias, confusion ED Past Medical Hx - Past Medical History Previous Medical History?: Yes Hx Hypertension: No Hx Heart Attack/AMI: No Hx Congestive Heart Failure: No Hx Diabetes: Yes Hx Deep Vein Thrombosis: No Hx Liver Disease: No Hx Renal Disease: No Hx Sickle Cell Disease: No Hx Arthritis: Yes Hx Seizures: No Hx Asthma: No Hx COPD: No Hx Dementia: No Hx HIV: No Additional medical history: ANEMIA. Proximal gut and multiple colon AVM's (endoscopy/colonoscopy March 2017). hep C - Surgical History Hx Coronary Stent: No Hx Pacemaker: No Hx Internal Defibrillator: No - Social History Smoking Status: Current Every Day Smoker Substance Use Type: None - Medications Home Medications: Home Medications Medication Instructions Recorded Confirmed Last Taken Type Insulin Regular, Human [HumuLIN R] 0 unit SQ AC #1 vial 08/20/20 Unknown Rx Metoprolol [Lopressor TAB] 25 mg PO BID #60 tablet 08/20/20 Unknown Rx ED Physical Exam - General Limitations: No Limitations General appearance: alert, in no apparent distress - Head Head exam: Present: atraumatic, normocephalic, normal inspection - Eye Eye exam: Present: other (pale conuctiva) - ENT ENT exam: Present: normal exam, normal orophraynx, mucous membranes moist - Neck Neck exam: Present: normal inspection, full ROM. Absent: tenderness, meningismus - Respiratory Respiratory exam: Present: normal lung sounds bilaterally - Cardiovascular Cardiovascular Exam: Present: tachycardia - GI/Abdominal GI/Abdominal exam: Present: soft, normal bowel sounds. Absent: distended, tenderness, guarding, rebound, rigid, organomegaly, mass, bruit, pulsatile mass, hernia - Extremities Exam Extremities exam: Present: normal inspection, full ROM, normal capillary refill. Absent: tenderness, pedal edema, joint swelling, calf tenderness - Back Exam Back exam: Present: normal inspection, full ROM. Absent: CVA tenderness (R), CVA tenderness (L) - Neurological Exam Neurological exam: Present: alert, oriented X3, CN II-XII intact, normal gait, reflexes normal - Psychiatric Psychiatric exam: Present: normal mood - Skin Skin exam: Present: warm, intact, normal color ED Course Vital Signs 10/16/20 10/16/20 10/16/20 14:17 18:32 18:41 Temperature 98.6 F 98.5 F Pulse Rate 102 H 87 Respiratory 18 18 19 Rate Blood Pressure 128/55 Blood Pressure 153/71 [Left] O2 Sat by Pulse 100 100 100 Oximetry 10/16/20 10/16/20 10/16/20 20:58 21:00 21:16 Temperature Pulse Rate 95 H 97 H 100 H Respiratory 21 21 21 Rate Blood Pressure 156/73 156/73 157/80 Blood Pressure [Left] O2 Sat by Pulse 100 100 100 Oximetry 10/16/20 10/16/20 10/16/20 21:31 21:45 22:01 Temperature Pulse Rate 98 H 105 H 98 H Respiratory 27 H 21 16 Rate Blood Pressure 140/60 140/60 156/73 Blood Pressure [Left] O2 Sat by Pulse 100 100 100 Oximetry 10/16/20 10/16/20 10/16/20 22:15 22:31 23:01 Temperature Pulse Rate 101 H 98 H 104 H Respiratory 16 24 17 Rate Blood Pressure 157/80 157/80 133/57 Blood Pressure [Left] O2 Sat by Pulse 99 100 99 Oximetry 10/16/20 10/17/20 10/17/20 23:31 00:01 00:15 Temperature Pulse Rate 93 H 107 H 101 H Respiratory 17 16 18 Rate Blood Pressure 133/57 150/66 150/66 Blood Pressure [Left] O2 Sat by Pulse 100 100 100 Oximetry 10/17/20 10/17/20 10/17/20 00:31 00:45 01:01 Temperature Pulse Rate 97 H 91 H 97 H Respiratory 16 17 15 Rate Blood Pressure 150/66 150/66 159/58 Blood Pressure [Left] O2 Sat by Pulse 100 99 100 Oximetry ED Medical Decision Making - Lab Data Result diagrams: 10/16/20 14:27 10/16/20 14:27 - Medical Decision Making Patient is 65-year-old male with history of diabetes and chronic anemia. Patient sent by his primary care physician for evaluation and blood transfusion. Patient was found to have a hemoglobin of 5.6. Patient had multiple transfusion before. I reviewed patient records from August of this year where he was admitted with a hemoglobin of 3.5. Patient had an extensive work-up with GI and loan processing supervisor and concluded this is most likely autoimmune disease. Patient remained stable in the ER. Patient received 1 units of PRBC. No further work-up needed as patient had a complete inpatient work-up before and scheduled to follow-up with a loan processing supervisor in the next 2 to 3 days according to patient report. Patient advised to follow-up with his primary care physician and to keep up his appointment with loan processing supervisor and to return to the ER if he develop any new symptoms. Critical Care Time: Yes Critical care time in (mins) excluding proc time.: 30 Critical care attestation.: If time is entered above; I have spent that time in minutes in the direct care of this critically ill patient, excluding procedure time. ED Disposition Clinical Impression: Acute on chronic anemia Disposition: - TO HOME OR SELFCARE Is pt being admited?: No Condition: Stable Referrals: PRIMARY CARE, [Primary Care Provider] - 3-5 Days
[2020-10-17] MEDS ORDERED: SODIUM CHLORIDE 0.9% 500 ML 500 ML ONE ×2 (00:46→08:12)
[2020-10-17 05:51] LABS: Hematocrit 22.9 % (35.5-45.6); Hemoglobin 6.9 gm/dl (11.8-15.2)
[2020-10-17] MEDS ORDERED: SODIUM CHLORIDE 0.9% 500 ML 500 ML IV ONE (07:23)
[2020-10-17 12:15] LABS: Hematocrit 27.8 % (35.5-45.6); Hemoglobin 8.5 gm/dl (11.8-15.2)
[2020-10-17 15:23] VITALS: BP 155/82
--- NOTE | 2020-10-19 09:13 | Electrocardiograph Report ---
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: [facility] : 1955 Requested By: SURENDRA GUADALUPE Order Number: [id number] Reading MD: Baldo Frias Measurements Intervals [place] Rate: 84 P: 56 ID: [id number] QRS: -49 QRSD: 82 T: 27 QT: 376 QTc: 446 Interpretive Statements Sinus rhythm Left anterior fascicular block Nonspecific T abnormalities, anterior leads Borderline ST elevation, lateral leads Compared to ECG 08/19/2020 01:12:40 Left anterior fascicular block now present T-wave abnormality now present Sinus arrhythmia no longer present Ventricular premature complex(es) no longer present Left-axis deviation no longer present Possible ischemia no longer present ST (T wave) deviation still present Electronically Signed On 10-19-2020 9:13:08 EDT by Baldo Frias
== END 2020-10-17 18:32 | disposition home or self-care (01) ==
LOC: ED 13:49
DX: D64.9 Anemia, unspecified (principal); E11.9 Type 2 diabetes mellitus without complications; F17.200 Nicotine dependence, unspecified, uncomplicated
CPT/HCPCS: 36415; 80053; 84484; 85007; 85014; 85018; 85025; 85610; 85730; 86850; 86900; 86901; 86922; 93005; 99291; J7040; P9016; 36430

== ENCOUNTER 2020-12-21 10:45 | Inpatient (IN) | payer MEDICAID ==
[2020-12-21] MEDS ORDERED: traMADol 50 MG TAB PO ONE (12:04)
[2020-12-21 13:28] LABS: INR 1.03 (0.87-1.13)
[2020-12-21 13:29] LABS: Partial Thromboplastin Time 29.5 Sec. (24.2-36.6)
[2020-12-21 13:44] LABS: Blood Urea Nitrogen 12 mg/dL (9-20); Calcium 8.9 mg/dL (8.4-10.2); Hemolysis Index 0
[2020-12-21 13:47] LABS: BUN/Creatinine Ratio 17
[2020-12-21 14:17] LABS: Mean Corpuscular HGB Conc 27 % (32-34)
[2020-12-21 15:07] LABS: Hemoglobin 3.5 gm/dl (11.8-15.2); Mean Corpuscular Volume 64 fl (84-94); Platelet Count 58 K/mm3 (140-440); Red Cell Distribution Width 20.7 % (13.2-15.2)
[2020-12-21] MEDS ORDERED: SODIUM CHLORIDE 0.9% 500 ML 500 ML IV ONE ×2 (15:16→17:15)
[2020-12-21] MEDS ORDERED: MORPHINE 2 MG/1 ML INJ IV ONE (16:17)
--- NOTE | 2020-12-21 16:21 | Emergency Department Report ---
ED General Adult HPI - General Chief complaint: Dizziness Stated complaint: LFT LEG PAIN Time Seen by Provider: 12/21/20 11:59 Source: patient Mode of arrival: Ambulatory Limitations: No Limitations - History of Present Illness Initial comments: Patient is a 65-year-old F Romanian male with undiagnosed hematologic condition which has resulted in the patient receiving multiple transfusions in the past. Patient is has 2 complaints today. Patient signed in for left knee pain. Patient states this is chronic. Is worse when he walks and is aching and throbbing. Additionally the patient states that he also has been fatigued over the last week. Believes that his hemoglobin is dropped. Denies any hematuria hematochezia or melena. States that he has no pain. Patient is fatigue especially with exertion and has some mild shortness of breath at times. Denies cough cold congestion fevers or chills. Severity scale (0 -10): 5 - Related Data Previous Rx's Medication Instructions Recorded Last Taken Type Insulin Regular, Human [HumuLIN R] 0 unit SQ AC #1 vial 08/20/20 Unknown Rx Metoprolol [Lopressor TAB] 25 mg PO BID #60 tablet 08/20/20 Unknown Rx Allergies Allergy/AdvReac Type Severity Reaction Status Date / Time No Known Allergies Allergy Verified 08/27/17 07:25 ED Review of Systems ROS: Stated complaint: LFT LEG PAIN Other details as noted in HPI Comment: All other systems reviewed and negative ED Past Medical Hx - Past Medical History Previous Medical History?: Yes Hx Hypertension: No Hx Heart Attack/AMI: No Hx Congestive Heart Failure: No Hx Diabetes: Yes Hx Deep Vein Thrombosis: No Hx Liver Disease: No Hx Renal Disease: No Hx Sickle Cell Disease: No Hx Arthritis: Yes Hx Seizures: No Hx Asthma: No Hx COPD: No Hx Dementia: No Hx HIV: No Additional medical history: ANEMIA. Proximal gut and multiple colon AVM's (endoscopy/colonoscopy March 2017). hep C - Surgical History Past Surgical History?: Yes Hx Coronary Stent: No Hx Pacemaker: No Hx Internal Defibrillator: No - Social History Smoking Status: Current Every Day Smoker Substance Use Type: None - Medications Home Medications: Home Medications Medication Instructions Recorded Confirmed Last Taken Type Insulin Regular, Human [HumuLIN R] 0 unit SQ AC #1 vial 08/20/20 Unknown Rx Metoprolol [Lopressor TAB] 25 mg PO BID #60 tablet 08/20/20 Unknown Rx ED Physical Exam - General Limitations: No Limitations General appearance: alert, in no apparent distress - Head Head exam: Present: atraumatic, normocephalic - Eye Eye exam: Present: normal appearance, PERRL, EOMI - ENT ENT exam: Present: mucous membranes moist - Neck Neck exam: Present: normal inspection - Respiratory Respiratory exam: Present: normal lung sounds bilaterally. Absent: respiratory distress, wheezes, rales, rhonchi - Cardiovascular Cardiovascular Exam: Present: regular rate, normal rhythm, normal heart sounds. Absent: systolic murmur, diastolic murmur, rubs, gallop - GI/Abdominal GI/Abdominal exam: Present: soft, normal bowel sounds. Absent: distended, tenderness, guarding, rebound, rigid - Rectal Rectal exam: Present: deferred, heme (+) stool. Absent: black stool, bloody stool - Extremities Exam Extremities exam: Present: normal inspection - Back Exam Back exam: Present: normal inspection - Neurological Exam Neurological exam: Present: alert, oriented X3 - Psychiatric Psychiatric exam: Present: normal affect, normal mood - Skin Skin exam: Present: warm, dry, intact, normal color. Absent: rash ED Course Vital Signs 12/21/20 11:19 Temperature 98 F Pulse Rate 95 H Respiratory 16 Rate Blood Pressure 107/53 [Left] O2 Sat by Pulse 95 Oximetry ED Medical Decision Making - Lab Data Result diagrams: 12/21/20 12:43 12/21/20 12:43 Lab Results 12/21/20 12/21/20 12/21/20 Range/Units 12:43 12:43 12:43 WBC 2.2 L (4.5-11.0) K/mm3 RBC 2.10 L (3.65-5.03) M/mm3 Hgb 3.5 L* (11.8-15.2) gm/dl Hct 13.0 L* (35.5-45.6) % MCV 64 L (84-94) fl MCH 17 L (28-32) pg MCHC 27 L (32-34) % RDW 20.7 H (13.2-15.2) % Plt Count 58 L (140-440) K/mm3 PT 14.6 (12.2-14.9) Sec. INR 1.03 (0.87-1.13) APTT 29.5 (24.2-36.6) Sec. Sodium 141 (137-145) mmol/L Potassium 3.9 (3.6-5.0) mmol/L Chloride 105.0 (98-107) mmol/L Carbon Dioxide 22 (22-30) mmol/L Anion Gap 18 mmol/L BUN 12 (9-20) mg/dL Creatinine 0.7 L (0.8-1.3) mg/dL Estimated GFR > 60 ml/min BUN/Creatinine Ratio 17 % Glucose 163 H (75-100) mg/dL Calcium 8.9 (8.4-10.2) mg/dL - Medical Decision Making Patient states that he has had a stool check multiple times during these bouts of anemia he has never had a GI bleed. Patient trace guaiac positive today. Stool does not appear melanotic. Patient will be admitted for for his pancytopenia. Transfusion has been ordered here in emergency department. Critical Care Time: Yes (30) Critical care attestation.: If time is entered above; I have spent that time in minutes in the direct care of this critically ill patient, excluding procedure time. ED Disposition Clinical Impression: Pancytopenia, Symptomatic anemia, Arthralgia Disposition: 01 HOME / SELF CARE / HOMELESS Is pt being admited?: Yes Does the pt Need Aspirin: No Condition: Stable Time of Disposition: 16:22
--- NOTE | 2020-12-21 16:48 | History and Physical Report ---
History of Present Illness Chief complaint: I feel dizzy and weak History of present illness: 65 YO Male with DM, OA, AVM complicated by Symptomatic Anemia, Nicotine Dependence, HCV, GERD presents to ED for evaluation. Pt reports "I feel dizzy and weak and lightheaded". Pt states that he has experienced generalized we akness, decreased exercise tolerance, and lightheadedness over the past 1 week with worsening symptoms over the past 3 days. Pt transported to [facility] via private vehicle for further care and evaluation of the aforementioned symptoms. Pt seen and evaluated in ED. All labs and imaging studies reviewed. Pt found to have symptomatic anemia with a hemoglobin of 3.5 as well as Hemoccult positive stool, systolic blood pressure of 100 mmHg. Pt is dizzy and is unable to tolerate orthostatic hypotension measurements. Patient admitted to medical floor and initiated on GI bleed protocol. Patient transfused with packed red blood cells, GI team consulted. Patient denies fever, chills, chest pain, palpitation, productive cough, skin rash, recent ill contact, or known exposure to COVID-19, bright red blood per rectum, melanotic stool, recent ill contacts. Advanced care planning conducted in ED. Past History Past Medical History: anemia, diabetes, other (See HPI) Past Surgical History: Other (Endoscopy) Social history: single, smoking Family history: diabetes, hypertension Medications and Allergies Allergies Allergy/AdvReac Type Severity Reaction Status Date / Time No Known Allergies Allergy Verified 08/27/17 07:25 Home Medications Medication Instructions Recorded Confirmed Last Taken Type Insulin Regular, Human [HumuLIN R] 0 unit SQ AC #1 vial 08/20/20 Unknown Rx Metoprolol [Lopressor TAB] 25 mg PO BID #60 tablet 08/20/20 Unknown Rx Review of Systems Constitutional: weakness, no weight loss, no weight gain, no fever, no sweats Ears, nose, mouth and throat: no ear pain, no tinnitis, no decreased hearing Cardiovascular: no chest pain, no orthopnea, no rapid/irregular heart beat, no edema, no lightheadedness Respiratory: no cough, no cough with sputum, no hemoptysis, no shortness of breath Gastrointestinal: no abdominal pain, no nausea, no vomiting, no diarrhea, no constipation Genitourinary Male: no hematuria, no flank pain, no discharge, no urinary frequency Rectal: no pain, no incontinence, no bleeding Musculoskeletal: no neck stiffness, no neck pain, no arm numbness/tingling, no low back pain, no shooting leg pain Integumentary: no rash, no pruritis, no redness, no sores, no wounds Neurological: no transient paralysis, no paralysis, no parathesias Psychiatric: no anxiety, no change in sleep habits, no insomnia, no change in appetite, no disorientation Endocrine: no cold intolerance, no polyphagia, no excessive thirst, no nocturia Hematologic/Lymphatic: no easy bruising, no lymphadenopathy Allergic/Immunologic: no allergic rhinitis, no wheezing, no persistent infections Exam - Constitutional Vitals: Temp Pulse Resp BP Pulse Ox 98 F 95 H 16 107/53 95 12/21/20 11:19 12/21/20 11:19 12/21/20 11:19 12/21/20 11:19 12/21/20 11:19 General appearance: Present: mild distress - EENT Eyes: Present: PERRL (Conjunctival pallor) ENT: hearing intact, clear oral mucosa - Neck Neck: Present: supple, normal ROM - Respiratory Respiratory effort: normal Respiratory: bilateral: CTA - Cardiovascular Heart Sounds: Present: S1 & S2. Absent: rub, click - Extremities Extremities: pulses symmetrical, No edema Extremity abnormal: cyanosis Peripheral Pulses: within normal limits - Abdominal General gastrointestinal: Present: soft, non-tender, non-distended, normal bowel sounds Male genitourinary: Present: normal - Integumentary Integumentary: Present: clear, warm, dry - Musculoskeletal Musculoskeletal: generalized weakness - Psychiatric Psychiatric: appropriate mood/affect, intact judgment & insight - Neurologic Neurologic: CNII-XII intact, moves all extremities Results - Labs CBC & Chem 7: 12/21/20 12:43 12/21/20 12:43 Labs: Abnormal lab results 12/21/20 12/21/20 Range/Units 12:43 12:43 WBC 2.2 L (4.5-11.0) K/mm3 RBC 2.10 L (3.65-5.03) M/mm3 Hgb 3.5 L* (11.8-15.2) gm/dl Hct 13.0 L* (35.5-45.6) % MCV 64 L (84-94) fl MCH 17 L (28-32) pg MCHC 27 L (32-34) % RDW 20.7 H (13.2-15.2) % Plt Count 58 L (140-440) K/mm3 Creatinine 0.7 L (0.8-1.3) mg/dL Glucose 163 H (75-100) mg/dL Assessment and Plan - Patient Problems (1) GI bleed Current Visit: No Status: Acute Plan to address problem: GI bleed protocol: Patient admitted to telemetry, GI team consulted, packed red blood cell transfusion, PPI therapy, CBC, repeat CBC in a.m., endoscopy as per GI team (2) Symptomatic anemia Current Visit: No Status: Acute Plan to address problem: Primary blood cell transfusion, diuresis with Lasix after transfusion of second unit packed red blood cells. (3) Diabetes Current Visit: No Status: Acute Plan to address problem: Consistent carbohydrate diet, hypoglycemia protocol, insulin protocol, (4) DVT prophylaxis Current Visit: No Status: Acute Plan to address problem: SCD to bilateral lower extremities while in bed, hold anticoagulation for now due to active GI bleed (5) Advance care planning Current Visit: No Status: Acute Plan to address problem: Disease education conducted, care plan discussed, diagnoses discussed, prognosis discussed, patient is full code, patient knowledges understanding and agreement with care plan, +30 minutes.
[2020-12-21] MEDS ORDERED: HYDROmorphone 1 MG/1 ML INJ IV PRN (17:11)
[2020-12-21] MEDS ORDERED: ALBUTEROL 2.5 MG/3 ML NEBU IH PRN (17:11)
[2020-12-21] MEDS ORDERED: ONDANSETRON 4 MG/2 ML INJ IV PRN (17:11)
[2020-12-21] MEDS ORDERED: FUROSEMIDE 20 MG/2 ML INJ IV ONE (17:16)
[2020-12-21] MEDS: oxyCODONE /ACETAMINOPHEN 5-325MG TAB PO PRN ×2 (18:46→23:58)
[2020-12-21 21:04] LABS: Total Cells Counted 100
[2020-12-21 21:06] LABS: Anisocytosis 1+; Hypochromasia 2+; Ovalocytes 1+; Schistocytes Rare; Tear Drop Cells Rare
[2020-12-21] MEDS: PANTOPRAZOLE 40 MG INJ IV SCH (22:03)
[2020-12-21] MEDS: ACETAMINOPHEN 325 MG TAB PO PRN (22:04)
[2020-12-22] MEDS ORDERED: SODIUM CHLORIDE 0.9% 500 ML 500 ML IV ONE (00:36)
[2020-12-22] MEDS: SODIUM CHLORIDE 0.9% 1000 ML 1,000 ML IV SCH (06:10)
--- NOTE | 2020-12-22 09:18 | Progress Note ---
Assessment and Plan Assessment and plan: GI bleed Symptomatic anemia Diabetes mellitus type 2. 12/22/2020. GI consultation pending. Transfuse PRBCs as needed for hemoglobin < 7. Patient is s/p 4 units PRBCs. Await follow-up CBC. Continue Protonix 40 mg IV twice daily. History Interval history: No new issues overnight Hospitalist Physical - Constitutional Vitals: Temp Pulse Resp BP Pulse Ox 102.3 F H 111 H 18 142/69 99 12/22/20 08:10 12/22/20 08:10 12/22/20 08:10 12/22/20 08:10 12/22/20 08:10 General appearance: Present: mild distress - EENT Eyes: Present: PERRL, EOM intact ENT: hearing intact, clear oral mucosa, dentition normal - Neck Neck: Present: supple, normal ROM - Respiratory Respiratory effort: normal Respiratory: bilateral: CTA - Cardiovascular Rhythm: regular Heart Sounds: Present: S1 & S2. Absent: gallop, rub - Extremities Extremities: no ischemia, No edema, Full ROM - Abdominal General gastrointestinal: soft, non-tender, non-distended, normal bowel sounds - Integumentary Integumentary: Present: clear, warm, dry - Neurologic Neurologic: CNII-XII intact, moves all extremities Results - Labs CBC & Chem 7: 12/21/20 12:43 12/21/20 12:43 Labs: Laboratory Last Values WBC 2.2 K/mm3 (4.5-11.0) L 12/21/20 12:43 RBC 2.10 M/mm3 (3.65-5.03) L 12/21/20 12:43 Hgb 3.5 gm/dl (11.8-15.2) L* 12/21/20 12:43 Hct 13.0 % (35.5-45.6) L* 12/21/20 12:43 MCV 64 fl (84-94) L 12/21/20 12:43 MCH 17 pg (28-32) L 12/21/20 12:43 MCHC 27 % (32-34) L 12/21/20 12:43 RDW 20.7 % (13.2-15.2) H 12/21/20 12:43 Plt Count 58 K/mm3 (140-440) L 12/21/20 12:43 Add Manual Diff Complete 12/21/20 12:43 Total Counted 100 12/21/20 12:43 Seg Neuts % (Manual) 42.0 % (40.0-70.0) 12/21/20 12:43 Lymphocytes % (Manual) 49.0 % (13.4-35.0) H 12/21/20 12:43 Monocytes % (Manual) 9.0 % (0.0-7.3) H 12/21/20 12:43 Nucleated RBC % Not Reportable 12/21/20 12:43 Seg Neutrophils # Man 0.9 K/mm3 (1.8-7.7) L 12/21/20 12:43 Band Neutrophils # 0.0 K/mm3 12/21/20 12:43 Lymphocytes # (Manual) 1.1 K/mm3 (1.2-5.4) L 12/21/20 12:43 Abs React Lymphs (Man) 0.0 K/mm3 12/21/20 12:43 Monocytes # (Manual) 0.2 K/mm3 (0.0-0.8) 12/21/20 12:43 Eosinophils # (Manual) 0.0 K/mm3 (0.0-0.4) 12/21/20 12:43 Basophils # (Manual) 0.0 K/mm3 (0.0-0.1) 12/21/20 12:43 Metamyelocytes # 0.0 K/mm3 12/21/20 12:43 Myelocytes # 0.0 K/mm3 12/21/20 12:43 Promyelocytes # 0.0 K/mm3 12/21/20 12:43 Blast Cells # 0.0 K/mm3 12/21/20 12:43 WBC Morphology Not Reportable 12/21/20 12:43 Hypersegmented Neuts Not Reportable 12/21/20 12:43 Hyposegmented Neuts Not Reportable 12/21/20 12:43 Hypogranular Neuts Not Reportable 12/21/20 12:43 Smudge Cells Not Reportable 12/21/20 12:43 Toxic Granulation Not Reportable 12/21/20 12:43 Toxic Vacuolation Not Reportable 12/21/20 12:43 Dohle Bodies Not Reportable 12/21/20 12:43 Pelger-Huet Anomaly Not Reportable 12/21/20 12:43 Katia Rods Not Reportable 12/21/20 12:43 Platelet Estimate Not Reportable 12/21/20 12:43 Clumped Platelets Not Reportable 12/21/20 12:43 Plt Clumps, EDTA Not Reportable 12/21/20 12:43 Large Platelets Not Reportable 12/21/20 12:43 Giant Platelets Not Reportable 12/21/20 12:43 Platelet Satelliting Not Reportable 12/21/20 12:43 Plt Morphology Comment Not Reportable 12/21/20 12:43 RBC Morphology Not Reportable 12/21/20 12:43 Dimorphic RBCs Not Reportable 12/21/20 12:43 Polychromasia Not Reportable 12/21/20 12:43 Hypochromasia 2+ 12/21/20 12:43 Poikilocytosis Not Reportable 12/21/20 12:43 Anisocytosis 1+ 12/21/20 12:43 Microcytosis 1+ 12/21/20 12:43 Macrocytosis Not Reportable 12/21/20 12:43 Spherocytes Not Reportable 12/21/20 12:43 Pappenheimer Bodies Not Reportable 12/21/20 12:43 Sickle Cells Not Reportable 12/21/20 12:43 Target Cells Not Reportable 12/21/20 12:43 Tear Drop Cells Rare 12/21/20 12:43 Ovalocytes 1+ 12/21/20 12:43 Helmet Cells Not Reportable 12/21/20 12:43 [place] Bodies Not Reportable 12/21/20 12:43 [place] Rings Not Reportable 12/21/20 12:43 Luke Cells Not Reportable 12/21/20 12:43 Bite Cells Not Reportable 12/21/20 12:43 Crenated Cell Not Reportable 12/21/20 12:43 Elliptocytes Not Reportable 12/21/20 12:43 Acanthocytes (Spur) Not Reportable 12/21/20 12:43 Rouleaux Not Reportable 12/21/20 12:43 Hemoglobin C Crystals Not Reportable 12/21/20 12:43 Schistocytes Rare 12/21/20 12:43 Malaria parasites Not Reportable 12/21/20 12:43 Jl Bodies Not Reportable 12/21/20 12:43 Hem Pathologist Commnt No 12/21/20 12:43 PT 14.6 Sec. (12.2-14.9) 12/21/20 12:43 INR 1.03 (0.87-1.13) 12/21/20 12:43 APTT 29.5 Sec. (24.2-36.6) 12/21/20 12:43 Sodium 141 mmol/L (137-145) 12/21/20 12:43 Potassium 3.9 mmol/L (3.6-5.0) 12/21/20 12:43 Chloride 105.0 mmol/L (98-107) 12/21/20 12:43 Carbon Dioxide 22 mmol/L (22-30) 12/21/20 12:43 Anion Gap 18 mmol/L 12/21/20 12:43 BUN 12 mg/dL (9-20) 12/21/20 12:43 Creatinine 0.7 mg/dL (0.8-1.3) L 12/21/20 12:43 Estimated GFR > 60 ml/min 12/21/20 12:43 BUN/Creatinine Ratio 17 % 12/21/20 12:43 Glucose 163 mg/dL (75-100) H 12/21/20 12:43 Calcium 8.9 mg/dL (8.4-10.2) 12/21/20 12:43 Blood Type A POSITIVE 12/21/20 15:30 Antibody Screen Negative 12/21/20 15:30 Crossmatch See Detail 12/21/20 15:30 Parker/IV: Voiding Method Urinal Active Medications - Current Medications Current Medications: Generic Name Dose Route Start Last Admin Trade Name Freq PRN Reason Stop Dose Admin Acetaminophen 650 mg 12/21/20 17:11 12/21/20 22:04 Acetaminophen 325 Mg Tab PO 650 mg Q4H PRN Administration Pain MILD(1-3)/Fever >100.5/DURÁN Albuterol 2.5 mg 12/21/20 17:11 Albuterol 2.5 Mg/3 Ml Nebu IH Q4HRT PRN Shortness Of Breath Hydromorphone HCl 0.25 mg 12/21/20 17:11 Hydromorphone 1 Mg/1 Ml Inj IV Q23H PRN Pain, Moderate (4-6) Sodium Chloride 1,000 mls @ 42 mls/hr 12/21/20 17:15 12/22/20 06:10 Nacl 0.9% 1000 Ml IV 42 mls/hr DIRECT LUCIAN Administration Sodium Chloride 500 mls @ 50 mls/hr 12/22/20 00:36 12/22/20 00:12 Nacl 0.9% 500 Ml IV 12/22/20 10:35 50 mls/hr ONCE ONE Administration Ondansetron HCl 4 mg 12/21/20 17:11 12/22/20 03:01 Ondansetron 4 Mg/2 Ml Inj IV 4 mg Q8H PRN Administration Nausea And Vomiting Oxycodone/Acetaminophen 1 tab 12/21/20 17:11 12/21/20 23:58 Oxycodone /Acetaminophen 5-325mg Tab PO 1 tab Q16H PRN Administration Pain, Moderate (4-6) Pantoprazole Sodium 40 mg 12/21/20 22:00 12/21/20 22:03 Pantoprazole 40 Mg Inj IV 40 mg BID LUCIAN Administration Sodium Chloride 10 ml 12/21/20 22:00 12/21/20 22:03 Sodium Chloride 0.9% 10 Ml Flush Syringe IV 10 ml BID LUCIAN Administration Sodium Chloride 10 ml 12/21/20 17:11 Sodium Chloride 0.9% 10 Ml Flush Syringe IV PRN PRN LINE FLUSH
[2020-12-22] MEDS: PANTOPRAZOLE 40 MG INJ IV SCH ×2 (10:10→22:55)
[2020-12-22 15:13] LABS: Hematocrit 27.6 % (35.5-45.6); Hemoglobin 8.7 gm/dl (11.8-15.2); Mean Corpuscular HGB Conc 32 % (32-34); Mean Corpuscular Volume 77 fl (84-94); Red Blood Count 3.61 M/mm3 (3.65-5.03)
[2020-12-22 15:14] LABS: Red Cell Distribution Width 30.3 % (13.2-15.2)
--- NOTE | 2020-12-22 15:23 | Gastroenterology Consultation ---
History of Present Illness - Reason for Consult Consult date: 12/22/20 anemia Requesting physician: ESPINOZA GLASGOW - History of Present Illness This is a 65 yo male with pmh of chronic anemia, thrombocytopenia, and DM admitted overnight for symptomatic anemia with hgb down to 3.5. Patient was admitted multiple times this year for symptomatic anemia with Hgb severely low down to 2-3 range. He denies any blood in the stools, melena, abdominal pain, nausea/vomiting. [place] weak for the past 1 week and came to the ED. He was seen in 03/2020 admission with GI and had EGD/colonoscopy done with Dr. Sellers without any GI pathology to explain for the anemia. He was seen by hem/onc and thought to have autoimmune, hemolytic process. He was given IVIG and steroids. He was again admitted in 08/2020 for Hgb down to 3 range and received transfusion. He was referred for outpatient hematology evaluation. He states he only sees his PCP and has not seen any specialist outpatient. Medication list reviewed. Prior endoscopy: 03/2020 Dr. Sellers EGD: hiatal hernia - gastritis - negative other Colon: poor prep, completed - no obvious pathology noted Past History Past Medical History: anemia, diabetes, other (See HPI) Past Surgical History: Other (Endoscopy) Social history: single, smoking Family history: diabetes, hypertension Medications and Allergies Allergies Allergy/AdvReac Type Severity Reaction Status Date / Time No Known Allergies Allergy Verified 08/27/17 07:25 Home Medications Medication Instructions Recorded Confirmed Last Taken Type Insulin Regular, Human [HumuLIN R] 0 unit SQ AC #1 vial 08/20/20 Unknown Rx Metoprolol [Lopressor TAB] 25 mg PO BID #60 tablet 08/20/20 Unknown Rx Active Meds: Active Medications Acetaminophen (Acetaminophen 325 Mg Tab) 650 mg PO Q4H PRN PRN Reason: Pain MILD(1-3)/Fever >100.5/DURÁN Last Admin: 12/21/20 22:04 Dose: 650 mg Documented by: Albuterol (Albuterol 2.5 Mg/3 Ml Nebu) 2.5 mg IH Q4HRT PRN PRN Reason: Shortness Of Breath Hydromorphone HCl (Hydromorphone 1 Mg/1 Ml Inj) 0.25 mg IV Q23H PRN PRN Reason: Pain, Moderate (4-6) Sodium Chloride (Nacl 0.9% 1000 Ml) 1,000 mls @ 42 mls/hr IV DIRECT [facility] Last Admin: 12/22/20 06:10 Dose: 42 mls/hr Documented by: Ondansetron HCl (Ondansetron 4 Mg/2 Ml Inj) 4 mg IV Q8H PRN PRN Reason: Nausea And Vomiting Last Admin: 12/22/20 03:01 Dose: 4 mg Documented by: Oxycodone/Acetaminophen (Oxycodone /Acetaminophen 5-325mg Tab) 1 tab PO Q16H PRN PRN Reason: Pain, Moderate (4-6) Last Admin: 12/21/20 23:58 Dose: 1 tab Documented by: Pantoprazole Sodium (Pantoprazole 40 Mg Inj) 40 mg IV BID [facility] Last Admin: 12/22/20 10:10 Dose: 40 mg Documented by: Sodium Chloride (Sodium Chloride 0.9% 10 Ml Flush Syringe) 10 ml IV BID [facility] Last Admin: 12/22/20 10:10 Dose: 10 ml Documented by: Sodium Chloride (Sodium Chloride 0.9% 10 Ml Flush Syringe) 10 ml IV PRN PRN PRN Reason: LINE FLUSH Review of Systems - Review of Systems All systems: negative Constitutional: no weight loss, no weight gain Cardiovascular: no chest pain Respiratory: no cough, no shortness of breath Gastrointestinal: no abdominal pain, no nausea, no vomiting, no BRBPR, no melena, no hematochezia Neurological: weakness Psychiatric: no anxiety Hematologic/Lymphatic: easy bruising Allergic/Immunologic: wheezing Exam - Constitutional Vital Signs: Temp Pulse Resp BP Pulse Ox 97.8 F 101 H 18 149/74 96 12/22/20 11:47 12/22/20 11:47 12/22/20 11:47 12/22/20 11:47 12/22/20 11:47 General appearance: no acute distress - EENT Eyes: EOM intact ENT: hearing intact - Neck Neck: supple - Respiratory Respiratory effort: normal - Cardiovascular Rhythm: regular Heart Sounds: Present: S1 & S2 - Gastrointestinal General gastrointestinal: Present: soft, non-tender, non-distended - Integumentary Integumentary: Present: clear - Neurologic Neurological: alert and oriented x3 - Psychiatric Psychiatric: appropriate mood/affect - Labs CBC & Chem 7: 12/22/20 14:55 12/21/20 12:43 Lab Results: Laboratory Results - last 24 hr 12/21/20 12/21/20 12/22/20 12:43 15:30 14:55 WBC 3.4 L RBC 3.61 L Hgb 8.7 L D Hct 27.6 L D MCV 77 L MCH 24 L MCHC 32 RDW 30.3 H Add Manual Diff Complete Total Counted 100 Seg Neuts % (Manual) 42.0 Lymphocytes % (Manual) 49.0 H Monocytes % (Manual) 9.0 H Nucleated RBC % Not Reportable Seg Neutrophils # Man 0.9 L Band Neutrophils # 0.0 Lymphocytes # (Manual) 1.1 L Abs React Lymphs (Man) 0.0 Monocytes # (Manual) 0.2 Eosinophils # (Manual) 0.0 Basophils # (Manual) 0.0 Metamyelocytes # 0.0 Myelocytes # 0.0 Promyelocytes # 0.0 Blast Cells # 0.0 WBC Morphology Not Reportable Hypersegmented Neuts Not Reportable Hyposegmented Neuts Not Reportable Hypogranular Neuts Not Reportable Smudge Cells Not Reportable Toxic Granulation Not Reportable Toxic Vacuolation Not Reportable Dohle Bodies Not Reportable Pelger-Huet Anomaly Not Reportable Katia Rods Not Reportable Platelet Estimate Not Reportable Clumped Platelets Not Reportable Plt Clumps, EDTA Not Reportable Large Platelets Not Reportable Giant Platelets Not Reportable Platelet Satelliting Not Reportable Plt Morphology Comment Not Reportable RBC Morphology Not Reportable Dimorphic RBCs Not Reportable Polychromasia Not Reportable Hypochromasia 2+ Poikilocytosis Not Reportable Anisocytosis 1+ Microcytosis 1+ Macrocytosis Not Reportable Spherocytes Not Reportable Pappenheimer Bodies Not Reportable Sickle Cells Not Reportable Target Cells Not Reportable Tear Drop Cells Rare Ovalocytes 1+ Helmet Cells Not Reportable Su[place] Bodies Not Reportable [place] Rings Not Reportable [place] Cells Not Reportable Bite Cells Not Reportable Crenated Cell Not Reportable Elliptocytes Not Reportable Acanthocytes (Spur) Not Reportable Rouleaux Not Reportable Hemoglobin C Crystals Not Reportable Schistocytes Rare Malaria parasites Not Reportable Jl Bodies Not Reportable Hem Pathologist Commnt No Blood Type A POSITIVE Antibody Screen Negative Crossmatch See Detail Assessment and Plan This is a 65 yo male with pmh of chronic anemia, thrombocytopenia, and DM admitted for symptomatic anemia with hgb down to 3.5. # Symptomatic anemia - multiple admissions this year for symptomatic anemia with Hgb severely low down to 2-3 range. - no overt signs of GI bleeding. - He was seen in 03/2020 admission with GI and had EGD/colonoscopy done with Dr. Sellers without any GI pathology to explain for the anemia. Rec - would hold off repeat EGD/colonoscopy given no signs of GI bleeding. - monitor H/H. - recommend hem/onc evaluation for pancytopenia. Previously was given IVIG and steroids for autoimmune process. - consider outpatient pillcam for small bowel evaluation. - Patient Problems (1) Pancytopenia Current Visit: No Status: Acute (2) Symptomatic anemia Current Visit: No Status: Acute
[2020-12-22 15:26] LABS: Platelet Count 35 K/mm3 (140-440)
[2020-12-22 16:01] LABS: Anisocytosis 3+; Total Cells Counted 100
[2020-12-22 16:02] LABS: Hypochromasia 1+; Large Platelets Rare; Ovalocytes Few; Platelet Estimate Consistent w Auto; Poikilocytosis 1+; Tear Drop Cells Few
[2020-12-22] MEDS: ACETAMINOPHEN 325 MG TAB PO PRN (23:53)
--- NOTE | 2020-12-23 08:58 | Gastroenterology Progress Note ---
Assessment and Plan This is a 65 yo male with pmh of chronic anemia, thrombocytopenia, and DM admitted for symptomatic anemia with hgb down to 3.5. # Symptomatic anemia - multiple admissions this year for symptomatic anemia with Hgb severely low down to 2-3 range. - no overt signs of GI bleeding. - He was seen in 03/2020 admission with GI and had EGD/colonoscopy done with Dr. Sellers without any GI pathology to explain for the anemia. - hgb responded to blood transfusion. Rec - would hold off repeat EGD/colonoscopy given no signs of GI bleeding. - recommend hem/onc evaluation for pancytopenia. Previously was given IVIG and steroids for autoimmune process. - consider outpatient pillcam for small bowel evaluation if persistent anemia. - will sign off. please call as needed. - Patient Problems (1) Pancytopenia Current Visit: No Status: Acute (2) Symptomatic anemia Current Visit: No Status: Acute Subjective Date of service: 12/23/20 Interval history: No acute events overnight. no bleeding symptoms. No abdominal pain. Objective - Constitutional Vitals: Temp Pulse Resp BP Pulse Ox 98.0 F 82 20 110/60 99 12/23/20 07:32 12/23/20 07:32 12/23/20 07:32 12/23/20 07:32 12/23/20 03:45 General appearance: no acute distress - EENT ENT: hearing intact - Respiratory Respiratory effort: normal - Cardiovascular Rhythm: regular Heart Sounds: Present: S1 & S2 - Gastrointestinal General gastrointestinal: Present: soft, non-tender, non-distended - Integumentary Integumentary: Present: clear, warm - Neurologic Neurological: alert and oriented x3 - Labs CBC & Chem 7: 12/22/20 14:55 12/21/20 12:43 Labs: Laboratory Results - last 24 hr 12/22/20 14:55 WBC 3.4 L RBC 3.61 L Hgb 8.7 L D Hct 27.6 L D MCV 77 L MCH 24 L MCHC 32 RDW 30.3 H Plt Count 35 L Add Manual Diff Complete Total Counted 100 Seg Neuts % (Manual) 95.0 H Band Neutrophils % 1.0 Lymphocytes % (Manual) 2.0 L Monocytes % (Manual) 1.0 Metamyelocytes % 1.0 Nucleated RBC % Not Reportable Seg Neutrophils # Man 3.2 Band Neutrophils # 0.0 Lymphocytes # (Manual) 0.1 L Abs React Lymphs (Man) 0.0 Monocytes # (Manual) 0.0 Eosinophils # (Manual) 0.0 Basophils # (Manual) 0.0 Metamyelocytes # 0.0 Myelocytes # 0.0 Promyelocytes # 0.0 Blast Cells # 0.0 WBC Morphology Not Reportable Hypersegmented Neuts Not Reportable Hyposegmented Neuts Not Reportable Hypogranular Neuts Not Reportable Smudge Cells Not Reportable Toxic Granulation Not Reportable Toxic Vacuolation Not Reportable Dohle Bodies Not Reportable Pelger-Huet Anomaly Not Reportable Katia Rods Not Reportable Platelet Estimate Consistent w auto Clumped Platelets Not Reportable Plt Clumps, EDTA Not Reportable Large Platelets Rare Giant Platelets Not Reportable Platelet Satelliting Not Reportable Plt Morphology Comment Not Reportable RBC Morphology Not Reportable Dimorphic RBCs Not Reportable Polychromasia Not Reportable Hypochromasia 1+ Poikilocytosis 1+ Anisocytosis 3+ Microcytosis Not Reportable Macrocytosis Not Reportable Spherocytes Not Reportable Pappenheimer Bodies Not Reportable Sickle Cells Not Reportable Target Cells Not Reportable Tear Drop Cells Few Ovalocytes Few Helmet Cells Not Reportable [place] Bodies Not Reportable [place] Rings Not Reportable Luke Cells Not Reportable Bite Cells Not Reportable Crenated Cell Not Reportable Elliptocytes Few Acanthocytes (Spur) Not Reportable Rouleaux Not Reportable Hemoglobin C Crystals Not Reportable Schistocytes Not Reportable Malaria parasites Not Reportable Jl Bodies Not Reportable Hem Pathologist Commnt No
--- NOTE | 2020-12-23 09:13 | Progress Note ---
Assessment and Plan Assessment and plan: GI bleed Symptomatic anemia Diabetes mellitus type 2. 12/22/2020. GI consultation pending. Transfuse PRBCs as needed for hemoglobin < 7. Patient is s/p 4 units PRBCs. Await follow-up CBC. Continue Protonix 40 mg IV twice daily. 12/23/2020. Patient has received a total of 4 units PRBCs. Consult for hematology. 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 Patient has previously received IVIG and steroids on an admission March of this year History Interval history: No new issues overnight Hospitalist Physical - Constitutional Vitals: Temp Pulse Resp BP Pulse Ox 98.0 F 82 20 110/60 99 12/23/20 07:32 12/23/20 07:32 12/23/20 07:32 12/23/20 07:32 12/23/20 03:45 General appearance: Present: no acute distress - EENT Eyes: Present: PERRL, EOM intact ENT: hearing intact, clear oral mucosa, dentition normal - Neck Neck: Present: supple, normal ROM - Respiratory Respiratory effort: normal Respiratory: bilateral: CTA - Cardiovascular Rhythm: regular Heart Sounds: Present: S1 & S2. Absent: gallop, rub - Extremities Extremities: no ischemia, No edema, Full ROM - Abdominal General gastrointestinal: soft, non-tender, non-distended, normal bowel sounds - Integumentary Integumentary: Present: clear, warm, dry - Neurologic Neurologic: CNII-XII intact, moves all extremities Results - Labs CBC & Chem 7: 12/22/20 14:55 12/21/20 12:43 Labs: Laboratory Last Values WBC 3.4 K/mm3 (4.5-11.0) L 12/22/20 14:55 RBC 3.61 M/mm3 (3.65-5.03) L 12/22/20 14:55 Hgb 8.7 gm/dl (11.8-15.2) L D 12/22/20 14:55 Hct 27.6 % (35.5-45.6) L D 12/22/20 14:55 MCV 77 fl (84-94) L 12/22/20 14:55 MCH 24 pg (28-32) L 12/22/20 14:55 MCHC 32 % (32-34) 12/22/20 14:55 RDW 30.3 % (13.2-15.2) H 12/22/20 14:55 Plt Count 35 K/mm3 (140-440) L 12/22/20 14:55 Add Manual Diff Complete 12/22/20 14:55 Total Counted 100 12/22/20 14:55 Seg Neuts % (Manual) 95.0 % (40.0-70.0) H 12/22/20 14:55 Band Neutrophils % 1.0 % 12/22/20 14:55 Lymphocytes % (Manual) 2.0 % (13.4-35.0) L 12/22/20 14:55 Monocytes % (Manual) 1.0 % (0.0-7.3) 12/22/20 14:55 Metamyelocytes % 1.0 % 12/22/20 14:55 Nucleated RBC % Not Reportable 12/22/20 14:55 Seg Neutrophils # Man 3.2 K/mm3 (1.8-7.7) 12/22/20 14:55 Band Neutrophils # 0.0 K/mm3 12/22/20 14:55 Lymphocytes # (Manual) 0.1 K/mm3 (1.2-5.4) L 12/22/20 14:55 Abs React Lymphs (Man) 0.0 K/mm3 12/22/20 14:55 Monocytes # (Manual) 0.0 K/mm3 (0.0-0.8) 12/22/20 14:55 Eosinophils # (Manual) 0.0 K/mm3 (0.0-0.4) 12/22/20 14:55 Basophils # (Manual) 0.0 K/mm3 (0.0-0.1) 12/22/20 14:55 Metamyelocytes # 0.0 K/mm3 12/22/20 14:55 Myelocytes # 0.0 K/mm3 12/22/20 14:55 Promyelocytes # 0.0 K/mm3 12/22/20 14:55 Blast Cells # 0.0 K/mm3 12/22/20 14:55 WBC Morphology Not Reportable 12/22/20 14:55 Hypersegmented Neuts Not Reportable 12/22/20 14:55 Hyposegmented Neuts Not Reportable 12/22/20 14:55 Hypogranular Neuts Not Reportable 12/22/20 14:55 Smudge Cells Not Reportable 12/22/20 14:55 Toxic Granulation Not Reportable 12/22/20 14:55 Toxic Vacuolation Not Reportable 12/22/20 14:55 Dohle Bodies Not Reportable 12/22/20 14:55 Pelger-Huet Anomaly Not Reportable 12/22/20 14:55 Katia Rods Not Reportable 12/22/20 14:55 Platelet Estimate Consistent w auto 12/22/20 14:55 Clumped Platelets Not Reportable 12/22/20 14:55 Plt Clumps, EDTA Not Reportable 12/22/20 14:55 Large Platelets Rare 12/22/20 14:55 Giant Platelets Not Reportable 12/22/20 14:55 Platelet Satelliting Not Reportable 12/22/20 14:55 Plt Morphology Comment Not Reportable 12/22/20 14:55 RBC Morphology Not Reportable 12/22/20 14:55 Dimorphic RBCs Not Reportable 12/22/20 14:55 Polychromasia Not Reportable 12/22/20 14:55 Hypochromasia 1+ 12/22/20 14:55 Poikilocytosis 1+ 12/22/20 14:55 Anisocytosis 3+ 12/22/20 14:55 Microcytosis Not Reportable 12/22/20 14:55 Macrocytosis Not Reportable 12/22/20 14:55 Spherocytes Not Reportable 12/22/20 14:55 Pappenheimer Bodies Not Reportable 12/22/20 14:55 Sickle Cells Not Reportable 12/22/20 14:55 Target Cells Not Reportable 12/22/20 14:55 Tear Drop Cells Few 12/22/20 14:55 Ovalocytes Few 12/22/20 14:55 Helmet Cells Not Reportable 12/22/20 14:55 Suarez-[place] Bodies Not Reportable 12/22/20 14:55 [place] Rings Not Reportable 12/22/20 14:55 Luke Cells Not Reportable 12/22/20 14:55 Bite Cells Not Reportable 12/22/20 14:55 Crenated Cell Not Reportable 12/22/20 14:55 Elliptocytes Few 12/22/20 14:55 Acanthocytes (Spur) Not Reportable 12/22/20 14:55 Rouleaux Not Reportable 12/22/20 14:55 Hemoglobin C Crystals Not Reportable 12/22/20 14:55 Schistocytes Not Reportable 12/22/20 14:55 Malaria parasites Not Reportable 12/22/20 14:55 Jl Bodies Not Reportable 12/22/20 14:55 Hem Pathologist Commnt No 12/22/20 14:55 PT 14.6 Sec. (12.2-14.9) 12/21/20 12:43 INR 1.03 (0.87-1.13) 12/21/20 12:43 APTT 29.5 Sec. (24.2-36.6) 12/21/20 12:43 Sodium 141 mmol/L (137-145) 12/21/20 12:43 Potassium 3.9 mmol/L (3.6-5.0) 12/21/20 12:43 Chloride 105.0 mmol/L (98-107) 12/21/20 12:43 Carbon Dioxide 22 mmol/L (22-30) 12/21/20 12:43 Anion Gap 18 mmol/L 12/21/20 12:43 BUN 12 mg/dL (9-20) 12/21/20 12:43 Creatinine 0.7 mg/dL (0.8-1.3) L 12/21/20 12:43 Estimated GFR > 60 ml/min 12/21/20 12:43 BUN/Creatinine Ratio 17 % 12/21/20 12:43 Glucose 163 mg/dL (75-100) H 12/21/20 12:43 Calcium 8.9 mg/dL (8.4-10.2) 12/21/20 12:43 Blood Type A POSITIVE 12/21/20 15:30 Antibody Screen Negative 12/21/20 15:30 Crossmatch See Detail 12/21/20 15:30 Parker/IV: Voiding Method Urinal Active Medications - Current Medications Current Medications: Generic Name Dose Route Start Last Admin Trade Name Freq PRN Reason Stop Dose Admin Acetaminophen 650 mg 12/21/20 17:11 12/22/20 23:53 Acetaminophen 325 Mg Tab PO 650 mg Q4H PRN Administration Pain MILD(1-3)/Fever >100.5/DURÁN Albuterol 2.5 mg 12/21/20 17:11 Albuterol 2.5 Mg/3 Ml Nebu IH Q4HRT PRN Shortness Of Breath Hydromorphone HCl 0.25 mg 12/21/20 17:11 Hydromorphone 1 Mg/1 Ml Inj IV Q23H PRN Pain, Moderate (4-6) Sodium Chloride 1,000 mls @ 42 mls/hr 12/21/20 17:15 12/22/20 06:10 Nacl 0.9% 1000 Ml IV 42 mls/hr DIRECT LUCIAN Administration Ondansetron HCl 4 mg 12/21/20 17:11 12/22/20 03:01 Ondansetron 4 Mg/2 Ml Inj IV 4 mg Q8H PRN Administration Nausea And Vomiting Oxycodone/Acetaminophen 1 tab 12/21/20 17:11 12/21/20 23:58 Oxycodone /Acetaminophen 5-325mg Tab PO 1 tab Q16H PRN Administration Pain, Moderate (4-6) Pantoprazole Sodium 40 mg 12/21/20 22:00 12/22/20 22:55 Pantoprazole 40 Mg Inj IV 40 mg BID LUCIAN Administration Sodium Chloride 10 ml 12/21/20 22:00 12/22/20 22:55 Sodium Chloride 0.9% 10 Ml Flush Syringe IV 10 ml BID LUCIAN Administration Sodium Chloride 10 ml 12/21/20 17:11 Sodium Chloride 0.9% 10 Ml Flush Syringe IV PRN PRN LINE FLUSH
[2020-12-23] MEDS: PANTOPRAZOLE 40 MG INJ IV SCH ×2 (10:07→22:55)
[2020-12-23 14:52] LABS: Iron 20 ug/dL (49-181); Total Iron Binding Capacity 417 mcg/dL (250-450)
[2020-12-23] MEDS: SODIUM CHLORIDE 0.9% 1000 ML 1,000 ML IV SCH (18:03)
--- NOTE | 2020-12-23 18:34 | Hem/Onc Progress Note ---
Subjective Interval history: heme consult televisit video cart not available [place] cpt [id number] dx anemia and ITP heme consult for pancytopenia, requested by Dr. 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 man with h/o AVM, chronic iron deficiency, several hospitalizations during the past 6 years for severe anemia, usually with very low plt count 20's, refractory to plt transfusions-->sometimes very high plt count 1.5M Now eval for severe anemia and low plt count 20's has already received RBC transfusions, planning plt transfusion PMH: HCV (treated?) imaging from past few years shows normal-appearing liver and spleen Soc: smoker, h/o alcohol dependence several years ago, per notes DATA REVIEWED BELOW IMPRESSION: chronic iron deficiency anemia, maybe due too chronic bleeding he could have "Qtjsr-Cffub-Cgoeb/HHT" syndrome another possibility is PNH syndrome with chronic hemolytic anemia low plt count is best explained as ITP, maybe related to bleeding tendency RECOMMEND: plt transfusion requested by hospitalist consider IVIG infusion if plt transfusion does not increase count he should get outpatient ITP treatment to try to maintain goal plt count >50 labs to include LDH, daren will try for outpt televisit hematology f/u after discharge 65yo AA man with chronic anemia, transfusion dependence, ITP s/p IVIG 03/2020 admitted to [facility] 03/2020-->RBC and steroids, IVIG, presumed AIHA but daren neg readmitted 08/2020 and 10/2020 for severe anemia-->RBC transfusions now back in [facility] for severe anemia Hgb 3.5, weakness, lightheaded s/p RBC transfusions yesterday found to have low plt counts again 30's Laboratory Last Values WBC 3.4 K/mm3 (4.5-11.0) L 12/22/20 14:55 Hgb 8.7 gm/dl (11.8-15.2) L D 12/22/20 14:55 Hct 27.6 % (35.5-45.6) L D 12/22/20 14:55 MCV 77 fl (84-94) L 12/22/20 14:55 Plt Count 35 K/mm3 (140-440) L 12/22/20 14:55 Seg Neuts % (Manual) 95.0 % (40.0-70.0) H 12/22/20 14:55 PT 14.6 Sec. (12.2-14.9) 12/21/20 12:43 INR 1.03 (0.87-1.13) 12/21/20 12:43 APTT 29.5 Sec. (24.2-36.6) 12/21/20 12:43 Sodium 141 mmol/L (137-145) 12/21/20 12:43 Creatinine 0.7 mg/dL (0.8-1.3) L 12/21/20 12:43 Lactate Dehydrogenase 175 units/L (91-180) 12/23/20 14:13 Crossmatch See Detail 12/21/20 15:30 Objective - Constitutional Vitals: Last Vital Signs Temp 98.9 F 12/23/20 15: Pulse 77 12/23/20 15:21 Resp 20 12/23/20 15:21 BP 115/57 12/23/20 15:21 Pulse Ox 100 12/23/20 15:21 - Labs Lab Results: Laboratory Results - last 24 hr 12/23/20 12/23/20 14:13 14:13 Iron 20 L TIBC 417 Ferritin 52.4 Lactate Dehydrogenase 175 Medications & Allergies - Medications Allergies/Adverse Reactions: Allergies No Known Allergies Allergy (Verified 08/27/17 07:25) Home Medications: Home Medications Medication Instructions Recorded Confirmed Last Taken Type Insulin Regular, Human [HumuLIN R] 0 unit SQ AC #1 vial 08/20/20 Unknown Rx Metoprolol [Lopressor TAB] 25 mg PO BID #60 tablet 08/20/20 Unknown Rx Active Medications: Generic Name Dose Route Start Last Admin Trade Name Freq PRN Reason Stop Dose Admin Acetaminophen 650 mg 12/21/20 17:11 12/22/20 23:53 Acetaminophen 325 Mg Tab PO 650 mg Q4H PRN Administration Pain MILD(1-3)/Fever >100.5/DURÁN Albuterol 2.5 mg 12/21/20 17:11 Albuterol 2.5 Mg/3 Ml Nebu IH Q4HRT PRN Shortness Of Breath Hydromorphone HCl 0.25 mg 12/21/20 17:11 Hydromorphone 1 Mg/1 Ml Inj IV Q23H PRN Pain, Moderate (4-6) Sodium Chloride 1,000 mls @ 42 mls/hr 12/21/20 17:15 12/23/20 18:03 Nacl 0.9% 1000 Ml IV 42 mls/hr DIRECT LUCIAN Administration Ondansetron HCl 4 mg 12/21/20 17:11 12/22/20 03:01 Ondansetron 4 Mg/2 Ml Inj IV 4 mg Q8H PRN Administration Nausea And Vomiting Oxycodone/Acetaminophen 1 tab 12/21/20 17:11 12/21/20 23:58 Oxycodone /Acetaminophen 5-325mg Tab PO 1 tab Q16H PRN Administration Pain, Moderate (4-6) Pantoprazole Sodium 40 mg 12/21/20 22:00 12/23/20 10:07 Pantoprazole 40 Mg Inj IV 40 mg BID LUCIAN Administration Sodium Chloride 10 ml 12/21/20 22:00 12/23/20 10:07 Sodium Chloride 0.9% 10 Ml Flush Syringe IV 10 ml BID LUCIAN Administration Sodium Chloride 10 ml 12/21/20 17:11 Sodium Chloride 0.9% 10 Ml Flush Syringe IV PRN PRN LINE FLUSH
--- NOTE | 2020-12-23 18:44 | Hem/Onc Consultation ---
History of Present Illness - History of Present Illness heme consult televisit video cart not available talked to [place] cpt [id number] dx anemia and ITP 65yo AA man with chronic anemia, transfusion dependence, several transfusions over 6 years ITP s/p IVIG 03/2020--had normal plt counts for a few months 03/2020: SPEP: faint abn band, hgb electrophoresis nl, EZRA neg, Daren neg h/o AVM, presumed to have chronic bleeding but he says no visible bleeding admitted to [facility] 03/2020-->RBC and steroids, IVIG, presumed AIHA but daren neg readmitted 08/2020 and 10/2020 for severe anemia-->RBC transfusions now back in [facility] for severe anemia Hgb 3.5, weakness, lightheaded s/p RBC transfusions yesterday found to have low plt counts again 30's PMH: HCV (treated?) imaging from past few years shows normal-appearing liver and spleen Soc: smoker, h/o alcohol dependence several years ago, per notes DATA REVIEWED BELOW IMPRESSION: chronic iron deficiency anemia, maybe due to chronic bleeding heme malignancy or myelofibrosis is possible I don't think he has AIHA now differential diagnosis includes: myelofibrosis, indolent lymphoma, aplastic anemia, PNH, Yzvuj-Qzqqn-Swpce/HHT syndrome low plt count is best explained as ITP, maybe causing bleeding tendency RECOMMEND: requesting bone marrow biopsy-d/w pt labs, if possible, to include PNH screen,. another SPEP, kappa./lambda, quant Ig he needs outpt heme f/u-in 03/2020 we were unable to connect for outpt f/u no more transfusions planned for now he will need to see an in-person heme/onc in the future Laboratory Last Values WBC 3.4 K/mm3 (4.5-11.0) L 12/22/20 14:55 Hgb 8.7 gm/dl (11.8-15.2) L D 12/22/20 14:55 Hct 27.6 % (35.5-45.6) L D 12/22/20 14:55 MCV 77 fl (84-94) L 12/22/20 14:55 Plt Count 35 K/mm3 (140-440) L 12/22/20 14:55 Seg Neuts % (Manual) 95.0 % (40.0-70.0) H 12/22/20 14:55 PT 14.6 Sec. (12.2-14.9) 12/21/20 12:43 INR 1.03 (0.87-1.13) 12/21/20 12:43 APTT 29.5 Sec. (24.2-36.6) 12/21/20 12:43 Sodium 141 mmol/L (137-145) 12/21/20 12:43 Creatinine 0.7 mg/dL (0.8-1.3) L 12/21/20 12:43 Lactate Dehydrogenase 175 units/L (91-180) 12/23/20 14:13 Crossmatch See Detail 12/21/20 15:30 Past History Past Medical History: anemia, diabetes, other (See HPI) Past Surgical History: Other (Endoscopy) Social history: single, smoking Family history: diabetes, hypertension Medications and Allergies Allergies Allergy/AdvReac Type Severity Reaction Status Date / Time No Known Allergies Allergy Verified 08/27/17 07:25 Home Medications Medication Instructions Recorded Confirmed Last Taken Type Insulin Regular, Human [HumuLIN R] 0 unit SQ AC #1 vial 08/20/20 Unknown Rx Metoprolol [Lopressor TAB] 25 mg PO BID #60 tablet 08/20/20 Unknown Rx Active Meds: Active Medications Acetaminophen (Acetaminophen 325 Mg Tab) 650 mg PO Q4H PRN PRN Reason: Pain MILD(1-3)/Fever >100.5/DURÁN Last Admin: 12/22/20 23:53 Dose: 650 mg Documented by: Albuterol (Albuterol 2.5 Mg/3 Ml Nebu) 2.5 mg IH Q4HRT PRN PRN Reason: Shortness Of Breath Hydromorphone HCl (Hydromorphone 1 Mg/1 Ml Inj) 0.25 mg IV Q23H PRN PRN Reason: Pain, Moderate (4-6) Sodium Chloride (Nacl 0.9% 1000 Ml) 1,000 mls @ 42 mls/hr IV DIRECT LUCIAN Last Admin: 12/23/20 18:03 Dose: 42 mls/hr Documented by: Ondansetron HCl (Ondansetron 4 Mg/2 Ml Inj) 4 mg IV Q8H PRN PRN Reason: Nausea And Vomiting Last Admin: 12/22/20 03:01 Dose: 4 mg Documented by: Oxycodone/Acetaminophen (Oxycodone /Acetaminophen 5-325mg Tab) 1 tab PO Q16H PRN PRN Reason: Pain, Moderate (4-6) Last Admin: 12/21/20 23:58 Dose: 1 tab Documented by: Pantoprazole Sodium (Pantoprazole 40 Mg Inj) 40 mg IV BID [facility] Last Admin: 12/23/20 10:07 Dose: 40 mg Documented by: Sodium Chloride (Sodium Chloride 0.9% 10 Ml Flush Syringe) 10 ml IV BID [facility] Last Admin: 12/23/20 10:07 Dose: 10 ml Documented by: Sodium Chloride (Sodium Chloride 0.9% 10 Ml Flush Syringe) 10 ml IV PRN PRN PRN Reason: LINE FLUSH Exam - Constitutional Vitals: Last Vital Signs Temp 98.9 F 12/23/20 15:21 Pulse 77 12/23/20 15:21 Resp 20 12/23/20 15:21 BP 115/57 12/23/20 15:21 Pulse Ox 100 12/23/20 15:21 Results - Labs lab Results: Laboratory Results - last 24 hr 12/23/20 12/23/20 14:13 14:13 Iron 20 L TIBC 417 Ferritin 52.4 Lactate Dehydrogenase 175
[2020-12-24 05:50] LABS: Blood Urea Nitrogen 10 mg/dL (9-20); Hemolysis Index 4
[2020-12-24 05:54] LABS: Hematocrit 26.7 % (35.5-45.6); Hemoglobin 8.3 gm/dl (11.8-15.2); Mean Corpuscular HGB Conc 31 % (32-34); Mean Corpuscular Volume 77 fl (84-94); Red Blood Count 3.49 M/mm3 (3.65-5.03)
[2020-12-24 05:59] LABS: BUN/Creatinine Ratio 17
[2020-12-24 06:06] LABS: Red Cell Distribution Width 30.5 % (13.2-15.2)
[2020-12-24] MEDS ORDERED: HYDROmorphone 1 MG/1 ML INJ IV NR (09:00)
--- NOTE | 2020-12-24 09:07 | Progress Note ---
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 03/2020-->RBC and steroids, IVIG, presumed AIHA but daren neg readmitted 08/2020 and 10/2020 for severe anemia-->RBC transfusions now back in [facility] for severe anemia Hgb 3.5, weakness, lightheaded s/p RBC transfusions on 12/22 found to have low plt counts again 30's GI bleed Symptomatic anemia Diabetes mellitus type 2. 12/22/2020. GI consultation pending. Transfuse PRBCs as needed for hemoglobin < 7. Patient is s/p 4 units PRBCs. Await follow-up CBC. Continue Protonix 40 mg IV twice daily. 12/23/2020. Patient has received a total of 4 units PRBCs. Consult for hematology. 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 Patient has previously received IVIG and steroids on an admission March of this year 12/24/2020. Hematology suspects possibility of heme malignancy, lymphoma or myelofibrosis. Patient is to have bone marrow biopsy today. Check PNH screen, SPEP, kappa/lambda and quantitative IgG. Patient will definitely need follow-up with hematology/oncology as an outpatient History Interval history: No new issues overnight Hospitalist Physical - Constitutional Vitals: Temp Pulse Resp BP Pulse Ox 98.6 F 95 H 18 139/69 99 12/24/20 05:37 12/24/20 05:37 12/24/20 05:37 12/24/20 05:37 12/24/20 05:37 General appearance: Present: no acute distress - EENT Eyes: Present: PERRL, EOM intact ENT: hearing intact, clear oral mucosa, dentition normal - Neck Neck: Present: supple, normal ROM - Respiratory Respiratory effort: normal Respiratory: bilateral: CTA - Cardiovascular Rhythm: regular Heart Sounds: Present: S1 & S2. Absent: gallop, rub - Extremities Extremities: no ischemia, No edema, Full ROM - Abdominal General gastrointestinal: soft, non-tender, non-distended, normal bowel sounds - Integumentary Integumentary: Present: clear, warm, dry - Neurologic Neurologic: CNII-XII intact, moves all extremities Results - Labs CBC & Chem 7: 12/24/20 05:08 12/24/20 05:08 Labs: Laboratory Last Values WBC 4.2 K/mm3 (4.5-11.0) L 12/24/20 05:08 RBC 3.49 M/mm3 (3.65-5.03) L 12/24/20 05:08 Hgb 8.3 gm/dl (11.8-15.2) L 12/24/20 05:08 Hct 26.7 % (35.5-45.6) L 12/24/20 05:08 MCV 77 fl (84-94) L 12/24/20 05:08 MCH 24 pg (28-32) L 12/24/20 05:08 MCHC 31 % (32-34) L 12/24/20 05:08 RDW 30.5 % (13.2-15.2) H 12/24/20 05:08 Plt Count 35 K/mm3 (140-440) L 12/22/20 14:55 Add Manual Diff Complete 12/22/20 14:55 Total Counted 100 12/22/20 14:55 Seg Neuts % (Manual) 95.0 % (40.0-70.0) H 12/22/20 14:55 Band Neutrophils % 1.0 % 12/22/20 14:55 Lymphocytes % (Manual) 2.0 % (13.4-35.0) L 12/22/20 14:55 Monocytes % (Manual) 1.0 % (0.0-7.3) 12/22/20 14:55 Metamyelocytes % 1.0 % 12/22/20 14:55 Nucleated RBC % Not Reportable 12/22/20 14:55 Seg Neutrophils # Man 3.2 K/mm3 (1.8-7.7) 12/22/20 14:55 Band Neutrophils # 0.0 K/mm3 12/22/20 14:55 Lymphocytes # (Manual) 0.1 K/mm3 (1.2-5.4) L 12/22/20 14:55 Abs React Lymphs (Man) 0.0 K/mm3 12/22/20 14:55 Monocytes # (Manual) 0.0 K/mm3 (0.0-0.8) 12/22/20 14:55 Eosinophils # (Manual) 0.0 K/mm3 (0.0-0.4) 12/22/20 14:55 Basophils # (Manual) 0.0 K/mm3 (0.0-0.1) 12/22/20 14:55 Metamyelocytes # 0.0 K/mm3 12/22/20 14:55 Myelocytes # 0.0 K/mm3 12/22/20 14:55 Promyelocytes # 0.0 K/mm3 12/22/20 14:55 Blast Cells # 0.0 K/mm3 12/22/20 14:55 WBC Morphology Not Reportable 12/22/20 14:55 Hypersegmented Neuts Not Reportable 12/22/20 14:55 Hyposegmented Neuts Not Reportable 12/22/20 14:55 Hypogranular Neuts Not Reportable 12/22/20 14:55 Smudge Cells Not Reportable 12/22/20 14:55 Toxic Granulation Not Reportable 12/22/20 14:55 Toxic Vacuolation Not Reportable 12/22/20 14:55 Dohle Bodies Not Reportable 12/22/20 14:55 Pelger-Huet Anomaly Not Reportable 12/22/20 14:55 Katia Rods Not Reportable 12/22/20 14:55 Platelet Estimate Consistent w auto 12/22/20 14:55 Clumped Platelets Not Reportable 12/22/20 14:55 Plt Clumps, EDTA Not Reportable 12/22/20 14:55 Large Platelets Rare 12/22/20 14:55 Giant Platelets Not Reportable 12/22/20 14:55 Platelet Satelliting Not Reportable 12/22/20 14:55 Plt Morphology Comment Not Reportable 12/22/20 14:55 RBC Morphology Not Reportable 12/22/20 14:55 Dimorphic RBCs Not Reportable 12/22/20 14:55 Polychromasia Not Reportable 12/22/20 14:55 Hypochromasia 1+ 12/22/20 14:55 Poikilocytosis 1+ 12/22/20 14:55 Anisocytosis 3+ 12/22/20 14:55 Microcytosis Not Reportable 12/22/20 14:55 Macrocytosis Not Reportable 12/22/20 14:55 Spherocytes Not Reportable 12/22/20 14:55 Pappenheimer Bodies Not Reportable 12/22/20 14:55 Sickle Cells Not Reportable 12/22/20 14:55 Target Cells Not Reportable 12/22/20 14:55 Tear Drop Cells Few 12/22/20 14:55 Ovalocytes Few 12/22/20 14:55 Helmet Cells Not Reportable 12/22/20 14:55 Suarez-[place] Bodies Not Reportable 12/22/20 14:55 [place] Rings Not Reportable 12/22/20 14:55 Luke Cells Not Reportable 12/22/20 14:55 Bite Cells Not Reportable 12/22/20 14:55 Crenated Cell Not Reportable 12/22/20 14:55 Elliptocytes Few 12/22/20 14:55 Acanthocytes (Spur) Not Reportable 12/22/20 14:55 Rouleaux Not Reportable 12/22/20 14:55 Hemoglobin C Crystals Not Reportable 12/22/20 14:55 Schistocytes Not Reportable 12/22/20 14:55 Malaria parasites Not Reportable 12/22/20 14:55 Jl Bodies Not Reportable 12/22/20 14:55 Hem Pathologist Commnt No 12/22/20 14:55 PT 14.6 Sec. (12.2-14.9) 12/21/20 12:43 INR 1.03 (0.87-1.13) 12/21/20 12:43 APTT 29.5 Sec. (24.2-36.6) 12/21/20 12:43 Sodium 137 mmol/L (137-145) 12/24/20 05:08 Potassium 3.7 mmol/L (3.6-5.0) 12/24/20 05:08 Chloride 103.9 mmol/L (98-107) 12/24/20 05:08 Carbon Dioxide 24 mmol/L (22-30) 12/24/20 05:08 Anion Gap 13 mmol/L 12/24/20 05:08 BUN 10 mg/dL (9-20) 12/24/20 05:08 Creatinine 0.6 mg/dL (0.8-1.3) L 12/24/20 05:08 Estimated GFR > 60 ml/min 12/24/20 05:08 BUN/Creatinine Ratio 17 % 12/24/20 05:08 Glucose 142 mg/dL (75-100) H 12/24/20 05:08 Calcium 8.0 mg/dL (8.4-10.2) L 12/24/20 05:08 Iron 20 ug/dL (49-181) L 12/23/20 14:13 TIBC 417 mcg/dL (250-450) 12/23/20 14:13 Ferritin 52.4 ng/mL (30.0-300.0) 12/23/20 14:13 Lactate Dehydrogenase 175 units/L (91-180) 12/23/20 14:13 Blood Type A POSITIVE 12/21/20 15:30 Antibody Screen Negative 12/21/20 15:30 Crossmatch See Detail 12/21/20 15:30 Parker/IV: Voiding Method Urinal Active Medications - Current Medications Current Medications: Generic Name Dose Route Start Last Admin Trade Name Freq PRN Reason Stop Dose Admin Acetaminophen 650 mg 12/21/20 17:11 12/22/20 23:53 Acetaminophen 325 Mg Tab PO 650 mg Q4H PRN Administration Pain MILD(1-3)/Fever >100.5/DURÁN Albuterol 2.5 mg 12/21/20 17:11 Albuterol 2.5 Mg/3 Ml Nebu IH Q4HRT PRN Shortness Of Breath Hydromorphone HCl 0.25 mg 12/21/20 17:11 Hydromorphone 1 Mg/1 Ml Inj IV Q23H PRN Pain, Moderate (4-6) Hydromorphone HCl 1 mg 12/24/20 09:00 Hydromorphone 1 Mg/1 Ml Inj IV 12/24/20 10:30 ONCE@0900 NR Sodium Chloride 1,000 mls @ 42 mls/hr 12/21/20 17:15 12/23/20 18:03 Nacl 0.9% 1000 Ml IV 42 mls/hr DIRECT LUCIAN Administration Ondansetron HCl 4 mg 12/21/20 17:11 12/22/20 03:01 Ondansetron 4 Mg/2 Ml Inj IV 4 mg Q8H PRN Administration Nausea And Vomiting Ondansetron HCl 4 mg 12/24/20 08:42 Ondansetron 4 Mg/2 Ml Inj IV 12/24/20 10:30 ONCE@0900 NR Oxycodone/Acetaminophen 1 tab 12/21/20 17:11 12/21/20 23:58 Oxycodone /Acetaminophen 5-325mg Tab PO 1 tab Q16H PRN Administration Pain, Moderate (4-6) Pantoprazole Sodium 40 mg 12/21/20 22:00 12/23/20 22:55 Pantoprazole 40 Mg Inj IV 40 mg BID LUCIAN Administration Sodium Chloride 10 ml 12/21/20 22:00 12/23/20 22:55 Sodium Chloride 0.9% 10 Ml Flush Syringe IV 10 ml BID LUCIAN Administration Sodium Chloride 10 ml 12/21/20 17:11 Sodium Chloride 0.9% 10 Ml Flush Syringe IV PRN PRN LINE FLUSH
[2020-12-24 09:35] LABS: Total Cells Counted 100
[2020-12-24 09:36] LABS: Anisocytosis 3+; Band Neutrophils # (Manual) 0.3 K/mm3; Hypochromasia 1+; Myelocytes # (Manual) 0.3 K/mm3
[2020-12-24 09:37] LABS: Poikilocytosis 2+
[2020-12-24 09:38] LABS: Ovalocytes 1+; Platelet Estimate Consistent w Auto; Tear Drop Cells 1+
[2020-12-24] MEDS: ONDANSETRON 4 MG/2 ML INJ IV NR (09:40)
[2020-12-24 09:45] LABS: Platelet Count 42 K/mm3 (140-440)
--- NOTE | 2020-12-24 10:29 | Cat Scan Report ---
CT-GUIDED BONE MARROW ASPIRATION AND BIOPSY INDICATION : Severe anemia, pancytopenia PROCEDURE: The risks (including but not limited to bleeding and infection) and benefits were explain ed to the patient and informed consent was obtained. All CT examinations performed at this facility utilize dose modulation, iterative reconstruction or weight-based dosing, when appropriate, to reduce radiation dose to as low as reasonably achievable. A time out procedure was performed. The procedu re site was prepped and draped in the usual sterile fashion and lidocaine was used for local anesthes ia. Under CT guidance, the right posterior iliac wing was selected for biopsy. An 11 gauge needle was ad vanced to the posterior margin of the iliac wing, cortex breached, and 4.5 mL bone marrow aspirate ob tained. The needle was then advanced and a bone marrow biopsy was obtained measuring approximately 2 cm. Samples were given directly to the flight technician who was present during the exam. The patient tolerated the procedure well with no complications. IMPRESSION: Technically successful bone marrow aspirate and biopsy. Signer Name: Rich Espinosa Jr, MD Signed: 12/24/2020 10:25 AM Workstation Name: [id number]
[2020-12-24] MEDS: PANTOPRAZOLE 40 MG INJ IV SCH ×2 (10:57→21:47)
[2020-12-25 06:18] LABS: Hematocrit 26.6 % (35.5-45.6); Hemoglobin 8.4 gm/dl (11.8-15.2); Mean Corpuscular HGB Conc 32 % (32-34); Mean Corpuscular Volume 77 fl (84-94); Red Blood Count 3.45 M/mm3 (3.65-5.03)
[2020-12-25 06:21] LABS: Red Cell Distribution Width 30.3 % (13.2-15.2)
[2020-12-25 06:28] LABS: Blood Urea Nitrogen 7 mg/dL (9-20); Calcium 8.3 mg/dL (8.4-10.2); Hemolysis Index 0
[2020-12-25 06:34] LABS: BUN/Creatinine Ratio 12
[2020-12-25 07:52] LABS: Total Cells Counted 100
[2020-12-25 07:53] LABS: Anisocytosis 3+; Hypochromasia 1+; Ovalocytes 1+; Poikilocytosis 1+
[2020-12-25 07:54] LABS: Platelet Count 61 K/mm3 (140-440); Platelet Estimate Consistent w Auto; Tear Drop Cells 1+
--- NOTE | 2020-12-25 08:40 | Hem/Onc Progress Note ---
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--had normal plt counts for a few months 03/2020: SPEP: faint abn band, hgb electrophoresis nl, EZRA neg, Daren neg h/o AVM, presumed to have chronic bleeding but he says no visible bleeding admitted to [facility] 03/2020-->RBC and steroids, IVIG, presumed AIHA but daren neg readmitted 08/2020 and 10/2020 for severe anemia-->RBC transfusions now back in [facility] for severe anemia Hgb 3.5, weakness, lightheaded s/p RBC transfusions yesterday found to have low plt counts again 30's PMH: HCV (treated?) imaging from past few years shows normal-appearing liver and spleen Soc: smoker, h/o alcohol dependence several years ago, per notes DATA REVIEWED BELOW IMPRESSION: chronic iron deficiency anemia, maybe due to chronic bleeding heme malignancy or myelofibrosis is possible I don't think he has AIHA now differential diagnosis includes: myelofibrosis, indolent lymphoma, aplastic anemia, PNH, Yzcff-Njnzy-Ymcag/HHT syndrome low plt count is best explained as ITP, maybe causing bleeding tendency RECOMMEND: Awaiting bone marrow biopsy results Awaiting PNH screen, another SPEP, kappa/lambda, quant Ig he needs outpt heme f/u-in 03/2020 we were unable to connect for outpt f/u no more transfusions planned for now he will need to see an in-person heme/onc in the future Laboratory Last Values WBC 3.9 K/mm3 (4.5-11.0) L 12/25/20 05:28 RBC 3.45 M/mm3 (3.65-5.03) L 12/25/20 05:28 Hgb 8.4 gm/dl (11.8-15.2) L 12/25/20 05:28 Hct 26.6 % (35.5-45.6) L 12/25/20 05:28 MCV 77 fl (84-94) L 12/25/20 05:28 MCH 24 pg (28-32) L 12/25/20 05:28 MCHC 32 % (32-34) 12/25/20 05:28 RDW 30.3 % (13.2-15.2) H 12/25/20 05:28 Plt Count 61 K/mm3 (140-440) L 12/25/20 05:28 Add Manual Diff Complete 12/25/20 05:28 Total Counted 100 12/25/20 05:28 Seg Neuts % (Manual) 69.0 % (40.0-70.0) 12/25/20 05:28 Band Neutrophils % 1.0 % 12/25/20 05:28 Lymphocytes % (Manual) 18.0 % (13.4-35.0) 12/25/20 05:28 Reactive Lymphs % (Man) 4.0 % 12/24/20 05:08 Monocytes % (Manual) 8.0 % (0.0-7.3) H 12/25/20 05:28 Eosinophils % (Manual) 3.0 % (0.0-4.3) 12/25/20 05:28 Metamyelocytes % 1.0 % 12/25/20 05:28 Myelocytes % 8.0 % 12/24/20 05:08 Promyelocytes % 1.0 % 12/24/20 05:08 Nucleated RBC % Not Reportable 12/25/20 05:28 Seg Neutrophils # Man 2.7 K/mm3 (1.8-7.7) 12/25/20 05:28 Band Neutrophils # 0.0 K/mm3 12/25/20 05:28 Lymphocytes # (Manual) 0.7 K/mm3 (1.2-5.4) L 12/25/20 05:28 Abs React Lymphs (Man) 0.0 K/mm3 12/25/20 05:28 Monocytes # (Manual) 0.3 K/mm3 (0.0-0.8) 12/25/20 05:28 Eosinophils # (Manual) 0.1 K/mm3 (0.0-0.4) 12/25/20 05:28 Basophils # (Manual) 0.0 K/mm3 (0.0-0.1) 12/25/20 05:28 Metamyelocytes # 0.0 K/mm3 12/25/20 05:28 Myelocytes # 0.0 K/mm3 12/25/20 05:28 Promyelocytes # 0.0 K/mm3 12/25/20 05:28 Blast Cells # 0.0 K/mm3 12/25/20 05:28 WBC Morphology Not Reportable 12/25/20 05:28 Hypersegmented Neuts Not Reportable 12/25/20 05:28 Hyposegmented Neuts Not Reportable 12/25/20 05:28 Hypogranular Neuts Not Reportable 12/25/20 05:28 Smudge Cells Not Reportable 12/25/20 05:28 Toxic Granulation Not Reportable 12/25/20 05:28 Toxic Vacuolation Not Reportable 12/25/20 05:28 Dohle Bodies Not Reportable 12/25/20 05:28 Pelger-Huet Anomaly Not Reportable 12/25/20 05:28 Katia Rods Not Reportable 12/25/20 05:28 Platelet Estimate Consistent w auto 12/25/20 05:28 Clumped Platelets Not Reportable 12/25/20 05:28 Plt Clumps, EDTA Not Reportable 12/25/20 05:28 Large Platelets Not Reportable 12/25/20 05:28 Giant Platelets Not Reportable 12/25/20 05:28 Platelet Satelliting Not Reportable 12/25/20 05:28 Plt Morphology Comment Not Reportable 12/25/20 05:28 RBC Morphology Not Reportable 12/25/20 05:28 Dimorphic RBCs Not Reportable 12/25/20 05:28 Polychromasia Not Reportable 12/25/20 05:28 Hypochromasia 1+ 12/25/20 05:28 Poikilocytosis 1+ 12/25/20 05:28 Anisocytosis 3+ 12/25/20 05:28 Microcytosis Not Reportable 12/25/20 05:28 Macrocytosis Not Reportable 12/25/20 05:28 Spherocytes Not Reportable 12/25/20 05:28 Pappenheimer Bodies Not Reportable 12/25/20 05:28 Sickle Cells Not Reportable 12/25/20 05:28 Target Cells Not Reportable 12/25/20 05:28 Tear Drop Cells 1+ 12/25/20 05:28 Ovalocytes 1+ 12/25/20 05:28 Helmet Cells Not Reportable 12/25/20 05:28 Suarez-[place] Bodies Not Reportable 12/25/20 05:28 [place] Rings Not Reportable 12/25/20 05:28 [place] Cells Not Reportable 12/25/20 05:28 Bite Cells Not Reportable 12/25/20 05:28 Crenated Cell Not Reportable 12/25/20 05:28 Elliptocytes Few 12/25/20 05:28 Acanthocytes (Spur) Not Reportable 12/25/20 05:28 Rouleaux Not Reportable 12/25/20 05:28 Hemoglobin C Crystals Not Reportable 12/25/20 05:28 Schistocytes Not Reportable 12/25/20 05:28 Malaria parasites Not Reportable 12/25/20 05:28 Jl Bodies Not Reportable 12/25/20 05:28 Hem Pathologist Commnt No 12/25/20 05:28 PT 14.6 Sec. (12.2-14.9) 12/21/20 12:43 INR 1.03 (0.87-1.13) 12/21/20 12:43 APTT 29.5 Sec. (24.2-36.6) 12/21/20 12:43 Sodium 135 mmol/L (137-145) L 12/25/20 05:28 Potassium 3.7 mmol/L (3.6-5.0) 12/25/20 05:28 Chloride 101.8 mmol/L (98-107) 12/25/20 05:28 Carbon Dioxide 25 mmol/L (22-30) 12/25/20 05:28 Anion Gap 12 mmol/L 12/25/20 05:28 BUN 7 mg/dL (9-20) L 12/25/20 05:28 Creatinine 0.6 mg/dL (0.8-1.3) L 12/25/20 05:28 Estimated GFR > 60 ml/min 12/25/20 05:28 BUN/Creatinine Ratio 12 % 12/25/20 05:28 Glucose 136 mg/dL (75-100) H 12/25/20 05:28 Calcium 8.3 mg/dL (8.4-10.2) L 12/25/20 05:28 Iron 20 ug/dL (49-181) L 12/23/20 14:13 TIBC 417 mcg/dL (250-450) 12/23/20 14:13 Ferritin 52.4 ng/mL (30.0-300.0) 12/23/20 14:13 Lactate Dehydrogenase 175 units/L (91-180) 12/23/20 14:13 Blood Type A POSITIVE 12/21/20 15:30 Antibody Screen Negative 12/21/20 15:30 Crossmatch See Detail 12/21/20 15:30 Objective - Constitutional Vitals: Last Vital Signs Temp 98.9 F 12/24/20 23:05 Pulse 87 12/25/20 02:00 Resp 20 12/24/20 23:05 BP 130/69 12/24/20 23:05 Pulse Ox 100 12/24/20 23:05 - Labs Lab Results: Laboratory Results - last 24 hr 12/24/20 12/25/20 12/25/20 05:08 05:28 05:28 WBC 3.9 L RBC 3.45 L Hgb 8.4 L Hct 26.6 L MCV 77 L MCH 24 L MCHC 32 RDW 30.3 H Plt Count 42 L 61 L Add Manual Diff Complete Complete Total Counted 100 100 Seg Neuts % (Manual) 53.0 69.0 Band Neutrophils % 8.0 1.0 Lymphocytes % (Manual) 24.0 18.0 Reactive Lymphs % (Man) 4.0 Monocytes % (Manual) 2.0 8.0 H Eosinophils % (Manual) 3.0 Metamyelocytes % 1.0 Myelocytes % 8.0 Promyelocytes % 1.0 Nucleated RBC % Not Reportable Not Reportable Seg Neutrophils # Man 2.2 2.7 Band Neutrophils # 0.3 0.0 Lymphocytes # (Manual) 1.0 L 0.7 L Abs React Lymphs (Man) 0.2 0.0 Monocytes # (Manual) 0.1 0.3 Eosinophils # (Manual) 0.0 0.1 Basophils # (Manual) 0.0 0.0 Metamyelocytes # 0.0 0.0 Myelocytes # 0.3 0.0 Promyelocytes # 0.0 0.0 Blast Cells # 0.0 0.0 WBC Morphology Not Reportable Not Reportable Hypersegmented Neuts Not Reportable Not Reportable Hyposegmented Neuts Not Reportable Not Reportable Hypogranular Neuts Not Reportable Not Reportable Smudge Cells Not Reportable Not Reportable Toxic Granulation Not Reportable Not Reportable Toxic Vacuolation Not Reportable Not Reportable Dohle Bodies Not Reportable Not Reportable Pelger-Huet Anomaly Not Reportable Not Reportable Katia Rods Not Reportable Not Reportable Platelet Estimate Consistent w auto Consistent w auto Clumped Platelets Not Reportable Not Reportable Plt Clumps, EDTA Not Reportable Not Reportable Large Platelets Not Reportable Not Reportable Giant Platelets Not Reportable Not Reportable Platelet Satelliting Not Reportable Not Reportable Plt Morphology Comment Not Reportable Not Reportable RBC Morphology Not Reportable Not Reportable Dimorphic RBCs Not Reportable Not Reportable Polychromasia 2+ Not Reportable Hypochromasia 1+ 1+ Poikilocytosis 2+ 1+ Anisocytosis 3+ 3+ Microcytosis Not Reportable Not Reportable Macrocytosis Not Reportable Not Reportable Spherocytes Not Reportable Not Reportable Pappenheimer Bodies Not Reportable Not Reportable Sickle Cells Not Reportable Not Reportable Target Cells Not Reportable Not Reportable Tear Drop Cells 1+ 1+ Ovalocytes 1+ 1+ Helmet Cells Not Reportable Not Reportable Su[place] Bodies Not Reportable Not Reportable [place] Rings Not Reportable Not Reportable Luke Cells Not Reportable Not Reportable Bite Cells Not Reportable Not Reportable Crenated Cell Not Reportable Not Reportable Elliptocytes 1+ Few Acanthocytes (Spur) Not Reportable Not Reportable Rouleaux Not Reportable Not Reportable Hemoglobin C Crystals Not Reportable Not Reportable Schistocytes Not Reportable Not Reportable Malaria parasites Not Reportable Not Reportable Jl Bodies Not Reportable Not Reportable Hem Pathologist Commnt No No Sodium 135 L Potassium 3.7 Chloride 101.8 Carbon Dioxide 25 Anion Gap 12 BUN 7 L Creatinine 0.6 L Estimated GFR > 60 BUN/Creatinine Ratio 12 Glucose 136 H Calcium 8.3 L Medications & Allergies - Medications Allergies/Adverse Reactions: Allergies No Known Allergies Allergy (Verified 08/27/17 07:25) Home Medications: Home Medications Medication Instructions Recorded Confirmed Last Taken Type Insulin Regular, Human [HumuLIN R] 0 unit SQ AC #1 vial 08/20/20 12/24/20 Unknown Rx Metoprolol [Lopressor TAB] 25 mg PO BID #60 tablet 08/20/20 12/24/20 Unknown Rx Active Medications: Generic Name Dose Route Start Last Admin Trade Name Freq PRN Reason Stop Dose Admin Acetaminophen 650 mg 12/21/20 17:11 12/22/20 23:53 Acetaminophen 325 Mg Tab PO 650 mg Q4H PRN Administration Pain MILD(1-3)/Fever >100.5/DURÁN Albuterol 2.5 mg 12/21/20 17:11 Albuterol 2.5 Mg/3 Ml Nebu IH Q4HRT PRN Shortness Of Breath Hydromorphone HCl 0.25 mg 12/21/20 17:11 Hydromorphone 1 Mg/1 Ml Inj IV Q23H PRN Pain, Moderate (4-6) Sodium Chloride 1,000 mls @ 42 mls/hr 12/21/20 17:15 12/23/20 18:03 Nacl 0.9% 1000 Ml IV 42 mls/hr DIRECT LUCIAN Administration Ondansetron HCl 4 mg 12/21/20 17:11 12/22/20 03:01 Ondansetron 4 Mg/2 Ml Inj IV 4 mg Q8H PRN Administration Nausea And Vomiting Oxycodone/Acetaminophen 1 tab 12/21/20 17:11 12/21/20 23:58 Oxycodone /Acetaminophen 5-325mg Tab PO 1 tab Q16H PRN Administration Pain, Moderate (4-6) Pantoprazole Sodium 40 mg 12/21/20 22:00 12/24/20 21:47 Pantoprazole 40 Mg Inj IV 40 mg BID LUCIAN Administration Sodium Chloride 10 ml 12/21/20 22:00 12/24/20 21:47 Sodium Chloride 0.9% 10 Ml Flush Syringe IV 10 ml BID LUCIAN Administration Sodium Chloride 10 ml 12/21/20 17:11 Sodium Chloride 0.9% 10 Ml Flush Syringe IV PRN PRN LINE FLUSH
[2020-12-25] MEDS: PANTOPRAZOLE 40 MG INJ IV SCH ×2 (11:16→21:31)
[2020-12-25] MEDS: oxyCODONE /ACETAMINOPHEN 5-325MG TAB PO PRN (14:14)
--- NOTE | 2020-12-25 19:06 | Progress Note ---
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 12/22/2020. GI consultation pending. Transfuse PRBCs as needed for hemoglobin < 7. Patient is s/p 4 units PRBCs. Await follow-up CBC. Continue Protonix 40 mg IV twice daily. 12/23/2020. Patient has received a total of 4 units PRBCs. Consult for hematology. 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 Patient has previously received IVIG and steroids on an admission March of this year 12/24/2020. Hematology suspects possibility of heme malignancy, lymphoma or myelofibrosis. Patient is to have bone marrow biopsy today. Check [facility] screen, SPEP, kappa/lambda and quantitative IgG. Patient will definitely need follow-up with hematology/oncology as an outpatient Hospitalist Physical - Constitutional Vitals: Temp Pulse Resp BP Pulse Ox 98.9 F 87 20 130/69 100 12/24/20 23:05 12/25/20 02:00 12/24/20 23:05 12/24/20 23:05 12/24/20 23:05 General appearance: Present: no acute distress Results - Labs CBC & Chem 7: 12/25/20 05:28 12/25/20 05:28 Labs: Laboratory Last Values WBC 3.9 K/mm3 (4.5-11.0) L 12/25/20 05:28 RBC 3.45 M/mm3 (3.65-5.03) L 12/25/20 05:28 Hgb 8.4 gm/dl (11.8-15.2) L 12/25/20 05:28 Hct 26.6 % (35.5-45.6) L 12/25/20 05:28 MCV 77 fl (84-94) L 12/25/20 05:28 MCH 24 pg (28-32) L 12/25/20 05:28 MCHC 32 % (32-34) 12/25/20 05:28 RDW 30.3 % (13.2-15.2) H 12/25/20 05:28 Plt Count 61 K/mm3 (140-440) L 12/25/20 05:28 Add Manual Diff Complete 12/25/20 05:28 Total Counted 100 12/25/20 05:28 Seg Neuts % (Manual) 69.0 % (40.0-70.0) 12/25/20 05:28 Band Neutrophils % 1.0 % 12/25/20 05:28 Lymphocytes % (Manual) 18.0 % (13.4-35.0) 12/25/20 05:28 Reactive Lymphs % (Man) 4.0 % 12/24/20 05:08 Monocytes % (Manual) 8.0 % (0.0-7.3) H 12/25/20 05:28 Eosinophils % (Manual) 3.0 % (0.0-4.3) 12/25/20 05:28 Metamyelocytes % 1.0 % 12/25/20 05:28 Myelocytes % 8.0 % 12/24/20 05:08 Promyelocytes % 1.0 % 12/24/20 05:08 Nucleated RBC % Not Reportable 12/25/20 05:28 Seg Neutrophils # Man 2.7 K/mm3 (1.8-7.7) 12/25/20 05:28 Band Neutrophils # 0.0 K/mm3 12/25/20 05:28 Lymphocytes # (Manual) 0.7 K/mm3 (1.2-5.4) L 12/25/20 05:28 Abs React Lymphs (Man) 0.0 K/mm3 12/25/20 05:28 Monocytes # (Manual) 0.3 K/mm3 (0.0-0.8) 12/25/20 05:28 Eosinophils # (Manual) 0.1 K/mm3 (0.0-0.4) 12/25/20 05:28 Basophils # (Manual) 0.0 K/mm3 (0.0-0.1) 12/25/20 05:28 Metamyelocytes # 0.0 K/mm3 12/25/20 05:28 Myelocytes # 0.0 K/mm3 12/25/20 05:28 Promyelocytes # 0.0 K/mm3 12/25/20 05:28 Blast Cells # 0.0 K/mm3 12/25/20 05:28 WBC Morphology Not Reportable 12/25/20 05:28 Hypersegmented Neuts Not Reportable 12/25/20 05:28 Hyposegmented Neuts Not Reportable 12/25/20 05:28 Hypogranular Neuts Not Reportable 12/25/20 05:28 Smudge Cells Not Reportable 12/25/20 05:28 Toxic Granulation Not Reportable 12/25/20 05:28 Toxic Vacuolation Not Reportable 12/25/20 05:28 Dohle Bodies Not Reportable 12/25/20 05:28 Pelger-Huet Anomaly Not Reportable 12/25/20 05:28 Katia Rods Not Reportable 12/25/20 05:28 Platelet Estimate Consistent w auto 12/25/20 05:28 Clumped Platelets Not Reportable 12/25/20 05:28 Plt Clumps, EDTA Not Reportable 12/25/20 05:28 Large Platelets Not Reportable 12/25/20 05:28 Giant Platelets Not Reportable 12/25/20 05:28 Platelet Satelliting Not Reportable 12/25/20 05:28 Plt Morphology Comment Not Reportable 12/25/20 05:28 RBC Morphology Not Reportable 12/25/20 05:28 Dimorphic RBCs Not Reportable 12/25/20 05:28 Polychromasia Not Reportable 12/25/20 05:28 Hypochromasia 1+ 12/25/20 05:28 Poikilocytosis 1+ 12/25/20 05:28 Anisocytosis 3+ 12/25/20 05:28 Microcytosis Not Reportable 12/25/20 05:28 Macrocytosis Not Reportable 12/25/20 05:28 Spherocytes Not Reportable 12/25/20 05:28 Pappenheimer Bodies Not Reportable 12/25/20 05:28 Sickle Cells Not Reportable 12/25/20 05:28 Target Cells Not Reportable 12/25/20 05:28 Tear Drop Cells 1+ 12/25/20 05:28 Ovalocytes 1+ 12/25/20 05:28 Helmet Cells Not Reportable 12/25/20 05:28 Suarez-Muir Bodies Not Reportable 12/25/20 05:28 [place] Rings Not Reportable 12/25/20 05:28 Luke Cells Not Reportable 12/25/20 05:28 Bite Cells Not Reportable 12/25/20 05:28 Crenated Cell Not Reportable 12/25/20 05:28 Elliptocytes Few 12/25/20 05:28 Acanthocytes (Spur) Not Reportable 12/25/20 05:28 Rouleaux Not Reportable 12/25/20 05:28 Hemoglobin C Crystals Not Reportable 12/25/20 05:28 Schistocytes Not Reportable 12/25/20 05:28 Malaria parasites Not Reportable 12/25/20 05:28 Jl Bodies Not Reportable 12/25/20 05:28 Hem Pathologist Commnt No 12/25/20 05:28 PT 14.6 Sec. (12.2-14.9) 12/21/20 12:43 INR 1.03 (0.87-1.13) 12/21/20 12:43 APTT 29.5 Sec. (24.2-36.6) 12/21/20 12:43 Sodium 135 mmol/L (137-145) L 12/25/20 05:28 Potassium 3.7 mmol/L (3.6-5.0) 12/25/20 05:28 Chloride 101.8 mmol/L (98-107) 12/25/20 05:28 Carbon Dioxide 25 mmol/L (22-30) 12/25/20 05:28 Anion Gap 12 mmol/L 12/25/20 05:28 BUN 7 mg/dL (9-20) L 12/25/20 05:28 Creatinine 0.6 mg/dL (0.8-1.3) L 12/25/20 05:28 Estimated GFR > 60 ml/min 12/25/20 05:28 BUN/Creatinine Ratio 12 % 12/25/20 05:28 Glucose 136 mg/dL (75-100) H 12/25/20 05:28 Calcium 8.3 mg/dL (8.4-10.2) L 12/25/20 05:28 Iron 20 ug/dL (49-181) L 12/23/20 14:13 TIBC 417 mcg/dL (250-450) 12/23/20 14:13 Ferritin 52.4 ng/mL (30.0-300.0) 12/23/20 14:13 Lactate Dehydrogenase 175 units/L (91-180) 12/23/20 14:13 Blood Type A POSITIVE 12/21/20 15:30 Antibody Screen Negative 12/21/20 15:30 Crossmatch See Detail 12/21/20 15:30 Parker/IV: Voiding Method Urinal Active Medications - Current Medications Current Medications: Generic Name Dose Route Start Last Admin Trade Name Freq PRN Reason Stop Dose Admin Acetaminophen 650 mg 12/21/20 17:11 12/22/20 23:53 Acetaminophen 325 Mg Tab PO 650 mg Q4H PRN Administration Pain MILD(1-3)/Fever >100.5/DURÁN Albuterol 2.5 mg 12/21/20 17:11 Albuterol 2.5 Mg/3 Ml Nebu IH Q4HRT PRN Shortness Of Breath Hydromorphone HCl 0.25 mg 12/21/20 17:11 Hydromorphone 1 Mg/1 Ml Inj IV Q23H PRN Pain, Moderate (4-6) Sodium Chloride 1,000 mls @ 42 mls/hr 12/21/20 17:15 12/23/20 18:03 Nacl 0.9% 1000 Ml IV 42 mls/hr DIRECT LUCIAN Administration Ondansetron HCl 4 mg 12/21/20 17:11 12/22/20 03:01 Ondansetron 4 Mg/2 Ml Inj IV 4 mg Q8H PRN Administration Nausea And Vomiting Oxycodone/Acetaminophen 1 tab 12/21/20 17:11 12/25/20 14:14 Oxycodone /Acetaminophen 5-325mg Tab PO 1 tab Q16H PRN Administration Pain, Moderate (4-6) Pantoprazole Sodium 40 mg 12/21/20 22:00 12/25/20 11:16 Pantoprazole 40 Mg Inj IV 40 mg BID LUCIAN Administration Sodium Chloride 10 ml 12/21/20 22:00 12/25/20 14:17 Sodium Chloride 0.9% 10 Ml Flush Syringe IV 10 ml BID LUCIAN Administration Sodium Chloride 10 ml 12/21/20 17:11 Sodium Chloride 0.9% 10 Ml Flush Syringe IV PRN PRN LINE FLUSH
[2020-12-25] MEDS: ONDANSETRON 4 MG/2 ML INJ IV NR (20:02)
[2020-12-26] MEDS: oxyCODONE /ACETAMINOPHEN 5-325MG TAB PO PRN (00:20)
[2020-12-26] MEDS: PANTOPRAZOLE 40 MG INJ IV SCH ×2 (08:44→10:00)
[2020-12-26] MEDS: PANTOPRAZOLE 40 MG TAB PO SCH (18:04)
--- NOTE | 2020-12-26 19:31 | Progress Note ---
Hospitalist Physical - Constitutional Vitals: Temp Pulse Resp BP Pulse Ox 98.0 F 72 18 125/66 99 12/26/20 15:22 12/26/20 15:22 12/26/20 15:22 12/26/20 15:22 12/26/20 15:22 General appearance: Present: no acute distress Results - Labs CBC & Chem 7: 12/25/20 05:28 12/25/20 05:28 Labs: Laboratory Last Values WBC 3.9 K/mm3 (4.5-11.0) L 12/25/20 05:28 RBC 3.45 M/mm3 (3.65-5.03) L 12/25/20 05:28 Hgb 8.4 gm/dl (11.8-15.2) L 12/25/20 05:28 Hct 26.6 % (35.5-45.6) L 12/25/20 05:28 MCV 77 fl (84-94) L 12/25/20 05:28 MCH 24 pg (28-32) L 12/25/20 05:28 MCHC 32 % (32-34) 12/25/20 05:28 RDW 30.3 % (13.2-15.2) H 12/25/20 05:28 Plt Count 61 K/mm3 (140-440) L 12/25/20 05:28 Add Manual Diff Complete 12/25/20 05:28 Total Counted 100 12/25/20 05:28 Seg Neuts % (Manual) 69.0 % (40.0-70.0) 12/25/20 05:28 Band Neutrophils % 1.0 % 12/25/20 05:28 Lymphocytes % (Manual) 18.0 % (13.4-35.0) 12/25/20 05:28 Reactive Lymphs % (Man) 4.0 % 12/24/20 05:08 Monocytes % (Manual) 8.0 % (0.0-7.3) H 12/25/20 05:28 Eosinophils % (Manual) 3.0 % (0.0-4.3) 12/25/20 05:28 Metamyelocytes % 1.0 % 12/25/20 05:28 Myelocytes % 8.0 % 12/24/20 05:08 Promyelocytes % 1.0 % 12/24/20 05:08 Nucleated RBC % Not Reportable 12/25/20 05:28 Seg Neutrophils # Man 2.7 K/mm3 (1.8-7.7) 12/25/20 05:28 Band Neutrophils # 0.0 K/mm3 12/25/20 05:28 Lymphocytes # (Manual) 0.7 K/mm3 (1.2-5.4) L 12/25/20 05:28 Abs React Lymphs (Man) 0.0 K/mm3 12/25/20 05:28 Monocytes # (Manual) 0.3 K/mm3 (0.0-0.8) 12/25/20 05:28 Eosinophils # (Manual) 0.1 K/mm3 (0.0-0.4) 12/25/20 05:28 Basophils # (Manual) 0.0 K/mm3 (0.0-0.1) 12/25/20 05:28 Metamyelocytes # 0.0 K/mm3 12/25/20 05:28 Myelocytes # 0.0 K/mm3 12/25/20 05:28 Promyelocytes # 0.0 K/mm3 12/25/20 05:28 Blast Cells # 0.0 K/mm3 12/25/20 05:28 WBC Morphology Not Reportable 12/25/20 05:28 Hypersegmented Neuts Not Reportable 12/25/20 05:28 Hyposegmented Neuts Not Reportable 12/25/20 05:28 Hypogranular Neuts Not Reportable 12/25/20 05:28 Smudge Cells Not Reportable 12/25/20 05:28 Toxic Granulation Not Reportable 12/25/20 05:28 Toxic Vacuolation Not Reportable 12/25/20 05:28 Dohle Bodies Not Reportable 12/25/20 05:28 Pelger-Huet Anomaly Not Reportable 12/25/20 05:28 Katia Rods Not Reportable 12/25/20 05:28 Platelet Estimate Consistent w auto 12/25/20 05:28 Clumped Platelets Not Reportable 12/25/20 05:28 Plt Clumps, EDTA Not Reportable 12/25/20 05:28 Large Platelets Not Reportable 12/25/20 05:28 Giant Platelets Not Reportable 12/25/20 05:28 Platelet Satelliting Not Reportable 12/25/20 05:28 Plt Morphology Comment Not Reportable 12/25/20 05:28 RBC Morphology Not Reportable 12/25/20 05:28 Dimorphic RBCs Not Reportable 12/25/20 05:28 Polychromasia Not Reportable 12/25/20 05:28 Hypochromasia 1+ 12/25/20 05:28 Poikilocytosis 1+ 12/25/20 05:28 Anisocytosis 3+ 12/25/20 05:28 Microcytosis Not Reportable 12/25/20 05:28 Macrocytosis Not Reportable 12/25/20 05:28 Spherocytes Not Reportable 12/25/20 05:28 Pappenheimer Bodies Not Reportable 12/25/20 05:28 Sickle Cells Not Reportable 12/25/20 05:28 Target Cells Not Reportable 12/25/20 05:28 Tear Drop Cells 1+ 12/25/20 05:28 Ovalocytes 1+ 12/25/20 05:28 Helmet Cells Not Reportable 12/25/20 05:28 Suarez-[place] Bodies Not Reportable 12/25/20 05:28 [place] Rings Not Reportable 12/25/20 05:28 [place] Cells Not Reportable 12/25/20 05:28 Bite Cells Not Reportable 12/25/20 05:28 Crenated Cell Not Reportable 12/25/20 05:28 Elliptocytes Few 12/25/20 05:28 Acanthocytes (Spur) Not Reportable 12/25/20 05:28 Rouleaux Not Reportable 12/25/20 05:28 Hemoglobin C Crystals Not Reportable 12/25/20 05:28 Schistocytes Not Reportable 12/25/20 05:28 Malaria parasites Not Reportable 12/25/20 05:28 Jl Bodies Not Reportable 12/25/20 05:28 Haptoglobin 38 mg/dL (43-212) L 12/23/20 14:13 Hem Pathologist Commnt No 12/25/20 05:28 PT 14.6 Sec. (12.2-14.9) 12/21/20 12:43 INR 1.03 (0.87-1.13) 12/21/20 12:43 APTT 29.5 Sec. (24.2-36.6) 12/21/20 12:43 Sodium 135 mmol/L (137-145) L 12/25/20 05:28 Potassium 3.7 mmol/L (3.6-5.0) 12/25/20 05:28 Chloride 101.8 mmol/L (98-107) 12/25/20 05:28 Carbon Dioxide 25 mmol/L (22-30) 12/25/20 05:28 Anion Gap 12 mmol/L 12/25/20 05:28 BUN 7 mg/dL (9-20) L 12/25/20 05:28 Creatinine 0.6 mg/dL (0.8-1.3) L 12/25/20 05:28 Estimated GFR > 60 ml/min 12/25/20 05:28 BUN/Creatinine Ratio 12 % 12/25/20 05:28 Glucose 136 mg/dL (75-100) H 12/25/20 05:28 Calcium 8.3 mg/dL (8.4-10.2) L 12/25/20 05:28 Iron 20 ug/dL (49-181) L 12/23/20 14:13 TIBC 417 mcg/dL (250-450) 12/23/20 14:13 Ferritin 52.4 ng/mL (30.0-300.0) 12/23/20 14:13 Lactate Dehydrogenase 175 units/L (91-180) 12/23/20 14:13 Blood Type A POSITIVE 12/21/20 15:30 Antibody Screen Negative 12/21/20 15:30 Crossmatch See Detail 12/21/20 15:30 Parker/IV: Voiding Method Urinal Active Medications - Current Medications Current Medications: Generic Name Dose Route Start Last Admin Trade Name Venuq PRN Reason Stop Dose Admin Acetaminophen 650 mg 12/21/20 17:11 12/22/20 23:53 Acetaminophen 325 Mg Tab PO 650 mg Q4H PRN Administration Pain MILD(1-3)/Fever >100.5/DURÁN Albuterol 2.5 mg 12/21/20 17:11 Albuterol 2.5 Mg/3 Ml Nebu IH Q4HRT PRN Shortness Of Breath Hydromorphone HCl 0.25 mg 12/21/20 17:11 12/26/20 10:12 Hydromorphone 1 Mg/1 Ml Inj IV 0.25 mg Q23H PRN Administration Pain, Moderate (4-6) Sodium Chloride 1,000 mls @ 42 mls/hr 12/21/20 17:15 12/23/20 18:03 Nacl 0.9% 1000 Ml IV 42 mls/hr DIRECT LUCIAN Administration Ondansetron HCl 4 mg 12/21/20 17:11 12/22/20 03:01 Ondansetron 4 Mg/2 Ml Inj IV 4 mg Q8H PRN Administration Nausea And Vomiting Oxycodone/Acetaminophen 1 tab 12/21/20 17:11 12/26/20 00:20 Oxycodone /Acetaminophen 5-325mg Tab PO 1 tab Q16H PRN Administration Pain, Moderate (4-6) Pantoprazole Sodium 40 mg 12/26/20 16:30 12/26/20 18:04 Pantoprazole 40 Mg Tab PO 40 mg BIDAC LUCIAN Administration Sodium Chloride 10 ml 12/21/20 22:00 12/26/20 10:00 Sodium Chloride 0.9% 10 Ml Flush Syringe IV Not Given BID LUCIAN Sodium Chloride 10 ml 12/21/20 17:11 12/26/20 10:14 Sodium Chloride 0.9% 10 Ml Flush Syringe IV 10 ml PRN PRN Administration LINE FLUSH
[2020-12-27 07:06] LABS: Abnormal Protein Band 1 0.4 g/dL; Albumin 2.8 g/dL (3.8-4.8); Gamma Globulin 0.8 g/dL (0.8-1.7)
[2020-12-27] MEDS: PANTOPRAZOLE 40 MG TAB PO SCH (08:45)
[2020-12-27 09:54] LABS: Alanine Aminotransferase 11 units/L (7-56); Albumin 3.2 g/dL (3.9-5); Blood Urea Nitrogen 10 mg/dL (9-20); Calcium 8.1 mg/dL (8.4-10.2); Hemolysis Index 3
[2020-12-27 10:22] LABS: BUN/Creatinine Ratio 20
--- NOTE | 2020-12-27 17:40 | Discharge Summary ---
Providers - Providers Date of Admission: 12/21/20 17:11 Attending physician: TAM CHOU MD 12/22/20 09:17 Consult to Physician [CONS] Routine Comment: Consulting Provider: EDWIGE BLACK Physician Instructions: Reason For Exam: severe anemia 12/23/20 07:21 Consult to Physician [CONS] Routine Comment: Consulting Provider: MILLI JON Physician Instructions: Reason For Exam: anemia, pancytopenia 12/23/20 18:26 Physical Therapy Evaluation and Treat [CONS] Routine Comment: Reason For Exam: Eval for generalized weakness Primary care physician: TOW [employer]IVER Hospitalization Condition: Stable Disposition: 01 HOME / SELF CARE / HOMELESS Exam - Constitutional Vitals: Temp Pulse Resp BP Pulse Ox 98.6 F 90 18 142/63 95 12/27/20 11:02 12/27/20 11:02 12/27/20 11:02 12/27/20 11:02 12/27/20 12:11 General appearance: Present: no acute distress - EENT Eyes: Present: PERRL, EOM intact - Neck Neck: Present: supple - Respiratory Respiratory effort: normal Respiratory: bilateral: CTA - Cardiovascular Rhythm: regular - Extremities Extremities: No edema - Abdominal General gastrointestinal: Present: deferred, soft, non-tender, non-distended - Integumentary Integumentary: Absent: rash - Psychiatric Psychiatric: appropriate mood/affect - Neurologic Neurologic: no focal deficits Plan Activity: advance as tolerated Diet: diabetic (1800) Additional Instructions: Have a follow-up with hematology/blood doctor at [facility] in a week. Your bone marrow biopsy report is still pending. Follow up with: THAD FUCHS MD [Primary Care Provider] - 7 Days
[2020-12-27 19:38] LABS: Hemoglobin 7.8 gm/dl (11.8-15.2); Mean Corpuscular HGB Conc 30 % (32-34); Mean Corpuscular Volume 78 fl (84-94); Platelet Count 198 K/mm3 (140-440); Red Blood Count 3.35 M/mm3 (3.65-5.03)
[2020-12-27 19:39] LABS: Red Cell Distribution Width 31.3 % (13.2-15.2)
[2020-12-27 19:50] LABS: Anisocytosis 2+; Hypochromasia 1+; Ovalocytes 1+; Poikilocytosis 1+; Tear Drop Cells 1+; Total Cells Counted 100
[2020-12-27 22:10] VITALS: BP 146/65
== END 2020-12-27 20:45 | disposition home or self-care (01) | DRG 378 ==
LOC: ED 10:45 → 4A 17:11
PROVIDERS: ADMIT Internal Medicine; ATTEND Internal Medicine
PROC: 30233N1 Transfusion of Nonautologous Red Blood Cells into Peripheral Vein, Percutaneous Approach (ICD-10-PCS; principal; 2020-12-21)
PROC: 07DR3ZX Extraction of Iliac Bone Marrow, Percutaneous Approach, Diagnostic (ICD-10-PCS; 2020-12-24)
DX: K92.2 Gastrointestinal hemorrhage, unspecified (principal); D61.818 Other pancytopenia; D50.0 Iron deficiency anemia secondary to blood loss (chronic); M19.90 Unspecified osteoarthritis, unspecified site; Z20.822 Contact with and (suspected) exposure to COVID-19; E11.9 Type 2 diabetes mellitus without complications; Z83.3 Family history of diabetes mellitus; Z82.49 Family history of ischemic heart disease and other diseases of the circulatory system
CPT/HCPCS: 36415; 38222; 80048; 80053; 82728; 83010; 83550; 83615; 84165; 85007; 85025; 85045; 85097; 85610; 85730; 86334; 86850; 86900; 86901; 86922; 88161; 88184; 88185; 88230; 88291; 88305; 88311; 88313; 94640; G0378; C9113; J1170; J1940; J2270; J2405; J7030; J7040; P9016

== ENCOUNTER 2021-02-24 11:39 | Inpatient (IN) | payer SELFPAY ==
--- NOTE | 2021-02-24 12:23 | Emergency Department Report ---
- General Chief complaint: Medical Clearance Stated complaint: DIZZINESS, WEAKNESS FAILURE TO THRIVE Time Seen by Provider: 02/24/21 11:52 Source: patient, EMS, old records reviewed Mode of arrival: Wheelchair Limitations: No Limitations - History of Present Illness Initial comments: 65-year-old male with a past medical history of diabetes type 2 (off meds for at least 2 months) and chronic anemia with transfusion dependence with several transfusions over the last 6 years as per medical history presents to the hospital complain of generalized weakness x1 week. He has had similar symptoms in the past when he was anemic. He denies current symptoms of hematemesis, melena, or gross blood in stool. He is unclear as to why he has recurrent anemia. Patient now is too weak to walk due to lightheadedness. He also reports that he has had poor food intake because he does not have anyone to take him to the store and he has not eaten in 2 days. Weight loss reported. Patient states last time he was here he required a blood transfusion and was encouraged to follow-up at [facility]. Patient continues to smoke but denies alcohol and drug use for the last 20 years. He has been ambulating with a walker since April 2020 due to intermittent left leg spasms. He complains of occasional cough without fever. patient is vaccinated for Covid. Previous medical record reviewed since pt is unclear about medical history. As per medical record review patient has a history of ITP status post IVIG in March 2020 and had normal platelet counts for a few months after that. As per discharge summary December 2020 previous history also includes the following below: 03/2020: SPEP: faint abn band, hgb electrophoresis nl, EZRA neg, Daren neg h/o AVM, presumed to have chronic bleeding but he says no visible bleeding admitted to [facility] 03/2020-->RBC and steroids, IVIG, presumed AIHA but daren neg readmitted 08/2020 and 10/2020 for severe anemia-->RBC transfusions now back in [facility] for severe anemia Hgb 3.5, weakness, lightheaded s/p RBC transfusions on 12/22 found to have low plt counts again 30's as per GI note 12/2020 admission # Symptomatic anemia - multiple admissions this year for symptomatic anemia with Hgb severely low down to 2-3 range. - no overt signs of GI bleeding. - He was seen in 03/2020 admission with GI and had EGD/colonoscopy done with Dr. Sellers without any GI pathology to explain for the anemia. - hgb responded to blood transfusion. Rec - would hold off repeat EGD/colonoscopy given no signs of GI bleeding. - recommend hem/onc evaluation for pancytopenia. Previously was given IVIG and steroids for autoimmune process. - consider outpatient pillcam for small bowel evaluation if persistent anemia. - will sign off. please call as needed. - Related Data Previous Rx's Medication Instructions Recorded Last Taken Type Insulin Regular, Human [HumuLIN R] 0 unit SQ AC #1 vial 08/20/20 Unknown Rx Metoprolol [Lopressor TAB] 25 mg PO BID #60 tablet 08/20/20 Unknown Rx Allergies Allergy/AdvReac Type Severity Reaction Status Date / Time No Known Allergies Allergy Verified 08/27/17 07:25 ED Review of Systems ROS: Stated complaint: DIZZINESS, WEAKNESS FAILURE TO THRIVE Other details as noted in HPI Comment: All other systems reviewed and negative ED Past Medical Hx - Past Medical History Hx Hypertension: No Hx Heart Attack/AMI: No Hx Congestive Heart Failure: No Hx Diabetes: Yes Hx Deep Vein Thrombosis: No Hx GERD: Yes Hx Liver Disease: No Hx Renal Disease: No Hx Sickle Cell Disease: No Hx Arthritis: Yes Hx Seizures: No Hx Asthma: No Hx COPD: No Hx Dementia: No Hx HIV: No Additional medical history: ANEMIA. Proximal gut and multiple colon AVM's (endoscopy/colonoscopy March 2017). hep C. Pancytopenia. Recurrent anemia requiring blood transfusion. ITP - Surgical History Hx Coronary Stent: No Hx Pacemaker: No Hx Internal Defibrillator: No - Social History Smoking Status: Current Every Day Smoker - Medications Home Medications: Home Medications Medication Instructions Recorded Confirmed Last Taken Type Insulin Regular, Human [HumuLIN R] 0 unit SQ AC #1 vial 08/20/20 12/24/20 Unknown Rx Metoprolol [Lopressor TAB] 25 mg PO BID #60 tablet 08/20/20 12/24/20 Unknown Rx ED Physical Exam - General Limitations: No Limitations - Other Other exam information: General: No acute distress Head: Atraumatic Eyes: normal appearance ENT: Moist mucous membranes, pale tongue, pale conjunctiva Neck: Normal appearance, no midline tenderness Chest: Clear to auscultation bilaterally CV: Regular rate and rhythm Abdomen: Soft, normal bowel sounds, nontender, nondistended, no rebound or guarding Rectal: Guaiac positive brown stool without gross blood or melena Back: Normal inspection Extremity: Normal inspection, full range of motion Neuro: Alert O x 3, no facial asymmetry, speech clear, no gross motor sensory deficit, [id number] intact Psych: Appropriate behavior Skin: No rash ED Course Vital Signs 02/24/21 02/24/21 02/24/21 11:42 13:01 13:16 Temperature 98.1 F Pulse Rate 89 82 85 Respiratory 16 18 21 Rate Blood Pressure Blood Pressure 107/54 [Right] O2 Sat by Pulse 97 100 100 Oximetry 02/24/21 02/24/21 13:30 13:46 Temperature Pulse Rate 83 96 H Respiratory 14 20 Rate Blood Pressure 113/38 113/38 Blood Pressure [Right] O2 Sat by Pulse 100 97 Oximetry - Consultations Consultation #1: 02/24/21 14:54 Case discussed with GI on-call Dr. Carly Jaramillo who will consult during admission ED Medical Decision Making - Lab Data Result diagrams: 02/24/21 13:54 02/24/21 13:04 Lab Results 02/24/21 02/24/21 02/24/21 Range/Units 12:20 12:27 13:04 WBC (4.5-11.0) K/mm3 RBC (3.65-5.03) M/mm3 Hgb (11.8-15.2) gm/dl Hct (35.5-45.6) % MCV (84-94) fl MCH (28-32) pg MCHC (32-34) % RDW (13.2-15.2) % Plt Count (140-440) K/mm3 WBC Morphology PT 15.4 H (12.2-14.9) Sec. INR 1.10 (0.87-1.13) APTT 33.8 (24.2-36.6) Sec. Sodium (137-145) mmol/L Potassium (3.6-5.0) mmol/L Chloride (98-107) mmol/L Carbon Dioxide (22-30) mmol/L Anion Gap mmol/L BUN (9-20) mg/dL Creatinine (0.8-1.3) mg/dL Estimated GFR ml/min BUN/Creatinine Ratio % Glucose (75-100) mg/dL POC Glucose 90 (70-105) mg/dL Calcium (8.4-10.2) mg/dL Total Bilirubin (0.1-1.2) mg/dL AST (5-40) units/L ALT (7-56) units/L Alkaline Phosphatase (35-129) units/L Total Protein (6.3-8.2) g/dL Albumin (3.9-5) g/dL Albumin/Globulin Ratio % Blood Type A POSITIVE Antibody Screen Positive 02/24/21 02/24/21 02/24/21 Range/Units 13:04 13:54 13:54 WBC 2.7 L (4.5-11.0) K/mm3 RBC 2.10 L (3.65-5.03) M/mm3 Hgb 3.3 L* (11.8-15.2) gm/dl Hct 13.7 L* (35.5-45.6) % MCV 65 L (84-94) fl MCH 16 L (28-32) pg MCHC 24 L (32-34) % RDW 21.2 H (13.2-15.2) % Plt Count 59 L (140-440) K/mm3 WBC Morphology TNR PT (12.2-14.9) Sec. INR (0.87-1.13) APTT (24.2-36.6) Sec. Sodium 135 L (137-145) mmol/L Potassium 3.7 (3.6-5.0) mmol/L Chloride 102.6 (98-107) mmol/L Carbon Dioxide 21 L (22-30) mmol/L Anion Gap 15 mmol/L BUN 13 (9-20) mg/dL Creatinine 0.6 L (0.8-1.3) mg/dL Estimated GFR > 60 ml/min BUN/Creatinine Ratio 22 % Glucose 108 H (75-100) mg/dL POC Glucose (70-105) mg/dL Calcium 8.2 L (8.4-10.2) mg/dL Total Bilirubin 1.10 (0.1-1.2) mg/dL AST 11 (5-40) units/L ALT 8 (7-56) units/L Alkaline Phosphatase 63 (35-129) units/L Total Protein 5.6 L (6.3-8.2) g/dL Albumin 3.6 L (3.9-5) g/dL Albumin/Globulin Ratio 1.8 % Blood Type Antibody Screen - EKG Data -: EKG Interpreted by Me EKG shows normal: sinus rhythm (83), intervals (qtc interval normal), QRS complexes (qrsd normal), ST-T waves (no stemi) - Medical Decision Making 65-year-old male presents to the hospital with generalized weakness with severe anemia. Patient has evidence of pancytopenia with history of same in the past requiring blood transfusion. Patient also has history of GI AVM and denies rectal bleeding or hematemesis however, he does have guaiac positive brown stool without gross blood or melena. Patient has never followed up as an outpatient heme-onc at [facility] as recommended during last admission. 2 units of PRBC ordered. GI consulted. Hospitalist to admit Critical Care Time: No Critical care attestation.: If time is entered above; I have spent that time in minutes in the direct care of this critically ill patient, excluding procedure time. ED Disposition Clinical Impression: Pancytopenia, Symptomatic anemia, Guaiac positive stools Disposition: ADMITTED INPATIENT Is pt being admited?: Yes Condition: Stable Time of Disposition: 14:50 (Dr Obrien/hosp)
[2021-02-24] MEDS ORDERED: SODIUM CHLORIDE 0.9% 1000 ML 1,000 ML IV ONE (12:28)
[2021-02-24 13:43] LABS: INR 1.1 (0.87-1.13)
[2021-02-24 13:44] LABS: Partial Thromboplastin Time 33.8 Sec. (24.2-36.6)
[2021-02-24 13:45] LABS: Alanine Aminotransferase 8 units/L (7-56); Albumin 3.6 g/dL (3.9-5); Blood Urea Nitrogen 13 mg/dL (9-20); Calcium 8.2 mg/dL (8.4-10.2); Hemolysis Index 2
[2021-02-24 13:55] LABS: BUN/Creatinine Ratio 22
[2021-02-24 14:20] LABS: Mean Corpuscular HGB Conc 24 % (32-34)
[2021-02-24 14:24] LABS: Hematocrit 13.7 % (35.5-45.6); Hemoglobin 3.3 gm/dl (11.8-15.2); Mean Corpuscular Volume 65 fl (84-94); Platelet Count 59 K/mm3 (140-440); Red Cell Distribution Width 21.2 % (13.2-15.2)
[2021-02-24] MEDS ORDERED: SODIUM CHLORIDE 0.9% 500 ML 500 ML IV ONE (14:32)
[2021-02-24 15:09] LABS: Total Cells Counted 100
[2021-02-24 15:10] LABS: Hypochromasia 3+; Platelet Estimate Appears Decreased; Schistocytes Rare; Tear Drop Cells 1+
[2021-02-24 18:52] LABS: Bilirubin,Urine NEG (Negative); Blood,Urine NEG (Negative); Color,Urine Yellow (Yellow); Protein,Urine <15 mg/dL mg/dL (Negative)
--- NOTE | 2021-02-24 19:30 | History and Physical Report ---
History of Present Illness Date of examination: 02/24/21 Date of admission: 02/24/21 14:50 Chief complaint: Generalized weakness for 1 week History of present illness: 55-year-old male with past medical history significant for chronic anemia with transfusion dependence and type 2 diabetes comes in for generalized weakness of 1 week duration. Patient has been getting recurrent blood transfusions. No hematemesis melena or gross blood in stool. Patient has severe lightheadedness which precludes him from walking. Patient is supposed to follow-up with [facility]. History of AVMs. Extensive work-up was done. As per GI note of 12/2020--no GI pathology to explain her anemia. PillCam was recommended for small bowel evaluation as outpatient. - Past Medical History --Diabetes: Yes --GERD: Yes --Arthritis: Yes --Additional medical history: ANEMIA. Proximal gut and multiple colon AVM's (endoscopy/colonoscopy March 2017). hep C. Pancytopenia. Recurrent anemia requiring blood transfusion. ITP - Surgical History --Coronary Stent: No - Social History --Smoking Status: Current Every Day Smoker -Family history --T2DM - Medications --Home Medications: Home Medications Medication Instructions Recorded Confirmed Last Taken Type Insulin Regular, Human [HumuLIN R] 0 unit SQ AC #1 vial 08/20/20 12/24/20 Unknown Rx Metoprolol [Lopressor TAB] 25 mg PO BID #60 tablet 08/20/20 12/24/20 Unknown Rx Review of Systems --ROS: ---Stated complaint: DIZZINESS, WEAKNESS FAILURE TO THRIVE ---Other details as noted in HPI --Comment: All other systems reviewed and negative Medications and Allergies Allergies Allergy/AdvReac Type Severity Reaction Status Date / Time No Known Allergies Allergy Verified 08/27/17 07:25 Home Medications Medication Instructions Recorded Confirmed Last Taken Type Insulin Regular, Human [HumuLIN R] 0 unit SQ AC #1 vial 08/20/20 12/24/20 Unknown Rx Metoprolol [Lopressor TAB] 25 mg PO BID #60 tablet 08/20/20 12/24/20 Unknown Rx Exam - Constitutional Vitals: Temp Pulse Resp BP Pulse Ox 98.1 F 94 H 12 100/44 100 02/24/21 11:42 02/24/21 18:00 02/24/21 18:00 02/24/21 18:00 02/24/21 17:00 General appearance: Present: no acute distress, well-nourished - EENT Eyes: Present: PERRL ENT: hearing intact, clear oral mucosa, other (Pale mucous membranes) - Neck Neck: Present: supple, normal ROM - Respiratory Respiratory effort: normal Respiratory: bilateral: CTA - Cardiovascular Heart Sounds: Present: S1 & S2. Absent: rub, click - Extremities Extremities: pulses symmetrical, No edema Peripheral Pulses: within normal limits - Abdominal General gastrointestinal: Present: soft, non-tender, non-distended, normal bowel sounds Male genitourinary: Present: normal - Integumentary Integumentary: Present: clear, warm, dry - Musculoskeletal Musculoskeletal: gait normal, strength equal bilaterally - Psychiatric Psychiatric: appropriate mood/affect, intact judgment & insight - Neurologic Neurologic: CNII-XII intact, moves all extremities Results - Labs CBC & Chem 7: 02/24/21 13:54 02/24/21 13:04 Labs: Laboratory Last Values WBC 2.7 K/mm3 (4.5-11.0) L 02/24/21 13:54 RBC 2.10 M/mm3 (3.65-5.03) L 02/24/21 13:54 Hgb 3.3 gm/dl (11.8-15.2) L* 02/24/21 13:54 Hct 13.7 % (35.5-45.6) L* 02/24/21 13:54 MCV 65 fl (84-94) L 02/24/21 13:54 MCH 16 pg (28-32) L 02/24/21 13:54 MCHC 24 % (32-34) L 02/24/21 13:54 RDW 21.2 % (13.2-15.2) H 02/24/21 13:54 Plt Count 59 K/mm3 (140-440) L 02/24/21 13:54 Add Manual Diff Complete 02/24/21 13:54 Total Counted 100 02/24/21 13:54 Seg Neuts % (Manual) 70.0 % (40.0-70.0) 02/24/21 13:54 Lymphocytes % (Manual) 24.0 % (13.4-35.0) 02/24/21 13:54 Monocytes % (Manual) 2.0 % (0.0-7.3) 02/24/21 13:54 Eosinophils % (Manual) 1.0 % (0.0-4.3) 02/24/21 13:54 Basophils % (Manual) 2.0 % (0.0-1.8) H 02/24/21 13:54 Metamyelocytes % 1.0 % 02/24/21 13:54 Nucleated RBC % Not Reportable 02/24/21 13:54 Seg Neutrophils # Man 1.9 K/mm3 (1.8-7.7) 02/24/21 13:54 Band Neutrophils # 0.0 K/mm3 02/24/21 13:54 Lymphocytes # (Manual) 0.6 K/mm3 (1.2-5.4) L 02/24/21 13:54 Abs React Lymphs (Man) 0.0 K/mm3 02/24/21 13:54 Monocytes # (Manual) 0.1 K/mm3 (0.0-0.8) 02/24/21 13:54 Eosinophils # (Manual) 0.0 K/mm3 (0.0-0.4) 02/24/21 13:54 Basophils # (Manual) 0.1 K/mm3 (0.0-0.1) 02/24/21 13:54 Metamyelocytes # 0.0 K/mm3 02/24/21 13:54 Myelocytes # 0.0 K/mm3 02/24/21 13:54 Promyelocytes # 0.0 K/mm3 02/24/21 13:54 Blast Cells # 0.0 K/mm3 02/24/21 13:54 WBC Morphology Not Reportable 02/24/21 13:54 WBC Morphology TNR 02/24/21 13:54 Hypersegmented Neuts Not Reportable 02/24/21 13:54 Hyposegmented Neuts Not Reportable 02/24/21 13:54 Hypogranular Neuts Not Reportable 02/24/21 13:54 Smudge Cells Not Reportable 02/24/21 13:54 Toxic Granulation Not Reportable 02/24/21 13:54 Toxic Vacuolation Not Reportable 02/24/21 13:54 Dohle Bodies Not Reportable 02/24/21 13:54 Pelger-Huet Anomaly Not Reportable 02/24/21 13:54 Katia Rods Not Reportable 02/24/21 13:54 Platelet Estimate Appears decreased 02/24/21 13:54 Clumped Platelets Not Reportable 02/24/21 13:54 Plt Clumps, EDTA Not Reportable 02/24/21 13:54 Large Platelets Not Reportable 02/24/21 13:54 Giant Platelets Not Reportable 02/24/21 13:54 Platelet Satelliting Not Reportable 02/24/21 13:54 Plt Morphology Comment Not Reportable 02/24/21 13:54 RBC Morphology Not Reportable 02/24/21 13:54 Dimorphic RBCs Not Reportable 02/24/21 13:54 Polychromasia Not Reportable 02/24/21 13:54 Hypochromasia 3+ 02/24/21 13:54 Poikilocytosis Not Reportable 02/24/21 13:54 Anisocytosis Not Reportable 02/24/21 13:54 Microcytosis Not Reportable 02/24/21 13:54 Macrocytosis Not Reportable 02/24/21 13:54 Spherocytes Not Reportable 02/24/21 13:54 Pappenheimer Bodies Not Reportable 02/24/21 13:54 Sickle Cells Not Reportable 02/24/21 13:54 Target Cells Not Reportable 02/24/21 13:54 Tear Drop Cells 1+ 02/24/21 13:54 Ovalocytes Not Reportable 02/24/21 13:54 Helmet Cells Not Reportable 02/24/21 13:54 Suarez-[place] Bodies Not Reportable 02/24/21 13:54 [place] Rings Not Reportable 02/24/21 13:54 [place] Cells Not Reportable 02/24/21 13:54 Bite Cells Not Reportable 02/24/21 13:54 Crenated Cell Not Reportable 02/24/21 13:54 Elliptocytes 1+ 02/24/21 13:54 Acanthocytes (Spur) Not Reportable 02/24/21 13:54 Rouleaux Not Reportable 02/24/21 13:54 Hemoglobin C Crystals Not Reportable 02/24/21 13:54 Schistocytes Rare 02/24/21 13:54 Malaria parasites Not Reportable 02/24/21 13:54 Jl Bodies Not Reportable 02/24/21 13:54 Hem Pathologist Commnt No 02/24/21 13:54 PT 15.4 Sec. (12.2-14.9) H 02/24/21 13:04 INR 1.10 (0.87-1.13) 02/24/21 13:04 APTT 33.8 Sec. (24.2-36.6) 02/24/21 13:04 Sodium 135 mmol/L (137-145) L 02/24/21 13:04 Potassium 3.7 mmol/L (3.6-5.0) 02/24/21 13:04 Chloride 102.6 mmol/L (98-107) 02/24/21 13:04 Carbon Dioxide 21 mmol/L (22-30) L 02/24/21 13:04 Anion Gap 15 mmol/L 02/24/21 13:04 BUN 13 mg/dL (9-20) 02/24/21 13:04 Creatinine 0.6 mg/dL (0.8-1.3) L 02/24/21 13:04 Estimated GFR > 60 ml/min 02/24/21 13:04 BUN/Creatinine Ratio 22 % 02/24/21 13:04 Glucose 108 mg/dL (75-100) H 02/24/21 13:04 POC Glucose 90 mg/dL (70-105) 02/24/21 12:20 Calcium 8.2 mg/dL (8.4-10.2) L 02/24/21 13:04 Total Bilirubin 1.10 mg/dL (0.1-1.2) 02/24/21 13:04 AST 11 units/L (5-40) 02/24/21 13:04 ALT 8 units/L (7-56) 02/24/21 13:04 Alkaline Phosphatase 63 units/L (35-129) 02/24/21 13:04 Total Protein 5.6 g/dL (6.3-8.2) L 02/24/21 13:04 Albumin 3.6 g/dL (3.9-5) L 02/24/21 13:04 Albumin/Globulin Ratio 1.8 % 02/24/21 13:04 Urine Color Yellow (Yellow) 02/24/21 Unknown Urine Turbidity Clear (Clear) 02/24/21 Unknown Urine pH 5.0 (5.0-7.0) 02/24/21 Unknown Ur Specific [place] 1.012 (1.003-1.030) 02/24/21 Unknown Urine Protein <15 mg/dl mg/dL (Negative) 02/24/21 Unknown Urine Glucose (UA) Neg mg/dL (Negative) 02/24/21 Unknown Urine Ketones Neg mg/dL (Negative) 02/24/21 Unknown Urine Blood Neg (Negative) 02/24/21 Unknown Urine Nitrite Neg (Negative) 02/24/21 Unknown Urine Bilirubin Neg (Negative) 02/24/21 Unknown Urine Urobilinogen 4.0 mg/dL (<2.0) 02/24/21 Unknown Ur Leukocyte Esterase Neg (Negative) 02/24/21 Unknown Urine WBC (Auto) 1.0 /HPF (0.0-6.0) 02/24/21 Unknown Urine RBC (Auto) 1.0 /HPF (0.0-6.0) 02/24/21 Unknown Blood Type A POSITIVE 02/24/21 12:27 Antibody Screen Positive 02/24/21 12:27 JYOTI Antibody Screen Negative 02/24/21 13:04 Antibody Identification Non-specific Antibody 02/24/21 12:27 Crossmatch See Detail 02/24/21 13:04 Short CBC 02/24/21 Range/Units 13:54 WBC 2.7 L (4.5-11.0) K/mm3 Hgb 3.3 L* (11.8-15.2) gm/dl Hct 13.7 L* (35.5-45.6) % Plt Count 59 L (140-440) K/mm3 BMP 02/24/21 13:04 Sodium 135 L Potassium 3.7 Chloride 102.6 Carbon Dioxide 21 L BUN 13 Creatinine 0.6 L Glucose 108 H Calcium 8.2 L Liver Function 02/24/21 Range/Units 13:04 Total Bilirubin 1.10 (0.1-1.2) mg/dL AST 11 (5-40) units/L ALT 8 (7-56) units/L Alkaline Phosphatase 63 (35-129) units/L Albumin 3.6 L (3.9-5) g/dL Urine 02/24/21 Range/Units Unknown Urine Color Yellow (Yellow) Urine pH 5.0 (5.0-7.0) Ur Specific [place] 1.012 (1.003-1.030) Urine Protein <15 mg/dl (Negative) mg/dL Urine Glucose (UA) Neg (Negative) mg/dL Microbiology: Microbiology 02/24/21 14:39 Stool Stool Occult Blood (OSKAR) - Final Assessment and Plan Advance Directives: Yes Plan of care discussed with patient/family: Yes - Patient Problems (1) Symptomatic anemia Current Visit: Yes Status: Acute Plan to address problem: Transfused 3 to 4 units of packed red blood cells Patient was extensive AVMs Extensive GI work-up was done GI consult even though not expecting any procedures Patient was seen in December 2020 by GI and outpatient pill camera was recommended for AV malformations and small intestine Patient has AV malformation in the colon which may be the source of loss of blood. Will transfuse and if hemoglobin is more than 8 and 24 will discharge the patient (2) Pancytopenia Current Visit: Yes Status: Acute Plan to address problem: Etiology unclear Possible bone marrow suppression Heme-onc consult (3) IDDM (insulin dependent diabetes mellitus) Current Visit: Yes Status: Chronic Plan to address problem: Insulin coverage for now Check hemoglobin A1c. (4) DVT prophylaxis Current Visit: No Status: Acute Plan to address problem: On SCDs and GI prophylaxis (5) Advance care planning Current Visit: No Status: Acute Plan to address problem: Disease education conducted, care plan discussed, diagnosis discussed and patient acknowledges understanding with care plan. +30 minutes
[2021-02-24] MEDS ORDERED: SODIUM CHLORIDE 0.9% 1000 ML 1,000 ML ONE (19:44)
[2021-02-24] MEDS ORDERED: METOCLOPRAMIDE 10 MG/2 ML INJ IV PRN (22:29)
[2021-02-24] MEDS ORDERED: MORPHINE 2 MG/1 ML INJ IV PRN (22:29)
[2021-02-24] MEDS ORDERED: ONDANSETRON 4 MG/2 ML INJ IV PRN (22:29)
[2021-02-24] MEDS ORDERED: ACETAMINOPHEN 325 MG TAB PO PRN (22:29)
[2021-02-24] MEDS ORDERED: HYDROmorphone 1 MG/1 ML INJ IV PRN (22:29)
[2021-02-24] MEDS ORDERED: SODIUM CHLORIDE 0.9% 1000 ML 1,000 ML IV SCH (22:30)
[2021-02-25] MEDS: FAMOTIDINE 20 MG/2 ML INJ IV SCH ×3 (00:10→21:21)
[2021-02-25] MEDS: INSULIN LISPRO 100 UNIT/ML SUB-Q SCH ×3 (08:00→18:30)
[2021-02-25 10:19] LABS: Hematocrit TNR % (35.5-45.6); Hemoglobin TNR gm/dl (11.8-15.2); Mean Corpuscular HGB Conc TNR % (32-34); Mean Corpuscular Volume TNR fl (84-94); Red Blood Count TNR M/mm3 (3.65-5.03); Red Cell Distribution Width TNR % (13.2-15.2)
[2021-02-25 10:20] LABS: Platelet Count TNR K/mm3 (140-440)
[2021-02-25 10:23] LABS: Alanine Aminotransferase 7 units/L (7-56); Albumin 3.6 g/dL (3.9-5); Blood Urea Nitrogen 12 mg/dL (9-20); Calcium 8.1 mg/dL (8.4-10.2); Hemolysis Index 17
[2021-02-25 10:27] LABS: BUN/Creatinine Ratio 24
--- NOTE | 2021-02-25 11:59 | Gastroenterology Consultation ---
History of Present Illness - Reason for Consult Consult date: 02/25/21 anemia Requesting physician: ELIDIA HERNANDEZ - History of Present Illness The patient is a 65 yo with h/o chronic anemia/pancytopenia who presents with generalized weakness/symptomatic anemia. found to have hgb in mid 3's, similar to prior admissions. He has had multiple admissions this year for similar lab presentation. He had gi work-up earlier this year without obvious source of anemia seen during egd/colonoscopy. he has had egd/colonoscopy in 2018 with ablation of multiple avm's. pt denies any overt gi bleeding, abd pain, bowel habit changes, weight loss etc. Previously felt to have possibly autoimmune hemolytic anemia and has had IVIG tx and steroids in the past. has not seen hematology recently. Past History Past Medical History: other (pancytopenia, chronic anemia, gerd, diabetes) Past Surgical History: No surgical history Social history: no significant social history Medications and Allergies Allergies Allergy/AdvReac Type Severity Reaction Status Date / Time No Known Allergies Allergy Verified 08/27/17 07:25 Home Medications Medication Instructions Recorded Confirmed Last Taken Type Insulin Regular, Human [HumuLIN R] 0 unit SQ AC #1 vial 08/20/20 02/25/21 2 Weeks Ago Rx ~02/11/21 Active Meds: Active Medications Acetaminophen (Acetaminophen 325 Mg Tab) 650 mg PO Q4H PRN PRN Reason: Pain MILD(1-3)/Fever >100.5/DURÁN Famotidine (Famotidine 20 Mg/2 Ml Inj) 20 mg IV BID LUCIAN Last Admin: 02/25/21 10:57 Dose: 20 mg Documented by: Hydromorphone HCl (Hydromorphone 1 Mg/1 Ml Inj) 0.5 mg IV Q3H PRN PRN Reason: Pain , Severe (7-10) Last Admin: 02/25/21 01:15 Dose: 0.5 mg Documented by: Sodium Chloride (Nacl 0.9% 1000 Ml) 1,000 mls @ 42 mls/hr IV DIRECT LUCIAN Insulin Human Lispro (Insulin Lispro 100 Unit/Ml) 0 unit SUB-Q Q6HR LUICAN; Protocol Metoclopramide HCl (Metoclopramide 10 Mg/2 Ml Inj) 10 mg IV Q6H PRN PRN Reason: Nausea And Vomiting Morphine Sulfate (Morphine 2 Mg/1 Ml Inj) 2 mg IV Q4H PRN PRN Reason: Pain, Moderate (4-6) Ondansetron HCl (Ondansetron 4 Mg/2 Ml Inj) 4 mg IV Q8H PRN PRN Reason: Nausea And Vomiting Sodium Chloride (Sodium Chloride 0.9% 10 Ml Flush Syringe) 10 ml IV BID LUCIAN Last Admin: 02/25/21 10:57 Dose: 10 ml Documented by: Sodium Chloride (Sodium Chloride 0.9% 10 Ml Flush Syringe) 10 ml IV PRN PRN PRN Reason: LINE FLUSH reviewed/updated patient's home and current medications Review of Systems - Review of Systems All systems: negative (per HPI) Exam - Constitutional Vital Signs: Temp Pulse Resp BP Pulse Ox 100.1 F H 104 H 18 130/67 99 02/25/21 07:33 02/25/21 07:33 02/25/21 07:33 02/25/21 07:33 02/25/21 07:33 General appearance: no acute distress - Respiratory Respiratory effort: normal Respiratory: bilateral: CTA - Cardiovascular Rhythm: regular Heart Sounds: Present: S1 & S2 - Gastrointestinal General gastrointestinal: Present: soft, non-tender, non-distended - Integumentary Integumentary: Present: clear, warm - Neurologic Neurological: alert and oriented x3 - Psychiatric Psychiatric: appropriate mood/affect - Labs CBC & Chem 7: 02/25/21 09:14 02/25/21 09:14 Lab Results: Laboratory Results - last 24 hr 02/24/21 02/24/21 02/24/21 12:20 12:27 13:04 WBC RBC Hgb Hct MCV MCH MCHC RDW Plt Count Add Manual Diff Total Counted Seg Neuts % (Manual) Lymphocytes % (Manual) Monocytes % (Manual) Eosinophils % (Manual) Basophils % (Manual) Metamyelocytes % Nucleated RBC % Seg Neutrophils # Man Band Neutrophils # Lymphocytes # (Manual) Abs React Lymphs (Man) Monocytes # (Manual) Eosinophils # (Manual) Basophils # (Manual) Metamyelocytes # Myelocytes # Promyelocytes # Blast Cells # WBC Morphology Hypersegmented Neuts Hyposegmented Neuts Hypogranular Neuts Smudge Cells Toxic Granulation Toxic Vacuolation Dohle Bodies Pelger-Huet Anomaly Katia Rods Platelet Estimate Clumped Platelets Plt Clumps, EDTA Large Platelets Giant Platelets Platelet Satelliting Plt Morphology Comment RBC Morphology Dimorphic RBCs Polychromasia Hypochromasia Poikilocytosis Anisocytosis Microcytosis Macrocytosis Spherocytes Pappenheimer Bodies Sickle Cells Target Cells Tear Drop Cells Ovalocytes Helmet Cells [place] Bodies [place] Rings [place] Cells Bite Cells Crenated Cell Elliptocytes Acanthocytes (Spur) Rouleaux Hemoglobin C Crystals Schistocytes Malaria parasites Jl Bodies Hem Pathologist Commnt PT 15.4 H INR 1.10 APTT 33.8 Sodium Potassium Chloride Carbon Dioxide Anion Gap BUN Creatinine Estimated GFR BUN/Creatinine Ratio Glucose POC Glucose 90 Calcium Total Bilirubin AST ALT Alkaline Phosphatase Total Protein Albumin Albumin/Globulin Ratio Urine Color Urine Turbidity Urine pH Ur Specific [place] Urine Protein Urine Glucose (UA) Urine Ketones Urine Blood Urine Nitrite Urine Bilirubin Urine Urobilinogen Ur Leukocyte Esterase Urine WBC (Auto) Urine RBC (Auto) Blood Type A POSITIVE Antibody Screen Positive JYOTI Antibody Screen Antibody Identification Non-specific Antibody Crossmatch 02/24/21 02/24/21 02/24/21 13:04 13:04 13:54 WBC 2.7 L RBC 2.10 L Hgb 3.3 L* Hct 13.7 L* MCV 65 L MCH 16 L MCHC 24 L RDW 21.2 H Plt Count 59 L Add Manual Diff Complete Total Counted 100 Seg Neuts % (Manual) 70.0 Lymphocytes % (Manual) 24.0 Monocytes % (Manual) 2.0 Eosinophils % (Manual) 1.0 Basophils % (Manual) 2.0 H Metamyelocytes % 1.0 Nucleated RBC % Not Reportable Seg Neutrophils # Man 1.9 Band Neutrophils # 0.0 Lymphocytes # (Manual) 0.6 L Abs React Lymphs (Man) 0.0 Monocytes # (Manual) 0.1 Eosinophils # (Manual) 0.0 Basophils # (Manual) 0.1 Metamyelocytes # 0.0 Myelocytes # 0.0 Promyelocytes # 0.0 Blast Cells # 0.0 WBC Morphology Not Reportable Hypersegmented Neuts Not Reportable Hyposegmented Neuts Not Reportable Hypogranular Neuts Not Reportable Smudge Cells Not Reportable Toxic Granulation Not Reportable Toxic Vacuolation Not Reportable Dohle Bodies Not Reportable Pelger-Huet Anomaly Not Reportable Katia Rods Not Reportable Platelet Estimate Appears decreased Clumped Platelets Not Reportable Plt Clumps, EDTA Not Reportable Large Platelets Not Reportable Giant Platelets Not Reportable Platelet Satelliting Not Reportable Plt Morphology Comment Not Reportable RBC Morphology Not Reportable Dimorphic RBCs Not Reportable Polychromasia Not Reportable Hypochromasia 3+ Poikilocytosis Not Reportable Anisocytosis Not Reportable Microcytosis Not Reportable Macrocytosis Not Reportable Spherocytes Not Reportable Pappenheimer Bodies Not Reportable Sickle Cells Not Reportable Target Cells Not Reportable Tear Drop Cells 1+ Ovalocytes Not Reportable Helmet Cells Not Reportable [place] Bodies Not Reportable [place] Rings Not Reportable Luke Cells Not Reportable Bite Cells Not Reportable Crenated Cell Not Reportable Elliptocytes 1+ Acanthocytes (Spur) Not Reportable Rouleaux Not Reportable Hemoglobin C Crystals Not Reportable Schistocytes Rare Malaria parasites Not Reportable Jl Bodies Not Reportable Hem Pathologist Commnt No PT INR APTT Sodium 135 L Potassium 3.7 Chloride 102.6 Carbon Dioxide 21 L Anion Gap 15 BUN 13 Creatinine 0.6 L Estimated GFR > 60 BUN/Creatinine Ratio 22 Glucose 108 H POC Glucose Calcium 8.2 L Total Bilirubin 1.10 AST 11 ALT 8 Alkaline Phosphatase 63 Total Protein 5.6 L Albumin 3.6 L Albumin/Globulin Ratio 1.8 Urine Color Urine Turbidity Urine pH Ur Specific [place] Urine Protein Urine Glucose (UA) Urine Ketones Urine Blood Urine Nitrite Urine Bilirubin Urine Urobilinogen Ur Leukocyte Esterase Urine WBC (Auto) Urine RBC (Auto) Blood Type Antibody Screen JYOTI Antibody Screen Negative Antibody Identification Crossmatch See Detail 02/24/21 02/24/21 02/25/21 13:54 Unknown 09:14 WBC TNR RBC TNR Hgb TNR Hct TNR MCV TNR MCH TNR MCHC TNR RDW TNR Plt Count TNR Add Manual Diff Complete Total Counted Seg Neuts % (Manual) Lymphocytes % (Manual) Monocytes % (Manual) Eosinophils % (Manual) Basophils % (Manual) Metamyelocytes % Nucleated RBC % Not Reportable Seg Neutrophils # Man Band Neutrophils # Lymphocytes # (Manual) Abs React Lymphs (Man) Monocytes # (Manual) Eosinophils # (Manual) Basophils # (Manual) Metamyelocytes # Myelocytes # Promyelocytes # Blast Cells # WBC Morphology TNR Not Reportable Hypersegmented Neuts Not Reportable Hyposegmented Neuts Not Reportable Hypogranular Neuts Not Reportable Smudge Cells Not Reportable Toxic Granulation Not Reportable Toxic Vacuolation Not Reportable Dohle Bodies Not Reportable Pelger-Huet Anomaly Not Reportable Katia Rods Not Reportable Platelet Estimate Not Reportable Clumped Platelets Not Reportable Plt Clumps, EDTA Not Reportable Large Platelets Not Reportable Giant Platelets Not Reportable Platelet Satelliting Not Reportable Plt Morphology Comment Not Reportable RBC Morphology Not Reportable Dimorphic RBCs Not Reportable Polychromasia Not Reportable Hypochromasia Not Reportable Poikilocytosis Not Reportable Anisocytosis Not Reportable Microcytosis Not Reportable Macrocytosis Not Reportable Spherocytes Not Reportable Pappenheimer Bodies Not Reportable Sickle Cells Not Reportable Target Cells Not Reportable Tear Drop Cells Not Reportable Ovalocytes Not Reportable Helmet Cells Not Reportable [place] Bodies Not Reportable [place] Rings Not Reportable [place] Cells Not Reportable Bite Cells Not Reportable Crenated Cell Not Reportable Elliptocytes Not Reportable Acanthocytes (Spur) Not Reportable Rouleaux Not Reportable Hemoglobin C Crystals Not Reportable Schistocytes Not Reportable Malaria parasites Not Reportable Jl Bodies Not Reportable Hem Pathologist Commnt Not Reportable PT INR APTT Sodium Potassium Chloride Carbon Dioxide Anion Gap BUN Creatinine Estimated GFR BUN/Creatinine Ratio Glucose POC Glucose Calcium Total Bilirubin AST ALT Alkaline Phosphatase Total Protein Albumin Albumin/Globulin Ratio Urine Color Yellow Urine Turbidity Clear Urine pH 5.0 Ur Specific [place] 1.012 Urine Protein <15 mg/dl Urine Glucose (UA) Neg Urine Ketones Neg Urine Blood Neg Urine Nitrite Neg Urine Bilirubin Neg Urine Urobilinogen 4.0 Ur Leukocyte Esterase Neg Urine WBC (Auto) 1.0 Urine RBC (Auto) 1.0 Blood Type Antibody Screen JYOTI Antibody Screen Antibody Identification Crossmatch 02/25/21 02/25/21 09:14 09:21 WBC RBC Hgb Hct MCV MCH MCHC RDW Plt Count Add Manual Diff Total Counted Seg Neuts % (Manual) Lymphocytes % (Manual) Monocytes % (Manual) Eosinophils % (Manual) Basophils % (Manual) Metamyelocytes % Nucleated RBC % Seg Neutrophils # Man Band Neutrophils # Lymphocytes # (Manual) Abs React Lymphs (Man) Monocytes # (Manual) Eosinophils # (Manual) Basophils # (Manual) Metamyelocytes # Myelocytes # Promyelocytes # Blast Cells # WBC Morphology Hypersegmented Neuts Hyposegmented Neuts Hypogranular Neuts Smudge Cells Toxic Granulation Toxic Vacuolation Dohle Bodies Pelger-Huet Anomaly Katia Rods Platelet Estimate Clumped Platelets Plt Clumps, EDTA Large Platelets Giant Platelets Platelet Satelliting Plt Morphology Comment RBC Morphology Dimorphic RBCs Polychromasia Hypochromasia Poikilocytosis Anisocytosis Microcytosis Macrocytosis Spherocytes Pappenheimer Bodies Sickle Cells Target Cells Tear Drop Cells Ovalocytes Helmet Cells [place] Bodies [place] Rings Luke Cells Bite Cells Crenated Cell Elliptocytes Acanthocytes (Spur) Rouleaux Hemoglobin C Crystals Schistocytes Malaria parasites Jl Bodies Hem Pathologist Commnt PT INR APTT Sodium 139 Potassium 3.9 Chloride 107.9 H Carbon Dioxide 19 L Anion Gap 16 BUN 12 Creatinine 0.5 L Estimated GFR > 60 BUN/Creatinine Ratio 24 Glucose 163 H POC Glucose 159 H Calcium 8.1 L Total Bilirubin 1.60 H AST 12 ALT 7 Alkaline Phosphatase 67 Total Protein 5.5 L Albumin 3.6 L Albumin/Globulin Ratio 1.9 Urine Color Urine Turbidity Urine pH Ur Specific [place] Urine Protein Urine Glucose (UA) Urine Ketones Urine Blood Urine Nitrite Urine Bilirubin Urine Urobilinogen Ur Leukocyte Esterase Urine WBC (Auto) Urine RBC (Auto) Blood Type Antibody Screen JYOTI Antibody Screen Antibody Identification Crossmatch Assessment and Plan 1. Severe microcytic anemia 2. Pancytopenia -recurrent severe anemia in setting of pancytopenia. previously treated with ivig/steroids for suspected autoimmune hemolytic anemia. recommend hematology consult. needs to be on IV iron as well. no overt gi bleeding, and had egd/colonoscopy earlier this year without obvious source of anemia (albeit poor colon prep, but procedure completed per records). will manage conservatively from gi stand point at this time, okay for clear liquid diet.
[2021-02-25 13:34] LABS: Mean Corpuscular HGB Conc 29 % (32-34); Mean Corpuscular Volume 72 fl (84-94); Red Blood Count 2.32 M/mm3 (3.65-5.03)
[2021-02-25 13:37] LABS: Hematocrit 16.7 % (35.5-45.6); Hemoglobin 4.9 gm/dl (11.8-15.2); Platelet Count 41 K/mm3 (140-440); Red Cell Distribution Width 29.2 % (13.2-15.2)
[2021-02-25 14:14] LABS: Total Cells Counted 100
[2021-02-25 14:16] LABS: Anisocytosis 3+
[2021-02-25 14:17] LABS: Hypochromasia 2+; Ovalocytes Few; Poikilocytosis 1+; Tear Drop Cells Few
[2021-02-25 14:18] LABS: Platelet Estimate Consistent w Auto
--- NOTE | 2021-02-25 15:18 | Progress Note ---
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 Will transfuse and if hemoglobin is more than 8 and 24 will discharge the patient Hemoglobin is 4.9 and hematocrit is 16.7 2 transfuse 2 to 3 units of packed red blood cells and recheck CBC If hemoglobin is more than 8 patient to be discharged Patient has extensive AV malformations Follow-up with GI and hematology Follow-up with hematology for iron transfusions (2) Pancytopenia Current Visit: Yes Status: Acute Plan to address problem: Etiology unclear Possible bone marrow suppression Heme-onc consult (3) IDDM (insulin dependent diabetes mellitus) Current Visit: Yes Status: Chronic Plan to address problem: Insulin coverage for now Check hemoglobin A1c. (4) DVT prophylaxis Current Visit: No Status: Acute Plan to address problem: On SCDs and GI prophylaxis (5) Advance care planning Current Visit: No Status: Acute Plan to address problem: Disease education conducted, care plan discussed, diagnosis discussed and patient acknowledges understanding with care plan. +30 minutes Subjective Date of service: 02/25/21 Principal diagnosis: Chronic blood loss anemia Interval history: 55-year-old male with past medical history significant for chronic anemia with transfusion dependence and type 2 diabetes comes in for generalized weakness of 1 week duration. Patient has been getting recurrent blood transfusions. No hematemesis melena or gross blood in stool. Patient has severe lightheadedness which precludes him from walking. Patient is supposed to follow-up with [facility]. History of AVMs. Extensive work-up was done. As per GI note of 12/2020--no GI pathology to explain her anemia. PillCam was recommended for small bowel evaluation as outpatient. 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 Patient to get PillCam as outpatient Objective - Constitutional Vitals: Vital Signs - 12hr 02/25/21 02/25/21 02/25/21 05:01 05:10 05:21 Temperature Pulse Rate 106 H 104 H 105 H Respiratory 21 21 24 Rate Blood Pressure 117/52 123/54 123/54 O2 Sat by Pulse 100 100 100 Oximetry 02/25/21 02/25/21 02/25/21 05:31 05:40 05:51 Temperature Pulse Rate 107 H 102 H 126 H Respiratory 19 23 26 H Rate Blood Pressure 114/54 113/55 113/55 O2 Sat by Pulse 100 100 91 Oximetry 02/25/21 02/25/21 02/25/21 06:01 06:10 06:21 Temperature Pulse Rate 120 H 105 H 99 H Respiratory 13 20 23 Rate Blood Pressure 113/55 116/53 116/53 O2 Sat by Pulse 100 100 99 Oximetry 02/25/21 02/25/21 06:31 07:33 Temperature 100.1 F H Pulse Rate 104 H 104 H Respiratory 22 18 Rate Blood Pressure 113/59 130/67 O2 Sat by Pulse 99 99 Oximetry General appearance: Present: no acute distress, well-nourished - EENT Eyes: PERRL, EOM intact ENT: hearing intact, clear oral mucosa Ears: bilateral: normal - Neck Neck: supple, normal ROM - Respiratory Respiratory effort: normal Respiratory: bilateral: CTA - Breasts Breasts: normal - Cardiovascular Heart rate: 78 Rhythm: regular Heart Sounds: Present: S1 & S2. Absent: gallop, rub Extremities: pulses intact, No edema, normal color, Full ROM - Gastrointestinal General gastrointestinal: Present: soft, non-tender, non-distended, normal bowel sounds - Genitourinary Male genitourinary: normal - Integumentary Integumentary: clear, warm, dry - Musculoskeletal Musculoskeletal: 1, strength equal bilaterally - Neurologic Neurologic: moves all extremities - Psychiatric Psychiatric: memory intact, appropriate mood/affect, intact judgment & insight - Labs CBC & Chem 7: 02/26/21 05:05 02/25/21 09:14 Labs: Abnormal lab results 02/24/21 02/25/21 02/25/21 Range/Units 13:04 09:14 09:21 WBC (4.5-11.0) K/mm3 RBC (3.65-5.03) M/mm3 Hgb (11.8-15.2) gm/dl Hct (35.5-45.6) % MCV (84-94) fl MCH (28-32) pg MCHC (32-34) % RDW (13.2-15.2) % Plt Count (140-440) K/mm3 Seg Neuts % (Manual) (40.0-70.0) % Lymphocytes # (Manual) (1.2-5.4) K/mm3 Chloride 107.9 H (98-107) mmol/L Carbon Dioxide 19 L (22-30) mmol/L Creatinine 0.5 L (0.8-1.3) mg/dL Glucose 163 H (75-100) mg/dL POC Glucose 159 H (70-105) mg/dL Calcium 8.1 L (8.4-10.2) mg/dL Total Bilirubin 1.60 H (0.1-1.2) mg/dL Total Protein 5.5 L (6.3-8.2) g/dL Albumin 3.6 L (3.9-5) g/dL Crossmatch See Detail 02/25/21 Range/Units 12:42 WBC 3.3 L (4.5-11.0) K/mm3 RBC 2.32 L (3.65-5.03) M/mm3 Hgb 4.9 L* (11.8-15.2) gm/dl Hct 16.7 L* (35.5-45.6) % MCV 72 L (84-94) fl MCH 21 L (28-32) pg MCHC 29 L (32-34) % RDW 29.2 H (13.2-15.2) % Plt Count 41 L (140-440) K/mm3 Seg Neuts % (Manual) 74.0 H (40.0-70.0) % Lymphocytes # (Manual) 0.6 L (1.2-5.4) K/mm3 Chloride (98-107) mmol/L Carbon Dioxide (22-30) mmol/L Creatinine (0.8-1.3) mg/dL Glucose (75-100) mg/dL POC Glucose (70-105) mg/dL Calcium (8.4-10.2) mg/dL Total Bilirubin (0.1-1.2) mg/dL Total Protein (6.3-8.2) g/dL Albumin (3.9-5) g/dL Crossmatch
[2021-02-25] MEDS ORDERED: SODIUM CHLORIDE 0.9% 500 ML 500 ML IV ONE (16:00)
[2021-02-26] MEDS: INSULIN LISPRO 100 UNIT/ML SUB-Q SCH ×4 (00:48→17:09)
[2021-02-26 06:20] LABS: Hematocrit 28.8 % (35.5-45.6); Hemoglobin 8.7 gm/dl (11.8-15.2); Mean Corpuscular HGB Conc 30 % (32-34); Mean Corpuscular Volume 82 fl (84-94); Red Blood Count 3.51 M/mm3 (3.65-5.03)
[2021-02-26 06:24] LABS: Red Cell Distribution Width 27.6 % (13.2-15.2)
[2021-02-26 07:15] LABS: Platelet Count 44 K/mm3 (140-440)
[2021-02-26] MEDS: FAMOTIDINE 20 MG/2 ML INJ IV SCH ×2 (09:36→22:02)
--- NOTE | 2021-02-26 13:03 | Discharge Summary ---
Providers - Providers Date of Admission: 02/24/21 14:50 Attending physician: GOMEZ ARAYA MD 02/24/21 14:53 Consult to Physician [CONS] Urgent Comment: Consulting Provider: ARCENIO HOLLEY Physician Instructions: Reason For Exam: anemia, guaic Pos stool, hx of avm Primary care physician: SAWMILL TALLY CLERK Hospitalization Reason for admission: Anemia symptomatic Condition: Stable Hospital course: 55-year-old male with past medical history significant for chronic anemia with transfusion dependence and type 2 diabetes comes in for generalized weakness of 1 week duration. Patient has been getting recurrent blood transfusions. No hematemesis melena or gross blood in stool. Patient has severe lightheadedness which precludes him from walking. Patient is supposed to follow-up with [facility]. History of AVMs. Extensive work-up was done. As per GI note of 12/2020--no GI pathology to explain her anemia. PillCam was recommended for small bowel evaluation as outpatient. 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 Follow with GI and pl sql developer as recommended outpatient. 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 Will transfuse and if hemoglobin is more than 8 and 24 will discharge the patient Hemoglobin is 4.9 and hematocrit is 16.7 2 transfuse 2 to 3 units of packed red blood cells and recheck CBC If hemoglobin is more than 8 patient to be discharged Patient has extensive AV malformations Follow-up with GI and hematology Follow-up with hematology for iron transfusions (2) Pancytopenia Current Visit: Yes Status: Acute Plan to address problem: Etiology unclear Possible bone marrow suppression Heme-onc consult (3) IDDM (insulin dependent diabetes mellitus) Current Visit: Yes Status: Chronic Plan to address problem: Insulin coverage for now Check hemoglobin A1c. (4) DVT prophylaxis Current Visit: No Status: Acute Plan to address problem: On SCDs and GI prophylaxis (5) Advance care planning Current Visit: No Status: Acute Plan to address problem: Disease education conducted, care plan discussed, diagnosis discussed and patient acknowledges understanding with care plan. +30 minutes Disposition: 01 HOME / SELF CARE / HOMELESS Final Discharge Diagnosis (Prints w/discharge instructions): Symptomatic anemia Time spent for discharge: 35 minutes Core Measure Documentation - Palliative Care Palliative Care/ Comfort Measures: Not Applicable - Core Measures Any of the following diagnoses?: none Exam - Physical Exam Narrative exam: VITAL SIGNS: Reviewed. GENERAL: The patient appears normally developed, Vital signs as documented. HEAD: No signs of head trauma. EYES: Pupils are equal. Extraocular motions intact. EARS: Hard of hearing MOUTH: Oropharynx is normal. NECK: No adenopathy, no JVD. CHEST: Chest with clear breath sounds bilaterally. No wheezes, rales, or rhonchi. CARDIAC: Regular rate and rhythm. S1 and S2, without murmurs, gallops, or rubs. VASCULAR: No Edema. Peripheral pulses normal and equal in all extremities. ABDOMEN: Soft, non tender and non distended. No rebound or guarding, and no masses palpated. Bowel Sounds normal. MUSCULOSKELETAL: Good range of motion of all major joints. Extremities without clubbing, cyanosis or edema. NEUROLOGIC EXAM: Alert and oriented x 3 No focal sensory or strength deficits. Speech normal. Follows commands. PSYCHIATRIC: Mood normal. SKIN: detail exam as documented in skin assessment - Constitutional Vitals: Temp Pulse Resp BP Pulse Ox 97.9 F 78 16 138/70 100 02/26/21 04:01 02/26/21 10:53 02/26/21 04:01 02/26/21 04:01 02/26/21 10:53 Plan Activity: advance as tolerated, fall precautions Diet: low fat (Clear liquid diet for 2 to 3 days and advance as tolerated) Special Instructions: record daily weights Plan of Treatment: Follow with Dr. Macy Ch, GI clinic Follow up with: PRIMARY MD JEF [Primary Care Provider] - 3-5 Days ARCENIO HOLLEY MD [Staff Physician] - 7 Days Prescriptions: Pantoprazole [Protonix TAB] 40 mg PO QDAY #30 tablet
--- NOTE | 2021-02-26 13:27 | Gastroenterology Progress Note ---
Assessment and Plan 1. Severe microcytic anemia 2. Pancytopenia -recurrent severe anemia in setting of pancytopenia. no overt gi bleeding, appropriate response to blood transfusion. needs to be on iron replacement therapy, recommend hematology consult. had egd/colonoscopy earlier this year without obvious source of anemia seen. recommend outpatient pill cam. noted plans for discharge today per primary. will sign off, please call as needed or with questions. Subjective Date of service: 02/26/21 Principal diagnosis: Chronic blood loss anemia Interval history: pt denies gi complaints. no overt gi bleeding. denies abd pain and requesting to advance diet Objective - Constitutional Vitals: Temp Pulse Resp BP Pulse Ox 97.9 F 78 16 138/70 100 02/26/21 04:01 02/26/21 10:53 02/26/21 04:01 02/26/21 04:01 02/26/21 10:53 General appearance: no acute distress - Respiratory Respiratory effort: normal Respiratory: bilateral: CTA - Cardiovascular Rhythm: regular Heart Sounds: Present: S1 & S2 - Gastrointestinal General gastrointestinal: Present: soft, non-tender, non-distended - Labs CBC & Chem 7: 02/26/21 05:05 02/25/21 09:14 Labs: Laboratory Results - last 24 hr 02/24/21 02/25/21 02/25/21 13:04 12:42 16:53 WBC 3.3 L RBC 2.32 L Hgb 4.9 L* Hct 16.7 L* MCV 72 L MCH 21 L MCHC 29 L RDW 29.2 H Plt Count 41 L Add Manual Diff Complete Total Counted 100 Seg Neuts % (Manual) 74.0 H Band Neutrophils % 1.0 Lymphocytes % (Manual) 19.0 Monocytes % (Manual) 2.0 Eosinophils % (Manual) 3.0 Basophils % (Manual) 1.0 Nucleated RBC % Not Reportable Seg Neutrophils # Man 2.4 Band Neutrophils # 0.0 Lymphocytes # (Manual) 0.6 L Abs React Lymphs (Man) 0.0 Monocytes # (Manual) 0.1 Eosinophils # (Manual) 0.1 Basophils # (Manual) 0.0 Metamyelocytes # 0.0 Myelocytes # 0.0 Promyelocytes # 0.0 Blast Cells # 0.0 WBC Morphology Not Reportable Hypersegmented Neuts Not Reportable Hyposegmented Neuts Not Reportable Hypogranular Neuts Not Reportable Smudge Cells Not Reportable Toxic Granulation Not Reportable Toxic Vacuolation Not Reportable Dohle Bodies Not Reportable Pelger-Huet Anomaly Not Reportable Katia Rods Not Reportable Platelet Estimate Consistent w auto Clumped Platelets Not Reportable Plt Clumps, EDTA Not Reportable Large Platelets Not Reportable Giant Platelets Not Reportable Platelet Satelliting Not Reportable Plt Morphology Comment Not Reportable RBC Morphology Not Reportable Dimorphic RBCs Not Reportable Polychromasia Not Reportable Hypochromasia 2+ Poikilocytosis 1+ Anisocytosis 3+ Microcytosis Not Reportable Macrocytosis Not Reportable Spherocytes Not Reportable Pappenheimer Bodies Not Reportable Sickle Cells Not Reportable Target Cells Not Reportable Tear Drop Cells Few Ovalocytes Few Helmet Cells Not Reportable Suarez-Chamberino Bodies Not Reportable [place] Rings Not Reportable [place] Cells Not Reportable Bite Cells Not Reportable Crenated Cell Not Reportable Elliptocytes Few Acanthocytes (Spur) Not Reportable Rouleaux Not Reportable Hemoglobin C Crystals Not Reportable Schistocytes Not Reportable Malaria parasites Not Reportable Jl Bodies Not Reportable Hem Pathologist Commnt No POC Glucose 162 H JYOTI Antibody Screen Negative Crossmatch See Detail 02/25/21 02/26/21 02/26/21 23:20 05:05 05:15 WBC 2.6 L RBC 3.51 L Hgb 8.7 L D Hct 28.8 L D MCV 82 L MCH 25 L MCHC 30 L RDW 27.6 H Plt Count 44 L Add Manual Diff Total Counted Seg Neuts % (Manual) Band Neutrophils % Lymphocytes % (Manual) Monocytes % (Manual) Eosinophils % (Manual) Basophils % (Manual) Nucleated RBC % Seg Neutrophils # Man Band Neutrophils # Lymphocytes # (Manual) Abs React Lymphs (Man) Monocytes # (Manual) Eosinophils # (Manual) Basophils # (Manual) Metamyelocytes # Myelocytes # Promyelocytes # Blast Cells # WBC Morphology Hypersegmented Neuts Hyposegmented Neuts Hypogranular Neuts Smudge Cells Toxic Granulation Toxic Vacuolation Dohle Bodies Pelger-Huet Anomaly Katia Rods Platelet Estimate Clumped Platelets Plt Clumps, EDTA Large Platelets Giant Platelets Platelet Satelliting Plt Morphology Comment RBC Morphology Dimorphic RBCs Polychromasia Hypochromasia Poikilocytosis Anisocytosis Microcytosis Macrocytosis Spherocytes Pappenheimer Bodies Sickle Cells Target Cells Tear Drop Cells Ovalocytes Helmet Cells Suarez-Chamberino Bodies [place] Rings [place] Cells Bite Cells Crenated Cell Elliptocytes Acanthocytes (Spur) Rouleaux Hemoglobin C Crystals Schistocytes Malaria parasites Jl Bodies Hem Pathologist Commnt POC Glucose 128 H 93 JYOTI Antibody Screen Crossmatch 02/26/21 12:04 WBC RBC Hgb Hct MCV MCH MCHC RDW Plt Count Add Manual Diff Total Counted Seg Neuts % (Manual) Band Neutrophils % Lymphocytes % (Manual) Monocytes % (Manual) Eosinophils % (Manual) Basophils % (Manual) Nucleated RBC % Seg Neutrophils # Man Band Neutrophils # Lymphocytes # (Manual) Abs React Lymphs (Man) Monocytes # (Manual) Eosinophils # (Manual) Basophils # (Manual) Metamyelocytes # Myelocytes # Promyelocytes # Blast Cells # WBC Morphology Hypersegmented Neuts Hyposegmented Neuts Hypogranular Neuts Smudge Cells Toxic Granulation Toxic Vacuolation Dohle Bodies Pelger-Huet Anomaly Katia Rods Platelet Estimate Clumped Platelets Plt Clumps, EDTA Large Platelets Giant Platelets Platelet Satelliting Plt Morphology Comment RBC Morphology Dimorphic RBCs Polychromasia Hypochromasia Poikilocytosis Anisocytosis Microcytosis Macrocytosis Spherocytes Pappenheimer Bodies Sickle Cells Target Cells Tear Drop Cells Ovalocytes Helmet Cells Suarez-Chamberino Bodies [place] Rings Luke Cells Bite Cells Crenated Cell Elliptocytes Acanthocytes (Spur) Rouleaux Hemoglobin C Crystals Schistocytes Malaria parasites Jl Bodies Hem Pathologist Commnt POC Glucose 102 JYOTI Antibody Screen Crossmatch
[2021-02-27] MEDS: INSULIN LISPRO 100 UNIT/ML SUB-Q SCH ×2 (06:18)
[2021-02-27 06:28] LABS: Hematocrit 27.2 % (35.5-45.6); Hemoglobin 8.2 gm/dl (11.8-15.2); Mean Corpuscular HGB Conc 30 % (32-34); Mean Corpuscular Volume 81 fl (84-94); Platelet Count 49 K/mm3 (140-440); Red Blood Count 3.37 M/mm3 (3.65-5.03)
[2021-02-27 08:57] VITALS: BP 138/76
[2021-02-27] MEDS ORDERED: FAMOTIDINE 20 MG TAB PO SCH (10:00)
--- NOTE | 2021-02-27 10:37 | Progress Note ---
Assessment and Plan Assessment and plan: 55-year-old male with past medical history significant for chronic anemia with transfusion dependence and type 2 diabetes comes in for generalized weakness of 1 week duration. Patient has been getting recurrent blood transfusions. No hematemesis melena or gross blood in stool. Patient has severe lightheadedness which precludes him from walking. Patient is supposed to follow-up with [facility]. History of AVMs. Extensive work-up was done. As per GI note of 12/2020--no GI pathology to explain her anemia. PillCam was recommended for small bowel evaluation as outpatient. 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 Follow with GI and surgical product sales consultant as recommended outpatient. 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 Will transfuse and if hemoglobin is more than 8 and 24 will discharge the patie nt Hemoglobin is 4.9 and hematocrit is 16.7 2 transfuse 2 to 3 units of packed red blood cells and recheck CBC If hemoglobin is more than 8 patient to be discharged Patient has extensive AV malformations Follow-up with GI and hematology Follow-up with hematology for iron transfusions (2) Pancytopenia Current Visit: Yes Status: Acute Plan to address problem: Etiology unclear Possible bone marrow suppression Heme-onc consult (3) IDDM (insulin dependent diabetes mellitus) Current Visit: Yes Status: Chronic Plan to address problem: Insulin coverage for now Check hemoglobin A1c. (4) DVT prophylaxis Current Visit: No Status: Acute Plan to address problem: On SCDs and GI prophylaxis (5) Advance care planning Current Visit: No Status: Acute Plan to address problem: Disease education conducted, care plan discussed, diagnosis discussed and patient acknowledges understanding with care plan. +30 minutes 02/27: Patient remains clinically stable hemoglobin stable discharge not completed yesterday secondary to transportation issue no change in discharge plan he will be discharged today. History Interval history: Patient seen and examined tolerating diet. Hemoglobin remained stable Hospitalist Physical - Physical exam Narrative exam: VITAL SIGNS: Reviewed. GENERAL: The patient appears normally developed, Vital signs as documented. HEAD: No signs of head trauma. EYES: Pupils are equal. Extraocular motions intact. EARS: Hard of hearing MOUTH: Oropharynx is normal. NECK: No adenopathy, no JVD. CHEST: Chest with clear breath sounds bilaterally. No wheezes, rales, or rhonchi. CARDIAC: Regular rate and rhythm. S1 and S2, without murmurs, gallops, or rubs. VASCULAR: No Edema. Peripheral pulses normal and equal in all extremities. ABDOMEN: Soft, non tender and non distended. No rebound or guarding, and no masses palpated. Bowel Sounds normal. MUSCULOSKELETAL: Good range of motion of all major joints. Extremities without clubbing, cyanosis or edema. NEUROLOGIC EXAM: Alert and oriented x 3 No focal sensory or strength deficits. Speech normal. Follows commands. PSYCHIATRIC: Mood normal. SKIN: detail exam as documented in skin assessment - Constitutional Vitals: Temp Pulse Resp BP Pulse Ox 98.0 F 73 16 138/76 100 02/27/21 07:37 02/27/21 07:37 02/27/21 07:37 02/27/21 07:37 02/27/21 07:37 General appearance: Present: no acute distress, well-nourished Results - Labs CBC & Chem 7: 02/27/21 05:57 02/25/21 09:14 Labs: Laboratory Last Values WBC 3.4 K/mm3 (4.5-11.0) L 02/27/21 05:57 RBC 3.37 M/mm3 (3.65-5.03) L 02/27/21 05:57 Hgb 8.2 gm/dl (11.8-15.2) L 02/27/21 05:57 Hct 27.2 % (35.5-45.6) L 02/27/21 05:57 MCV 81 fl (84-94) L 02/27/21 05:57 MCH 25 pg (28-32) L 02/27/21 05:57 MCHC 30 % (32-34) L 02/27/21 05:57 RDW 28.0 % (13.2-15.2) H 02/27/21 05:57 Plt Count 49 K/mm3 (140-440) L 02/27/21 05:57 Add Manual Diff Complete 02/25/21 12:42 Total Counted 100 02/25/21 12:42 Seg Neuts % (Manual) 74.0 % (40.0-70.0) H 02/25/21 12:42 Band Neutrophils % 1.0 % 02/25/21 12:42 Lymphocytes % (Manual) 19.0 % (13.4-35.0) 02/25/21 12:42 Monocytes % (Manual) 2.0 % (0.0-7.3) 02/25/21 12:42 Eosinophils % (Manual) 3.0 % (0.0-4.3) 02/25/21 12:42 Basophils % (Manual) 1.0 % (0.0-1.8) 02/25/21 12:42 Metamyelocytes % 1.0 % 02/24/21 13:54 Nucleated RBC % Not Reportable 02/25/21 12:42 Seg Neutrophils # Man 2.4 K/mm3 (1.8-7.7) 02/25/21 12:42 Band Neutrophils # 0.0 K/mm3 02/25/21 12:42 Lymphocytes # (Manual) 0.6 K/mm3 (1.2-5.4) L 02/25/21 12:42 Abs React Lymphs (Man) 0.0 K/mm3 02/25/21 12:42 Monocytes # (Manual) 0.1 K/mm3 (0.0-0.8) 02/25/21 12:42 Eosinophils # (Manual) 0.1 K/mm3 (0.0-0.4) 02/25/21 12:42 Basophils # (Manual) 0.0 K/mm3 (0.0-0.1) 02/25/21 12:42 Metamyelocytes # 0.0 K/mm3 02/25/21 12:42 Myelocytes # 0.0 K/mm3 02/25/21 12:42 Promyelocytes # 0.0 K/mm3 02/25/21 12:42 Blast Cells # 0.0 K/mm3 02/25/21 12:42 WBC Morphology Not Reportable 02/25/21 12:42 Hypersegmented Neuts Not Reportable 02/25/21 12:42 Hyposegmented Neuts Not Reportable 02/25/21 12:42 Hypogranular Neuts Not Reportable 02/25/21 12:42 Smudge Cells Not Reportable 02/25/21 12:42 Toxic Granulation Not Reportable 02/25/21 12:42 Toxic Vacuolation Not Reportable 02/25/21 12:42 Dohle Bodies Not Reportable 02/25/21 12:42 Pelger-Huet Anomaly Not Reportable 02/25/21 12:42 Katia Rods Not Reportable 02/25/21 12:42 Platelet Estimate Consistent w auto 02/25/21 12:42 Clumped Platelets Not Reportable 02/25/21 12:42 Plt Clumps, EDTA Not Reportable 02/25/21 12:42 Large Platelets Not Reportable 02/25/21 12:42 Giant Platelets Not Reportable 02/25/21 12:42 Platelet Satelliting Not Reportable 02/25/21 12:42 Plt Morphology Comment Not Reportable 02/25/21 12:42 RBC Morphology Not Reportable 02/25/21 12:42 Dimorphic RBCs Not Reportable 02/25/21 12:42 Polychromasia Not Reportable 02/25/21 12:42 Hypochromasia 2+ 02/25/21 12:42 Poikilocytosis 1+ 02/25/21 12:42 Anisocytosis 3+ 02/25/21 12:42 Microcytosis Not Reportable 02/25/21 12:42 Macrocytosis Not Reportable 02/25/21 12:42 Spherocytes Not Reportable 02/25/21 12:42 Pappenheimer Bodies Not Reportable 02/25/21 12:42 Sickle Cells Not Reportable 02/25/21 12:42 Target Cells Not Reportable 02/25/21 12:42 Tear Drop Cells Few 02/25/21 12:42 Ovalocytes Few 02/25/21 12:42 Helmet Cells Not Reportable 02/25/21 12:42 Suarez-Chamisal Bodies Not Reportable 02/25/21 12:42 [place] Rings Not Reportable 02/25/21 12:42 Erick Cells Not Reportable 02/25/21 12:42 Bite Cells Not Reportable 02/25/21 12:42 Crenated Cell Not Reportable 02/25/21 12:42 Elliptocytes Few 02/25/21 12:42 Acanthocytes (Spur) Not Reportable 02/25/21 12:42 Rouleaux Not Reportable 02/25/21 12:42 Hemoglobin C Crystals Not Reportable 02/25/21 12:42 Schistocytes Not Reportable 02/25/21 12:42 Malaria parasites Not Reportable 02/25/21 12:42 Jl Bodies Not Reportable 02/25/21 12:42 Hem Pathologist Commnt No 02/25/21 12:42 PT 15.4 Sec. (12.2-14.9) H 02/24/21 13:04 INR 1.10 (0.87-1.13) 02/24/21 13:04 APTT 33.8 Sec. (24.2-36.6) 02/24/21 13:04 Sodium 139 mmol/L (137-145) 02/25/21 09:14 Potassium 3.9 mmol/L (3.6-5.0) 02/25/21 09:14 Chloride 107.9 mmol/L (98-107) H 02/25/21 09:14 Carbon Dioxide 19 mmol/L (22-30) L 02/25/21 09:14 Anion Gap 16 mmol/L 02/25/21 09:14 BUN 12 mg/dL (9-20) 02/25/21 09:14 Creatinine 0.5 mg/dL (0.8-1.3) L 02/25/21 09:14 Estimated GFR > 60 ml/min 02/25/21 09:14 BUN/Creatinine Ratio 24 % 02/25/21 09:14 Glucose 163 mg/dL (75-100) H 02/25/21 09:14 POC Glucose 141 mg/dL (70-105) H 02/27/21 05:19 Calcium 8.1 mg/dL (8.4-10.2) L 02/25/21 09:14 Total Bilirubin 1.60 mg/dL (0.1-1.2) H 02/25/21 09:14 AST 12 units/L (5-40) 02/25/21 09:14 ALT 7 units/L (7-56) 02/25/21 09:14 Alkaline Phosphatase 67 units/L (35-129) 02/25/21 09:14 Total Protein 5.5 g/dL (6.3-8.2) L 02/25/21 09:14 Albumin 3.6 g/dL (3.9-5) L 02/25/21 09:14 Albumin/Globulin Ratio 1.9 % 02/25/21 09:14 Urine Color Yellow (Yellow) 02/24/21 Unknown Urine Turbidity Clear (Clear) 02/24/21 Unknown Urine pH 5.0 (5.0-7.0) 02/24/21 Unknown Ur Specific [place] 1.012 (1.003-1.030) 02/24/21 Unknown Urine Protein <15 mg/dl mg/dL (Negative) 02/24/21 Unknown Urine Glucose (UA) Neg mg/dL (Negative) 02/24/21 Unknown Urine Ketones Neg mg/dL (Negative) 02/24/21 Unknown Urine Blood Neg (Negative) 02/24/21 Unknown Urine Nitrite Neg (Negative) 02/24/21 Unknown Urine Bilirubin Neg (Negative) 02/24/21 Unknown Urine Urobilinogen 4.0 mg/dL (<2.0) 02/24/21 Unknown Ur Leukocyte Esterase Neg (Negative) 02/24/21 Unknown Urine WBC (Auto) 1.0 /HPF (0.0-6.0) 02/24/21 Unknown Urine RBC (Auto) 1.0 /HPF (0.0-6.0) 02/24/21 Unknown Blood Type A POSITIVE 02/24/21 12:27 Antibody Screen Positive 02/24/21 12:27 JYOTI Antibody Screen Negative 02/24/21 13:04 Antibody Identification Non-specific Antibody 02/24/21 12:27 Crossmatch See Detail 02/24/21 13:04 Parker/IV: Voiding Method Urinal Active Medications - Current Medications Current Medications: Generic Name Dose Route Start Last Admin Trade Name Freq PRN Reason Stop Dose Admin Acetaminophen 650 mg 02/24/21 22:29 02/25/21 22:32 Acetaminophen 325 Mg Tab PO 650 mg Q4H PRN Administration Pain MILD(1-3)/Fever >100.5/DURÁN Famotidine 20 mg 02/27/21 10:00 Famotidine 20 Mg Tab PO BID LUCIAN Hydromorphone HCl 0.5 mg 02/24/21 22:29 02/25/21 01:15 Hydromorphone 1 Mg/1 Ml Inj IV 0.5 mg Q3H PRN Administration Pain , Severe (7-10) Sodium Chloride 1,000 mls @ 42 mls/hr 02/24/21 22:30 Nacl 0.9% 1000 Ml IV DIRECT [facility] Insulin Human Lispro 0 unit 02/25/21 08:00 02/27/21 06:18 Insulin Lispro 100 Unit/Ml SUB-Q Not Given Q6HR [facility] Protocol Metoclopramide HCl 10 mg 02/24/21 22:29 Metoclopramide 10 Mg/2 Ml Inj IV Q6H PRN Nausea And Vomiting Morphine Sulfate 2 mg 02/24/21 22:29 Morphine 2 Mg/1 Ml Inj IV Q4H PRN Pain, Moderate (4-6) Ondansetron HCl 4 mg 02/24/21 22:29 Ondansetron 4 Mg/2 Ml Inj IV Q8H PRN Nausea And Vomiting Sodium Chloride 10 ml 02/25/21 10:00 02/26/21 22:02 Sodium Chloride 0.9% 10 Ml Flush Syringe IV Not Given BID [facility] Sodium Chloride 10 ml 02/24/21 22:29 Sodium Chloride 0.9% 10 Ml Flush Syringe IV PRN PRN LINE FLUSH
--- NOTE | 2021-02-28 10:35 | Electrocardiograph Report ---
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 Electronically Signed On 02-28-2021 10:35:08 EST by Victor M Grimm
== END 2021-02-27 13:45 | disposition home or self-care (01) | DRG 810 ==
LOC: ED 11:39 → 4A 14:50 → INTOOBSV 14:50 → 3A 02-25 00:06 → 4A 02-25 03:51 → OBSVTOIN 02-27 10:44
PROVIDERS: ADMIT Internal Medicine; ATTEND Internal Medicine
PROC: 30233N1 Transfusion of Nonautologous Red Blood Cells into Peripheral Vein, Percutaneous Approach (ICD-10-PCS; principal; 2021-02-24)
DX: D61.818 Other pancytopenia (principal); D64.9 Anemia, unspecified; E11.9 Type 2 diabetes mellitus without complications; K21.9 Gastro-esophageal reflux disease without esophagitis; M19.90 Unspecified osteoarthritis, unspecified site; F17.200 Nicotine dependence, unspecified, uncomplicated; B19.20 Unspecified viral hepatitis C without hepatic coma; Z79.4 Long term (current) use of insulin; Z83.3 Family history of diabetes mellitus
CPT/HCPCS: 36415; 80053; 81001; 82271; 82962; 85007; 85025; 85027; 85610; 85730; 86850; 86870; 86900; 86901; 86922; 93005; 99285; G0378; J3490; Q0162; Q9967; J1170; J1815; J7030; J7040; P9016

== ENCOUNTER 2021-04-09 11:52 | Inpatient (IN) | payer SELFPAY ==
--- NOTE | 2021-04-09 14:07 | Emergency Department Report ---
ED N/V/D HPI - General Chief complaint: Nausea/Vomiting/Diarrhea Stated complaint: DIARRHEA Time Seen by Provider: 04/09/21 12:58 Source: EMS, old records reviewed Mode of arrival: Stretcher Limitations: No Limitations - History of Present Illness Initial comments: 65-year-old male with a past medical history of diabetes presents to the hospital complaining of diarrhea x2 days. As per medical record patient also has a history significant for chronic anemia transfusion dependence and pancytopenia. He was last here in February with a hemoglobin of 4.9 and received multiple units of blood. Apparently patient has a history of extensive AVM applications in the colon and was encouraged to get a PillCam as an outpatient. Patient is not sure if he has had a fever. He denies pain or previous abdominal surgeries. He ran out of his diabetes medications 1 month ago. Patient currently [place] and was found soiled in feces. Patient is alert and oriented x3. He states he is vaccinated for COVID - Related Data Previous Rx's Medication Instructions Recorded Last Taken Type Insulin Regular, Human [HumuLIN R] 0 unit SQ AC #1 vial 08/20/20 2 Weeks Ago Rx ~02/11/21 Pantoprazole [Protonix TAB] 40 mg PO QDAY #30 tablet 02/26/21 Unknown Rx Allergies Allergy/AdvReac Type Severity Reaction Status Date / Time No Known Allergies Allergy Verified 08/27/17 07:25 ED Review of Systems ROS: Stated complaint: DIARRHEA Other details as noted in HPI Comment: All other systems reviewed and negative ED Past Medical Hx - Past Medical History Hx Hypertension: No Hx Heart Attack/AMI: No Hx Congestive Heart Failure: No Hx Diabetes: Yes Hx Deep Vein Thrombosis: No Hx GERD: Yes Hx Liver Disease: No Hx Renal Disease: No Hx Sickle Cell Disease: No Hx Arthritis: Yes Hx Seizures: No Hx Asthma: No Hx COPD: No Hx Dementia: No Hx HIV: No Additional medical history: ANEMIA. Proximal gut and multiple colon AVM's (endoscopy/colonoscopy March 2017). hep C. Pancytopenia. Recurrent anemia requiring blood transfusion. ITP - Surgical History Hx Coronary Stent: No Hx Pacemaker: No Hx Internal Defibrillator: No - Social History Smoking Status: Former Smoker Substance Use Type: Alcohol, Cocaine, Marijuana - Medications Home Medications: Home Medications Medication Instructions Recorded Confirmed Last Taken Type Insulin Regular, Human [HumuLIN R] 0 unit SQ AC #1 vial 08/20/20 02/25/21 2 Weeks Ago Rx ~02/11/21 Pantoprazole [Protonix TAB] 40 mg PO QDAY #30 tablet 02/26/21 Unknown Rx ED Physical Exam - General Limitations: No Limitations - Other Other exam information: General: No acute distress Head: Atraumatic Eyes: normal appearance ENT: Moist mucous membranes Neck: Normal appearance, no midline tenderness Chest: Clear to auscultation bilaterally CV: Regular rate and rhythm Abdomen: Soft, normal bowel sounds, nontender, nondistended, no rebound or guarding Back: Normal inspection Extremity: Normal inspection, full range of motion Neuro: Alert O x 3, no facial asymmetry, speech clear, no gross motor sensory deficit Psych: Appropriate behavior Skin: No rash ED Course Vital Signs 04/09/21 04/09/21 04/09/21 12:30 13:16 14:00 Temperature Pulse Rate 101 H 101 H 101 H Respiratory 22 21 30 H Rate Respiratory Rate [Bilateral ] Blood Pressure 104/14 104/38 104/38 O2 Sat by Pulse Oximetry 04/09/21 04/09/21 04/09/21 15:00 16:00 16:35 Temperature Pulse Rate 100 H 97 H Respiratory 18 20 Rate Respiratory 16 Rate [Bilateral ] Blood Pressure 113/50 105/50 O2 Sat by Pulse 97 Oximetry 04/09/21 04/09/21 04/09/21 17:02 17:55 18:00 Temperature 98.0 F Pulse Rate 98 H 115 H Respiratory 23 21 Rate Respiratory Rate [Bilateral ] Blood Pressure 105/50 109/59 O2 Sat by Pulse Oximetry - Consultations Consultation #1: 04/09/21 17:[address] Michael Sawant with GI recommends Levcary and Flagyl. Will consult ED Medical Decision Making - Lab Data Result diagrams: 04/09/21 14:45 04/09/21 15:20 Lab Results 04/09/21 04/09/21 04/09/21 Range/Units 13:19 13:49 14:45 WBC 8.3 (4.5-11.0) K/mm3 RBC 1.40 L (3.65-5.03) M/mm3 Hgb 2.5 L* (11.8-15.2) gm/dl Hct 9.6 L* (35.5-45.6) % MCV 69 L (84-94) fl MCH 18 L (28-32) pg MCHC 26 L (32-34) % RDW 20.2 H (13.2-15.2) % Plt Count 506 H (140-440) K/mm3 Lymph % (Auto) 5.1 L (13.4-35.0) % [place] % (Auto) 11.6 H (0.0-7.3) % Eos % (Auto) 0.0 (0.0-4.3) % Baso % (Auto) 0.5 (0.0-1.8) % Lymph # (Auto) 0.4 L (1.2-5.4) K/mm3 [place] # (Auto) 1.0 H (0.0-0.8) K/mm3 Eos # (Auto) 0.0 (0.0-0.4) K/mm3 Baso # (Auto) 0.0 (0.0-0.1) K/mm3 Seg Neutrophils % 82.8 H (40.0-70.0) % Seg Neutrophils # 6.8 (1.8-7.7) K/mm3 PT (12.2-14.9) Sec. INR (0.87-1.13) APTT (24.2-36.6) Sec. Sodium 138 (137-145) mmol/L Potassium 5.9 H (3.6-5.0) mmol/L Chloride 95.8 L (98-107) mmol/L Carbon Dioxide 11 L (22-30) mmol/L Anion Gap 37 mmol/L BUN 33 H (9-20) mg/dL Creatinine 1.4 H (0.8-1.3) mg/dL Estimated GFR > 60 ml/min BUN/Creatinine Ratio 24 % Glucose 98 (75-100) mg/dL POC Glucose 85 (70-105) mg/dL Lactic Acid (0.7-2.0) mmol/L Calcium 9.1 (8.4-10.2) mg/dL Magnesium 2.40 H (1.7-2.3) mg/dL Total Bilirubin 2.60 H (0.1-1.2) mg/dL AST 953 H (5-40) units/L ALT 401 H (7-56) units/L Alkaline Phosphatase 105 (35-129) units/L Ammonia (25-60) umol/L Total Protein 7.0 (6.3-8.2) g/dL Albumin 4.2 (3.9-5) g/dL Albumin/Globulin Ratio 1.5 % Lipase (13-60) units/L Acetaminophen (10.0-30.0) ug/mL Plasma/Serum Alcohol (0-0.07) % Blood Type Antibody Screen JYOTI Antibody Screen Crossmatch 04/09/21 04/09/21 04/09/21 Range/Units 15:16 15:16 15:16 WBC (4.5-11.0) K/mm3 RBC (3.65-5.03) M/mm3 Hgb (11.8-15.2) gm/dl Hct (35.5-45.6) % MCV (84-94) fl MCH (28-32) pg MCHC (32-34) % RDW (13.2-15.2) % Plt Count (140-440) K/mm3 Lymph % (Auto) (13.4-35.0) % [place] % (Auto) (0.0-7.3) % Eos % (Auto) (0.0-4.3) % Baso % (Auto) (0.0-1.8) % Lymph # (Auto) (1.2-5.4) K/mm3 [place] # (Auto) (0.0-0.8) K/mm3 Eos # (Auto) (0.0-0.4) K/mm3 Baso # (Auto) (0.0-0.1) K/mm3 Seg Neutrophils % (40.0-70.0) % Seg Neutrophils # (1.8-7.7) K/mm3 PT 25.0 H (12.2-14.9) Sec. INR 2.06 H (0.87-1.13) APTT 38.9 H (24.2-36.6) Sec. Sodium (137-145) mmol/L Potassium (3.6-5.0) mmol/L Chloride (98-107) mmol/L Carbon Dioxide (22-30) mmol/L Anion Gap mmol/L BUN (9-20) mg/dL Creatinine (0.8-1.3) mg/dL Estimated GFR ml/min BUN/Creatinine Ratio % Glucose (75-100) mg/dL POC Glucose (70-105) mg/dL Lactic Acid 15.40 H* (0.7-2.0) mmol/L Calcium (8.4-10.2) mg/dL Magnesium (1.7-2.3) mg/dL Total Bilirubin (0.1-1.2) mg/dL AST (5-40) units/L ALT (7-56) units/L Alkaline Phosphatase (35-129) units/L Ammonia (25-60) umol/L Total Protein (6.3-8.2) g/dL Albumin (3.9-5) g/dL Albumin/Globulin Ratio % Lipase (13-60) units/L Acetaminophen (10.0-30.0) ug/mL Plasma/Serum Alcohol (0-0.07) % Blood Type A POSITIVE Antibody Screen TNR JYOTI Antibody Screen Negative Crossmatch See Detail 04/09/21 04/09/21 04/09/21 Range/Units 15:16 15:16 15:16 WBC (4.5-11.0) K/mm3 RBC (3.65-5.03) M/mm3 Hgb (11.8-15.2) gm/dl Hct (35.5-45.6) % MCV (84-94) fl MCH (28-32) pg MCHC (32-34) % RDW (13.2-15.2) % Plt Count (140-440) K/mm3 Lymph % (Auto) (13.4-35.0) % [place] % (Auto) (0.0-7.3) % Eos % (Auto) (0.0-4.3) % Baso % (Auto) (0.0-1.8) % Lymph # (Auto) (1.2-5.4) K/mm3 [place] # (Auto) (0.0-0.8) K/mm3 Eos # (Auto) (0.0-0.4) K/mm3 Baso # (Auto) (0.0-0.1) K/mm3 Seg Neutrophils % (40.0-70.0) % Seg Neutrophils # (1.8-7.7) K/mm3 PT (12.2-14.9) Sec. INR (0.87-1.13) APTT (24.2-36.6) Sec. Sodium (137-145) mmol/L Potassium (3.6-5.0) mmol/L Chloride (98-107) mmol/L Carbon Dioxide (22-30) mmol/L Anion Gap mmol/L BUN (9-20) mg/dL Creatinine (0.8-1.3) mg/dL Estimated GFR ml/min BUN/Creatinine Ratio % Glucose (75-100) mg/dL POC Glucose (70-105) mg/dL Lactic Acid (0.7-2.0) mmol/L Calcium (8.4-10.2) mg/dL Magnesium (1.7-2.3) mg/dL Total Bilirubin (0.1-1.2) mg/dL AST (5-40) units/L ALT (7-56) units/L Alkaline Phosphatase (35-129) units/L Ammonia 68.0 H (25-60) umol/L Total Protein (6.3-8.2) g/dL Albumin (3.9-5) g/dL Albumin/Globulin Ratio % Lipase (13-60) units/L Acetaminophen 5.0 L (10.0-30.0) ug/mL Plasma/Serum Alcohol < 0.01 (0-0.07) % Blood Type Antibody Screen JYOTI Antibody Screen Crossmatch 04/09/21 04/09/21 Range/Units 15:16 15:20 WBC (4.5-11.0) K/mm3 RBC (3.65-5.03) M/mm3 Hgb (11.8-15.2) gm/dl Hct (35.5-45.6) % MCV (84-94) fl MCH (28-32) pg MCHC (32-34) % RDW (13.2-15.2) % Plt Count (140-440) K/mm3 Lymph % (Auto) (13.4-35.0) % [place] % (Auto) (0.0-7.3) % Eos % (Auto) (0.0-4.3) % Baso % (Auto) (0.0-1.8) % Lymph # (Auto) (1.2-5.4) K/mm3 [place] # (Auto) (0.0-0.8) K/mm3 Eos # (Auto) (0.0-0.4) K/mm3 Baso # (Auto) (0.0-0.1) K/mm3 Seg Neutrophils % (40.0-70.0) % Seg Neutrophils # (1.8-7.7) K/mm3 PT (12.2-14.9) Sec. INR (0.87-1.13) APTT (24.2-36.6) Sec. Sodium 139 (137-145) mmol/L Potassium 5.5 H (3.6-5.0) mmol/L Chloride 97.8 L (98-107) mmol/L Carbon Dioxide 11 L (22-30) mmol/L Anion Gap 36 mmol/L BUN 34 H (9-20) mg/dL Creatinine 1.3 (0.8-1.3) mg/dL Estimated GFR > 60 ml/min BUN/Creatinine Ratio 26 % Glucose 113 H (75-100) mg/dL POC Glucose (70-105) mg/dL Lactic Acid (0.7-2.0) mmol/L Calcium 9.1 (8.4-10.2) mg/dL Magnesium (1.7-2.3) mg/dL Total Bilirubin 2.30 H (0.1-1.2) mg/dL AST 854 H (5-40) units/L ALT 383 H (7-56) units/L Alkaline Phosphatase 91 (35-129) units/L Ammonia (25-60) umol/L Total Protein 6.2 L (6.3-8.2) g/dL Albumin 3.9 (3.9-5) g/dL Albumin/Globulin Ratio 1.7 % Lipase 8 L (13-60) units/L Acetaminophen (10.0-30.0) ug/mL Plasma/Serum Alcohol (0-0.07) % Blood Type Antibody Screen JYOTI Antibody Screen Crossmatch - EKG Data -: EKG Interpreted by Me EKG shows normal: sinus rhythm, intervals (QTC 484), QRS complexes (Normal QRS duration 80), ST-T waves (Lateral T wave inversion. No STEMI) Rate: normal (99) - EKG Data When compared to previous EKG there are: changes noted - Radiology Data Radiology results: report reviewed CT abdomen pelvis w con INDICATION / CLINICAL INFORMATION: diarhea, anemia, lft elevation, hx of avm 100 ML [id number]. TECHNIQUE: Axial CT images were obtained through the abdomen and pelvis after 100 cc of Omnipaque [address] scans at this location are performed using CT dose reduction for ALARA by means of automated exposure control. COMPARISON: CT dated 12/16/2018. FINDINGS: LOWER CHEST: Trace right pleural effusion and bibasilar volume loss. Heart is enlarged without pericardial effusion. LIVER: No significant abnormality GALLBLADDER/BILIARY TREE: Multiple gallstones are present throughout the gallbladder. No evidence of cholecystitis. No biliary dilatation. PANCREAS: No significant abnormality SPLEEN: No significant abnormality ADRENALS: No significant abnormality KIDNEYS / URETER: Small bilateral renal cysts and additional too small to characterize renal hypodensities are present. Punctate bilateral nonobstructive nephrolithiasis. No ureteral stone or hydronephrosis. URINARY BLADDER: No significant abnormality REPRODUCTIVE ORGANS: No significant abnormality STOMACH / BOWEL: Small bowel is normal in caliber. There is mild wall thickening and pericolonic inflammatory stranding of the ascending colon. The appendix is normal in caliber. LYMPH NODES: No significant adenopathy. VASCULATURE: Moderate atherosclerotic calcification without acute abnormality. OTHER: Trace perihepatic ascites, nonspecific. No free air. No organized collection. SKELETAL SYSTEM: Moderately severe multilevel degenerative this disease. No acute osseous findings. IMPRESSION: 1. Mild wall thickening and pericolonic inflammatory stranding of the ascending colon, most consistent with infectious or inflammatory colitis. 2. Trace perihepatic ascites, which is nonspecific. The liver appears unremarkable by CT. 3. Cholelithiasis without evidence of cholecystitis. No biliary dilatation. 4. Other chronic and incidental findings as above. - Medical Decision Making 65-year-old male presents to the hospital with persistent diarrhea. Vital signs stable, patient has severe anemia And CT findings of colitis ordered. Elevated lactic acid could be secondary to tissue ischemia from severe anemia. Patient does not have abdominal pain or leukocytosis. 2 units of PRBC noted which could be secondary to tissue ischemia from severe anemia. Patient does not endorse pain. Case discussed with GI shuttle preparation supervisor. Antibiotics ordered. Patient also has no LFT elevation with new onset coagulopathy. hospitalist to admit Troponin ordered based on acute EKG findings compared to previous Temperature requested Critical Care Time: No Critical care attestation.: If time is entered above; I have spent that time in minutes in the direct care of this critically ill patient, excluding procedure time. ED Disposition Clinical Impression: Symptomatic anemia, Colitis, Elevated lactic acid level, Elevated LFTs, Hyperka lemia, Coagulopathy Disposition: 09 ADMITTED INPATIENT Is pt being admited?: Yes Condition: Stable Referrals: PRIMARY CARE, [Primary Care Provider] - 3-5 Days Time of Disposition: 17:33 (DR Ambriz/hospitalist)
[2021-04-09 14:44] LABS: Alanine Aminotransferase 401 units/L (7-56); Albumin 4.2 g/dL (3.9-5); BUN/Creatinine Ratio 24; Blood Urea Nitrogen 33 mg/dL (9-20); Calcium 9.1 mg/dL (8.4-10.2); Hemolysis Index 1
[2021-04-09 14:55] LABS: Hematocrit 9.6 % (35.5-45.6); Hemoglobin 2.5 gm/dl (11.8-15.2); Mean Corpuscular HGB Conc 26 % (32-34); Mean Corpuscular Volume 69 fl (84-94); Platelet Count 506 K/mm3 (140-440); Red Cell Distribution Width 20.2 % (13.2-15.2)
[2021-04-09] MEDS ORDERED: ALBUTEROL 2.5 MG/3 ML NEBU IH ONE (14:55)
[2021-04-09 14:56] LABS: Basophils % (Auto) 0.5 % (0.0-1.8); Lymphocytes # (Auto) 0.4 K/mm3 (1.2-5.4); Lymphocytes % (Auto) 5.1 % (13.4-35.0); Monocytes % (Auto) 11.6 % (0.0-7.3)
[2021-04-09] MEDS ORDERED: SODIUM CHLORIDE 0.9% 1000 ML 1,000 ML IV ONE (14:57)
[2021-04-09] MEDS ORDERED: SODIUM BICARB 8.4% 50 MEQ/50 ML SYRINGE IV ONE ×2 (14:57→18:01)
[2021-04-09] MEDS ORDERED: SODIUM CHLORIDE 0.9% 500 ML 500 ML IV ONE (15:04)
[2021-04-09 15:56] LABS: INR 2.06 (0.87-1.13)
[2021-04-09 15:57] LABS: Partial Thromboplastin Time 38.9 Sec. (24.2-36.6)
[2021-04-09 16:34] LABS: Alanine Aminotransferase 383 units/L (7-56); Albumin 3.9 g/dL (3.9-5); BUN/Creatinine Ratio 26; Blood Urea Nitrogen 34 mg/dL (9-20); Calcium 9.1 mg/dL (8.4-10.2); Hemolysis Index 18
--- NOTE | 2021-04-09 16:48 | Cat Scan Report ---
CT abdomen pelvis w con INDICATION / CLINICAL INFORMATION: diarhea, anemia, lft elevation, hx of avm 100 ML [id number]. TECHNIQUE: Axial CT images were obtained through the abdomen and pelvis after 100 cc of Omnipaque [address] scans at this location are performed using CT dose reduction for ALARA by means of automated exposure control. COMPARISON: CT dated 12/16/2018. FINDINGS: LOWER CHEST: Trace right pleural effusion and bibasilar volume loss. Heart is enlarged without perica rdial effusion. LIVER: No significant abnormality GALLBLADDER/BILIARY TREE: Multiple gallstones are present throughout the gallbladder. No evidence of cholecystitis. No biliary dilatation. PANCREAS: No significant abnormality SPLEEN: No significant abnormality ADRENALS: No significant abnormality KIDNEYS / URETER: Small bilateral renal cysts and additional too small to characterize renal hypodens ities are present. Punctate bilateral nonobstructive nephrolithiasis. No ureteral stone or hydronephr osis. URINARY BLADDER: No significant abnormality REPRODUCTIVE ORGANS: No significant abnormality STOMACH / BOWEL: Small bowel is normal in caliber. There is mild wall thickening and pericolonic infl ammatory stranding of the ascending colon. The appendix is normal in caliber. LYMPH NODES: No significant adenopathy. VASCULATURE: Moderate atherosclerotic calcification without acute abnormality. OTHER: Trace perihepatic ascites, nonspecific. No free air. No organized collection. SKELETAL SYSTEM: Moderately severe multilevel degenerative this disease. No acute osseous findings. IMPRESSION: 1. Mild wall thickening and pericolonic inflammatory stranding of the ascending colon, most consisten t with infectious or inflammatory colitis. 2. Trace perihepatic ascites, which is nonspecific. The liver appears unremarkable by CT. 3. Cholelithiasis without evidence of cholecystitis. No biliary dilatation. 4. Other chronic and incidental findings as above. Signer Name: Gerardo Thomson MD Signed: 04/09/2021 4:43 PM Workstation Name: [id number]
[2021-04-09] MEDS ORDERED: metroNIDAZOLE/NS 500 MG/100 ML 500 MG/100 ML BAG IV ONE (17:23)
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
[2021-04-09] MEDS ORDERED: HYDROmorphone 1 MG/1 ML INJ IV PRN (17:53)
[2021-04-09] MEDS ORDERED: IBUPROFEN 600 MG TAB PO PRN (17:53)
[2021-04-09] MEDS ORDERED: ONDANSETRON 4 MG/2 ML INJ IV PRN (17:53)
[2021-04-09] MEDS ORDERED: MORPHINE 2 MG/1 ML INJ IV PRN (17:53)
[2021-04-09] MEDS ORDERED: ALBUTEROL 2.5 MG/3 ML NEBU IH PRN (17:53)
[2021-04-09] MEDS ORDERED: SODIUM CHLORIDE 0.9% 500 ML 500 ML IV SCH (17:58)
[2021-04-09] MEDS ORDERED: SODIUM CHLORIDE 0.9% 1000 ML IV SOLN IV ONE (19:15)
[2021-04-09 19:55] LABS: Chol/HDL Ratio 1.75 %
[2021-04-09 20:45] LABS: Bilirubin,Urine NEG (Negative); Blood,Urine MOD (Negative); Color,Urine Yellow (Yellow); Protein,Urine <15 mg/dL mg/dL (Negative)
[2021-04-09] MEDS: FERROUS SULFATE 325 MG TAB PO SCH (21:07)
[2021-04-09 21:22] LABS: RBC,Urine < 1.0 /HPF (0.0-6.0); WBC,Urine < 1.0 /HPF (0.0-6.0)
[2021-04-09] MEDS: SODIUM CHLORIDE 0.9% 1000 ML 1,000 ML IV SCH (22:50)
[2021-04-09] MEDS: PANTOPRAZOLE 40 MG INJ IV SCH (22:51)
[2021-04-10] MEDS ORDERED: metroNIDAZOLE/NS 500 MG/100 ML 500 MG/100 ML BAG IV ONE (01:00)
--- NOTE | 2021-04-10 07:40 | Gastroenterology Consultation ---
History of Present Illness - Reason for Consult Consult date: 04/10/21 Anemia Requesting physician: JOEY CHERRY - History of Present Illness Patient last seen by our service a month and a half ago. Outpatient [facility] was recommended The patient is a 65 yo with h/o chronic anemia/pancytopenia who presents with generalized weakness/symptomatic anemia He has had egd/colonoscopy in 2018 with ablation of multiple avm's. pt denies any overt gi bleeding, abd pain, bowel habit changes, weight loss etc. Previously felt to have possibly autoimmune hemolytic anemia and has had IVIG tx and steroids in the past. has not seen hematology recently. Last EGD / Colon 03/2020 was negative for source for bleeding Obtained/updated/reviewed patient's current medications Past History Past Medical History: anemia, GERD, hepatitis, other (See HPI) Past Surgical History: Other (Endoscopy) Social history: single, smoking, other (Polysubstance abuse). denies: alcohol abuse, prescription drug abuse Family history: hypertension Medications and Allergies Allergies Allergy/AdvReac Type Severity Reaction Status Date / Time No Known Allergies Allergy Verified 04/10/21 12:52 Home Medications Medication Instructions Recorded Confirmed Last Taken Type No Known Home Medications [No 04/10/21 04/10/21 Unknown History Reported Home Medications] Active Meds: Active Medications Albuterol (Albuterol 2.5 Mg/3 Ml Nebu) 2.5 mg IH Q4HRT PRN PRN Reason: Shortness Of Breath Ferrous Sulfate (Ferrous Sulfate 325 Mg Tab) 325 mg PO TID [facility] Last Admin: 04/09/21 21:07 Dose: 325 mg Hydromorphone HCl (Hydromorphone 1 Mg/1 Ml Inj) 0.5 mg IV Q23H PRN PRN Reason: Pain , Severe (7-10) Sodium Chloride (Nacl 0.9% 500 Ml) 500 mls @ 0 mls/hr IV ONCE LUCIAN Sodium Chloride (Nacl 0.9% 1000 Ml) 1,000 mls @ 100 mls/hr IV DIRECT [facility] Last Admin: 04/09/21 22:50 Dose: 100 mls/hr Ibuprofen (Ibuprofen 600 Mg Tab) 600 mg PO Q6H PRN PRN Reason: Pain, Mild (1-3) Morphine Sulfate (Morphine 2 Mg/1 Ml Inj) 2 mg IV Q12H PRN PRN Reason: Pain, Moderate (4-6) Ondansetron HCl (Ondansetron 4 Mg/2 Ml Inj) 4 mg IV Q8H PRN PRN Reason: Nausea And Vomiting Pantoprazole Sodium (Pantoprazole 40 Mg Inj) 40 mg IV BID [facility] Last Admin: 04/09/21 22:51 Dose: 40 mg Sodium Chloride (Sodium Chloride 0.9% 10 Ml Flush Syringe) 10 ml IV BID [facility] Last Admin: 04/09/21 22:41 Dose: 10 ml Sodium Chloride (Sodium Chloride 0.9% 10 Ml Flush Syringe) 10 ml IV PRN PRN PRN Reason: LINE FLUSH Review of Systems - Review of Systems ROS unobtainable: due to mental status All systems: negative (10 systems reviewed and neg except as above in hpi) Exam - Constitutional Vital Signs: Temp Pulse Resp BP Pulse Ox 98.9 F 109 H 20 124/59 94 04/10/21 05:00 04/10/21 05:00 04/10/21 05:00 04/10/21 05:00 04/10/21 05:00 General appearance: no acute distress - EENT Eyes: EOM intact - Neck Neck: supple - Respiratory Respiratory effort: normal - Cardiovascular Rhythm: regular - Gastrointestinal General gastrointestinal: Present: soft, non-tender - Integumentary Integumentary: Present: dry - Psychiatric Psychiatric: appropriate mood/affect - Labs CBC & Chem 7: 04/10/21 08:25 04/09/21 15:20 Lab Results: Laboratory Results - last 24 hr 04/09/21 04/09/21 04/09/21 13:19 13:49 14:45 WBC 8.3 RBC 1.40 L Hgb 2.5 L* Hct 9.6 L* MCV 69 L MCH 18 L MCHC 26 L RDW 20.2 H Plt Count 506 H Lymph % (Auto) 5.1 L [place] % (Auto) 11.6 H Eos % (Auto) 0.0 Baso % (Auto) 0.5 Lymph # (Auto) 0.4 L [place] # (Auto) 1.0 H Eos # (Auto) 0.0 Baso # (Auto) 0.0 Seg Neutrophils % 82.8 H Seg Neutrophils # 6.8 PT INR APTT Sodium 138 Potassium 5.9 H Chloride 95.8 L Carbon Dioxide 11 L Anion Gap 37 BUN 33 H Creatinine 1.4 H Estimated GFR > 60 BUN/Creatinine Ratio 24 Glucose 98 POC Glucose 85 Lactic Acid Calcium 9.1 Magnesium 2.40 H Total Bilirubin 2.60 H AST 953 H ALT 401 H Alkaline Phosphatase 105 Ammonia Troponin T Total Protein 7.0 Albumin 4.2 Albumin/Globulin Ratio 1.5 Triglycerides Cholesterol LDL Cholesterol Direct HDL Cholesterol Cholesterol/HDL Ratio Lipase Urine Color Urine Turbidity Urine pH Ur Specific [place] Urine Protein Urine Glucose (UA) Urine Ketones Urine Blood Urine Nitrite Urine Bilirubin Urine Urobilinogen Ur Leukocyte Esterase Urine WBC (Auto) Urine RBC (Auto) U Epithel Cells (Auto) Acetaminophen Plasma/Serum Alcohol Blood Type Antibody Screen JYOTI Antibody Screen Crossmatch 04/09/21 04/09/21 04/09/21 15:16 15:16 15:16 WBC RBC Hgb Hct MCV MCH MCHC RDW Plt Count Lymph % (Auto) [place] % (Auto) Eos % (Auto) Baso % (Auto) Lymph # (Auto) [place] # (Auto) Eos # (Auto) Baso # (Auto) Seg Neutrophils % Seg Neutrophils # PT 25.0 H INR 2.06 H APTT 38.9 H Sodium Potassium Chloride Carbon Dioxide Anion Gap BUN Creatinine Estimated GFR BUN/Creatinine Ratio Glucose POC Glucose Lactic Acid 15.40 H* Calcium Magnesium Total Bilirubin AST ALT Alkaline Phosphatase Ammonia Troponin T Total Protein Albumin Albumin/Globulin Ratio Triglycerides Cholesterol LDL Cholesterol Direct HDL Cholesterol Cholesterol/HDL Ratio Lipase Urine Color Urine Turbidity Urine pH Ur Specific [place] Urine Protein Urine Glucose (UA) Urine Ketones Urine Blood Urine Nitrite Urine Bilirubin Urine Urobilinogen Ur Leukocyte Esterase Urine WBC (Auto) Urine RBC (Auto) U Epithel Cells (Auto) Acetaminophen Plasma/Serum Alcohol Blood Type A POSITIVE Antibody Screen TNR JYOTI Antibody Screen Negative Crossmatch See Detail 04/09/21 04/09/21 04/09/21 15:16 15:16 15:16 WBC RBC Hgb Hct MCV MCH MCHC RDW Plt Count Lymph % (Auto) [place] % (Auto) Eos % (Auto) Baso % (Auto) Lymph # (Auto) [place] # (Auto) Eos # (Auto) Baso # (Auto) Seg Neutrophils % Seg Neutrophils # PT INR APTT Sodium Potassium Chloride Carbon Dioxide Anion Gap BUN Creatinine Estimated GFR BUN/Creatinine Ratio Glucose POC Glucose Lactic Acid Calcium Magnesium Total Bilirubin AST ALT Alkaline Phosphatase Ammonia 68.0 H Troponin T Total Protein Albumin Albumin/Globulin Ratio Triglycerides Cholesterol LDL Cholesterol Direct HDL Cholesterol Cholesterol/HDL Ratio Lipase Urine Color Urine Turbidity Urine pH Ur Specific [place] Urine Protein Urine Glucose (UA) Urine Ketones Urine Blood Urine Nitrite Urine Bilirubin Urine Urobilinogen Ur Leukocyte Esterase Urine WBC (Auto) Urine RBC (Auto) U Epithel Cells (Auto) Acetaminophen 5.0 L Plasma/Serum Alcohol < 0.01 Blood Type Antibody Screen JYOTI Antibody Screen Crossmatch 04/09/21 04/09/21 04/09/21 15:16 15:20 18:01 WBC RBC Hgb Hct MCV MCH MCHC RDW Plt Count Lymph % (Auto) [place] % (Auto) Eos % (Auto) Baso % (Auto) Lymph # (Auto) [place] # (Auto) Eos # (Auto) Baso # (Auto) Seg Neutrophils % Seg Neutrophils # PT INR APTT Sodium 139 Potassium 5.5 H Chloride 97.8 L Carbon Dioxide 11 L Anion Gap 36 BUN 34 H Creatinine 1.3 Estimated GFR > 60 BUN/Creatinine Ratio 26 Glucose 113 H POC Glucose Lactic Acid 20.30 H* Calcium 9.1 Magnesium Total Bilirubin 2.30 H AST 854 H ALT 383 H Alkaline Phosphatase 91 Ammonia Troponin T Total Protein 6.2 L Albumin 3.9 Albumin/Globulin Ratio 1.7 Triglycerides Cholesterol LDL Cholesterol Direct HDL Cholesterol Cholesterol/HDL Ratio Lipase 8 L Urine Color Urine Turbidity Urine pH Ur Specific [place] Urine Protein Urine Glucose (UA) Urine Ketones Urine Blood Urine Nitrite Urine Bilirubin Urine Urobilinogen Ur Leukocyte Esterase Urine WBC (Auto) Urine RBC (Auto) U Epithel Cells (Auto) Acetaminophen Plasma/Serum Alcohol Blood Type Antibody Screen JYOTI Antibody Screen Crossmatch 04/09/21 04/09/21 04/09/21 18:01 22:15 Unknown WBC RBC Hgb Hct MCV MCH MCHC RDW Plt Count Lymph % (Auto) [place] % (Auto) Eos % (Auto) Baso % (Auto) Lymph # (Auto) [place] # (Auto) Eos # (Auto) Baso # (Auto) Seg Neutrophils % Seg Neutrophils # PT INR APTT Sodium Potassium Chloride Carbon Dioxide Anion Gap BUN Creatinine Estimated GFR BUN/Creatinine Ratio Glucose POC Glucose 101 Lactic Acid Calcium Magnesium Total Bilirubin AST ALT Alkaline Phosphatase Ammonia Troponin T 0.051 H Total Protein Albumin Albumin/Globulin Ratio Triglycerides 54 Cholesterol 58 LDL Cholesterol Direct 24 L HDL Cholesterol 33 L Cholesterol/HDL Ratio 1.75 Lipase Urine Color Yellow Urine Turbidity Clear Urine pH 5.0 Ur Specific [place] 1.019 Urine Protein <15 mg/dl Urine Glucose (UA) Neg Urine Ketones 20 Urine Blood Mod Urine Nitrite Neg Urine Bilirubin Neg Urine Urobilinogen 2.0 Ur Leukocyte Esterase Neg Urine WBC (Auto) < 1.0 Urine RBC (Auto) < 1.0 U Epithel Cells (Auto) < 1.0 Acetaminophen Plasma/Serum Alcohol Blood Type Antibody Screen JYOTI Antibody Screen Crossmatch 04/10/21 00:39 WBC RBC Hgb Hct MCV MCH MCHC RDW Plt Count Lymph % (Auto) [place] % (Auto) Eos % (Auto) Baso % (Auto) Lymph # (Auto) [place] # (Auto) Eos # (Auto) Baso # (Auto) Seg Neutrophils % Seg Neutrophils # PT INR APTT Sodium Potassium Chloride Carbon Dioxide Anion Gap BUN Creatinine Estimated GFR BUN/Creatinine Ratio Glucose POC Glucose Lactic Acid 11.00 H* Calcium Magnesium Total Bilirubin AST ALT Alkaline Phosphatase Ammonia Troponin T Total Protein Albumin Albumin/Globulin Ratio Triglycerides Cholesterol LDL Cholesterol Direct HDL Cholesterol Cholesterol/HDL Ratio Lipase Urine Color Urine Turbidity Urine pH Ur Specific [place] Urine Protein Urine Glucose (UA) Urine Ketones Urine Blood Urine Nitrite Urine Bilirubin Urine Urobilinogen Ur Leukocyte Esterase Urine WBC (Auto) Urine RBC (Auto) U Epithel Cells (Auto) Acetaminophen Plasma/Serum Alcohol Blood Type Antibody Screen JYOTI Antibody Screen Crossmatch Assessment and Plan patient has already had EGD/colon and therefore pillcam would be the next step in the evaluation Therefore transfuse and if hgb stable discharge with outpatient followup with us for pillcam if overt bleeding would however consider repeat endoscopy as an inpatient. Ddx avm in small bowel, less likely colon avm or polyps hem related anemia also in ddx - Patient Problems (1) Coagulopathy Current Visit: Yes Status: Acute (2) Colitis Current Visit: Yes Status: Acute (3) Elevated LFTs Current Visit: Yes Status: Acute (4) Elevated lactic acid level Current Visit: Yes Status: Acute (5) Gastrointestinal hemorrhage Current Visit: Yes Status: Acute (6) Iron deficiency anemia Current Visit: Yes Status: Acute (7) Guaiac + stool Current Visit: No Status: Acute
[2021-04-10 08:33] LABS: Mean Corpuscular HGB Conc 30 % (32-34); Mean Corpuscular Volume 75 fl (84-94); Platelet Count 445 K/mm3 (140-440); Red Blood Count 2.53 M/mm3 (3.65-5.03)
[2021-04-10] MEDS: FERROUS SULFATE 325 MG TAB PO SCH ×3 (08:35→20:23)
[2021-04-10 08:36] LABS: Hematocrit 18.9 % (35.5-45.6); Hemoglobin 5.6 gm/dl (11.8-15.2); Red Cell Distribution Width 25.7 % (13.2-15.2)
[2021-04-10 09:15] LABS: Band Neutrophils # (Manual) 0.1 K/mm3; Basophils % (Manual) 0 % (0.0-1.8); Eosinophils % (Manual) 0 % (0.0-4.3); Total Cells Counted 100
[2021-04-10 09:16] LABS: Anisocytosis 1+; Hypochromasia 2+; Ovalocytes Few; Poikilocytosis 1+; Tear Drop Cells Few
[2021-04-10 09:17] LABS: Large Platelets 1+; Platelet Estimate Consistent w Auto
--- NOTE | 2021-04-10 10:22 | Electrocardiograph Report ---
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
[2021-04-10] MEDS: PANTOPRAZOLE 40 MG INJ IV SCH ×2 (11:38→22:00)
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
[2021-04-10 22:08] LABS: Hematocrit 25.8 % (35.5-45.6); Hemoglobin 8.3 gm/dl (11.8-15.2)
[2021-04-11] MEDS: SODIUM CHLORIDE 0.9% 1000 ML 1,000 ML IV SCH ×2 (07:28→16:06)
[2021-04-11] MEDS: FERROUS SULFATE 325 MG TAB PO SCH ×3 (08:00→22:51)
--- NOTE | 2021-04-11 08:33 | Gastroenterology Progress Note ---
Assessment and Plan patient has already had EGD/colon and therefore pillcam would be the next step in the evaluation Hemoglobin up appropriately with transfusion of PRBC Recommend repeat hemoglobin and as long as remained stable please discharge the patient with instructions for close outpatient follow-up with us for PillCam Ddx avm in small bowel, less likely colon avm or polyps hem related anemia also in ddx - Patient Problems (1) Coagulopathy Current Visit: Yes Status: Acute (2) Colitis Current Visit: Yes Status: Acute (3) Elevated LFTs Current Visit: Yes Status: Acute (4) Elevated lactic acid level Current Visit: Yes Status: Acute (5) Gastrointestinal hemorrhage Current Visit: Yes Status: Acute (6) Iron deficiency anemia Current Visit: Yes Status: Acute (7) Guaiac + stool Current Visit: No Status: Acute Subjective Date of service: 04/11/21 Principal diagnosis: anemia Interval history: Patient denies stomach pain or any overt bleeding when I examined him today Objective - Constitutional Vitals: Temp Pulse Resp BP Pulse Ox 98.9 F 96 H 16 111/59 100 04/11/21 04:25 04/11/21 04:25 04/11/21 04:25 04/11/21 04:25 04/11/21 04:25 General appearance: no acute distress - Neck Neck: supple - Respiratory Respiratory effort: normal - Gastrointestinal General gastrointestinal: Present: soft, non-tender - Labs CBC & Chem 7: 04/10/21 21:30 04/09/21 15:20 Labs: Laboratory Results - last 24 hr 04/09/21 04/10/21 04/10/21 15:16 08:25 11:22 WBC 8.7 RBC 2.53 L Hgb 5.6 L* D Hct 18.9 L* D MCV 75 L MCH 22 L MCHC 30 L RDW 25.7 H Plt Count 445 H Lymph % (Auto) Twister Tender Paper Miner % (Auto) Twister Tender Paper Eos % (Auto) Twister Tender Paper Baso % (Auto) Twister Tender Paper Lymph # (Auto) Twister Tender Paper Miner # (Auto) Twister Tender Paper Eos # (Auto) Twister Tender Paper Baso # (Auto) Twister Tender Paper Add Manual Diff Complete Total Counted 100 Seg Neutrophils % Twister Tender Paper Seg Neuts % (Manual) 88.0 H Band Neutrophils % 1.0 Lymphocytes % (Manual) 3.0 L Reactive Lymphs % (Man) 0 Monocytes % (Manual) 8.0 H Eosinophils % (Manual) 0 Basophils % (Manual) 0 Metamyelocytes % 0 Myelocytes % 0 Promyelocytes % 0 Blast Cells % 0 Nucleated RBC % Not Reportable Seg Neutrophils # Twister Tender Paper Seg Neutrophils # Man 7.7 Band Neutrophils # 0.1 Lymphocytes # (Manual) 0.3 L Abs React Lymphs (Man) 0.0 Monocytes # (Manual) 0.7 Eosinophils # (Manual) 0.0 Basophils # (Manual) 0.0 Metamyelocytes # 0.0 Myelocytes # 0.0 Promyelocytes # 0.0 Blast Cells # 0.0 WBC Morphology Not Reportable Hypersegmented Neuts Not Reportable Hyposegmented Neuts Not Reportable Hypogranular Neuts Not Reportable Smudge Cells Not Reportable Toxic Granulation Not Reportable Toxic Vacuolation Not Reportable Dohle Bodies Not Reportable Pelger-Huet Anomaly Not Reportable Katia Rods Not Reportable Platelet Estimate Consistent w auto Clumped Platelets Not Reportable Plt Clumps, EDTA Not Reportable Large Platelets 1+ Giant Platelets Not Reportable Platelet Satelliting Not Reportable Plt Morphology Comment Not Reportable RBC Morphology Not Reportable Dimorphic RBCs Not Reportable Polychromasia Not Reportable Hypochromasia 2+ Poikilocytosis 1+ Anisocytosis 1+ Microcytosis Not Reportable Macrocytosis Not Reportable Spherocytes Not Reportable Pappenheimer Bodies Not Reportable Sickle Cells Not Reportable Target Cells Not Reportable Tear Drop Cells Few Ovalocytes Few Helmet Cells Not Reportable [place] Bodies Not Reportable [place] Not Reportable [place] Cells Not Reportable Bite Cells Not Reportable Crenated Cell Not Reportable Elliptocytes Few Acanthocytes (Spur) Not Reportable Rouleaux Not Reportable Hemoglobin C Crystals Not Reportable Schistocytes Not Reportable Malaria parasites Not Reportable Jl Bodies Not Reportable Hem Pathologist Commnt No POC Glucose 146 H Magnesium Blood Type A POSITIVE Antibody Screen TNR JYOTI Antibody Screen Negative Crossmatch See Detail 04/10/21 04/10/21 04/10/21 16:54 21:30 21:45 WBC RBC Hgb 8.3 L Hct 25.8 L D MCV MCH MCHC RDW Plt Count Lymph % (Auto) Miner % (Auto) Eos % (Auto) Baso % (Auto) Lymph # (Auto) Miner # (Auto) Eos # (Auto) Baso # (Auto) Add Manual Diff Total Counted Seg Neutrophils % Seg Neuts % (Manual) Band Neutrophils % Lymphocytes % (Manual) Reactive Lymphs % (Man) Monocytes % (Manual) Eosinophils % (Manual) Basophils % (Manual) Metamyelocytes % Myelocytes % Promyelocytes % Blast Cells % Nucleated RBC % Seg Neutrophils # Seg Neutrophils # Man Band Neutrophils # Lymphocytes # (Manual) Abs React Lymphs (Man) Monocytes # (Manual) Eosinophils # (Manual) Basophils # (Manual) Metamyelocytes # Myelocytes # Promyelocytes # Blast Cells # WBC Morphology Hypersegmented Neuts Hyposegmented Neuts Hypogranular Neuts Smudge Cells Toxic Granulation Toxic Vacuolation Dohle Bodies Pelger-Huet Anomaly Katia Rods Platelet Estimate Clumped Platelets Plt Clumps, EDTA Large Platelets Giant Platelets Platelet Satelliting Plt Morphology Comment RBC Morphology Dimorphic RBCs Polychromasia Hypochromasia Poikilocytosis Anisocytosis Microcytosis Macrocytosis Spherocytes Pappenheimer Bodies Sickle Cells Target Cells Tear Drop Cells Ovalocytes Helmet Cells [place] Bodies [place] Luke Cells Bite Cells Crenated Cell Elliptocytes Acanthocytes (Spur) Rouleaux Hemoglobin C Crystals Schistocytes Malaria parasites Jl Bodies Hem Pathologist Commnt POC Glucose 145 H 195 H Magnesium Blood Type Antibody Screen JYOTI Antibody Screen Crossmatch 04/11/21 04/11/21 06:39 07:29 WBC RBC Hgb Hct MCV MCH MCHC RDW Plt Count Lymph % (Auto) Miner % (Auto) Eos % (Auto) Baso % (Auto) Lymph # (Auto) Miner # (Auto) Eos # (Auto) Baso # (Auto) Add Manual Diff Total Counted Seg Neutrophils % Seg Neuts % (Manual) Band Neutrophils % Lymphocytes % (Manual) Reactive Lymphs % (Man) Monocytes % (Manual) Eosinophils % (Manual) Basophils % (Manual) Metamyelocytes % Myelocytes % Promyelocytes % Blast Cells % Nucleated RBC % Seg Neutrophils # Seg Neutrophils # Man Band Neutrophils # Lymphocytes # (Manual) Abs React Lymphs (Man) Monocytes # (Manual) Eosinophils # (Manual) Basophils # (Manual) Metamyelocytes # Myelocytes # Promyelocytes # Blast Cells # WBC Morphology Hypersegmented Neuts Hyposegmented Neuts Hypogranular Neuts Smudge Cells Toxic Granulation Toxic Vacuolation Dohle Bodies Pelger-Huet Anomaly Katia Rods Platelet Estimate Clumped Platelets Plt Clumps, EDTA Large Platelets Giant Platelets Platelet Satelliting Plt Morphology Comment RBC Morphology Dimorphic RBCs Polychromasia Hypochromasia Poikilocytosis Anisocytosis Microcytosis Macrocytosis Spherocytes Pappenheimer Bodies Sickle Cells Target Cells Tear Drop Cells Ovalocytes Helmet Cells Suarez-[place] Bodies [place] Cells Bite Cells Crenated Cell Elliptocytes Acanthocytes (Spur) Rouleaux Hemoglobin C Crystals Schistocytes Malaria parasites Jl Bodies Hem Pathologist Commnt POC Glucose 121 H Magnesium 2.00 Blood Type Antibody Screen JYOTI Antibody Screen Crossmatch
[2021-04-11] MEDS: PANTOPRAZOLE 40 MG INJ IV SCH (09:38)
[2021-04-11] MEDS: PANTOPRAZOLE 40 MG TAB PO SCH ×2 (09:41→16:04)
[2021-04-11 10:18] LABS: Hematocrit 27.2 % (35.5-45.6); Hemoglobin 8.5 gm/dl (11.8-15.2); Mean Corpuscular HGB Conc 31 % (32-34); Mean Corpuscular Volume 77 fl (84-94); Platelet Count 468 K/mm3 (140-440); Red Blood Count 3.55 M/mm3 (3.65-5.03)
[2021-04-11 10:42] LABS: BUN/Creatinine Ratio 25; Blood Urea Nitrogen 20 mg/dL (9-20); Calcium 7.8 mg/dL (8.4-10.2); Hemolysis Index 4
--- NOTE | 2021-04-11 17:06 | Discharge Summary ---
Providers - Providers Date of Admission: 04/09/21 17:54 Date of discharge: 04/11/21 Attending physician: DARIUS HORTON Primary care physician: VARNISHER PLASTICOATER Hospitalization Condition: Stable Disposition: 01 HOME / SELF CARE / HOMELESS Final Discharge Diagnosis (Prints w/discharge instructions): --GI bleed with severe anemia Time spent for discharge: 34 minutes Exam - Constitutional Vitals: Temp Pulse Resp BP Pulse Ox 97.4 F L 104 H 18 120/70 99 04/11/21 15:59 04/11/21 15:59 04/11/21 15:59 04/11/21 15:59 04/11/21 15:59 Plan Activity: advance as tolerated Weight Bearing Status: Weight Bear as Tolerated Diet: low fat, low salt Follow up with: PRIMARY CAREMD [Primary Care Provider] - 3-5 Days LUDA MOSLEY MD [Staff Physician] - 7 Days Prescriptions: Ferrous Sulfate [Feosol 325 MG tab] 325 mg PO BID #60 tablet Pantoprazole [Protonix TAB] 40 mg PO BIDAC #60 tablet
[2021-04-12] MEDS: SODIUM CHLORIDE 0.9% 1000 ML 1,000 ML IV SCH (04:21)
[2021-04-12] MEDS: PANTOPRAZOLE 40 MG TAB PO SCH (07:30)
[2021-04-12] MEDS: FERROUS SULFATE 325 MG TAB PO SCH ×2 (08:00→13:40)
--- NOTE | 2021-04-12 12:33 | Discharge Summary ---
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 Pt reports "I have been going to the bathroom a lot". Pt states that he has experienced multiple episodes of diarrhea over the past 2 days. Patient also acknowledges generalized weakness, decreased exercise tolerance, and lightheadedness over the past 1 week with worsening symptoms over the past 2 days. EMS was notified and upon arrival the patient was found to be in distress and subsequent transported x-rays for further care and evaluation of the aforementioned symptoms. The patient was seen and evaluated in the emergency department. All lab and imaging studies reviewed. Pt found to have symptomatic anemia with a hemoglobin of 2.5 as well, systolic blood pressure of 997263 mmHg. Pt is dizzy and is unable to tolerate orthostatic hypotension measurements. Patient admitted to medical floor and initiated on GI bleed protocol. Patient transfused with packed red blood cells, GI team consulted. Patient denies fever, chills, chest pain, palpitation, productive cough, skin rash, recent ill contact, or known exposure to COVID-19, bright red blood per rectum, melanotic stool, recent ill contacts. Advanced care planning conducted in ED. Per GI patient has already had EGD/colon and therefore pillcam would be the next step in the evaluation Hemoglobin up appropriately with transfusion of PRBC Recommend repeat hemoglobin and as long as remained stable please discharge the patient with instructions for close outpatient follow-up with us for PillCam Ddx avm in small bowel, less likely colon avm or polyps hem related anemia also in ddx Assessment and Plan (1) Gastrointestinal hemorrhage Current Visit: Yes Status: Acute Plan to address problem: Resolved (2) Colitis Current Visit: Yes Status: Acute Plan to address problem: Oral antibiotics (3) Lactic acidosis Current Visit: Yes Status: Acute Plan to address problem: Resolved (4) Iron deficiency anemia Current Visit: Yes Status: Acute Plan to address problem: Patient to go home on ferrous gluconate 324 mg once a day (5) Elevated liver function tests Current Visit: Yes Status: Acute Plan to address problem: No alcohol (6) Advance care planning Current Visit: Yes Status: Acute Plan to address problem: Disease education conducted, care plan discussed, diagnoses discussed, prognosis discussed, patient is full code, patient acknowledges understanding and agreement with care plan, +30 minutes. Disposition: 01 HOME / SELF CARE / HOMELESS Final Discharge Diagnosis (Prints w/discharge instructions): Gastrointestinal hemorrhage. Colitis. Lactic acidosis. Iron deficiency anemia. Transaminitis Time spent for discharge: 35 minutes - Discharge Diagnoses (1) Colitis Status: Acute (2) Lower GI bleed Status: Acute (3) Diabetes Status: Acute (4) Symptomatic anemia Status: Acute (5) DVT prophylaxis Status: Acute Core Measure Documentation - Palliative Care Palliative Care/ Comfort Measures: Not Applicable - Core Measures Any of the following diagnoses?: none Exam - Constitutional Vitals: Temp Pulse Resp BP Pulse Ox 98.1 F 99 H 18 121/78 95 04/12/21 05:23 04/12/21 05:23 04/12/21 05:23 04/12/21 05:23 04/12/21 05:23 General appearance: Present: no acute distress, well-nourished - EENT Eyes: Present: PERRL ENT: hearing intact, clear oral mucosa - Neck Neck: Present: supple, normal ROM - Respiratory Respiratory effort: normal Respiratory: bilateral: CTA - Cardiovascular Heart rate: 78 Rhythm: regular Heart Sounds: Present: S1 & S2. Absent: rub, click - Extremities Extremities: no ischemia, pulses intact, pulses symmetrical, No edema Peripheral Pulses: within normal limits - Abdominal General gastrointestinal: Present: soft, non-tender, non-distended, normal bowel sounds Male genitourinary: Present: normal - Rectal Rectal Exam: deferred - Integumentary Integumentary: Present: clear, warm, dry - Musculoskeletal Musculoskeletal: gait normal, strength equal bilaterally - Psychiatric Psychiatric: appropriate mood/affect, intact judgment & insight - Neurologic Neurologic: CNII-XII intact, moves all extremities - Allied Health Allied health notes reviewed: nursing, case management Plan Activity: no restrictions Diet: regular, diabetic Follow up with: LUDA MOSLEY MD [Staff Physician] - 7 Days PRIMARY CARE, [Primary Care Provider] - 3-5 Days Prescriptions: Ferrous Gluconate [Ferrous Gluconate 324 MG] 324 mg PO QDAY #30 metFORMIN [Glucophage] 500 mg PO QDAY #30 tab Pantoprazole [Protonix] 40 mg PO BID #60 tablet
[2021-04-12 14:21] VITALS: BP 112/69
--- NOTE | 2021-04-12 14:46 | Electrocardiograph Report ---
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
== END 2021-04-12 14:00 | disposition home or self-care (01) | DRG 378 ==
LOC: ED 11:52 → 3A 17:54
PROVIDERS: ADMIT Internal Medicine; ATTEND Internal Medicine
PROC: 30233N1 Transfusion of Nonautologous Red Blood Cells into Peripheral Vein, Percutaneous Approach (ICD-10-PCS; principal; 2021-04-09)
DX: K92.2 Gastrointestinal hemorrhage, unspecified (principal); E87.2 Acidosis; D68.9 Coagulation defect, unspecified; D50.8 Other iron deficiency anemias; K52.9 Noninfective gastroenteritis and colitis, unspecified; E87.6 Hypokalemia; K21.9 Gastro-esophageal reflux disease without esophagitis; Z82.49 Family history of ischemic heart disease and other diseases of the circulatory system
CPT/HCPCS: 36415; 74177; 80048; 80053; 80061; 80320; 81001; 82140; 82962; 83690; 83735; 84484; 85007; 85014; 85018; 85025; 85027; 85610; 85730; 86850; 86900; 86901; 87040; 93005; 93010; 94640; 94644; G0378; J3490; J7517; Q0162; C9113; G0480; J1956; J2270; J7030; J7040; P9016; Q9967

== ENCOUNTER 2021-04-13 11:39 | Inpatient (IN) | payer SELFPAY ==
[2021-04-13] MEDS ORDERED: METOCLOPRAMIDE 10 MG/2 ML INJ IV ONE (12:34)
[2021-04-13] MEDS ORDERED: ACETAMINOPHEN 325 MG TAB PO ONE (12:34)
[2021-04-13] MEDS ORDERED: LACTATED RINGERS 1,000 ML IV ONE (12:34)
[2021-04-13] MEDS ORDERED: PANTOPRAZOLE 40 MG INJ IV ONE (12:34)
--- NOTE | 2021-04-13 13:15 | XRay Report ---
CHEST 1 VIEW 04/13/2021 12:37 PM INDICATION / CLINICAL INFORMATION: GI Bleed. COMPARISON: 03/24/20 FINDINGS: SUPPORT DEVICES: None. HEART / MEDIASTINUM: Heart is mildly enlarged and stable. LUNGS / PLEURA: Mild bibasilar densities may represent atelectasis with tiny bilateral pleural effusi ons. No pneumothorax. ADDITIONAL FINDINGS: No significant additional findings. IMPRESSION: 1. Stable mild cardiomegaly with bibasilar atelectasis and tiny pleural effusions. Signer Name: Shawnee Carias MD Signed: 04/13/2021 1:11 PM Workstation Name: [id number]
--- NOTE | 2021-04-13 13:18 | Emergency Department Report ---
ED General Adult HPI - General Chief complaint: Chest Pain Stated complaint: CHEST PAINS/HEADACHES/SOB PUI?: No Time Seen by Provider: 04/13/21 12:18 Source: patient, RN notes reviewed, old records reviewed Mode of arrival: Stretcher Limitations: No Limitations - History of Present Illness Initial comments: The patient was evaluated in the emergency department for symptoms described in the history of present illness. He/she was evaluated in the context of the global COVID-19 pandemic, which necessitated consideration that the patient might be at risk for infection with the virus that causes COVID-19. Institutional protocols and algorithms that pertain to the evaluation of patients at risk for COVID-19 are in a state of rapid change based on information released by regulatory bodies including the CDC and federal and s hall organizations. These policies and algorithms were followed during the patient's care in the emergency department. Please note that these policies, procedures and recommendations changed on a rapid basis. During the history and physical examination I am chaperoned by nurse voice Ochoa Patel Past medical history: Diabetes, osteoarthritis, arteriovenous malformation, complicated by symptomatic anemia, nicotine dependence, hepatitis C and GERD. The patient was recently admitted to the hospital April 09 through April 12. At that time, the patient was found to have symptomatic anemia, and mild hypotension. He was transfused packed red blood cells. He was seen by GI, who indicated that the patient had already had EGD/colonoscopy, and therefore PillCam would be the next step in evaluation. His hemoglobin had appropriately increased, and he was recommended to follow-up as an outpatient. Today, the patient presents to the ER with a complaint of headache which is right-sided and present for a few days. The patient describes the headache as throbbing. The headache is not sudden or thunderclap in nature. The headache is not the worst headache of his life. He denies focal extremity weakness or numbness. He also complains of chest pain. The chest pain is central, right-sided and left-sided. The patient denies vomiting or diaphoresis. The patient has chronic shortness of breath. He endorses lower extremity cramping for 7 to 8 months. He also reports that he feels like his legs are generally weak, and giving out on him. He denies hematemesis of bright red blood per rectum. He denies urinary symptoms. As per review of old medical records, he had an echocardiogram and 2021, which demonstrated an EF of 50-55%. He also has a known history of nonsustained ritu tricular tachycardia, which is likely attributed to profound anemia. -: Gradual, days(s), week(s), month(s) Location: head, chest, left, right, lower extremity Quality: aching Consistency: intermittent Improves with: rest Worsens with: movement - Related Data Previous Rx's Medication Instructions Recorded Last Taken Type Ferrous Gluconate [Ferrous 324 mg PO QDAY #30 04/12/21 Unknown Rx Gluconate 324 MG] Pantoprazole [Protonix] 40 mg PO BID #60 tablet 04/12/21 Unknown Rx metFORMIN [Glucophage] 500 mg PO QDAY #30 tab 04/12/21 Unknown Rx Allergies Allergy/AdvReac Type Severity Reaction Status Date / Time No Known Allergies Allergy Verified 04/13/21 11:51 ED Review of Systems ROS: Stated complaint: CHEST PAINS/HEADACHES/SOB Other details as noted in HPI Constitutional: malaise, weakness. denies: fever Eyes: denies: eye discharge ENT: denies: congestion Respiratory: cough, shortness of breath Cardiovascular: chest pain Gastrointestinal: denies: abdominal pain, nausea, vomiting, hematemesis, melena, hematochezia Neurological: headache, weakness ED Past Medical Hx - Past Medical History Hx Hypertension: No Hx Heart Attack/AMI: No Hx Congestive Heart Failure: No Hx Diabetes: Yes Hx Deep Vein Thrombosis: No Hx GERD: Yes Hx Liver Disease: No Hx Renal Disease: No Hx Sickle Cell Disease: No Hx Arthritis: Yes Hx Seizures: No Hx Asthma: No Hx COPD: No Hx Dementia: No Hx HIV: No Additional medical history: ANEMIA. Proximal gut and multiple colon AVM's (endoscopy/colonoscopy March 2017). hep C. Pancytopenia. Recurrent anemia requiring blood transfusion. ITP - Surgical History Hx Coronary Stent: No Hx Pacemaker: No Hx Internal Defibrillator: No - Social History Smoking Status: Never Smoker Substance Use Type: None - Medications Home Medications: Home Medications Medication Instructions Recorded Confirmed Last Taken Type Ferrous Gluconate [Ferrous 324 mg PO QDAY #30 04/12/21 Unknown Rx Gluconate 324 MG] Pantoprazole [Protonix] 40 mg PO BID #60 tablet 04/12/21 Unknown Rx metFORMIN [Glucophage] 500 mg PO QDAY #30 tab 04/12/21 Unknown Rx ED Physical Exam - General Limitations: No Limitations General appearance: alert, anxious - Head Head exam: Present: atraumatic, normocephalic - Eye Eye exam: Present: normal appearance, EOMI. Absent: nystagmus - ENT ENT exam: Present: normal exam, normal orophraynx, mucous membranes moist, normal external ear exam - Neck Neck exam: Present: normal inspection, full ROM. Absent: tenderness, meningismus - Respiratory Respiratory exam: Present: normal lung sounds bilaterally. Absent: respiratory distress, wheezes, rales, rhonchi, stridor, decreased breath sounds - Cardiovascular Cardiovascular Exam: Present: normal rhythm, tachycardia, normal heart sounds. Absent: bradycardia, irregular rhythm, systolic murmur, diastolic murmur, rubs, gallop - GI/Abdominal GI/Abdominal exam: Present: soft. Absent: distended, tenderness, guarding, rebo und, rigid, pulsatile mass - Rectal Rectal exam: Present: normal inspection, normal rectal tone, heme (+) stool, other (Chaperoned by nurse Ochoa Patel). Absent: black stool, bloody stool - Extremities Exam Extremities exam: Present: normal inspection, full ROM, other (2+ pulses noted in the bilateral upper and lower extremities. There is no palpable cord. negative Homans sign. Muscular compartments are soft. The pelvis is stable.). Absent: pedal edema - Back Exam Back exam: Present: normal inspection. Absent: tenderness, CVA tenderness (R), CVA tenderness (L), paraspinal tenderness, vertebral tenderness - Neurological Exam Neurological exam: Present: alert (Downgoing plantar reflexes bilaterally), oriented X3, other (No facial droop. Tongue midline. Extraocular movements intact bilaterally. Facial sensation intact to light touch in V1, V2, V3 distribution bilaterally. 5 and a 5 strength in 4 extremities. Sensation i ntact to light touch in 4 extremities.). Absent: motor sensory deficit - Psychiatric Psychiatric exam: Present: flat affect - Skin Skin exam: Present: warm, dry, intact, normal color. Absent: rash ED Course Vital Signs 04/13/21 04/13/21 04/13/21 11:57 12:18 16:15 Temperature 98.2 F Pulse Rate 100 H Respiratory 18 Rate Blood Pressure 117/68 O2 Sat by Pulse 98 96 Oximetry O2 Sat by Pulse 98 Oximetry [ Digit-Finger] - Reevaluation(s) Reevaluation #1: 04/13/21 15:10 Differential diagnosis, including but not limited to: Acute coronary syndrome, GERD, gastritis, hiatal hernia, pneumonia, costochondritis, pulmonary embolism, DVT, migraine headache, tension headache, cluster headache Assessment and plan: 65-year-old gentleman with multiple complaints, including leg pain and cramping, chest pain and shortness of breath and headache. In terms of the patient's headache, he has a GCS of 15, with NIH score of 0, unremarkable physical/neurologic examination, noncontrast CT scan of the brain is negative for acute findings. Tylenol, Reglan, Benadryl for supportive care. Outpatient management. In terms of the patient's leg pain and cramping, he has full range of motion in his bilateral lower extremities, there is no redness, pus or streaking noted, there is no significant joint effusion, redness erythema or tenderness. DVT study is negative, Tylenol, supportive care, rice therapy, physical therapy, outpatient management. He may benefit from physical therapy and/or occupational therapy evaluation. In terms of the patient's chest pain, he has a newly elevated troponin in the past few days. He is moderate risk for major adverse cardiac event as per heart score. No recent cardiac stress test or cardiac catheterization. He is also poorly mobile, and has had recent hospitalization. Acute coronary syndrome/CAD/PE on differential diagnosis. Elevated D-dimer is obtained. Nuclear medicine study of the lungs will be obtained, as patient does not have peripheral IV access to permit CT angiogram of the chest. Given elevated troponin and heart score, contacted cardiology on-call, Dr. Munson. Have discussed the patient's history, physical, laboratory studies EKG findings, clinical impression and overall plan of care. He advises that the cardiology team can follow in consultation. Further advises that aspirin would be acceptable. Hemoglobin, hematocrit stable and unchanged at this time. Patient has brown stool that is guaiac positive which appears to be chronic. From an anemia/GI perspective, he does not appear to be emergently decompensated. He is also found to be hypomagnesemic as well as hypokalemic. We will address and treat these. Hospital physician is paged to arrange admission. 04/13/21 16:15 Dr. Pb to admit patient to the medical service. 04/13/21 19:42 Nuclear medicine study is low probability for pulmonary embolism. Patient resting comfortably in stretcher at this time - EJ/Peripheral Line Neck L Time Out Performed: Yes Indications: nurses unable to establis Skin Cleansed in Sterile Fashion: Yes Size: 20 Dressing Placed: Tegaderm Patient Tolerated Procedure: well - Pulse Oximetry Interpretation Digit-Finger Initial Pulse Oximetry Readin O2 Sat by Pulse Oximetry: 98 Actions Taken: none ED Medical Decision Making - Lab Data Result diagrams: 04/13/21 12:58 04/13/21 12:58 Vital Signs - 24 hr 04/13/21 04/13/21 11:57 12:18 Temperature 98.2 F Pulse Rate 100 H Respiratory 18 Rate Blood Pressure 117/68 O2 Sat by Pulse 98 96 Oximetry Lab Results 04/13/21 04/13/21 04/13/21 Range/Units 12:58 12:58 12:58 WBC 5.8 (4.5-11.0) K/mm3 RBC 3.60 L (3.65-5.03) M/mm3 Hgb 8.7 L (11.8-15.2) gm/dl Hct 28.2 L (35.5-45.6) % MCV 78 L (84-94) fl MCH 24 L (28-32) pg MCHC 31 L (32-34) % RDW 26.4 H (13.2-15.2) % Plt Count 572 H (140-440) K/mm3 PT 16.9 H (12.2-14.9) Sec. INR 1.24 H (0.87-1.13) APTT 34.1 (24.2-36.6) Sec. D-Dimer (0-234) ng/mlDDU Sodium 137 (137-145) mmol/L Potassium 3.4 L (3.6-5.0) mmol/L Chloride 105.6 (98-107) mmol/L Carbon Dioxide 22 (22-30) mmol/L Anion Gap 13 mmol/L BUN 8 L (9-20) mg/dL Creatinine 0.7 L (0.8-1.3) mg/dL Estimated GFR > 60 ml/min BUN/Creatinine Ratio 11 % Glucose 147 H (75-100) mg/dL Calcium 8.0 L (8.4-10.2) mg/dL Magnesium 1.60 L (1.7-2.3) mg/dL Total Bilirubin 1.80 H (0.1-1.2) mg/dL AST 40 (5-40) units/L ALT 145 H (7-56) units/L Alkaline Phosphatase 74 (35-129) units/L Total Creatine Kinase (55-170) units/L Troponin T (0.00-0.029) ng/mL NT-Pro-B Natriuret Pep (0-900) pg/mL Total Protein 4.8 L D (6.3-8.2) g/dL Albumin 2.9 L (3.9-5) g/dL Albumin/Globulin Ratio 1.5 % Blood Type Antibody Screen 04/13/21 04/13/21 04/13/21 Range/Units 12:58 12:58 12:58 WBC (4.5-11.0) K/mm3 RBC (3.65-5.03) M/mm3 Hgb (11.8-15.2) gm/dl Hct (35.5-45.6) % MCV (84-94) fl MCH (28-32) pg MCHC (32-34) % RDW (13.2-15.2) % Plt Count (140-440) K/mm3 PT (12.2-14.9) Sec. INR (0.87-1.13) APTT (24.2-36.6) Sec. D-Dimer 3115.98 H (0-234) ng/mlDDU Sodium (137-145) mmol/L Potassium (3.6-5.0) mmol/L Chloride (98-107) mmol/L Carbon Dioxide (22-30) mmol/L Anion Gap mmol/L BUN (9-20) mg/dL Creatinine (0.8-1.3) mg/dL Estimated GFR ml/min BUN/Creatinine Ratio % Glucose (75-100) mg/dL Calcium (8.4-10.2) mg/dL Magnesium (1.7-2.3) mg/dL Total Bilirubin (0.1-1.2) mg/dL AST (5-40) units/L ALT (7-56) units/L Alkaline Phosphatase (35-129) units/L Total Creatine Kinase 127 (55-170) units/L Troponin T 0.031 H D (0.00-0.029) ng/mL NT-Pro-B Natriuret Pep (0-900) pg/mL Total Protein (6.3-8.2) g/dL Albumin (3.9-5) g/dL Albumin/Globulin Ratio % Blood Type A POSITIVE Antibody Screen TNR 04/13/21 Range/Units 13:40 WBC (4.5-11.0) K/mm3 RBC (3.65-5.03) M/mm3 Hgb (11.8-15.2) gm/dl Hct (35.5-45.6) % MCV (84-94) fl MCH (28-32) pg MCHC (32-34) % RDW (13.2-15.2) % Plt Count (140-440) K/mm3 PT (12.2-14.9) Sec. INR (0.87-1.13) APTT (24.2-36.6) Sec. D-Dimer (0-234) ng/mlDDU Sodium (137-145) mmol/L Potassium (3.6-5.0) mmol/L Chloride (98-107) mmol/L Carbon Dioxide (22-30) mmol/L Anion Gap mmol/L BUN (9-20) mg/dL Creatinine (0.8-1.3) mg/dL Estimated GFR ml/min BUN/Creatinine Ratio % Glucose (75-100) mg/dL Calcium (8.4-10.2) mg/dL Magnesium (1.7-2.3) mg/dL Total Bilirubin (0.1-1.2) mg/dL AST (5-40) units/L ALT (7-56) units/L Alkaline Phosphatase (35-129) units/L Total Creatine Kinase (55-170) units/L Troponin T (0.00-0.029) ng/mL NT-Pro-B Natriuret Pep 993.7 H (0-900) pg/mL Total Protein (6.3-8.2) g/dL Albumin (3.9-5) g/dL Albumin/Globulin Ratio % Blood Type Antibody Screen - EKG Data -: EKG Interpreted by Mn EKG shows normal: sinus rhythm Rate: normal - EKG Data 04/13/21 13:21 The EKG is interpreted at 11: 49 Sinus rhythm, tachycardia, rate 102 bpm. Left axis deviation, left anterior fascicular block, poor R wave progression, QTC 439 ms. This is an abnormal EKG. This is not a STEMI. Ice appears to be unchanged from prior EKG from April 2021 - Radiology Data Radiology results: report reviewed, image reviewed CHEST 1 VIEW 04/13/2021 12:37 PM INDICATION / CLINICAL INFORMATION: GI Bleed. CO MPARISON: 03/24/20 FINDINGS: SUPPORT DEVICES: None. HEART / MEDIASTINUM: Heart is mildly enlarged and stable. LUNGS / PLEURA: Mild bibasilar densities may represent atelectasis with tiny bilateral pleural effusions. No pneumothorax. ADDITIONAL FINDINGS: No significant additional findings. IMPRESSION: 1. Stable mild cardiomegaly with bibasilar atelectasis and tiny pleural effusions. Signer Name: Shawnee Carias MD Signed: 04/13/2021 12:11 PM Workstation Name: [id number] DUPLEX DOPPLER LOWER EXTREMITY VEINS, BILATERAL INDICATION / CLINICAL INFORMATION: lower ext cramping, cp. TECHNIQUE: Duplex doppler imaging was performed through the veins of both lower extremities using venous compression and other maneuvers. COMPARISON: None available. FINDINGS: RIGHT COMMON FEMORAL VEIN: Negative. RIGHT FEMORAL VEIN: Negative. RIGHT POPLITEAL VEIN: Negative. RIGHT CALF VEINS: Negative. LEFT COMMON FEMORAL VEIN: Negative. LEFT FEMORAL VEIN: Negative. LEFT POPLITEAL VEIN: Negative. LEFT CALF VEINS: Negative. ADDITIONAL FINDINGS: Mild bilateral lower extremity edema. IMPRESSION: 1. No sonographic evidence for DVT in either lower extremity. Signer Name: Shawnee Carias MD Signed: 04/13/2021 1:38 PM Workstation Name: [id number] CHEST 1 VIEW 04/13/2021 12:37 PM INDICATION / CLINICAL INFORMATION: GI Bleed. COMPARISON: 03/24/20 FINDINGS: SUPPORT DEVICES: None. HEART / MEDIASTINUM: He art is mildly enlarged and stable. LUNGS / PLEURA: Mild bibasilar densities may represent atelectasis with tiny bilateral pleural effusions. No pneumothorax. ADDITIONAL FINDINGS: No significant additional findings. IMPRESSION: 1. Stable mild cardiomegaly with bibasilar atelectasis and tiny pleural effusions. Signer Name: Shawnee Carias MD Signed: 04/13/2021 12:11 PM Workstation Name: [id number] Critical care attestation.: If time is entered above; I have spent that time in minutes in the direct care of this critically ill patient, excluding procedure time. ED Disposition Clinical Impression: Acute headache, Acute chest pain, Leg pain, Hypokalemia, Hypomagnesemia Disposition: 09 ADMITTED INPATIENT Is pt being admited?: Yes Does the pt Need Aspirin: No Condition: Good Heart Score - HEART Score History: Moderately suspicious EKG: Non-specific Age: > 65 Risk factors: 1-2 risk factors Troponin: 1-3x normal limit HEART Score: 6 - EKG Read Time Time EKG Completed: 11:53 EKG Read Time: 11:53 - Critical Actions Critical Actions: 4-6 pts:12-16.6% risk of adverse cardiac event. Should be admitted
[2021-04-13] MEDS ORDERED: diphenhydrAMINE 50 MG/ML VIAL IV ONE (13:21)
[2021-04-13 13:33] LABS: Hematocrit 28.2 % (35.5-45.6); Hemoglobin 8.7 gm/dl (11.8-15.2); Mean Corpuscular HGB Conc 31 % (32-34); Mean Corpuscular Volume 78 fl (84-94); Platelet Count 572 K/mm3 (140-440)
[2021-04-13 13:35] LABS: Red Cell Distribution Width 26.4 % (13.2-15.2)
[2021-04-13 13:38] LABS: INR 1.24 (0.87-1.13)
[2021-04-13 13:39] LABS: Partial Thromboplastin Time 34.1 Sec. (24.2-36.6)
[2021-04-13 13:50] LABS: Alanine Aminotransferase 145 units/L (7-56); Albumin 2.9 g/dL (3.9-5); Blood Urea Nitrogen 8 mg/dL (9-20); Hemolysis Index 10
[2021-04-13 13:59] LABS: BUN/Creatinine Ratio 11
[2021-04-13] MEDS ORDERED: POTASSIUM CHLORIDE ER 20 MEQ TAB PO ONE ×2 (14:40→21:30)
[2021-04-13] MEDS ORDERED: MAGNESIUM OXIDE 400 MG TAB PO STA (14:40)
--- NOTE | 2021-04-13 14:43 | Vascular Lab Report ---
DUPLEX DOPPLER LOWER EXTREMITY VEINS, BILATERAL INDICATION / CLINICAL INFORMATION: lower ext cramping, cp. TECHNIQUE: Duplex doppler imaging was performed through the veins of both lower extremities using ritu ous compression and other maneuvers. COMPARISON: None available. FINDINGS: RIGHT COMMON FEMORAL VEIN: Negative. RIGHT FEMORAL VEIN: Negative. RIGHT POPLITEAL VEIN: Negative. RIGHT CALF VEINS: Negative. LEFT COMMON FEMORAL VEIN: Negative. LEFT FEMORAL VEIN: Negative. LEFT POPLITEAL VEIN: Negative. LEFT CALF VEINS: Negative. ADDITIONAL FINDINGS: Mild bilateral lower extremity edema. IMPRESSION: 1. No sonographic evidence for DVT in either lower extremity. Signer Name: Shawnee Carias MD Signed: 04/13/2021 2:38 PM Workstation Name: [id number]
[2021-04-13 14:52] LABS: Total Cells Counted 100
[2021-04-13 14:53] LABS: Macrocytosis 1+; Ovalocytes 1+; Poikilocytosis 1+; Tear Drop Cells 1+
[2021-04-13 14:54] LABS: Anisocytosis 2+; Hypochromasia 1+; Large Platelets Few; Platelet Estimate Consistent w Auto
--- NOTE | 2021-04-13 15:06 | Cat Scan Report ---
NONENHANCED CT SCAN OF THE HEAD: INDICATION / CLINICAL INFORMATION: 65 years Male; headache weakness. TECHNIQUE: Routine CT head without contrast. All CT scans at this location are performed using CT dos e reduction for ALARA by means of automated exposure control. COMPARISON: CT scan of the head from 02/14/2019 FINDINGS: BRAIN / INTRACRANIAL CONTENTS: Since the last CT scan, extracerebral space on the right side has incr eased due to 3 mm thick subacute chronic subdural hematoma. Cortical sulci are not effaced. No mass e ffect over the ventricular system. No significant white matter abnormality. CRANIOCERVICAL JUNCTION: No significant abnormality. ORBITS: No significant abnormality of visualized orbits. SINUSES / MASTOIDS: No significant abnormality of the visualized paranasal sinuses or mastoid air danny ls. ADDITIONAL FINDINGS: None. IMPRESSION: No intracerebral hemorrhage or acute parenchymal lesion 3 mm sized subacute or chronic subdural collection over the right cerebral hemisphere Signer Name: Nichelle Clement MD Signed: 04/13/2021 3:02 PM Workstation Name: [id number]
[2021-04-13] MEDS ORDERED: ASPIRIN 81 MG TAB CHEW PO ONE ×2 (15:09→21:30)
[2021-04-13] MEDS ORDERED: ACETAMINOPHEN 325 MG TAB PO PRN ×2 (17:11→18:00)
--- NOTE | 2021-04-13 17:17 | History and Physical Report ---
History of Present Illness Chief complaint: My chest hurts History of present illness: 65 YO Male with DM, OA, Symptomatic Anemia with suspected ITP, Nicotine Dependence, HCV, GERD, PSA presents to ED for evaluation. Pt reports "I have chest pain". Pt states that he has experienced chest pain over the past 2 days with persistent or worsening symptoms over the same timeframe. Patient states that pain is 6/10, intermittent, not worsened with exertion, not relieved with rest. Of note the patient was discharged home on 04/12/2021 and was hospitalized during the onset of chest pain. Patient transported [facility] via private vehicle for further care and evaluation of the aforementioned symptoms. The patient was seen and evaluated in the emergency department. All lab and imaging studies reviewed. Cardiology team consulted in ED prior to my evaluation. Patient found to have elevated troponin which is consistent with NSTEMI. Patient found to have elevated D-dimer. VQ scan ordered and revealed low probability of PE. Patient admitted to telemetry and initiated on ACS protocol. Patient has fever, chills, palpitation, adductive cough, skin rash, recent contact, known exposure to COVID-19. Prior admission on 04/09/2021 reviewed. All medication listed at time of admission has been reconciled. Advanced care pl anning conducted in ED. Past History Past Medical History: anemia, arthritis, diabetes, GERD, hepatitis Past Surgical History: No surgical history, Other (Reviewed) Social history: single. denies: smoking, alcohol abuse Family history: hypertension Medications and Allergies Allergies Allergy/AdvReac Type Severity Reaction Status Date / Time No Known Allergies Allergy Verified 04/13/21 11:51 Home Medications Medication Instructions Recorded Confirmed Last Taken Type Ferrous Gluconate [Ferrous 324 mg PO QDAY #30 04/12/21 Unknown Rx Gluconate 324 MG] Pantoprazole [Protonix] 40 mg PO BID #60 tablet 04/12/21 Unknown Rx metFORMIN [Glucophage] 500 mg PO QDAY #30 tab 04/12/21 Unknown Rx Active Meds: Active Medications Acetaminophen (Acetaminophen 325 Mg Tab) 650 mg PO Q4H PRN PRN Reason: Pain MILD(1-3)/Fever >100.5/DURÁN Albuterol (Albuterol 2.5 Mg/3 Ml Nebu) 2.5 mg IH Q4HRT PRN PRN Reason: Shortness Of Breath Ferrous Gluconate (Ferrous Gluconate 324 Mg Tab) 324 mg PO QDAY LUCIAN Hydromorphone HCl (Hydromorphone 1 Mg/1 Ml Inj) 0.5 mg IV Q23H PRN PRN Reason: Pain , Severe (7-10) Ondansetron HCl (Ondansetron 4 Mg/2 Ml Inj) 4 mg IV Q8H PRN PRN Reason: Nausea And Vomiting Oxycodone/Acetaminophen (Oxycodone /Acetaminophen 5-325mg Tab) 1 tab PO Q16H PRN PRN Reason: Pain, Moderate (4-6) Pantoprazole Sodium (Pantoprazole 40 Mg Tab) 40 mg PO BID LUCIAN Sodium Chloride (Sodium Chloride 0.9% 10 Ml Flush Syringe) 10 ml IV BID LUCIAN Sodium Chloride (Sodium Chloride 0.9% 10 Ml Flush Syringe) 10 ml IV PRN PRN PRN Reason: LINE FLUSH Review of Systems Constitutional: no weight loss, no weight gain, no chills, no sweats Ears, nose, mouth and throat: no ear pain, no decreased hearing, no nasal congestion Cardiovascular: chest pain, no orthopnea, no palpitations, no rapid/irregular heart beat, no edema Respiratory: no cough, no cough with sputum, no excessive sputum, no hemoptysis, no shortness of breath Gastrointestinal: no abdominal pain, no nausea, no vomiting, no constipation, no hematemesis Genitourinary Male: no hematuria, no flank pain, no discharge, no urinary frequ ency, no nocturia Rectal: no pain, no incontinence, no bleeding Musculoskeletal: no neck pain, no arm numbness/tingling, no leg numbness/tingling Integumentary: no pruritis, no redness, no sores, no wounds Neurological: no transient paralysis, no weakness, no parathesias, no tingling, no seizures Psychiatric: no anxiety, no memory loss, no sleep disturbances, no hypersomnia, no change in appetite, no change in libido, no suicidal ideation Endocrine: no cold intolerance, no heat intolerance, no excessive thirst, no polydipsia, no nocturia Hematologic/Lymphatic: no easy bruising, no easy bleeding Allergic/Immunologic: no urticaria, no allergic rhinitis, no wheezing Exam - Constitutional Vitals: Temp Pulse Resp BP Pulse Ox 98.2 F 100 H 18 117/68 98 04/13/21 11:57 04/13/21 11:57 04/13/21 11:57 04/13/21 11:57 04/13/21 16:15 General appearance: Present: cachectic - EENT Eyes: Present: PERRL ENT: hearing intact, clear oral mucosa - Neck Neck: Present: supple, normal ROM - Respiratory Respiratory effort: normal Respiratory: bilateral: CTA - Cardiovascular Heart Sounds: Present: S1 & S2. Absent: rub, click - Extremities Extremities: pulses symmetrical, No edema Peripheral Pulses: within normal limits - Abdominal General gastrointestinal: Present: soft, non-tender, non-distended, normal bowel sounds Male genitourinary: Present: normal - Integumentary Integumentary: Present: clear, warm, dry - Musculoskeletal Musculoskeletal: gait normal, strength equal bilaterally - Psychiatric Psychiatric: appropriate mood/affect, intact judgment & insight - Neurologic Neurologic: CNII-XII intact, moves all extremities HEART Score - HEART Score EKG: Non-specific Age: > 65 Risk factors: 1-2 risk factors Troponin: Troponin T 0.031 ng/mL (0.00-0.029) H D 04/13/21 12:58 Troponin: 1-3x normal limit - Critical Actions Critical Actions: 4-6 pts:12-16.6% risk of adverse cardiac event. Should be admitted Results - Labs CBC & Chem 7: 04/13/21 12:58 04/13/21 12:58 Labs: Abnormal lab results 04/13/21 04/13/21 04/13/21 Range/Units 12:58 12:58 12:58 RBC 3.60 L (3.65-5.03) M/mm3 Hgb 8.7 L (11.8-15.2) gm/dl Hct 28.2 L (35.5-45.6) % MCV 78 L (84-94) fl MCH 24 L (28-32) pg MCHC 31 L (32-34) % RDW 26.4 H (13.2-15.2) % Plt Count 572 H (140-440) K/mm3 Seg Neuts % (Manual) 83.0 H (40.0-70.0) % Lymphocytes % (Manual) 10.0 L (13.4-35.0) % Lymphocytes # (Manual) 0.6 L (1.2-5.4) K/mm3 PT 16.9 H (12.2-14.9) Sec. INR 1.24 H (0.87-1.13) D-Dimer (0-234) ng/mlDDU Potassium 3.4 L (3.6-5.0) mmol/L BUN 8 L (9-20) mg/dL Creatinine 0.7 L (0.8-1.3) mg/dL Glucose 147 H (75-100) mg/dL Calcium 8.0 L (8.4-10.2) mg/dL Magnesium 1.60 L (1.7-2.3) mg/dL Total Bilirubin 1.80 H (0.1-1.2) mg/dL ALT 145 H (7-56) units/L Troponin T (0.00-0.029) ng/mL NT-Pro-B Natriuret Pep (0-900) pg/mL Total Protein 4.8 L D (6.3-8.2) g/dL Albumin 2.9 L (3.9-5) g/dL 04/13/21 04/13/21 04/13/21 Range/Units 12:58 12:58 13:40 RBC (3.65-5.03) M/mm3 Hgb (11.8-15.2) gm/dl Hct (35.5-45.6) % MCV (84-94) fl MCH (28-32) pg MCHC (32-34) % RDW (13.2-15.2) % Plt Count (140-440) K/mm3 Seg Neuts % (Manual) (40.0-70.0) % Lymphocytes % (Manual) (13.4-35.0) % Lymphocytes # (Manual) (1.2-5.4) K/mm3 PT (12.2-14.9) Sec. INR (0.87-1.13) D-Dimer 3115.98 H (0-234) ng/mlDDU Potassium (3.6-5.0) mmol/L BUN (9-20) mg/dL Creatinine (0.8-1.3) mg/dL Glucose (75-100) mg/dL Calcium (8.4-10.2) mg/dL Magnesium (1.7-2.3) mg/dL Total Bilirubin (0.1-1.2) mg/dL ALT (7-56) units/L Troponin T 0.031 H D (0.00-0.029) ng/mL NT-Pro-B Natriuret Pep 993.7 H (0-900) pg/mL Total Protein (6.3-8.2) g/dL Albumin (3.9-5) g/dL Assessment and Plan - Patient Problems (1) NSTEMI (non-ST elevated myocardial infarction) Current Visit: Yes Status: Acute Plan to address problem: ACS protocol: Serial cardiac enzymes, EKG, remote telemetry monitoring, cardiology team consulted in ED. Further care and evaluation as per cardiology team recommendations. (2) Anemia Current Visit: Yes Status: Acute Plan to address problem: Hemoglobin stable. No transfusion at this time. Outpatient hematology follow- up. (3) Malnutrition Current Visit: Yes Status: Acute Qualifiers: Malnutrition type: protein-calorie malnutrition Protein-calorie malnutrition severity: moderate Qualified Code(s): E44.0 - Moderate protein- calorie malnutrition Plan to address problem: Increase protein intake, dietary supplementation. (4) Nicotine dependence Current Visit: Yes Status: Acute Qualifiers: Nicotine product type: cigarettes Substance use status: in withdrawal Qualified Code(s): F17.213 - Nicotine dependence, cigarettes, with withdrawal Plan to address problem: Smoking cessation counseling, supportive care, behavior change counseling, +15 minutes (5) GERD (gastroesophageal reflux disease) Current Visit: No Status: Chronic Qualifiers: Esophagitis presence: without esophagitis Qualified Code(s): K21.9 - Gastro-esophageal reflux disease without esophagitis Plan to address problem: PPI therapy, supportive care. Outpatient GI follow-up. (6) DVT prophylaxis Current Visit: Yes Status: Acute Plan to address problem: SCD to bilateral lower extremities while in bed, patient is ambulatory (7) Advance care planning Current Visit: Yes Status: Acute Plan to address problem: Disease education conducted, care plan discussed, diagnoses discussed, prognosis discussed, patient is full code. Patient acknowledges understanding agreement with care plan, +30 minutes.
[2021-04-13] MEDS ORDERED: ALBUTEROL 2.5 MG/3 ML NEBU IH PRN (18:00)
[2021-04-13] MEDS ORDERED: HYDROmorphone 1 MG/1 ML INJ IV PRN (18:00)
[2021-04-13] MEDS ORDERED: ONDANSETRON 4 MG/2 ML INJ IV PRN (18:00)
[2021-04-13] MEDS ORDERED: NITROGLYCERIN 0.4 MG TAB SUBL SL PRN (18:00)
[2021-04-13] MEDS ORDERED: traMADol 50 MG TAB PO PRN (18:00)
--- NOTE | 2021-04-13 18:04 | Nuclear Medicine Report ---
NUCLEAR MEDICINE PERFUSION LUNG SCAN INDICATION / CLINICAL INFORMATION: cp + elevated d dimer. TECHNIQUE: 5.1 mCi of Tc-99m MAA were given by IV. COMPARISON: Chest radiograph dated 04/13/21. FINDINGS: PERFUSION: No significant perfusion defects. Minimal subsegmental area of decreased perfusion in the right midlung. ADDITIONAL FINDINGS: None. IMPRESSION: 1. Low probability for pulmonary embolism. Signer Name: Shawnee Carias MD Signed: 04/13/2021 6:00 PM Workstation Name: [id number]
[2021-04-13] MEDS: PANTOPRAZOLE 40 MG TAB PO SCH (21:11)
[2021-04-13] MEDS ORDERED: MAGNESIUM OXIDE 400 MG TAB PO ONE (21:30)
[2021-04-14] MEDS: oxyCODONE /ACETAMINOPHEN 5-325MG TAB PO PRN ×2 (00:48→16:22)
[2021-04-14 06:20] LABS: Blood Urea Nitrogen 9 mg/dL (9-20); Calcium 7.3 mg/dL (8.4-10.2); Hemolysis Index 0
[2021-04-14 06:21] LABS: BUN/Creatinine Ratio 15
--- NOTE | 2021-04-14 07:55 | Progress Note ---
Assessment and Plan Assessment and plan: #NSTEMI -troponin downtrending -Cardiology consulted, assistance appreciated #Elevated d-dimer -V/Q scan low probability for PE -duplex of BLE negative for DVT #Microcytic anemia -Chronic -recent history of GI bleed, will follow with GI outpatient for pillcam -Continue iron supplementation -will transfuse for hemoglobin less than 7 #Elevated t.bilirubin #Elevated liver enzymes -chronic t.bilirubin elevation since 02/2021 -AST/ALT downtrending from recent ED visit, likely secondary to volume depletion from diarrhea -will continue to monitor #Moderate protein calorie malnutrition -albumin 2.9 -Nutrition consult #Type 2 diabetes -Takes Metformin outpatient -We will start sliding scale and Accu-Cheks while inpatient -Goal glucose [id number] #GERD -continue protonix 40mg BID #Hypokalemia #Hypomagnesemia -will replete and monitor History Interval history: No acute events overnight. Patient reports feeling weak for the last week. Has noticed no blood in his stool or melena. Currently chest pain-free. No other complaints at this time. Hospitalist Physical - Physical exam Narrative exam: GENERAL: Well-developed well-nourished. In no acute distress. HEENT: Normocephalic. Atraumatic. NECK: Supple. CHEST/LUNGS: CTAB on room air HEART/CARDIOVASCULAR: RRR. No murmur, rubs or gallops appreciated. ABDOMEN: +BS. NT/ND. SKIN: No rashes noted. NEURO: No focal motor deficit. Follows all commands. MUSCULOSKELETAL: No joint effusion EXTREMITIES: No cyanosis, clubbing or edema. PSYCH: Cooperative. - Constitutional Vitals: Temp Pulse Resp BP Pulse Ox 98.2 F 100 H 16 105/54 97 04/14/21 04:30 04/14/21 04:30 04/14/21 04:30 04/14/21 04:30 04/14/21 04:30 General appearance: Present: cachectic HEART Score - HEART Score EKG: Non-specific Age: > 65 Risk factors: 1-2 risk factors Troponin: Troponin T 0.029 ng/mL (0.00-0.029) 04/13/21 22:13 Troponin: 1-3x normal limit - Critical Actions Critical Actions: 4-6 pts:12-16.6% risk of adverse cardiac event. Should be admitted Results - Labs CBC & Chem 7: 04/13/21 12:58 04/14/21 05:30 Labs: Laboratory Last Values WBC 5.8 K/mm3 (4.5-11.0) 04/13/21 12:58 RBC 3.60 M/mm3 (3.65-5.03) L 04/13/21 12:58 Hgb 8.7 gm/dl (11.8-15.2) L 04/13/21 12:58 Hct 28.2 % (35.5-45.6) L 04/13/21 12:58 MCV 78 fl (84-94) L 04/13/21 12:58 MCH 24 pg (28-32) L 04/13/21 12:58 MCHC 31 % (32-34) L 04/13/21 12:58 RDW 26.4 % (13.2-15.2) H 04/13/21 12:58 Plt Count 572 K/mm3 (140-440) H 04/13/21 12:58 Add Manual Diff Complete 04/13/21 12:58 Total Counted 100 04/13/21 12:58 Seg Neuts % (Manual) 83.0 % (40.0-70.0) H 04/13/21 12:58 Band Neutrophils % 0 % 04/13/21 12:58 Lymphocytes % (Manual) 10.0 % (13.4-35.0) L 04/13/21 12:58 Reactive Lymphs % (Man) 0 % 04/13/21 12:58 Monocytes % (Manual) 5.0 % (0.0-7.3) 04/13/21 12:58 Eosinophils % (Manual) 1.0 % (0.0-4.3) 04/13/21 12:58 Basophils % (Manual) 1.0 % (0.0-1.8) 04/13/21 12:58 Metamyelocytes % 0 % 04/13/21 12:58 Myelocytes % 0 % 04/13/21 12:58 Promyelocytes % 0 % 04/13/21 12:58 Blast Cells % 0 % 04/13/21 12:58 Nucleated RBC % Not Reportable 04/13/21 12:58 Seg Neutrophils # Man 4.8 K/mm3 (1.8-7.7) 04/13/21 12:58 Band Neutrophils # 0.0 K/mm3 04/13/21 12:58 Lymphocytes # (Manual) 0.6 K/mm3 (1.2-5.4) L 04/13/21 12:58 Abs React Lymphs (Man) 0.0 K/mm3 04/13/21 12:58 Monocytes # (Manual) 0.3 K/mm3 (0.0-0.8) 04/13/21 12:58 Eosinophils # (Manual) 0.1 K/mm3 (0.0-0.4) 04/13/21 12:58 Basophils # (Manual) 0.1 K/mm3 (0.0-0.1) 04/13/21 12:58 Metamyelocytes # 0.0 K/mm3 04/13/21 12:58 Myelocytes # 0.0 K/mm3 04/13/21 12:58 Promyelocytes # 0.0 K/mm3 04/13/21 12:58 Blast Cells # 0.0 K/mm3 04/13/21 12:58 WBC Morphology Not Reportable 04/13/21 12:58 Hypersegmented Neuts Not Reportable 04/13/21 12:58 Hyposegmented Neuts Not Reportable 04/13/21 12:58 Hypogranular Neuts Not Reportable 04/13/21 12:58 Smudge Cells Not Reportable 04/13/21 12:58 Toxic Granulation Not Reportable 04/13/21 12:58 Toxic Vacuolation Not Reportable 04/13/21 12:58 Dohle Bodies Not Reportable 04/13/21 12:58 Pelger-Huet Anomaly Not Reportable 04/13/21 12:58 Katia Rods Not Reportable 04/13/21 12:58 Platelet Estimate Consistent w auto 04/13/21 12:58 Clumped Platelets Not Reportable 04/13/21 12:58 Plt Clumps, EDTA Not Reportable 04/13/21 12:58 Large Platelets Few 04/13/21 12:58 Giant Platelets Not Reportable 04/13/21 12:58 Platelet Satelliting Not Reportable 04/13/21 12:58 Plt Morphology Comment Not Reportable 04/13/21 12:58 RBC Morphology Not Reportable 04/13/21 12:58 Dimorphic RBCs Not Reportable 04/13/21 12:58 Polychromasia 1+ 04/13/21 12:58 Hypochromasia 1+ 04/13/21 12:58 Poikilocytosis 1+ 04/13/21 12:58 Anisocytosis 2+ 04/13/21 12:58 Microcytosis Not Reportable 04/13/21 12:58 Macrocytosis 1+ 04/13/21 12:58 Spherocytes Not Reportable 04/13/21 12:58 Pappenheimer Bodies Not Reportable 04/13/21 12:58 Sickle Cells Not Reportable 04/13/21 12:58 Target Cells Not Reportable 04/13/21 12:58 Tear Drop Cells 1+ 04/13/21 12:58 Ovalocytes 1+ 04/13/21 12:58 Helmet Cells Not Reportable 04/13/21 12:58 Saurez-Kenedy Bodies Not Reportable 04/13/21 12:58 China Rings Not Reportable 04/13/21 12:58 Luke Cells Not Reportable 04/13/21 12:58 Bite Cells Not Reportable 04/13/21 12:58 Crenated Cell Not Reportable 04/13/21 12:58 Elliptocytes 1+ 04/13/21 12:58 Acanthocytes (Spur) Not Reportable 04/13/21 12:58 Rouleaux Not Reportable 04/13/21 12:58 Hemoglobin C Crystals Not Reportable 04/13/21 12:58 Schistocytes Not Reportable 04/13/21 12:58 Malaria parasites Not Reportable 04/13/21 12:58 Jl Bodies Not Reportable 04/13/21 12:58 Hem Pathologist Commnt No 04/13/21 12:58 PT 16.9 Sec. (12.2-14.9) H 04/13/21 12:58 INR 1.24 (0.87-1.13) H 04/13/21 12:58 APTT 34.1 Sec. (24.2-36.6) 04/13/21 12:58 D-Dimer 3115.98 ng/mlDDU (0-234) H 04/13/21 12:58 Sodium 137 mmol/L (137-145) 04/14/21 05:30 Potassium 3.6 mmol/L (3.6-5.0) 04/14/21 05:30 Chloride 106.7 mmol/L (98-107) 04/14/21 05:30 Carbon Dioxide 23 mmol/L (22-30) 04/14/21 05:30 Anion Gap 11 mmol/L 04/14/21 05:30 BUN 9 mg/dL (9-20) 04/14/21 05:30 Creatinine 0.6 mg/dL (0.8-1.3) L 04/14/21 05:30 Estimated GFR > 60 ml/min 04/14/21 05:30 BUN/Creatinine Ratio 15 % 04/14/21 05:30 Glucose 255 mg/dL (75-100) H 04/14/21 05:30 Calcium 7.3 mg/dL (8.4-10.2) L 04/14/21 05:30 Magnesium 1.60 mg/dL (1.7-2.3) L 04/13/21 12:58 Total Bilirubin 1.80 mg/dL (0.1-1.2) H 04/13/21 12:58 AST 40 units/L (5-40) 04/13/21 12:58 ALT 145 units/L (7-56) H 04/13/21 12:58 Alkaline Phosphatase 74 units/L (35-129) 04/13/21 12:58 Total Creatine Kinase 127 units/L (55-170) 04/13/21 12:58 Troponin T 0.029 ng/mL (0.00-0.029) 04/13/21 22:13 NT-Pro-B Natriuret Pep 993.7 pg/mL (0-900) H 04/13/21 13:40 Total Protein 4.8 g/dL (6.3-8.2) L D 04/13/21 12:58 Albumin 2.9 g/dL (3.9-5) L 04/13/21 12:58 Albumin/Globulin Ratio 1.5 % 04/13/21 12:58 Blood Type A POSITIVE 04/13/21 12:58 Antibody Screen TNR 04/13/21 12:58 JYOTI Antibody Screen Negative 04/13/21 12:58 Parker/IV: Voiding Method Urinal Active Medications - Current Medications Current Medications: Generic Name Dose Route Start Last Admin Trade Name Freq PRN Reason Stop Dose Admin Acetaminophen 650 mg 04/13/21 18:00 Acetaminophen 325 Mg Tab PO Q6H PRN Pain, Mild (1-3) Albuterol 2.5 mg 04/13/21 18:00 Albuterol 2.5 Mg/3 Ml Nebu IH Q4HRT PRN Shortness Of Breath Atorvastatin Calcium 40 mg 04/13/21 22:00 04/13/21 21:11 Atorvastatin 40 Mg Tab PO 40 mg QHS LUCIAN Administration Ferrous Gluconate 324 mg 04/14/21 10:00 Ferrous Gluconate 324 Mg Tab PO QDAY LUCIAN Hydromorphone HCl 0.5 mg 04/13/21 18:00 Hydromorphone 1 Mg/1 Ml Inj IV Q23H PRN Pain , Severe (7-10) Nitroglycerin 0.4 mg 04/13/21 18:00 Nitroglycerin 0.4 Mg Tab Subl SL Q5M PRN Chest Pain Ondansetron HCl 4 mg 04/13/21 18:00 Ondansetron 4 Mg/2 Ml Inj IV Q8H PRN Nausea And Vomiting Oxycodone/Acetaminophen 1 tab 04/13/21 18:00 04/14/21 00:48 Oxycodone /Acetaminophen 5-325mg Tab PO 1 tab Q16H PRN Administration Pain, Moderate (4-6) Pantoprazole Sodium 40 mg 04/13/21 22:00 04/13/21 21:11 Pantoprazole 40 Mg Tab PO 40 mg BID LUCIAN Administration Sodium Chloride 10 ml 04/13/21 22:00 04/13/21 21:12 Sodium Chloride 0.9% 10 Ml Flush Syringe IV 10 ml BID LUCIAN Administration Sodium Chloride 10 ml 04/13/21 18:00 Sodium Chloride 0.9% 10 Ml Flush Syringe IV PRN PRN LINE FLUSH Tramadol HCl 50 mg 04/13/21 18:00 Tramadol 50 Mg Tab PO Q6H PRN Pain, Moderate (4-6)
[2021-04-14] MEDS: PANTOPRAZOLE 40 MG TAB PO SCH ×2 (11:21→22:58)
[2021-04-14] MEDS: FERROUS GLUCONATE 324 MG TAB PO SCH (11:22)
--- NOTE | 2021-04-14 12:54 | Consultation ---
History of Present Illness Consult date: 04/14/21 Consult reason: chest pain History of present illness: 65 YO Male with h/o DM, OA, severe chronic anemia, Nicotine Dependence, HCV, GERD, PSA presented to ED with chest pain. He reports he has experienced chest pain over the past 2 days with persistent or worsening symptoms. He describes the pain as a sharp sensation in the middle of chest with no radiation. There is no exertional component to his pain but he does report he has associated dyspnea with pain. Patient was found to have borderline troponin elevation. Patient was also found to have elevated D-dimer. VQ scan ordered and revealed low probability of PE. Patient admitted to telemetry and initiated on ACS protocol. Patient has fever, chills, palpitation, adductive cough, skin rash, recent contact, known exposure to COVID-19. Prior admission on 04/09/2021 reviewed. Patient has known severe chronic anemia. He has previously had endoscopy and colonoscopy with GI. Outpatient capsule endoscopy is planned. ECG reveals SR with LAFB and poor precordial R wave transition. Past History Past Medical History: anemia, arthritis, diabetes, GERD, hepatitis Past Surgical History: No surgical history, Other (Reviewed) Social history: single. denies: smoking, alcohol abuse Family history: hypertension Medications and Allergies Allergies Allergy/AdvReac Type Severity Reaction Status Date / Time No Known Allergies Allergy Verified 04/13/21 11:51 Home Medications Medication Instructions Recorded Confirmed Last Taken Type Ferrous Gluconate [Ferrous 324 mg PO QDAY #30 04/12/21 Unknown Rx Gluconate 324 MG] Pantoprazole [Protonix] 40 mg PO BID #60 tablet 04/12/21 Unknown Rx metFORMIN [Glucophage] 500 mg PO QDAY #30 tab 04/12/21 Unknown Rx Active Meds: Active Medications Acetaminophen (Acetaminophen 325 Mg Tab) 650 mg PO Q6H PRN PRN Reason: Pain, Mild (1-3) Albuterol (Albuterol 2.5 Mg/3 Ml Nebu) 2.5 mg IH Q4HRT PRN PRN Reason: Shortness Of Breath Atorvastatin Calcium (Atorvastatin 40 Mg Tab) 40 mg PO QHS [facility] Last Admin: 04/13/21 21:11 Dose: 40 mg Dextrose (Dextrose 50% In Water (25gm) 50 Ml Syringe) 50 ml IV Q30MIN PRN; Protocol PRN Reason: Hypoglycemia Ferrous Gluconate (Ferrous Gluconate 324 Mg Tab) 324 mg PO QDAY [facility] Heparin Sodium (Porcine) (Heparin 5,000 Unit/1 Ml Vial) 5,000 unit SUB-Q Q8HR [facility] Hydromorphone HCl (Hydromorphone 1 Mg/1 Ml Inj) 0.5 mg IV Q23H PRN PRN Reason: Pain , Severe (7-10) Insulin Human Lispro (Insulin Lispro 100 Unit/Ml) 0 unit SUB-Q ACHS LUCIAN; Protocol Nitroglycerin (Nitroglycerin 0.4 Mg Tab Subl) 0.4 mg SL Q5M PRN PRN Reason: Chest Pain Ondansetron HCl (Ondansetron 4 Mg/2 Ml Inj) 4 mg IV Q8H PRN PRN Reason: Nausea And Vomiting Oxycodone/Acetaminophen (Oxycodone /Acetaminophen 5-325mg Tab) 1 tab PO Q16H PRN PRN Reason: Pain, Moderate (4-6) Last Admin: 04/14/21 00:48 Dose: 1 tab Pantoprazole Sodium (Pantoprazole 40 Mg Tab) 40 mg PO BID [facility] Last Admin: 04/13/21 21:11 Dose: 40 mg Sodium Chloride (Sodium Chloride 0.9% 10 Ml Flush Syringe) 10 ml IV BID [facility] Last Admin: 04/13/21 21:12 Dose: 10 ml Sodium Chloride (Sodium Chloride 0.9% 10 Ml Flush Syringe) 10 ml IV PRN PRN PRN Reason: LINE FLUSH Tramadol HCl (Tramadol 50 Mg Tab) 50 mg PO Q6H PRN PRN Reason: Pain, Moderate (4-6) Review of Systems All systems: negative (per hpi) Physical Examination Vital Signs Temp Pulse Resp BP Pulse Ox 98.2 F 100 H 18 117/68 98 04/13/21 11:57 04/13/21 11:57 04/13/21 11:57 04/13/21 11:57 04/13/21 11:57 General appearance: no acute distress HEENT: Positive: PERRL Neck: Positive: neck supple Cardiac: Positive: Reg Rate and Rhythm. Negative: Audible Murmur Lungs: Positive: clear to auscultation Abdomen: Positive: Soft, Active Bowel Sounds Extremities: Absent: edema Results 04/13/21 12:58 04/14/21 05:30 Cardiac Enzymes 04/13/21 Range/Units 12:58 AST 40 (5-40) units/L Coagulation 04/13/21 Range/Units 12:58 PT 16.9 H (12.2-14.9) Sec. INR 1.24 H (0.87-1.13) APTT 34.1 (24.2-36.6) Sec. CBC 04/13/21 Range/Units 12:58 WBC 5.8 (4.5-11.0) K/mm3 RBC 3.60 L (3.65-5.03) M/mm3 Hgb 8.7 L (11.8-15.2) gm/dl Hct 28.2 L (35.5-45.6) % Plt Count 572 H (140-440) K/mm3 Comprehensive Metabolic Panel 04/13/21 04/14/21 Range/Units 12:58 05:30 Sodium 137 137 (137-145) mmol/L Potassium 3.4 L 3.6 (3.6-5.0) mmol/L Chloride 105.6 106.7 (98-107) mmol/L Carbon Dioxide 22 23 (22-30) mmol/L BUN 8 L 9 (9-20) mg/dL Creatinine 0.7 L 0.6 L (0.8-1.3) mg/dL Glucose 147 H 255 H (75-100) mg/dL Calcium 8.0 L 7.3 L (8.4-10.2) mg/dL AST 40 (5-40) units/L ALT 145 H (7-56) units/L Alkaline Phosphatase 74 (35-129) units/L Total Protein 4.8 L D (6.3-8.2) g/dL Albumin 2.9 L (3.9-5) g/dL Assessment and Plan 1. Chest pain and borderline troponin in patient with known severe chronic anemia. Could be related to cardaic supply-demand mismatch. 2. Chronic Anemia. Pt transfused during recent hospitalization. Hemoglobin stable from recent hospitalization Recommend: MPI tomorrow. If he has significant perfusion abnormality and coronary angiogram/revascularization is needed, he will likely need repeat GI evaluation.
[2021-04-14] MEDS ORDERED: DEXTROSE 50% IN WATER (25GM) 50 ML SYRINGE IV PRN (13:00)
--- NOTE | 2021-04-14 14:34 | Electrocardiograph Report ---
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
--- NOTE | 2021-04-14 14:41 | Electrocardiograph Report ---
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
--- NOTE | 2021-04-14 14:42 | Electrocardiograph Report ---
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
[2021-04-14] MEDS: HEPARIN 5,000 UNIT/1 ML VIAL SUB-Q SCH ×2 (15:15→22:57)
[2021-04-14] MEDS: INSULIN LISPRO 100 UNIT/ML SUB-Q SCH ×2 (16:25→22:57)
[2021-04-14 17:39] LABS: Amphetamine Screen,Urine Negative; Benzodiazepines Screen,Urine Negative; Cannabinoid Screen,Urine Negative; Cocaine Screen,Urine Negative; Methadone Screen,Urine Negative; Opiate Screen,Urine Negative
[2021-04-15 06:50] LABS: Alanine Aminotransferase 83 units/L (7-56); Albumin 2.5 g/dL (3.9-5); Blood Urea Nitrogen 6 mg/dL (9-20); Calcium 7.4 mg/dL (8.4-10.2); Hemolysis Index 7
[2021-04-15 06:51] LABS: BUN/Creatinine Ratio 12
[2021-04-15] MEDS: HEPARIN 5,000 UNIT/1 ML VIAL SUB-Q SCH ×3 (06:55→22:09)
[2021-04-15] MEDS: INSULIN LISPRO 100 UNIT/ML SUB-Q SCH ×4 (08:00→23:08)
[2021-04-15] MEDS ORDERED: REGADENOSON 0.4 MG/5 ML INJ IV ONE (08:52)
[2021-04-15] MEDS ORDERED: LORazepam 2 MG/ML VIAL ONE (10:32)
--- NOTE | 2021-04-15 11:07 | Event Note ---
Date: 04/15/21 Patient underwent a Lexiscan thallium stress test, as ordered, no chest pain and no ST changes with pharmacologic stress, myocardial perfusion images are pending.
[2021-04-15] MEDS: FERROUS GLUCONATE 324 MG TAB PO SCH (12:39)
[2021-04-15] MEDS: PANTOPRAZOLE 40 MG TAB PO SCH ×2 (12:39→22:09)
--- NOTE | 2021-04-15 12:52 | Treadmill Report ---
DATE OF SERVICE: 04/15/2021 THALLIUM STRESS TEST REPORT Left ventricular chamber size is within normal spread. Perfusion study demonstrates homogeneous uptake of the tracer in all segments, no significant defects identified. Gated analysis demonstrates normal left ventricular systolic function, ejection fraction 51%. CONCLUSION: Normal myocardial perfusion study. TID: [id number] RECEIPT: [id number] DAVID/MICHAEL/[place]
--- NOTE | 2021-04-15 14:15 | Progress Note ---
Assessment and Plan Assessment and plan: #NSTEMI -troponin downtrending -stress test performed today -stress test completed today -Cardiology consulted, assistance appreciated #Elevated d-dimer -V/Q scan low probability for PE -duplex of BLE negative for DVT #Microcytic anemia -Chronic -recent history of GI bleed, will follow with GI outpatient for pillcam -Continue iron supplementation -will transfuse for hemoglobin less than 7 -repeat H&H in the AM #Elevated t.bilirubin #Elevated liver enzymes -chronic t.bilirubin elevation since 02/2021 -AST/ALT downtrending from recent ED visit, likely secondary to volume depletion from diarrhea -will continue to monitor #Moderate protein calorie malnutrition -albumin 2.9 -Nutrition consult #Type 2 diabetes -Takes Metformin outpatient -We will start sliding scale and Accu-Cheks while inpatient -Goal glucose 140-180 #GERD -continue protonix 40mg BID #Hypokalemia #Hypomagnesemia -will replete and monitor History Interval history: No acute events overnight. Chest pain-free. Denies shortness of breath. Inquired about receiving blood products due to low hemoglobin levels. Hospitalist Physical - Physical exam Narrative exam: GENERAL: Well-developed well-nourished. In no acute distress. CHEST/LUNGS: CTAB on room air HEART/CARDIOVASCULAR: RRR. No murmur, rubs or gallops appreciated. ABDOMEN: +BS. NT/ND. SKIN: No rashes noted. NEURO: No focal motor deficit. Follows all commands. MUSCULOSKELETAL: No joint effusion EXTREMITIES: No cyanosis, clubbing or edema. PSYCH: Cooperative. - Constitutional Vitals: Temp Pulse Resp BP Pulse Ox 98.3 F 88 20 126/66 99 04/15/21 11:37 04/15/21 11:37 04/15/21 11:37 04/15/21 11:37 04/15/21 11:37 General appearance: Present: no acute distress HEART Score - HEART Score EKG: Non-specific Age: > 65 Risk factors: 1-2 risk factors Troponin: Troponin T 0.029 ng/mL (0.00-0.029) 04/13/21 22:13 Troponin: 1-3x normal limit - Critical Actions Critical Actions: 4-6 pts:12-16.6% risk of adverse cardiac event. Should be admitted Results - Labs CBC & Chem 7: 04/13/21 12:58 04/15/21 06:01 Labs: Laboratory Last Values WBC 5.8 K/mm3 (4.5-11.0) 04/13/21 12:58 RBC 3.60 M/mm3 (3.65-5.03) L 04/13/21 12:58 Hgb 8.7 gm/dl (11.8-15.2) L 04/13/21 12:58 Hct 28.2 % (35.5-45.6) L 04/13/21 12:58 MCV 78 fl (84-94) L 04/13/21 12:58 MCH 24 pg (28-32) L 04/13/21 12:58 MCHC 31 % (32-34) L 04/13/21 12:58 RDW 26.4 % (13.2-15.2) H 04/13/21 12:58 Plt Count 572 K/mm3 (140-440) H 04/13/21 12:58 Add Manual Diff Complete 04/13/21 12:58 Total Counted 100 04/13/21 12:58 Seg Neuts % (Manual) 83.0 % (40.0-70.0) H 04/13/21 12:58 Band Neutrophils % 0 % 04/13/21 12:58 Lymphocytes % (Manual) 10.0 % (13.4-35.0) L 04/13/21 12:58 Reactive Lymphs % (Man) 0 % 04/13/21 12:58 Monocytes % (Manual) 5.0 % (0.0-7.3) 04/13/21 12:58 Eosinophils % (Manual) 1.0 % (0.0-4.3) 04/13/21 12:58 Basophils % (Manual) 1.0 % (0.0-1.8) 04/13/21 12:58 Metamyelocytes % 0 % 04/13/21 12:58 Myelocytes % 0 % 04/13/21 12:58 Promyelocytes % 0 % 04/13/21 12:58 Blast Cells % 0 % 04/13/21 12:58 Nucleated RBC % Not Reportable 04/13/21 12:58 Seg Neutrophils # Man 4.8 K/mm3 (1.8-7.7) 04/13/21 12:58 Band Neutrophils # 0.0 K/mm3 04/13/21 12:58 Lymphocytes # (Manual) 0.6 K/mm3 (1.2-5.4) L 04/13/21 12:58 Abs React Lymphs (Man) 0.0 K/mm3 04/13/21 12:58 Monocytes # (Manual) 0.3 K/mm3 (0.0-0.8) 04/13/21 12:58 Eosinophils # (Manual) 0.1 K/mm3 (0.0-0.4) 04/13/21 12:58 Basophils # (Manual) 0.1 K/mm3 (0.0-0.1) 04/13/21 12:58 Metamyelocytes # 0.0 K/mm3 04/13/21 12:58 Myelocytes # 0.0 K/mm3 04/13/21 12:58 Promyelocytes # 0.0 K/mm3 04/13/21 12:58 Blast Cells # 0.0 K/mm3 04/13/21 12:58 WBC Morphology Not Reportable 04/13/21 12:58 Hypersegmented Neuts Not Reportable 04/13/21 12:58 Hyposegmented Neuts Not Reportable 04/13/21 12:58 Hypogranular Neuts Not Reportable 04/13/21 12:58 Smudge Cells Not Reportable 04/13/21 12:58 Toxic Granulation Not Reportable 04/13/21 12:58 Toxic Vacuolation Not Reportable 04/13/21 12:58 Dohle Bodies Not Reportable 04/13/21 12:58 Pelger-Huet Anomaly Not Reportable 04/13/21 12:58 Katia Rods Not Reportable 04/13/21 12:58 Platelet Estimate Consistent w auto 04/13/21 12:58 Clumped Platelets Not Reportable 04/13/21 12:58 Plt Clumps, EDTA Not Reportable 04/13/21 12:58 Large Platelets Few 04/13/21 12:58 Giant Platelets Not Reportable 04/13/21 12:58 Platelet Satelliting Not Reportable 04/13/21 12:58 Plt Morphology Comment Not Reportable 04/13/21 12:58 RBC Morphology Not Reportable 04/13/21 12:58 Dimorphic RBCs Not Reportable 04/13/21 12:58 Polychromasia 1+ 04/13/21 12:58 Hypochromasia 1+ 04/13/21 12:58 Poikilocytosis 1+ 04/13/21 12:58 Anisocytosis 2+ 04/13/21 12:58 Microcytosis Not Reportable 04/13/21 12:58 Macrocytosis 1+ 04/13/21 12:58 Spherocytes Not Reportable 04/13/21 12:58 Pappenheimer Bodies Not Reportable 04/13/21 12:58 Sickle Cells Not Reportable 04/13/21 12:58 Target Cells Not Reportable 04/13/21 12:58 Tear Drop Cells 1+ 04/13/21 12:58 Ovalocytes 1+ 04/13/21 12:58 Helmet Cells Not Reportable 04/13/21 12:58 Suarez-Lasara Bodies Not Reportable 04/13/21 12:58 Tingley Rings Not Reportable 04/13/21 12:58 Cypress Cells Not Reportable 04/13/21 12:58 Bite Cells Not Reportable 04/13/21 12:58 Crenated Cell Not Reportable 04/13/21 12:58 Elliptocytes 1+ 04/13/21 12:58 Acanthocytes (Spur) Not Reportable 04/13/21 12:58 Rouleaux Not Reportable 04/13/21 12:58 Hemoglobin C Crystals Not Reportable 04/13/21 12:58 Schistocytes Not Reportable 04/13/21 12:58 Malaria parasites Not Reportable 04/13/21 12:58 Jl Bodies Not Reportable 04/13/21 12:58 Hem Pathologist Commnt No 04/13/21 12:58 PT 16.9 Sec. (12.2-14.9) H 04/13/21 12:58 INR 1.24 (0.87-1.13) H 04/13/21 12:58 APTT 34.1 Sec. (24.2-36.6) 04/13/21 12:58 D-Dimer 3115.98 ng/mlDDU (0-234) H 04/13/21 12:58 Sodium 137 mmol/L (137-145) 04/15/21 06:01 Potassium 3.6 mmol/L (3.6-5.0) 04/15/21 06:01 Chloride 106.1 mmol/L (98-107) 04/15/21 06:01 Carbon Dioxide 22 mmol/L (22-30) 04/15/21 06:01 Anion Gap 13 mmol/L 04/15/21 06:01 BUN 6 mg/dL (9-20) L 04/15/21 06:01 Creatinine 0.5 mg/dL (0.8-1.3) L 04/15/21 06:01 Estimated GFR > 60 ml/min 04/15/21 06:01 BUN/Creatinine Ratio 12 % 04/15/21 06:01 Glucose 201 mg/dL (75-100) H 04/15/21 06:01 POC Glucose 176 mg/dL (70-105) H 04/15/21 11:39 Calcium 7.4 mg/dL (8.4-10.2) L 04/15/21 06:01 Magnesium 1.70 mg/dL (1.7-2.3) 04/15/21 06:01 Total Bilirubin 1.10 mg/dL (0.1-1.2) 04/15/21 06:01 AST 23 units/L (5-40) 04/15/21 06:01 ALT 83 units/L (7-56) H 04/15/21 06:01 Alkaline Phosphatase 70 units/L (35-129) 04/15/21 06:01 Total Creatine Kinase 127 units/L (55-170) 04/13/21 12:58 Troponin T 0.029 ng/mL (0.00-0.029) 04/13/21 22:13 NT-Pro-B Natriuret Pep 993.7 pg/mL (0-900) H 04/13/21 13:40 Total Protein 4.3 g/dL (6.3-8.2) L 04/15/21 06:01 Albumin 2.5 g/dL (3.9-5) L 04/15/21 06:01 Albumin/Globulin Ratio 1.4 % 04/15/21 06:01 Urine Opiates Screen Negative 04/13/21 Unknown Urine Methadone Screen Negative 04/13/21 Unknown Ur Barbiturates Screen Negative 04/13/21 Unknown Ur Phencyclidine Scrn Negative 04/13/21 Unknown Ur Amphetamines Screen Negative 04/13/21 Unknown U Benzodiazepines Scrn Negative 04/13/21 Unknown Urine Cocaine Screen Negative 04/13/21 Unknown U Marijuana (THC) Screen Negative 04/13/21 Unknown Drugs of Abuse Note Disclamer 04/13/21 Unknown Blood Type A POSITIVE 04/13/21 12:58 Antibody Screen TNR 04/13/21 12:58 JYOTI Antibody Screen Negative 04/13/21 12:58 Parker/IV: Voiding Method Toilet Active Medications - Current Medications Current Medications: Generic Name Dose Route Start Last Admin Trade Name Freq PRN Reason Stop Dose Admin Acetaminophen 650 mg 04/13/21 18:00 Acetaminophen 325 Mg Tab PO Q6H PRN Pain, Mild (1-3) Albuterol 2.5 mg 04/13/21 18:00 Albuterol 2.5 Mg/3 Ml Nebu IH Q4HRT PRN Shortness Of Breath Atorvastatin Calcium 40 mg 04/13/21 22:00 04/14/21 22:58 Atorvastatin 40 Mg Tab PO 40 mg QHS LUCIAN Administration Dextrose 50 ml 04/14/21 13:00 Dextrose 50% In Water (25gm) 50 Ml Syringe IV Q30MIN PRN Hypoglycemia Protocol Ferrous Gluconate 324 mg 04/14/21 10:00 04/15/21 12:39 Ferrous Gluconate 324 Mg Tab PO 324 mg QDAY LUCIAN Administration Heparin Sodium (Porcine) 5,000 unit 04/14/21 14:00 04/15/21 06:55 Heparin 5,000 Unit/1 Ml Vial SUB-Q 5,000 unit Q8HR LUCIAN Administration Hydromorphone HCl 0.5 mg 04/13/21 18:00 Hydromorphone 1 Mg/1 Ml Inj IV Q23H PRN Pain , Severe (7-10) Insulin Human Lispro 0 unit 04/14/21 16:30 04/15/21 12:43 Insulin Lispro 100 Unit/Ml SUB-Q 2 unit ACHS LUCIAN Administration Protocol Nitroglycerin 0.4 mg 04/13/21 18:00 Nitroglycerin 0.4 Mg Tab Subl SL Q5M PRN Chest Pain Ondansetron HCl 4 mg 04/13/21 18:00 Ondansetron 4 Mg/2 Ml Inj IV Q8H PRN Nausea And Vomiting Oxycodone/Acetaminophen 1 tab 04/13/21 18:00 04/14/21 16:22 Oxycodone /Acetaminophen 5-325mg Tab PO 1 tab Q16H PRN Administration Pain, Moderate (4-6) Pantoprazole Sodium 40 mg 04/13/21 22:00 04/15/21 12:39 Pantoprazole 40 Mg Tab PO 40 mg BID LUCIAN Administration Sodium Chloride 10 ml 04/13/21 22:00 04/15/21 12:40 Sodium Chloride 0.9% 10 Ml Flush Syringe IV 10 ml BID LUCIAN Administration Sodium Chloride 10 ml 04/13/21 18:00 Sodium Chloride 0.9% 10 Ml Flush Syringe IV PRN PRN LINE FLUSH Tramadol HCl 50 mg 04/13/21 18:00 Tramadol 50 Mg Tab PO Q6H PRN Pain, Moderate (4-6) Nutrition/Malnutrition Assess - Dietary Evaluation Nutrition/Malnutrition Findings: Nutrition Notes Start: 04/14/21 11:17 Freq: Status: Active Protocol: Document 04/14/21 11:17 RS (Rec: 04/14/21 11:22 RS [id number]) Nutrition Notes Need for Assessment generated from: MD Order,core drier Initial or Follow up Assessment Current Diagnosis Diabetes Other Pertinent Diagnosis OA, immune thrombocytopenia, HCV, GERD, Nicotine Dependence Current Diet Cardiac Diet Labs/Tests GLU: 255 Cr:0.6 Pertinent Medications reviewed Height 5 ft 6 in Weight 54 kg Usual Body Weight 55 kg [place] Body Weight (kg) 64.54 BMI 19.2 Intake Prior to Admission Good Weight change and time frame AURA at this time Weight Status Underweight Subjective/Other Information MD consult for malnutrition and RN consult for skin risk. Hypoalbuminemia not a marker for malnutrition. RD noted some muscle wasting in clavical/temporal lobes. RD noted protruding shoulder blades. Unable to assess diet/ wt hx katy. RD observed meal tray, pt consumed 50% of meal and fell asleep. RN reported poor PO intake for breakfast ( 25%). Paolo score 21. Pt will be NPO starting 04/15 for cardiac stress test. Percent of energy/protein needs met: 59%/65% Burn Absent Trauma Absent GI Symptoms None Skin Integrity/Comment Paolo Score 21 Current % PO Poor (25-49%) Minimum of two criteria No Muscle Mass Moderate Depletion (severe) #1 Nutrition Diagnosis Inadequate oral intake Etiology geriatric age causing diminished appetite As Evidenced by Signs and Symptoms pt consuming 25-50% of meals Is patient on ventilator? No Is Patient Ambulatory and/or Out of Bed No REE-(Russell-St. Jeor-confined to bed) 1520.988 Kcal/Kg value to use for calculation 35 Approximate Energy Requirements Using 1890 kcal/Kg Calculation Used for Recommendations Kcal/kg Additional Notes Pro needs 65g/day (>1.2g/kg BW /day (individualized) ) fluid needs 1ml/kcal Nutrition Intervention Change Diet Order: Continue Cardiac diet Add Supplement/Snack (indicate name/kcal Ensure Enlive Vanilla BID /protein ) Provides kCal: 700 Provides Protein (gm) 40 Goal #1 Meet at least 75% of kcal and PRO needs via PO intake and ONS Goal #2 Wt maintenence Anticipated Discharge Needs: Cardiac Diet Follow-Up By: 04/16/21 Revisit per MD consult or patient Sign Off request: Additional Comments F/U for PO intake, ONS tolerance/adherence, wt status
[2021-04-16 06:30] LABS: Hematocrit 25.9 % (35.5-45.6); Hemoglobin 7.4 gm/dl (11.8-15.2)
[2021-04-16 06:40] LABS: Blood Urea Nitrogen 8 mg/dL (9-20); Calcium 7.8 mg/dL (8.4-10.2); Hemolysis Index 16
[2021-04-16 06:44] LABS: BUN/Creatinine Ratio 11
[2021-04-16] MEDS: HEPARIN 5,000 UNIT/1 ML VIAL SUB-Q SCH ×2 (06:51→14:28)
[2021-04-16] MEDS: INSULIN LISPRO 100 UNIT/ML SUB-Q SCH ×3 (08:37→17:45)
--- NOTE | 2021-04-16 09:05 | Electrocardiograph Report ---
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
[2021-04-16] MEDS: PANTOPRAZOLE 40 MG TAB PO SCH (09:52)
[2021-04-16] MEDS: FERROUS GLUCONATE 324 MG TAB PO SCH (09:52)
--- NOTE | 2021-04-16 11:16 | Discharge Summary ---
Providers - Providers Date of Admission: 04/13/21 17:12 Date of discharge: 04/16/21 Attending physician: TIERRA BROWN MD 04/13/21 Consult to Cardiac Rehabilitation [CONS] Routine Reason For Exam: Phase I 04/13/21 14:40 Consult to Cardiology [CONS] Stat Consulting Provider: EMILIA FLEMING Reason For Exam: acute chest pain + troponin 04/14/21 10:02 Physical Therapy Evaluation and Treat [CONS] Routine Comment: Reason For Exam: walking and gait assessment 04/14/21 12:24 Consult to Dietitian/Nutrition [CONS] Routine Physician Instructions: Reason For Exam: Reason for Consult: Malnutrition Primary care physician: STACKER ATTENDANT Hospitalization Reason for admission: NSTEMI Condition: Good Pertinent studies: Reviewed. Procedures: Cardiac stress test Hospital course: The patient is a 65-year-old male with past medical history of symptomatic anemia, osteoarthritis, nicotine dependence, hepatitis C, GERD, and noninsulin dependent type 2 diabetes mellitus who presented with chest pain worsening over a 2-day.. The patient was found to have an elevated troponin with his initial blood work in the ED and an elevated D-dimer. VQ scan was ordered that revealed low probability of pulmonary embolism. Cardiology was consulted for management of ACS. The patient underwent cardiac stress test that was unremarkable. The patient is currently chest pain-free. Patient is medically cleared for discharge. Disposition: 01 HOME / SELF CARE / HOMELESS Final Discharge Diagnosis (Prints w/discharge instructions): NSTEMI, elevated D- dimer, microcytic anemia, elevated transaminases, elevated total bilirubin, moderate protein caloric malnutrition, [id number] type 2 diabetes mellitus, GERD, hypokalemia, hypomagnesemia, nicotine dependence Time spent for discharge: 45 min Core Measure Documentation - Palliative Care Palliative Care/ Comfort Measures: Not Applicable - Core Measures Any of the following diagnoses?: none Exam - Constitutional Vitals: Temp Pulse Resp BP Pulse Ox 98.2 F 99 H 18 132/74 98 04/16/21 08:17 04/16/21 08:17 04/16/21 08:17 04/16/21 08:17 04/16/21 10:00 General appearance: Present: no acute distress - EENT Eyes: Present: PERRL, EOM intact ENT: hearing intact, clear oral mucosa, edentulous - Neck Neck: Present: supple, normal ROM - Respiratory Respiratory effort: normal Respiratory: bilateral: CTA - Cardiovascular Rhythm: regular Heart Sounds: Present: S1 & S2 - Extremities Extremities: no ischemia, pulses intact, pulses symmetrical, No edema, normal temperature, normal color Peripheral Pulses: within normal limits - Abdominal General gastrointestinal: Present: soft, non-tender, non-distended, normal bowel sounds Male genitourinary: Present: deferred - Rectal Rectal Exam: deferred - Integumentary Integumentary: Present: clear, warm, dry - Musculoskeletal Musculoskeletal: strength equal bilaterally - Psychiatric Psychiatric: appropriate mood/affect, memory intact, cooperative - Neurologic Neurologic: CNII-XII intact, moves all extremities - Allied Health Allied health notes reviewed: nursing Plan Activity: no restrictions Diet: low salt, diabetic Additional Instructions: The patient is a 65-year-old male with past medical history of symptomatic anemia, osteoarthritis, nicotine dependence, hepatitis C, GERD, and noninsulin dependent type 2 diabetes mellitus who presented with chest pain worsening over a 2-day.. The patient was found to have an elevated troponin with his initial blood work in the ED and an elevated D-dimer. VQ scan was ordered that revealed low probability of pulmonary embolism. Cardiology was consulted for management of ACS. The patient underwent cardiac stress test that was unremarkable. The patient is currently chest pain-free. Patient is medically cleared for discharge. Care Plan Goals: Patient is medically cleared for discharge. Assessment: The patient is a 65-year-old male with past medical history of symptomatic anemia, osteoarthritis, nicotine dependence, hepatitis C, GERD, and noninsulin dependent type 2 diabetes mellitus who presented with chest pain worsening over a 2-day.. The patient was found to have an elevated troponin with his initial blood work in the ED and an elevated D-dimer. VQ scan was ordered that revealed low probability of pulmonary embolism. Cardiology was consulted for management of ACS. The patient underwent cardiac stress test that was unremarkable. The patient is currently chest pain-free. Patient is medically cleared for discharge. Follow up with: PRIMARY CARE, [Primary Care Provider] - 3-5 Days Prescriptions: AtorvaSTATin [Lipitor] 40 mg PO QHS #30 tablet metFORMIN [Glucophage] 500 mg PO QDAY #30 tab
--- NOTE | 2021-04-16 13:06 | Progress Note ---
Assessment and Plan - Patient Problems (1) Atypical chest pain Current Visit: Yes Status: Acute Plan to address problem: Following the rule out protocol, patient underwent a Lexiscan thallium stress test, negative for ischemia. 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 Subjective Date of service: 04/16/21 Interval history: Patient is comfortable, no chest pain, no new cardiac events reported. Objective Vital Signs Temp Pulse Resp BP Pulse Ox 04/16/21 11:00 95 H 04/16/21 10:00 98 04/16/21 08:17 98.2 F 99 H 18 132/74 96 04/16/21 03:45 98.6 F 104 H 14 151/68 90 04/16/21 03:00 100 H 04/15/21 23:27 97.7 F 105 H 19 145/68 94 04/15/21 19:09 99.2 F 97 H 16 139/67 97 04/15/21 19:00 68 98 04/15/21 16:56 98.3 F 99 H 16 139/70 96 - Physical Examination General: No Apparent Distress HEENT: Positive: PERRL Neck: Positive: neck supple Cardiac: Positive: Reg Rate and Rhythm Lungs: Positive: Decreased Breath Sounds Neuro: Positive: Grossly Intact Abdomen: Positive: Soft Skin: Positive: Clear Extremities: Absent: edema - Labs and Meds CBC 04/16/21 Range/Units 04:30 Hgb 7.4 L (11.8-15.2) gm/dl Hct 25.9 L (35.5-45.6) % Comprehensive Metabolic Panel 04/16/21 Range/Units 04:30 Sodium 141 (137-145) mmol/L Potassium 3.8 (3.6-5.0) mmol/L Chloride 106.6 (98-107) mmol/L Carbon Dioxide 24 (22-30) mmol/L BUN 8 L (9-20) mg/dL Creatinine 0.7 L (0.8-1.3) mg/dL Glucose 169 H (75-100) mg/dL Calcium 7.8 L (8.4-10.2) mg/dL
[2021-04-16 16:00] VITALS: BP 149/81
== END 2021-04-16 19:45 | disposition home or self-care (01) | DRG 281 ==
LOC: ED 11:39 → 4A 17:12
PROVIDERS: ADMIT Internal Medicine; ATTEND Student in an Organized Health Care Education/Training Program
DX: I21.4 Non-ST elevation (NSTEMI) myocardial infarction (principal); F17.213 Nicotine dependence, cigarettes, with withdrawal; E44.0 Moderate protein-calorie malnutrition; Z68.1 Body mass index [BMI] 19.9 or less, adult; I50.9 Heart failure, unspecified; K21.9 Gastro-esophageal reflux disease without esophagitis; D64.9 Anemia, unspecified; E87.6 Hypokalemia; E83.42 Hypomagnesemia; E11.9 Type 2 diabetes mellitus without complications; Z82.49 Family history of ischemic heart disease and other diseases of the circulatory system
CPT/HCPCS: 36415; 70450; 71045; 78452; 78580; 80048; 80053; 80307; 82550; 82962; 83735; 83880; 84484; 85007; 85014; 85018; 85025; 85379; 85610; 85730; 86850; 86900; 86901; 93005; 93010; 93017; 93970; G0378; Q9967; A9502; A9540; C9113; J1200; J1644; J1815; J2060; J2765; J2785; J7120

== ENCOUNTER 2021-10-20 08:47 | Inpatient (IN) | payer SELFPAY ==
[2021-10-20] MEDS ORDERED: SODIUM CHLORIDE 0.9% 1000 ML 1,000 ML IV ONE ×2 (09:52)
[2021-10-20] MEDS ORDERED: PANTOPRAZOLE 40 MG INJ IV ONE (09:53)
[2021-10-20] MEDS ORDERED: OCTREOTIDE 500 MCG in SODIUM CHLORIDE 0.9% 100 ML IV ONE (10:22)
[2021-10-20] MEDS ORDERED: OCTREOTIDE 50 MCG/1 ML INJ IV ONE (10:22)
--- NOTE | 2021-10-20 10:24 | Emergency Department Report ---
HPI - General Chief Complaint: Syncope Time Seen by Provider: 10/20/21 09:52 - HPI HPI: Room 6 The patient is a 66-year-old male presenting with a chief complaint of diarrhea. The patient states for the past 2 days she has had copious diarrhea. Patient also admits to nausea vomiting which began today. The patient was transported via EMS and when he arrived to the ED EMS weakness episode of hematemesis stating that it was bright red blood. Patient complains of feeling weak and had a near syncopal episode yesterday. ED Past Medical Hx - Past Medical History Hx Hypertension: Yes Hx Congestive Heart Failure: Yes Hx Diabetes: Yes Hx GERD: Yes Hx Arthritis: Yes Additional medical history: ANEMIA. Proximal gut and multiple colon AVM's (endoscopy/colonoscopy March 2017). hep C. Pancytopenia. Recurrent anemia requiring blood transfusion. ITP - Family History Family history: no significant - Social History Smoking Status: Current Every Day Smoker (1/2 pack/day) Substance Use Type: None (Denies illicit drug use) - Medications Home Medications: Home Medications Medication Instructions Recorded Confirmed Last Taken Type Ferrous Gluconate [Ferrous 324 mg PO QDAY #30 04/12/21 04/15/21 Unknown Rx Gluconate 324 MG] Pantoprazole [Protonix TAB] 40 mg PO BID #60 tablet 04/12/21 04/15/21 Unknown Rx AtorvaSTATin [Lipitor] 40 mg PO QHS #30 tablet 04/16/21 Unknown Rx metFORMIN [Glucophage] 500 mg PO QDAY #30 tab 04/16/21 Unknown Rx ED Review of Systems ROS: Stated complaint: SYNCOPE/DIARRHEA Other details as noted in HPI Constitutional: weakness Eyes: denies: eye pain ENT: denies: throat pain Respiratory: no symptoms reported Cardiovascular: denies: chest pain Endocrine: no symptoms reported Gastrointestinal: hematemesis, melena. denies: abdominal pain Genitourinary: denies: testicular pain Neurological: denies: headache Physical Exam - Physical Exam Vital Signs: Vital Signs 10/20/21 08:48 Temperature 98.7 F Pulse Rate 105 H Respiratory 15 Rate Blood Pressure 90/60 [Left] O2 Sat by Pulse 99 Oximetry Physical Exam: GENERAL: The patient is well-developed well-nourished male lying on stretcher not appearing to be in acute distress. [] HEENT: Normocephalic. Atraumatic. Extraocular motions are intact. Patient has moist mucous membranes. NECK: Supple. Trachea midline CHEST/LUNGS: Clear to auscultation. There is no respiratory distress noted. HEART/CARDIOVASCULAR: Regular. There is no tachycardia. There is no gallop rub or murmur. ABDOMEN: Abdomen is soft, nontender. Patient has normal bowel sounds. There is no abdominal distention. SKIN: There is no rash. There is no edema. There is no diaphoresis. NEURO: The patient is awake, alert, and oriented. The patient is cooperative. The patient has no focal neurologic deficits. The patient has normal speech. GCS 15 MUSCULOSKELETAL: There is no evidence of acute injury. RECTAL: Guaiac positive black stool ED Course Vital Signs 10/20/21 08:48 Temperature 98.7 F Pulse Rate 105 H Respiratory 15 Rate Blood Pressure 90/60 [Left] O2 Sat by Pulse 99 Oximetry - Reevaluation(s) Reevaluation #1: 10/20/21 13:43 GI paged - Consultations Consultation #1: 10/20/21 14:14 Case discussed with consulting technical director Dr. Sawant ED Medical Decision Making - Lab Data Result diagrams: 10/20/21 10:19 10/20/21 10:19 Laboratory Tests 10/20/21 10/20/21 10/20/21 10:19 10:19 10:19 WBC 5.6 RBC 1.13 L Hgb 1.9 L* Hct 7.6 L* MCV 67 L MCH 17 L MCHC 26 L RDW 26.8 H PT 21.3 H INR 1.63 H APTT 33.0 Sodium 144 Potassium 4.6 Chloride 107.4 H Carbon Dioxide 14 L Anion Gap 27 BUN 29 H Creatinine 0.8 Estimated GFR > 60 BUN/Creatinine Ratio 36 Glucose 200 H Calcium 8.3 L Total Bilirubin 0.80 AST 22 ALT 9 Alkaline Phosphatase 64 Total Protein 6.2 L Albumin 3.9 Albumin/Globulin Ratio 1.7 Blood Type Antibody Screen Crossmatch 10/20/21 10:22 WBC RBC Hgb Hct MCV MCH MCHC RDW PT INR APTT Sodium Potassium Chloride Carbon Dioxide Anion Gap BUN Creatinine Estimated GFR BUN/Creatinine Ratio Glucose Calcium Total Bilirubin AST ALT Alkaline Phosphatase Total Protein Albumin Albumin/Globulin Ratio Blood Type A POSITIVE Antibody Screen Positive Crossmatch See Detail Platelets 31,000 - Differential Diagnosis Upper GI bleed Critical care attestation.: If time is entered above; I have spent that time in minutes in the direct care of this critically ill patient, excluding procedure time. ED Disposition Clinical Impression: GI bleed, Thrombocytopenia Disposition: ADMITTED INPATIENT Is pt being admited?: Yes Does the pt Need Aspirin: No Condition: Serious Time of Disposition: 14:35 (Care transferred to hospitalist (Dr. Ambriz))
[2021-10-20 10:44] LABS: Alanine Aminotransferase 9 units/L (7-56); Albumin 3.9 g/dL (3.9-5); BUN/Creatinine Ratio 36; Blood Urea Nitrogen 29 mg/dL (9-20); Calcium 8.3 mg/dL (8.4-10.2); Hemolysis Index 5
[2021-10-20] MEDS ORDERED: LIDOCAINE (1%) 10 MG/1 ML VIAL 20 ML MDV INFILTRATI ONE (11:27)
[2021-10-20] MEDS: PANTOPRAZOLE 80 MG in SODIUM CHLORIDE 0.9% 100 ML IV SCH (11:45)
[2021-10-20 12:56] LABS: INR 1.63 (0.87-1.13)
[2021-10-20 13:41] LABS: Red Blood Count 1.13 M/mm3 (3.65-5.03)
[2021-10-20 13:42] LABS: Hematocrit 7.6 % (35.5-45.6); Hemoglobin 1.9 gm/dl (11.8-15.2); Mean Corpuscular HGB Conc 26 % (32-34); Mean Corpuscular Volume 67 fl (84-94); Red Cell Distribution Width 26.8 % (13.2-15.2)
[2021-10-20] MEDS ORDERED: SODIUM CHLORIDE 0.9% 500 ML 500 ML IV ONE (13:44)
--- NOTE | 2021-10-20 14:35 | History and Physical Report ---
History of Present Illness Chief complaint: I feel weak and her blood my stool and I passed out today History of present illness: 66 YO Male with DM, OA, Symptomatic Anemia, ITP, Colonic AV Malformation, Nicotine Dependence, HCV, GERD, CHF, OA, PSA, Noncompliance presents to ED for evaluation. Pt reports "I have blood in my stool". Pt states that he has experienced multiple episodes of diarrhea complicated by blood in stool over the past 2 days. Patient states he has also experienced generalized weakness over the past 2 days. Patient experienced an episode of loss of consciousness today. EMS was notified and upon arrival the patient was found to be in distress and subsequently transported [facility] for further care and evaluation of the aforementioned symptoms. The patient was seen and evaluated in the emergency department. All lab and imaging studies reviewed. The patient was found to be Hemoccult positive. The patient was found to have clinical symptoms consistent with GI bleed complicated by blood loss anemia with resultant loss of consciousness. Patient admitted to medical floor and initiated on GI bleed protocol. GI team consulted in ED. Patient denied fever, chills, palpitation, productive cough, skin rash, recent contact, known exposure to COVID-19. Prior admission on 04/13/2021 reviewed. All medication listed at time of admission has been reconciled. Advanced care planning conducted in ED. Past History Past Medical History: anemia, diabetes, GERD, heart failure, other (See HPI) Past Surgical History: No surgical history Social history: single, smoking. denies: alcohol abuse, prescription drug abuse Family history: diabetes, hypertension Medications and Allergies Allergies Allergy/AdvReac Type Severity Reaction Status Date / Time No Known Allergies Allergy Verified 10/20/21 08:49 Home Medications Medication Instructions Recorded Confirmed Last Taken Type Ferrous Gluconate [Ferrous 324 mg PO QDAY #30 04/12/21 04/15/21 Unknown Rx Gluconate 324 MG] Pantoprazole [Protonix TAB] 40 mg PO BID #60 tablet 04/12/21 04/15/21 Unknown Rx AtorvaSTATin [Lipitor] 40 mg PO QHS #30 tablet 04/16/21 Unknown Rx metFORMIN [Glucophage] 500 mg PO QDAY #30 tab 04/16/21 Unknown Rx Active Meds: Active Medications Pantoprazole Sodium 80 mg/ (Sodium Chloride) 100 mls @ 10 mls/hr IV DIRECT LUCIAN Last Admin: 10/20/21 11:45 Dose: 8 mg/hr, 10 mls/hr Review of Systems Constitutional: weakness, no weight loss, no weight gain, no fever, no chills Ears, nose, mouth and throat: no ear pain, no tinnitis, no nose pain, no nasal congestion, no nasal discharge Cardiovascular: no chest pain, no orthopnea, no palpitations Respiratory: no cough, no cough with sputum, no hemoptysis Gastrointestinal: diarrhea, BRBPR, no abdominal pain, no coffee ground emesis Genitourinary Male: no hematuria, no flank pain, no discharge, no urinary frequency, no urinary hesitancy Rectal: no pain, no incontinence, no bleeding Musculoskeletal: no neck stiffness, no neck pain, no shooting arm pain, no low back pain Integumentary: no rash, no pruritis, no redness, no sores, no wounds Neurological: no head injury, no transient paralysis, no parathesias, no numbness, no seizures, no syncope Psychiatric: no anxiety, no change in sleep habits, no hypersomnia, no change in libido Endocrine: no cold intolerance, no polyphagia, no excessive thirst, no polyuria, no nocturia, no excessive sweating Hematologic/Lymphatic: no easy bruising, no easy bleeding Allergic/Immunologic: no urticaria, no allergic rhinitis, no wheezing Exam - Constitutional Vitals: Temp Pulse Resp BP Pulse Ox 98.7 F 91 H 19 106/10 97 10/20/21 08:48 10/20/21 13:45 10/20/21 13:45 10/20/21 13:45 10/20/21 13:45 General appearance: Present: mild distress, cachectic - EENT Eyes: Present: PERRL (Conjunctival pallor) ENT: hearing intact, clear oral mucosa - Neck Neck: Present: supple, normal ROM - Respiratory Respiratory effort: normal Respiratory: bilateral: CTA - Cardiovascular Heart Sounds: Present: S1 & S2. Absent: rub, click - Extremities Extremities: pulses symmetrical, No edema Peripheral Pulses: within normal limits - Abdominal General gastrointestinal: Present: soft, non-tender, non-distended, normal bowel sounds Male genitourinary: Present: normal - Integumentary Integumentary: Present: clear, warm, dry - Musculoskeletal Musculoskeletal: gait normal, strength equal bilaterally - Psychiatric Psychiatric: appropriate mood/affect, intact judgment & insight - Neurologic Neurologic: CNII-XII intact, moves all extremities Results - Labs CBC & Chem 7: 10/20/21 10:19 10/20/21 10:19 Labs: Abnormal lab results 10/20/21 10/20/21 10/20/21 Range/Units 10:19 10:19 10:19 RBC 1.13 L (3.65-5.03) M/mm3 Hgb 1.9 L* (11.8-15.2) gm/dl Hct 7.6 L* (35.5-45.6) % MCV 67 L (84-94) fl MCH 17 L (28-32) pg MCHC 26 L (32-34) % RDW 26.8 H (13.2-15.2) % PT 21.3 H (12.2-14.9) Sec. INR 1.63 H (0.87-1.13) Chloride 107.4 H (98-107) mmol/L Carbon Dioxide 14 L (22-30) mmol/L BUN 29 H (9-20) mg/dL Glucose 200 H (75-100) mg/dL Calcium 8.3 L (8.4-10.2) mg/dL Total Protein 6.2 L (6.3-8.2) g/dL Crossmatch 10/20/21 Range/Units 10:22 RBC (3.65-5.03) M/mm3 Hgb (11.8-15.2) gm/dl Hct (35.5-45.6) % MCV (84-94) fl MCH (28-32) pg MCHC (32-34) % RDW (13.2-15.2) % PT (12.2-14.9) Sec. INR (0.87-1.13) Chloride (98-107) mmol/L Carbon Dioxide (22-30) mmol/L BUN (9-20) mg/dL Glucose (75-100) mg/dL Calcium (8.4-10.2) mg/dL Total Protein (6.3-8.2) g/dL Crossmatch See Detail Assessment and Plan - Patient Problems (1) GI bleed Current Visit: Yes Status: Acute Qualifiers: GI bleed type/associated pathology: anorectal hemorrhage Qualified Code(s): K62.5 - Hemorrhage of anus and rectum Plan to address problem: GI bleed protocol: Blood cell transfusion, PPI therapy, supportive care, GI team consulted in ED, Hemoccult positive in ED, supportive care. Repeat CBC in AM. (2) Diabetes Current Visit: Yes Status: Acute Plan to address problem: Consistent carbohydrate diet, Accu-Chek, insulin protocol, hypoglycemia protocol. (3) Syncope Current Visit: Yes Status: Acute Qualifiers: Encounter type: initial encounter Plan to address problem: Supportive care. Secondary to blood loss anemia. (4) Chronic ITP (idiopathic thrombocytopenic purpura) Current Visit: Yes Status: Acute Plan to address problem: IV steroid therapy, supportive care, platelet transfusion, continue medical management. (5) ABLA (acute blood loss anemia) Current Visit: Yes Status: Acute Plan to address problem: Blood cell transfusion, supportive care, CBC, repeat CBC in AM. (6) Hepatitis C Current Visit: No Status: Chronic Qualifiers: Viral hepatitis chronicity: chronic Hepatic coma status: without hepatic coma Qualified Code(s): B18.2 - Chronic viral hepatitis C Plan to address problem: Chronic, supportive care, outpatient GI follow-up. (7) DVT prophylaxis Current Visit: Yes Status: Acute Plan to address problem: SCDs bilateral lower extremities while in bed (8) Advance care planning Current Visit: Yes Status: Acute Plan to address problem: Disease education conducted, care plan discussed, diagnoses discussed, prognosis discussed, patient is full code. Patient acknowledges understanding and agreement with care plan, +30 minutes. (9) Preventative health care Current Visit: Yes Status: Acute Plan to address problem: Patient counseled regarding risk factor reduction, outpatient follow-up with hematology, outpatient follow-up with primary care physician for all age and risk factor appropriate screening test. +30 minutes.
[2021-10-20] MEDS ORDERED: HYDROmorphone 0.5 MG/0.5 ML INJ IV PRN (15:00)
[2021-10-20] MEDS ORDERED: ALBUTEROL 2.5 MG/3 ML NEBU IH PRN (15:00)
[2021-10-20] MEDS ORDERED: ACETAMINOPHEN 325 MG TAB PO PRN (15:00)
[2021-10-20] MEDS ORDERED: oxyCODONE /ACETAMINOPHEN 5-325MG TAB PO PRN (15:00)
--- NOTE | 2021-10-20 16:05 | Gastroenterology Consultation ---
History of Present Illness - Reason for Consult Consult date: 10/20/21 GI Bleed Requesting physician: ADELAIDA CARDONA - History of Present Illness The patient is a 66 yo male known to our group from prior treatment of chronic anemia (hx of upper/lower GI tract AVMs). However, he also has a hx of hematologic process (see Heme note) and has been treated with IVIG and steroids in the past. He came to the ER with a hgb of <2, and platelets of <30 (still pending, by verbal). He admits to dark stools. He does have a hx of HCV, but unclear if treated, and imaging shows no cirrhosis. He denies NSAIDs at home, and is not on blood thinners. Past History Past Medical History: diabetes, hepatitis (HCV dx 2018), hyperlipidemia, other (Heme disorder (?ITP)) Past Surgical History: No surgical history Social history: alcohol abuse (Hx of Etoh, not active). denies: smoking Family history: no significant family history Medications and Allergies Allergies Allergy/AdvReac Type Severity Reaction Status Date / Time No Known Allergies Allergy Verified 10/20/21 08:49 Home Medications Medication Instructions Recorded Confirmed Last Taken Type Ferrous Gluconate [Ferrous 324 mg PO QDAY #30 04/12/21 04/15/21 Unknown Rx Gluconate 324 MG] Pantoprazole [Protonix TAB] 40 mg PO BID #60 tablet 04/12/21 04/15/21 Unknown Rx AtorvaSTATin [Lipitor] 40 mg PO QHS #30 tablet 04/16/21 Unknown Rx metFORMIN [Glucophage] 500 mg PO QDAY #30 tab 04/16/21 Unknown Rx Active Meds: Active Medications Acetaminophen (Acetaminophen 325 Mg Tab) 650 mg PO Q6H PRN PRN Reason: Pain MILD(1-3)/Fever >100.5/DURÁN Albuterol (Albuterol 2.5 Mg/3 Ml Nebu) 2.5 mg IH Q3HRT PRN PRN Reason: Shortness Of Breath Hydromorphone HCl (Hydromorphone 0.5 Mg/0.5 Ml Inj) 0.5 mg IV Q23H PRN PRN Reason: Pain , Severe (7-10) Pantoprazole Sodium 80 mg/ (Sodium Chloride) 100 mls @ 10 mls/hr IV DIRECT LUCIAN Last Admin: 10/20/21 11:45 Dose: 8 mg/hr, 10 mls/hr Oxycodone/Acetaminophen (Oxycodone /Acetaminophen 5-325mg Tab) 1 tab PO Q16H PRN PRN Reason: Pain, Moderate (4-6) Sodium Chloride (Sodium Chloride 0.9% 10 Ml Flush Syringe) 10 ml IV BID LUCIAN Sodium Chloride (Sodium Chloride 0.9% 10 Ml Flush Syringe) 10 ml IV PRN PRN PRN Reason: LINE FLUSH I HAVE REVIEWED/RECONCILED MEDICATIONS Review of Systems - Review of Systems All systems: negative (as noted in the HPI) Exam - Constitutional Vital Signs: Temp Pulse Resp BP Pulse Ox 98.7 F 90 18 88/43 99 10/20/21 08:48 10/20/21 16:00 10/20/21 16:00 10/20/21 16:00 10/20/21 15:31 General appearance: mild distress, cachectic, disheveled - EENT Eyes: PERRL, EOM intact, scleral icterus ENT: hearing intact, clear oral mucosa, poor dentition - Neck Neck: supple, normal ROM - Respiratory Respiratory effort: normal Respiratory: bilateral: CTA - Cardiovascular Rhythm: regular Heart Sounds: Present: S1 & S2 Extremities: no ischemia - Gastrointestinal General gastrointestinal: Present: soft, non-tender, non-distended - Integumentary Integumentary: Present: clear, warm, dry - Neurologic Neurological: alert and oriented x3 - Psychiatric Psychiatric: appropriate mood/affect - Labs CBC & Chem 7: 10/20/21 10:19 10/20/21 10:19 Lab Results: Laboratory Results - last 24 hr 10/20/21 10/20/21 10/20/21 10:19 10:19 10:19 WBC 5.6 RBC 1.13 L Hgb 1.9 L* Hct 7.6 L* MCV 67 L MCH 17 L MCHC 26 L RDW 26.8 H PT 21.3 H INR 1.63 H APTT 33.0 Sodium 144 Potassium 4.6 Chloride 107.4 H Carbon Dioxide 14 L Anion Gap 27 BUN 29 H Creatinine 0.8 Estimated GFR > 60 BUN/Creatinine Ratio 36 Glucose 200 H Calcium 8.3 L Total Bilirubin 0.80 AST 22 ALT 9 Alkaline Phosphatase 64 Total Protein 6.2 L Albumin 3.9 Albumin/Globulin Ratio 1.7 Blood Type Antibody Screen Crossmatch 08/14/22 10:22 WBC RBC Hgb Hct MCV MCH MCHC RDW PT INR APTT Sodium Potassium Chloride Carbon Dioxide Anion Gap BUN Creatinine Estimated GFR BUN/Creatinine Ratio Glucose Calcium Total Bilirubin AST ALT Alkaline Phosphatase Total Protein Albumin Albumin/Globulin Ratio Blood Type A POSITIVE Antibody Screen Positive Crossmatch See Detail Assessment and Plan - Patient Problems (1) ABLA (acute blood loss anemia) Current Visit: Yes Status: Acute Plan to address problem: - The patient has a hx of AVMs treated at EGD/colon 2016 and 2018, but these usually cause slow leak, and not severe thrombocytopenia as seen here. - I recommend continue current protonix, and OK to have clear liquids. - Patient needs Heme/Onc consult. - Transfuse as you are doing, and MVI as well.
[2021-10-20 19:33] LABS: Basophils % (Manual) 0 % (0.0-1.8); Eosinophils % (Manual) 0 % (0.0-4.3); Total Cells Counted 100
[2021-10-20 19:34] LABS: Anisocytosis 2+; Hypochromasia 3+; Poikilocytosis 2+; Schistocytes Rare
[2021-10-20 19:35] LABS: Large Platelets Few; Ovalocytes 2+; Platelet Estimate Consistent w Auto; Tear Drop Cells 2+
[2021-10-20 19:39] LABS: Platelet Count 31 K/mm3 (140-440)
--- NOTE | 2021-10-20 20:40 | Procedure Note ---
Date of procedure: 10/20/21 Pre-op diagnosis: GI bleed, thrombocytopenia Post-op diagnosis: same Procedure: Right femoral central lumen catheter placed under ultrasound guidance After informed consent was obtained the patient was prepped and draped in usual sterile fashion. A timeout was taken to verify the correct patient, correct procedure, and the correct operative site with the patient's nurse at bedside. Local anesthesia obtained with 1% lidocaine. The Seldinger technique was utilized to access the right femoral vein under ultrasound guidance. A seeker needle was then advanced into the right femoral vein without difficulty. A guidewire was then advanced via the seeker needle into the right femoral vein and the seeker needle subsequently removed over the guidewire. A scalpel was used to incise the skin at the insertion site. A dilator was then advanced over the guidewire into the right femoral vein and subsequently removed. A preflush triple-lumen catheter was then advanced into the right femoral vein without difficulty and the guidewire subsequently removed. All 3 ports flush and drawl with ease. 3-0 silk suture was then utilized to suture the triple-lumen catheter in place. A Biopatch was placed at the insertion site. A sterile dressing was utilized to cover the triple-lumen catheter. Complications none. Estimated blood loss minimal. Specimens none Anesthesia: local Surgeon: JOEY CHERRY Estimated blood loss: minimal Pathology: none Condition: stable Disposition: other
[2021-10-20] MEDS ORDERED: PANTOPRAZOLE 40 MG INJ IV SCH (22:00)
[2021-10-20] MEDS: methylPREDNISolone Sod Succinate 40 MG/1 ML INJ IV SCH (22:49)
[2021-10-20 23:23] LABS: Mean Corpuscular HGB Conc 31 % (32-34); Mean Corpuscular Volume 75 fl (84-94); Red Blood Count 1.97 M/mm3 (3.65-5.03)
[2021-10-20 23:34] LABS: Hematocrit 14.8 % (35.5-45.6); Hemoglobin 4.6 gm/dl (11.8-15.2); Red Cell Distribution Width 28.5 % (13.2-15.2)
[2021-10-20 23:35] LABS: Platelet Count 13 K/mm3 (140-440)
[2021-10-20 23:57] LABS: Basophils % (Manual) 0 % (0.0-1.8); Eosinophils % (Manual) 0 % (0.0-4.3); Monocytes % (Manual) 0 % (0.0-7.3); Total Cells Counted 100
[2021-10-20 23:58] LABS: Anisocytosis 1+; Hypochromasia 1+; Platelet Estimate Consistent w Auto
[2021-10-21] MEDS ORDERED: SODIUM CHLORIDE 0.9% 500 ML 500 ML IV ONE ×2 (00:05→00:07)
[2021-10-21 00:35] LABS: Mucus,Urine FEW /HPF; RBC,Urine < 1.0 /HPF (0.0-6.0); WBC,Urine < 1.0 /HPF (0.0-6.0)
[2021-10-21 00:37] LABS: Bilirubin,Urine Negative (Negative); Color,Urine Yellow (Yellow)
[2021-10-21 00:38] LABS: Blood,Urine Negative (Negative); Urobilinogen,Urine < 2.0 mg/dL (<2.0)
[2021-10-21] MEDS: PANTOPRAZOLE 80 MG in SODIUM CHLORIDE 0.9% 100 ML IV SCH (06:17)
[2021-10-21] MEDS: methylPREDNISolone Sod Succinate 40 MG/1 ML INJ IV SCH (06:17)
[2021-10-21 06:42] LABS: Hematocrit 23.9 % (35.5-45.6); Hemoglobin 7.7 gm/dl (11.8-15.2); Mean Corpuscular HGB Conc 32 % (32-34); Mean Corpuscular Volume 80 fl (84-94); Red Blood Count 2.97 M/mm3 (3.65-5.03)
[2021-10-21 06:49] LABS: Red Cell Distribution Width 25.6 % (13.2-15.2)
[2021-10-21 06:50] LABS: Platelet Count 18 K/mm3 (140-440)
[2021-10-21] MEDS ORDERED: DEXTROSE 50% IN WATER (25GM) 50 ML SYRINGE IV PRN (08:00)
[2021-10-21] MEDS ORDERED: INSULIN LISPRO 100 UNIT/ML SUB-Q ONE (08:33)
--- NOTE | 2021-10-21 09:06 | Electrocardiograph Report ---
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
[2021-10-21 09:31] LABS: Anisocytosis 1+; Basophils % (Manual) 0 % (0.0-1.8); Eosinophils % (Manual) 0 % (0.0-4.3); Hypochromasia 1+; Target Cells Few; Total Cells Counted 100
[2021-10-21 09:32] LABS: Platelet Estimate Consistent w Auto
--- NOTE | 2021-10-21 09:34 | Hem/Onc Consultation ---
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--had normal plt counts for a few months 03/2020: SPEP: faint abn band, hgb electrophoresis nl, EZRA neg, Daren neg H/o AVM, with chronic and active GI bleeding Admitted to [facility] 03/2020--> RBC and steroids, IVIG, presumed AIHA but daren neg readmitted 08/2020 and 10/2020 for severe anemia--> RBC transfusions 12/2020 BMbx negative; cytogenetics normal Now back in [facility] for severe anemia Hgb 1.9, with active GI bleed S/p RBC transfusions Found to have low plt counts again PMH: Alcoholic cirrhosis HCV (treated?) imaging from past few years shows normal-appearing liver and spleen Soc: smoker, h/o alcohol dependence several years ago, per notes DATA REVIEWED BELOW IMPRESSION: Chronic iron deficiency anemia, due to chronic bleeding (AVM) Presumed AIHA , follow daren Doubt MDS, bmbx neg Waldenstroms disease is possible Thombocytopenia, liver dysfunction/cirrhosis, best explained as ITP, maybe causing bleeding tendency Differential diagnosis includes: myelofibrosis, indolent lymphoma, aplastic anemia, PNH, Jlkiv-Virmh-Rigsy/HHT syndrome RECOMMEND: Labs to include repeat SPEP w.ZEINAB, LDH, retic, Daren, PNH screen Liver u/s Ferrlicet 125mg daily while inpatient Transfuse 1 unit pRBC whenever hct <23 Transfuse 1 dose of plts whenever plt count is <20 If thombocytopenia refractory to transfusions, plan for IVIG He will need to see an in-person heme/onc outpatient Laboratory Last Values WBC 7.0 K/mm3 (4.5-11.0) 10/21/21 06:20 Hgb 7.7 gm/dl (11.8-15.2) L D 10/21/21 06:20 Hct 23.9 % (35.5-45.6) L D 10/21/21 06:20 MCV 80 fl (84-94) L 10/21/21 06:20 Plt Count 18 K/mm3 (140-440) L* 10/21/21 06:20 Seg Neuts % (Manual) 87.0 % (40.0-70.0) H 10/20/21 22:22 Lymphocytes % (Manual) 13.0 % (13.4-35.0) L 10/20/21 22:22 Lymphocytes # (Manual) 0.7 K/mm3 (1.2-5.4) L 10/20/21 22:22 PT 21.3 Sec. (12.2-14.9) H 10/20/21 10:19 INR 1.63 (0.87-1.13) H 10/20/21 10:19 APTT 33.0 Sec. (24.2-36.6) 10/20/21 10:19 Creatinine 0.8 mg/dL (0.8-1.3) 10/20/21 10:19 AST 22 units/L (5-40) 10/20/21 10:19 ALT 9 units/L (7-56) 10/20/21 10:19 Alkaline Phosphatase 64 units/L (35-129) 10/20/21 10:19 Total Protein 6.2 g/dL (6.3-8.2) L 10/20/21 10:19 Blood Type A POSITIVE 10/20/21 10:22 Antibody Screen Positive 10/20/21 10:22 Antibody Identification Anti-E 10/20/21 10:22 Crossmatch See Detail 10/20/21 10:22 Past History Past Medical History: anemia, diabetes, GERD, heart failure, other (See HPI) Past Surgical History: No surgical history Social history: single, smoking. denies: alcohol abuse, prescription drug abuse Family history: diabetes, hypertension Medications and Allergies Allergies Allergy/AdvReac Type Severity Reaction Status Date / Time No Known Allergies Allergy Verified 10/20/21 08:49 Home Medications Medication Instructions Recorded Confirmed Last Taken Type Ferrous Gluconate [Ferrous 324 mg PO QDAY #30 04/12/21 04/15/21 Unknown Rx Gluconate 324 MG] Pantoprazole [Protonix TAB] 40 mg PO BID #60 tablet 04/12/21 04/15/21 Unknown Rx AtorvaSTATin [Lipitor] 40 mg PO QHS #30 tablet 04/16/21 Unknown Rx metFORMIN [Glucophage] 500 mg PO QDAY #30 tab 04/16/21 Unknown Rx Active Meds: Active Medications Acetaminophen (Acetaminophen 325 Mg Tab) 650 mg PO Q6H PRN PRN Reason: Pain MILD(1-3)/Fever >100.5/DURÁN Albuterol (Albuterol 2.5 Mg/3 Ml Nebu) 2.5 mg IH Q3HRT PRN PRN Reason: Shortness Of Breath Dextrose (Dextrose 50% In Water (25gm) 50 Ml Syringe) 50 ml IV Q30MIN PRN; Protocol PRN Reason: Hypoglycemia Hydromorphone HCl (Hydromorphone 0.5 Mg/0.5 Ml Inj) 0.5 mg IV Q23H PRN PRN Reason: Pain , Severe (7-10) Pantoprazole Sodium 80 mg/ (Sodium Chloride) 100 mls @ 10 mls/hr IV DIRECT LUCIAN Last Admin: 10/21/21 06:17 Dose: 8 mg/hr, 10 mls/hr Insulin Human Lispro (Insulin Lispro 100 Unit/Ml) 0 unit SUB-Q ACHS LUCIAN; Protocol Methylprednisolone Sodium Succinate (Methylprednisolone Sod Succinate 40 Mg/1 Ml Inj) 40 mg IV Q8HR LUCIAN Last Admin: 10/21/21 06:17 Dose: 40 mg Oxycodone/Acetaminophen (Oxycodone /Acetaminophen 5-325mg Tab) 1 tab PO Q16H PRN PRN Reason: Pain, Moderate (4-6) Sodium Chloride (Sodium Chloride 0.9% 10 Ml Flush Syringe) 10 ml IV BID [facility] Last Admin: 10/21/21 09:09 Dose: 10 ml Sodium Chloride (Sodium Chloride 0.9% 10 Ml Flush Syringe) 10 ml IV PRN PRN PRN Reason: LINE FLUSH Exam - Constitutional Vitals: Last Vital Signs Temp 99.9 F H 10/21/21 07:24 Pulse 96 H 10/21/21 06:01 Resp 15 10/21/21 06:01 BP 134/68 10/21/21 06:01 Pulse Ox 98 10/21/21 06:01 Results - Labs lab Results: Laboratory Results - last 24 hr 10/20/21 10/20/21 10/20/21 10:19 10:19 10:19 WBC 5.6 RBC 1.13 L Hgb 1.9 L* Hct 7.6 L* MCV 67 L MCH 17 L MCHC 26 L RDW 26.8 H Plt Count 31 L Add Manual Diff Complete Total Counted 100 Seg Neutrophils % Seg Neuts % (Manual) 94.0 H Band Neutrophils % 0 Lymphocytes % (Manual) 5.0 L Reactive Lymphs % (Man) 0 Monocytes % (Manual) 1.0 Eosinophils % (Manual) 0 Basophils % (Manual) 0 Metamyelocytes % 0 Myelocytes % 0 Promyelocytes % 0 Blast Cells % 0 Nucleated RBC % Not Reportable Seg Neutrophils # Man 5.3 Band Neutrophils # 0.0 Lymphocytes # (Manual) 0.3 L Abs React Lymphs (Man) 0.0 Monocytes # (Manual) 0.1 Eosinophils # (Manual) 0.0 Basophils # (Manual) 0.0 Metamyelocytes # 0.0 Myelocytes # 0.0 Promyelocytes # 0.0 Blast Cells # 0.0 WBC Morphology Not Reportable Hypersegmented Neuts Not Reportable Hyposegmented Neuts Not Reportable Hypogranular Neuts Not Reportable Smudge Cells Not Reportable Toxic Granulation Not Reportable Toxic Vacuolation Not Reportable Dohle Bodies Not Reportable Pelger-Huet Anomaly Not Reportable Katia Rods Not Reportable Platelet Estimate Consistent w auto Clumped Platelets Not Reportable Plt Clumps, EDTA Not Reportable Large Platelets Few Giant Platelets Not Reportable Platelet Satelliting Not Reportable Plt Morphology Comment Not Reportable RBC Morphology Not Reportable Dimorphic RBCs Not Reportable Polychromasia 1+ Hypochromasia 3+ Poikilocytosis 2+ Anisocytosis 2+ Microcytosis Not Reportable Macrocytosis Not Reportable Spherocytes Not Reportable Pappenheimer Bodies Not Reportable Sickle Cells Not Reportable Target Cells Not Reportable Tear Drop Cells 2+ Ovalocytes 2+ Helmet Cells Not Reportable [place] Bodies Not Reportable Mimbres Rings Not Reportable Luke Cells Not Reportable Bite Cells Not Reportable Crenated Cell Not Reportable Elliptocytes 2+ Acanthocytes (Spur) Not Reportable Rouleaux Not Reportable Hemoglobin C Crystals Not Reportable Schistocytes Rare Malaria parasites Not Reportable Jl Bodies Not Reportable Hem Pathologist Commnt No PT 21.3 H INR 1.63 H APTT 33.0 Sodium 144 Potassium 4.6 Chloride 107.4 H Carbon Dioxide 14 L Anion Gap 27 BUN 29 H Creatinine 0.8 Estimated GFR > 60 BUN/Creatinine Ratio 36 Glucose 200 H POC Glucose Calcium 8.3 L Total Bilirubin 0.80 AST 22 ALT 9 Alkaline Phosphatase 64 Total Protein 6.2 L Albumin 3.9 Albumin/Globulin Ratio 1.7 Urine Color Urine Turbidity Urine pH Ur Specific Mcconnell Urine Protein Urine Glucose (UA) Urine Ketones Urine Blood Urine Nitrite Ur Reducing Substances Urine Bilirubin Urine Ictotest Urine Urobilinogen Ur Leukocyte Esterase Urine WBC (Auto) Urine RBC (Auto) Urine Mucus Blood Type Antibody Screen Antibody Identification Crossmatch 10/20/21 10/20/21 10/20/21 10:22 22:22 22:52 WBC 5.0 RBC 1.97 L Hgb 4.6 L* Hct 14.8 L* D MCV 75 L MCH 23 L MCHC 31 L RDW 28.5 H Plt Count 13 L* Add Manual Diff Complete Total Counted 100 Seg Neutrophils % Seg Neuts % (Manual) 87.0 H Band Neutrophils % 0 Lymphocytes % (Manual) 13.0 L Reactive Lymphs % (Man) 0 Monocytes % (Manual) 0 Eosinophils % (Manual) 0 Basophils % (Manual) 0 Metamyelocytes % 0 Myelocytes % 0 Promyelocytes % 0 Blast Cells % 0 Nucleated RBC % Not Reportable Seg Neutrophils # Man 4.4 Band Neutrophils # 0.0 Lymphocytes # (Manual) 0.7 L Abs React Lymphs (Man) 0.0 Monocytes # (Manual) 0.0 Eosinophils # (Manual) 0.0 Basophils # (Manual) 0.0 Metamyelocytes # 0.0 Myelocytes # 0.0 Promyelocytes # 0.0 Blast Cells # 0.0 WBC Morphology Not Reportable Hypersegmented Neuts Not Reportable Hyposegmented Neuts Not Reportable Hypogranular Neuts Not Reportable Smudge Cells Not Reportable Toxic Granulation Not Reportable Toxic Vacuolation Not Reportable Dohle Bodies Not Reportable Pelger-Huet Anomaly Not Reportable Katia Rods Not Reportable Platelet Estimate Consistent w auto Clumped Platelets Not Reportable Plt Clumps, EDTA Not Reportable Large Platelets Not Reportable Giant Platelets Not Reportable Platelet Satelliting Not Reportable Plt Morphology Comment Not Reportable RBC Morphology Not Reportable Dimorphic RBCs Not Reportable Polychromasia Not Reportable Hypochromasia 1+ Poikilocytosis Not Reportable Anisocytosis 1+ Microcytosis 1+ Macrocytosis Not Reportable Spherocytes Not Reportable Pappenheimer Bodies Not Reportable Sickle Cells Not Reportable Target Cells Not Reportable Tear Drop Cells Not Reportable Ovalocytes Not Reportable Helmet Cells Not Reportable [place] Bodies Not Reportable Mimbres Rings Not Reportable Luke Cells Not Reportable Bite Cells Not Reportable Crenated Cell Not Reportable Elliptocytes Not Reportable Acanthocytes (Spur) Not Reportable Rouleaux Not Reportable Hemoglobin C Crystals Not Reportable Schistocytes Not Reportable Malaria parasites Not Reportable Jl Bodies Not Reportable Hem Pathologist Commnt No PT INR APTT Sodium Potassium Chloride Carbon Dioxide Anion Gap BUN Creatinine Estimated GFR BUN/Creatinine Ratio Glucose POC Glucose Calcium Total Bilirubin AST ALT Alkaline Phosphatase Total Protein Albumin Albumin/Globulin Ratio Urine Color Yellow Urine Turbidity Slightly cloudy Urine pH 5.0 Ur Specific Mcconnell 1.020 Urine Protein 30 mg/dl Urine Glucose (UA) Negative Urine Ketones Trace Urine Blood Negative Urine Nitrite Negative Ur Reducing Substances Not Reportable Urine Bilirubin Negative Urine Ictotest Not Reportable Urine Urobilinogen < 2.0 Ur Leukocyte Esterase Negative Urine WBC (Auto) < 1.0 Urine RBC (Auto) < 1.0 Urine Mucus Few Blood Type A POSITIVE Antibody Screen Positive Antibody Identification Anti-E Crossmatch See Detail 10/21/21 10/21/21 06:20 08:05 WBC 7.0 RBC 2.97 L Hgb 7.7 L D Hct 23.9 L D MCV 80 L MCH 26 L MCHC 32 RDW 25.6 H Plt Count 18 L* Add Manual Diff Total Counted Seg Neutrophils % System Admin Seg Neuts % (Manual) Band Neutrophils % Lymphocytes % (Manual) Reactive Lymphs % (Man) Monocytes % (Manual) Eosinophils % (Manual) Basophils % (Manual) Metamyelocytes % Myelocytes % Promyelocytes % Blast Cells % Nucleated RBC % Seg Neutrophils # Man Band Neutrophils # Lymphocytes # (Manual) Abs React Lymphs (Man) Monocytes # (Manual) Eosinophils # (Manual) Basophils # (Manual) Metamyelocytes # Myelocytes # Promyelocytes # Blast Cells # WBC Morphology Hypersegmented Neuts Hyposegmented Neuts Hypogranular Neuts Smudge Cells Toxic Granulation Toxic Vacuolation Dohle Bodies Pelger-Huet Anomaly Katia Rods Platelet Estimate Clumped Platelets Plt Clumps, EDTA Large Platelets Giant Platelets Platelet Satelliting Plt Morphology Comment RBC Morphology Dimorphic RBCs Polychromasia Hypochromasia Poikilocytosis Anisocytosis Microcytosis Macrocytosis Spherocytes Pappenheimer Bodies Sickle Cells Target Cells Tear Drop Cells Ovalocytes Helmet Cells [place]arez-[place] Bodies Mimbres Rings Adolphus Cells Bite Cells Crenated Cell Elliptocytes Acanthocytes (Spur) Rouleaux Hemoglobin C Crystals Schistocytes Malaria parasites Jl Bodies Hem Pathologist Commnt PT INR APTT Sodium Potassium Chloride Carbon Dioxide Anion Gap BUN Creatinine Estimated GFR BUN/Creatinine Ratio Glucose POC Glucose 251 H Calcium Total Bilirubin AST ALT Alkaline Phosphatase Total Protein Albumin Albumin/Globulin Ratio Urine Color Urine Turbidity Urine pH Ur Specific [place] Urine Protein Urine Glucose (UA) Urine Ketones Urine Blood Urine Nitrite Ur Reducing Substances Urine Bilirubin Urine Ictotest Urine Urobilinogen Ur Leukocyte Esterase Urine WBC (Auto) Urine RBC (Auto) Urine Mucus Blood Type Antibody Screen Antibody Identification Crossmatch
[2021-10-21] MEDS ORDERED: SODIUM CHLORIDE 0.9% 500 ML 500 ML IV NR (10:08)
[2021-10-21 11:28] LABS: BUN/Creatinine Ratio 36; Blood Urea Nitrogen 40 mg/dL (9-20); Calcium 7.8 mg/dL (8.4-10.2); Hemolysis Index 2
[2021-10-21 11:29] LABS: Hematocrit 22.6 % (35.5-45.6); Hemoglobin 7.3 gm/dl (11.8-15.2)
[2021-10-21 11:38] LABS: INR 1.42 (0.87-1.13)
[2021-10-21 11:39] LABS: Partial Thromboplastin Time 36.8 Sec. (24.2-36.6)
[2021-10-21] MEDS: INSULIN LISPRO 100 UNIT/ML SUB-Q SCH ×3 (12:40→23:40)
[2021-10-21] MEDS: SODIUM FERRIC GLUCON/SUCRO 125 MG in SODIUM CHLORIDE 0.9% 100 ML IV SCH (12:41)
[2021-10-21] MEDS ORDERED: SODIUM CHLORIDE 0.9% 500 ML 500 ML IV SCH (13:00)
--- NOTE | 2021-10-21 13:09 | Progress Note ---
<BRIDGET JORDAN - Last Filed: 10/21/21 18:42> Assessment and Plan Assessment and plan: This is a 66-year-old male with known past medical history of DM, OA, symptomatic snemia, ITP, colonic AV Malformation, Nicotine dependence, HCV, GERD, CHF, PSA, and medical noncompliance admitted for severe acute blood loss anemia probably secondary to GI bleed versus ITP Hospital Course to Date 10/21: Patient with active bleeding, large bloody stools and oozing from CVC site this am. Received 4units of PRBCs, worsen plt counts this am, H&H and vital site are stable. On IV steroids, continue to trend H&H and plts, check coags and fibrinogen. Hematology consulted. GI is also following, recommendations noted. Continue protonix gtt, patient switched to clear liquid diet. Hyperglycemia is most likely due to IV steroids, SSI initiated. Assessment and Plan #Acute Blood Loss Anemia 2/2 #GI bleed- H/o AVM #Chronic ITP (Idiopathic Thrombocytopenic Purpura) - Presented with hgb level less than 2, stool occult is positive - With worsen thrombocytopenia this am - s/p 4units of PRBCs - Patient is oozing from CVC site and had a large bloody stools this am - On protonix gtt and IV steroids - GI consulted, appreciate recommendations - Continue PPI, switched patient to clear liquid diet - Continue to trend H&H and plts. Will also check coags and Fibrinogen - Hematology consulted - Transfer for Hgb less than 7 #Syncope - Probably due to low BP secondary to above - s/p multiple blood products - BP stable, sx resolved - Continue to trend H&H - Continue blood pressure monitor per protocol - Maintain MAP above 65 #Type 2 Diabetes Mellitus with Hyperglycemia - most likely due to IV steroids - BG check ACHS and SSI initiated - Consider Lantus qhs if persist - While critically ill target blood glucose of 140-180 #Hepatitis C - Chronic, supportive care, outpatient GI follow-up. #GI/ DVT Prophylaxis - PPI- pepcid - SCDs bilateral lower extremities while in bed #Advance Care Planning - Disease education data, care plan, diagnoses, and prognosis were discussed with patient at the bedside. Patient is a FULL code. Patient acknowledged understanding and agreed with current care plan. The high probability of a clinically significant, sudden or life threatening deterioration of the [multiple] system(s) required my full and direct attention, intervention and personal management. The aggregate critical care time was [60] minutes. This time is in addition to time spent performing reported procedures but includes the following: [x] Data Review and interpretation [x] Patient assessment and monitoring of vital signs [x] Documentation [x] Medication orders and management Disposition Plan: IMCU Total Time Spent with Patient (Minutes): 60 History Interval history: Patient seen and examined at the bedside. Fully AAO, on RA, denied any pain nor any discomfort at this time. Patient is bleeding from CVC site and had a large bloody stools this am, s/p 4units of PRBCs. H&H and vital signs stable this am. Patient remains on protonix gtt. JENELLE overnight Hospitalist Physical - Constitutional Vitals: Temp Pulse Resp BP Pulse Ox 99.2 F 96 H 15 134/68 98 10/21/21 11:42 10/21/21 06:01 10/21/21 06:01 10/21/21 06:01 10/21/21 06:01 General appearance: Present: no acute distress, cachectic - EENT Eyes: Present: PERRL, EOM intact ENT: hearing intact - Neck Neck: Present: normal ROM - Respiratory Respiratory effort: normal Respiratory: bilateral: CTA - Cardiovascular Rhythm: regular Heart Sounds: Present: S1 & S2 - Extremities Extremities: no ischemia, pulses intact, pulses symmetrical Peripheral Pulses: within normal limits - Abdominal General gastrointestinal: soft, non-distended, normal bowel sounds - Integumentary Integumentary: Present: warm, dry - Psychiatric Psychiatric: appropriate mood/affect, cooperative - Neurologic Neurologic: CNII-XII intact, moves all extremities - Allied Health Allied health notes reviewed: nursing Results - Labs CBC & Chem 7: 10/21/21 10:46 10/21/21 10:46 Labs: Laboratory Last Values WBC 7.0 K/mm3 (4.5-11.0) 10/21/21 06:20 RBC 2.97 M/mm3 (3.65-5.03) L 10/21/21 06:20 Hgb 7.3 gm/dl (11.8-15.2) L 10/21/21 10:46 Hct 22.6 % (35.5-45.6) L 10/21/21 10:46 MCV 80 fl (84-94) L 10/21/21 06:20 MCH 26 pg (28-32) L 10/21/21 06:20 MCHC 32 % (32-34) 10/21/21 06:20 RDW 25.6 % (13.2-15.2) H 10/21/21 06:20 Plt Count 17 K/mm3 (140-440) L* 10/21/21 10:46 Add Manual Diff Complete 10/21/21 06:20 Total Counted 100 10/21/21 06:20 Seg Neutrophils % Employee Training Specialist 10/21/21 06:20 Seg Neuts % (Manual) 95.0 % (40.0-70.0) H 10/21/21 06:20 Band Neutrophils % 0 % 10/21/21 06:20 Lymphocytes % (Manual) 2.0 % (13.4-35.0) L 10/21/21 06:20 Reactive Lymphs % (Man) 0 % 10/21/21 06:20 Monocytes % (Manual) 3.0 % (0.0-7.3) 10/21/21 06:20 Eosinophils % (Manual) 0 % (0.0-4.3) 10/21/21 06:20 Basophils % (Manual) 0 % (0.0-1.8) 10/21/21 06:20 Metamyelocytes % 0 % 10/21/21 06:20 Myelocytes % 0 % 10/21/21 06:20 Promyelocytes % 0 % 10/21/21 06:20 Blast Cells % 0 % 10/21/21 06:20 Nucleated RBC % Not Reportable 10/21/21 06:20 Seg Neutrophils # Man 6.7 K/mm3 (1.8-7.7) 10/21/21 06:20 Band Neutrophils # 0.0 K/mm3 10/21/21 06:20 Lymphocytes # (Manual) 0.1 K/mm3 (1.2-5.4) L 10/21/21 06:20 Abs React Lymphs (Man) 0.0 K/mm3 10/21/21 06:20 Monocytes # (Manual) 0.2 K/mm3 (0.0-0.8) 10/21/21 06:20 Eosinophils # (Manual) 0.0 K/mm3 (0.0-0.4) 10/21/21 06:20 Basophils # (Manual) 0.0 K/mm3 (0.0-0.1) 10/21/21 06:20 Metamyelocytes # 0.0 K/mm3 10/21/21 06:20 Myelocytes # 0.0 K/mm3 10/21/21 06:20 Promyelocytes # 0.0 K/mm3 10/21/21 06:20 Blast Cells # 0.0 K/mm3 10/21/21 06:20 WBC Morphology Not Reportable 10/21/21 06:20 Hypersegmented Neuts Not Reportable 10/21/21 06:20 Hyposegmented Neuts Not Reportable 10/21/21 06:20 Hypogranular Neuts Not Reportable 10/21/21 06:20 Smudge Cells Not Reportable 10/21/21 06:20 Toxic Granulation Not Reportable 10/21/21 06:20 Toxic Vacuolation Not Reportable 10/21/21 06:20 Dohle Bodies Not Reportable 10/21/21 06:20 Pelger-Huet Anomaly Not Reportable 10/21/21 06:20 Katia Rods Not Reportable 10/21/21 06:20 Platelet Estimate Consistent w auto 10/21/21 06:20 Clumped Platelets Not Reportable 10/21/21 06:20 Plt Clumps, EDTA Not Reportable 10/21/21 06:20 Large Platelets Not Reportable 10/21/21 06:20 Giant Platelets Not Reportable 10/21/21 06:20 Platelet Satelliting Not Reportable 10/21/21 06:20 Plt Morphology Comment Not Reportable 10/21/21 06:20 RBC Morphology Not Reportable 10/21/21 06:20 Dimorphic RBCs Not Reportable 10/21/21 06:20 Polychromasia Few 10/21/21 06:20 Hypochromasia 1+ 10/21/21 06:20 Poikilocytosis Not Reportable 10/21/21 06:20 Anisocytosis 1+ 10/21/21 06:20 Microcytosis Not Reportable 10/21/21 06:20 Macrocytosis Not Reportable 10/21/21 06:20 Spherocytes Not Reportable 10/21/21 06:20 Pappenheimer Bodies Not Reportable 10/21/21 06:20 Sickle Cells Not Reportable 10/21/21 06:20 Target Cells Few 10/21/21 06:20 Tear Drop Cells Not Reportable 10/21/21 06:20 Ovalocytes Not Reportable 10/21/21 06:20 Helmet Cells Not Reportable 10/21/21 06:20 Suarez-Sangrey Bodies Not Reportable 10/21/21 06:20 Beaver Rings Not Reportable 10/21/21 06:20 Luke Cells Not Reportable 10/21/21 06:20 Bite Cells Not Reportable 10/21/21 06:20 Crenated Cell Not Reportable 10/21/21 06:20 Elliptocytes Not Reportable 10/21/21 06:20 Acanthocytes (Spur) Not Reportable 10/21/21 06:20 Rouleaux Not Reportable 10/21/21 06:20 Hemoglobin C Crystals Not Reportable 10/21/21 06:20 Schistocytes Not Reportable 10/21/21 06:20 Malaria parasites Not Reportable 10/21/21 06:20 Percent Retic 3.37 % (0.78-2.58) H 10/21/21 10:46 Jl Bodies Not Reportable 10/21/21 06:20 Hem Pathologist Commnt No 10/21/21 06:20 PT 19.1 Sec. (12.2-14.9) H 10/21/21 10:46 INR 1.42 (0.87-1.13) H 10/21/21 10:46 APTT 36.8 Sec. (24.2-36.6) H 10/21/21 10:46 Fibrinogen 133 mg/dl (211-480) L* 10/21/21 10:46 Sodium 139 mmol/L (137-145) 10/21/21 10:46 Potassium 4.8 mmol/L (3.6-5.0) 10/21/21 10:46 Chloride 107.1 mmol/L (98-107) H 10/21/21 10:46 Carbon Dioxide 19 mmol/L (22-30) L 10/21/21 10:46 Anion Gap 18 mmol/L 10/21/21 10:46 BUN 40 mg/dL (9-20) H 10/21/21 10:46 Creatinine 1.1 mg/dL (0.8-1.3) 10/21/21 10:46 Estimated GFR > 60 ml/min 10/21/21 10:46 BUN/Creatinine Ratio 36 % 10/21/21 10:46 Glucose 239 mg/dL (75-100) H 10/21/21 10:46 POC Glucose 224 mg/dL (70-105) H 10/21/21 11:16 Calcium 7.8 mg/dL (8.4-10.2) L 10/21/21 10:46 Total Bilirubin 0.80 mg/dL (0.1-1.2) 10/20/21 10:19 AST 22 units/L (5-40) 10/20/21 10:19 ALT 9 units/L (7-56) 10/20/21 10:19 Alkaline Phosphatase 64 units/L (35-129) 10/20/21 10:19 Lactate Dehydrogenase 401 units/L (91-180) H 10/21/21 10:46 Total Protein 6.2 g/dL (6.3-8.2) L 10/20/21 10:19 Albumin 3.9 g/dL (3.9-5) 10/20/21 10:19 Albumin/Globulin Ratio 1.7 % 10/20/21 10:19 Urine Color Yellow (Yellow) 10/20/21 22:52 Urine Turbidity Slightly cloudy (Clear) 10/20/21 22:52 Urine pH 5.0 (5.0-7.0) 10/20/21 22:52 Ur Specific Howells 1.020 (1.003-1.030) 10/20/21 22:52 Urine Protein 30 mg/dl mg/dL (Negative) 10/20/21 22:52 Urine Glucose (UA) Negative mg/dL (Negative) 10/20/21 22:52 Urine Ketones Trace mg/dL (Negative) 10/20/21 22:52 Urine Blood Negative (Negative) 10/20/21 22:52 Urine Nitrite Negative (Negative) 10/20/21 22:52 Ur Reducing Substances Not Reportable 10/20/21 22:52 Urine Bilirubin Negative (Negative) 10/20/21 22:52 Urine Ictotest Not Reportable 10/20/21 22:52 Urine Urobilinogen < 2.0 mg/dL (<2.0) 10/20/21 22:52 Ur Leukocyte Esterase Negative (Negative) 10/20/21 22:52 Urine WBC (Auto) < 1.0 /HPF (0.0-6.0) 10/20/21 22:52 Urine RBC (Auto) < 1.0 /HPF (0.0-6.0) 10/20/21 22:52 Urine Mucus Few /HPF 10/20/21 22:52 Blood Type A POSITIVE 10/20/21 10:22 Antibody Screen Positive 10/20/21 10:22 Antibody Identification Anti-E 10/20/21 10:22 Direct Antiglob Test Negative 10/21/21 10:46 SLIM, Poly Interpret Negative 10/21/21 10:46 Crossmatch See Detail 10/20/21 10:22 Microbiology: Microbiology 10/20/21 Unknown Stool Stool Occult Blood (OSKAR) - Final Parker/IV: Voiding Method Condom Catheter Active Medications - Current Medications Current Medications: Generic Name Dose Route Start Last Admin Trade Name Freq PRN Reason Stop Dose Admin Acetaminophen 650 mg 10/20/21 15:00 Acetaminophen 325 Mg Tab PO Q6H PRN Pain MILD(1-3)/Fever >100.5/DURÁN Albuterol 2.5 mg 10/20/21 15:00 Albuterol 2.5 Mg/3 Ml Nebu IH Q3HRT PRN Shortness Of Breath Dextrose 50 ml 10/21/21 08:00 Dextrose 50% In Water (25gm) 50 Ml Syringe IV Q30MIN PRN Hypoglycemia Protocol Hydromorphone HCl 0.5 mg 10/20/21 15:00 Hydromorphone 0.5 Mg/0.5 Ml Inj IV Q23H PRN Pain , Severe (7-10) Pantoprazole Sodium 80 mg/ 100 mls @ 10 mls/hr 10/20/21 11:00 10/21/21 06:17 Sodium Chloride IV 8 mg/hr DIRECT LUCIAN 10 mls/hr Administration 8 MG/HR Sodium Chloride 500 mls @ 0 mls/hr 10/21/21 10:08 Nacl 0.9% 500 Ml IV 10/21/21 23:59 ONCE NR As Directed Ferric Sodium Gluconate 110 mls @ 100 mls/hr 10/21/21 11:00 10/21/21 12:41 Complex 125 mg/ Sodium IV 10/28/21 11:05 100 mls/hr Chloride DAILY LUCIAN Administration Dexamethasone 20 mg/ Sodium 55 mls @ 100 mls/hr 10/21/21 13:00 Chloride IV 10/24/21 22:32 Q12HR LUCIAN Sodium Chloride 500 mls @ 0 mls/hr 10/21/21 13:00 Nacl 0.9% 500 Ml IV 10/21/21 20:00 ONCE@1300 LUCIAN As Directed Insulin Human Lispro 0 unit 10/21/21 11:30 10/21/21 12:40 Insulin Lispro 100 Unit/Ml SUB-Q 3 unit ACHS LUCIAN Administration Protocol Oxycodone/Acetaminophen 1 tab 10/20/21 15:00 Oxycodone /Acetaminophen 5-325mg Tab PO Q16H PRN Pain, Moderate (4-6) Sodium Chloride 10 ml 10/20/21 15:00 10/21/21 09:09 Sodium Chloride 0.9% 10 Ml Flush Syringe IV 10 ml BID LUCIAN Administration Sodium Chloride 10 ml 10/20/21 15:00 Sodium Chloride 0.9% 10 Ml Flush Syringe IV PRN PRN LINE FLUSH <DEXTER HOLLEY - Last Filed: 10/28/21 11:25> History Interval history: I saw and evaluated the patient. I agree with the findings and the plan of care as documented in the Nurse Practitioner's~note, with the following corrections and additions. Hospitalist Physical - Constitutional Vitals: Temp Pulse Resp BP Pulse Ox 98.8 F 92 H 18 133/59 100 10/26/21 03:46 10/26/21 10:00 10/26/21 08:00 10/26/21 08:18 10/26/21 08:00 HEART Score - HEART Score Troponin: Troponin T 0.046 ng/mL (0.00-0.029) H 10/26/21 08:58 Results - Labs CBC & Chem 7: 10/25/21 04:20 10/25/21 04:20 Labs: Laboratory Last Values WBC 10.9 K/mm3 (4.5-11.0) 10/25/21 04:20 RBC 3.53 M/mm3 (3.65-5.03) L 10/25/21 04:20 Hgb 9.6 gm/dl (11.8-15.2) L 10/25/21 04:20 Hct 29.3 % (35.5-45.6) L 10/25/21 04:20 MCV 83 fl (84-94) L 10/25/21 04:20 MCH 27 pg (28-32) L 10/25/21 04:20 MCHC 33 % (32-34) 10/25/21 04:20 RDW 22.2 % (13.2-15.2) H 10/25/21 04:20 Plt Count 62 K/mm3 (140-440) L D 10/25/21 04:20 Add Manual Diff Complete 10/21/21 06:20 Total Counted 100 10/21/21 06:20 Seg Neutrophils % Employee Training Specialist 10/21/21 06:20 Seg Neuts % (Manual) 95.0 % (40.0-70.0) H 10/21/21 06:20 Band Neutrophils % 0 % 10/21/21 06:20 Lymphocytes % (Manual) 2.0 % (13.4-35.0) L 10/21/21 06:20 Reactive Lymphs % (Man) 0 % 10/21/21 06:20 Monocytes % (Manual) 3.0 % (0.0-7.3) 10/21/21 06:20 Eosinophils % (Manual) 0 % (0.0-4.3) 10/21/21 06:20 Basophils % (Manual) 0 % (0.0-1.8) 10/21/21 06:20 Metamyelocytes % 0 % 10/21/21 06:20 Myelocytes % 0 % 10/21/21 06:20 Promyelocytes % 0 % 10/21/21 06:20 Blast Cells % 0 % 10/21/21 06:20 Nucleated RBC % Not Reportable 10/21/21 06:20 Seg Neutrophils # Man 6.7 K/mm3 (1.8-7.7) 10/21/21 06:20 Band Neutrophils # 0.0 K/mm3 10/21/21 06:20 Lymphocytes # (Manual) 0.1 K/mm3 (1.2-5.4) L 10/21/21 06:20 Abs React Lymphs (Man) 0.0 K/mm3 10/21/21 06:20 Monocytes # (Manual) 0.2 K/mm3 (0.0-0.8) 10/21/21 06:20 Eosinophils # (Manual) 0.0 K/mm3 (0.0-0.4) 10/21/21 06:20 Basophils # (Manual) 0.0 K/mm3 (0.0-0.1) 10/21/21 06:20 Metamyelocytes # 0.0 K/mm3 10/21/21 06:20 Myelocytes # 0.0 K/mm3 10/21/21 06:20 Promyelocytes # 0.0 K/mm3 10/21/21 06:20 Blast Cells # 0.0 K/mm3 10/21/21 06:20 WBC Morphology Not Reportable 10/21/21 06:20 Hypersegmented Neuts Not Reportable 10/21/21 06:20 Hyposegmented Neuts Not Reportable 10/21/21 06:20 Hypogranular Neuts Not Reportable 10/21/21 06:20 Smudge Cells Not Reportable 10/21/21 06:20 Toxic Granulation Not Reportable 10/21/21 06:20 Toxic Vacuolation Not Reportable 10/21/21 06:20 Dohle Bodies Not Reportable 10/21/21 06:20 Pelger-Huet Anomaly Not Reportable 10/21/21 06:20 Katia Rods Not Reportable 10/21/21 06:20 Platelet Estimate Consistent w auto 10/21/21 06:20 Clumped Platelets Not Reportable 10/21/21 06:20 Plt Clumps, EDTA Not Reportable 10/21/21 06:20 Large Platelets Not Reportable 10/21/21 06:20 Giant Platelets Not Reportable 10/21/21 06:20 Platelet Satelliting Not Reportable 10/21/21 06:20 Plt Morphology Comment Not Reportable 10/21/21 06:20 RBC Morphology Not Reportable 10/21/21 06:20 Dimorphic RBCs Not Reportable 10/21/21 06:20 Polychromasia Few 10/21/21 06:20 Hypochromasia 1+ 10/21/21 06:20 Poikilocytosis Not Reportable 10/21/21 06:20 Anisocytosis 1+ 10/21/21 06:20 Microcytosis Not Reportable 10/21/21 06:20 Macrocytosis Not Reportable 10/21/21 06:20 Spherocytes Not Reportable 10/21/21 06:20 Pappenheimer Bodies Not Reportable 10/21/21 06:20 Sickle Cells Not Reportable 10/21/21 06:20 Target Cells Few 10/21/21 06:20 Tear Drop Cells Not Reportable 10/21/21 06:20 Ovalocytes Not Reportable 10/21/21 06:20 Helmet Cells Not Reportable 10/21/21 06:20 Suarez-Sangrey Bodies Not Reportable 10/21/21 06:20 Beaver Rings Not Reportable 10/21/21 06:20 Luke Cells Not Reportable 10/21/21 06:20 Bite Cells Not Reportable 10/21/21 06:20 Crenated Cell Not Reportable 10/21/21 06:20 Elliptocytes Not Reportable 10/21/21 06:20 Acanthocytes (Spur) Not Reportable 10/21/21 06:20 Rouleaux Not Reportable 10/21/21 06:20 Hemoglobin C Crystals Not Reportable 10/21/21 06:20 Schistocytes Not Reportable 10/21/21 06:20 Malaria parasites Not Reportable 10/21/21 06:20 Percent Retic 3.37 % (0.78-2.58) H 10/21/21 10:46 Jl Bodies Not Reportable 10/21/21 06:20 Hem Pathologist Commnt No 10/21/21 06:20 PT 15.2 Sec. (12.2-14.9) H 10/23/21 13:25 INR 1.08 (0.87-1.13) 10/23/21 13:25 APTT 25.6 Sec. (24.2-36.6) 10/23/21 13:25 Fibrinogen 191 mg/dl (211-480) L 10/23/21 13:25 Sodium 134 mmol/L (137-145) L 10/25/21 04:20 Potassium 4.2 mmol/L (3.6-5.0) 10/25/21 04:20 Chloride 100.3 mmol/L (98-107) 10/25/21 04:20 Carbon Dioxide 29 mmol/L (22-30) 10/25/21 04:20 Anion Gap 9 mmol/L 10/25/21 04:20 BUN 19 mg/dL (9-20) 10/25/21 04:20 Creatinine 0.7 mg/dL (0.8-1.3) L 10/25/21 04:20 Estimated GFR > 60 ml/min 10/25/21 04:20 BUN/Creatinine Ratio 27 % 10/25/21 04:20 Glucose 299 mg/dL (75-100) H 10/25/21 04:20 POC Glucose 149 mg/dL (70-105) H 10/26/21 11:21 Calcium 9.3 mg/dL (8.4-10.2) 10/25/21 04:20 Total Bilirubin 1.30 mg/dL (0.1-1.2) H 10/23/21 13:50 AST 34 units/L (5-40) 10/23/21 13:50 ALT 71 units/L (7-56) H 10/23/21 13:50 Alkaline Phosphatase 69 units/L (35-129) 10/23/21 13:50 Lactate Dehydrogenase 401 units/L (91-180) H 10/21/21 10:46 Total Creatine Kinase 39 units/L (55-170) L 10/26/21 08:58 CK-MB (CK-2) 2.0 ng/mL (0.0-4.0) 10/26/21 08:58 CK-MB (CK-2) Rel Index 5.1 (0-4) H 10/26/21 08:58 Troponin T 0.046 ng/mL (0.00-0.029) H 10/26/21 08:58 Total Protein 5.2 g/dL (6.3-8.2) L 10/23/21 13:50 Albumin 3.6 g/dL (3.9-5) L 10/23/21 13:50 Albumin/Globulin Ratio 2.3 % 10/23/21 13:50 Triglycerides 89 mg/dL (2-149) 10/26/21 08:58 Cholesterol 76 mg/dL (50-199) 10/26/21 08:58 LDL Cholesterol Direct 37 mg/dL (50-130) L 10/26/21 08:58 HDL Cholesterol 31 mg/dL (40-59) L 10/26/21 08:58 Cholesterol/HDL Ratio 2.45 % 10/26/21 08:58 Urine Color Yellow (Yellow) 10/20/21 22:52 Urine Turbidity Slightly cloudy (Clear) 10/20/21 22:52 Urine pH 5.0 (5.0-7.0) 10/20/21 22:52 Ur Specific Howells 1.020 (1.003-1.030) 10/20/21 22:52 Urine Protein 30 mg/dl mg/dL (Negative) 10/20/21 22:52 Urine Glucose (UA) Negative mg/dL (Negative) 10/20/21 22:52 Urine Ketones Trace mg/dL (Negative) 10/20/21 22:52 Urine Blood Negative (Negative) 10/20/21 22:52 Urine Nitrite Negative (Negative) 10/20/21 22:52 Ur Reducing Substances Not Reportable 10/20/21 22:52 Urine Bilirubin Negative (Negative) 10/20/21 22:52 Urine Ictotest Not Reportable 10/20/21 22:52 Urine Urobilinogen < 2.0 mg/dL (<2.0) 10/20/21 22:52 Ur Leukocyte Esterase Negative (Negative) 10/20/21 22:52 Urine WBC (Auto) < 1.0 /HPF (0.0-6.0) 10/20/21 22:52 Urine RBC (Auto) < 1.0 /HPF (0.0-6.0) 10/20/21 22:52 Urine Mucus Few /HPF 10/20/21 22:52 Cardiolipid IgG Ab <2.0 GPL-U/mL (<20.0) 10/22/21 06:10 Cardiolipid IgA Ab <2.0 APL-U/mL (<20.0) 10/22/21 06:10 Cardiolipid IgM Ab <2.0 MPL-U/mL (<20.0) 10/22/21 06:10 Blood Type A POSITIVE 10/24/21 03:24 Antibody Screen Positive 10/20/21 10:22 Antibody Identification Anti-E 10/20/21 10:22 Direct Antiglob Test Negative 10/22/21 06:10 SLIM, Poly Interpret Negative 10/22/21 06:10 Crossmatch See Detail 10/20/21 10:22 Parker/IV: Voiding Method Urinal Nutrition/Malnutrition Assess - Dietary Evaluation Nutrition/Malnutrition Findings: Nutrition Notes Start: 10/21/21 15:21 Freq: Status: Discharge Protocol: Document 10/24/21 12:35 ROSEANNE (Rec: 10/24/21 13:11 ROSEANNE [id number]) Nutrition Notes Need for Assessment generated from: Low BMI Initial or Follow up Assessment Current Diagnosis Diabetes,Malnutrition Other Pertinent Diagnosis Anemia, ITP Chronic Bleeding S /Cirrhosis, Hepatitis C, Syncope, CHF, OA... Current Diet GI Soft Diet (since B 10/24). Labs/Tests 10/24: Crea 0.5. Pertinent Medications 10/24: Ferric Sodium Gluconate Complex 125mg, Lantus 20U, others nutritionally unremarkable. Height 5 ft 6 in Weight 45.7 kg Adona Body Weight (kg) 64.54 BMI 16.2 Weight change and time frame Discrepancy of 10.969 Kg body weight loss reported in 3 days . Weight Status Underweight Subjective/Other Information RD consult for Low BMI assessment. Pt diet changed to Clear Liquids, to Full Liquids, and finally advanced to GI Soft, no reports available on Pt's PO intake at the time, will assess at F/U. Pt is on Room Air, O2 saturation @ 99%, according to Physical Assessment History notes. Pt has missing teeth, according to Physical Assessment History notes. Pt does not present diarrhea with hemoccult positive any longer, according to Progress notes. Pt is s/p transfussion of 6U PRBCs, 2U Plts, and 1 Cryo, according to Progress notes. Pt's Low BMI seems to correspond to a natural body composition, and not related to a sudden loss of body weight nor chronic malnutrition, since no signs of concern were mentioned in the Physical Assessment History or the Progress notes. Percent of energy/protein needs met: Prescribed GI Soft Diet provides for energy/protein needs (2,000 Kcal/82 g) during LOS. Burn Absent Trauma Absent GI Symptoms Other Food Allergy No Skin Integrity/Comment Assessment WNL. 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 Etiology Possibly associated with Hepatitis C/Cirrhosis. As Evidenced by Signs and Symptoms BMI: 16.2 Kg/m2. Is patient on ventilator? No Is Patient Ambulatory and/or Out of Bed Yes [facility] Jeor-ambulatory/OOB) [ 1527.175 [id number]] Kcal/Kg value to use for calculation 36 Approximate Energy Requirements Using 1645 kcal/Kg Calculation Used for Recommendations Kcal/kg Additional Notes Protein: 1-1.2 g/Kg ABW; 46-55 g/day. Fluids: 1 ml/Kcal, or as per MD. Nutrition Intervention Change Diet Order: Continue GI Soft Diet as tolerated, advance to Consistent Carbohydrates as tolerated. Goal #1 Adjust the dietary intervention to better serve Pt's needs and clinical conditions during LOS. Follow-Up By: 10/31/21 Additional Comments Continue monitoring food tolerance, %PO intake of meals , dietary supplements, and BM.
--- NOTE | 2021-10-21 13:09 | Gastroenterology Progress Note ---
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 - I recommend continue current protonix, and OK to have clear liquids. - Heme/Onc note reviewed; suggest transfer (if does not respond to steroids/IVIG) to facility with inpatient HemeOnc. - No plans for endoscopy; we will sign off; please call if needed. Subjective Date of service: 10/21/21 Principal diagnosis: Anemia Interval history: The patient has had oozing from IV sites and dark stools, but no nose or gum bleeds. He is tolerating a regular diet. Objective - Constitutional Vitals: Temp Pulse Resp BP Pulse Ox 99.2 F 96 H 15 134/68 98 10/21/21 11:42 10/21/21 06:01 10/21/21 06:01 10/21/21 06:01 10/21/21 06:01 General appearance: no acute distress - Respiratory Respiratory effort: normal Respiratory: bilateral: CTA - Cardiovascular Rhythm: regular Heart Sounds: Present: S1 & S2 - Gastrointestinal General gastrointestinal: Present: soft, non-tender, non-distended - Labs CBC & Chem 7: 10/21/21 10:46 10/21/21 10:46 Labs: Laboratory Results - last 24 hr 10/20/21 10/20/21 10/20/21 10:19 10:22 22:22 WBC 5.6 5.0 RBC 1.13 L 1.97 L Hgb 1.9 L* 4.6 L* Hct 7.6 L* 14.8 L* D MCV 67 L 75 L MCH 17 L 23 L MCHC 26 L 31 L RDW 26.8 H 28.5 H Plt Count 31 L 13 L* Add Manual Diff Complete Complete Total Counted 100 100 Seg Neutrophils % Seg Neuts % (Manual) 94.0 H 87.0 H Band Neutrophils % 0 0 Lymphocytes % (Manual) 5.0 L 13.0 L Reactive Lymphs % (Man) 0 0 Monocytes % (Manual) 1.0 0 Eosinophils % (Manual) 0 0 Basophils % (Manual) 0 0 Metamyelocytes % 0 0 Myelocytes % 0 0 Promyelocytes % 0 0 Blast Cells % 0 0 Nucleated RBC % Not Reportable Not Reportable Seg Neutrophils # Man 5.3 4.4 Band Neutrophils # 0.0 0.0 Lymphocytes # (Manual) 0.3 L 0.7 L Abs React Lymphs (Man) 0.0 0.0 Monocytes # (Manual) 0.1 0.0 Eosinophils # (Manual) 0.0 0.0 Basophils # (Manual) 0.0 0.0 Metamyelocytes # 0.0 0.0 Myelocytes # 0.0 0.0 Promyelocytes # 0.0 0.0 Blast Cells # 0.0 0.0 WBC Morphology Not Reportable Not Reportable Hypersegmented Neuts Not Reportable Not Reportable Hyposegmented Neuts Not Reportable Not Reportable Hypogranular Neuts Not Reportable Not Reportable Smudge Cells Not Reportable Not Reportable Toxic Granulation Not Reportable Not Reportable Toxic Vacuolation Not Reportable Not Reportable Dohle Bodies Not Reportable Not Reportable Pelger-Huet Anomaly Not Reportable Not Reportable Katia Rods Not Reportable Not Reportable Platelet Estimate Consistent w auto Consistent w auto Clumped Platelets Not Reportable Not Reportable Plt Clumps, EDTA Not Reportable Not Reportable Large Platelets Few Not Reportable Giant Platelets Not Reportable Not Reportable Platelet Satelliting Not Reportable Not Reportable Plt Morphology Comment Not Reportable Not Reportable RBC Morphology Not Reportable Not Reportable Dimorphic RBCs Not Reportable Not Reportable Polychromasia 1+ Not Reportable Hypochromasia 3+ 1+ Poikilocytosis 2+ Not Reportable Anisocytosis 2+ 1+ Microcytosis Not Reportable 1+ Macrocytosis Not Reportable Not Reportable Spherocytes Not Reportable Not Reportable Pappenheimer Bodies Not Reportable Not Reportable Sickle Cells Not Reportable Not Reportable Target Cells Not Reportable Not Reportable Tear Drop Cells 2+ Not Reportable Ovalocytes 2+ Not Reportable Helmet Cells Not Reportable Not Reportable [place] Bodies Not Reportable Not Reportable [place] Rings Not Reportable Not Reportable Luke Cells Not Reportable Not Reportable Bite Cells Not Reportable Not Reportable Crenated Cell Not Reportable Not Reportable Elliptocytes 2+ Not Reportable Acanthocytes (Spur) Not Reportable Not Reportable Rouleaux Not Reportable Not Reportable Hemoglobin C Crystals Not Reportable Not Reportable Schistocytes Rare Not Reportable Malaria parasites Not Reportable Not Reportable Percent Retic Jl Bodies Not Reportable Not Reportable Hem Pathologist Commnt No No PT INR APTT Fibrinogen Sodium Potassium Chloride Carbon Dioxide Anion Gap BUN Creatinine Estimated GFR BUN/Creatinine Ratio Glucose POC Glucose Calcium Lactate Dehydrogenase Urine Color Urine Turbidity Urine pH Ur Specific [place] Urine Protein Urine Glucose (UA) Urine Ketones Urine Blood Urine Nitrite Ur Reducing Substances Urine Bilirubin Urine Ictotest Urine Urobilinogen Ur Leukocyte Esterase Urine WBC (Auto) Urine RBC (Auto) Urine Mucus Blood Type A POSITIVE Antibody Screen Positive Antibody Identification Anti-E Direct Antiglob Test SLIM, Poly Interpret Crossmatch See Detail 10/20/21 10/21/21 10/21/21 22:52 06:20 08:05 WBC 7.0 RBC 2.97 L Hgb 7.7 L D Hct 23.9 L D MCV 80 L MCH 26 L MCHC 32 RDW 25.6 H Plt Count 18 L* Add Manual Diff Complete Total Counted 100 Seg Neutrophils % Ergonomics Engineer Seg Neuts % (Manual) 95.0 H Band Neutrophils % 0 Lymphocytes % (Manual) 2.0 L Reactive Lymphs % (Man) 0 Monocytes % (Manual) 3.0 Eosinophils % (Manual) 0 Basophils % (Manual) 0 Metamyelocytes % 0 Myelocytes % 0 Promyelocytes % 0 Blast Cells % 0 Nucleated RBC % Not Reportable Seg Neutrophils # Man 6.7 Band Neutrophils # 0.0 Lymphocytes # (Manual) 0.1 L Abs React Lymphs (Man) 0.0 Monocytes # (Manual) 0.2 Eosinophils # (Manual) 0.0 Basophils # (Manual) 0.0 Metamyelocytes # 0.0 Myelocytes # 0.0 Promyelocytes # 0.0 Blast Cells # 0.0 WBC Morphology Not Reportable Hypersegmented Neuts Not Reportable Hyposegmented Neuts Not Reportable Hypogranular Neuts Not Reportable Smudge Cells Not Reportable Toxic Granulation Not Reportable Toxic Vacuolation Not Reportable Dohle Bodies Not Reportable Pelger-Huet Anomaly Not Reportable Katia Rods Not Reportable Platelet Estimate Consistent w auto Clumped Platelets Not Reportable Plt Clumps, EDTA Not Reportable Large Platelets Not Reportable Giant Platelets Not Reportable Platelet Satelliting Not Reportable Plt Morphology Comment Not Reportable RBC Morphology Not Reportable Dimorphic RBCs Not Reportable Polychromasia Few Hypochromasia 1+ Poikilocytosis Not Reportable Anisocytosis 1+ Microcytosis Not Reportable Macrocytosis Not Reportable Spherocytes Not Reportable Pappenheimer Bodies Not Reportable Sickle Cells Not Reportable Target Cells Few Tear Drop Cells Not Reportable Ovalocytes Not Reportable Helmet Cells Not Reportable [place] Bodies Not Reportable [place] Rings Not Reportable Luke Cells Not Reportable Bite Cells Not Reportable Crenated Cell Not Reportable Elliptocytes Not Reportable Acanthocytes (Spur) Not Reportable Rouleaux Not Reportable Hemoglobin C Crystals Not Reportable Schistocytes Not Reportable Malaria parasites Not Reportable Percent Retic Jl Bodies Not Reportable Hem Pathologist Commnt No PT INR APTT Fibrinogen Sodium Potassium Chloride Carbon Dioxide Anion Gap BUN Creatinine Estimated GFR BUN/Creatinine Ratio Glucose POC Glucose 251 H Calcium Lactate Dehydrogenase Urine Color Yellow Urine Turbidity Slightly cloudy Urine pH 5.0 Ur Specific [place] 1.020 Urine Protein 30 mg/dl Urine Glucose (UA) Negative Urine Ketones Trace Urine Blood Negative Urine Nitrite Negative Ur Reducing Substances Not Reportable Urine Bilirubin Negative Urine Ictotest Not Reportable Urine Urobilinogen < 2.0 Ur Leukocyte Esterase Negative Urine WBC (Auto) < 1.0 Urine RBC (Auto) < 1.0 Urine Mucus Few Blood Type Antibody Screen Antibody Identification Direct Antiglob Test SLIM, Poly Interpret Crossmatch 10/21/21 10/21/21 10/21/21 10:46 10:46 10:46 WBC RBC Hgb 7.3 L Hct 22.6 L MCV MCH MCHC RDW Plt Count 17 L* Add Manual Diff Total Counted Seg Neutrophils % Seg Neuts % (Manual) Band Neutrophils % Lymphocytes % (Manual) Reactive Lymphs % (Man) Monocytes % (Manual) Eosinophils % (Manual) Basophils % (Manual) Metamyelocytes % Myelocytes % Promyelocytes % Blast Cells % Nucleated RBC % Seg Neutrophils # Man Band Neutrophils # Lymphocytes # (Manual) Abs React Lymphs (Man) Monocytes # (Manual) Eosinophils # (Manual) Basophils # (Manual) Metamyelocytes # Myelocytes # Promyelocytes # Blast Cells # WBC Morphology Hypersegmented Neuts Hyposegmented Neuts Hypogranular Neuts Smudge Cells Toxic Granulation Toxic Vacuolation Dohle Bodies Pelger-Huet Anomaly Katia Rods Platelet Estimate Clumped Platelets Plt Clumps, EDTA Large Platelets Giant Platelets Platelet Satelliting Plt Morphology Comment RBC Morphology Dimorphic RBCs Polychromasia Hypochromasia Poikilocytosis Anisocytosis Microcytosis Macrocytosis Spherocytes Pappenheimer Bodies Sickle Cells Target Cells Tear Drop Cells Ovalocytes Helmet Cells [place] Bodies [place] Rings Luke Cells Bite Cells Crenated Cell Elliptocytes Acanthocytes (Spur) Rouleaux Hemoglobin C Crystals Schistocytes Malaria parasites Percent Retic Jl Bodies Hem Pathologist Commnt PT 19.1 H INR 1.42 H APTT 36.8 H Fibrinogen 133 L* Sodium 139 Potassium 4.8 Chloride 107.1 H Carbon Dioxide 19 L Anion Gap 18 BUN 40 H Creatinine 1.1 Estimated GFR > 60 BUN/Creatinine Ratio 36 Glucose 239 H POC Glucose Calcium 7.8 L Lactate Dehydrogenase Urine Color Urine Turbidity Urine pH Ur Specific [place] Urine Protein Urine Glucose (UA) Urine Ketones Urine Blood Urine Nitrite Ur Reducing Substances Urine Bilirubin Urine Ictotest Urine Urobilinogen Ur Leukocyte Esterase Urine WBC (Auto) Urine RBC (Auto) Urine Mucus Blood Type Antibody Screen Antibody Identification Direct Antiglob Test SLIM, Poly Interpret Crossmatch 10/21/21 10/21/21 10/21/21 10:46 10:46 10:46 WBC RBC Hgb Hct MCV MCH MCHC RDW Plt Count Add Manual Diff Total Counted Seg Neutrophils % Seg Neuts % (Manual) Band Neutrophils % Lymphocytes % (Manual) Reactive Lymphs % (Man) Monocytes % (Manual) Eosinophils % (Manual) Basophils % (Manual) Metamyelocytes % Myelocytes % Promyelocytes % Blast Cells % Nucleated RBC % Seg Neutrophils # Man Band Neutrophils # Lymphocytes # (Manual) Abs React Lymphs (Man) Monocytes # (Manual) Eosinophils # (Manual) Basophils # (Manual) Metamyelocytes # Myelocytes # Promyelocytes # Blast Cells # WBC Morphology Hypersegmented Neuts Hyposegmented Neuts Hypogranular Neuts Smudge Cells Toxic Granulation Toxic Vacuolation Dohle Bodies Pelger-Huet Anomaly Katia Rods Platelet Estimate Clumped Platelets Plt Clumps, EDTA Large Platelets Giant Platelets Platelet Satelliting Plt Morphology Comment RBC Morphology Dimorphic RBCs Polychromasia Hypochromasia Poikilocytosis Anisocytosis Microcytosis Macrocytosis Spherocytes Pappenheimer Bodies Sickle Cells Target Cells Tear Drop Cells Ovalocytes Helmet Cells [place] Bodies [place] Rings [place] Cells Bite Cells Crenated Cell Elliptocytes Acanthocytes (Spur) Rouleaux Hemoglobin C Crystals Schistocytes Malaria parasites Percent Retic 3.37 H Jl Bodies Hem Pathologist Commnt PT INR APTT Fibrinogen Sodium Potassium Chloride Carbon Dioxide Anion Gap BUN Creatinine Estimated GFR BUN/Creatinine Ratio Glucose POC Glucose Calcium Lactate Dehydrogenase 401 H Urine Color Urine Turbidity Urine pH Ur Specific [place] Urine Protein Urine Glucose (UA) Urine Ketones Urine Blood Urine Nitrite Ur Reducing Substances Urine Bilirubin Urine Ictotest Urine Urobilinogen Ur Leukocyte Esterase Urine WBC (Auto) Urine RBC (Auto) Urine Mucus Blood Type Antibody Screen Antibody Identification Direct Antiglob Test Negative SLIM, Poly Interpret Negative Crossmatch 10/21/21 11:16 WBC RBC Hgb Hct MCV MCH MCHC RDW Plt Count Add Manual Diff Total Counted Seg Neutrophils % Seg Neuts % (Manual) Band Neutrophils % Lymphocytes % (Manual) Reactive Lymphs % (Man) Monocytes % (Manual) Eosinophils % (Manual) Basophils % (Manual) Metamyelocytes % Myelocytes % Promyelocytes % Blast Cells % Nucleated RBC % Seg Neutrophils # Man Band Neutrophils # Lymphocytes # (Manual) Abs React Lymphs (Man) Monocytes # (Manual) Eosinophils # (Manual) Basophils # (Manual) Metamyelocytes # Myelocytes # Promyelocytes # Blast Cells # WBC Morphology Hypersegmented Neuts Hyposegmented Neuts Hypogranular Neuts Smudge Cells Toxic Granulation Toxic Vacuolation Dohle Bodies Pelger-Huet Anomaly Katia Rods Platelet Estimate Clumped Platelets Plt Clumps, EDTA Large Platelets Giant Platelets Platelet Satelliting Plt Morphology Comment RBC Morphology Dimorphic RBCs Polychromasia Hypochromasia Poikilocytosis Anisocytosis Microcytosis Macrocytosis Spherocytes Pappenheimer Bodies Sickle Cells Target Cells Tear Drop Cells Ovalocytes Helmet Cells [place] Bodies [place] Rings [place] Cells Bite Cells Crenated Cell Elliptocytes Acanthocytes (Spur) Rouleaux Hemoglobin C Crystals Schistocytes Malaria parasites Percent Retic Jl Bodies Hem Pathologist Commnt PT INR APTT Fibrinogen Sodium Potassium Chloride Carbon Dioxide Anion Gap BUN Creatinine Estimated GFR BUN/Creatinine Ratio Glucose POC Glucose 224 H Calcium Lactate Dehydrogenase Urine Color Urine Turbidity Urine pH Ur Specific [place] Urine Protein Urine Glucose (UA) Urine Ketones Urine Blood Urine Nitrite Ur Reducing Substances Urine Bilirubin Urine Ictotest Urine Urobilinogen Ur Leukocyte Esterase Urine WBC (Auto) Urine RBC (Auto) Urine Mucus Blood Type Antibody Screen Antibody Identification Direct Antiglob Test SLIM, Poly Interpret Crossmatch
[2021-10-21] MEDS: dexAMETHasone 20 MG in SODIUM CHLORIDE 0.9% 50 ML IV SCH ×2 (14:34→21:42)
[2021-10-21] MEDS ORDERED: INSULIN GLARGINE 100 UNITS/ML SUB-Q SCH (22:00)
[2021-10-21 23:41] LABS: Hematocrit 22.9 % (35.5-45.6); Hemoglobin 7.2 gm/dl (11.8-15.2)
[2021-10-22] MEDS ORDERED: SODIUM CHLORIDE 0.9% 500 ML 500 ML IV ONE ×3 (00:14→23:35)
[2021-10-22 06:43] LABS: INR 1.32 (0.87-1.13)
[2021-10-22 06:44] LABS: Partial Thromboplastin Time 35.7 Sec. (24.2-36.6)
[2021-10-22] MEDS: INSULIN LISPRO 100 UNIT/ML SUB-Q SCH ×4 (08:10→21:26)
[2021-10-22] MEDS: PANTOPRAZOLE 40 MG TAB PO SCH (08:10)
[2021-10-22 08:44] LABS: Alanine Aminotransferase 102 units/L (7-56); Albumin 3.5 g/dL (3.9-5); Blood Urea Nitrogen 38 mg/dL (9-20); Calcium 8.4 mg/dL (8.4-10.2); Hemolysis Index 5
[2021-10-22 08:51] LABS: BUN/Creatinine Ratio 54
--- NOTE | 2021-10-22 09:07 | Ultrasound Report ---
ULTRASOUND ABDOMEN, COMPLETE INDICATION / CLINICAL INFORMATION: Liver US. Evaluate cirrhosis. COMPARISON: None available. FINDINGS: PANCREAS: No significant abnormality. ABDOMINAL AORTA: No significant abnormality. IVC: No significant abnormality. LIVER: No significant abnormality. Normal hepatopedal blood flow in the main portal vein. No discrete hepatic abnormality is identified. GALLBLADDER: There is cholelithiasis. BILE DUCTS: No significant abnormality. Common bile duct measures 4 mm. KIDNEYS: Right: No acute abnormality. There is a small cyst. Left: No significant abnormality. SPLEEN: No significant abnormality. FREE FLUID: None. ADDITIONAL FINDINGS: None. IMPRESSION: 1. There is cholelithiasis. Signer Name: Tomi Abdullahi MD Signed: 10/22/2021 9:02 AM Workstation Name: [id number]
[2021-10-22] MEDS: dexAMETHasone 20 MG in SODIUM CHLORIDE 0.9% 50 ML IV SCH ×2 (10:49→22:58)
[2021-10-22] MEDS: SODIUM FERRIC GLUCON/SUCRO 125 MG in SODIUM CHLORIDE 0.9% 100 ML IV SCH (10:52)
--- NOTE | 2021-10-22 12:51 | Progress Note ---
<BRIDGET JORDAN - Last Filed: 10/22/21 23:23> Assessment and Plan Assessment and plan: This is a 66-year-old male with known past medical history of DM, OA, symptomatic snemia, ITP, colonic AV Malformation, Nicotine dependence, HCV, GERD, CHF, PSA, and medical noncompliance admitted for severe acute blood loss anemia probably secondary to GI bleed versus ITP Hospital Course to Date 10/21: Patient with active bleeding, large bloody stools and oozing from CVC site this am. Received 4units of PRBCs, worsen plt counts this am, H&H and vital site are stable. On IV steroids, continue to trend H&H and plts, check coags and fibrinogen. Hematology consulted. GI is also following, recommendations noted. Continue protonix gtt, patient switched to clear liquid diet. Hyperglycemia is most likely due to IV steroids, SSI initiated. 10/22: Remains stable on RA, denied any pain nor any discomfort at this time. No bloody stools overnight. s/p 6units of PRBCs, 2units of Plts, and 1cryo. H&H and vital signs stable this am, Protonix gtt transitioned to PO per GI. Hematology recommendations noted. Fibrinogen less than 150 this am, 1unit of Cryo ordered. Will continue to trend H&H, plts, and coags. Advance diet as tolerated. SSI and Lantus adjuted for hyperglycemia. Patient is stable for transfer to telemetry. Assessment and Plan #Acute Blood Loss Anemia 2/2 #GI bleed- H/o AVM #Chronic ITP (Idiopathic Thrombocytopenic Purpura) - Presented with hgb level less than 2, stool occult is positive - With worsen thrombocytopenia this am - s/p 6units of PRBCs, 2units of Plts, and 1cryo - H&H stable this am, no bloody stools from overnight. No s/s of any active bleeding - Protonix gtt transitioned to PO per GI. On IV steroids - Advanced diet as tolerated - Fibrinogen less than 150, 1units of Cryo ordered - Continue to trend H&H, plts, and coags - Hematology consulted, appreciated recommendations - Transfer for Hgb less than 7 - GI signed off #Syncope-resolved - Probably due to low BP secondary to above - s/p multiple blood products - BP stable, sx resolved - Continue to trend H&H - Continue blood pressure monitor per protocol - Maintain MAP above 65 #Type 2 Diabetes Mellitus with Hyperglycemia - most likely due to IV steroids - BG check ACHS and SSI adjusted - Lantus qhs - While critically ill target blood glucose of 140-180 #Hepatitis C - Chronic, supportive care, outpatient GI follow-up. #GI/ DVT Prophylaxis - PPI- pepcid - SCDs bilateral lower extremities while in bed #Advance Care Planning - Disease education data, care plan, diagnoses, and prognosis were discussed with patient at the bedside. Patient is a FULL code. Patient acknowledged understanding and agreed with current care plan. The high probability of a clinically significant, sudden or life threatening deterioration of the [multiple] system(s) required my full and direct attention, intervention and personal management. The aggregate critical care time was [60] minutes. This time is in addition to time spent performing reported procedures but includes the following: [x] Data Review and interpretation [x] Patient assessment and monitoring of vital signs [x] Documentation [x] Medication orders and management Disposition Plan: Transfer to Telemetry Total Time Spent with Patient (Minutes): 60 History Interval history: Patient seen and examined at the bedside. Remains stable on RA, denied any pain nor any discomfort at this time. No bloody stools overnight. s/p 6units of PRBCs, 2units Plts, 1cryo.VSS Hospitalist Physical - Constitutional Vitals: Temp Pulse Resp BP Pulse Ox 98.1 F 84 17 140/69 95 10/22/21 12:01 10/22/21 07:20 10/22/21 07:20 10/22/21 07:20 10/22/21 04:00 General appearance: Present: no acute distress, cachectic - EENT Eyes: Present: PERRL, EOM intact ENT: hearing intact - Neck Neck: Present: normal ROM - Respiratory Respiratory effort: normal Respiratory: bilateral: CTA - Cardiovascular Rhythm: regular Heart Sounds: Present: S1 & S2 - Extremities Extremities: no ischemia, pulses intact, pulses symmetrical Peripheral Pulses: within normal limits - Abdominal General gastrointestinal: soft, non-distended, normal bowel sounds - Integumentary Integumentary: Present: clear, warm, dry - Psychiatric Psychiatric: appropriate mood/affect, cooperative - Neurologic Neurologic: CNII-XII intact, moves all extremities - Allied Health Allied health notes reviewed: nursing, case management Results - Labs CBC & Chem 7: 10/22/21 22:47 10/22/21 06:10 Labs: Laboratory Last Values WBC 7.0 K/mm3 (4.5-11.0) 10/21/21 06:20 RBC 2.97 M/mm3 (3.65-5.03) L 10/21/21 06:20 Hgb 7.2 gm/dl (11.8-15.2) L 10/21/21 23:10 Hct 22.9 % (35.5-45.6) L 10/21/21 23:10 MCV 80 fl (84-94) L 10/21/21 06:20 MCH 26 pg (28-32) L 10/21/21 06:20 MCHC 32 % (32-34) 10/21/21 06:20 RDW 25.6 % (13.2-15.2) H 10/21/21 06:20 Plt Count 20 K/mm3 (140-440) L 10/21/21 23:10 Add Manual Diff Complete 10/21/21 06:20 Total Counted 100 10/21/21 06:20 Seg Neutrophils % Meat Cutting Teacher 10/21/21 06:20 Seg Neuts % (Manual) 95.0 % (40.0-70.0) H 10/21/21 06:20 Band Neutrophils % 0 % 10/21/21 06:20 Lymphocytes % (Manual) 2.0 % (13.4-35.0) L 10/21/21 06:20 Reactive Lymphs % (Man) 0 % 10/21/21 06:20 Monocytes % (Manual) 3.0 % (0.0-7.3) 10/21/21 06:20 Eosinophils % (Manual) 0 % (0.0-4.3) 10/21/21 06:20 Basophils % (Manual) 0 % (0.0-1.8) 10/21/21 06:20 Metamyelocytes % 0 % 10/21/21 06:20 Myelocytes % 0 % 10/21/21 06:20 Promyelocytes % 0 % 10/21/21 06:20 Blast Cells % 0 % 10/21/21 06:20 Nucleated RBC % Not Reportable 10/21/21 06:20 Seg Neutrophils # Man 6.7 K/mm3 (1.8-7.7) 10/21/21 06:20 Band Neutrophils # 0.0 K/mm3 10/21/21 06:20 Lymphocytes # (Manual) 0.1 K/mm3 (1.2-5.4) L 10/21/21 06:20 Abs React Lymphs (Man) 0.0 K/mm3 10/21/21 06:20 Monocytes # (Manual) 0.2 K/mm3 (0.0-0.8) 10/21/21 06:20 Eosinophils # (Manual) 0.0 K/mm3 (0.0-0.4) 10/21/21 06:20 Basophils # (Manual) 0.0 K/mm3 (0.0-0.1) 10/21/21 06:20 Metamyelocytes # 0.0 K/mm3 10/21/21 06:20 Myelocytes # 0.0 K/mm3 10/21/21 06:20 Promyelocytes # 0.0 K/mm3 10/21/21 06:20 Blast Cells # 0.0 K/mm3 10/21/21 06:20 WBC Morphology Not Reportable 10/21/21 06:20 Hypersegmented Neuts Not Reportable 10/21/21 06:20 Hyposegmented Neuts Not Reportable 10/21/21 06:20 Hypogranular Neuts Not Reportable 10/21/21 06:20 Smudge Cells Not Reportable 10/21/21 06:20 Toxic Granulation Not Reportable 10/21/21 06:20 Toxic Vacuolation Not Reportable 10/21/21 06:20 Dohle Bodies Not Reportable 10/21/21 06:20 Pelger-Huet Anomaly Not Reportable 10/21/21 06:20 Katia Rods Not Reportable 10/21/21 06:20 Platelet Estimate Consistent w auto 10/21/21 06:20 Clumped Platelets Not Reportable 10/21/21 06:20 Plt Clumps, EDTA Not Reportable 10/21/21 06:20 Large Platelets Not Reportable 10/21/21 06:20 Giant Platelets Not Reportable 10/21/21 06:20 Platelet Satelliting Not Reportable 10/21/21 06:20 Plt Morphology Comment Not Reportable 10/21/21 06:20 RBC Morphology Not Reportable 10/21/21 06:20 Dimorphic RBCs Not Reportable 10/21/21 06:20 Polychromasia Few 10/21/21 06:20 Hypochromasia 1+ 10/21/21 06:20 Poikilocytosis Not Reportable 10/21/21 06:20 Anisocytosis 1+ 10/21/21 06:20 Microcytosis Not Reportable 10/21/21 06:20 Macrocytosis Not Reportable 10/21/21 06:20 Spherocytes Not Reportable 10/21/21 06:20 Pappenheimer Bodies Not Reportable 10/21/21 06:20 Sickle Cells Not Reportable 10/21/21 06:20 Target Cells Few 10/21/21 06:20 Tear Drop Cells Not Reportable 10/21/21 06:20 Ovalocytes Not Reportable 10/21/21 06:20 Helmet Cells Not Reportable 10/21/21 06:20 Suarez-Lawtey Bodies Not Reportable 10/21/21 06:20 [place] Rings Not Reportable 10/21/21 06:20 [place] Cells Not Reportable 10/21/21 06:20 Bite Cells Not Reportable 10/21/21 06:20 Crenated Cell Not Reportable 10/21/21 06:20 Elliptocytes Not Reportable 10/21/21 06:20 Acanthocytes (Spur) Not Reportable 10/21/21 06:20 Rouleaux Not Reportable 10/21/21 06:20 Hemoglobin C Crystals Not Reportable 10/21/21 06:20 Schistocytes Not Reportable 10/21/21 06:20 Malaria parasites Not Reportable 10/21/21 06:20 Percent Retic 3.37 % (0.78-2.58) H 10/21/21 10:46 Jl Bodies Not Reportable 10/21/21 06:20 Hem Pathologist Commnt No 10/21/21 06:20 PT 17.9 Sec. (12.2-14.9) H 10/22/21 06:10 INR 1.32 (0.87-1.13) H 10/22/21 06:10 APTT 35.7 Sec. (24.2-36.6) 10/22/21 06:10 Fibrinogen 141 mg/dl (211-480) L* 10/22/21 06:10 Sodium 139 mmol/L (137-145) 10/22/21 06:10 Potassium 4.8 mmol/L (3.6-5.0) 10/22/21 06:10 Chloride 107.3 mmol/L (98-107) H 10/22/21 06:10 Carbon Dioxide 24 mmol/L (22-30) 10/22/21 06:10 Anion Gap 13 mmol/L 10/22/21 06:10 BUN 38 mg/dL (9-20) H 10/22/21 06:10 Creatinine 0.7 mg/dL (0.8-1.3) L 10/22/21 06:10 Estimated GFR > 60 ml/min 10/22/21 06:10 BUN/Creatinine Ratio 54 % 10/22/21 06:10 Glucose 230 mg/dL (75-100) H 10/22/21 06:10 POC Glucose 212 mg/dL (70-105) H 10/22/21 11:35 Calcium 8.4 mg/dL (8.4-10.2) 10/22/21 06:10 Total Bilirubin 1.30 mg/dL (0.1-1.2) H 10/22/21 06:10 AST 134 units/L (5-40) H 10/22/21 06:10 ALT 102 units/L (7-56) H 10/22/21 06:10 Alkaline Phosphatase 60 units/L (35-129) 10/22/21 06:10 Lactate Dehydrogenase 401 units/L (91-180) H 10/21/21 10:46 Total Protein 5.3 g/dL (6.3-8.2) L 10/22/21 06:10 Albumin 3.5 g/dL (3.9-5) L 10/22/21 06:10 Albumin/Globulin Ratio 1.9 % 10/22/21 06:10 Urine Color Yellow (Yellow) 10/20/21 22:52 Urine Turbidity Slightly cloudy (Clear) 10/20/21 22:52 Urine pH 5.0 (5.0-7.0) 10/20/21 22:52 Ur Specific [place] 1.020 (1.003-1.030) 10/20/21 22:52 Urine Protein 30 mg/dl mg/dL (Negative) 10/20/21 22:52 Urine Glucose (UA) Negative mg/dL (Negative) 10/20/21 22:52 Urine Ketones Trace mg/dL (Negative) 10/20/21 22:52 Urine Blood Negative (Negative) 10/20/21 22:52 Urine Nitrite Negative (Negative) 10/20/21 22:52 Ur Reducing Substances Not Reportable 10/20/21 22:52 Urine Bilirubin Negative (Negative) 10/20/21 22:52 Urine Ictotest Not Reportable 10/20/21 22:52 Urine Urobilinogen < 2.0 mg/dL (<2.0) 10/20/21 22:52 Ur Leukocyte Esterase Negative (Negative) 10/20/21 22:52 Urine WBC (Auto) < 1.0 /HPF (0.0-6.0) 10/20/21 22:52 Urine RBC (Auto) < 1.0 /HPF (0.0-6.0) 10/20/21 22:52 Urine Mucus Few /HPF 10/20/21 22:52 Blood Type A POSITIVE 10/20/21 10:22 Antibody Screen Positive 10/20/21 10:22 Antibody Identification Anti-E 10/20/21 10:22 Direct Antiglob Test Negative 10/22/21 06:10 SLIM, Poly Interpret Negative 10/22/21 06:10 Crossmatch See Detail 10/20/21 10:22 Parker/IV: Voiding Method Condom Catheter Active Medications - Current Medications Current Medications: Generic Name Dose Route Start Last Admin Trade Name Freq PRN Reason Stop Dose Admin Acetaminophen 650 mg 10/20/21 15:00 Acetaminophen 325 Mg Tab PO Q6H PRN Pain MILD(1-3)/Fever >100.5/DURÁN Albuterol 2.5 mg 10/20/21 15:00 Albuterol 2.5 Mg/3 Ml Nebu IH Q3HRT PRN Shortness Of Breath Dextrose 50 ml 10/21/21 08:00 Dextrose 50% In Water (25gm) 50 Ml Syringe IV Q30MIN PRN Hypoglycemia Protocol Hydromorphone HCl 0.5 mg 10/20/21 15:00 Hydromorphone 0.5 Mg/0.5 Ml Inj IV Q23H PRN Pain , Severe (7-10) Ferric Sodium Gluconate 110 mls @ 100 mls/hr 10/21/21 11:00 10/22/21 11:58 Complex 125 mg/ Sodium IV 08/22/22 11:05 Infused Chloride DAILY LUCIAN Infusion Dexamethasone 20 mg/ Sodium 55 mls @ 100 mls/hr 10/21/21 13:00 10/22/21 11:22 Chloride IV 10/24/21 22:32 Infused Q12HR LUCIAN Infusion Insulin Glargine 10 units 10/22/21 22:00 Insulin Glargine 100 Units/Ml SUB-Q QHS LUCIAN Insulin Human Lispro 0 unit 10/21/21 11:30 10/22/21 08:10 Insulin Lispro 100 Unit/Ml SUB-Q 4 unit ACHS LUCIAN Administration Protocol Oxycodone/Acetaminophen 1 tab 10/20/21 15:00 Oxycodone /Acetaminophen 5-325mg Tab PO Q16H PRN Pain, Moderate (4-6) Pantoprazole Sodium 40 mg 10/22/21 07:30 10/22/21 08:10 Pantoprazole 40 Mg Tab PO 40 mg QDAC LUCIAN Administration Sodium Chloride 10 ml 10/20/21 15:00 10/22/21 10:50 Sodium Chloride 0.9% 10 Ml Flush Syringe IV 10 ml BID LUCIAN Administration Sodium Chloride 10 ml 10/20/21 15:00 Sodium Chloride 0.9% 10 Ml Flush Syringe IV PRN PRN LINE FLUSH Nutrition/Malnutrition Assess - Dietary Evaluation Nutrition/Malnutrition Findings: Nutrition Notes Start: 10/21/21 15 :21 Freq: Status: Active Protocol: Document 10/21/21 15:21 ROSEANNE (Rec: 10/21/21 15:37 ROSEANNE [id number]) Nutrition Notes Need for Assessment generated from: MD Order,Education Initial or Follow up Brief Note Current Diagnosis Diabetes Other Pertinent Diagnosis Anemia, GI Bleed, Syncope, GERD, CHF, OA. Current Diet Regular Diet (from D 10/21). Height 5 ft 6 in Weight 56.699 kg [place] Body Weight (kg) 64.54 BMI 20.1 Intake Prior to Admission Good Weight change and time frame Pt denies having loss body weight CCU NURSE. Weight Status Appropriate Subjective/Other Information RD consult for nutrition education assessment. No reports available on Pt's PO intake of meals at the time , will assess at F/U. Pt is on Room Air, O2 saturation @ 99%, according to Physical Assessment History notes. Pt presents diarrhea with hemoccult positive, according to Physical Assessment History notes. Pt still in critical condition , not a candidate for Nutrition Education at the time, will assess feasibility on F/U. Percent of energy/protein needs met: Prescribed Regular Diet provides for energy/protein needs (2,289 Kcal/89 g) during LOS. Nutrition Intervention Follow-Up By: 10/28/21 Additional Comments Nutrition education will be provided at F/U, if feasible. Continue monitoring food tolerance, %PO intake of meals , and BM. <GOMEZ ARAYA - Last Filed: 10/23/21 07:38> Assessment and Plan Assessment and plan: I saw and evaluated the patient. I agree with the findings and the plan of care as documented in the Nurse Practitioner's~note, with the following corrections and additions. Hospitalist Physical - Constitutional Vitals: Temp Pulse Resp BP Pulse Ox 98 F 74 18 146/74 100 10/23/21 03:31 10/23/21 03:31 10/23/21 03:31 10/23/21 03:31 10/23/21 03:31 Results - Labs CBC & Chem 7: 10/22/21 22:47 10/22/21 06:10 Labs: Laboratory Last Values WBC 8.0 K/mm3 (4.5-11.0) 10/22/21 14:30 RBC 3.17 M/mm3 (3.65-5.03) L 10/22/21 14:30 Hgb 7.7 gm/dl (11.8-15.2) L 10/22/21 22:47 Hct 23.6 % (35.5-45.6) L 10/22/21 22:47 MCV 82 fl (84-94) L 10/22/21 14:30 MCH 26 pg (28-32) L 10/22/21 14:30 MCHC 32 % (32-34) 10/22/21 14:30 RDW 22.6 % (13.2-15.2) H 10/22/21 14:30 Plt Count 18 K/mm3 (140-440) L* 10/22/21 22:47 Add Manual Diff Complete 10/21/21 06:20 Total Counted 100 10/21/21 06:20 Seg Neutrophils % Meat Cutting Teacher 10/21/21 06:20 Seg Neuts % (Manual) 95.0 % (40.0-70.0) H 10/21/21 06:20 Band Neutrophils % 0 % 10/21/21 06:20 Lymphocytes % (Manual) 2.0 % (13.4-35.0) L 10/21/21 06:20 Reactive Lymphs % (Man) 0 % 10/21/21 06:20 Monocytes % (Manual) 3.0 % (0.0-7.3) 10/21/21 06:20 Eosinophils % (Manual) 0 % (0.0-4.3) 10/21/21 06:20 Basophils % (Manual) 0 % (0.0-1.8) 10/21/21 06:20 Metamyelocytes % 0 % 10/21/21 06:20 Myelocytes % 0 % 10/21/21 06:20 Promyelocytes % 0 % 10/21/21 06:20 Blast Cells % 0 % 10/21/21 06:20 Nucleated RBC % Not Reportable 10/21/21 06:20 Seg Neutrophils # Man 6.7 K/mm3 (1.8-7.7) 10/21/21 06:20 Band Neutrophils # 0.0 K/mm3 10/21/21 06:20 Lymphocytes # (Manual) 0.1 K/mm3 (1.2-5.4) L 10/21/21 06:20 Abs React Lymphs (Man) 0.0 K/mm3 10/21/21 06:20 Monocytes # (Manual) 0.2 K/mm3 (0.0-0.8) 10/21/21 06:20 Eosinophils # (Manual) 0.0 K/mm3 (0.0-0.4) 10/21/21 06:20 Basophils # (Manual) 0.0 K/mm3 (0.0-0.1) 10/21/21 06:20 Metamyelocytes # 0.0 K/mm3 10/21/21 06:20 Myelocytes # 0.0 K/mm3 10/21/21 06:20 Promyelocytes # 0.0 K/mm3 10/21/21 06:20 Blast Cells # 0.0 K/mm3 10/21/21 06:20 WBC Morphology Not Reportable 10/21/21 06:20 Hypersegmented Neuts Not Reportable 10/21/21 06:20 Hyposegmented Neuts Not Reportable 10/21/21 06:20 Hypogranular Neuts Not Reportable 10/21/21 06:20 Smudge Cells Not Reportable 10/21/21 06:20 Toxic Granulation Not Reportable 10/21/21 06:20 Toxic Vacuolation Not Reportable 10/21/21 06:20 Dohle Bodies Not Reportable 10/21/21 06:20 Pelger-Huet Anomaly Not Reportable 10/21/21 06:20 Katia Rods Not Reportable 10/21/21 06:20 Platelet Estimate Consistent w auto 10/21/21 06:20 Clumped Platelets Not Reportable 10/21/21 06:20 Plt Clumps, EDTA Not Reportable 10/21/21 06:20 Large Platelets Not Reportable 10/21/21 06:20 Giant Platelets Not Reportable 10/21/21 06:20 Platelet Satelliting Not Reportable 10/21/21 06:20 Plt Morphology Comment Not Reportable 10/21/21 06:20 RBC Morphology Not Reportable 10/21/21 06:20 Dimorphic RBCs Not Reportable 10/21/21 06:20 Polychromasia Few 10/21/21 06:20 Hypochromasia 1+ 10/21/21 06:20 Poikilocytosis Not Reportable 10/21/21 06:20 Anisocytosis 1+ 10/21/21 06:20 Microcytosis Not Reportable 10/21/21 06:20 Macrocytosis Not Reportable 10/21/21 06:20 Spherocytes Not Reportable 10/21/21 06:20 Pappenheimer Bodies Not Reportable 10/21/21 06:20 Sickle Cells Not Reportable 10/21/21 06:20 Target Cells Few 10/21/21 06:20 Tear Drop Cells Not Reportable 10/21/21 06:20 Ovalocytes Not Reportable 10/21/21 06:20 Helmet Cells Not Reportable 10/21/21 06:20 Suarez-Lawtey Bodies Not Reportable 10/21/21 06:20 [place] Rings Not Reportable 10/21/21 06:20 [place] Cells Not Reportable 10/21/21 06:20 Bite Cells Not Reportable 10/21/21 06:20 Crenated Cell Not Reportable 10/21/21 06:20 Elliptocytes Not Reportable 10/21/21 06:20 Acanthocytes (Spur) Not Reportable 10/21/21 06:20 Rouleaux Not Reportable 10/21/21 06:20 Hemoglobin C Crystals Not Reportable 10/21/21 06:20 Schistocytes Not Reportable 10/21/21 06:20 Malaria parasites Not Reportable 10/21/21 06:20 Percent Retic 3.37 % (0.78-2.58) H 10/21/21 10:46 Jl Bodies Not Reportable 10/21/21 06:20 Hem Pathologist Commnt No 10/21/21 06:20 PT 17.9 Sec. (12.2-14.9) H 10/22/21 06:10 INR 1.32 (0.87-1.13) H 10/22/21 06:10 APTT 35.7 Sec. (24.2-36.6) 10/22/21 06:10 Fibrinogen 141 mg/dl (211-480) L* 10/22/21 06:10 Sodium 139 mmol/L (137-145) 10/22/21 06:10 Potassium 4.8 mmol/L (3.6-5.0) 10/22/21 06:10 Chloride 107.3 mmol/L (98-107) H 10/22/21 06:10 Carbon Dioxide 24 mmol/L (22-30) 10/22/21 06:10 Anion Gap 13 mmol/L 10/22/21 06:10 BUN 38 mg/dL (9-20) H 10/22/21 06:10 Creatinine 0.7 mg/dL (0.8-1.3) L 10/22/21 06:10 Estimated GFR > 60 ml/min 10/22/21 06:10 BUN/Creatinine Ratio 54 % 10/22/21 06:10 Glucose 230 mg/dL (75-100) H 10/22/21 06:10 POC Glucose 257 mg/dL (70-105) H 10/22/21 21:54 Calcium 8.4 mg/dL (8.4-10.2) 10/22/21 06:10 Total Bilirubin 1.30 mg/dL (0.1-1.2) H 10/22/21 06:10 AST 134 units/L (5-40) H 10/22/21 06:10 ALT 102 units/L (7-56) H 10/22/21 06:10 Alkaline Phosphatase 60 units/L (35-129) 10/22/21 06:10 Lactate Dehydrogenase 401 units/L (91-180) H 10/21/21 10:46 Total Protein 5.3 g/dL (6.3-8.2) L 10/22/21 06:10 Albumin 3.5 g/dL (3.9-5) L 10/22/21 06:10 Albumin/Globulin Ratio 1.9 % 10/22/21 06:10 Urine Color Yellow (Yellow) 10/20/21 22:52 Urine Turbidity Slightly cloudy (Clear) 10/20/21 22:52 Urine pH 5.0 (5.0-7.0) 10/20/21 22:52 Ur Specific [place] 1.020 (1.003-1.030) 10/20/21 22:52 Urine Protein 30 mg/dl mg/dL (Negative) 10/20/21 22:52 Urine Glucose (UA) Negative mg/dL (Negative) 10/20/21 22:52 Urine Ketones Trace mg/dL (Negative) 10/20/21 22:52 Urine Blood Negative (Negative) 10/20/21 22:52 Urine Nitrite Negative (Negative) 10/20/21 22:52 Ur Reducing Substances Not Reportable 10/20/21 22:52 Urine Bilirubin Negative (Negative) 10/20/21 22:52 Urine Ictotest Not Reportable 10/20/21 22:52 Urine Urobilinogen < 2.0 mg/dL (<2.0) 10/20/21 22:52 Ur Leukocyte Esterase Negative (Negative) 10/20/21 22:52 Urine WBC (Auto) < 1.0 /HPF (0.0-6.0) 10/20/21 22:52 Urine RBC (Auto) < 1.0 /HPF (0.0-6.0) 10/20/21 22:52 Urine Mucus Few /HPF 10/20/21 22:52 Blood Type A POSITIVE 10/20/21 10:22 Antibody Screen Positive 10/20/21 10:22 Antibody Identification Anti-E 10/20/21 10:22 Direct Antiglob Test Negative 10/22/21 06:10 SLIM, Poly Interpret Negative 10/22/21 06:10 Crossmatch See Detail 10/20/21 10:22 Parker/IV: Voiding Method Urinal Active Medications - Current Medications Current Medications: Generic Name Dose Route Start Last Admin Trade Name Freq PRN Reason Stop Dose Admin Acetaminophen 650 mg 10/20/21 15:00 Acetaminophen 325 Mg Tab PO Q6H PRN Pain MILD(1-3)/Fever >100.5/DURÁN Albuterol 2.5 mg 10/20/21 15:00 Albuterol 2.5 Mg/3 Ml Nebu IH Q3HRT PRN Shortness Of Breath Dextrose 50 ml 10/21/21 08:00 Dextrose 50% In Water (25gm) 50 Ml Syringe IV Q30MIN PRN Hypoglycemia Protocol Hydromorphone HCl 0.5 mg 10/20/21 15:00 Hydromorphone 0.5 Mg/0.5 Ml Inj IV Q23H PRN Pain , Severe (7-10) Ferric Sodium Gluconate 110 mls @ 100 mls/hr 10/21/21 11:00 10/22/21 11:58 Complex 125 mg/ Sodium IV 10/28/21 11:05 Infused Chloride DAILY LUCIAN Infusion Dexamethasone 20 mg/ Sodium 55 mls @ 100 mls/hr 10/21/21 13:00 10/22/21 22:58 Chloride IV 10/24/21 22:32 100 mls/hr Q12HR LUCIAN Administration Insulin Glargine 10 units 10/22/21 22:00 10/22/21 21:25 Insulin Glargine 100 Units/Ml SUB-Q 10 units QHS LUCIAN Administration Insulin Human Lispro 0 unit 10/21/21 11:30 10/22/21 21:26 Insulin Lispro 100 Unit/Ml SUB-Q 6 unit ACHS LUCIAN Administration Protocol Oxycodone/Acetaminophen 1 tab 10/20/21 15:00 Oxycodone /Acetaminophen 5-325mg Tab PO Q16H PRN Pain, Moderate (4-6) Pantoprazole Sodium 40 mg 10/22/21 07:30 10/22/21 08:10 Pantoprazole 40 Mg Tab PO 40 mg QDAC LUCIAN Administration Sodium Chloride 10 ml 10/20/21 15:00 10/22/21 23:01 Sodium Chloride 0.9% 10 Ml Flush Syringe IV 10 ml BID LUCIAN Administration Sodium Chloride 10 ml 10/20/21 15:00 Sodium Chloride 0.9% 10 Ml Flush Syringe IV PRN PRN LINE FLUSH Nutrition/Malnutrition Assess - Dietary Evaluation Nutrition/Malnutrition Findings: Nutrition Notes Start: 10/21/21 15:21 Freq: Status: Active Protocol: Document 10/21/21 15:21 ROSEANNE (Rec: 10/21/21 15:37 ROSEANNE [id number]) Nutrition Notes Need for Assessment generated from: MD Order,Education Initial or Follow up Brief Note Current Diagnosis Diabetes Other Pertinent Diagnosis Anemia, GI Bleed, Syncope, GERD, CHF, OA. Current Diet Regular Diet (from D 10/21). Height 5 ft 6 in Weight 56.699 kg [place] Body Weight (kg) 64.54 BMI 20.1 Intake Prior to Admission Good Weight change and time frame Pt denies having loss body weight CCU NURSE. Weight Status Appropriate Subjective/Other Information RD consult for nutrition education assessment. No reports available on Pt's PO intake of meals at the time , will assess at F/U. Pt is on Room Air, O2 saturation @ 99%, according to Physical Assessment History notes. Pt presents diarrhea with hemoccult positive, according to Physical Assessment History notes. Pt still in critical condition , not a candidate for Nutrition Education at the time, will assess feasibility on F/U. Percent of energy/protein needs met: Prescribed Regular Diet provides for energy/protein needs (2,289 Kcal/89 g) during LOS. Nutrition Intervention Follow-Up By: 10/28/21 Additional Comments Nutrition education will be provided at F/U, if feasible. Continue monitoring food tolerance, %PO intake of meals , and BM.
[2021-10-22 14:48] LABS: Hematocrit 26.1 % (35.5-45.6); Hemoglobin 8.3 gm/dl (11.8-15.2); Mean Corpuscular HGB Conc 32 % (32-34); Mean Corpuscular Volume 82 fl (84-94); Red Blood Count 3.17 M/mm3 (3.65-5.03)
[2021-10-22 14:50] LABS: Red Cell Distribution Width 22.6 % (13.2-15.2)
[2021-10-22 14:51] LABS: Platelet Count 17 K/mm3 (140-440)
--- NOTE | 2021-10-22 16:11 | Hem/Onc Progress Note ---
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 BMbx negative; cytogenetics normal Now back in [facility] for severe anemia Hgb 1.9, with active GI bleed S/p RBC transfusions Found to have low plt counts again DATA REVIEWED BELOW IMPRESSION: ITP with chronic bleeding related to cirrhosis Will not tolerate plt count <20 PLAN: Continue decadron Plan for IVIG tomorrow 10/23 Will consider Nplate Standing order: --Transfuse 1 unit pRBC whenever hct <23 --Transfuse 1 dose of plts whenever plt <20 Will need outpatient hematology follow up for Doptelet or Promacta Laboratory Last Values WBC 8.0 K/mm3 (4.5-11.0) 10/22/21 14:30 Hgb 8.3 gm/dl (11.8-15.2) L 10/22/21 14:30 Hct 26.1 % (35.5-45.6) L 10/22/21 14:30 MCV 82 fl (84-94) L 10/22/21 14:30 Plt Count 17 K/mm3 (140-440) L* 10/22/21 14:30 Seg Neuts % (Manual) 95.0 % (40.0-70.0) H 10/21/21 06:20 Lymphocytes % (Manual) 2.0 % (13.4-35.0) L 10/21/21 06:20 Lymphocytes # (Manual) 0.1 K/mm3 (1.2-5.4) L 10/21/21 06:20 Percent Retic 3.37 % (0.78-2.58) H 10/21/21 10:46 PT 17.9 Sec. (12.2-14.9) H 10/22/21 06:10 INR 1.32 (0.87-1.13) H 10/22/21 06:10 APTT 35.7 Sec. (24.2-36.6) 10/22/21 06:10 Fibrinogen 141 mg/dl (211-480) L* 10/22/21 06:10 Creatinine 0.7 mg/dL (0.8-1.3) L 10/22/21 06:10 Total Bilirubin 1.30 mg/dL (0.1-1.2) H 10/22/21 06:10 AST 134 units/L (5-40) H 10/22/21 06:10 ALT 102 units/L (7-56) H 10/22/21 06:10 Alkaline Phosphatase 60 units/L (35-129) 10/22/21 06:10 Lactate Dehydrogenase 401 units/L (91-180) H 10/21/21 10:46 Total Protein 5.3 g/dL (6.3-8.2) L 10/22/21 06:10 Albumin 3.5 g/dL (3.9-5) L 10/22/21 06:10 Blood Type A POSITIVE 10/20/21 10:22 Antibody Screen Positive 10/20/21 10:22 Antibody Identification Anti-E 10/20/21 10:22 Direct Antiglob Test Negative 10/22/21 06:10 SLIM, Poly Interpret Negative 10/22/21 06:10 Crossmatch See Detail 10/20/21 10:22 Objective - Constitutional Vitals: Last Vital Signs Temp 97.9 F 10/22/21 14:55 Pulse 83 10/22/21 14:55 Resp 14 10/22/21 14:55 BP 154/89 10/22/21 14:55 Pulse Ox 95 10/22/21 04:00 - Labs Lab Results: Laboratory Results - last 24 hr 10/20/21 10/21/21 10/21/21 10:22 16:16 22:26 WBC RBC Hgb Hct MCV MCH MCHC RDW Plt Count PT INR APTT Fibrinogen Sodium Potassium Chloride Carbon Dioxide Anion Gap BUN Creatinine Estimated GFR BUN/Creatinine Ratio Glucose POC Glucose 155 H 306 H Calcium Total Bilirubin AST ALT Alkaline Phosphatase Total Protein Albumin Albumin/Globulin Ratio Blood Type A POSITIVE Antibody Screen Positive Antibody Identification Anti-E Direct Antiglob Test SLIM, Poly Interpret Crossmatch See Detail 10/21/21 10/22/21 10/22/21 23:10 06:10 06:10 WBC RBC Hgb 7.2 L Hct 22.9 L MCV MCH MCHC RDW Plt Count 20 L PT INR APTT Fibrinogen Sodium 139 Potassium 4.8 Chloride 107.3 H Carbon Dioxide 24 Anion Gap 13 BUN 38 H Creatinine 0.7 L Estimated GFR > 60 BUN/Creatinine Ratio 54 Glucose 230 H POC Glucose Calcium 8.4 Total Bilirubin 1.30 H AST 134 H ALT 102 H Alkaline Phosphatase 60 Total Protein 5.3 L Albumin 3.5 L Albumin/Globulin Ratio 1.9 Blood Type Antibody Screen Antibody Identification Direct Antiglob Test Negative SLIM, Poly Interpret Negative Crossmatch 10/22/21 10/22/21 10/22/21 06:10 07:32 11:35 WBC RBC Hgb Hct MCV MCH MCHC RDW Plt Count PT 17.9 H INR 1.32 H APTT 35.7 Fibrinogen 141 L* Sodium Potassium Chloride Carbon Dioxide Anion Gap BUN Creatinine Estimated GFR BUN/Creatinine Ratio Glucose POC Glucose 224 H 212 H Calcium Total Bilirubin AST ALT Alkaline Phosphatase Total Protein Albumin Albumin/Globulin Ratio Blood Type Antibody Screen Antibody Identification Direct Antiglob Test SLIM, Poly Interpret Crossmatch 10/22/21 14:30 WBC 8.0 RBC 3.17 L Hgb 8.3 L Hct 26.1 L MCV 82 L MCH 26 L MCHC 32 RDW 22.6 H Plt Count 17 L* PT INR APTT Fibrinogen Sodium Potassium Chloride Carbon Dioxide Anion Gap BUN Creatinine Estimated GFR BUN/Creatinine Ratio Glucose POC Glucose Calcium Total Bilirubin AST ALT Alkaline Phosphatase Total Protein Albumin Albumin/Globulin Ratio Blood Type Antibody Screen Antibody Identification Direct Antiglob Test SLIM, Poly Interpret Crossmatch Medications & Allergies - Medications Allergies/Adverse Reactions: Allergies No Known Allergies Allergy (Verified 10/20/21 08:49) Home Medications: Home Medications Medication Instructions Recorded Confirmed Last Taken Type Ferrous Gluconate [Ferrous 324 mg PO QDAY #30 04/12/21 04/15/21 Unknown Rx Gluconate 324 MG] Pantoprazole [Protonix TAB] 40 mg PO BID #60 tablet 04/12/21 04/15/21 Unknown Rx AtorvaSTATin [Lipitor] 40 mg PO QHS #30 tablet 04/16/21 Unknown Rx metFORMIN [Glucophage] 500 mg PO QDAY #30 tab 04/16/21 Unknown Rx Active Medications: Generic Name Dose Route Start Last Admin Trade Name Freq PRN Reason Stop Dose Admin Acetaminophen 650 mg 10/20/21 15:00 Acetaminophen 325 Mg Tab PO Q6H PRN Pain MILD(1-3)/Fever >100.5/DURÁN Albuterol 2.5 mg 10/20/21 15:00 Albuterol 2.5 Mg/3 Ml Nebu IH Q3HRT PRN Shortness Of Breath Dextrose 50 ml 10/21/21 08:00 Dextrose 50% In Water (25gm) 50 Ml Syringe IV Q30MIN PRN Hypoglycemia Protocol Hydromorphone HCl 0.5 mg 10/20/21 15:00 Hydromorphone 0.5 Mg/0.5 Ml Inj IV Q23H PRN Pain , Severe (7-10) Ferric Sodium Gluconate 110 mls @ 100 mls/hr 10/21/21 11:00 10/22/21 11:58 Complex 125 mg/ Sodium IV 10/28/21 11:05 Infused Chloride DAILY LUCIAN Infusion Dexamethasone 20 mg/ Sodium 55 mls @ 100 mls/hr 10/21/21 13:00 10/22/21 11:22 Chloride IV 10/24/21 22:32 Infused Q12HR LUCIAN Infusion Insulin Glargine 10 units 10/22/21 22:00 Insulin Glargine 100 Units/Ml SUB-Q QHS LUCIAN Insulin Human Lispro 0 unit 10/21/21 11:30 10/22/21 08:10 Insulin Lispro 100 Unit/Ml SUB-Q 4 unit ACHS LUCIAN Administration Protocol Oxycodone/Acetaminophen 1 tab 10/20/21 15:00 Oxycodone /Acetaminophen 5-325mg Tab PO Q16H PRN Pain, Moderate (4-6) Pantoprazole Sodium 40 mg 10/22/21 07:30 10/22/21 08:10 Pantoprazole 40 Mg Tab PO 40 mg QDAC LUCIAN Administration Sodium Chloride 10 ml 10/20/21 15:00 10/22/21 10:50 Sodium Chloride 0.9% 10 Ml Flush Syringe IV 10 ml BID LUCIAN Administration Sodium Chloride 10 ml 10/20/21 15:00 Sodium Chloride 0.9% 10 Ml Flush Syringe IV PRN PRN LINE FLUSH
[2021-10-22] MEDS ORDERED: INSULIN GLARGINE 100 UNITS/ML SUB-Q SCH (22:00)
[2021-10-22 23:12] LABS: Hematocrit 23.6 % (35.5-45.6); Hemoglobin 7.7 gm/dl (11.8-15.2)
[2021-10-23] MEDS: INSULIN LISPRO 100 UNIT/ML SUB-Q SCH ×4 (08:30→21:06)
[2021-10-23] MEDS: PANTOPRAZOLE 40 MG TAB PO SCH (09:27)
[2021-10-23] MEDS: dexAMETHasone 20 MG in SODIUM CHLORIDE 0.9% 50 ML IV SCH ×2 (09:34→23:37)
[2021-10-23] MEDS: SODIUM FERRIC GLUCON/SUCRO 125 MG in SODIUM CHLORIDE 0.9% 100 ML IV SCH (09:38)
--- NOTE | 2021-10-23 13:38 | Progress Note ---
Assessment and Plan Assessment and plan: This is a 66-year-old male with known past medical history of DM, OA, symptomatic snemia, ITP, colonic AV Malformation, Nicotine dependence, HCV, GERD, CHF, PSA, and medical noncompliance admitted for severe acute blood loss anemia probably secondary to GI bleed versus ITP Hospital Course to Date 10/21: Patient with active bleeding, large bloody stools and oozing from CVC site this am. Received 4units of PRBCs, worsen plt counts this am, H&H and vital site are stable. On IV steroids, continue to trend H&H and plts, check coags and fibrinogen. Hematology consulted. GI is also following, recommendations noted. Continue protonix gtt, patient switched to clear liquid diet. Hyperglycemia is most likely due to IV steroids, SSI initiated. 10/22: Remains stable on RA, denied any pain nor any discomfort at this time. No bloody stools overnight. s/p 6units of PRBCs, 2units of Plts, and 1cryo. H&H and vital signs stable this am, Protonix gtt transitioned to PO per GI. Hematology recommendations noted. Fibrinogen less than 150 this am, 1unit of Cryo ordered. Will continue to trend H&H, plts, and coags. Advance diet as tolerated. SSI and Lantus adjuted for hyperglycemia. Patient is stable for transfer to telemetry. 10/23: Patient seen and examined at the bedside. Remains stable on RA, denied any pain nor any discomfort at this time. No bloody stools overnight. I reviewed his previous admissions and unfortunately he has not followed up outpatient. In the past he was recommended to have a pill endoscopy. He was seen by hematology oncologist and they recommended to continue Decadron and plan for IVIG and also consider Nplate. Some transfusion protocol was recommended by them as noted below. Platelet today is 18 so we will proceed with transfusing another 1 dose of platelets. Again I have discussed the gravity of the patient's illness with him he verbalized understanding and understands importance of outpatient hematology of also asked for financial counseling to see if he qualifies for any insurance policy that we will help him with his treatment cost. He is currently status post 6units of PRBCs, 2units Plts, 1cryo.VSS ITP with chronic bleeding related to cirrhosis Will not tolerate plt count <20 Standing order: --Transfuse 1 unit pRBC whenever hct <23 --Transfuse 1 dose of plts whenever plt <20 Will need outpatient hematology follow up for Doptelet or Promacta So far remains critically ill we will continue current management. Anticipate discharge once platelet is over 20 and stable. Overall poor prognosis. D ietitian consultation. Assessment and Plan #Acute Blood Loss Anemia 2/2 #GI bleed- H/o AVM #Chronic ITP (Idiopathic Thrombocytopenic Purpura) - Presented with hgb level less than 2, stool occult is positive - With worsen thrombocytopenia this am - s/p 6units of PRBCs, 2units of Plts, and 1cryo - H&H stable this am, no bloody stools from overnight. No s/s of any active bleeding - Protonix gtt transitioned to PO per GI. On IV steroids - Advanced diet as tolerated - Fibrinogen less than 150, 1units of Cryo ordered - Continue to trend H&H, plts, and coags - Hematology consulted, appreciated recommendations - Transfer for Hgb less than 7 - GI signed off #Syncope-resolved - Probably due to low BP secondary to above - s/p multiple blood products - BP stable, sx resolved - Continue to trend H&H - Continue blood pressure monitor per protocol - Maintain MAP above 65 #Type 2 Diabetes Mellitus with Hyperglycemia - most likely due to IV steroids - BG check ACHS and SSI adjusted - Lantus qhs - While critically ill target blood glucose of 140-180 #Hepatitis C - Chronic, supportive care, outpatient GI follow-up. #GI/ DVT Prophylaxis - PPI- pepcid - SCDs bilateral lower extremities while in bed #Severe protein calorie malnutrition #Advance Care Planning - Disease education data, care plan, diagnoses, and prognosis were discussed with patient at the bedside. Patient is a FULL code. Patient acknowledged understanding and agreed with current care plan. The high probability of a clinically significant, sudden or life threatening deterioration of the [multiple] system(s) required my full and direct attention, intervention and personal management. The aggregate critical care time was [60] minutes. This time is in addition to time spent performing reported procedures but includes the following: [x] Data Review and interpretation [x] Patient assessment and monitoring of vital signs [x] Documentation [x] Medication orders and management Disposition Plan: Transfer to Telemetry Total Time Spent with Patient (Minutes): 60 History Interval history: Patient seen and examined no acute distress at this time but still feels significantly lethargic. Hospitalist Physical - Physical exam Narrative exam: General appearance: Present: no acute distress, cachectic - EENT Eyes: Present: PERRL, EOM intact ENT: hearing intact - Neck Neck: Present: normal ROM - Respiratory Respiratory effort: normal Respiratory: bilateral: CTA - Cardiovascular Rhythm: regular Heart Sounds: Present: S1 & S2 - Extremities Extremities: no ischemia, pulses intact, pulses symmetrical Peripheral Pulses: within normal limits - Abdominal General gastrointestinal: soft, non-distended, normal bowel sounds - Integumentary Integumentary: Present: clear, warm, dry - Psychiatric Psychiatric: appropriate mood/affect, cooperative - Neurologic Neurologic: CNII-XII intact, moves all extremities - Allied Health Allied health notes reviewed: nursing, case management - Constitutional Vitals: Temp Pulse Resp BP Pulse Ox 98 F 77 18 146/74 99 10/23/21 03:31 10/23/21 09:53 10/23/21 09:53 10/23/21 03:31 10/23/21 09:53 General appearance: Present: no acute distress, cachectic Results - Labs CBC & Chem 7: 10/23/21 13:25 10/22/21 06:10 Labs: Laboratory Last Values WBC 8.0 K/mm3 (4.5-11.0) 10/22/21 14:30 RBC 3.17 M/mm3 (3.65-5.03) L 10/22/21 14:30 Hgb 7.7 gm/dl (11.8-15.2) L 10/22/21 22:47 Hct 23.6 % (35.5-45.6) L 10/22/21 22:47 MCV 82 fl (84-94) L 10/22/21 14:30 MCH 26 pg (28-32) L 10/22/21 14:30 MCHC 32 % (32-34) 10/22/21 14:30 RDW 22.6 % (13.2-15.2) H 10/22/21 14:30 Plt Count 18 K/mm3 (140-440) L* 10/22/21 22:47 Add Manual Diff Complete 10/21/21 06:20 Total Counted 100 10/21/21 06:20 Seg Neutrophils % Joint Maker Machine 10/21/21 06:20 Seg Neuts % (Manual) 95.0 % (40.0-70.0) H 10/21/21 06:20 Band Neutrophils % 0 % 10/21/21 06:20 Lymphocytes % (Manual) 2.0 % (13.4-35.0) L 10/21/21 06:20 Reactive Lymphs % (Man) 0 % 10/21/21 06:20 Monocytes % (Manual) 3.0 % (0.0-7.3) 10/21/21 06:20 Eosinophils % (Manual) 0 % (0.0-4.3) 10/21/21 06:20 Basophils % (Manual) 0 % (0.0-1.8) 10/21/21 06:20 Metamyelocytes % 0 % 10/21/21 06:20 Myelocytes % 0 % 10/21/21 06:20 Promyelocytes % 0 % 10/21/21 06:20 Blast Cells % 0 % 10/21/21 06:20 Nucleated RBC % Not Reportable 10/21/21 06:20 Seg Neutrophils # Man 6.7 K/mm3 (1.8-7.7) 10/21/21 06:20 Band Neutrophils # 0.0 K/mm3 10/21/21 06:20 Lymphocytes # (Manual) 0.1 K/mm3 (1.2-5.4) L 10/21/21 06:20 Abs React Lymphs (Man) 0.0 K/mm3 10/21/21 06:20 Monocytes # (Manual) 0.2 K/mm3 (0.0-0.8) 10/21/21 06:20 Eosinophils # (Manual) 0.0 K/mm3 (0.0-0.4) 10/21/21 06:20 Basophils # (Manual) 0.0 K/mm3 (0.0-0.1) 10/21/21 06:20 Metamyelocytes # 0.0 K/mm3 10/21/21 06:20 Myelocytes # 0.0 K/mm3 10/21/21 06:20 Promyelocytes # 0.0 K/mm3 10/21/21 06:20 Blast Cells # 0.0 K/mm3 10/21/21 06:20 WBC Morphology Not Reportable 10/21/21 06:20 Hypersegmented Neuts Not Reportable 10/21/21 06:20 Hyposegmented Neuts Not Reportable 10/21/21 06:20 Hypogranular Neuts Not Reportable 10/21/21 06:20 Smudge Cells Not Reportable 10/21/21 06:20 Toxic Granulation Not Reportable 10/21/21 06:20 Toxic Vacuolation Not Reportable 10/21/21 06:20 Dohle Bodies Not Reportable 10/21/21 06:20 Pelger-Huet Anomaly Not Reportable 10/21/21 06:20 Katia Rods Not Reportable 10/21/21 06:20 Platelet Estimate Consistent w auto 10/21/21 06:20 Clumped Platelets Not Reportable 10/21/21 06:20 Plt Clumps, EDTA Not Reportable 10/21/21 06:20 Large Platelets Not Reportable 10/21/21 06:20 Giant Platelets Not Reportable 10/21/21 06:20 Platelet Satelliting Not Reportable 10/21/21 06:20 Plt Morphology Comment Not Reportable 10/21/21 06:20 RBC Morphology Not Reportable 10/21/21 06:20 Dimorphic RBCs Not Reportable 10/21/21 06:20 Polychromasia Few 10/21/21 06:20 Hypochromasia 1+ 10/21/21 06:20 Poikilocytosis Not Reportable 10/21/21 06:20 Anisocytosis 1+ 10/21/21 06:20 Microcytosis Not Reportable 10/21/21 06:20 Macrocytosis Not Reportable 10/21/21 06:20 Spherocytes Not Reportable 10/21/21 06:20 Pappenheimer Bodies Not Reportable 10/21/21 06:20 Sickle Cells Not Reportable 10/21/21 06:20 Target Cells Few 10/21/21 06:20 Tear Drop Cells Not Reportable 10/21/21 06:20 Ovalocytes Not Reportable 10/21/21 06:20 Helmet Cells Not Reportable 10/21/21 06:20 Suarez-Meade Bodies Not Reportable 10/21/21 06:20 [place] Rings Not Reportable 10/21/21 06:20 Luke Cells Not Reportable 10/21/21 06:20 Bite Cells Not Reportable 10/21/21 06:20 Crenated Cell Not Reportable 10/21/21 06:20 Elliptocytes Not Reportable 10/21/21 06:20 Acanthocytes (Spur) Not Reportable 10/21/21 06:20 Rouleaux Not Reportable 10/21/21 06:20 Hemoglobin C Crystals Not Reportable 10/21/21 06:20 Schistocytes Not Reportable 10/21/21 06:20 Malaria parasites Not Reportable 10/21/21 06:20 Percent Retic 3.37 % (0.78-2.58) H 10/21/21 10:46 Jl Bodies Not Reportable 10/21/21 06:20 Hem Pathologist Commnt No 10/21/21 06:20 PT 17.9 Sec. (12.2-14.9) H 10/22/21 06:10 INR 1.32 (0.87-1.13) H 10/22/21 06:10 APTT 35.7 Sec. (24.2-36.6) 10/22/21 06:10 Fibrinogen 141 mg/dl (211-480) L* 10/22/21 06:10 Sodium 139 mmol/L (137-145) 10/22/21 06:10 Potassium 4.8 mmol/L (3.6-5.0) 10/22/21 06:10 Chloride 107.3 mmol/L (98-107) H 10/22/21 06:10 Carbon Dioxide 24 mmol/L (22-30) 10/22/21 06:10 Anion Gap 13 mmol/L 10/22/21 06:10 BUN 38 mg/dL (9-20) H 10/22/21 06:10 Creatinine 0.7 mg/dL (0.8-1.3) L 10/22/21 06:10 Estimated GFR > 60 ml/min 10/22/21 06:10 BUN/Creatinine Ratio 54 % 10/22/21 06:10 Glucose 230 mg/dL (75-100) H 10/22/21 06:10 POC Glucose 257 mg/dL (70-105) H 10/22/21 21:54 Calcium 8.4 mg/dL (8.4-10.2) 10/22/21 06:10 Total Bilirubin 1.30 mg/dL (0.1-1.2) H 10/22/21 06:10 AST 134 units/L (5-40) H 10/22/21 06:10 ALT 102 units/L (7-56) H 10/22/21 06:10 Alkaline Phosphatase 60 units/L (35-129) 10/22/21 06:10 Lactate Dehydrogenase 401 units/L (91-180) H 10/21/21 10:46 Total Protein 5.3 g/dL (6.3-8.2) L 10/22/21 06:10 Albumin 3.5 g/dL (3.9-5) L 10/22/21 06:10 Albumin/Globulin Ratio 1.9 % 10/22/21 06:10 Urine Color Yellow (Yellow) 10/20/21 22:52 Urine Turbidity Slightly cloudy (Clear) 10/20/21 22:52 Urine pH 5.0 (5.0-7.0) 10/20/21 22:52 Ur Specific Griffin 1.020 (1.003-1.030) 10/20/21 22:52 Urine Protein 30 mg/dl mg/dL (Negative) 10/20/21 22:52 Urine Glucose (UA) Negative mg/dL (Negative) 10/20/21 22:52 Urine Ketones Trace mg/dL (Negative) 10/20/21 22:52 Urine Blood Negative (Negative) 10/20/21 22:52 Urine Nitrite Negative (Negative) 10/20/21 22:52 Ur Reducing Substances Not Reportable 10/20/21 22:52 Urine Bilirubin Negative (Negative) 10/20/21 22:52 Urine Ictotest Not Reportable 10/20/21 22:52 Urine Urobilinogen < 2.0 mg/dL (<2.0) 10/20/21 22:52 Ur Leukocyte Esterase Negative (Negative) 10/20/21 22:52 Urine WBC (Auto) < 1.0 /HPF (0.0-6.0) 10/20/21 22:52 Urine RBC (Auto) < 1.0 /HPF (0.0-6.0) 10/20/21 22:52 Urine Mucus Few /HPF 10/20/21 22:52 Blood Type A POSITIVE 10/20/21 10:22 Antibody Screen Positive 10/20/21 10:22 Antibody Identification Anti-E 10/20/21 10:22 Direct Antiglob Test Negative 10/22/21 06:10 SLIM, Poly Interpret Negative 10/22/21 06:10 Crossmatch See Detail 10/20/21 10:22 Parker/IV: Voiding Method Urinal Active Medications - Current Medications Current Medications: Generic Name Dose Route Start Last Admin Trade Name Freq PRN Reason Stop Dose Admin Acetaminophen 650 mg 10/20/21 15:00 Acetaminophen 325 Mg Tab PO Q6H PRN Pain MILD(1-3)/Fever >100.5/DURÁN Albuterol 2.5 mg 10/20/21 15:00 Albuterol 2.5 Mg/3 Ml Nebu IH Q3HRT PRN Shortness Of Breath Dextrose 50 ml 10/21/21 08:00 Dextrose 50% In Water (25gm) 50 Ml Syringe IV Q30MIN PRN Hypoglycemia Protocol Hydromorphone HCl 0.5 mg 10/20/21 15:00 Hydromorphone 0.5 Mg/0.5 Ml Inj IV Q23H PRN Pain , Severe (7-10) Ferric Sodium Gluconate 110 mls @ 100 mls/hr 10/21/21 11:00 10/23/21 09:38 Complex 125 mg/ Sodium IV 10/28/21 11:05 100 mls/hr Chloride DAILY LUCIAN Administration Dexamethasone 20 mg/ Sodium 55 mls @ 100 mls/hr 10/21/21 13:00 10/23/21 09:34 Chloride IV 10/24/21 22:32 100 mls/hr Q12HR LUICAN Administration Insulin Glargine 20 units 10/23/21 22:00 Insulin Glargine 100 Units/Ml SUB-Q QHS LUCIAN Insulin Human Lispro 0 unit 10/21/21 11:30 10/23/21 12:27 Insulin Lispro 100 Unit/Ml SUB-Q 4 unit ACHS LUCIAN Administration Protocol Oxycodone/Acetaminophen 1 tab 10/20/21 15:00 Oxycodone /Acetaminophen 5-325mg Tab PO Q16H PRN Pain, Moderate (4-6) Pantoprazole Sodium 40 mg 10/22/21 07:30 10/23/21 09:27 Pantoprazole 40 Mg Tab PO 40 mg QDAC LUCIAN Administration Sodium Chloride 10 ml 10/20/21 15:00 10/23/21 09:28 Sodium Chloride 0.9% 10 Ml Flush Syringe IV 10 ml BID LUCIAN Administration Sodium Chloride 10 ml 10/20/21 15:00 Sodium Chloride 0.9% 10 Ml Flush Syringe IV PRN PRN LINE FLUSH Nutrition/Malnutrition Assess - Dietary Evaluation Nutrition/Malnutrition Findings: Nutrition Notes Start: 10/21/21 1 5:21 Freq: Status: Active Protocol: Document 10/21/21 15:21 ROSEANNE (Rec: 10/21/21 15:37 ROSEANNE [id number]) Nutrition Notes Need for Assessment generated from: MD Order,Education Initial or Follow up Brief Note Current Diagnosis Diabetes Other Pertinent Diagnosis Anemia, GI Bleed, Syncope, GERD, CHF, OA. Current Diet Regular Diet (from D 10/21). 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 Weight Status Appropriate Subjective/Other Information RD consult for nutrition education assessment. No reports available on Pt's PO intake of meals at the time , will assess at F/U. Pt is on Room Air, O2 saturation @ 99%, according to Physical Assessment History notes. Pt presents diarrhea with hemoccult positive, according to Physical Assessment History notes. Pt still in critical condition , not a candidate for Nutrition Education at the time, will assess feasibility on F/U. Percent of energy/protein needs met: Prescribed Regular Diet provides for energy/protein needs (2,289 Kcal/89 g) during LOS. Nutrition Intervention Follow-Up By: 10/28/21 Additional Comments Nutrition education will be provided at F/U, if feasible. Continue monitoring food tolerance, %PO intake of meals , and BM.
[2021-10-23 14:06] LABS: Hematocrit 28.8 % (35.5-45.6); Hemoglobin 9.3 gm/dl (11.8-15.2); Mean Corpuscular HGB Conc 32 % (32-34); Mean Corpuscular Volume 82 fl (84-94); Red Blood Count 3.51 M/mm3 (3.65-5.03)
[2021-10-23 14:14] LABS: Red Cell Distribution Width 21.6 % (13.2-15.2)
[2021-10-23 14:15] LABS: Platelet Count 13 K/mm3 (140-440)
[2021-10-23 14:16] LABS: INR 1.08 (0.87-1.13); Partial Thromboplastin Time 25.6 Sec. (24.2-36.6)
[2021-10-23 14:49] LABS: Alanine Aminotransferase 71 units/L (7-56); Albumin 3.6 g/dL (3.9-5); Blood Urea Nitrogen 22 mg/dL (9-20); Calcium 8.7 mg/dL (8.4-10.2); Hemolysis Index 5
[2021-10-23 14:50] LABS: BUN/Creatinine Ratio 31
--- NOTE | 2021-10-23 15:10 | Hem/Onc Progress Note ---
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 DATA REVIEWED BELOW IMPRESSION: ITP with chronic bleeding related to cirrhosis Will not tolerate plt count <20 PLAN: IVIG today Continue decadron Will consider Nplate Standing order: --Transfuse 1 unit pRBC whenever hct <23 --Transfuse 1 dose of plts whenever plt <20 Will need outpatient hematology follow up for Doptelet or Promacta Laboratory Last Values WBC 11.4 K/mm3 (4.5-11.0) H 10/23/21 13:25 Hgb 9.3 gm/dl (11.8-15.2) L 10/23/21 13:25 Hct 28.8 % (35.5-45.6) L 10/23/21 13:25 MCV 82 fl (84-94) L 10/23/21 13:25 Plt Count 13 K/mm3 (140-440) L* 10/23/21 13:25 Seg Neuts % (Manual) 95.0 % (40.0-70.0) H 10/21/21 06:20 Lymphocytes % (Manual) 2.0 % (13.4-35.0) L 10/21/21 06:20 Lymphocytes # (Manual) 0.1 K/mm3 (1.2-5.4) L 10/21/21 06:20 Percent Retic 3.37 % (0.78-2.58) H 10/21/21 10:46 PT 15.2 Sec. (12.2-14.9) H 10/23/21 13:25 INR 1.08 (0.87-1.13) 10/23/21 13:25 APTT 25.6 Sec. (24.2-36.6) 10/23/21 13:25 Fibrinogen 191 mg/dl (211-480) L 10/23/21 13:25 Creatinine 0.7 mg/dL (0.8-1.3) L 10/23/21 13:50 AST 34 units/L (5-40) 10/23/21 13:50 ALT 71 units/L (7-56) H 10/23/21 13:50 Alkaline Phosphatase 69 units/L (35-129) 10/23/21 13:50 Lactate Dehydrogenase 401 units/L (91-180) H 10/21/21 10:46 Antibody Screen Positive 10/20/21 10:22 Antibody Identification Anti-E 10/20/21 10:22 Direct Antiglob Test Negative 10/22/21 06:10 SLIM, Poly Interpret Negative 10/22/21 06:10 Crossmatch See Detail 10/20/21 10:22 Objective - Constitutional Vitals: Last Vital Signs Temp 98.1 F 10/23/21 11:46 Pulse 77 10/23/21 09:53 Resp 18 10/23/21 11:46 BP 147/77 10/23/21 11:46 Pulse Ox 99 10/23/21 09:53 - Labs Lab Results: Laboratory Results - last 24 hr 10/20/21 10/22/21 10/22/21 10:22 16:35 21:13 WBC RBC Hgb Hct MCV MCH MCHC RDW Plt Count PT INR APTT Fibrinogen Sodium Potassium Chloride Carbon Dioxide Anion Gap BUN Creatinine Estimated GFR BUN/Creatinine Ratio Glucose POC Glucose 182 H 260 H Calcium Total Bilirubin AST ALT Alkaline Phosphatase Total Protein Albumin Albumin/Globulin Ratio Crossmatch See Detail 10/22/21 10/22/21 10/23/21 21:54 22:47 13:25 WBC 11.4 H RBC 3.51 L Hgb 7.7 L 9.3 L Hct 23.6 L 28.8 L MCV 82 L MCH 27 L MCHC 32 RDW 21.6 H Plt Count 18 L* 13 L* PT INR APTT Fibrinogen Sodium Potassium Chloride Carbon Dioxide Anion Gap BUN Creatinine Estimated GFR BUN/Creatinine Ratio Glucose POC Glucose 257 H Calcium Total Bilirubin AST ALT Alkaline Phosphatase Total Protein Albumin Albumin/Globulin Ratio Crossmatch 10/23/21 10/23/21 13:25 13:50 WBC RBC Hgb Hct MCV MCH MCHC RDW Plt Count PT 15.2 H INR 1.08 APTT 25.6 Fibrinogen 191 L Sodium 138 Potassium 4.0 Chloride 106.0 Carbon Dioxide 25 Anion Gap 11 BUN 22 H Creatinine 0.7 L Estimated GFR > 60 BUN/Creatinine Ratio 31 Glucose 263 H POC Glucose Calcium 8.7 Total Bilirubin 1.30 H AST 34 ALT 71 H Alkaline Phosphatase 69 Total Protein 5.2 L Albumin 3.6 L Albumin/Globulin Ratio 2.3 Crossmatch Medications & Allergies - Medications Allergies/Adverse Reactions: Allergies No Known Allergies Allergy (Verified 10/23/21 14:52) Home Medications: Home Medications Medication Instructions Recorded Confirmed Last Taken Type No Known Home Medications [No 10/23/21 10/23/21 Unknown History Reported Home Medications] Active Medications: Generic Name Dose Route Start Last Admin Trade Name Freq PRN Reason Stop Dose Admin Acetaminophen 650 mg 10/20/21 15:00 Acetaminophen 325 Mg Tab PO Q6H PRN Pain MILD(1-3)/Fever >100.5/DURÁN Albuterol 2.5 mg 10/20/21 15:00 Albuterol 2.5 Mg/3 Ml Nebu IH Q3HRT PRN Shortness Of Breath Dextrose 50 ml 10/21/21 08:00 Dextrose 50% In Water (25gm) 50 Ml Syringe IV Q30MIN PRN Hypoglycemia Protocol Hydromorphone HCl 0.5 mg 10/20/21 15:00 Hydromorphone 0.5 Mg/0.5 Ml Inj IV Q23H PRN Pain , Severe (7-10) Ferric Sodium Gluconate 110 mls @ 100 mls/hr 10/21/21 11:00 10/23/21 09:38 Complex 125 mg/ Sodium IV 10/28/21 11:05 100 mls/hr Chloride DAILY LUCIAN Administration Dexamethasone 20 mg/ Sodium 55 mls @ 100 mls/hr 10/21/21 13:00 10/23/21 09:34 Chloride IV 10/24/21 22:32 100 mls/hr Q12HR LUCIAN Administration Insulin Glargine 20 units 10/23/21 22:00 Insulin Glargine 100 Units/Ml SUB-Q QHS LUCIAN Insulin Human Lispro 0 unit 10/21/21 11:30 10/23/21 12:27 Insulin Lispro 100 Unit/Ml SUB-Q 4 unit ACHS LUCIAN Administration Protocol Oxycodone/Acetaminophen 1 tab 10/20/21 15:00 Oxycodone /Acetaminophen 5-325mg Tab PO Q16H PRN Pain, Moderate (4-6) Pantoprazole Sodium 40 mg 10/22/21 07:30 10/23/21 09:27 Pantoprazole 40 Mg Tab PO 40 mg QDAC LUCIAN Administration Sodium Chloride 10 ml 10/20/21 15:00 10/23/21 09:28 Sodium Chloride 0.9% 10 Ml Flush Syringe IV 10 ml BID LUCIAN Administration Sodium Chloride 10 ml 10/20/21 15:00 Sodium Chloride 0.9% 10 Ml Flush Syringe IV PRN PRN LINE FLUSH
[2021-10-23] MEDS ORDERED: IMMUNE GLOBULIN G/GLY/IGA AVG 46 20 GM/200 ML VIAL IV SCH (16:00)
[2021-10-23] MEDS ORDERED: IGA AVG IV SCH (17:00)
[2021-10-23] MEDS ORDERED: GLY IV SCH (17:00)
[2021-10-23] MEDS ORDERED: IMMUNE GLOBUL IV SCH (17:00)
[2021-10-23] MEDS: INSULIN GLARGINE 100 UNITS/ML SUB-Q SCH (21:06)
[2021-10-24] MEDS ORDERED: SODIUM CHLORIDE 0.9% 500 ML 500 ML IV ONE (02:45)
[2021-10-24 04:20] LABS: Hemoglobin 8.3 gm/dl (11.8-15.2); Mean Corpuscular HGB Conc 32 % (32-34); Mean Corpuscular Volume 83 fl (84-94); Red Blood Count 3.15 M/mm3 (3.65-5.03)
[2021-10-24 04:41] LABS: Platelet Count 22 K/mm3 (140-440); Red Cell Distribution Width 22.1 % (13.2-15.2)
[2021-10-24 05:00] LABS: Blood Urea Nitrogen 15 mg/dL (9-20); Calcium 8.6 mg/dL (8.4-10.2); Hemolysis Index 36
[2021-10-24 05:25] LABS: BUN/Creatinine Ratio 30
[2021-10-24] MEDS: INSULIN LISPRO 100 UNIT/ML SUB-Q SCH ×5 (08:59→22:03)
[2021-10-24] MEDS: dexAMETHasone 20 MG in SODIUM CHLORIDE 0.9% 50 ML IV SCH ×2 (09:50→22:03)
[2021-10-24] MEDS: PANTOPRAZOLE 40 MG TAB PO SCH (09:50)
[2021-10-24] MEDS: SODIUM FERRIC GLUCON/SUCRO 125 MG in SODIUM CHLORIDE 0.9% 100 ML IV SCH (09:55)
--- NOTE | 2021-10-24 12:18 | Progress Note ---
Assessment and Plan Assessment and plan: This is a 66-year-old male with known past medical history of DM, OA, symptomatic snemia, ITP, colonic AV Malformation, Nicotine dependence, HCV, GERD, CHF, PSA, and medical noncompliance admitted for severe acute blood loss anemia probably secondary to GI bleed versus ITP Hospital Course to Date 10/21: Patient with active bleeding, large bloody stools and oozing from CVC site this am. Received 4units of PRBCs, worsen plt counts this am, H&H and vital site are stable. On IV steroids, continue to trend H&H and plts, check coags and fibrinogen. Hematology consulted. GI is also following, recommendations noted. Continue protonix gtt, patient switched to clear liquid diet. Hyperglycemia is most likely due to IV steroids, SSI initiated. 10/22: Remains stable on RA, denied any pain nor any discomfort at this time. No bloody stools overnight. s/p 6units of PRBCs, 2units of Plts, and 1cryo. H&H and vital signs stable this am, Protonix gtt transitioned to PO per GI. Hematology recommendations noted. Fibrinogen less than 150 this am, 1unit of Cryo ordered. Will continue to trend H&H, plts, and coags. Advance diet as tolerated. SSI and Lantus adjuted for hyperglycemia. Patient is stable for transfer to telemetry. 10/23: Patient seen and examined at the bedside. Remains stable on RA, denied any pain nor any discomfort at this time. No bloody stools overnight. I reviewed his previous admissions and unfortunately he has not followed up outpatient. In the past he was recommended to have a pill endoscopy. He was seen by hematology oncologist and they recommended to continue Decadron and plan for IVIG and also consider Nplate. Some transfusion protocol was recommended by them as noted below. Platelet today is 18 so we will proceed with transfusing another 1 dose of platelets. Again I have discussed the gravity of the patient's illness with him he verbalized understanding and understands importance of outpatient hematology of also asked for financial counseling to see if he qualifies for any insurance policy that we will help him with his treatment cost. He is currently status post 6units of PRBCs, 2units Plts, 1cryo.VSS ITP with chronic bleeding related to cirrhosis Will not tolerate plt count <20 Standing order: --Transfuse 1 unit pRBC whenever hct <23 --Transfuse 1 dose of plts whenever plt <20 Will need outpatient hematology follow up for Doptelet or Promacta So far remains critically ill we will continue current management. Anticipate discharge once platelet is over 20 and stable. Overall poor prognosis. D ietitian consultation. 10/24: Patient seen and examined I discussed with decorator lighting fixtures: The patient is receiving additional IVIG today. Doptelet sounds are recommended I have discussed with case management to see if there are resources to provide this for the patient. Anticipate discharge in a.m. if platelets remain stable. Financial services also limited with the patient and is working on some type of financial support. This will hopefully help the patient receive care outside of the hospital. Plan discussed with the patient and he verbalized understanding Assessment and Plan #Acute Blood Loss Anemia 2/2 #GI bleed- H/o AVM #Chronic ITP (Idiopathic Thrombocytopenic Purpura) - Presented with hgb level less than 2, stool occult is positive - With worsen thrombocytopenia this am - s/p 6units of PRBCs, 2units of Plts, and 1cryo - H&H stable this am, no bloody stools from overnight. No s/s of any active bleeding - Protonix gtt transitioned to PO per GI. On IV steroids - Advanced diet as tolerated - Fibrinogen less than 150, 1units of Cryo ordered - Continue to trend H&H, plts, and coags - Hematology consulted, appreciated recommendations - Transfer for Hgb less than 7 - GI signed off #Syncope-resolved - Probably due to low BP secondary to above - s/p multiple blood products - BP stable, sx resolved - Continue to trend H&H - Continue blood pressure monitor per protocol - Maintain MAP above 65 #Type 2 Diabetes Mellitus with Hyperglycemia - most likely due to IV steroids - BG check ACHS and SSI adjusted - Lantus qhs - While critically ill target blood glucose of 140-180 #Hepatitis C - Chronic, supportive care, outpatient GI follow-up. #GI/ DVT Prophylaxis - PPI- pepcid - SCDs bilateral lower extremities while in bed #Severe protein calorie malnutrition #Advance Care Planning - Disease education data, care plan, diagnoses, and prognosis were discussed with patient at the bedside. Patient is a FULL code. Patient acknowledged understanding and agreed with current care plan. The high probability of a clinically significant, sudden or life threatening deterioration of the [multiple] system(s) required my full and direct attention, intervention and personal management. The aggregate critical care time was [60] minutes. This time is in addition to time spent performing reported procedures but includes the following: [x] Data Review and interpretation [x] Patient assessment and monitoring of vital signs [x] Documentation [x] Medication orders and management Disposition Plan: Transfer to Telemetry Total Time Spent with Patient (Minutes): 60 History Interval history: Patient seen and examined no acute distress at this time but still feels significantly lethargic. He claims that he does ambulate to the bathroom and back. Hospitalist Physical - Physical exam Narrative exam: General appearance: Present: no acute distress, cachectic - EENT Eyes: Present: PERRL, EOM intact ENT: hearing intact - Neck Neck: Present: normal ROM - Respiratory Respiratory effort: normal Respiratory: bilateral: CTA - Cardiovascular Rhythm: regular Heart Sounds: Present: S1 & S2 - Extremities Extremities: no ischemia, pulses intact, pulses symmetrical Peripheral Pulses: within normal limits - Abdominal General gastrointestinal: soft, non-distended, normal bowel sounds - Integumentary Integumentary: Present: clear, warm, dry - Psychiatric Psychiatric: appropriate mood/affect, cooperative - Neurologic Neurologic: CNII-XII intact, moves all extremities - Allied Health Allied health notes reviewed: nursing, case management - Constitutional Vitals: Temp Pulse Resp BP Pulse Ox 98.0 F 76 18 154/75 99 10/24/21 04:26 10/24/21 04:26 10/24/21 04:26 10/24/21 04:26 10/24/21 04:26 General appearance: Present: no acute distress, cachectic Results - Labs CBC & Chem 7: 10/24/21 03:24 10/24/21 03:24 Labs: Laboratory Last Values WBC 8.3 K/mm3 (4.5-11.0) 10/24/21 03:24 RBC 3.15 M/mm3 (3.65-5.03) L 10/24/21 03:24 Hgb 8.3 gm/dl (11.8-15.2) L 10/24/21 03:24 Hct 26.0 % (35.5-45.6) L 10/24/21 03:24 MCV 83 fl (84-94) L 10/24/21 03:24 MCH 26 pg (28-32) L 10/24/21 03:24 MCHC 32 % (32-34) 10/24/21 03:24 RDW 22.1 % (13.2-15.2) H 10/24/21 03:24 Plt Count 22 K/mm3 (140-440) L 10/24/21 03:24 Add Manual Diff Complete 10/21/21 06:20 Total Counted 100 10/21/21 06:20 Seg Neutrophils % Chronometer Assembler 10/21/21 06:20 Seg Neuts % (Manual) 95.0 % (40.0-70.0) H 10/21/21 06:20 Band Neutrophils % 0 % 10/21/21 06:20 Lymphocytes % (Manual) 2.0 % (13.4-35.0) L 10/21/21 06:20 Reactive Lymphs % (Man) 0 % 10/21/21 06:20 Monocytes % (Manual) 3.0 % (0.0-7.3) 10/21/21 06:20 Eosinophils % (Manual) 0 % (0.0-4.3) 10/21/21 06:20 Basophils % (Manual) 0 % (0.0-1.8) 10/21/21 06:20 Metamyelocytes % 0 % 10/21/21 06:20 Myelocytes % 0 % 10/21/21 06:20 Promyelocytes % 0 % 10/21/21 06:20 Blast Cells % 0 % 10/21/21 06:20 Nucleated RBC % Not Reportable 10/21/21 06:20 Seg Neutrophils # Man 6.7 K/mm3 (1.8-7.7) 10/21/21 06:20 Band Neutrophils # 0.0 K/mm3 10/21/21 06:20 Lymphocytes # (Manual) 0.1 K/mm3 (1.2-5.4) L 10/21/21 06:20 Abs React Lymphs (Man) 0.0 K/mm3 10/21/21 06:20 Monocytes # (Manual) 0.2 K/mm3 (0.0-0.8) 10/21/21 06:20 Eosinophils # (Manual) 0.0 K/mm3 (0.0-0.4) 10/21/21 06:20 Basophils # (Manual) 0.0 K/mm3 (0.0-0.1) 10/21/21 06:20 Metamyelocytes # 0.0 K/mm3 10/21/21 06:20 Myelocytes # 0.0 K/mm3 10/21/21 06:20 Promyelocytes # 0.0 K/mm3 10/21/21 06:20 Blast Cells # 0.0 K/mm3 10/21/21 06:20 WBC Morphology Not Reportable 10/21/21 06:20 Hypersegmented Neuts Not Reportable 10/21/21 06:20 Hyposegmented Neuts Not Reportable 10/21/21 06:20 Hypogranular Neuts Not Reportable 10/21/21 06:20 Smudge Cells Not Reportable 10/21/21 06:20 Toxic Granulation Not Reportable 10/21/21 06:20 Toxic Vacuolation Not Reportable 10/21/21 06:20 Dohle Bodies Not Reportable 10/21/21 06:20 Pelger-Huet Anomaly Not Reportable 10/21/21 06:20 Katia Rods Not Reportable 10/21/21 06:20 Platelet Estimate Consistent w auto 10/21/21 06:20 Clumped Platelets Not Reportable 10/21/21 06:20 Plt Clumps, EDTA Not Reportable 10/21/21 06:20 Large Platelets Not Reportable 10/21/21 06:20 Giant Platelets Not Reportable 10/21/21 06:20 Platelet Satelliting Not Reportable 10/21/21 06:20 Plt Morphology Comment Not Reportable 10/21/21 06:20 RBC Morphology Not Reportable 10/21/21 06:20 Dimorphic RBCs Not Reportable 10/21/21 06:20 Polychromasia Few 10/21/21 06:20 Hypochromasia 1+ 10/21/21 06:20 Poikilocytosis Not Reportable 10/21/21 06:20 Anisocytosis 1+ 10/21/21 06:20 Microcytosis Not Reportable 10/21/21 06:20 Macrocytosis Not Reportable 10/21/21 06:20 Spherocytes Not Reportable 10/21/21 06:20 Pappenheimer Bodies Not Reportable 10/21/21 06:20 Sickle Cells Not Reportable 10/21/21 06:20 Target Cells Few 10/21/21 06:20 Tear Drop Cells Not Reportable 10/21/21 06:20 Ovalocytes Not Reportable 10/21/21 06:20 Helmet Cells Not Reportable 10/21/21 06:20 Suarez-Laura Bodies Not Reportable 10/21/21 06:20 Ohlman Rings Not Reportable 10/21/21 06:20 Luke Cells Not Reportable 10/21/21 06:20 Bite Cells Not Reportable 10/21/21 06:20 Crenated Cell Not Reportable 10/21/21 06:20 Elliptocytes Not Reportable 10/21/21 06:20 Acanthocytes (Spur) Not Reportable 10/21/21 06:20 Rouleaux Not Reportable 10/21/21 06:20 Hemoglobin C Crystals Not Reportable 10/21/21 06:20 Schistocytes Not Reportable 10/21/21 06:20 Malaria parasites Not Reportable 10/21/21 06:20 Percent Retic 3.37 % (0.78-2.58) H 10/21/21 10:46 Jl Bodies Not Reportable 10/21/21 06:20 Hem Pathologist Commnt No 10/21/21 06:20 PT 15.2 Sec. (12.2-14.9) H 10/23/21 13:25 INR 1.08 (0.87-1.13) 10/23/21 13:25 APTT 25.6 Sec. (24.2-36.6) 10/23/21 13:25 Fibrinogen 191 mg/dl (211-480) L 10/23/21 13:25 Sodium 137 mmol/L (137-145) 10/24/21 03:24 Potassium 3.9 mmol/L (3.6-5.0) 10/24/21 03:24 Chloride 105.1 mmol/L (98-107) 10/24/21 03:24 Carbon Dioxide 26 mmol/L (22-30) 10/24/21 03:24 Anion Gap 10 mmol/L 10/24/21 03:24 BUN 15 mg/dL (9-20) 10/24/21 03:24 Creatinine 0.5 mg/dL (0.8-1.3) L 10/24/21 03:24 Estimated GFR > 60 ml/min 10/24/21 03:24 BUN/Creatinine Ratio 30 % 10/24/21 03:24 Glucose 92 mg/dL (75-100) 10/24/21 03:24 POC Glucose 341 mg/dL (70-105) H 10/23/21 21:20 Calcium 8.6 mg/dL (8.4-10.2) 10/24/21 03:24 Total Bilirubin 1.30 mg/dL (0.1-1.2) H 10/23/21 13:50 AST 34 units/L (5-40) 10/23/21 13:50 ALT 71 units/L (7-56) H 10/23/21 13:50 Alkaline Phosphatase 69 units/L (35-129) 10/23/21 13:50 Lactate Dehydrogenase 401 units/L (91-180) H 10/21/21 10:46 Total Protein 5.2 g/dL (6.3-8.2) L 10/23/21 13:50 Albumin 3.6 g/dL (3.9-5) L 10/23/21 13:50 Albumin/Globulin Ratio 2.3 % 10/23/21 13:50 Urine Color Yellow (Yellow) 10/20/21 22:52 Urine Turbidity Slightly cloudy (Clear) 10/20/21 22:52 Urine pH 5.0 (5.0-7.0) 10/20/21 22:52 Ur Specific [place] 1.020 (1.003-1.030) 10/20/21 22:52 Urine Protein 30 mg/dl mg/dL (Negative) 10/20/21 22:52 Urine Glucose (UA) Negative mg/dL (Negative) 10/20/21 22:52 Urine Ketones Trace mg/dL (Negative) 10/20/21 22:52 Urine Blood Negative (Negative) 10/20/21 22:52 Urine Nitrite Negative (Negative) 10/20/21 22:52 Ur Reducing Substances Not Reportable 10/20/21 22:52 Urine Bilirubin Negative (Negative) 10/20/21 22:52 Urine Ictotest Not Reportable 10/20/21 22:52 Urine Urobilinogen < 2.0 mg/dL (<2.0) 10/20/21 22:52 Ur Leukocyte Esterase Negative (Negative) 10/20/21 22:52 Urine WBC (Auto) < 1.0 /HPF (0.0-6.0) 10/20/21 22:52 Urine RBC (Auto) < 1.0 /HPF (0.0-6.0) 10/20/21 22:52 Urine Mucus Few /HPF 10/20/21 22:52 Blood Type A POSITIVE 10/24/21 03:24 Antibody Screen Positive 10/20/21 10:22 Antibody Identification Anti-E 10/20/21 10:22 Direct Antiglob Test Negative 10/22/21 06:10 SLIM, Poly Interpret Negative 10/22/21 06:10 Crossmatch See Detail 10/20/21 10:22 Parker/IV: Voiding Method Urinal Active Medications - Current Medications Current Medications: Generic Name Dose Route Start Last Admin Trade Name Freq PRN Reason Stop Dose Admin Acetaminophen 650 mg 10/20/21 15:00 Acetaminophen 325 Mg Tab PO Q6H PRN Pain MILD(1-3)/Fever >100.5/DURÁN Albuterol 2.5 mg 10/20/21 15:00 Albuterol 2.5 Mg/3 Ml Nebu IH Q3HRT PRN Shortness Of Breath Dextrose 50 ml 10/21/21 08:00 Dextrose 50% In Water (25gm) 50 Ml Syringe IV Q30MIN PRN Hypoglycemia Protocol Hydromorphone HCl 0.5 mg 10/20/21 15:00 Hydromorphone 0.5 Mg/0.5 Ml Inj IV Q23H PRN Pain , Severe (7-10) Ferric Sodium Gluconate 110 mls @ 100 mls/hr 10/21/21 11:00 10/24/21 09:55 Complex 125 mg/ Sodium IV 10/28/21 11:05 100 mls/hr Chloride DAILY LUCIAN Administration Dexamethasone 20 mg/ Sodium 55 mls @ 100 mls/hr 10/21/21 13:00 10/24/21 09:50 Chloride IV 10/24/21 22:32 100 mls/hr Q12HR LUCIAN Administration Insulin Glargine 20 units 10/23/21 22:00 10/23/21 21:06 Insulin Glargine 100 Units/Ml SUB-Q 20 units QHS LUCIAN Administration Insulin Human Lispro 0 unit 10/21/21 11:30 10/24/21 12:08 Insulin Lispro 100 Unit/Ml SUB-Q Not Given ACHS LUCIAN Protocol Oxycodone/Acetaminophen 1 tab 10/20/21 15:00 Oxycodone /Acetaminophen 5-325mg Tab PO Q16H PRN Pain, Moderate (4-6) Pantoprazole Sodium 40 mg 10/22/21 07:30 10/24/21 09:50 Pantoprazole 40 Mg Tab PO 40 mg QDAC LUCIAN Administration Sodium Chloride 10 ml 10/20/21 15:00 10/24/21 09:51 Sodium Chloride 0.9% 10 Ml Flush Syringe IV 10 ml BID LUCIAN Administration Sodium Chloride 10 ml 10/20/21 15:00 Sodium Chloride 0.9% 10 Ml Flush Syringe IV PRN PRN LINE FLUSH Nutrition/Malnutrition Assess - Dietary Evaluation Nutrition/Malnutrition Findings: Nutrition Notes Start: 10/21/21 15:21 Freq: Status: Active Protocol: Document 10/21/21 15:21 ROSEANNE (Rec: 10/21/21 15:37 ROSEANNE [id number]) Nutrition Notes Need for Assessment generated from: MD Order,Education Initial or Follow up Brief Note Current Diagnosis Diabetes Other Pertinent Diagnosis Anemia, GI Bleed, Syncope, GERD, CHF, OA. Current Diet Regular Diet (from D 10/21). Height 5 ft 6 in Weight 56.699 kg [place] Body Weight (kg) 64.54 BMI 20.1 Intake Prior to Admission Good Weight change and time frame Pt denies having loss body weight [employer]. Weight Status Appropriate Subjective/Other Information RD consult for nutrition education assessment. No reports available on Pt's PO intake of meals at the time , will assess at F/U. Pt is on Room Air, O2 saturation @ 99%, according to Physical Assessment History notes. Pt presents diarrhea with hemoccult positive, according to Physical Assessment History notes. Pt still in critical condition , not a candidate for Nutrition Education at the time, will assess feasibility on F/U. Percent of energy/protein needs met: Prescribed Regular Diet provides for energy/protein needs (2,289 Kcal/89 g) during LOS. Nutrition Intervention Follow-Up By: 10/28/21 Additional Comments Nutrition education will be provided at F/U, if feasible. Continue monitoring food tolerance, %PO intake of meals , and BM.
[2021-10-24 15:08] LABS: Cardiolipin Ab IgA <2.0 APL-U/mL (<20.0); Cardiolipin Ab IgG <2.0 GPL-U/mL (<20.0); Cardiolipin Ab IgM <2.0 MPL-U/mL (<20.0)
[2021-10-24] MEDS: INSULIN GLARGINE 100 UNITS/ML SUB-Q SCH (22:04)
[2021-10-25 05:16] LABS: Hematocrit 29.3 % (35.5-45.6); Hemoglobin 9.6 gm/dl (11.8-15.2); Mean Corpuscular HGB Conc 33 % (32-34); Mean Corpuscular Volume 83 fl (84-94); Red Blood Count 3.53 M/mm3 (3.65-5.03)
[2021-10-25 05:26] LABS: Platelet Count 62 K/mm3 (140-440); Red Cell Distribution Width 22.2 % (13.2-15.2)
[2021-10-25 05:35] LABS: Blood Urea Nitrogen 19 mg/dL (9-20); Calcium 9.3 mg/dL (8.4-10.2); Hemolysis Index 7
[2021-10-25 05:40] LABS: BUN/Creatinine Ratio 27
[2021-10-25] MEDS ORDERED: INSULIN LISPRO 100 UNIT/ML SUB-Q NR (09:16)
[2021-10-25] MEDS: PANTOPRAZOLE 40 MG TAB PO SCH (09:45)
[2021-10-25] MEDS: INSULIN LISPRO 100 UNIT/ML SUB-Q SCH ×4 (09:45→21:28)
[2021-10-25] MEDS: SODIUM FERRIC GLUCON/SUCRO 125 MG in SODIUM CHLORIDE 0.9% 100 ML IV SCH (09:45)
[2021-10-25] MEDS ORDERED: SODIUM CHLORIDE 0.9% 1000 ML 1,000 ML IV ONE (11:42)
[2021-10-25] MEDS ORDERED: INSULIN GLARGINE 100 UNITS/ML SUB-Q SCH (15:12)
--- NOTE | 2021-10-25 16:31 | Progress Note ---
Assessment and Plan Assessment and plan: This is a 66-year-old male with known past medical history of DM, OA, symptomatic snemia, ITP, colonic AV Malformation, Nicotine dependence, HCV, GERD, CHF, PSA, and medical noncompliance admitted for severe acute blood loss anemia probably secondary to GI bleed versus ITP Hospital Course to Date 10/21: Patient with active bleeding, large bloody stools and oozing from CVC site this am. Received 4units of PRBCs, worsen plt counts this am, H&H and vital site are stable. On IV steroids, continue to trend H&H and plts, check coags and fibrinogen. Hematology consulted. GI is also following, recommendations noted. Continue protonix gtt, patient switched to clear liquid diet. Hyperglycemia is most likely due to IV steroids, SSI initiated. 10/22: Remains stable on RA, denied any pain nor any discomfort at this time. No bloody stools overnight. s/p 6units of PRBCs, 2units of Plts, and 1cryo. H&H and vital signs stable this am, Protonix gtt transitioned to PO per GI. Hematology recommendations noted. Fibrinogen less than 150 this am, 1unit of Cryo ordered. Will continue to trend H&H, plts, and coags. Advance diet as tolerated. SSI and Lantus adjuted for hyperglycemia. Patient is stable for transfer to telemetry. 10/23: Patient seen and examined at the bedside. Remains stable on RA, denied any pain nor any discomfort at this time. No bloody stools overnight. I reviewed his previous admissions and unfortunately he has not followed up outpatient. In the past he was recommended to have a pill endoscopy. He was seen by hematology oncologist and they recommended to continue Decadron and plan for IVIG and also consider Nplate. Some transfusion protocol was recommended by them as noted below. Platelet today is 18 so we will proceed with transfusing another 1 dose of platelets. Again I have discussed the gravity of the patient's illness with him he verbalized understanding and understands importance of outpatient hematology of also asked for financial counseling to see if he qualifies for any insurance policy that we will help him with his treatment cost. He is currently status post 6units of PRBCs, 2units Plts, 1cryo.VSS ITP with chronic bleeding related to cirrhosis Will not tolerate plt count <20 Standing order: --Transfuse 1 unit pRBC whenever hct <23 --Transfuse 1 dose of plts whenever plt <20 Will need outpatient hematology follow up for Doptelet or Promacta So far remains critically ill we will continue current management. Anticipate discharge once platelet is over 20 and stable. Overall poor prognosis. D ietitian consultation. 10/24: Patient seen and examined I discussed with extrusion die corrector: The patient is receiving additional IVIG today. Doptelet sounds are recommended I have discussed with case management to see if there are resources to provide this for the patient. Anticipate discharge in a.m. if platelets remain stable. Financial services also limited with the patient and is working on some type of financial support. This will hopefully help the patient receive care outside of the hospital. Plan discussed with the patient and he verbalized understanding 10/25: Patient plan for discharge today but developed orthostatic hypotension we will give some fluid as noted below. We will also adjust insulin for better coverage of blood sugar which is likely secondary to the steroid therapy. Lantus was increased to 30 nightly. Anticipate discharge in a.m. Home health arrangements being made. Case management notified Assessment and Plan #Acute Blood Loss Anemia 2/ #Orthostatic hypotension with autonomic dysfunction -We will give a liter bolus of fluid. -Will run fluids at normal saline at 75 cc an hour for 1 bag total -Hold discharge and reevaluate in a.m. #GI bleed- H/o AVM #Chronic ITP (Idiopathic Thrombocytopenic Purpura) - Presented with hgb level less than 2, stool occult is positive - With worsen thrombocytopenia this am - s/p 6units of PRBCs, 2units of Plts, and 1cryo - H&H stable this am, no bloody stools from overnight. No s/s of any active bleeding - Protonix gtt transitioned to PO per GI. On IV steroids - Advanced diet as tolerated - Fibrinogen less than 150, 1units of Cryo ordered - Continue to trend H&H, plts, and coags - Hematology consulted, appreciated recommendations - Transfer for Hgb less than 7 - GI signed off #Syncope-resolved - Probably due to low BP secondary to above - s/p multiple blood products - BP stable, sx resolved - Continue to trend H&H - Continue blood pressure monitor per protocol - Maintain MAP above 65 #Type 2 Diabetes Mellitus with Hyperglycemia - most likely due to IV steroids - BG check ACHS and SSI adjusted - Lantus qhs - While critically ill target blood glucose of 140-180 #Hepatitis C - Chronic, supportive care, outpatient GI follow-up. #GI/ DVT Prophylaxis - PPI- pepcid - SCDs bilateral lower extremities while in bed #Severe protein calorie malnutrition #Advance Care Planning - Disease education data, care plan, diagnoses, and prognosis were discussed with patient at the bedside. Patient is a FULL code. Patient acknowledged understanding and agreed with current care plan. The high probability of a clinically significant, sudden or life threatening deterioration of the [multiple] system(s) required my full and direct attention, intervention and personal management. The aggregate critical care time was [60] minutes. This time is in addition to time spent performing reported procedures but includes the following: [x] Data Review and interpretation [x] Patient assessment and monitoring of vital signs [x] Documentation [x] Medication orders and management Disposition Plan: Transfer to Telemetry Total Time Spent with Patient (Minutes): 60 History Interval history: Patient seen and examined no acute distress at this time however after plan for discharge he did report that he was dizzy and showed orthostatic positivity. Also blood sugar was elevated felt to be secondary to the steroids. That has since been completed.. Hospitalist Physical - Physical exam Narrative exam: General appearance: Present: no acute distress, cachectic - EENT Eyes: Present: PERRL, EOM intact ENT: hearing intact - Neck Neck: Present: normal ROM - Respiratory Respiratory effort: normal Respiratory: bilateral: CTA - Cardiovascular Rhythm: regular Heart Sounds: Present: S1 & S2 - Extremities Extremities: no ischemia, pulses intact, pulses symmetrical Peripheral Pulses: within normal limits - Abdominal General gastrointestinal: soft, non-distended, normal bowel sounds - Integumentary Integumentary: Present: clear, warm, dry - Psychiatric Psychiatric: appropriate mood/affect, cooperative - Neurologic Neurologic: CNII-XII intact, moves all extremities - Allied Health Allied health notes reviewed: nursing, case management - Constitutional Vitals: Temp Pulse Resp BP Pulse Ox 98.8 F 78 16 140/76 99 10/25/21 11:44 10/25/21 12:02 10/25/21 12:02 10/25/21 11:44 10/25/21 12:02 General appearance: Present: no acute distress, cachectic Results - Labs CBC & Chem 7: 10/25/21 04:20 10/25/21 04:20 Labs: Laboratory Last Values WBC 10.9 K/mm3 (4.5-11.0) 10/25/21 04:20 RBC 3.53 M/mm3 (3.65-5.03) L 10/25/21 04:20 Hgb 9.6 gm/dl (11.8-15.2) L 10/25/21 04:20 Hct 29.3 % (35.5-45.6) L 10/25/21 04:20 MCV 83 fl (84-94) L 10/25/21 04:20 MCH 27 pg (28-32) L 10/25/21 04:20 MCHC 33 % (32-34) 10/25/21 04:20 RDW 22.2 % (13.2-15.2) H 10/25/21 04:20 Plt Count 62 K/mm3 (140-440) L D 10/25/21 04:20 Add Manual Diff Complete 10/21/21 06:20 Total Counted 100 10/21/21 06:20 Seg Neutrophils % Artificial Flowers [place] 10/21/21 06:20 Seg Neuts % (Manual) 95.0 % (40.0-70.0) H 10/21/21 06:20 Band Neutrophils % 0 % 10/21/21 06:20 Lymphocytes % (Manual) 2.0 % (13.4-35.0) L 10/21/21 06:20 Reactive Lymphs % (Man) 0 % 10/21/21 06:20 Monocytes % (Manual) 3.0 % (0.0-7.3) 10/21/21 06:20 Eosinophils % (Manual) 0 % (0.0-4.3) 10/21/21 06:20 Basophils % (Manual) 0 % (0.0-1.8) 10/21/21 06:20 Metamyelocytes % 0 % 10/21/21 06:20 Myelocytes % 0 % 10/21/21 06:20 Promyelocytes % 0 % 10/21/21 06:20 Blast Cells % 0 % 10/21/21 06:20 Nucleated RBC % Not Reportable 10/21/21 06:20 Seg Neutrophils # Man 6.7 K/mm3 (1.8-7.7) 10/21/21 06:20 Band Neutrophils # 0.0 K/mm3 10/21/21 06:20 Lymphocytes # (Manual) 0.1 K/mm3 (1.2-5.4) L 10/21/21 06:20 Abs React Lymphs (Man) 0.0 K/mm3 10/21/21 06:20 Monocytes # (Manual) 0.2 K/mm3 (0.0-0.8) 10/21/21 06:20 Eosinophils # (Manual) 0.0 K/mm3 (0.0-0.4) 10/21/21 06:20 Basophils # (Manual) 0.0 K/mm3 (0.0-0.1) 10/21/21 06:20 Metamyelocytes # 0.0 K/mm3 10/21/21 06:20 Myelocytes # 0.0 K/mm3 10/21/21 06:20 Promyelocytes # 0.0 K/mm3 10/21/21 06:20 Blast Cells # 0.0 K/mm3 10/21/21 06:20 WBC Morphology Not Reportable 10/21/21 06:20 Hypersegmented Neuts Not Reportable 10/21/21 06:20 Hyposegmented Neuts Not Reportable 10/21/21 06:20 Hypogranular Neuts Not Reportable 10/21/21 06:20 Smudge Cells Not Reportable 10/21/21 06:20 Toxic Granulation Not Reportable 10/21/21 06:20 Toxic Vacuolation Not Reportable 10/21/21 06:20 Dohle Bodies Not Reportable 10/21/21 06:20 Pelger-Huet Anomaly Not Reportable 10/21/21 06:20 Katia Rods Not Reportable 10/21/21 06:20 Platelet Estimate Consistent w auto 10/21/21 06:20 Clumped Platelets Not Reportable 10/21/21 06:20 Plt Clumps, EDTA Not Reportable 10/21/21 06:20 Large Platelets Not Reportable 10/21/21 06:20 Giant Platelets Not Reportable 10/21/21 06:20 Platelet Satelliting Not Reportable 10/21/21 06:20 Plt Morphology Comment Not Reportable 10/21/21 06:20 RBC Morphology Not Reportable 10/21/21 06:20 Dimorphic RBCs Not Reportable 10/21/21 06:20 Polychromasia Few 10/21/21 06:20 Hypochromasia 1+ 10/21/21 06:20 Poikilocytosis Not Reportable 10/21/21 06:20 Anisocytosis 1+ 10/21/21 06:20 Microcytosis Not Reportable 10/21/21 06:20 Macrocytosis Not Reportable 10/21/21 06:20 Spherocytes Not Reportable 10/21/21 06:20 Pappenheimer Bodies Not Reportable 10/21/21 06:20 Sickle Cells Not Reportable 10/21/21 06:20 Target Cells Few 10/21/21 06:20 Tear Drop Cells Not Reportable 10/21/21 06:20 Ovalocytes Not Reportable 10/21/21 06:20 Helmet Cells Not Reportable 10/21/21 06:20 Suarez-Walls Bodies Not Reportable 10/21/21 06:20 [place] Rings Not Reportable 10/21/21 06:20 Luke Cells Not Reportable 10/21/21 06:20 Bite Cells Not Reportable 10/21/21 06:20 Crenated Cell Not Reportable 10/21/21 06:20 Elliptocytes Not Reportable 10/21/21 06:20 Acanthocytes (Spur) Not Reportable 10/21/21 06:20 Rouleaux Not Reportable 10/21/21 06:20 Hemoglobin C Crystals Not Reportable 10/21/21 06:20 Schistocytes Not Reportable 10/21/21 06:20 Malaria parasites Not Reportable 10/21/21 06:20 Percent Retic 3.37 % (0.78-2.58) H 10/21/21 10:46 Jl Bodies Not Reportable 10/21/21 06:20 Hem Pathologist Commnt No 10/21/21 06:20 PT 15.2 Sec. (12.2-14.9) H 10/23/21 13:25 INR 1.08 (0.87-1.13) 10/23/21 13:25 APTT 25.6 Sec. (24.2-36.6) 10/23/21 13:25 Fibrinogen 191 mg/dl (211-480) L 10/23/21 13:25 Sodium 134 mmol/L (137-145) L 10/25/21 04:20 Potassium 4.2 mmol/L (3.6-5.0) 10/25/21 04:20 Chloride 100.3 mmol/L (98-107) 10/25/21 04:20 Carbon Dioxide 29 mmol/L (22-30) 10/25/21 04:20 Anion Gap 9 mmol/L 10/25/21 04:20 BUN 19 mg/dL (9-20) 10/25/21 04:20 Creatinine 0.7 mg/dL (0.8-1.3) L 10/25/21 04:20 Estimated GFR > 60 ml/min 10/25/21 04:20 BUN/Creatinine Ratio 27 % 10/25/21 04:20 Glucose 299 mg/dL (75-100) H 10/25/21 04:20 POC Glucose 336 mg/dL (70-105) H 10/25/21 02:05 Calcium 9.3 mg/dL (8.4-10.2) 10/25/21 04:20 Total Bilirubin 1.30 mg/dL (0.1-1.2) H 10/23/21 13:50 AST 34 units/L (5-40) 10/23/21 13:50 ALT 71 units/L (7-56) H 10/23/21 13:50 Alkaline Phosphatase 69 units/L (35-129) 10/23/21 13:50 Lactate Dehydrogenase 401 units/L (91-180) H 10/21/21 10:46 Total Protein 5.2 g/dL (6.3-8.2) L 10/23/21 13:50 Albumin 3.6 g/dL (3.9-5) L 10/23/21 13:50 Albumin/Globulin Ratio 2.3 % 10/23/21 13:50 Urine Color Yellow (Yellow) 10/20/21 22:52 Urine Turbidity Slightly cloudy (Clear) 10/20/21 22:52 Urine pH 5.0 (5.0-7.0) 10/20/21 22:52 Ur Specific [place] 1.020 (1.003-1.030) 10/20/21 22:52 Urine Protein 30 mg/dl mg/dL (Negative) 10/20/21 22:52 Urine Glucose (UA) Negative mg/dL (Negative) 10/20/21 22:52 Urine Ketones Trace mg/dL (Negative) 10/20/21 22:52 Urine Blood Negative (Negative) 10/20/21 22:52 Urine Nitrite Negative (Negative) 10/20/21 22:52 Ur Reducing Substances Not Reportable 10/20/21 22:52 Urine Bilirubin Negative (Negative) 10/20/21 22:52 Urine Ictotest Not Reportable 10/20/21 22:52 Urine Urobilinogen < 2.0 mg/dL (<2.0) 10/20/21 22:52 Ur Leukocyte Esterase Negative (Negative) 10/20/21 22:52 Urine WBC (Auto) < 1.0 /HPF (0.0-6.0) 10/20/21 22:52 Urine RBC (Auto) < 1.0 /HPF (0.0-6.0) 10/20/21 22:52 Urine Mucus Few /HPF 10/20/21 22:52 Cardiolipid IgG Ab <2.0 GPL-U/mL (<20.0) 10/22/21 06:10 Cardiolipid IgA Ab <2.0 APL-U/mL (<20.0) 10/22/21 06:10 Cardiolipid IgM Ab <2.0 MPL-U/mL (<20.0) 10/22/21 06:10 Blood Type A POSITIVE 10/24/21 03:24 Antibody Screen Positive 10/20/21 10:22 Antibody Identification Anti-E 10/20/21 10:22 Direct Antiglob Test Negative 10/22/21 06:10 SLIM, Poly Interpret Negative 10/22/21 06:10 Crossmatch See Detail 10/20/21 10:22 Parker/IV: Voiding Method Urinal Active Medications - Current Medications Current Medications: Generic Name Dose Route Start Last Admin Trade Name Freq PRN Reason Stop Dose Admin Acetaminophen 650 mg 10/20/21 15:00 Acetaminophen 325 Mg Tab PO Q6H PRN Pain MILD(1-3)/Fever >100.5/DURÁN Albuterol 2.5 mg 10/20/21 15:00 Albuterol 2.5 Mg/3 Ml Nebu IH Q3HRT PRN Shortness Of Breath Dextrose 50 ml 10/21/21 08:00 Dextrose 50% In Water (25gm) 50 Ml Syringe IV Q30MIN PRN Hypoglycemia Protocol Hydromorphone HCl 0.5 mg 10/20/21 15:00 Hydromorphone 0.5 Mg/0.5 Ml Inj IV Q23H PRN Pain , Severe (7-10) Ferric Sodium Gluconate 110 mls @ 100 mls/hr 10/21/21 11:00 10/25/21 11:52 Complex 125 mg/ Sodium IV 10/28/21 11:05 Infused Chloride DAILY LUCIAN Infusion Sodium Chloride 1,000 mls @ 75 mls/hr 10/25/21 20:00 Nacl 0.9% 1000 Ml IV 10/26/21 09:19 DIRECT LUCIAN Insulin Glargine 30 units 10/25/21 15:12 Insulin Glargine 100 Units/Ml SUB-Q QHS LUCIAN Insulin Human Lispro 0 unit 10/21/21 11:30 10/25/21 12:31 Insulin Lispro 100 Unit/Ml SUB-Q 8 unit ACHS LUCIAN Administration Protocol Oxycodone/Acetaminophen 1 tab 10/20/21 15:00 Oxycodone /Acetaminophen 5-325mg Tab PO Q16H PRN Pain, Moderate (4-6) Pantoprazole Sodium 40 mg 10/22/21 07:30 10/25/21 09:45 Pantoprazole 40 Mg Tab PO 40 mg QDAC LUCIAN Administration Sodium Chloride 10 ml 10/20/21 15:00 10/25/21 09:45 Sodium Chloride 0.9% 10 Ml Flush Syringe IV 10 ml BID LUCIAN Administration Sodium Chloride 10 ml 10/20/21 15:00 Sodium Chloride 0.9% 10 Ml Flush Syringe IV PRN PRN LINE FLUSH Nutrition/Malnutrition Assess - Dietary Evaluation Nutrition/Malnutrition Findings: Nutrition Notes Start: 10/21/21 15:21 Freq: Status: Active Protocol: Document 10/24/21 12:35 ROSEANNE (Rec: 10/24/21 13:11 ROSEANNE [id number]) Nutrition Notes Need for Assessment generated from: Low BMI Initial or Follow up Assessment Current Diagnosis Diabetes,Malnutrition Other Pertinent Diagnosis Anemia, ITP Chronic Bleeding S /Cirrhosis, Hepatitis C, Syncope, CHF, OA... Current Diet GI Soft Diet (since B 10/24). Labs/Tests 10/24: Crea 0.5. Pertinent Medications 10/24: Ferric Sodium Gluconate Complex 125mg, Lantus 20U, others nutritionally unremarkable. Height 5 ft 6 in Weight 45.7 kg [facility] Body Weight (kg) 64.54 BMI 16.2 Weight change and time frame Discrepancy of 10.969 Kg body weight loss reported in 3 days . Weight Status Underweight Subjective/Other Information RD consult for Low BMI assessment. Pt diet changed to Clear Liquids, to Full Liquids, and finally advanced to GI Soft, no reports available on Pt's PO intake at the time, will assess at F/U. Pt is on Room Air, O2 saturation @ 99%, according to Physical Assessment History notes. Pt has missing teeth, according to Physical Assessment History notes. Pt does not present diarrhea with hemoccult positive any longer, according to Progress notes. Pt is s/p transfussion of 6U PRBCs, 2U Plts, and 1 Cryo, according to Progress notes. Pt's Low BMI seems to correspond to a natural body composition, and not related to a sudden loss of body weight nor chronic malnutrition, since no signs of concern were mentioned in the Physical Assessment History or the Progress notes. Percent of energy/protein needs met: Prescribed GI Soft Diet provides for energy/protein needs (2,000 Kcal/82 g) during LOS. Burn Absent Trauma Absent GI Symptoms Other Food Allergy No Skin Integrity/Comment Assessment WNL. Minimum of two criteria No Fluid Accumulation N/A Reduced Spoilage Worker Strength N/A (non-severe) Protein-Calorie Malnutrition N\A #1 Nutrition Diagnosis Underweight Comments: Pt's Low BMI seems to correspond to a natural body composition, and not related to a sudden loss of body weight nor chronic malnutrition, since no signs of concern were mentioned in the Physical Assessment History or the Progress notes. Etiology Possibly associated with Hepatitis C/Cirrhosis. As Evidenced by Signs and Symptoms BMI: 16.2 Kg/m2. Is patient on ventilator? No Is Patient Ambulatory and/or Out of Bed Yes REE-([place]-St. Jeor-ambulatory/OOB) [ 1527.175 [id number]] Kcal/Kg value to use for calculation 36 Approximate Energy Requirements Using 1645 kcal/Kg Calculation Used for Recommendations Kcal/kg Additional Notes Protein: 1-1.2 g/Kg ABW; 46-55 g/day. Fluids: 1 ml/Kcal, or as per MD. Nutrition Intervention Change Diet Order: Continue GI Soft Diet as tolerated, advance to Consistent Carbohydrates as tolerated. Goal #1 Adjust the dietary intervention to better serve Pt's needs and clinical conditions during LOS. Follow-Up By: 10/31/21 Additional Comments Continue monitoring food tolerance, %PO intake of meals , dietary supplements, and BM.
[2021-10-25] MEDS ORDERED: SODIUM CHLORIDE 0.9% 1000 ML 1,000 ML IV SCH (20:00)
--- NOTE | 2021-10-25 22:50 | Electrocardiograph Report ---
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
[2021-10-26 08:23] VITALS: BP 133/59
--- NOTE | 2021-10-26 08:59 | Discharge Summary ---
Providers - Providers Date of Admission: 10/20/21 16:06 Attending physician: GOMEZ ARAYA MD 10/20/21 14:13 Consult to Physician [CONS] Urgent Comment: Consulting Provider: EDWIGE BLACK Physician Instructions: Reason For Exam: GI bleed 10/21/21 07:50 Consult to Physician [CONS] Routine Comment: CALL OFFICE/MARCUS Consulting Provider: MILLI JON Physician Instructions: Reason For Exam: Severe Anemia/ Trombocytopenia. Hx- ITP 10/21/21 08:00 Consult to Dietitian/Nutrition [CONS] Routine Physician Instructions: Reason For Exam: Reason for Consult: Diet education 10/24/21 08:51 Physical Therapy Evaluation and Treat [CONS] Routine Comment: Reason For Exam: PT/OT evaluate patients mobility status 10/24/21 08:53 Occupational Therapy Evaluate and Treat [CONS] Routine Comment: Reason For Exam: OT eval Primary care physician: JOINT CREASER Hospitalization Reason for admission: symptomatic anemia Condition: Good Hospital course: This is a 66-year-old male with known past medical history of DM, OA, symptomatic snemia, ITP, colonic AV Malformation, Nicotine dependence, HCV, GERD, CHF, PSA, and medical noncompliance admitted for severe acute blood loss anemia probably secondary to GI bleed versus ITP Hospital Course to Date 10/21: Patient with active bleeding, large bloody stools and oozing from CVC site this am. Received 4units of PRBCs, worsen plt counts this am, H&H and vital site are stable. On IV steroids, continue to trend H&H and plts, check coags and fibrinogen. Hematology consulted. GI is also following, recommendations noted. Continue protonix gtt, patient switched to clear liquid diet. Hyperglycemia is most likely due to IV steroids, SSI initiated. 10/22: Remains stable on RA, denied any pain nor any discomfort at this time. No bloody stools overnight. s/p 6units of PRBCs, 2units of Plts, and 1cryo. H&H and vital signs stable this am, Protonix gtt transitioned to PO per GI. Hematology recommendations noted. Fibrinogen less than 150 this am, 1unit of Cryo ordered. Will continue to trend H&H, plts, and coags. Advance diet as tolerated. SSI and Lantus adjuted for hyperglycemia. Patient is stable for transfer to telemetry. 8/17: Patient seen and examined at the bedside. Remains stable on RA, denied any pain nor any discomfort at this time. No bloody stools overnight. I reviewed his previous admissions and unfortunately he has not followed up outpatient. In the past he was recommended to have a pill endoscopy. He was seen by hematology oncologist and they recommended to continue Decadron and plan for IVIG and also consider Nplate. Some transfusion protocol was recommended by them as noted below. Platelet today is 18 so we will proceed with transfusing another 1 dose of platelets. Again I have discussed the gravity of the patient's illness with him he verbalized understanding and understands importance of outpatient hematology of also asked for financial counseling to see if he qualifies for any insurance policy that we will help him with his treatment cost. He is currently status post 6units of PRBCs, 2units Plts, 1cryo.VSS ITP with chronic bleeding related to cirrhosis Will not tolerate plt count <20 Standing order: --Transfuse 1 unit pRBC whenever hct <23 --Transfuse 1 dose of plts whenever plt <20 Will need outpatient hematology follow up for Doptelet or Promacta So far remains critically ill we will continue current management. Anticipate discharge once platelet is over 20 and stable. Overall poor prognosis. Dietitian consultation. 10/24: Patient seen and examined I discussed with nutrition club ambassador: The patient is receiving additional IVIG today. Doptelet sounds are recommended I have discussed with case management to see if there are resources to provide this for the patient. Anticipate discharge in a.m. if platelets remain stable. Financial services also limited with the patient and is working on some type of financial support. This will hopefully help the patient receive care outside of the hospital. Plan discussed with the patient and he verbalized understanding 10/25: Patient plan for discharge today but developed orthostatic hypotension we will give some fluid as noted below. We will also adjust insulin for better coverage of blood sugar which is likely secondary to the steroid therapy. Lantus was increased to 30 nightly. Anticipate discharge in a.m. Home health arrangements being made. Case management notified 10/26: Patient seen and examined still with mild orthostatic but improving. No further dizziness reported to me. He did complain of chest pain which she says started yesterday but is reproducible. No associated orthopnea or shortness of breath. No transfer of the pain. Assessment and Plan #Acute Blood Loss Anemia 2/2 #Orthostatic hypotension with autonomic dysfunction -We will give a liter bolus of fluid. -Will run fluids at normal saline at 75 cc an hour for 1 bag total -Hold discharge and reevaluate in a.m. #GI bleed- H/o AVM #Chronic ITP (Idiopathic Thrombocytopenic Purpura) - Presented with hgb level less than 2, stool occult is positive - With worsen thrombocytopenia this am - s/p 6units of PRBCs, 2units of Plts, and 1cryo - H&H stable this am, no bloody stools from overnight. No s/s of any active bleeding - Protonix gtt transitioned to PO per GI. On IV steroids - Advanced diet as tolerated - Fibrinogen less than 150, 1units of Cryo ordered - Continue to trend H&H, plts, and coags - Hematology consulted, appreciated recommendations - Transfer for Hgb less than 7 - GI signed off #Autonomic Dysfunction with syncope-resolved - Probably due to low BP secondary to above - s/p multiple blood products - BP stable, sx resolved - Continue to trend H&H - Continue blood pressure monitor per protocol - Maintain MAP above 65 #Type 2 Diabetes Mellitus with Hyperglycemia - most likely due to IV steroids - BG check ACHS and SSI adjusted - Lantus qhs - While critically ill target blood glucose of 140-180 #Hepatitis C - Chronic, supportive care, outpatient GI follow-up. #GI/ DVT Prophylaxis - PPI- pepcid - SCDs bilateral lower extremities while in bed #Severe protein calorie malnutrition #Advance Care Planning - Disease education data, care plan, diagnoses, and prognosis were discussed with patient at the bedside. Patient is a FULL code. Patient acknowledged understanding and agreed with current care plan. Disposition: HOME / SELF CARE / HOMELESS Final Discharge Diagnosis (Prints w/discharge instructions): #Acute Blood Loss Anemia 2/2. #Orthostatic hypotension with autonomic dysfunction. #GI bleed- H/o AVM. #Chronic ITP (Idiopathic Thrombocytopenic Purpura) Time spent for discharge: 35 mins Core Measure Documentation - Palliative Care Palliative Care/ Comfort Measures: Not Applicable - Core Measures Any of the following diagnoses?: none Exam - Physical Exam Narrative exam: General appearance: Present: no acute distress, cachectic - EENT Eyes: Present: PERRL, EOM intact ENT: hearing intact - Neck Neck: Present: normal ROM - Respiratory Respiratory effort: normal Respiratory: bilateral: CTA - Cardiovascular Rhythm: regular Heart Sounds: Present: S1 & S2 - Extremities Extremities: no ischemia, pulses intact, pulses symmetrical Peripheral Pulses: within normal limits - Abdominal General gastrointestinal: soft, non-distended, normal bowel sounds - Integumentary Integumentary: Present: clear, warm, dry - Psychiatric Psychiatric: appropriate mood/affect, cooperative - Neurologic Neurologic: CNII-XII intact, moves all extremities - Allied Health Allied health notes reviewed: nursing, case management - Constitutional Vitals: Temp Pulse Resp BP Pulse Ox 98.8 F 89 19 133/59 98 10/26/21 03:46 10/26/21 08:18 10/26/21 03:46 10/26/21 08:18 10/26/21 03:46 Plan Activity: advance as tolerated, fall precautions Diet: diabetic Special Instructions: record daily weights, record daily BP diary, record blood sugar diary Follow up with: EVENS WOODS MD [Staff Physician] - 7 Days DAREN RIVAS MD [Staff Physician] - 7 Days Prescriptions: Avatrombopag Maleate [Doptelet] 20 mg PO DAILY #30 tab metFORMIN [Glucophage] 850 mg PO BID #60 tab
[2021-10-26] MEDS ORDERED: traMADol 50 MG TAB PO ONE (09:00)
[2021-10-26] MEDS ORDERED: SODIUM CHLORIDE 0.9% 500 ML 500 ML IV ONE (09:00)
[2021-10-26] MEDS ORDERED: MIDODRINE 5 MG TAB PO ONE (09:00)
[2021-10-26] MEDS: INSULIN LISPRO 100 UNIT/ML SUB-Q SCH (09:02)
[2021-10-26] MEDS: PANTOPRAZOLE 40 MG TAB PO SCH (09:15)
[2021-10-26 10:31] LABS: Chol/HDL Ratio 2.45 %
[2021-10-26] MEDS: SODIUM FERRIC GLUCON/SUCRO 125 MG in SODIUM CHLORIDE 0.9% 100 ML IV SCH (10:39)
== END 2021-10-26 16:22 | disposition home or self-care (01) | DRG 432 ==
LOC: ED 08:47 → CC1 16:06 → 4A 10-22 22:32
PROVIDERS: ADMIT Internal Medicine; ATTEND Internal Medicine
PROC: 30233N1 Transfusion of Nonautologous Red Blood Cells into Peripheral Vein, Percutaneous Approach (ICD-10-PCS; 2021-10-20)
PROC: 06HY33Z Insertion of Infusion Device into Lower Vein, Percutaneous Approach (ICD-10-PCS; 2021-10-20)
PROC: B54BZZA Ultrasonography of Right Lower Extremity Veins, Guidance (ICD-10-PCS; 2021-10-20)
PROC: 30233M1 Transfusion of Nonautologous Plasma Cryoprecipitate into Peripheral Vein, Percutaneous Approach (ICD-10-PCS; principal; 2021-10-21)
DX: K74.60 Unspecified cirrhosis of liver (principal); E43 Unspecified severe protein-calorie malnutrition; K92.2 Gastrointestinal hemorrhage, unspecified; D62 Acute posthemorrhagic anemia; D69.3 Immune thrombocytopenic purpura; Z68.1 Body mass index [BMI] 19.9 or less, adult; I11.0 Hypertensive heart disease with heart failure; I50.9 Heart failure, unspecified; M19.90 Unspecified osteoarthritis, unspecified site; K21.9 Gastro-esophageal reflux disease without esophagitis; F17.200 Nicotine dependence, unspecified, uncomplicated; B19.20 Unspecified viral hepatitis C without hepatic coma; E11.65 Type 2 diabetes mellitus with hyperglycemia; G90.8 Other disorders of autonomic nervous system; I95.1 Orthostatic hypotension; Z79.84 Long term (current) use of oral hypoglycemic drugs; Z83.3 Family history of diabetes mellitus; Z82.49 Family history of ischemic heart disease and other diseases of the circulatory system; Z91.19 Patient's noncompliance with other medical treatment and regimen
CPT/HCPCS: 36415; 76700; 80048; 80053; 80061; 81001; 82271; 82550; 82553; 82962; 83615; 84484; 85007; 85014; 85018; 85025; 85027; 85045; 85049; 85384; 85610; 85730; 86147; 86850; 86870; 86880; 86900; 86901; 93005; 94640; 99406; G0378; J2501; J3490; Q9967; C9113; J1100; J1561; J1815; J2354; J2916; J2920; J7030; J7040; P9012; P9016; P9035

== ENCOUNTER 2021-10-28 09:37 | Emergency (ER) | payer SELFPAY ==
--- NOTE | 2021-10-28 10:04 | Emergency Department Report ---
ED Chest Pain HPI - General Chief Complaint: Chest Pain Stated Complaint: CHEST PAIN Time Seen by Provider: 10/28/21 09:50 Source: patient, EMS, old records reviewed Mode of arrival: Stretcher Limitations: No Limitations - History of Present Illness Initial Comments: 66-year-old male with known past medical history of DM, OA, symptomatic snemia, chronic ITP, chronic bleeding related to cirrhosis, colonic AV Malformation, Nicotine dependence, HCV, GERD, CHF, PSA, and medical noncompliance presents to the hospital with complaint of persistent headache, weakness, unsteady gait, and aching chest pain which has been persistent since recent hospitalization. Patient was recently admitted here October 20 until the for anemia, thrombocytopenia, and probable GI bleed secondary to AVM. During admission patient required transfusion of 6 units of PRBC, 1 unit of platelets, 1 unit cryoprecipitate. Patient was also noted to have orthostatic hypotension secondary to autonomic dysfunction. Patient did complain of chest pain prior to discharge but it was thought to be reproducible muscle skeletal in origin. Patient states his symptoms have not worsened since discharge but they just have not improved. He has been unable to fill his recently prescribed metformin and Doptelet because he is waiting that he gets paid the first of the month. As per chart review patient was actually discharged on October 26 but sat in the lobby until October 27 before going back home to skilled nursing. normal stress test here 04/2021 -: Sudden Onset: during rest Pain Location: substernal Pain Radiation: none Severity: moderate Severity scale (0 -10): 8 Quality: aching Consistency: intermittent Improves With: nothing Worsens With: nothing Context: other re: dyspnea. denies: nausea, vomting, diaphoresis Other Symptoms: denies: cough, fever, rash Treatments Prior to Arrival: none - Related Data Previous Rx's Medication Instructions Recorded Last Taken Type Avatrombopag Maleate [Doptelet] 20 mg PO DAILY #30 tab 10/26/21 Unknown Rx metFORMIN [Glucophage] 850 mg PO BID #60 tab 10/26/21 Unknown Rx Allergies Allergy/AdvReac Type Severity Reaction Status Date / Time No Known Allergies Allergy Verified 10/28/21 09:43 Heart Score - HEART Score History: Slightly suspicious EKG: Normal Age: > 65 Risk factors: 1-2 risk factors Troponin: < normal limit HEART Score: 3 - EKG Read Time Time EKG Completed: 10:00 EKG Read Time: 01:05 ED Review of Systems ROS: Stated complaint: CHEST PAIN Other details as noted in HPI ED Past Medical Hx - Past Medical History Hx Hypertension: Yes Hx Congestive Heart Failure: Yes Hx Diabetes: Yes Hx GERD: Yes Hx Arthritis: Yes Additional medical history: ANEMIA. Proximal gut and multiple colon AVM's (endoscopy/colonoscopy March 2017). hep C. Pancytopenia. Recurrent anemia requiring blood transfusion. ITP - Surgical History Hx Coronary Stent: No Hx Pacemaker: No Hx Internal Defibrillator: No - Social History Smoking Status: Current Every Day Smoker Substance Use Type: None - Medications Home Medications: Home Medications Medication Instructions Recorded Confirmed Last Taken Type Avatrombopag Maleate [Doptelet] 20 mg PO DAILY #30 tab 10/26/21 Unknown Rx metFORMIN [Glucophage] 850 mg PO BID #60 tab 10/26/21 Unknown Rx ED Physical Exam - General Limitations: No Limitations - Other Other exam information: General: No acute distress Head: Atraumatic Eyes: normal appearance ENT: Moist mucous membranes Neck: Normal appearance, no midline tenderness Chest: Clear to auscultation bilaterally CV: Regular rate and rhythm Abdomen: Soft, normal bowel sounds, nontender, nondistended, no rebound or guarding Back: Normal inspection Extremity: Normal inspection, full range of motion Neuro: Alert O x 3, no facial asymmetry, speech clear, equal handgrip and foot dorsiflexion. Sensation grossly intact Psych: Appropriate behavior Skin: No rash ED Course Vital Signs 10/28/21 10/28/21 10/28/21 09:41 09:51 12:12 Temperature 98.3 F 98.3 F Pulse Rate 103 H 92 H 82 Respiratory 14 20 20 Rate Blood Pressure 150/71 Blood Pressure 135/79 150/71 152/69 [Left] O2 Sat by Pulse 99 98 98 Oximetry 10/28/21 14:26 Temperature Pulse Rate 88 Respiratory 20 Rate Blood Pressure Blood Pressure 137/66 [Left] O2 Sat by Pulse 98 Oximetry ELIUD score - Eliud Score Age > 65: (0) No Aspirin use within the Past 7 Days: (0) No 3 or more CAD Risk Factors: (0) No 2 or more Angina events in past 24 hrs: (0) No Known CAD with more than 50% Stenosis: (0) No Elevated Cardiac Markers: (0) No ST Deviation Greater than 0.5mm: (0) No ELIUD Score: 0 ED Medical Decision Making - Lab Data Result diagrams: 10/28/21 10:39 10/28/21 10:39 Lab Results 10/28/21 10/28/21 10/28/21 Range/Units 10:39 10:39 10:39 WBC 7.7 (4.5-11.0) K/mm3 RBC 3.55 L (3.65-5.03) M/mm3 Hgb 9.7 L (11.8-15.2) gm/dl Hct 31.2 L (35.5-45.6) % MCV 88 (84-94) fl MCH 28 (28-32) pg MCHC 31 L (32-34) % RDW 23.0 H (13.2-15.2) % Plt Count 270 (140-440) K/mm3 Add Manual Diff Complete Total Counted 100 Seg Neuts % (Manual) 85.0 H (40.0-70.0) % Band Neutrophils % 1.0 % Lymphocytes % (Manual) 5.0 L (13.4-35.0) % Reactive Lymphs % (Man) 2.0 % Monocytes % (Manual) 5.0 (0.0-7.3) % Eosinophils % (Manual) 2.0 (0.0-4.3) % Basophils % (Manual) 0 (0.0-1.8) % Metamyelocytes % 0 % Myelocytes % 0 % Promyelocytes % 0 % Blast Cells % 0 % Nucleated RBC % Not Reportable Seg Neutrophils # Man 6.5 (1.8-7.7) K/mm3 Band Neutrophils # 0.1 K/mm3 Lymphocytes # (Manual) 0.4 L (1.2-5.4) K/mm3 Abs React Lymphs (Man) 0.2 K/mm3 Monocytes # (Manual) 0.4 (0.0-0.8) K/mm3 Eosinophils # (Manual) 0.2 (0.0-0.4) K/mm3 Basophils # (Manual) 0.0 (0.0-0.1) K/mm3 Metamyelocytes # 0.0 K/mm3 Myelocytes # 0.0 K/mm3 Promyelocytes # 0.0 K/mm3 Blast Cells # 0.0 K/mm3 WBC Morphology Not Reportable Hypersegmented Neuts Not Reportable Hyposegmented Neuts Not Reportable Hypogranular Neuts Not Reportable Smudge Cells Not Reportable Toxic Granulation Not Reportable Toxic Vacuolation Not Reportable Dohle Bodies Not Reportable Pelger-Huet Anomaly Not Reportable Katia Rods Not Reportable Platelet Estimate Consistent w auto Clumped Platelets Not Reportable Plt Clumps, EDTA Not Reportable Large Platelets Not Reportable Giant Platelets Not Reportable Platelet Satelliting Not Reportable Plt Morphology Comment Not Reportable RBC Morphology Not Reportable Dimorphic RBCs Not Reportable Polychromasia Not Reportable Hypochromasia Not Reportable Poikilocytosis Not Reportable Anisocytosis 2+ Microcytosis Not Reportable Macrocytosis Not Reportable Spherocytes Not Reportable Pappenheimer Bodies Not Reportable Sickle Cells Not Reportable Target Cells Not Reportable Tear Drop Cells Not Reportable Ovalocytes Not Reportable Helmet Cells Not Reportable [place] Bodies Not Reportable [place] Rings Not Reportable [place] Cells Not Reportable Bite Cells Not Reportable Crenated Cell Not Reportable Elliptocytes Not Reportable Acanthocytes (Spur) Not Reportable Rouleaux Not Reportable Hemoglobin C Crystals Not Reportable Schistocytes Not Reportable Malaria parasites Not Reportable Jl Bodies Not Reportable Hem Pathologist Commnt No PT 15.0 H (12.2-14.9) Sec. INR 1.06 (0.87-1.13) APTT 33.2 (24.2-36.6) Sec. Sodium 135 L (137-145) mmol/L Potassium 3.7 (3.6-5.0) mmol/L Chloride 98.4 (98-107) mmol/L Carbon Dioxide 30 (22-30) mmol/L Anion Gap 10 mmol/L BUN 11 (9-20) mg/dL Creatinine 0.7 L (0.8-1.3) mg/dL Estimated GFR > 60 ml/min BUN/Creatinine Ratio 16 % Glucose 153 H (75-100) mg/dL Calcium 8.3 L (8.4-10.2) mg/dL Total Bilirubin 1.30 H (0.1-1.2) mg/dL AST 20 (5-40) units/L ALT 26 (7-56) units/L Alkaline Phosphatase 73 (35-129) units/L Troponin T 0.043 H (0.00-0.029) ng/mL Total Protein 5.0 L (6.3-8.2) g/dL Albumin 3.1 L (3.9-5) g/dL Albumin/Globulin Ratio 1.6 % Urine Color (Yellow) Urine Turbidity (Clear) Specific Philipp (Man) (1.003-1.030) Ur Protein (Man) (Negative) mg/dL Ur Ketones (Man) (Negative) Urine Bilirubin (Man) (Negative) Urine WBC (Auto) (0.0-6.0) /HPF Urine RBC (Auto) (0.0-6.0) /HPF Urine RBC (Manual) (Negative) 10/28/21 Range/Units 13:21 WBC (4.5-11.0) K/mm3 RBC (3.65-5.03) M/mm3 Hgb (11.8-15.2) gm/dl Hct (35.5-45.6) % MCV (84-94) fl MCH (28-32) pg MCHC (32-34) % RDW (13.2-15.2) % Plt Count (140-440) K/mm3 Add Manual Diff Total Counted Seg Neuts % (Manual) (40.0-70.0) % Band Neutrophils % % Lymphocytes % (Manual) (13.4-35.0) % Reactive Lymphs % (Man) % Monocytes % (Manual) (0.0-7.3) % Eosinophils % (Manual) (0.0-4.3) % Basophils % (Manual) (0.0-1.8) % Metamyelocytes % % Myelocytes % % Promyelocytes % % Blast Cells % % Nucleated RBC % Seg Neutrophils # Man (1.8-7.7) K/mm3 Band Neutrophils # K/mm3 Lymphocytes # (Manual) (1.2-5.4) K/mm3 Abs React Lymphs (Man) K/mm3 Monocytes # (Manual) (0.0-0.8) K/mm3 Eosinophils # (Manual) (0.0-0.4) K/mm3 Basophils # (Manual) (0.0-0.1) K/mm3 Metamyelocytes # K/mm3 Myelocytes # K/mm3 Promyelocytes # K/mm3 Blast Cells # K/mm3 WBC Morphology Hypersegmented Neuts Hyposegmented Neuts Hypogranular Neuts Smudge Cells Toxic Granulation Toxic Vacuolation Dohle Bodies Pelger-Huet Anomaly Katia Rods Platelet Estimate Clumped Platelets Plt Clumps, EDTA Large Platelets Giant Platelets Platelet Satelliting Plt Morphology Comment RBC Morphology Dimorphic RBCs Polychromasia Hypochromasia Poikilocytosis Anisocytosis Microcytosis Macrocytosis Spherocytes Pappenheimer Bodies Sickle Cells Target Cells Tear Drop Cells Ovalocytes Helmet Cells [place] Bodies [place] Rings [place] Cells Bite Cells Crenated Cell Elliptocytes Acanthocytes (Spur) Rouleaux Hemoglobin C Crystals Schistocytes Malaria parasites Jl Bodies Hem Pathologist Commnt PT (12.2-14.9) Sec. INR (0.87-1.13) APTT (24.2-36.6) Sec. Sodium (137-145) mmol/L Potassium (3.6-5.0) mmol/L Chloride (98-107) mmol/L Carbon Dioxide (22-30) mmol/L Anion Gap mmol/L BUN (9-20) mg/dL Creatinine (0.8-1.3) mg/dL Estimated GFR ml/min BUN/Creatinine Ratio % Glucose (75-100) mg/dL Calcium (8.4-10.2) mg/dL Total Bilirubin (0.1-1.2) mg/dL AST (5-40) units/L ALT (7-56) units/L Alkaline Phosphatase (35-129) units/L Troponin T (0.00-0.029) ng/mL Total Protein (6.3-8.2) g/dL Albumin (3.9-5) g/dL Albumin/Globulin Ratio % Urine Color Yellow (Yellow) Urine Turbidity Clear (Clear) Specific Philipp (Man) 1.015 (1.003-1.030) Ur Protein (Man) Negative (Negative) mg/dL Ur Ketones (Man) Neg (Negative) Urine Bilirubin (Man) Neg (Negative) Urine WBC (Auto) 1.0 (0.0-6.0) /HPF Urine RBC (Auto) < 1.0 (0.0-6.0) /HPF Urine RBC (Manual) Neg (Negative) - EKG Data -: EKG Interpreted by De EKG shows normal: sinus rhythm, ST-T waves (no stemi) Rate: normal - EKG Data When compared to previous EKG there are: no significant change - Radiology Data Radiology results: report reviewed CT head/brain wo con INDICATION: headache dizzy. TECHNIQUE: Routine CT head. All CT scans at this location are performed using C T dose reduction for ALARA by means of automated exposure control. COMPARISON: None. FINDINGS: Intracranial: Fiore-white matter differentiation is maintained. No intracranial hemorrhage. No extra axial collection. No hydrocephalus. No herniation. Sinuses: Paranasal sinuses and mastoid air cells are essentially clear. Orbits: Globes are intact. Calvarium: No acute fracture. IMPRESSION: 1. No acute intracranial abnormality. CHEST 1 VIEW 10/28/2021 10:13 AM INDICATION / CLINICAL INFORMATION: Chest Pain. COMPARISON: 04/13/2021 FINDINGS: SUPPORT DEVICES: None. HEART / MEDIASTINUM: Stable mild cardiomegaly LUNGS / PLEURA: Bibasilar airspace opacities have resolved since the previous exam. The lungs are generally clear. No pneumothorax. ADDITIONAL FINDINGS: No significant additional findings. IMPRESSION: 1. Stable mild cardiomegaly. Lungs clear. - Medical Decision Making 66-year male presents to the hospital complaint of atypical chest pain, headache, and persistent weakness that is unchanged his recent discharge from the hospital. Patient was discharged on multiple medications but has not yet filled them and does not plan to fill them to the first of the month when his in surance is active. At this time ED visit reveals unchanged EKG, mild troponin elevation which is stable compared to recent admission levels, much improved CBC results compared to recent admission, unremarkable chemistries, and unremarkable chest x-ray and CT head. Patient will be discharged to continue his currently prescribed. Critical Care Time: No Critical care attestation.: If time is entered above; I have spent that time in minutes in the direct care of this critically ill patient, excluding procedure time. ED Disposition Clinical Impression: Atypical chest pain Disposition: 01 HOME / SELF CARE / HOMELESS Is pt being admited?: No Does the pt Need Aspirin: No Condition: Stable Instructions: Nonspecific Chest Pain, Adult Additional Instructions: Take the medication as prescribed. Follow-up with your doctor or doctor/clinic provided. Return if symptoms worsen as indicated by your discharge instructions. Referrals: DAREN RIVAS MD [Primary Care Provider] - 3-5 Days Time of Disposition: 14:41
--- NOTE | 2021-10-28 10:26 | XRay Report ---
CHEST 1 VIEW 10/28/2021 10:13 AM INDICATION / CLINICAL INFORMATION: Chest Pain. COMPARISON: 04/13/2021 FINDINGS: SUPPORT DEVICES: None. HEART / MEDIASTINUM: Stable mild cardiomegaly LUNGS / PLEURA: Bibasilar airspace opacities have resolved since the previous exam. The lungs are gen erally clear. No pneumothorax. ADDITIONAL FINDINGS: No significant additional findings. IMPRESSION: 1. Stable mild cardiomegaly. Lungs clear. Signer Name: Rich Espinosa Jr, MD Signed: 10/28/2021 10:22 AM Workstation Name: [id number]
[2021-10-28 10:56] LABS: Hematocrit 31.2 % (35.5-45.6); Hemoglobin 9.7 gm/dl (11.8-15.2); Mean Corpuscular HGB Conc 31 % (32-34); Mean Corpuscular Volume 88 fl (84-94); Platelet Count 270 K/mm3 (140-440); Red Blood Count 3.55 M/mm3 (3.65-5.03)
[2021-10-28 11:07] LABS: INR 1.06 (0.87-1.13)
[2021-10-28 11:08] LABS: Partial Thromboplastin Time 33.2 Sec. (24.2-36.6)
[2021-10-28 11:30] LABS: Alanine Aminotransferase 26 units/L (7-56); Albumin 3.1 g/dL (3.9-5); Blood Urea Nitrogen 11 mg/dL (9-20); Calcium 8.3 mg/dL (8.4-10.2); Hemolysis Index 5
[2021-10-28 11:32] LABS: BUN/Creatinine Ratio 16
--- NOTE | 2021-10-28 12:35 | Cat Scan Report ---
CT head/brain wo con INDICATION: headache dizzy. TECHNIQUE: Routine CT head. All CT scans at this location are performed using CT dose reduction for A IMELDA by means of automated exposure control. COMPARISON: None. FINDINGS: Intracranial: Fiore-white matter differentiation is maintained. No intracranial hemorrhage. No extra a xial collection. No hydrocephalus. No herniation. Sinuses: Paranasal sinuses and mastoid air cells are essentially clear. Orbits: Globes are intact. Calvarium: No acute fracture. IMPRESSION: 1. No acute intracranial abnormality. Signer Name: Mekhi Bloom MD Signed: 10/28/2021 12:31 PM Workstation Name: [id number]
[2021-10-28 13:05] LABS: Total Cells Counted 100
[2021-10-28 13:06] LABS: Anisocytosis 2+; Band Neutrophils # (Manual) 0.1 K/mm3; Basophils % (Manual) 0 % (0.0-1.8); Platelet Estimate Consistent w Auto
[2021-10-28 13:39] LABS: RBC,Urine < 1.0 /HPF (0.0-6.0)
[2021-10-28 14:18] LABS: Color,Urine Yellow (Yellow)
[2021-10-28 14:27] VITALS: BP 137/66
--- NOTE | 2021-10-29 13:59 | Electrocardiograph Report ---
[facility] Test Date: 2021-10-28 Test Time: 10:00:44 Pat Name: DANIAL BARNHART Department: Room: Gender: M Vice President Of Compliance: 911 : [id number] Requested By: ELLEN MICHAELS Order Number: [id number] Reading MD: Brady Casanova Measurements Intervals [place] Rate: 89 P: 56 DE: 141 QRS: -72 QRSD: 85 T: 61 QT: 371 QTc: 453 Interpretive Statements Sinus rhythm Left anterior fascicular block Compared to ECG 10/25/2021 09:55:03 No significant change Electronically Signed On 10-29-2021 13:58:39 EDT by Brady Casanova
== END 2021-10-28 15:21 | disposition home or self-care (01) ==
LOC: ED 09:37
DX: R07.89 Other chest pain (principal); F17.200 Nicotine dependence, unspecified, uncomplicated; E11.9 Type 2 diabetes mellitus without complications; I10 Essential (primary) hypertension
CPT/HCPCS: 36415; 70450; 71045; 80053; 81001; 84484; 85007; 85025; 85610; 85730; 93005; 99285